=== PATIENT | female | born 1950 | race Caucasian/White ===

== ENCOUNTER 2017-01-09 20:48 | Inpatient (IN) | payer OTHER ==
[2017-01-09 20:59] VITALS: BMI 28.3
--- NOTE | 2017-01-09 22:02 | PDOC ---
History of Present Illness - History of Present Illness Initial Comments: 01/09/17 22:48 Patient is a 66 year old male from with significant medical hx of mitral valve prolapse, anemia, asthma, COPD, Hep C, multiple knee replacements, and anxiety who is presenting to the ED with three days of redness and pain to her posterior right knee. The patient developed a large, circular area of redness and pain to the skin to the back of her right knee three days ago. She characterizes her pain as sharp in quality and reports there is a heat component to the area. Today the patient woke up and noticed there was drainage to the area that began suddenly. She denies any fevers or chills. Patient was admitted to a rehab facility for three years after a knee replacement for a MRSA infection. 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 She was discharged from the [facility] within the past year. Patient is pre-op for hernia surgery (receiving sx in [place]). 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 Surgical Hx: hernia repair, appendectomy, multiple bilateral knee replacements, femur fracture PMD: Kaci Alvarez MD <Melissa Kee - Last Filed: 01/09/17 22:47> <Abimbola Zabala - Last Filed: 01/10/17 01:00> - General Chief Complaint: Wound Stated Complaint: ABCESS/WOUND Time Seen by Provider: 01/09/17 21:23 Past History <Melissa Kee - Last Filed: 01/09/17 22:47> - Past Medical History Anemia: Yes Asthma: Yes Cardiac Disorders: Yes (Mitral Valve Prolapse) COPD: Yes GI Disorders: Yes (hiatal hernia) HTN: Yes Psychiatric Problems: Yes (anxiety) Suicide Attempt (Hx): No Other medical history: adrenal insufficiency, osteoarthirits - Surgical History Abdominal Surgery: Yes (HERNIA REPAIR FOR RUPTURED HERNIA) Appendectomy: Yes Orthopedic Surgery: (FAITH KNEE REPLACEMENT) - Reproductive History Cervical CA: No Dysfunctional Uterine Bleeding: No Ectopic : No Endometrial CA: No Polycystic Ovaries: No Tubal Ligation: No - Immunization History Td Vaccination: Yes Immunization Up to Date: Yes - Psycho/Social/Smoking Cessation Hx Anxiety: No Suicidal Ideation: No Smoking Status: Yes Smoking History: Former smoker Years of Tobacco Use: 20 Have you smoked in the past 12 months: Yes Number of Cigarettes Smoked Daily: 2 If you are a former smoker, when did you quit?: may 2013 Cigars Per Day: 0 Information on smoking cessation initiated: No 'Breaking Loose' booklet given: 06/17/13 Hx Alcohol Use: No Drug/Substance Use Hx: No Substance Use Type: None Hx Substance Use Treatment: No <VjAbimbola - Last Filed: 01/10/17 01:00> - Past Medical History Allergies/Adverse Reactions: Allergies Allergy/AdvReac Type Severity Reaction Status Date / Time No Known Allergies Allergy Verified 07/10/16 15:36 Home Medications: Ambulatory Orders Escitalopram Oxalate [Lexapro -] 20 mg PO DAILY #0 tablet 07/11/13 Pantoprazole Sodium [Protonix -] 40 mg PO DAILY #0 tablet.ec 07/11/13 Lorazepam [Ativan] 1 mg PO TID PRN 10/28/13 Oxycodone HCl/Acetaminophen [Percocet 10-325 mg Tablet -] 1 - 2 tab PO Q4H PRN 10/28/13 Zolpidem Tartrate [Ambien] 10 mg PO HS PRN 10/28/13 Hydrocortisone [Cortef -] 20 mg PO DAILY 01/09/17 Metoprolol Succinate [Toprol Xl -] 25 mg PO BID 01/09/17 Review of Systems - Review of Systems Comments:: 01/09/17 22:49 CONSTITUTIONAL: Absent: fever, chills, diaphoresis, generalized weakness, malaise, loss of appetite HEENT: Absent: rhinorrhea, nasal congestion, throat pain, throat swelling, difficulty swallowing, mouth swelling, ear pain, eye pain, visual changes CARDIOVASCULAR: Absent: chest pain, syncope, palpitations, irregular heart rate, lightheadedness , peripheral edema RESPIRATORY: Absent: cough, shortness of breath, dyspnea with exertion, orthopnea, wheezing, stridor, hemoptysis GASTROINTESTINAL: Absent: abdominal pain, abdominal distension, nausea, vomiting, diarrhea, constipation, melena, hematochezia GENITOURINARY: Absent: dysuria, frequency, urgency, hesitancy, hematuria, flank pain, genital pain MUSCULOSKELETAL: Absent: myalgia, arthralgia, joint swelling SKIN: Present: pain, redness, drainage to skin posterior right knee Absent: itching, pallor HEMATOLOGIC/IMMUNOLOGIC: Absent: easy bleeding, easy bruising, lymphadenopathy, frequent infections ENDOCRINE: Absent: unexplained weight gain, unexplained weight loss, heat intolerance, cold intolerance NEUROLOGIC: Absent: headache, focal weakness or paresthesia, dizziness, unsteady gait, seizure, mental status changes, bladder or bowel incontinence. PSYCHIATRIC: Absent: anxiety, depression, suicidal or homicidal ideation, hallucinations <Melissa Kee - Last Filed: 01/09/17 22:47> *Physical Exam - Vital Signs Last Vital Signs Temp Pulse Resp BP Pulse Ox 97.8 F 67 18 102/66 97 01/09/17 20:53 01/09/17 20:53 01/09/17 20:53 01/09/17 20:53 01/09/17 20:53 - Physical Exam Comments: 01/09/17 22:50 GENERAL: Well developed, well nourished. Awake and alert. No acute distress. HEENT: Normocephalic, atraumatic. PERRLA, EOMI. No conjunctival pallor. Sclera are non- icteric. Moist mucous membranes. Oropharynx is clear. NECK: Supple. Full ROM. No JVD. Carotid pulses 2+ and symmetric, without bruits. No thyromegaly. No lymphadenopathy. CARDIOVASCULAR: Regular rate and rhythm. No murmurs, rubs, or gallops. Distal pulses are 2+ and symmetric. PULMONARY: No evidence of respiratory distress. Lungs clear to auscultation bilaterally. No wheezing, rales or rhonchi. ABDOMINAL: Soft. Non-tender. Non-distended. No rebound or guarding. No organomegaly. Normoactive bowel sounds. MUSCULOSKELETAL: Normal range of motion at all joints. No bony deformities or tenderness. No CVA tenderness. EXTREMITIES: No cyanosis. No clubbing. No edema. No calf tenderness. SKIN: Posterior right knee abscess that is by 9 x 5 cm with central area of draining purulence, erythematous, and tender. Warm and dry. Normal capillary refill. No jaundice. NEUROLOGICAL: Alert, awake, appropriate. Cranial nerves 2-12 intact. Normal speech. PSYCHIATRIC: Cooperative. Good eye contact. Appropriate mood and affect. <Melissa Kee - Last Filed: 01/09/17 22:47> - Vital Signs Last Vital Signs Temp Pulse Resp BP Pulse Ox 97.8 F 67 18 102/66 97 01/09/17 20:53 01/09/17 20:53 01/09/17 20:53 01/09/17 20:53 01/09/17 20:53 <Abimbola Zabala - Last Filed: 01/10/17 01:00> ED Treatment Course - LABORATORY CBC & Chemistry Diagram: 01/09/17 22:30 01/09/17 22:30 <Abimbola Zabala - Last Filed: 01/10/17 01:00> *DC/Admit/Observation/Transfer - Attestations Scribe Attestion: 01/09/17 22:51 Documentation prepared by Melissa Kee, acting as medical services assistant for Abimbola Zabala MD. <Melissa Kee - Last Filed: 01/09/17 22:47> - Discharge Dispostion Admit: Yes <Abimbola Zabala - Last Filed: 01/10/17 01:00> Diagnosis at time of Disposition: Cutaneous abscess Qualifiers: Site of cutaneous abscess: extremity Site of cutaneous abscess of extremity: lower extremity Laterality: right Qualified Code(s): L02.415 - Cutaneous abscess of right lower limb - Referrals Referrals: Kaci Alvarez MD [Primary Care Provider] -
[2017-01-09] MEDS ORDERED: VANCOMYCIN 1,000 MG in DEXTROSE 5%-WATER - 250 ML IVPB ONE (22:16)
[2017-01-09] MEDS ORDERED: PIPERACILLIN/TAZOB 3.375 GM 3.375 GM in DEXTROSE 5%-WATER - 50 ML IVPB ONE (22:16)
[2017-01-09] MEDS ORDERED: PIPERACILLIN/TAZOB 3.375 GM 50 ML IVPB ONE (22:48)
[2017-01-09] MEDS ORDERED: VANCOMYCIN 1 GRAM (PRE-DOCKED) 250 ML IVPB ONE (22:48)
[2017-01-09] MEDS ORDERED: morphine CARPU-JECT 2 MG/1 ML DISP.SYRIN IVPUSH ONE (22:54)
[2017-01-09 23:00] LABS: INR 1.06 (0.82-1.09); PROTHROMBIN TIME (PATIENT) 11.7 SEC (9.98-11.88)
[2017-01-09 23:03] LABS: ACTIVATED PTT 29.8 SECONDS (26.9-34.4)
[2017-01-09 23:06] LABS: BASOPHIL 0.8 % (0-2.0); EOSINOPHIL 2.8 % (0-4.5); MCH 29.1 pg (25.7-33.7); MCHC 33.2 g/dl (32.0-36.0); MEAN CELL VOLUME 87.7 fl (80-96); MEAN PLT VOLUME 7.4 fl (7.5-11.1); NEUTROPHILS 68.5 % (42.8-82.8); PLATELET COUNT 257 K/MM3 (134-434); RDW 14.9 % (11.6-15.6)
[2017-01-09] MEDS ORDERED: ONDANSETRON 4 MG/2 ML VIAL ONE (23:22)
[2017-01-09] MEDS ORDERED: morphine CARPU-JECT 2 MG/1 ML DISP.SYRIN ONE (23:22)
[2017-01-09 23:25] LABS: URINE APPEARANCE CLEAR; URINE BILIRUBIN NEGATIVE (NEGATIVE); URINE BLOOD NEGATIVE (NEGATIVE); URINE COLOR DKYELLOW; URINE GLUCOSE (UA) NEGATIVE (NEGATIVE); URINE KETONE NEGATIVE (NEGATIVE); URINE NITRITE NEGATIVE (NEGATIVE); URINE PROTEIN NEGATIVE (NEGATIVE); URINE UROBILINOGEN 4.0 E.U/dl E.U./dl (0.2-1.0)
[2017-01-09 23:28] LABS: URINE LEUK ESTERASE 1+ (NEGATIVE)
[2017-01-09 23:29] LABS: URINE HYALINE CAST 10 /lpf; URINE MUCUS RARE; URINE RBC 3 /hpf (0-3); URINE WBC 21 /hpf (3-5)
[2017-01-09] MEDS ORDERED: ONDANSETRON 4 MG/2 ML VIAL IVPUSH ONE (23:29)
[2017-01-09 23:39] LABS: ALBUMIN 3.4 g/dl (3.4-5.0); CALCIUM 9.1 mg/dL (8.5-10.1); COCKROFT - GAULT 60.588
[2017-01-09 23:41] LABS: BILIRUBIN,TOTAL 0.8 mg/dL (0.2-1.0); TOT PROT 6.9 g/dl (6.4-8.2)
--- NOTE | 2017-01-10 01:46 | HP ---
CHIEF COMPLAINT: Right knee redness, swelling, and pain. PCP: Tg Alvarez Orthoperdic surgeon: Dr. Cam Garcia, [facility] ( [address], [address], [place] [address], , ) HISTORY OF PRESENT ILLNESS: 66 year old female with pmh of multiple b/l knee replacement (last one in 2012) , MRSA septic arthritis and osteomyelitis (2012), HTN presented to the ED with complaint of right knee pain. The pain started on Sunday01/07/17 in posterior right knee, 06/05 at the most, constant, sharp, non radiating. Pt also had redness, swelling, heat in right posterior knee which was worsening and extended to ankle. The redness started to drain purulent and serosanguinous fluid and the redness receded to the right posterior calf. The patient does not know how it started, she said there was no trauma, no pimple, no skin cut that she know of. She has limited range of motion in that knee and now is unable to walk because of the pain. She denies any numbness, tingling, weakness in that leg. No fever, chills, n/v, dizziness, confusion. Pt also complained of urinary frequency for the past few days and dysuria last 2 days but no hematuria. ER course was notable for: (1) CBC, CMP, UA, Blood culture, wound cultur, urine culture (2) Xary right knee (3) Vancomycin, zosyn, Morphine, zofran Recent Travel: none PAST MEDICAL HISTORY: HTN, osteoarthritis, anxiety, gastric ulcer, adrenal insufficiency, MRSA septic arthritis and osteomyelitis (2013), Mitral valve prolapse, anxiety disorder, asthma, COPD, anemia, hepatitic C PAST SURGICAL HISTORY: Hernia repair, appendectomy, 1 total left knee replacement, 6 right knee replacement (3 total, 3 revisions over 20 years, last one was in 2012) Social History: Smoking: former smoker, quit 3 years ago, Alcohol: Drugs: Family History: Allergies No Known Allergies Allergy (Verified 07/10/16 15:36) HOME MEDICATIONS: Home Medications Medication Instructions Recorded Escitalopram Oxalate [Lexapro -] 20 mg PO DAILY #0 tablet 07/11/13 Pantoprazole Sodium [Protonix -] 40 mg PO DAILY #0 tablet.ec 07/11/13 Lorazepam [Ativan] 1 mg PO TID PRN 10/28/13 Oxycodone HCl/Acetaminophen 1 - 2 tab PO Q4H PRN 10/28/13 [Percocet 10-325 mg Tablet -] Zolpidem Tartrate [Ambien] 10 mg PO HS PRN 10/28/13 Hydrocortisone [Cortef -] 20 mg PO DAILY 01/09/17 Metoprolol Succinate [Toprol Xl -] 25 mg PO BID 01/09/17 REVIEW OF SYSTEMS CONSTITUTIONAL: Absent: fever, chills, diaphoresis, generalized weakness, malaise, loss of appetite, weight change HEENT: Absent: rhinorrhea, nasal congestion, throat pain, throat swelling, difficulty swallowing, mouth swelling, ear pain, eye pain, visual changes CARDIOVASCULAR: Absent: chest pain, syncope, palpitations, irregular heart rate, lightheadedness , peripheral edema RESPIRATORY: Absent: cough, shortness of breath, dyspnea with exertion, orthopnea, wheezing, stridor, hemoptysis GASTROINTESTINAL: Absent: abdominal pain, abdominal distension, nausea, vomiting, diarrhea, constipation, melena, hematochezia GENITOURINARY: Absent: dysuria, frequency, urgency, hesitancy, hematuria, flank pain, genital pain MUSCULOSKELETAL: arthralgia, joint swelling Absent: myalgia, back pain, neck pain SKIN: Absent: rash, itching, pallor HEMATOLOGIC/IMMUNOLOGIC: Absent: easy bleeding, easy bruising, lymphadenopathy, frequent infections ENDOCRINE: Absent: unexplained weight gain, unexplained weight loss, heat intolerance, cold intolerance NEUROLOGIC: Absent: headache, focal weakness or paresthesias, dizziness, unsteady gait, seizure, mental status changes, bladder or bowel incontinence PSYCHIATRIC: Absent: anxiety, depression, suicidal or homicidal ideation, hallucinations. PHYSICAL EXAMINATION Vital Signs - 24 hr 01/09/17 20:53 Temperature 97.8 F Pulse Rate 67 Respiratory 18 Rate Blood Pressure 102/66 O2 Sat by Pulse 97 Oximetry (%) GENERAL: Awake, alert, and fully oriented, in no acute distress. HEAD: Normal with no signs of trauma. EYES: Pupils equal, round and reactive to light, extraocular movements intact, sclera anicteric, conjunctiva clear. No lid lag. EARS, NOSE, THROAT: Ears normal, nares patent, oropharynx clear without exudates. Moist mucous membranes. NECK: Normal range of motion, supple without lymphadenopathy, JVD, or masses. LUNGS: Breath sounds equal, clear to auscultation bilaterally. No wheezes, and no crackles. No accessory muscle use. HEART: Regular rate and rhythm, normal S1 and S2 with murmur, rub or gallop. ABDOMEN: Soft, nontender, not distended, normoactive bowel sounds, no guarding, no rebound, no masses. No hepatomegaly or splenomegaly. MUSCULOSKELETAL: Normal range of motion at all joints. No bony deformities or tenderness. No CVA tenderness. UPPER EXTREMITIES: 2+ pulses, warm, well-perfused. No cyanosis. No clubbing. No peripheral edema. LOWER EXTREMITIES: 2+ pulses, warm, well-perfused. small area of anterior right knee redness and swelling, tenderness. Posterior right, keen swelling, tenderness, redness, draining minimal amount of serosanguinous fluid extending to calf/midtibia. Decreased range of motion in right knee. NEUROLOGICAL:. Normal speech. gait not observed. strength 5/5 in b/l lower ext, right knee flexion slightly limited due to pain, normal sensation to tactile stimuli. normal plantar reflex and patellar reflex b/l. PSYCHIATRIC: Cooperative. Good eye contact. Appropriate mood and affect. SKIN: Warm, dry, normal turgor, no rashes or lesions noted, normal capillary refill. Redness, swelling, warmth in rigth posterior knee extended to midtibia posteriorly. Laboratory Results - last 24 hr 01/09/17 01/09/17 01/09/17 22:30 22:30 22:30 WBC 8.0 RBC 4.04 Hgb 11.8 D Hct 35.4 MCV 87.7 MCHC 33.2 RDW 14.9 Plt Count 257 D MPV 7.4 L Neutrophils % 68.5 Lymphocytes % 16.2 D Monocytes % 11.7 H Eosinophils % 2.8 D Basophils % 0.8 INR 1.06 PTT (Actin FS) 29.8 Sodium 139 Potassium 4.2 D Chloride 101 Carbon Dioxide 24 Anion Gap 14 BUN 17 Creatinine 1.0 D Creat Clearance w eGFR 55.30 Random Glucose 84 Calcium 9.1 Total Bilirubin 0.8 D AST 20 ALT 18 D Alkaline Phosphatase 110 Total Protein 6.9 Albumin 3.4 Urine Color Urine Appearance Urine pH Urine Protein Urine Glucose (UA) Urine Ketones Urine Blood Urine Nitrite Urine Bilirubin Urine Urobilinogen Ur Leukocyte Esterase Urine RBC Urine WBC Ur Epithelial Cells Hyaline Casts Urine Mucus Blood Type Antibody Screen 01/09/17 01/09/17 22:30 23:21 WBC RBC Hgb Hct MCV MCHC RDW Plt Count MPV Neutrophils % Lymphocytes % Monocytes % Eosinophils % Basophils % INR PTT (Actin FS) Sodium Potassium Chloride Carbon Dioxide Anion Gap BUN Creatinine Creat Clearance w eGFR Random Glucose Calcium Total Bilirubin AST ALT Alkaline Phosphatase Total Protein Albumin Urine Color Dkyellow Urine Appearance Clear Urine pH 5.0 Urine Protein Negative Urine Glucose (UA) Negative Urine Ketones Negative Urine Blood Negative Urine Nitrite Negative Urine Bilirubin Negative Urine Urobilinogen 4.0 e.u/dl H Ur Leukocyte Esterase 1+ H Urine RBC 3 Urine WBC 21 Ur Epithelial Cells Rare Hyaline Casts 10 Urine Mucus Rare Blood Type O POSITIVE Antibody Screen Negative ASSESSMENT/PLAN: 66 year old female with pmh of multiple b/l knee replacement (last one in 2012) , MRSA septic arthritis and osteomyelitis (2012), HTN presented to the ED with complaint of right knee pain, redness, swelling, draining pus and serosanguinous fluid. Posterior right knee abscess/cellulitis r/o septic arthritis Pt has h/ b/l knee replacement pt has complication s/p knee replacement with MRSA sepstic arthritis Pt has redness, swelling, draining pus and serosanguinous fluid sepsis criteria not met by SIRS or Qsofa Xray right knee Consider CT right knee received vancomycin and zosyn in ed ID consult Dr Wray Consider orthopedic consult CBC in am ESR CRP Oxycodone 10mg PO q6h prn UTI pt with dysuria and frequency No suprapubic or CVA tenderness UA with positive leuk, wbc 20 Urine culture sent will follow On Zosyn HTN resume Toprol XL Anxiety disoder Lexapro Xanax Insomnia Ambien qhs prn Osteoarthtitis acetaminophen 650 po q6h prn COPD/Asthma not in exacerbation Duoneb PRN q4h FEN Fluid: NS at 75ml/h Electrolytes: NO abnormalities Nutrtion: low na diet DVT prophylaxis: heparin 5000U sq tid Disposition: Admit to [facility] Visit type - Emergency Visit Emergency Visit: Yes ED Registration Date: 01/10/17 Care time: The patient presented to the Emergency Department on the above date and was hospitalized for further evaluation of their emergent condition. - New Patient This patient is new to me today: Yes Date on this admission: 01/10/17 - Critical Care Critical Care patient: No
[2017-01-10] MEDS ORDERED: ACETAMINOPHEN 325 MG TABLET (FP) PO PRN (02:08)
[2017-01-10] MEDS ORDERED: ZOLPIDEM TARTRATE 5 MG TABLET PO PRN (02:09)
[2017-01-10] MEDS ORDERED: ALBUTEROL SO4 2.5/IPRATROPIUM 0.5 INH SOL 3 ML VIAL.NEB. NEB PRN (02:13)
[2017-01-10] MEDS ORDERED: ZOLPIDEM TARTRATE 5 MG TABLET ONE (02:15)
[2017-01-10] MEDS ORDERED: OXYCODONE/APAP 5/325MG COMBO TABLET ONE (02:15)
[2017-01-10] MEDS ORDERED: HEPARIN NA (PORCINE) 5,000 UNITS/ML 1ML VIAL ONE ×2 (02:16→14:27)
[2017-01-10] MEDS: oxyCODONE HCL 5 MG TABLET PO PRN ×3 (02:25→16:10)
--- NOTE | 2017-01-10 06:26 | PN ---
Teaching Attending Note Name of Resident: Nadeem Kim ATTENDING PHYSICIAN STATEMENT I saw and evaluated the patient. I reviewed the resident's note and discussed the case with the resident. I agree with the resident's findings and plan as documented. SUBJECTIVE: 66 year old female with history of MRSA septic arthritis/hardware infection post R knee replacement 4 years ago presents today c/o pain, swelling and redness of the right popliteal area since Sunday. Swelling and tenderness subsided after area started draining purulent material. Denies fever. PAST MEDICAL HISTORY: HTN osteoarthritis anxiety gastric ulcer adrenal insufficiency MRSA septic arthritis and osteomyelitis (2012) Mitral valve prolapse COPD anemia hepatitic C PAST SURGICAL HISTORY: Hernia repair appendectomy 1 total left knee replacement 6 right knee replacement (3 total, 3 revisions over 20 years, last one was in 2012) Social History: Smoking: former smoker, quit 3 years ago, Alcohol: Drugs: Family History: No history of premature CAD Allergies No Known Allergies Allergy (Verified 07/10/16 15:36) OBJECTIVE: Vital Signs Temperature 97.8 F 01/09/17 20:53 Pulse Rate 67 01/09/17 20:53 Respiratory Rate 18 01/09/17 20:53 Blood Pressure 102/66 01/09/17 20:53 O2 Sat by Pulse Oximetry (%) 97 01/09/17 20:53 ENERAL: Awake, alert, and fully oriented, in no acute distress. HEAD: Normal with no signs of trauma. EYES: Pupils equal, round and reactive to light, extraocular movements intact, sclera anicteric, conjunctiva clear. No lid lag. EARS, NOSE, THROAT: Ears normal, nares patent, oropharynx clear without exudates. Moist mucous membranes. NECK: Normal range of motion, supple without lymphadenopathy, JVD, or masses. LUNGS: Breath sounds equal, clear to auscultation bilaterally. No wheezes, and no crackles. No accessory muscle use. HEART: Regular rate and rhythm, normal S1 and S2 with murmur, rub or gallop. ABDOMEN: Soft, nontender, not distended, normoactive bowel sounds, no guarding, no rebound, no masses. No hepatomegaly or splenomegaly. MUSCULOSKELETAL: Normal range of motion at all joints. No bony deformities or tenderness. No CVA tenderness. UPPER EXTREMITIES: 2+ pulses, warm, well-perfused. No cyanosis. No clubbing. No peripheral edema. LOWER EXTREMITIES: 2+ pulses, warm, well-perfused. small area of anterior right knee redness and swelling, tenderness. Posterior right, keen swelling, tenderness, redness, draining minimal amount of serosanguinous fluid extending to calf/midtibia. Decreased range of motion in right knee. NEUROLOGICAL:. Normal speech. gait not observed. strength 5/5 in b/l lower ext, right knee flexion slightly limited due to pain, normal sensation to tactile stimuli. normal plantar reflex and patellar reflex b/l. PSYCHIATRIC: Cooperative. Good eye contact. Appropriate mood and affect. SKIN: Warm, dry, normal turgor, no rashes or lesions noted, normal capillary refill. Redness, swelling, warmth in rigth posterior knee extended to midtibia posteriorly. CBC, BMP 01/09/17 22:30 01/09/17 22:30 UA - positive for UTI ASSESSMENT AND PLAN: Posterior right knee abscess/cellulitis r/possible OM and risk of infected hardware. History of MRSA - Vancomycin IV - ID eval - Imaging - XR and CT if needed - Surgery eval for drainage UTI - Zosyn given - cultures are sent HTN resume Toprol XL , moitor BP DVT PPX - heparin SQ anticipated length of treatment with broad spectrum IV antibiotics is greater then 2 midnights. Admit
[2017-01-10] MEDS: HEPARIN NA (PORCINE) 5,000 UNITS/ML 1ML VIAL SQ SCH ×2 (06:31→14:30)
[2017-01-10] MEDS ORDERED: PIPERACILLIN/TAZOB 3.375 GM/50 ML PRE-DOCKED IVPB ONE (08:00)
[2017-01-10 08:23] LABS: MCH 29.5 pg (25.7-33.7); MCHC 33.3 g/dl (32.0-36.0); MEAN CELL VOLUME 88.5 fl (80-96); MEAN PLT VOLUME 7.3 fl (7.5-11.1); PLATELET COUNT 247 K/MM3 (134-434); RDW 14.8 % (11.6-15.6); WHITE BLOOD COUNT 6.3 K/mm3 (4.0-10.0)
--- NOTE | 2017-01-10 09:23 | CONSULT ---
Consult - text type - Consultation Consultation Note: FULL CONSULT DICTATED IMP: INFECTED RIGHT TOTAL KNEE REVISION PLAN: TRANSFER TO PATIENTS ORTHOPEDIST(DR HAIRSTON)
[2017-01-10] MEDS ORDERED: oxyCODONE HCL 5 MG TABLET ONE (09:59)
[2017-01-10] MEDS ORDERED: METOPROLOL SUCCINATE 25 MG TAB.SR.24H (FP) PO SCH (10:00)
[2017-01-10] MEDS ORDERED: HYDROCORTISONE 20 MG TABLET PO SCH (10:00)
[2017-01-10] MEDS ORDERED: PANTOPRAZOLE 40 MG TABLET (FP) PO SCH (10:00)
[2017-01-10] MEDS ORDERED: ESCITALOPRAM OXALATE 20 MG TABLET (FP) PO SCH (10:00)
[2017-01-10] MEDS ORDERED: LORazepam 0.5 MG TABLET ONE (10:08)
[2017-01-10] MEDS: LORazepam 1 MG TABLET PO PRN ×2 (10:08→16:09)
[2017-01-10] MEDS ORDERED: VANCOMYCIN 1 GRAM (PRE-DOCKED) 1,000 MG/250 ML BAG IVPB SCH (10:15)
--- NOTE | 2017-01-10 10:49 | CONS ---
DATE OF CONSULTATION: 01/10/2017 EMERGENCY ROOM DICTATION/[facility] Patient is a 66-year-old female with a long history of multiple surgeries to her right knee. She had a right total knee replacement arthroplasty that was infected. It had multiple surgeries and debridements, and eventually she had a revision stem placement with significant shortening of the knee. This was done over 2 years ago. Patient has been doing okay, noticed having some drainage out of the posterior aspect of the knee, and presents to our office today. Patient is alert and oriented and in no apparent distress. PHYSICAL EXAMINATION: She has a fluctuance in the posterior inferior aspect of the popliteal fossa with a draining sinus. This sinus was milked and got out approximately 40 mL of purulent material. Some of the erythema wraps around to the area of the anterior aspect of the knee, and she has some swelling there, as well. The rest of the calf is soft and nontender. She is about a few inches shorter on the right side than on the left. She has multiple surgical scars anteriorly and medially in the knee with poor range of motion of that knee, good motion hip, ankle and toes. IMAGING: X-rays show a cemented revision stem with rods up and down the femoral and tibial canals. No evidence of any fracture or obvious lucencies at this time. LABORATORY DATA: Her white count is within normal limits. Cultures are pending. 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 Her infection was at one time with methicillin-resistant staphylococcus aureus and now with recurrence of her infection. PLAN: At this point, I believe that the patient needs to be transferred back to her orthopedic surgeon in [place], whom she says is Dr. Garcia. We will contact Dr. Garcia and arrange for a transfer. Currently, patient is in no distress with no signs of sepsis. After cultures, antibiotics will be instituted in the interim, and we will arrange for transfer to her orthopedic surgeon. MASON BEONIT M.D. [id number]
[2017-01-10] MEDS ORDERED: PANTOPRAZOLE 40 MG TABLET (FP) ONE (10:53)
[2017-01-10] MEDS ORDERED: PIPERACILLIN/TAZOB 3.375 GM 50 ML IVPB ONE (10:53)
[2017-01-10] MEDS ORDERED: VANCOMYCIN 1 GRAM (PRE-DOCKED) 250 ML IVPB ONE (10:53)
--- NOTE | 2017-01-10 12:08 | CONS ---
DATE OF CONSULTATION: 01/10/2017 REQUESTING PHYSICIAN: The hospitalist service. HISTORY OF PRESENT ILLNESS: This is a 66-year-old woman with a past medical history of multiple knee surgeries. She has had six surgeries to her right knee, three total knee replacements, three revisions (the last was in 2012). She has had a left total knee replacement about 20 years ago. She reports MRSA in the knee, was on antibiotics, she thinks, for most of 2013 and I suspect 2014. She was at the [facility] until May of 2016. Since then, she has been living in a senior home. She reports acute onset on Sunday where her right leg got behind her right knee. The leg got hot and red. She had burning sensation. It traveled down to her ankle. It has now traveled around to the anterior side. She noted some oozing from the area. She denied any fevers or chills. She came to the emergency room with these complaints. She denies any insect bites. She denies any fevers or chills. In the emergency room, she had an x-ray of the knee. She had drainage from the site, which was cultured. She was started on vancomycin and Zosyn. She was given morphine for pain. She is currently resting comfortably with continued pain of the right knee. She notices now there is erythema around the anterior aspect. PAST MEDICAL HISTORY: Is notable for hypertension, osteoarthritis, anxiety, perforated gastric ulcer. She has MRSA prosthetic knee infection, mitral valve prolapse, anxiety disorder, asthma, COPD, anemia, hepatitis C (does not get treated). SURGICAL HISTORY: Is notable for appendectomy, one left total knee replacement, six right knee surgeries, three total replacements, three revisions, and she had a gastric ulcer repair. She reports hiatal hernia surgery. ALLERGIES: She has no known drug allergies. MEDICATIONS: At home include hydrocortisone, metoprolol. SOCIAL HISTORY: She is a former substance abuser, has not used anything in 40 years. She is a former smoker, quit three years ago. REVIEW OF SYSTEMS: There are no fevers or chills. She has no cough. She has no nausea, vomiting, diarrhea, or dysuria. Her symptoms are limited to her leg. Her orthopedist is Dr. Cam Garcia at [facility]. PHYSICAL EXAMINATION General: She is awake and alert. Vital signs: She has no fever. Her temperature is 98.2, her pulse is 84, blood pressure is 118/64, respiratory rate 18, she is saturating 98% on room air. HEENT: She is normocephalic. Her eyes are anicteric. Neck: Supple. Lungs: Clear to auscultation. Heart: Regular rate and rhythm. Abdomen: Soft, nontender. Extremities: Notable for a well-healed left total knee incision. Right leg is several inches shorter than the left. She has erythema around the entire back wrapping around to the front of her right knee. There is purulent drainage from the back side, from the posterior aspect of the wound. She has a good dorsalis pedis pulse DIAGNOSTIC DATA: White count is 6.3, hemoglobin 7.7, platelets are 247. INR is 1. BUN 17, creatinine 1. LFTs are normal. CRP of 4.1. Lactic acid is 1.3. UA shows 1+ leukocytes with 21 white cells. Prior culture from when her knee was drained at [facility] in 2012 showed MRSA. Cultures of the blood in the wound are pending at this time. Chest x-ray shows a large hiatal hernia, no evidence of pneumonia. SUMMARY: 1. This is a 66-year-old woman with what appears to be an abscess of her right knee. Concern is for recurrent right total knee replacement. Patient was discussed with the orthopedist, Dr. Dumont. Recommendations are for transfer back to her doctor given the fact that she has such a complicated history of knee surgery and infection. Would continue vancomycin and Zosyn as ordered until cultures are back. Would agree that transfer is probably the best option in terms of managing her leg. 2. Hiatal hernia. Would definitely postpone surgery at this time. 3. History of hepatitis C, which has not been treated. YOVANI TEJEDA M.D. [id number]
[2017-01-10 12:31] LABS: ERYTHROCYTE SEDIMENTATION RATE 30 mm/hr (0-30)
--- NOTE | 2017-01-10 14:43 | EKG ---
Test Reason : Blood Pressure : / mmHG Vent. Rate : 063 BPM Atrial Rate : 063 BPM P-R Int : 168 ms QRS Dur : 090 ms QT Int : 446 ms P-R-T Axes : 021 006 032 degrees QTc Int : 456 ms NORMAL SINUS RHYTHM SEPTAL INFARCT (CITED ON OR BEFORE 05-JUL-2013) ABNORMAL ECG WHEN COMPARED WITH ECG OF 10-JUL-2016 15:53, QRS DURATION HAS INCREASED QUESTIONABLE CHANGE IN INITIAL FORCES OF SEPTAL LEADS Confirmed by KELLY FLOOD MD ([id number]) on 01/10/2017 2:43:23 PM Referred By: Confirmed By:KELLY FLOOD MD
--- NOTE | 2017-01-10 15:22 | DS ---
Physical Exam: SUBJECTIVE: Patient seen and examined at bedside this morning. Complaints of pain over the posterior part of the knee. No other complaints. Denies chest pain , sob, cough, palpitation, abdominal pain, nausea or vomiting, fever, chills, rigors or sweating. OBJECTIVE: Vital Signs Period Temp Pulse Resp BP Sys/Xiao Pulse Ox Last 24 Hr 97.8 F-98.2 F 71-89 18-19 118-121/60-76 98-99 PHYSICAL EXAM GENERAL: Moderately built female, Awake, alert, and fully oriented, in no acute distress. HEAD: Normal with no signs of trauma. EYES: EOM intact, no pallor or icterus. EARS, NOSE, THROAT: Ears normal, nares patent, oropharynx clear without exudates. Moist mucous membranes. NECK: Normal range of motion, supple without lymphadenopathy, JVD, or masses. LUNGS: Breath sounds equal, clear to auscultation bilaterally. No wheezes, and no crackles. No accessory muscle use. HEART: Regular rate and rhythm, normal S1 and S2 with murmur, rub or gallop. ABDOMEN: Soft, nontender, not distended, normoactive bowel sounds, no guarding, no rebound, no masses. No hepatomegaly or splenomegaly. MUSCULOSKELETAL: Normal range of motion at all joints. No bony deformities or tenderness. No CVA tenderness. UPPER EXTREMITIES: 2+ pulses, warm, well-perfused. No cyanosis. No clubbing. No peripheral edema. LOWER EXTREMITIES: 2+ pulses, warm, well-perfused. small area of anterior right knee redness and swelling, tenderness. Posterior right, knee swelling, tenderness, redness, draining minimal amount of serosanguinous fluid extending to calf/mid tibia. Decreased range of motion in right knee. NEUROLOGICAL:. Normal speech. gait not observed. strength 5/5 in b/l lower ext, right knee flexion slightly limited due to pain, normal sensation to tactile stimuli. normal plantar reflex and patellar reflex b/l. PSYCHIATRIC: Cooperative. Good eye contact. Appropriate mood and affect. SKIN: Warm, dry, normal turgor, no rashes or lesions noted, normal capillary refill. Redness, swelling, warmth in rigth posterior knee extended to midtibia posteriorly. LABS Laboratory Results - last 24 hr 05/17/17 05/17/17 05/17/17 01:46 08:15 08:15 WBC 6.3 RBC 3.98 Hgb 11.7 Hct 35.2 MCV 88.5 MCHC 33.3 RDW 14.8 Plt Count 247 MPV 7.3 L ESR 30 Lactic Acid 1.340 C-Reactive Protein 4.1 H Right knee x-ray 01/10/17: Right knee: HISTORY: Abscess. 4 views of the right knee are provided. There is a constrained right knee revision arthroplasty with longstem tibial and femoral components and the tips of the tibial and femoral stems are not visualized in their entirety on the frontal view and the tibial stem is not fully imaged on the lateral view. There is lucency at the cement bone interface on the femoral side and recommend clinical correlation for loosening or infection. A linear lucency extending through the cement toward the lateral aspect of the femoral stem is also seen and recommend clinical correlation. There is soft tissue swelling. IMPRESSION: Right knee arthroplasty as above. HOSPITAL COURSE: Date of Admission:01/10/17 Date of Discharge: 01/10/17 66 year old female with pmh of multiple b/l knee replacement (last one in 2012) , MRSA septic arthritis and osteomyelitis (2012), HTN presented to the ED with complaint of right knee pain, redness, swelling, draining pus and serosanguinous fluid was admitted overnight for evaluation of posterior right knee abscess/cellulitis and to r/o septic arthritis. As per the patient, she has had multiple surgeries in the right knee (6times) and had an infection 2 years ago . Had complication s/p knee replacement with MRSA sepstic arthritis in the same knee as per the patient. On admission, she had redness, swelling, draining pus and serosanguinous fluid coming out from right popliteal fossa. Erythema later spreaded to the anterior part of the knee. On arrival, she was afebrile, hemodynamically stable and didn' t meet SIRS criteria or qSOFA. Patient was treated with IV fluids, IV Vancomycin and Zosyn. Dr Dumont ( Orthopedics) saw the patient this morning and recommended Incision and Drainage with debridement of the right knee. Patient's orthopedic surgeon Dr. Jose Levy was called at [phone] ([address]). Dr Dumont and Dr. Garcia spoke over the phone regarding the further management of the patient. Plan is to send the patient to [place] [id number] [facility] ) for surgery tomorrow. Spoke with Dr. Garcia over the phone and he accepted the patient. Spoke with his PA Mr. Cross ) who suggested to keep the patient NPO after midnight for the procedure. Spoke with the Orthopedic resident at [facility] ( Dr Yin) over the phone who is trying to arrange a bed at the hospital so we could start the process of transfer. Plan of care explained to the patient. She verbalized understanding. Case discussed with Dr. Rojas. Minutes to complete discharge: 45 Discharge Summary Reason For Visit: SKIN ABSCESS Current Active Problems Skin abscess (Acute) Condition: Stable - Instructions Diet, Activity, Other Instructions: You have an infection in the back of the knee called popliteal fossa abscess which needs to be drained and needs debridement. Spoke with Dr. Garcia over the phone and he accepted you at the [facility]. He will be operating tomorrow so you will not be given anything to eat after midnight. If you require any information regarding your health and the course of hospital stay, please feel free to contact us. Referrals: Kaci Alvarez MD [Primary Care Provider] - - Home Medications Comprehensive Discharge Medication List: Ambulatory Orders Escitalopram Oxalate [Lexapro -] 20 mg PO DAILY #0 tablet 07/11/13 Pantoprazole Sodium [Protonix -] 40 mg PO DAILY #0 tablet.ec 07/11/13 Lorazepam [Ativan] 1 mg PO TID PRN 10/28/13 Oxycodone HCl/Acetaminophen [Percocet 10-325 mg Tablet -] 1 - 2 tab PO Q4H PRN 10/28/13 Zolpidem Tartrate [Ambien] 10 mg PO HS PRN 10/28/13 Hydrocortisone [Cortef -] 20 mg PO DAILY 01/09/17 Metoprolol Succinate [Toprol Xl -] 25 mg PO BID 01/09/17 This patient is new to me today: Yes Date on this admission: 01/10/17 Emergency Visit: Yes ED Registration Date: 01/10/17 Care time: The patient presented to the Emergency Department on the above date and was hospitalized for further evaluation of their emergent condition. Critical Care patient: No - Discharge Referral Referred to [facility] Med P.C.: No
--- NOTE | 2017-01-10 16:11 | PN ---
Teaching Attending Note Name of Resident: Pauly Arevalo ATTENDING PHYSICIAN STATEMENT I saw and evaluated the patient. I reviewed the resident's note and discussed the case with the resident. I agree with the resident's findings and plan as documented. SUBJECTIVE: no fever or chills, no abd pain, increased urination but no burning or hesitancy OBJECTIVE: NAD , AAOx3 CV: RRR. lungs : CTAB abd: soft, NT< ND < NL BS Ext : RLE with erythematous area, and induration on the popliteal area. with a small opening with no drainage . DP 2+ b/l . possible R knee effusion . surgical scars on both knees anteriorly ASSESSMENT AND PLAN: 66 y/o lady with h/o adrenal insufficiency , B/l TKR, and septic joint who presented with R posterior knee pain and swelling , and was found to have a draining abscess 1- R popliteal abscess with possible involvement of the artificial joint . ( lucency at level of cement /bone junction on xray ) puss induced by ortho with squeezing - cont vanco and zosyn - blood cx and wound cx - pt is accepted for Tx to ortho at [facility] , for further mgt 2- asymptomatic pyuria . monitor . already on Abx 3- adrenal insufficiency , cont steroids daily dispo : accepted for tx to OSH
[2017-01-10] MEDS ORDERED: PIPERACILLIN/TAZOB 3.375 GM/50 ML PRE-DOCKED IVPB SCH (18:00)
[2017-01-10 18:20] VITALS: BP 106/50; PULSE 77; TEMP 98
== END 2017-01-10 20:16 | disposition short-term general hospital (02) | DRG 560 ==
LOC: JER 20:48 → JERBED 01-10 01:00 → UNDOADMIN 01-10 01:21 → JERBED 01-10 01:21 → J6S 01-10 16:02
PROVIDERS: ADMIT Internal Medicine; ATTEND Internal Medicine
DX: T84.53XA Infection and inflammatory reaction due to internal right knee prosthesis, initial encounter (principal); L02.415 Cutaneous abscess of right lower limb; N39.0 Urinary tract infection, site not specified; E27.40 Unspecified adrenocortical insufficiency; J44.9 Chronic obstructive pulmonary disease, unspecified; J45.909 Unspecified asthma, uncomplicated; D64.9 Anemia, unspecified; I34.1 Nonrheumatic mitral (valve) prolapse; K44.9 Diaphragmatic hernia without obstruction or gangrene; G47.00 Insomnia, unspecified; F41.9 Anxiety disorder, unspecified; I10 Essential (primary) hypertension; K25.9 Gastric ulcer, unspecified as acute or chronic, without hemorrhage or perforation; Z96.653 Presence of artificial knee joint, bilateral; Z87.891 Personal history of nicotine dependence; Z86.19 Personal history of other infectious and parasitic diseases; Y83.8 Other surgical procedures as the cause of abnormal reaction of the patient, or of later complication, without mention of misadventure at the time of the procedure; Y92.098 Other place in other non-institutional residence as the place of occurrence of the external cause
CPT/HCPCS: 36415; 71010-TC; 73562-TC-RT; 80053; 81003; 81015; 83605; 85025; 85027; 85610; 85651; 85730; 86140; 86850; 86900; 86901; 87040; 87070; 87086; 87186; 87205; 93005; 93010; 99284-25; J1644

== ENCOUNTER 2017-03-26 14:09 | Inpatient (IN) | payer OTHER ==
--- NOTE | 2017-03-26 14:33 | PDOC ---
History of Present Illness <Ashli Light - Last Filed: 03/26/17 18:12> - General History Source: Patient Exam Limitations: Clinical Condition - History of Present Illness Initial Comments: 03/26/17 14:37 67y F hx of anxiety, copd, osteoarthritis, HCV, recent skin infection which she is on bactrim for presents from home via EMS for complaing of persistent vomiting since satuday (x 3 days). Pt endorses epgiastric pain that is constant. Pt notes the vomiting is black colored. Pt denies any diarrhea, chest pain, shortness of breath, palpitations, fever/chills, dysuria. Pt note she does take motrin 4x daily for a while. history limited due to the pts clinical condition. The pt does endorse having a dark color stool today. PMD dr. kaci alvarez <Joselito Linder - Last Filed: 03/27/17 07:36> - General Chief Complaint: Nausea/Vomiting Stated Complaint: VOMITING Time Seen by Provider: 03/26/17 14:30 Past History <Ashli Light - Last Filed: 03/26/17 18:12> - Past Medical History Anemia: Yes Asthma: Yes Cardiac Disorders: Yes (Mitral Valve Prolapse) COPD: Yes Psychiatric Problems: Yes (anxiety) Suicide Attempt (Hx): No - Surgical History Abdominal Surgery: Yes (HERNIA REPAIR FOR RUPTURED HERNIA) Appendectomy: Yes Orthopedic Surgery: (FAITH KNEE REPLACEMENT) - Reproductive History Cervical CA: No Dysfunctional Uterine Bleeding: No Ectopic : No Endometrial CA: No Polycystic Ovaries: No Tubal Ligation: No - Immunization History Td Vaccination: Yes Immunization Up to Date: Yes - Psycho/Social/Smoking Cessation Hx Anxiety: No Suicidal Ideation: No Smoking Status: Yes Smoking History: Former smoker Years of Tobacco Use: 20 Have you smoked in the past 12 months: No Number of Cigarettes Smoked Daily: 2 If you are a former smoker, when did you quit?: may 2013 Cigars Per Day: 0 'Breaking Loose' booklet given: 06/17/13 Hx Alcohol Use: No Drug/Substance Use Hx: No Substance Use Type: None Hx Substance Use Treatment: No <Joselito Linder - Last Filed: 03/27/17 07:36> - Past Medical History Allergies/Adverse Reactions: Allergies Allergy/AdvReac Type Severity Reaction Status Date / Time No Known Allergies Allergy Verified 07/10/16 15:36 Home Medications: Ambulatory Orders Escitalopram Oxalate [Lexapro -] 20 mg PO DAILY #0 tablet 07/11/13 Pantoprazole Sodium [Protonix -] 40 mg PO DAILY #0 tablet.ec 07/11/13 Lorazepam [Ativan] 1 mg PO TID PRN 10/28/13 Oxycodone HCl/Acetaminophen [Percocet 10-325 mg Tablet] 1 - 2 tab PO Q4H PRN 12/08 Zolpidem Tartrate [Ambien] 10 mg PO HS PRN 10/28/13 Hydrocortisone [Cortef -] 10 mg PO DAILY 01/09/17 Metoprolol Succinate [Toprol XL -] 25 mg PO BID 01/09/17 Sulfamethoxazole/Trimethoprim [Bactrim Ds -] 1 tab PO DAILY 03/26/17 Review of Systems - Review of Systems Able to Perform ROS?: Yes Comments:: 03/26/17 14:41 history limited due to her clinical condition Constitutional - no reported Fever, Chills, HEENT: no reported vision changes, sore throat Respiratory: no reported cough, sob, hemoptysis Cardiac: no reported chest pain, palpitations, light headedness, leg swelling Abd/GI: +abd pain, nausea, vomiting, no reported blood per rectum, melena, diarrhea : no reported dysuria, frequency, discharge Musculskelatal - no reported back pain, joint swelling skin - no reported bruising, erythema, rash neurological: no reported headache, numbness, focal weakness, tingling, ataxia, hematologic: no reported anemia, easy bruising, easy bleeding <Joselito Linder - Last Filed: 03/27/17 07:36> *Physical Exam - Vital Signs Last Vital Signs Temp Pulse Resp BP Pulse Ox 100.4 F H 110 H 25 H 103/79 99 03/26/17 14:50 03/26/17 15:41 03/26/17 15:41 03/26/17 15:41 03/26/17 15:41 <Ashli Light - Last Filed: 03/26/17 18:12> - Physical Exam Comments: 03/26/17 14:42 GENERAL: The patient is awake, alert, and fully oriented, generally weak HEAD: Normocephalic, atraumatic. EYES: extraocular movements intact, sclera anicteric, conjunctiva clear. ENT: Normal voice, dry mucous membranes. NECK: Normal range of motion, supple LUNGS: Breath sounds equal, clear to auscultation bilaterally. No wheezes, no rhonchi, no rales. HEART: tachycardic ABDOMEN: Soft, mild epigastric tenderness, normoactive bowel sounds. No guarding, no rebound. . No CVA tenderness EXTREMITIES: Normal range of motion, no edema. No clubbing or cyanosis. No cords, erythema, or tenderness. NEUROLOGICAL: No facial assymetry, Normal speech, PSYCH: Normal mood, normal affect. SKIN: hot to touch, Dry, increased skin turgor, 03/26/17 15:00 rectal: soliman color stool, no blood/melena noted, guaaic pending <KailashJoselito - Last Filed: 03/27/17 07:36> Heart Score/ECG Review - ECG Impressions Comment:: 03/26/17 14:42 Twelve-lead EKG was performed and reviewed by me. Sinus rhythm Rate of 118 [place] is normal Nonspecific ST wave changes imp: Sinus tachycardia <KailashStevenJoselito - Last Filed: 03/27/17 07:36> ED Treatment Course - LABORATORY CBC & Chemistry Diagram: 03/26/17 14:40 03/26/17 14:40 - ADDITIONAL ORDERS Additional order review: Laboratory Results 03/26/17 03/26/17 03/26/17 14:50 14:50 14:50 INR PTT (Actin FS) VBG pH 7.48 H POC VBG pCO2 22.7 L POC VBG pO2 60.3 H Mixed VBG HCO3 16.7 L Sodium Potassium Chloride Carbon Dioxide Anion Gap BUN Creatinine Creat Clearance w eGFR Random Glucose Lactic Acid 1.9 Calcium Total Bilirubin AST ALT Alkaline Phosphatase Creatine Kinase Troponin I Total Protein Albumin Lipase Urine Color Yellow Urine Appearance Clear Urine pH 5.0 Urine Protein Negative Urine Glucose (UA) Negative Urine Ketones Negative Urine Blood Negative Urine Nitrite Negative Urine Bilirubin Negative Urine Urobilinogen Negative Ur Leukocyte Esterase Negative Stool Occult Blood Negative Blood Type Antibody Screen 03/26/17 03/26/17 03/26/17 14:50 14:49 14:40 INR 1.04 PTT (Actin FS) 23.4 L VBG pH POC VBG pCO2 POC VBG pO2 Mixed VBG HCO3 Sodium Potassium Chloride Carbon Dioxide Anion Gap BUN Creatinine Creat Clearance w eGFR Random Glucose Lactic Acid Calcium Total Bilirubin AST ALT Alkaline Phosphatase Creatine Kinase Troponin I Total Protein Albumin Lipase Urine Color Urine Appearance Urine pH Urine Protein Urine Glucose (UA) Urine Ketones Urine Blood Urine Nitrite Urine Bilirubin Urine Urobilinogen Ur Leukocyte Esterase Stool Occult Blood Blood Type O POSITIVE Antibody Screen Negative 03/26/17 03/26/17 14:40 14:40 INR PTT (Actin FS) VBG pH POC VBG pCO2 POC VBG pO2 Mixed VBG HCO3 Sodium 133 L Potassium 3.8 Chloride 101 Carbon Dioxide 20 L Anion Gap 12 BUN 58 H D Creatinine 1.0 Creat Clearance w eGFR 55.14 Random Glucose 116 H D Lactic Acid Calcium 8.7 Total Bilirubin 0.6 D AST 39 H D ALT 27 D Alkaline Phosphatase 88 Creatine Kinase 56 Troponin I 0.02 Total Protein 6.1 L Albumin 2.8 L Lipase 123 Urine Color Urine Appearance Urine pH Urine Protein Urine Glucose (UA) Urine Ketones Urine Blood Urine Nitrite Urine Bilirubin Urine Urobilinogen Ur Leukocyte Esterase Stool Occult Blood Blood Type Antibody Screen 03/26/17 14:40 RBC 4.71 MCV 83.7 MCHC 32.7 RDW 16.2 H MPV 7.5 Neutrophils % 71.8 Lymphocytes % 17.6 Monocytes % 10.0 Eosinophils % 0.2 D Basophils % 0.4 - Medications Given in the ED: ED Medications Discontinued Medications Generic Name Dose Route Start Last Admin Trade Name Robelq PRN Reason Stop Dose Admin Acetaminophen 1,000 mg 03/26/17 14:44 03/26/17 15:00 Ofirmev Injection - IVPB 03/26/17 14:45 1,000 mg ONCE ONE Administration Sodium Chloride 1,000 mls @ 1,000 mls/hr 03/26/17 14:36 03/26/17 14:59 Normal Saline - IV 03/26/17 15:35 1,000 mls/hr .Q1H ONE Administration Famotidine/Sodium Chloride 20 50 mls @ 100 mls/hr 03/26/17 14:38 03/26/17 15:55 mg/ Miscellaneous IVPB 03/26/17 15:07 100 mls/hr ONCE ONE Administration <Ashli Light - Last Filed: 03/26/17 18:12> - LABORATORY CBC & Chemistry Diagram: 03/26/17 21:45 03/26/17 18:23 <Joselito Linder - Last Filed: 03/27/17 07:36> Medical Decision Making - Medical Decision Making 03/26/17 17:27 Dr. Kaci alvarez paged via phone answering service. 03/26/17 17:29 Dr. Alvarez responded to the paged and the patient's case was discussed. 03/26/17 18:09 Dr. Burk was paged via phone answering service. 03/26/17 18:12 Dr. Burk responded to the paged and the patients case was discussed. <Ashli Light - Last Filed: 03/26/17 18:12> - Medical Decision Making 03/26/17 14:43 vomiting, potentially UGIB secondary to NSAID use vs gastroenteritis vs pancreatitis pt apperas dry, tachycardic, borderline hypotensive will fluid resusitate awaint stool guaic pt noted febrile here 03/26/17 17:22 pts labs reviewed mild leukocytosis no anemia BUN elevated relativ to cr - possible GIB vs prerenal azotemia stool guaiac negative here pts HR improved to 94s bp also improved will obtiain CT abd as pt still complianing of some abdominal pain however her abdomen is soft nontender will notify dr. Kaci alvarez to see if she has a history of GIB/ulcers. will likely need admission for furthe rhydration 03/26/17 17:33 03/26/17 17:[address] kaci alvarez (PMD) complicated history - recent admission for MRSA infection of joint was on a picc line with Vancomycin. Pt also has a large hiatal hernia that was pending surgery that was put off due to her MRSA infection. Pt also has hx of adrenal insufficinecy and is on chronic steroids. Had workup by dr. burk, s/p endoscopy w/o ulcer. Possible sources of infection include her joint, CDiff due to recent abx requests admission under hospitalist service 03/26/17 18:07 pt had episode of vomiting here that was black apperaing will start protonix gtt hr/vitals stable will notify dr. burk 03/26/17 18:08 case dw DIRECTOR OF [employer]BI[employer]ING felix Byrne with admission to [facility] for GIB workup admit under dr. Bruce service Case discussed in detail with admitting physician including history, physical exam and ancillary studies. Admitting physician has assumed care for the patient, will follow all pending diagnostics and will complete the evaluation and treatment. CRITICAL CARE DOCUMENTATION: I spent ~45 minutes of Critical Care time, excluding separately billable procedures, involving high complexity decision making to assess, manipulate and support vital system function(s) to treat single or multiple vital organ system failure and/or to prevent further life threatening deterioration of the patient' s condition. 03/26/17 18:13 dr burk notified of case. <Joselito Linder - Last Filed: 03/27/17 07:36> *DC/Admit/Observation/Transfer <Ashli Light - Last Filed: 03/26/17 18:12> - Discharge Dispostion Admit: Yes <Joselito Linder - Last Filed: 03/27/17 07:36> Diagnosis at time of Disposition: Sepsis Qualifiers: Sepsis type: sepsis due to unspecified organism Qualified Code(s): A41.9 - Sepsis, unspecified organism GIB (gastrointestinal bleeding) Qualifiers: GI bleed type/associated pathology: unspecified gastrointestinal hemorrhage type Qualified Code(s): K92.2 - Gastrointestinal hemorrhage, unspecified
[2017-03-26] MEDS ORDERED: SODIUM CHLORIDE 1,000 ML IV ONE (14:36)
[2017-03-26] MEDS ORDERED: FAMOTIDINE 20 MG/50 ML IVPB 20 MG in PREMIX 50 IVPB ONE (14:38)
[2017-03-26] MEDS ORDERED: ACETAMINOPHEN 1000 MG/100 ML VIAL (NON FORMULARY) IVPB ONE (14:44)
[2017-03-26 14:50] VITALS: BMI 25.0
[2017-03-26] MEDS ORDERED: ACETAMINOPHEN INJECTION 100 ML IVPB ONE (14:52)
[2017-03-26 14:55] LABS: VENOUS BLOOD GAS HCO3 16.7 meq/L (19-25); VENOUS PH 7.48 (7.32-7.42)
[2017-03-26 14:58] LABS: BASOPHIL 0.4 % (0-2.0); EOSINOPHIL 0.2 % (0-4.5); MCH 27.3 pg (25.7-33.7); MCHC 32.7 g/dl (32.0-36.0); MEAN CELL VOLUME 83.7 fl (80-96); MEAN PLT VOLUME 7.5 fl (7.5-11.1); NEUTROPHILS 71.8 % (42.8-82.8); PLATELET COUNT 356 K/MM3 (134-434); RDW 16.2 % (11.6-15.6); WHITE BLOOD COUNT 12.8 K/mm3 (4.0-10.0)
[2017-03-26 15:18] LABS: STOOL FOR OCCULT BLOOD NEGATIVE (NEGATIVE)
[2017-03-26 15:19] LABS: ALBUMIN 2.8 g/dl (3.4-5.0); ANION GAP 12 (8-16); BILIRUBIN,TOTAL 0.6 mg/dL (0.2-1.0); CALCIUM 8.7 mg/dL (8.5-10.1); CO2 20 mmol/L (21-32); GLUCOSE,RANDOM 116 mg/dL (74-106); SGPT/ALT 27 U/L (12-78); TOT PROT 6.1 g/dl (6.4-8.2)
[2017-03-26 15:21] LABS: ALK PHOS 88 U/L (45-117); TROPONIN I 0.02 ng/ml (0.00-0.05)
[2017-03-26 15:23] LABS: CPK 56 IU/L (26-192); SGOT/AST 39 U/L (15-37)
[2017-03-26 15:35] LABS: URINE APPEARANCE CLEAR; URINE BILIRUBIN NEGATIVE (NEGATIVE); URINE BLOOD NEGATIVE (NEGATIVE); URINE COLOR YELLOW; URINE GLUCOSE (UA) NEGATIVE (NEGATIVE); URINE KETONE NEGATIVE (NEGATIVE); URINE LEUK ESTERASE NEGATIVE (NEGATIVE); URINE NITRITE NEGATIVE (NEGATIVE); URINE PROTEIN NEGATIVE (NEGATIVE); URINE UROBILINOGEN NEGATIVE mg/dL (0.2-1.0)
[2017-03-26] MEDS ORDERED: FAMOTIDINE 20 MG/50 ML IVPB 50 ML IVPB ONE (15:50)
[2017-03-26 16:06] LABS: INR 1.04 (0.82-1.09); PROTHROMBIN TIME (PATIENT) 11.5 SEC (9.98-11.88)
[2017-03-26] MEDS ORDERED: PANTOPRAZOLE SODIUM 80 MG in SODIUM CHLORIDE 100 ML IVPB ONE (17:28)
[2017-03-26] MEDS ORDERED: PANTOPRAZOLE SODIUM 80 MG in SODIUM CHLORIDE 100 ML IVPB SCH (17:30)
[2017-03-26] MEDS ORDERED: METRONIDAZOLE 500 MG PREMIXED 100 ML IVPB ONE ×2 (17:32→17:40)
[2017-03-26] MEDS ORDERED: PANTOPRAZOLE SODIUM 40 MG VIAL ONE (17:40)
--- NOTE | 2017-03-26 17:42 | EKG ---
Test Reason : Blood Pressure : / mmHG Vent. Rate : 118 BPM Atrial Rate : 118 BPM P-R Int : 128 ms QRS Dur : 076 ms QT Int : 316 ms P-R-T Axes : 052 037 -01 degrees QTc Int : 442 ms SINUS TACHYCARDIA OTHERWISE NORMAL ECG WHEN COMPARED WITH ECG OF 10-JAN-2017 00:29, VENT. RATE HAS INCREASED BY 55 BPM Confirmed by BRISEIDA EISENBERG MD ([id number]) on 03/26/2017 5:42:27 PM Referred By: Confirmed By:BRISEIDA EISENBERG MD
[2017-03-26] MEDS ORDERED: LEVOFLOXACIN 750 MG IVPB 150 ML IVPB ONE ×2 (17:49→20:13)
[2017-03-26] MEDS: PANTOPRAZOLE SODIUM 80 MG in SODIUM CHLORIDE 100 ML IVPB SCH (18:15)
[2017-03-26] MEDS ORDERED: SODIUM CHLORIDE 1,000 ML IV SCH (18:15)
[2017-03-26] MEDS ORDERED: ONDANSETRON 4 MG/2 ML VIAL IVPB PRN (18:19)
[2017-03-26 18:30] LABS: BASOPHIL 0.6 % (0-2.0); EOSINOPHIL 0.6 % (0-4.5); MCH 26.8 pg (25.7-33.7); MCHC 32.3 g/dl (32.0-36.0); MEAN PLT VOLUME 7.9 fl (7.5-11.1); PLATELET COUNT 314 K/MM3 (134-434); RDW 16.4 % (11.6-15.6); WHITE BLOOD COUNT 11.7 K/mm3 (4.0-10.0)
[2017-03-26] MEDS ORDERED: ALBUTEROL SO4 2.5/IPRATROPIUM 0.5 INH SOL 3 ML VIAL.NEB. NEB PRN (18:30)
--- NOTE | 2017-03-26 18:39 | HP ---
CHIEF COMPLAINT: Nausea, vomiting, dark bowel movements PCP: Kaci Alvarez HISTORY OF PRESENT ILLNESS: This is a 67 year old female with PMHx of multiple b/l knee replacements, MRSA septic arthritis and osteomyelitis (2012), HTN, anxiety, COPD, HCV, hiatal hernia, GI bleeds, gastric ulcers, adrenal insufficiency, who presented to the ED with persistent vomiting x3 days. The patient states the vomitus is black, coffee ground colored. She denies any diarrhea but states that her stool is black as well. She reports taking motrin for pain, but does not report taking it recently. The patient does not want to talk further, however, she does deny chest pain, shortness of breath, fever, chills. ER course was notable for: (1) WBC 12.8, Hgb 12.9 (2) BUN 58 (3) Stool for occult blood negative (4) Chest X-ray with cardiomegaly and large hiatal hernia. No acute intrathoracic abnormality seen Recent Travel: no PAST MEDICAL HISTORY: as above Social History: Smoking: denies Alcohol: denies Drugs: denies Allergies No Known Allergies Allergy (Verified 07/10/16 15:36) HOME MEDICATIONS: Home Medications Medication Instructions Recorded Escitalopram Oxalate [Lexapro -] 20 mg PO DAILY #0 tablet 07/11/13 Pantoprazole Sodium [Protonix -] 40 mg PO DAILY #0 tablet.ec 07/11/13 Lorazepam [Ativan] 1 mg PO TID PRN 10/28/13 Oxycodone HCl/Acetaminophen 1 - 2 tab PO Q4H PRN 10/28/13 [Percocet 10-325 mg Tablet] Zolpidem Tartrate [Ambien] 10 mg PO HS PRN 10/28/13 Hydrocortisone [Cortef -] 10 mg PO DAILY 01/09/17 Metoprolol Succinate [Toprol XL -] 25 mg PO BID 01/09/17 Sulfamethoxazole/Trimethoprim 1 tab PO DAILY 03/26/17 [Bactrim Ds -] REVIEW OF SYSTEMS CONSTITUTIONAL: Absent: fever, chills, diaphoresis, generalized weakness, malaise, loss of appetite, weight change HEENT: Absent: rhinorrhea, nasal congestion, throat pain, throat swelling, difficulty swallowing, mouth swelling, ear pain, eye pain, visual changes CARDIOVASCULAR: Absent: chest pain, syncope, palpitations, irregular heart rate , lightheadedness, peripheral edema RESPIRATORY: Absent: cough, shortness of breath, dyspnea with exertion, orthopnea, wheezing, stridor, hemoptysis GASTROINTESTINAL: Nausea, vomiting x3 days. Vomitus appears black, coffee ground. Reports stool to be dark. Absent: abdominal distension, diarrhea, constipation GENITOURINARY: Absent: dysuria, frequency, urgency, hesitancy, hematuria, flank pain, genital pain MUSCULOSKELETAL: Absent: myalgia, arthralgia, joint swelling, back pain, neck pain SKIN: Absent: rash, itching, pallor ENDOCRINE:Absent: unexplained weight gain, unexplained weight loss, heat intolerance, cold intolerance NEUROLOGIC: Absent: headache, focal weakness or paresthesias, dizziness, unsteady gait, seizure, mental status changes, bladder or bowel incontinence PSYCHIATRIC: Absent: depression, suicidal or homicidal ideation, hallucinations. PHYSICAL EXAMINATION Vital Signs - 24 hr 03/26/17 03/26/17 03/26/17 14:48 14:50 15:41 Temperature 100.4 F H 100.4 F H Pulse Rate 120 H Pulse Rate [ 110 H Apical] Respiratory 20 25 H Rate Blood Pressure 99/72 Blood Pressure 103/79 [Right Arm] O2 Sat by Pulse 91 L 99 Oximetry (%) GENERAL: Awake, alert, and fully oriented. HEAD: Normal with no signs of trauma. EYES: Pupils equal, round and reactive to light, extraocular movements intact, sclera anicteric, conjunctiva clear. No lid lag. EARS, NOSE, THROAT: Ears normal NECK: Normal range of motion, supple without lymphadenopathy, or masses. LUNGS: Breath sounds equal, clear to auscultation bilaterally. No wheezes, and no crackles. No accessory muscle use. HEART: Regular rate and rhythm, normal S1 and S2 without murmur, rub or gallop. ABDOMEN: Soft, nontender, not distended, normoactive bowel sounds, no guarding, no rebound, no masses. MUSCULOSKELETAL: Normal range of motion at all joints. No bony deformities or tenderness. No CVA tenderness. UPPER EXTREMITIES: 2+ pulses, warm, well-perfused. No cyanosis. No clubbing. No peripheral edema. LOWER EXTREMITIES: 2+ pulses, warm, well-perfused. No calf tenderness. No peripheral edema. NEUROLOGICAL: Cranial nerves II-XII intact. Normal speech. PSYCHIATRIC: Cooperative. Good eye contact. SKIN: Warm, dry, normal turgor, no rashes or lesions noted, normal capillary refill. CBCD WBC 12.8 K/mm3 (4.0-10.0) H D 03/26/17 14:40 RBC 4.71 M/mm3 (3.60-5.2) 03/26/17 14:40 Hgb 12.9 GM/dL (10.7-15.3) D 03/26/17 14:40 Hct 39.4 % (32.4-45.2) 03/26/17 14:40 MCV 83.7 fl (80-96) 03/26/17 14:40 MCHC 32.7 g/dl (32.0-36.0) 03/26/17 14:40 RDW 16.2 % (11.6-15.6) H 03/26/17 14:40 Plt Count 356 K/MM3 (134-434) D 03/26/17 14:40 MPV 7.5 fl (7.5-11.1) 03/26/17 14:40 CMP Sodium 133 mmol/L (136-145) L 03/26/17 14:40 Potassium 3.8 mmol/L (3.5-5.1) 03/26/17 14:40 Chloride 101 mmol/L (98-107) 03/26/17 14:40 Carbon Dioxide 20 mmol/L (21-32) L 03/26/17 14:40 Anion Gap 12 (8-16) 03/26/17 14:40 BUN 58 mg/dL (7-18) H D 03/26/17 14:40 Creatinine 1.0 mg/dL (0.55-1.02) 03/26/17 14:40 Creat Clearance w eGFR 55.14 (>60) 03/26/17 14:40 Random Glucose 116 mg/dL (74-106) H D 03/26/17 14:40 Calcium 8.7 mg/dL (8.5-10.1) 03/26/17 14:40 Total Bilirubin 0.6 mg/dL (0.2-1.0) D 03/26/17 14:40 AST 39 U/L (15-37) H D 03/26/17 14:40 ALT 27 U/L (12-78) D 03/26/17 14:40 Alkaline Phosphatase 88 U/L (45-117) 03/26/17 14:40 Total Protein 6.1 g/dl (6.4-8.2) L 03/26/17 14:40 Albumin 2.8 g/dl (3.4-5.0) L 03/26/17 14:40 CARDIAC ENZYMES Creatine Kinase 56 IU/L (26-192) 03/26/17 14:40 Troponin I 0.02 ng/ml (0.00-0.05) 03/26/17 14:40 Assessment: This is a 67 year old female with PMHx of multiple b/l knee replacements, MRSA septic arthritis and osteomyelitis (2012), HTN, anxiety, COPD , HCV, hiatal hernia, GI bleeds, gastric ulcers, adrenal insufficiency, who presented to the ED with persistent vomiting x3 days. Plan: 1) GI: Possible upper GI bleed - Cardiac monitoring - Black, coffee ground vomitus - Send for gastric occult blood - Start on Protonix gtt - IV fluids - Zofran prn vomiting - NPO - Will place NGT if patient continues to vomit - Monitor cbc (H/H) closely - F/u GI consult 2) ID: Sepsis 2/2 GI source - Colitis, vs. gastroenteritis vs. c.diff - Tachycardia (EKG sinus tach) - F/u urine culture (UA negative) - F/u blood cultures - F/u stool cultures (not having diarrhea, c.diff may not be warranted if stool does not conform to specimen cup) - Continue IV fluids - Continue Levaquin - Continue Flagyl - F/u CTAP to evaluate for colitis 3) Pulmonary: COPD - Stable, no active issues - Duonebs prn 4) Adrenal insufficiency: - Continue Cortef 5) Anxiety: - Ativan 0.5mg IVPB prn 6) F/E/N: - Hyponatremia: 2/2 vomiting? continue to monitor - Monitor electrolytes - NPO for possible GI bleed - Dehydration, elevated BUN, IV fluids 7) Prophylaxis: - SCDs bilaterally - Hold all chemical dvt prophylaxis 2/2 possible GI bleed 8) Dispo: - Requires continued inpatient care CODE STATUS: FULL CODE Visit type - Emergency Visit Emergency Visit: Yes Care time: The patient presented to the Emergency Department on the above date and was hospitalized for further evaluation of their emergent condition. - New Patient This patient is new to me today: Yes Date on this admission: 03/26/17 - Critical Care Critical Care patient: No
[2017-03-26 19:24] LABS: ANION GAP 11 (8-16); CALCIUM 8.2 mg/dL (8.5-10.1); CO2 21 mmol/L (21-32); GLUCOSE,RANDOM 101 mg/dL (74-106)
[2017-03-26 22:05] LABS: MCH 27.1 pg (25.7-33.7); MCHC 32.6 g/dl (32.0-36.0); MEAN CELL VOLUME 82.9 fl (80-96); MEAN PLT VOLUME 7.3 fl (7.5-11.1); PLATELET COUNT 293 K/MM3 (134-434); RDW 16.8 % (11.6-15.6)
[2017-03-27] MEDS ORDERED: METRONIDAZOLE 500 MG PREMIXED 100 ML IVPB SCH (02:00)
[2017-03-27] MEDS: PANTOPRAZOLE SODIUM 80 MG in SODIUM CHLORIDE 100 ML IVPB SCH (05:00)
[2017-03-27] MEDS ORDERED: KCL 10 MEQ IVPB 100 ML IVPB SCH (08:00)
[2017-03-27 08:34] LABS: BASOPHIL 0.4 % (0-2.0); EOSINOPHIL 0.4 % (0-4.5); MCH 27.6 pg (25.7-33.7); MCHC 33.3 g/dl (32.0-36.0); MEAN CELL VOLUME 82.8 fl (80-96); NEUTROPHILS 74.8 % (42.8-82.8); PLATELET COUNT 276 K/MM3 (134-434); RDW 16.2 % (11.6-15.6); WHITE BLOOD COUNT 8.7 K/mm3 (4.0-10.0)
[2017-03-27 09:14] LABS: ALBUMIN 2.6 g/dl (3.4-5.0); ALK PHOS 74 U/L (45-117); ANION GAP 11 (8-16); BILIRUBIN,TOTAL 0.6 mg/dL (0.2-1.0); CALCIUM 8.2 mg/dL (8.5-10.1); CO2 20 mmol/L (21-32); CREATININE 0.8 mg/dL (0.55-1.02); GLUCOSE,RANDOM 114 mg/dL (74-106); SGOT/AST 24 U/L (15-37); SGPT/ALT 23 U/L (12-78); TOT PROT 5.2 g/dl (6.4-8.2)
[2017-03-27] MEDS ORDERED: SODIUM CHLORIDE 1,000 ML IV STA (09:16)
--- NOTE | 2017-03-27 09:26 | CON.GI ---
Consult Consult Specialty:: GI Referred by:: Hospitalist Reason for Consultation:: Coffee Ground Emesis - History of Present Illness Chief Complaint: I was vomiting for 3 days History of Present Illness: 67 y/o female admitted through [facility] ER for evaluation of vomiting. She has been having multiple vomiting episodes along with upper abdominal discomfort for 3 days. The vomitus was described by Ms. Lorenz as brown. She denies associated rectal bleeding / change in bowel habits, diarrhea or melena. She has a known large paraesophageal hernia that contains most of her stomach as well as colon loops and was supposed to have it repaired given previous symptomatic episodes. She last saw Dr. Marte 09/12 when this was discussed, however, she never underwent the procedure due to "MRSA in her knee". In review of [facility] it also reveals as though she had a laparotomy with repair of gastric ulcer perforation and placement of an open gastrostomy tube that was subsequently removed. A cirrhotic appearing liver was also noted. Intraoperative biopsies of the gastric ulcer revealed focal intestinal metaplasia, gastritis. H. pylori was negative. She had an upper GI series after that time revealing the large hernia. It also appears as though her last colonoscopy was in [address] Peña as well as an EGD revealing a lower esophageal ulcer, thick folds in the cardia, antral gastritis. This was performed at [facility] and pathology was currently unavailable for review. Current triage vitals revealed Temp 100.4 / P: 120 BP: 99/72. Her last vomiting episode was last night and she currently denies any abdominal pain. She complained of fevers and chills and denies any NSAID use. - History Source History Provided By: Patient, Medical Record Limitations to Obtaining History: No Limitations - Past Medical History [employer]ER[employer]: Yes: Other (anxiety) Cardio/Vascular: Yes: HTN Pulmonary: Yes: COPD Gastrointestinal: Yes: Hiatal Hernia (Large paraesophageal hernia), Peptic Ulcer Disease Hepatobiliary: Yes: Hepatitis C ...: No Infectious Disease: Yes: MRSA, Other ( ? osteomyelitis) - Past Surgical History Past Surgical History: Yes: Hysterectomy, Joint Replacement (Ttl Knee replacement x 2 right knee with 2 right knee revisions, Ttl Left knee replacement. MRSA infection) Additional Surgical History: Broken femur with post placement (right leg), left brokwn hand and wrist with pin placement and removel - Alcohol/Substance Use Hx Alcohol Use: No History of Substance Use: denies: Cocaine - Smoking History Smoking history: Former smoker Have you smoked in the past 12 months: No Aproximately how many cigarettes per day: 2 If you are a former smoker, when did you quit?: may 2013 - Social History ADL: Independent History of Recent Travel: No Home Medications - Allergies Allergies/Adverse Reactions: Allergies Allergy/AdvReac Type Severity Reaction Status Date / Time No Known Allergies Allergy Verified 07/10/16 15:36 - Home Medications Home Medications: Ambulatory Orders Escitalopram Oxalate [Lexapro -] 20 mg PO DAILY #0 tablet 07/11/13 Pantoprazole Sodium [Protonix -] 40 mg PO DAILY #0 tablet.ec 07/11/13 Lorazepam [Ativan] 1 mg PO TID PRN 10/28/13 Oxycodone HCl/Acetaminophen [Percocet 10-325 mg Tablet] 1 - 2 tab PO Q4H PRN 12/08 Zolpidem Tartrate [Ambien] 10 mg PO HS PRN 10/28/13 Hydrocortisone [Cortef -] 10 mg PO DAILY 01/09/17 Metoprolol Succinate [Toprol XL -] 25 mg PO BID 01/09/17 Sulfamethoxazole/Trimethoprim [Bactrim Ds -] 1 tab PO DAILY 03/26/17 Family Disease History - Family Disease History Other Family History: Non-contribuatory Review of Systems - Review of Systems Constitutional: reports: Chills, Fever Cardiovascular: denies: Chest Pain Respiratory: denies: SOB Physical Exam-GI Vital Signs: Vital Signs Temperature 99.5 03/27/17 06:00 Pulse Rate 106H 03/27/17 06:00 Respiratory Rate 18 03/27/17 06:00 Blood Pressure 93/62 03/27/17 06:00 O2 Sat by Pulse Oximetry (%) 96 03/26/17 21:00 Constitutional: Yes: Calm Eyes: No: Sclera Icterus Cardiovascular: Yes: Regular Rate and Rhythm, Murmur (+ systolic murmur) Respiratory: Yes: CTA Bilaterally Gastrointestinal Inspection: Yes: Scars (Midline vertical upper abdominal surgical scar) ...Auscultate: Yes: Normoactive Bowel Sounds ...Palpate: No: Guarding, Tenderness ...Percussion: No: Tympanitic ...Rectal Exam: Yes: Other (No external lesions, light brown guaiac negative stool) Edema: No Labs: CBC, BMP 03/27/17 08:26 03/27/17 08:26 INR, PTT INR 1.04 (0.82-1.09) 03/26/17 14:49 Imaging - Results Cat Scan: Report Reviewed (reviewed w/ Dr. Manning. ? organoaxial gastric volvulus, distended bladder), Image Reviewed Problem List - Problems (1) Paraesophageal hernia Assessment/Plan: Suspect Ms. Lorenz's vomiting may be from symptomatic hernia. Given low grade temps I question if a systemic infectious process could be contributing as well. I do not think she is having a primary upper GI bleed event and question the utility of guaiac of the gastric content. There has been no aisha hematemesis / melena or hematochezia reported Advise: NPO IV hydration as she appears clinically to be volume depleted Surgical consultation If vomiting persists placement of decompressive NGT Fever w/u if spikes. Temp on my exam 99.5 Code(s): K44.9 - DIAPHRAGMATIC HERNIA WITHOUT OBSTRUCTION OR GANGRENE
--- NOTE | 2017-03-27 09:38 | PN ---
Progress Note (short form) - Note Progress Note: Subjective: The patient was seen and examined at the bedside she reports feeling weak today. She states her last vomitus episode was yesterday evening. She states she is thirsty Current Medications Generic Name Dose Route Start Last Admin Trade Name Freq PRN Reason Stop Dose Admin Albuterol/Ipratropium 1 amp 03/26/17 18:30 Duoneb - NEB QIDR PRN SHORT OF BREATH/WHEEZING Hydrocortisone 10 mg 03/27/17 10:00 03/27/17 09:43 Cortef - PO Not Given DAILY ALFREDA Pantoprazole Sodium 80 mg/ 100 mls @ 10 mls/hr 03/26/17 18:15 03/27/17 05:00 Sodium Chloride IVPB 10 mls/hr Q10H ALFREDA Administration 8 MG/HR Sodium Chloride 1,000 mls @ 100 mls/hr 03/26/17 18:15 03/26/17 22:16 Normal Saline - IV 100 mls/hr ASDIR ALFREDA Administration Sodium Chloride 1,000 mls @ 500 mls/hr 03/27/17 09:16 03/27/17 09:44 Normal Saline - IV 03/27/17 11:15 500 mls/hr ASDIR STA Administration Potassium Chloride 100 mls @ 100 mls/hr 03/27/17 10:00 03/27/17 09:43 Potassium Chloride 10 Meq Premix Ivpb - IVPB 03/27/17 11:59 100 mls/hr Q60M ALFREDA Administration Lorazepam 0.5 mg 03/26/17 18:31 Ativan Injection - IVPB Q8H PRN ANXIETY Ondansetron HCl 4 mg 03/26/17 18:19 Zofran Injection IVPB Q6H PRN NAUSEA AND/OR VOMITING Objective: Vital Signs Period Temp Pulse Resp BP Sys/Xiao Pulse Ox Last 24 Hr 97.4 F-100.4 F 82-120 18-25 93-113/61-80 91-99 Physical Exam: Patient refusing at this time CBCD WBC 8.7 K/mm3 (4.0-10.0) 03/27/17 08:26 RBC 3.98 M/mm3 (3.60-5.2) 03/27/17 08:26 Hgb 11.0 GM/dL (10.7-15.3) 03/27/17 08:26 Hct 33.0 % (32.4-45.2) 03/27/17 08:26 MCV 82.8 fl (80-96) 03/27/17 08:26 MCHC 33.3 g/dl (32.0-36.0) 03/27/17 08:26 RDW 16.2 % (11.6-15.6) H 03/27/17 08:26 Plt Count 276 K/MM3 (134-434) 03/27/17 08:26 MPV 7.0 fl (7.5-11.1) L 03/27/17 08:26 CMP Sodium 138 mmol/L (136-145) 03/27/17 08:26 Potassium 3.2 mmol/L (3.5-5.1) L 03/27/17 08:26 Chloride 107 mmol/L (98-107) 03/27/17 08:26 Carbon Dioxide 20 mmol/L (21-32) L 03/27/17 08:26 Anion Gap 11 (8-16) 03/27/17 08:26 BUN 42 mg/dL (7-18) H D 03/27/17 08:26 Creatinine 0.8 mg/dL (0.55-1.02) 03/27/17 08:26 Creat Clearance w eGFR > 60 (>60) 03/27/17 08:26 Random Glucose 114 mg/dL (74-106) H 03/27/17 08:26 Calcium 8.2 mg/dL (8.5-10.1) L 03/27/17 08:26 Total Bilirubin 0.6 mg/dL (0.2-1.0) 03/27/17 08:26 AST 24 U/L (15-37) D 03/27/17 08:26 ALT 23 U/L (12-78) 03/27/17 08:26 Alkaline Phosphatase 74 U/L (45-117) 03/27/17 08:26 Total Protein 5.2 g/dl (6.4-8.2) L 03/27/17 08:26 Albumin 2.6 g/dl (3.4-5.0) L 03/27/17 08:26 CARDIAC ENZYMES Creatine Kinase 56 IU/L (26-192) 03/26/17 14:40 Troponin I 0.02 ng/ml (0.00-0.05) 03/26/17 14:40 Assessment: This is a 67 year old female with PMHx of multiple b/l knee replacements, MRSA septic arthritis and osteomyelitis (2012), HTN, anxiety, COPD , HCV, hiatal hernia, GI bleeds, gastric ulcers, adrenal insufficiency, who presented to the ED with persistent vomiting x3 days. Plan: 1) GI: Upper GI bleed - Cardiac monitoring - Black, coffee ground vomitus - Continue Protonix gtt - IV fluids - Zofran prn vomiting - NPO - Will place NGT if patient continues to vomit - Monitor cbc (H/H) closely - Appreciate GI consult Large hiatal hernia - F/u surgery consult 2) ID: febrile, tachycardia, leukocytosis - Source unknown - CTAP with no evidence of acute process, no colitis - Leukocytosis may be reactive 2/2 vomiting - Tachycardia 2/2 dehydration - Tachycardia (EKG sinus tach) - F/u urine culture (UA negative) - F/u blood cultures - F/u stool cultures (not having diarrhea, c.diff may not be warranted if stool does not conform to specimen cup) - Continue IV fluids - Will hold antibiotics for now and follow-up ID consult 3) : Acute urinary retention - Bladder scan with >700cc - Place chung catheter 4) Pulmonary: COPD - Stable, no active issues - Duonebs prn 5) Adrenal insufficiency: - Continue Cortef 6) Anxiety: - Ativan 0.5mg IVPB prn 7) F/E/N: - Hyponatremia: resolved - Monitor electrolytes - NPO - Dehydration, elevated BUN, IV fluids 8) Prophylaxis: - SCDs bilaterally - Hold all chemical dvt prophylaxis 2/2 possible GI bleed 9) Dispo: - Requires continued inpatient care CODE STATUS: FULL CODE Visit type - Emergency Visit Emergency Visit: Yes ED Registration Date: 03/26/17 Care time: The patient presented to the Emergency Department on the above date and was hospitalized for further evaluation of their emergent condition. - New Patient This patient is new to me today: No - Critical Care Critical Care patient: No
[2017-03-27] MEDS: HYDROCORTISONE 10 MG TABLET PO SCH ×2 (09:43→10:37)
[2017-03-27] MEDS: KCL 10 MEQ IVPB 100 ML IVPB SCH ×2 (09:43→10:35)
[2017-03-27] MEDS ORDERED: HYDROmorphone HCL CARPU-JECT 1 MG/1 ML DISP.SYRIN IVPB PRN (12:14)
[2017-03-27] MEDS ORDERED: SODIUM CHLORIDE 1,000 ML IV SCH ×2 (12:15→13:08)
[2017-03-27] MEDS ORDERED: ACETAMINOPHEN 1000 MG/100 ML VIAL (NON FORMULARY) IVPB SCH (12:15)
[2017-03-27] MEDS ORDERED: METOCLOPRAMIDE HCL INJECTION 10 MG/2 ML VIAL IVPB SCH (12:15)
[2017-03-27] MEDS ORDERED: ONDANSETRON 4 MG/2 ML VIAL IVPB SCH (12:15)
[2017-03-27] MEDS ORDERED: ACETAMINOPHEN 1000 MG/100 ML VIAL (NON FORMULARY) IVPB ONE ×2 (12:33→18:35)
--- NOTE | 2017-03-27 12:42 | PN ---
Progress Note (short form) - Note Progress Note: Spoke w/ Dr. Maurer. States that he saw patient and he raised concern of gastric ischemia as she complained of chest pain. Clinically she seemed improved from initial presentation as has WBC. She was tachy with elevated BUN and given that she has been vomiting over the last three days, suspect that she is volume depleted. He abdominal exam also benign. I asked if he wanted emergent endoscopy today as a preoperative measure. After discussion, attempt at decompression with NGT and transfer to ICU with medical optimization / resuscitation agreed upon. Possible EGD 03/28/17. ? need for stress dose steroids / endocrine consult given her h/o adrenal insufficiency as well. Discussed the above with Hospitalist Caty. Problem List - Problems (1) Paraesophageal hernia Code(s): K44.9 - DIAPHRAGMATIC HERNIA WITHOUT OBSTRUCTION OR GANGRENE
--- NOTE | 2017-03-27 13:19 | CONSULT ---
Consult - text type - Consultation Consultation Note: Thoracic Consultation: Called to evaluated 67F with PMH of septic arthritis, ELAP hernia/peptic ulcer repair, h/o PEG, h/o esophageal ulcer (?Jonathan leary), type 4 paraesophageal hernia who p/w N/V x 3 days. She has tachycardia and chest/abdominal pain. A CT shows a dilated intrathoracic and abdominal stomach without obvious passage of fluid into the small bowel. Her wbc and lactate are within normal limits. She was scheduled in the past for elective hernia repair but was canceled due to MRSA of her knee. Vitals significant for tachycardia Chest clear Abd: NT, large M/L scar Paraesophageal hernia with obstruction: --May need emergent surgery if does not improve. --Unclear where her obstruction is since intraabdominal stomach is dilated as well. --Recommend ICU transfer, strict I/O's with chung. --Recommend gentle placement of NGT to as far as easily passes. --If sx worsen, will need endoscopy to decompress, evaluate for ischemia. --Need to risk assess her cirrhosis as well. --No narcotics for pain as this can mask worsening disease. I have spent >1hour with >50% of time spent in counseling of this patient and coordination of care with Dr. Richard, Dr. Orta, and Dr. Posadas, including review of history, physical, and images.
--- NOTE | 2017-03-27 14:08 | PROC ---
Procedure Note Procedure: NGT insertion for large hiatal hernia. 16 fr NGT inserted into right nare without difficulty. 500ml green/dark material returned. NGT place to L[facility] and a cxr was ordered to confirm placement since the patient has a large hiatal hernia. The tube was secured at 60cm. Procedure tolerated well.
--- NOTE | 2017-03-27 14:36 | CONSULT ---
Consult Consult Specialty:: infectious diseases Reason for Consultation:: mrsa infection,abd pain - History of Present Illness Chief Complaint: abd pain,hematemesis,leukocytosis History of Present Illness: 67 year old female with PMHx of multiple b/l knee replacements, MRSA septic arthritis and osteomyelitis (2012), HTN, anxiety, COPD, HCV, hiatal hernia, GI bleeds, gastric ulcers, adrenal insufficiency, who presented to the ED with persistent vomiting x3 days. vomitus is black, coffee ground colored. She denies any diarrhea but states that her stool is black as well. She reports taking motrin for pain, but does not report taking it recently. patient daughter in the room and she mentions that patient has been on chronic bactrim for suppression for mrsa patient now with hematemsis patient has a history r of gastric ulcer perforation and placement of an open gastrostomy tube that was subsequently removed. 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 osteomyelitis) - Past Surgical History Past Surgical History: Yes: Hysterectomy, Joint Replacement (Ttl Knee replacement x 2 right knee with 2 right knee revisions, Ttl Left knee replacement. MRSA infection) Additional Surgical History: Broken femur with post placement (right leg), left brokwn hand and wrist with pin placement and removel - Alcohol/Substance Use Hx Alcohol Use: No History of Substance Use: denies: Cocaine - Smoking History Smoking history: Former smoker Have you smoked in the past 12 months: No Aproximately how many cigarettes per day: 2 If you are a former smoker, when did you quit?: may 2013 - Social History ADL: Independent History of Recent Travel: No Home Medications - Allergies Allergies/Adverse Reactions: Allergies Allergy/AdvReac Type Severity Reaction Status Date / Time No Known Allergies Allergy Verified 07/10/16 15:36 - Home Medications Home Medications: Ambulatory Orders Escitalopram Oxalate [Lexapro -] 20 mg PO DAILY #0 tablet 07/11/13 Pantoprazole Sodium [Protonix -] 40 mg PO DAILY #0 tablet.ec 07/11/13 Lorazepam [Ativan] 1 mg PO TID PRN 10/28/13 Oxycodone HCl/Acetaminophen [Percocet 10-325 mg Tablet] 1 - 2 tab PO Q4H PRN 12/08 Zolpidem Tartrate [Ambien] 10 mg PO HS PRN 10/28/13 Hydrocortisone [Cortef -] 10 mg PO DAILY 01/09/17 Metoprolol Succinate [Toprol XL -] 25 mg PO BID 01/09/17 Sulfamethoxazole/Trimethoprim [Bactrim Ds -] 1 tab PO DAILY 03/26/17 Family Disease History - Family Disease History Other Family History: Non-contribuatory Review of Systems - Review of Systems Constitutional: reports: Weakness, Other Eyes: reports: No Symptoms HENT: reports: No Symptoms Neck: reports: No Symptoms Cardiovascular: reports: No Symptoms Respiratory: reports: No Symptoms Gastrointestinal: reports: Abdominal Pain, Vomiting Blood Genitourinary: reports: No Symptoms Musculoskeletal: reports: No Symptoms Integumentary: reports: No Symptoms Neurological: reports: No Symptoms Endocrine: reports: No Symptoms Hematology/Lymphatic: reports: No Symptoms Psychiatric: reports: No Symptoms Physical Exam Vital Signs: Vital Signs Temperature 98.4 F 03/27/17 10:00 Pulse Rate 98 H 03/27/17 13:52 Respiratory Rate 20 03/27/17 10:00 Blood Pressure 102/67 03/27/17 13:52 O2 Sat by Pulse Oximetry (%) 97 03/27/17 09:00 Constitutional: Yes: Calm, Mild Distress Eyes: Yes: Conjunctiva Clear Neck: Yes: Supple Cardiovascular: Yes: Regular Rate and Rhythm Respiratory: Yes: Regular, Poor Air Entry Gastrointestinal: Yes: Soft, Hypoactive Bowel Sounds, Other (ng tube in place) Musculoskeletal: Yes: WNL Extremities: Yes: WNL Neurological: Yes: Alert, Oriented Psychiatric: Yes: Alert, Oriented Labs: CBC, BMP 03/27/17 08:26 03/27/17 08:26 Imaging - Results Chest X-ray: Report Reviewed, Image Reviewed Cat Scan: Report Reviewed, Image Reviewed Assessment/Plan patient seen discussed in detail with the family Paraesophageal hernia Bilateral knee replacements History of MRSA septic arthritis and osteomyelitis HTN Anxiety COPD HCV Hiatal hernia GI bleeds Gastric ulcers plan close watch on the patient continue to monitor hand h continue as per icu will not start on any abx hydration npo thoracic surgery on board cc time 45 min
--- NOTE | 2017-03-27 14:55 | CONSULT ---
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 osteomyelitis) - Past Surgical History Past Surgical History: Yes: Hysterectomy, Joint Replacement (Ttl Knee replacement x 2 right knee with 2 right knee revisions, Ttl Left knee replacement. MRSA infection) Additional Surgical History: Broken femur with post placement (right leg), left brokwn hand and wrist with pin placement and removel - Alcohol/Substance Use Hx Alcohol Use: No History of Substance Use: denies: Cocaine - Smoking History Smoking history: Former smoker Have you smoked in the past 12 months: No Aproximately how many cigarettes per day: 2 If you are a former smoker, when did you quit?: may 2013 - Social History ADL: Independent History of Recent Travel: No Home Medications - Allergies Allergies/Adverse Reactions: Allergies Allergy/AdvReac Type Severity Reaction Status Date / Time No Known Allergies Allergy Verified 07/10/16 15:36 - Home Medications Home Medications: Ambulatory Orders Escitalopram Oxalate [Lexapro -] 20 mg PO DAILY #0 tablet 07/11/13 Pantoprazole Sodium [Protonix -] 40 mg PO DAILY #0 tablet.ec 07/11/13 Lorazepam [Ativan] 1 mg PO TID PRN 10/28/13 Oxycodone HCl/Acetaminophen [Percocet 10-325 mg Tablet] 1 - 2 tab PO Q4H PRN 12/08 Zolpidem Tartrate [Ambien] 10 mg PO HS PRN 10/28/13 Hydrocortisone [Cortef -] 10 mg PO DAILY 01/09/17 Metoprolol Succinate [Toprol XL -] 25 mg PO BID 01/09/17 Sulfamethoxazole/Trimethoprim [Bactrim Ds -] 1 tab PO DAILY 03/26/17 Family Disease History - Family Disease History Family History: Unremarkable Other Family History: Non-contribuatory Review of Systems - Review of Systems Constitutional: denies: Chills, Fever Neck: reports: No Symptoms Cardiovascular: denies: Chest Pain Respiratory: reports: Cough, SOB on Exertion Gastrointestinal: reports: Nausea, Vomiting. denies: Abdominal Pain Neurological: denies: Change in LOC Pain Intensity: 3 Physical Exam Vital Signs: Vital Signs Temperature 98.4 F 03/27/17 10:00 Pulse Rate 98 H 03/27/17 13:52 Respiratory Rate 20 03/27/17 10:00 Blood Pressure 102/67 03/27/17 13:52 O2 Sat by Pulse Oximetry (%) 97 03/27/17 09:00 Constitutional: Yes: Calm Neck: Yes: Supple Cardiovascular: Yes: Tachycardia Respiratory: Yes: Diminished Gastrointestinal: Yes: Soft. No: Tenderness, Tenderness, Rebound Neurological: Yes: Alert, Oriented Labs: CBC, BMP 03/27/17 08:26 03/27/17 08:26 Imaging - Results Cat Scan: Report Reviewed, Image Reviewed Assessment/Plan 67 female with large hiatal hernia NG tube NPO IV fluids Seen by thoracic surgery Will discuss repair
--- NOTE | 2017-03-27 15:32 | PN ---
Progress Note (short form) - Note Progress Note: air auscultated over the epigastric region when and tube is draining dark material 200ml in canister now that the pt is in the ICU. Repeat CXR/axr to see placement of NGT. IT continue to drain GI contents.
[2017-03-27] MEDS ORDERED: ONDANSETRON 4 MG/2 ML VIAL IVPB PRN (15:39)
[2017-03-27] MEDS ORDERED: ALBUTEROL SO4 2.5/IPRATROPIUM 0.5 INH SOL 3 ML VIAL.NEB. NEB PRN (15:39)
--- NOTE | 2017-03-27 15:55 | CONSULT ---
Consult Consult Specialty:: PULM/CCM Referred by:: DESMOND Reason for Consultation:: R/O Obstruction - History of Present Illness Chief Complaint: abdominal pain History of Present Illness: 67 F, with listed medical history. Admitted via the ER due to vomiting and upper abdominal discomfort for 3 days. Imaging revealed a large paraesophageal hernia with retained material. Vomitus was apparently brown without blood. No report of rectal bleeding. The paraesophageal hernia contains most of her stomach as well as colon loops. Previous history of laparotomy with repair of gastric ulcer perforation and placement of an open gastrostomy tube that was subsequently removed. Transferred to the ICU for concern for possible gastric outlet obstruction. NGT was inserted and about about 700cc of green/dark material obtained. 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 osteomyelitis) - Past Surgical History Past Surgical History: Yes: Hysterectomy, Joint Replacement (Ttl Knee replacement x 2 right knee with 2 right knee revisions, Ttl Left knee replacement. MRSA infection) Additional Surgical History: Broken femur with post placement (right leg), left brokwn hand and wrist with pin placement and removel - Alcohol/Substance Use Hx Alcohol Use: No History of Substance Use: denies: Cocaine - Smoking History Smoking history: Former smoker Have you smoked in the past 12 months: No Aproximately how many cigarettes per day: 2 If you are a former smoker, when did you quit?: may 2013 - Social History ADL: Independent History of Recent Travel: No Home Medications - Allergies Allergies/Adverse Reactions: Allergies Allergy/AdvReac Type Severity Reaction Status Date / Time No Known Allergies Allergy Verified 07/10/16 15:36 - Home Medications Home Medications: Ambulatory Orders Escitalopram Oxalate [Lexapro -] 20 mg PO DAILY #0 tablet 07/11/13 Pantoprazole Sodium [Protonix -] 40 mg PO DAILY #0 tablet.ec 07/11/13 Lorazepam [Ativan] 1 mg PO TID PRN 10/28/13 Oxycodone HCl/Acetaminophen [Percocet 10-325 mg Tablet] 1 - 2 tab PO Q4H PRN 12/08 Zolpidem Tartrate [Ambien] 10 mg PO HS PRN 10/28/13 Hydrocortisone [Cortef -] 10 mg PO DAILY 01/09/17 Metoprolol Succinate [Toprol XL -] 25 mg PO BID 01/09/17 Sulfamethoxazole/Trimethoprim [Bactrim Ds -] 1 tab PO DAILY 03/26/17 Family Disease History - Family Disease History Other Family History: Non-contribuatory Review of Systems - Review of Systems Constitutional: reports: Loss of Appetite, Malaise. denies: Chills, Fever, Night Sweats, Unintentional Wgt. Loss, Weakness Eyes: reports: No Symptoms HENT: reports: No Symptoms Neck: reports: No Symptoms Cardiovascular: denies: Chest Pain, Edema, Palpitations, Shortness of Breath Respiratory: denies: Cough, Hemoptysis, Snoring, SOB, SOB on Exertion, Wheezing Gastrointestinal: reports: Abdominal Pain, Bloating, Indigestion, Nausea, Vomiting. denies: Diarrhea, Melena, Rectal Bleeding, Vomiting Blood Genitourinary: reports: No Symptoms Breasts: reports: No Symptoms Reported Musculoskeletal: reports: No Symptoms Integumentary: reports: No Symptoms Neurological: reports: No Symptoms Endocrine: reports: No Symptoms Hematology/Lymphatic: reports: No Symptoms Psychiatric: reports: No Symptoms Physical Exam Vital Signs: Vital Signs Temperature 98.4 F 03/27/17 10:00 Pulse Rate 98 H 03/27/17 13:52 Respiratory Rate 20 03/27/17 10:00 Blood Pressure 98/63 03/27/17 14:48 O2 Sat by Pulse Oximetry (%) 97 03/27/17 09:00 Constitutional: Yes: No Distress, Thin Eyes: Yes: WNL, Conjunctiva Clear, EOM Intact HENT: Yes: Atraumatic, Normocephalic Neck: Yes: Supple, Trachea Midline Cardiovascular: Yes: Regular Rate and Rhythm Respiratory: Yes: On Nasal O2. No: Accessory Muscle Use, Orthopnea, Rales, Rhonchi, SOB, Stridor, Tachypnea, Wheezes Gastrointestinal: Yes: Soft, Distention. No: Ascites, Hematemesis, Melena, Pulsatile Mass, Rectal Bleeding ...Rectal Exam: Yes: Deferred Renal/: Yes: WNL Musculoskeletal: Yes: WNL Extremities: Yes: WNL Edema: No Peripheral Pulses WNL: Yes Integumentary: Yes: WNL Neurological: Yes: WNL, Alert, Oriented ...Motor Strength: WNL Psychiatric: Yes: WNL, Alert, Oriented Labs: CBC, BMP 03/27/17 08:26 03/27/17 08:26 Imaging - Results Chest X-ray: Report Reviewed, Image Reviewed Cat Scan: Report Reviewed, Image Reviewed Assessment/Plan IMP: (?) Gastric outlet obstruction Paraesophageal hernia with retained material Bilateral knee replacements History of MRSA septic arthritis and osteomyelitis HTN Anxiety COPD HCV Hiatal hernia GI bleeds Gastric ulcers (?) history of adrenal insufficiency PLAN: NGT has been placed NPO Surgical consults noted O2 as needed VTE prophylaxis IVF (add dextrose) Strict I&O ICU monitoring Dr Orta Critical Care Time/MDM Note Total Critical Care Time: 35 Critical Care Statement: The care of this patient involved high complexity decision making to prevent further life threatening deterioration of the patient 's condition and/or to evalute & treat vital organ system(s) failure or risk of failure.
[2017-03-27] MEDS ORDERED: LEVOFLOXACIN 750 MG IVPB 150 ML IVPB SCH (18:00)
[2017-03-27] MEDS: D5-NS + 40 MEQ KCL - 1,000 ML IV SCH (18:05)
--- NOTE | 2017-03-27 20:25 | CONSULT ---
Consult Consult Specialty:: Endocrinology Referred by:: Cass Byrne Reason for Consultation:: Adrenal Insufficiency - History of Present Illness Chief Complaint: Nausea, vomiting History of Present Illness: This is a 67 year old female with PMHx of multiple b/l knee replacements, MRSA septic arthritis and osteomyelitis (2012), HTN, anxiety, COPD, HCV, hiatal hernia, GI bleeds, gastric ulcers, adrenal insufficiency, who presented to the ED with persistent vomiting x3 days. CT abdomen showed large fluid filled hiatal hernia. No small bowel obstruction. Pt admitted to ICU and NGT inserted now shows dark colored aspirate. Pt says she was admitted to [facility] for Rt knee surgery. Pt also had h/o abnormal TFT in November this year which has resolved . Pt had weight loss of around 30 lbs in one year. Work up to r/o Pheo showed borderline abnormal plasma epinephrine and Dopamine. 24 hr catecholamines were however normal. 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 osteomyelitis) - Past Surgical History Past Surgical History: Yes: Hysterectomy, Joint Replacement (Ttl Knee replacement x 2 right knee with 2 right knee revisions, Ttl Left knee replacement. MRSA infection) Additional Surgical History: Broken femur with post placement (right leg), left brokwn hand and wrist with pin placement and removel - Alcohol/Substance Use Hx Alcohol Use: No History of Substance Use: denies: Cocaine - Smoking History Smoking history: Former smoker Have you smoked in the past 12 months: No Aproximately how many cigarettes per day: 2 If you are a former smoker, when did you quit?: may 2013 - Social History ADL: Independent History of Recent Travel: No Home Medications - Allergies Allergies/Adverse Reactions: Allergies Allergy/AdvReac Type Severity Reaction Status Date / Time No Known Allergies Allergy Verified 07/10/16 15:36 - Home Medications Home Medications: Ambulatory Orders Escitalopram Oxalate [Lexapro -] 20 mg PO DAILY #0 tablet 07/11/13 Pantoprazole Sodium [Protonix -] 40 mg PO DAILY #0 tablet.ec 11/15/13 Lorazepam [Ativan] 1 mg PO TID PRN 10/28/13 Oxycodone HCl/Acetaminophen [Percocet 10-325 mg Tablet] 1 - 2 tab PO Q4H PRN 12/08 Zolpidem Tartrate [Ambien] 10 mg PO HS PRN 10/28/13 Hydrocortisone [Cortef -] 10 mg PO DAILY 01/09/17 Metoprolol Succinate [Toprol XL -] 25 mg PO BID 01/09/17 Sulfamethoxazole/Trimethoprim [Bactrim Ds -] 1 tab PO DAILY 03/26/17 Family Disease History - Family Disease History Other Family History: Non-contribuatory Review of Systems - Review of Systems Constitutional: reports: Malaise Eyes: reports: No Symptoms HENT: reports: No Symptoms Neck: reports: No Symptoms Cardiovascular: reports: No Symptoms Respiratory: reports: No Symptoms Gastrointestinal: reports: Nausea, Vomiting Genitourinary: reports: No Symptoms Musculoskeletal: reports: No Symptoms Neurological: reports: No Symptoms Endocrine: reports: No Symptoms Physical Exam Vital Signs: Vital Signs Temperature 98.6 F 03/27/17 18:00 Pulse Rate 95 H 03/27/17 18:00 Respiratory Rate 20 03/27/17 18:00 Blood Pressure 92/61 03/27/17 18:00 O2 Sat by Pulse Oximetry (%) 99 03/27/17 18:28 Constitutional: Yes: No Distress, Calm Eyes: Yes: Conjunctiva Clear, EOM Intact HENT: Yes: Atraumatic, Normocephalic Neck: Yes: Supple, Trachea Midline Cardiovascular: Yes: Regular Rate and Rhythm Respiratory: Yes: Regular, CTA Bilaterally Gastrointestinal: Yes: Normal Bowel Sounds, Soft Extremities: Yes: WNL Edema: No Labs: CBC, BMP 03/27/17 08:26 03/27/17 08:26 Imaging - Results Cat Scan: Report Reviewed Assessment/Plan AP: (?) history of adrenal insufficiency: Pt says she has been taking Hydrocortisone for about 6 months Start Hydrocortisone 50 mg Q 8 hrs Confirm if she was on it from her [facility], in the morning as it is currently closed. (?) Gastric outlet obstruction: S/P NGT insertion Paraesophageal hernia with retained material Bilateral knee replacements: Rt knee surgery done at [facility] in December this year as per pt. History of MRSA septic arthritis and osteomyelitis HTN Anxiety COPD HCV Hiatal hernia GI bleeds Gastric ulcers
[2017-03-27] MEDS ORDERED: morphine CARPU-JECT 4 MG/1 ML DISP.SYRIN IVPUSH PRN (20:38)
[2017-03-27] MEDS: HYDROCORTISONE SOD SUCCINATE 100 MG/2 ML VIAL IVPB SCH (21:32)
[2017-03-27] MEDS ORDERED: FAMOTIDINE 20 MG/50 ML IVPB 50 ML IVPB SCH (22:00)
[2017-03-27] MEDS ORDERED: ENOXAPARIN NA (PORCINE) 40 MG/0.4 ML DISP.SYRIN SQ SCH (22:00)
[2017-03-28] MEDS: HYDROCORTISONE SOD SUCCINATE 100 MG/2 ML VIAL IVPB SCH ×3 (01:14→17:52)
[2017-03-28] MEDS: PANTOPRAZOLE SODIUM 80 MG in SODIUM CHLORIDE 100 ML IVPB SCH ×4 (01:14→20:24)
[2017-03-28] MEDS: morphine CARPU-JECT 4 MG/1 ML DISP.SYRIN IVPUSH PRN ×3 (01:43→14:46)
[2017-03-28] MEDS: D5-NS + 40 MEQ KCL - 1,000 ML IV SCH (05:51)
[2017-03-28 06:34] LABS: BASOPHIL 0.1 % (0-2.0); EOSINOPHIL 0.1 % (0-4.5); MCHC 32.1 g/dl (32.0-36.0); MEAN CELL VOLUME 84.1 fl (80-96); MEAN PLT VOLUME 7.4 fl (7.5-11.1); NEUTROPHILS 83.8 % (42.8-82.8); PLATELET COUNT 187 K/MM3 (134-434); RDW 16.2 % (11.6-15.6); WHITE BLOOD COUNT 3.5 K/mm3 (4.0-10.0)
[2017-03-28 06:55] LABS: ALBUMIN 2.3 g/dl (3.4-5.0); ALK PHOS 62 U/L (45-117); ANION GAP 7 (8-16); BILIRUBIN,TOTAL 0.3 mg/dL (0.2-1.0); CALCIUM 7.8 mg/dL (8.5-10.1); CO2 20 mmol/L (21-32); CREATININE 0.6 mg/dL (0.55-1.02); GLUCOSE,RANDOM 142 mg/dL (74-106); SGOT/AST 17 U/L (15-37); SGPT/ALT 16 U/L (12-78); TOT PROT 4.4 g/dl (6.4-8.2)
--- NOTE | 2017-03-28 08:02 | PN ---
Progress Note (short form) - Note Progress Note: 67 yo female with type 4 paraesophageal hernia. Transferred to ICU for closer observation. A NGT was inserted yesterday and immediately drained 500mL (bilious ). States she is passing flatus. Currently, alert and HOB at 30 degrees. Denies n/v/f/c, CP or SOB. Last Vital Signs Temp Pulse Resp BP Pulse Ox 98.5 F 75 15 86/57 99 03/28/17 02:00 03/28/17 05:17 03/28/17 05:17 03/28/17 05:17 03/27/17 20:57 CBC, BMP 03/28/17 05:30 03/28/17 05:30 INR, PTT INR 1.04 (0.82-1.09) 03/26/17 14:49 Blood Type Blood Type O POSITIVE 03/26/17 14:50 AXR 03/27: ngt identified below level of diaphragm and significant decrease in fluid accumulation Gen: alert. nad. Nose: ngt 950mL bilious (since insertion) Abd: soft, nt. nd. + bowel sounds : chung to gravity 900mL LE: SCDs b/l soft. nt. Neg edema/swelling Problem List - Problems (1) Paraesophageal hernia Assessment/Plan: NPO / IVF GI / DVT PPX Monitor H/H as Hct slowly drifting down Monitor I/Os and record QH No narcotics for pain as this can mask worsening disease. Cont ICU management Above plan discussed with Dr. Maurer and agrees Code(s): K44.9 - DIAPHRAGMATIC HERNIA WITHOUT OBSTRUCTION OR GANGRENE
--- NOTE | 2017-03-28 09:34 | PN ---
GI Progress Note Subjective: No acute events No abdominal pain States feeling well NGT placed yesterday - Objective Vital Signs: Vital Signs Temperature 98.5 F 03/28/17 02:00 Pulse Rate 75 03/28/17 05:17 Respiratory Rate 15 03/28/17 05:17 Blood Pressure 86/57 03/28/17 05:17 O2 Sat by Pulse Oximetry (%) 99 03/27/17 20:57 Constitutional: Calm Eyes: No: Sclera Icterus Cardiovascular: Yes: Regular Rate and Rhythm, Murmur Respiratory: Yes: CTA Bilaterally ...Auscultate: Yes: Normoactive Bowel Sounds ...Palpate: No: Tenderness ...Percussion: No: Tympanitic Edema: No Neurological: Yes: Alert, Oriented Labs: CBC, BMP 03/28/17 05:30 03/28/17 05:30 INR, PTT INR 1.04 (0.82-1.09) 03/26/17 14:49 Problem List - Problems (1) Paraesophageal hernia Assessment/Plan: Being fluid resuscitated and I suspect the precipitous drop in H/H reflects a dilutional change. No signs of overt ongoing GI bleeding currently Monitor H/H Continue NGT decompression CT surgery following Possible EGD in AM ICU staff working on IV access Code(s): K44.9 - DIAPHRAGMATIC HERNIA WITHOUT OBSTRUCTION OR GANGRENE
[2017-03-28] MEDS ORDERED: HYDROCORTISONE 10 MG TABLET PO SCH (10:00)
--- NOTE | 2017-03-28 11:42 | PN ---
Progress Note, Physician History of Present Illness: patient seen and examined at bedside no events overnight feels anxious - Current Medication List Current Medications: Active Medications Albuterol/Ipratropium (Duoneb -) 1 amp NEB QIDR PRN PRN Reason: SHORT OF BREATH/WHEEZING Hydrocortisone Sodium Succinate (Solu-Cortef -) 50 mg IVPB Q8H-IV ALFREDA Last Admin: 03/28/17 09:52 Dose: 50 mg Pantoprazole Sodium 80 mg/ (Sodium Chloride) 100 mls @ 10 mls/hr IVPB Q10H ALFREDA PRN Reason: 8 MG/HR Last Admin: 03/28/17 05:50 Dose: 10 mls/hr Dextrose/Sodium Chloride (Dextrose 5%-Normal Saline+40 Meq Kcl -) 1,000 mls @ 100 mls/hr IV ASDIR ALFREDA Last Admin: 03/28/17 05:51 Dose: 100 mls/hr Lorazepam (Ativan Injection -) 0.5 mg IVPB Q8H PRN PRN Reason: ANXIETY Morphine Sulfate (Morphine Injection -) 2 mg IVPUSH Q2H PRN PRN Reason: PAIN Last Admin: 03/28/17 08:14 Dose: 2 mg Ondansetron HCl (Zofran Injection) 4 mg IVPB Q6H PRN PRN Reason: NAUSEA AND/OR VOMITING - Objective Vital Signs: Vital Signs Temperature 97.7 F 03/28/17 08:00 Pulse Rate 70 03/28/17 10:00 Respiratory Rate 16 03/28/17 10:00 Blood Pressure 110/71 03/28/17 10:00 O2 Sat by Pulse Oximetry (%) 99 03/27/17 20:57 Constitutional: Yes: Well Nourished, Anxious Eyes: Yes: Conjunctiva Clear HENT: Yes: Atraumatic, Normocephalic Neck: Yes: Supple, Trachea Midline Cardiovascular: Yes: Regular Rate and Rhythm Respiratory: Yes: CTA Bilaterally Gastrointestinal: Yes: Soft, Other (NG tube in place) Edema: No Neurological: Yes: Alert, Oriented Psychiatric: Yes: Alert, Oriented, Other (anxious) Labs: CBC, BMP 03/28/17 05:30 03/28/17 05:30 INR, PTT INR 1.04 (0.82-1.09) 03/26/17 14:49 - ....Imaging Chest X-ray: Report Reviewed, Image Reviewed X-ray: Report Reviewed, Image Reviewed (abdominal) Assessment/Plan 67 year old female with PMHx of multiple b/l knee replacements, MRSA septic arthritis and osteomyelitis (2012), HTN, anxiety, COPD, HCV, hiatal hernia, GI bleeds, gastric ulcers, adrenal insufficiency admitted with persistent vomiting x3 days. Plan: Upper GI bleed: EGD in AM IVF Protonix gtt hold chemical DVT PPx paraesophageal hiatal hernia: NGT for decompression NPO IVF GI consult for EGD in AM ID: No issues Acute urinary retention chung Adrenal insufficiency decrease Cortef 50mg q12h Endocrine following Anxiety - Ativan 0.5mg IVPB prn Dehydration continue fluids Hyponatremia resolved Prophylaxis SCDs Protonix gtt PT consult CCTime 35 min Transfer to telemetry
[2017-03-28 11:59] LABS: MAGNESIUM 1.9 mg/dL (1.8-2.4); PHOSPHOROUS 2.8 mg/dL (2.5-4.9)
--- NOTE | 2017-03-28 12:43 | PN ---
Physical Exam: SUBJECTIVE: Patient seen and examined in ICU. She is feeling thirsty and has pain from ngt. Denies sob, chest pain, further vomiting. OBJECTIVE: Vital Signs Period Temp Pulse Resp BP Sys/Xiao Pulse Ox Last 24 Hr 97.7 F-98.7 F 70-99 15-22 83-110/36-71 99-99 PE Neuro: alert, awake, cn 2-12intact HEENT: + NGT tube green bilious outpt Pulm: Clear anteriorly CV: s1 s2 rrr no mrg Abd: s nt nd + bs : chung Ext: warm no le edema Laboratory Results - last 24 hr 03/28/17 03/28/17 05:30 05:30 WBC 3.5 L D RBC 3.07 L D Hgb 8.3 L D Hct 25.8 L D MCV 84.1 MCH 27.0 MCHC 32.1 RDW 16.2 H Plt Count 187 D MPV 7.4 L Neutrophils % 83.8 H Lymphocytes % 11.8 D Monocytes % 4.2 Eosinophils % 0.1 Basophils % 0.1 Sodium 143 Potassium 3.9 D Chloride 116 H Carbon Dioxide 20 L Anion Gap 7 L BUN 24 H D Creatinine 0.6 D Creat Clearance w eGFR > 60 Random Glucose 142 H D Calcium 7.8 L Phosphorus 2.8 D Magnesium 1.9 Total Bilirubin 0.3 D AST 17 D ALT 16 D Alkaline Phosphatase 62 Total Protein 4.4 L Albumin 2.3 L Active Medications Generic Name Dose Route Start Last Admin Trade Name Freq PRN Reason Stop Dose Admin Albuterol/Ipratropium 1 amp 03/27/17 15:39 Duoneb - NEB QIDR PRN SHORT OF BREATH/WHEEZING Hydrocortisone Sodium Succinate 50 mg 03/27/17 21:00 03/28/17 09:52 Solu-Cortef - IVPB 50 mg Q8H-IV ALFREDA Administration Pantoprazole Sodium 80 mg/ 100 mls @ 10 mls/hr 03/28/17 00:15 03/28/17 05:50 Sodium Chloride IVPB 10 mls/hr Q10H ALFREDA Administration 8 MG/HR Dextrose/Sodium Chloride 1,000 mls @ 100 mls/hr 03/27/17 16:15 03/28/17 05:51 Dextrose 5%-Normal Saline+40 Meq Kcl - IV 100 mls/hr ASDIR ALFREDA Administration Lorazepam 0.5 mg 03/27/17 15:39 Ativan Injection - IVPB Q8H PRN ANXIETY Morphine Sulfate 2 mg 03/27/17 22:42 03/28/17 08:14 Morphine Injection - IVPUSH 2 mg Q2H PRN Administration PAIN Ondansetron HCl 4 mg 03/27/17 15:39 Zofran Injection IVPB Q6H PRN NAUSEA AND/OR VOMITING Imaging: - CTAP with no evidence of acute process, no colitis Microbiology 03/26/17 15:00 Urine - Urine Clean Catch Urine Culture - Final NO GROWTH OBTAINED 03/26/17 14:42 Blood - Peripheral Venous Blood Culture - Preliminary NO GROWTH OBTAINED AFTER 24 HOURS, INCUBATION TO CONTINUE FOR 4 DAYS. 03/26/17 14:50 Blood - Peripheral Venous Blood Culture - Preliminary NO GROWTH OBTAINED AFTER 24 HOURS, INCUBATION TO CONTINUE FOR 4 DAYS. Assessment: 67 year old female with PMHx of multiple b/l knee replacements, MRSA septic arthritis and osteomyelitis (2012), HTN, anxiety, COPD, HCV, hiatal hernia, GI bleeds, gastric ulcers, adrenal insufficiency admitted with persistent vomiting x3 days. Plan: 1. Upper GI bleed - Maintain NGT - Possible EGD tomorrow AM - Change IVF to NS 100cc/hr - Protonix gtt - NPO - Repeat CBC @1300 2. Large hiatal hernia - CT surgery and surgery to discuss repair 3. SIRS - Resolving - Keep off abx - Culture data negative to date 4. Acute urinary retention - Keep chung 5. Adrenal insufficiency - Continue Cortef 50mg q8 - Endocrine following 6. Anxiety - Ativan 0.5mg IVPB prn 7. Dehydration - Improving - Maintain fluids 8. Hyponatremia - D/t dehydration, now resolved 9. Prophylaxis - SCDs bilaterally - Hold all chemical dvt prophylaxis 2/2 possible GI bleed Visit type - Emergency Visit Emergency Visit: Yes ED Registration Date: 03/26/17 Care time: The patient presented to the Emergency Department on the above date and was hospitalized for further evaluation of their emergent condition. - New Patient This patient is new to me today: Yes Date on this admission: 03/28/17 - Critical Care Critical Care patient: No
[2017-03-28] MEDS: SODIUM CHLORIDE 1,000 ML IV SCH (13:04)
[2017-03-28 13:15] LABS: MCH 26.7 pg (25.7-33.7); MCHC 31.8 g/dl (32.0-36.0); MEAN CELL VOLUME 83.9 fl (80-96); MEAN PLT VOLUME 7.1 fl (7.5-11.1); PLATELET COUNT 190 K/MM3 (134-434); RDW 16.1 % (11.6-15.6); WHITE BLOOD COUNT 3.6 K/mm3 (4.0-10.0)
--- NOTE | 2017-03-28 15:09 | PN ---
Progress Note (short form) - Note Progress Note: S/P insertion Rt IJ line for IV access No Nausea, No BM, Passing flatus Vital Signs Period Temp Pulse Resp BP Sys/Xiao Pulse Ox Last 24 Hr 97.7 F-98.7 F 70-99 15-22 83-110/36-72 99-99 PE: AOx3 Neck: Supple, No JVD, Rt IJ line in place HEENT: EOMI Lungs: CTA Abd: Benign CVS: S1S@ EXt: No edema Neuro: No focal deficit CBC,CMP WBC 3.6 K/mm3 (4.0-10.0) L 03/28/17 12:45 RBC 3.12 M/mm3 (3.60-5.2) L 03/28/17 12:45 Hgb 8.3 GM/dL (10.7-15.3) L 03/28/17 12:45 Hct 26.2 % (32.4-45.2) L 03/28/17 12:45 MCV 83.9 fl (80-96) 03/28/17 12:45 MCH 26.7 pg (25.7-33.7) 03/28/17 12:45 MCHC 31.8 g/dl (32.0-36.0) L 03/28/17 12:45 RDW 16.1 % (11.6-15.6) H 03/28/17 12:45 Plt Count 190 K/MM3 (134-434) 03/28/17 12:45 MPV 7.1 fl (7.5-11.1) L 03/28/17 12:45 Neutrophils % 83.8 % (42.8-82.8) H 03/28/17 05:30 Lymphocytes % 11.8 % (8-40) D 03/28/17 05:30 Monocytes % 4.2 % (3.8-10.2) 03/28/17 05:30 Eosinophils % 0.1 % (0-4.5) 03/28/17 05:30 Basophils % 0.1 % (0-2.0) 03/28/17 05:30 Sodium 143 mmol/L (136-145) 03/28/17 05:30 Potassium 3.9 mmol/L (3.5-5.1) D 03/28/17 05:30 Chloride 116 mmol/L (98-107) H 03/28/17 05:30 Carbon Dioxide 20 mmol/L (21-32) L 03/28/17 05:30 Anion Gap 7 (8-16) L 03/28/17 05:30 BUN 24 mg/dL (7-18) H D 03/28/17 05:30 Creatinine 0.6 mg/dL (0.55-1.02) D 03/28/17 05:30 Creat Clearance w eGFR > 60 (>60) 03/28/17 05:30 Random Glucose 142 mg/dL (74-106) H D 03/28/17 05:30 Lactic Acid 1.9 mmol/L (0.4-2.0) 03/26/17 14:50 Calcium 7.8 mg/dL (8.5-10.1) L 03/28/17 05:30 Phosphorus 2.8 mg/dL (2.5-4.9) D 03/28/17 05:30 Magnesium 1.9 mg/dL (1.8-2.4) 03/28/17 05:30 Total Bilirubin 0.3 mg/dL (0.2-1.0) D 03/28/17 05:30 AST 17 U/L (15-37) D 03/28/17 05:30 ALT 16 U/L (12-78) D 03/28/17 05:30 Alkaline Phosphatase 62 U/L (45-117) 03/28/17 05:30 Creatine Kinase 56 IU/L (26-192) 03/26/17 14:40 Troponin I 0.02 ng/ml (0.00-0.05) 03/26/17 14:40 Total Protein 4.4 g/dl (6.4-8.2) L 03/28/17 05:30 Albumin 2.3 g/dl (3.4-5.0) L 03/28/17 05:30 Lipase 123 U/L (73-393) 03/26/17 14:40 Current Medications Generic Name Dose Route Start Last Admin Trade Name Freq PRN Reason Stop Dose Admin Albuterol/Ipratropium 1 amp 03/27/17 15:39 Duoneb - NEB QIDR PRN SHORT OF BREATH/WHEEZING Hydrocortisone Sodium Succinate 50 mg 03/27/17 21:00 03/28/17 09:52 Solu-Cortef - IVPB 50 mg Q8H-IV ALFREDA Administration Pantoprazole Sodium 80 mg/ 100 mls @ 10 mls/hr 03/28/17 00:15 03/28/17 05:50 Sodium Chloride IVPB 10 mls/hr Q10H ALFREDA Administration 8 MG/HR Sodium Chloride 1,000 mls @ 100 mls/hr 03/28/17 13:00 03/28/17 13:04 Normal Saline - IV 100 mls/hr ASDIR ALFREDA Administration Lorazepam 0.5 mg 03/27/17 15:39 Ativan Injection - IVPB Q8H PRN ANXIETY Morphine Sulfate 2 mg 03/27/17 22:42 03/28/17 14:46 Morphine Injection - IVPUSH 2 mg Q2H PRN Administration PAIN Ondansetron HCl 4 mg 03/27/17 15:39 Zofran Injection IVPB Q6H PRN NAUSEA AND/OR VOMITING AP: ? Adrenal Insufficiency: Confirmed with pt's pharmacy Jayme Castillo that pt is on Hydrocortisone 10 mg daily. Last filled in January Decrease Hydrocortisone 50mg IVPV Q12H (?) Gastric outlet obstruction: S/P NGT insertion Paraesophageal hernia with retained material Bilateral knee replacements: Rt knee surgery done at [facility] in December this year as per pt. History of MRSA septic arthritis and osteomyelitis HTN Anxiety COPD Gastric ulcers
--- NOTE | 2017-03-28 15:51 | PROC ---
<Darnell Francisco - Last Filed: 03/28/17 15:50> Central Line Insertion Indication: Poor Venous Access Risks and Benefits Explained: Yes Consent on Chart: Yes Central Line: Triple Lumen Catheter Anesthesia: 2% Lidocaine Sterile Technique: Yes Ultrasound Guided Assistance: Yes Position: Right Internal Jugular Post Insertion: Yes: Bilateral Breath Sounds, Chest X-Ray Ordered Sterile Dressing Applied: Yes <Brian Marinelli MD - Last Filed: 03/28/17 16:26> Procedure Note Procedure: I supervised and was present during the entire procedure. Brian Marinelli MD
--- NOTE | 2017-03-28 16:28 | PN ---
Teaching Attending Note Name of Resident: Darnell Francisco ATTENDING PHYSICIAN STATEMENT I saw and evaluated the patient. I reviewed the resident's note and discussed the case with the resident. I agree with the resident's findings and plan as documented. SUBJECTIVE: Pt seen and examined in the ICU. NGT placed with improvement in symptoms. Denies nausea or vomiting. +flatus. OBJECTIVE: Last Vital Signs Temp Pulse Resp BP Pulse Ox 98.3 F 76 16 110/72 99 03/28/17 14:00 03/28/17 14:00 03/28/17 14:00 03/28/17 14:00 03/28/17 09:00 Intake & Output 03/25/17 03/26/17 03/27/17 03/28/17 23:59 23:59 23:59 23:59 Intake Total 2202 770 Output Total 1800 1400 Balance 402 -630 Weight 150 lb Gen: NAD at rest Heart: RRR Lung: decreased breath sounds at the bases Abd: soft, nontender Ext: no edema CBC, BMP 03/28/17 12:45 03/28/17 05:30 Active Medications Acetaminophen (Ofirmev Injection -) 1,000 mg IVPB Q6H PRN PRN Reason: FEVER OR PAIN Stop: 03/29/17 10:10 Albuterol/Ipratropium (Duoneb -) 1 amp NEB QIDR PRN PRN Reason: SHORT OF BREATH/WHEEZING Hydrocortisone Sodium Succinate (Solu-Cortef -) 50 mg IVPB Q12H ALFREDA Pantoprazole Sodium 80 mg/ (Sodium Chloride) 100 mls @ 10 mls/hr IVPB Q10H ALFREDA PRN Reason: 8 MG/HR Last Admin: 03/28/17 05:50 Dose: 10 mls/hr Sodium Chloride (Normal Saline -) 1,000 mls @ 100 mls/hr IV ASDIR ALFREDA Last Admin: 03/28/17 13:04 Dose: 100 mls/hr Lorazepam (Ativan Injection -) 0.5 mg IVPB Q8H PRN PRN Reason: ANXIETY Ondansetron HCl (Zofran Injection) 4 mg IVPB Q6H PRN PRN Reason: NAUSEA AND/OR VOMITING ASSESSMENT AND PLAN: r/o GI Bleed r/o Bowel Obstruction Paraesophageal Hernia Adrenal Insufficiency - monitor H/H - protonix - IVF - NPO - continue hydrocortisone - for EGD tomorrow - DVT prophylaxis - can monitor on floor
[2017-03-28] MEDS: ACETAMINOPHEN 1000 MG/100 ML VIAL (NON FORMULARY) IVPB PRN ×2 (16:55→23:17)
--- NOTE | 2017-03-28 18:07 | PN ---
Progress Note, Physician History of Present Illness: patient stable feeling better for scopy tomorrow - Current Medication List Current Medications: Active Medications Acetaminophen (Ofirmev Injection -) 1,000 mg IVPB Q6H PRN PRN Reason: FEVER OR PAIN Stop: 03/29/17 10:10 Last Admin: 03/28/17 16:55 Dose: 1,000 mg Albuterol/Ipratropium (Duoneb -) 1 amp NEB QIDR PRN PRN Reason: SHORT OF BREATH/WHEEZING Hydrocortisone Sodium Succinate (Solu-Cortef -) 50 mg IVPB Q12H ALFREDA Pantoprazole Sodium 80 mg/ (Sodium Chloride) 100 mls @ 10 mls/hr IVPB Q10H ALFREDA PRN Reason: 8 MG/HR Last Admin: 03/28/17 05:50 Dose: 10 mls/hr Sodium Chloride (Normal Saline -) 1,000 mls @ 100 mls/hr IV ASDIR ALFREDA Last Admin: 03/28/17 13:04 Dose: 100 mls/hr Lorazepam (Ativan Injection -) 0.5 mg IVPB Q8H PRN PRN Reason: ANXIETY Ondansetron HCl (Zofran Injection) 4 mg IVPB Q6H PRN PRN Reason: NAUSEA AND/OR VOMITING - Objective Vital Signs: Vital Signs Temperature 98.3 F 03/28/17 14:00 Pulse Rate 76 03/28/17 14:00 Respiratory Rate 16 03/28/17 14:00 Blood Pressure 110/72 03/28/17 14:00 O2 Sat by Pulse Oximetry (%) 99 03/28/17 09:00 Constitutional: Yes: No Distress, Calm Cardiovascular: Yes: Regular Rate and Rhythm Respiratory: Yes: Regular, CTA Bilaterally Gastrointestinal: Yes: Soft, Other (ng tube in place) Genitourinary: Yes: WNL Musculoskeletal: Yes: WNL Extremities: Yes: WNL Neurological: Yes: Alert Psychiatric: Yes: Alert, Oriented Labs: CBC, BMP 03/28/17 12:45 03/28/17 05:30 INR, PTT INR 1.04 (0.82-1.09) 03/26/17 14:49 Assessment/Plan patient seen discussed in detail with the family Paraesophageal hernia Bilateral knee replacements History of MRSA septic arthritis and osteomyelitis HTN Anxiety COPD HCV Hiatal hernia GI bleeds Gastric ulcers plan close watch on the patient continue to monitor hand h continue as per icu stable for endoscopy tomorrow hydration npo thoracic surgery on board cc time 40 min
[2017-03-28] MEDS ORDERED: ONDANSETRON 4 MG/2 ML VIAL IVPB PRN (18:35)
[2017-03-28] MEDS ORDERED: ALBUTEROL SO4 2.5/IPRATROPIUM 0.5 INH SOL 3 ML VIAL.NEB. NEB PRN (18:35)
[2017-03-29] MEDS: PANTOPRAZOLE SODIUM 80 MG in SODIUM CHLORIDE 100 ML IVPB SCH (05:47)
[2017-03-29] MEDS: HYDROCORTISONE SOD SUCCINATE 100 MG/2 ML VIAL IVPB SCH ×2 (05:47→16:58)
[2017-03-29 06:30] LABS: MCH 27.4 pg (25.7-33.7); MCHC 32.8 g/dl (32.0-36.0); MEAN CELL VOLUME 83.7 fl (80-96); MEAN PLT VOLUME 7.5 fl (7.5-11.1); PLATELET COUNT 203 K/MM3 (134-434); RDW 15.9 % (11.6-15.6); WHITE BLOOD COUNT 4.3 K/mm3 (4.0-10.0)
[2017-03-29 06:49] LABS: ALBUMIN 2.3 g/dl (3.4-5.0); ANION GAP 6 (8-16); CO2 21 mmol/L (21-32); GLUCOSE,RANDOM 93 mg/dL (74-106); MAGNESIUM 1.9 mg/dL (1.8-2.4); PHOSPHOROUS 3.6 mg/dL (2.5-4.9); SGOT/AST 25 U/L (15-37); SGPT/ALT 19 U/L (12-78)
[2017-03-29 06:52] LABS: ALK PHOS 60 U/L (45-117); BILIRUBIN,TOTAL 0.2 mg/dL (0.2-1.0); CREATININE 0.7 mg/dL (0.55-1.02); TOT PROT 4.4 g/dl (6.4-8.2)
--- NOTE | 2017-03-29 09:15 | PN ---
Progress Note (short form) - Note Progress Note: Feels better No nausea NGT removed for EGD Vital Signs Period Temp Pulse Resp BP Sys/Xiao Pulse Ox Last 24 Hr 97.9 F-98.8 F 70-89 16-20 103-124/58-85 99 PE: AOx3 Neck: Supple, No JVD, Rt IJ line in place HEENT: EOMI Lungs: CTA Abd: Benign CVS: S1S@ EXt: No edema Neuro: No focal deficit CBC,CMP WBC 4.3 K/mm3 (4.0-10.0) 03/29/17 05:30 RBC 2.83 M/mm3 (3.60-5.2) L 03/29/17 05:30 Hgb 7.8 GM/dL (10.7-15.3) L 03/29/17 05:30 Hct 23.7 % (32.4-45.2) L 03/29/17 05:30 MCV 83.7 fl (80-96) 03/29/17 05:30 MCH 27.4 pg (25.7-33.7) 03/29/17 05:30 MCHC 32.8 g/dl (32.0-36.0) 03/29/17 05:30 RDW 15.9 % (11.6-15.6) H 03/29/17 05:30 Plt Count 203 K/MM3 (134-434) 03/29/17 05:30 MPV 7.5 fl (7.5-11.1) 03/29/17 05:30 Neutrophils % 83.8 % (42.8-82.8) H 03/28/17 05:30 Lymphocytes % 11.8 % (8-40) D 03/28/17 05:30 Monocytes % 4.2 % (3.8-10.2) 03/28/17 05:30 Eosinophils % 0.1 % (0-4.5) 03/28/17 05:30 Basophils % 0.1 % (0-2.0) 03/28/17 05:30 Sodium 143 mmol/L (136-145) 03/29/17 05:30 Potassium 3.8 mmol/L (3.5-5.1) 03/29/17 05:30 Chloride 116 mmol/L (98-107) H 03/29/17 05:30 Carbon Dioxide 21 mmol/L (21-32) 03/29/17 05:30 Anion Gap 6 (8-16) L 03/29/17 05:30 BUN 22 mg/dL (7-18) H 03/29/17 05:30 Creatinine 0.7 mg/dL (0.55-1.02) 03/29/17 05:30 Creat Clearance w eGFR > 60 (>60) 03/29/17 05:30 Random Glucose 93 mg/dL (74-106) D 03/29/17 05:30 Lactic Acid 1.9 mmol/L (0.4-2.0) 03/26/17 14:50 Calcium 8.0 mg/dL (8.5-10.1) L 03/29/17 05:30 Phosphorus 3.6 mg/dL (2.5-4.9) D 03/29/17 05:30 Magnesium 1.9 mg/dL (1.8-2.4) 03/29/17 05:30 Total Bilirubin 0.2 mg/dL (0.2-1.0) D 03/29/17 05:30 AST 25 U/L (15-37) D 03/29/17 05:30 ALT 19 U/L (12-78) 03/29/17 05:30 Alkaline Phosphatase 60 U/L (45-117) 03/29/17 05:30 Creatine Kinase 56 IU/L (26-192) 03/26/17 14:40 Troponin I 0.02 ng/ml (0.00-0.05) 03/26/17 14:40 Total Protein 4.4 g/dl (6.4-8.2) L 03/29/17 05:30 Albumin 2.3 g/dl (3.4-5.0) L 03/29/17 05:30 Lipase 123 U/L (73-393) 03/26/17 14:40 Current Medications Generic Name Dose Route Start Last Admin Trade Name Freq PRN Reason Stop Dose Admin Acetaminophen 1,000 mg 03/28/17 16:09 03/28/17 23:17 Ofirmev Injection - IVPB 03/29/17 10:10 1,000 mg Q6H PRN Administration FEVER OR PAIN Albuterol/Ipratropium 1 amp 03/28/17 18:35 Duoneb - NEB QIDR PRN SHORT OF BREATH/WHEEZING Hydrocortisone Sodium Succinate 50 mg 03/28/17 18:00 03/29/17 05:47 Solu-Cortef - IVPB 50 mg Q12H ALFREDA Administration Sodium Chloride 1,000 mls @ 100 mls/hr 03/28/17 13:00 03/28/17 13:04 Normal Saline - IV 100 mls/hr ASDIR ALFREDA Administration Pantoprazole Sodium 80 mg/ 100 mls @ 10 mls/hr 03/28/17 20:15 03/29/17 05:47 Sodium Chloride IVPB 10 mls/hr Q10H ALFREDA Administration 8 MG/HR Lorazepam 0.5 mg 03/28/17 18:35 Ativan Injection - IVPB Q8H PRN ANXIETY Ondansetron HCl 4 mg 03/28/17 18:35 Zofran Injection IVPB Q6H PRN NAUSEA AND/OR VOMITING AP: Adrenal Insufficiency: Confirmed with pt's pharmacy Jayme Castillo that pt is on Hydrocortisone 10 mg daily. Last filled in January Continue Hydrocortisone 50mg IVPV Q12H Drop in H/H (?) Gastric outlet obstruction: S/P NGT insertion Paraesophageal hernia with retained material Bilateral knee replacements: Rt knee surgery done at [facility] in December this year as per pt. History of MRSA septic arthritis and osteomyelitis HTN Anxiety COPD Gastric ulcers
[2017-03-29] MEDS ORDERED: PROPOFOL 20 ML ONE ×2 (10:03)
--- NOTE | 2017-03-29 10:30 | PN ---
Progress Note (short form) - Note Progress Note: EGD report placed in procedural section of physical chart and to be scanned into [employer] Problem List - Problems (1) Paraesophageal hernia Code(s): K44.9 - DIAPHRAGMATIC HERNIA WITHOUT OBSTRUCTION OR GANGRENE
[2017-03-29] MEDS: SODIUM CHLORIDE 1,000 ML IV SCH (11:02)
--- NOTE | 2017-03-29 14:15 | PN ---
Progress Note (short form) - Note Progress Note: No acute complaints S/P EGD- no gastric outlet obstruction, + large hiatal hernia Vital Signs Period Temp Pulse Resp BP Sys/Xiao Pulse Ox Last 24 Hr 97.9 F-98.8 F 72-89 16-20 92-124/56-85 99 Abd soft, NT, ND CBC, BMP 03/29/17 05:30 03/29/17 05:30 Diet as tolerated Medical optimization Would discharge home when optimized Needs further outpatient optimization prior to any hernia repair
--- NOTE | 2017-03-29 15:19 | PN ---
Progress Note, Physician History of Present Illness: patient stable feeling better endoscopy done - Current Medication List Current Medications: Active Medications Albuterol/Ipratropium (Duoneb -) 1 amp NEB QIDR PRN PRN Reason: SHORT OF BREATH/WHEEZING Hydrocortisone Sodium Succinate (Solu-Cortef -) 50 mg IVPB Q12H COUNT INCLUDES THE [facility] Last Admin: 03/29/17 05:47 Dose: 50 mg Sodium Chloride (Normal Saline -) 1,000 mls @ 100 mls/hr IV ASDIR COUNT INCLUDES THE [facility] Last Admin: 03/29/17 11:02 Dose: 100 mls/hr Lorazepam (Ativan Injection -) 0.5 mg IVPB Q8H PRN PRN Reason: ANXIETY Ondansetron HCl (Zofran Injection) 4 mg IVPB Q6H PRN PRN Reason: NAUSEA AND/OR VOMITING Pantoprazole Sodium (Protonix -) 40 mg PO DAILY COUNT INCLUDES THE [facility] - Objective Vital Signs: Vital Signs Temperature 98 F 03/29/17 11:00 Pulse Rate 80 03/29/17 14:07 Respiratory Rate 16 03/29/17 14:07 Blood Pressure 100/56 03/29/17 14:07 O2 Sat by Pulse Oximetry (%) 99 03/28/17 21:00 Constitutional: Yes: No Distress, Calm Cardiovascular: Yes: Regular Rate and Rhythm Respiratory: Yes: Regular, CTA Bilaterally Gastrointestinal: Yes: Normal Bowel Sounds, Soft Musculoskeletal: Yes: WNL Extremities: Yes: WNL Neurological: Yes: Alert, Oriented Psychiatric: Yes: Alert, Oriented Labs: CBC, BMP 03/29/17 05:30 03/29/17 05:30 INR, PTT INR 1.04 (0.82-1.09) 03/26/17 14:49 Assessment/Plan patient seen discussed in detail with the family Paraesophageal hernia Bilateral knee replacements History of MRSA septic arthritis and osteomyelitis HTN Anxiety COPD HCV Hiatal hernia GI bleeds Gastric ulcers plan continue to monitor await for all reports rest as per primary team thoracic surgery on case
[2017-03-29 15:59] LABS: MCH 27.1 pg (25.7-33.7); MCHC 31.7 g/dl (32.0-36.0); MEAN CELL VOLUME 85.4 fl (80-96); MEAN PLT VOLUME 7.3 fl (7.5-11.1); PLATELET COUNT 222 K/MM3 (134-434); RDW 16.3 % (11.6-15.6); WHITE BLOOD COUNT 5.3 K/mm3 (4.0-10.0)
--- NOTE | 2017-03-29 16:17 | PN ---
Physical Exam: SUBJECTIVE: Patient seen and examined in ICU s/p EGD well tolerated. She is eating clears, she says her hgb is around 11. no further vomiting. Has some bone pain OBJECTIVE: Vital Signs Period Temp Pulse Resp BP Sys/Xiao Pulse Ox Last 24 Hr 97.9 F-98.8 F 72-89 16-20 92-124/56-85 99 PE Neuro: alert, awake, cn 2-12intact Pulm: CTAB CV: s1 s2 rrr no mrg Abd: s nt nd + bs : chung Ext: warm no le edema Laboratory Results - last 24 hr 03/29/17 03/29/17 03/29/17 05:30 05:30 10:40 WBC 4.3 RBC 2.83 L Hgb 7.8 L Hct 23.7 L MCV 83.7 MCH 27.4 MCHC 32.8 RDW 15.9 H Plt Count 203 MPV 7.5 Sodium 143 Potassium 3.8 Chloride 116 H Carbon Dioxide 21 Anion Gap 6 L BUN 22 H Creatinine 0.7 Creat Clearance w eGFR > 60 Random Glucose 93 D Calcium 8.0 L Phosphorus 3.6 D Magnesium 1.9 Total Bilirubin 0.2 D AST 25 D ALT 19 Alkaline Phosphatase 60 Total Protein 4.4 L Albumin 2.3 L Blood Type O POSITIVE Antibody Screen Negative 03/29/17 15:55 WBC 5.3 RBC 2.91 L Hgb 7.9 L Hct 24.8 L MCV 85.4 MCH 27.1 MCHC 31.7 L RDW 16.3 H Plt Count 222 MPV 7.3 L Sodium Potassium Chloride Carbon Dioxide Anion Gap BUN Creatinine Creat Clearance w eGFR Random Glucose Calcium Phosphorus Magnesium Total Bilirubin AST ALT Alkaline Phosphatase Total Protein Albumin Blood Type Antibody Screen Active Medications Generic Name Dose Route Start Last Admin Trade Name Freq PRN Reason Stop Dose Admin Albuterol/Ipratropium 1 amp 03/28/17 18:35 Duoneb - NEB QIDR PRN SHORT OF BREATH/WHEEZING Hydrocortisone Sodium Succinate 50 mg 03/28/17 18:00 03/29/17 05:47 Solu-Cortef - IVPB 50 mg Q12H ALFREDA Administration Sodium Chloride 1,000 mls @ 100 mls/hr 03/28/17 13:00 03/29/17 11:02 Normal Saline - IV 100 mls/hr ASDIR ALFREDA Administration Lorazepam 0.5 mg 03/28/17 18:35 Ativan Injection - IVPB Q8H PRN ANXIETY Ondansetron HCl 4 mg 03/28/17 18:35 Zofran Injection IVPB Q6H PRN NAUSEA AND/OR VOMITING Oxycodone HCl 5 mg 03/29/17 16:02 Roxicodone - PO Q6H PRN PAIN Pantoprazole Sodium 40 mg 03/30/17 10:00 Protonix - PO DAILY ALFREDA Imaging: - CTAP with no evidence of acute process, no colitis Assessment: 67 year old female with PMHx of multiple b/l knee replacements, MRSA septic arthritis and osteomyelitis (2012), HTN, anxiety, COPD, HCV, hiatal hernia, GI bleeds, gastric ulcers, adrenal insufficiency admitted with persistent vomiting x3 days. Plan: 1. Upper GI bleed - EGD negative for gastric outlet obstruction, + large hiatal hernia - NGT discontinued - Tolerating clears - Change protonix 40mg daily 2. Acute blood loss anemia - Transfuse 1uprbc now - Check cbc 2 hr post infusion 3. Large hiatal hernia - D/w Surgery, pt will need to medical optimization before further plan of surgery as outpt 4. SIRS - Resolved 5. Acute urinary retention - Discontinue chung 6. Adrenal insufficiency - Continue Cortef 50mg q12 - Endocrine following 7. Anxiety - Ativan 0.5mg IVPB prn 8. Dehydration - Improving - Maintain fluids 9. Hyponatremia - D/t dehydration, now resolved 10. Prophylaxis - SCDs bilaterally - Hold all chemical dvt prophylaxis 2/2 possible GI bleed Visit type - Emergency Visit Emergency Visit: Yes ED Registration Date: 03/26/17 Care time: The patient presented to the Emergency Department on the above date and was hospitalized for further evaluation of their emergent condition. - New Patient This patient is new to me today: No - Critical Care Critical Care patient: No
[2017-03-29] MEDS: oxyCODONE HCL 5 MG TABLET PO PRN ×2 (16:57→23:05)
[2017-03-30] MEDS: HYDROCORTISONE SOD SUCCINATE 100 MG/2 ML VIAL IVPB SCH (05:19)
[2017-03-30] MEDS: oxyCODONE HCL 5 MG TABLET PO PRN ×5 (05:27→22:19)
[2017-03-30 06:05] LABS: BASOPHIL 0.1 % (0-2.0); EOSINOPHIL 0.1 % (0-4.5); MCH 27.3 pg (25.7-33.7); MCHC 32.8 g/dl (32.0-36.0); MEAN CELL VOLUME 83.3 fl (80-96); MEAN PLT VOLUME 7.3 fl (7.5-11.1); NEUTROPHILS 65.9 % (42.8-82.8); PLATELET COUNT 205 K/MM3 (134-434); RDW 15.9 % (11.6-15.6); WHITE BLOOD COUNT 5.2 K/mm3 (4.0-10.0)
[2017-03-30 06:30] LABS: ALBUMIN 2.3 g/dl (3.4-5.0); ALK PHOS 63 U/L (45-117); ANION GAP 9 (8-16); BILIRUBIN,TOTAL 0.4 mg/dL (0.2-1.0); CALCIUM 7.9 mg/dL (8.5-10.1); CO2 21 mmol/L (21-32); CREATININE 0.6 mg/dL (0.55-1.02); GLUCOSE,RANDOM 99 mg/dL (74-106); SGOT/AST 16 U/L (15-37); SGPT/ALT 18 U/L (12-78); TOT PROT 4.4 g/dl (6.4-8.2)
[2017-03-30] MEDS ORDERED: ZOLPIDEM TARTRATE 5 MG TABLET PO PRN (09:03)
--- NOTE | 2017-03-30 09:04 | PN ---
Physical Exam: SUBJECTIVE: Patient seen and examined. She feels nauseated this morning. She is tolerating clears, no vomiting. Events: - transfused 1uprbc last night OBJECTIVE: Vital Signs Period Temp Pulse Resp BP Sys/Xiao Pulse Ox Last 24 Hr 97.7 F-98.0 F 62-84 14-18 99-119/56-63 99 PE Neuro: alert, awake, cn 2-12intact HEENT: R IJ cdi Pulm: CTAB CV: s1 s2 rrr no mrg Abd: s nt nd + bs Ext: warm no le edema Laboratory Results - last 24 hr 03/29/17 03/29/17 03/30/17 10:40 15:55 05:15 WBC 5.3 5.2 RBC 2.91 L 3.11 L Hgb 7.9 L 8.5 L Hct 24.8 L 25.9 L MCV 85.4 83.3 MCH 27.1 27.3 MCHC 31.7 L 32.8 RDW 16.3 H 15.9 H Plt Count 222 205 MPV 7.3 L 7.3 L Neutrophils % 65.9 D Lymphocytes % 28.0 D Monocytes % 5.9 Eosinophils % 0.1 Basophils % 0.1 Sodium Potassium Chloride Carbon Dioxide Anion Gap BUN Creatinine Creat Clearance w eGFR Random Glucose Calcium Total Bilirubin AST ALT Alkaline Phosphatase Total Protein Albumin Blood Type O POSITIVE Antibody Screen Negative Crossmatch See Detail 03/30/17 05:15 WBC RBC Hgb Hct MCV MCH MCHC RDW Plt Count MPV Neutrophils % Lymphocytes % Monocytes % Eosinophils % Basophils % Sodium 139 Potassium 3.5 Chloride 109 H Carbon Dioxide 21 Anion Gap 9 BUN 19 H Creatinine 0.6 Creat Clearance w eGFR > 60 Random Glucose 99 Calcium 7.9 L Total Bilirubin 0.4 D AST 16 D ALT 18 Alkaline Phosphatase 63 Total Protein 4.4 L Albumin 2.3 L Blood Type Antibody Screen Crossmatch Active Medications Generic Name Dose Route Start Last Admin Trade Name Freq PRN Reason Stop Dose Admin Albuterol/Ipratropium 1 amp 03/28/17 18:35 Duoneb - NEB QIDR PRN SHORT OF BREATH/WHEEZING Hydrocortisone Sodium Succinate 50 mg 03/28/17 18:00 03/30/17 05:19 Solu-Cortef - IVPB 50 mg Q12H ALFREDA Administration Lorazepam 0.5 mg 03/28/17 18:35 03/30/17 02:02 Ativan Injection - IVPB 0.5 mg Q8H PRN Administration ANXIETY Ondansetron HCl 4 mg 03/28/17 18:35 Zofran Injection IVPB Q6H PRN NAUSEA AND/OR VOMITING Oxycodone HCl 5 mg 03/29/17 16:02 03/30/17 05:27 Roxicodone - PO 5 mg Q6H PRN Administration PAIN Pantoprazole Sodium 40 mg 03/30/17 10:00 Protonix - PO DAILY ALFREDA Zolpidem Tartrate 5 mg 03/30/17 09:03 Ambien - PO HS PRN INSOMNIA Imaging: - CTAP with no evidence of acute process, no colitis Assessment: 67 year old female with PMHx of multiple b/l knee replacements, MRSA septic arthritis and osteomyelitis (2012), HTN, anxiety, COPD, HCV, hiatal hernia, GI bleeds, gastric ulcers, adrenal insufficiency admitted with persistent vomiting x3 days. Plan: 1. Upper GI bleed - Resolving - EGD negative for gastric outlet obstruction, + large hiatal hernia - Protonix 40mg daily [id number] - Advance to soft diet 2. Acute blood loss anemia - Transfused 1uprbc 03/29 3. Large hiatal hernia - D/w Surgery, pt will need to medical optimization before further plan of surgery as outpt 4. SIRS - Resolved 5. Acute urinary retention - Resolved, voiding spontaneously 6. Adrenal insufficiency - Continue Cortef 50mg q12 - Endocrine following 7. Anxiety - Ativan 0.5mg IVPB prn - Ambien 5mg HS prn 8. Dehydration - Resolving - Encourage po intake 9. Hyponatremia - D/t dehydration, now resolved 10. Prophylaxis - SCDs bilaterally - Hold all chemical dvt prophylaxis 2/2 possible GI bleed Dispo - DC home tomorrow, daughter cannot pick her up until then Visit type - Emergency Visit Emergency Visit: Yes ED Registration Date: 03/26/17 Care time: The patient presented to the Emergency Department on the above date and was hospitalized for further evaluation of their emergent condition. - New Patient This patient is new to me today: No - Critical Care Critical Care patient: No
[2017-03-30] MEDS: PANTOPRAZOLE 40 MG TABLET (FP) PO SCH (09:40)
--- NOTE | 2017-03-30 11:43 | PATH ---
Surgical Pathology Report Patient Name: DERRICK ALFONSO [facility]. Rec. #: [id number] /Age/Gender: 1950 (Age: 67) / F Account: [id number] Location: ICU PHARMACEUTICAL SPECIALTY REPRESENTATIVE Taken: 03/29/2017 Received: 03/29/2017 Reported: 03/30/2017 Physicians: Pepe Richard D.O. Specimen(s) Received A: BX DUODENAL BULB B: BX GE JUNCTION Clinical History Abdominal pain Hiatal hernia Final Diagnosis A. DUODENAL BULB, BIOPSY: DUODENAL MUCOSA WITH FOCAL ACTIVE AND MARKED CHRONIC INFLAMMATION AND EXTENSIVE GASTRIC-TYPE METAPLASIA MOST CONSISTENT WITH PEPTIC DUODENITIS IN BACKGROUND OF GASTRIC HETEROTOPIA. B. GE JUNCTION, BIOPSY: COLUMNAR CARDIA-TYPE MUCOSA WITH ACTIVE AND CHRONIC INFLAMMATION. NO SQUAMOUS EPITHELIUM PRESENT. NO INTESTINAL METAPLASIA (VO'S ESOPHAGUS) IDENTIFIED AND EXAMINED MATERIAL. Electronically Signed Neptali Trejo M.D. Gross Description A. Received in formalin, labeled "biopsy duodenal bulb" are 5 soliman, irregular portions of soft tissue ranging from 0.1-0.4 cm in greatest dimension. The specimens are submitted in toto in one cassette. B. Received in formalin, labeled "biopsy GE junction" are 3 soliman, irregular portions of soft tissue ranging from 0.1-0.3 cm in greatest dimension. The specimens are submitted in toto in one cassette. 03/29/201703/29/2017
--- NOTE | 2017-03-30 13:37 | PN ---
GI Progress Note Subjective: No acute events Received 1 U PRBC yesterday No abdominal pain No melena / BRBPR reported - Objective Vital Signs: Vital Signs Temperature 97.9 F 03/30/17 10:09 Pulse Rate 94 H 03/30/17 10:09 Respiratory Rate 03/30/17 10:09 Blood Pressure 107/69 03/30/17 10:09 O2 Sat by Pulse Oximetry (%) 99 03/30/17 10:05 Constitutional: Calm Eyes: No: Sclera Icterus Cardiovascular: Yes: Tachycardia Respiratory: Yes: CTA Bilaterally Gastrointestinal Inspection: No: Distention ...Auscultate: Yes: Normoactive Bowel Sounds ...Palpate: No: Tenderness Neurological: Yes: Alert, Oriented Labs: CBC, BMP 03/30/17 05:15 03/30/17 05:15 INR, PTT INR 1.04 (0.82-1.09) 03/26/17 14:49 Problem List - Problems (1) Paraesophageal hernia Assessment/Plan: Clinically improved On protonix 40mg PO daily Diet advanced Seen by surgery, advised further optimization prior to surgical interventions Discussed her bactrim prophylaxis with hospitalist today. She told me today that she has been on it given her right knee infectious issues Code(s): K44.9 - DIAPHRAGMATIC HERNIA WITHOUT OBSTRUCTION OR GANGRENE
--- NOTE | 2017-03-30 13:59 | PN ---
Progress Note (short form) - Note Progress Note: Feels good No complaints Vital Signs Period Temp Pulse Resp BP Sys/Xiao Pulse Ox Last 24 Hr 97.7 F-98.0 F 62-94 14-17 100-119/56-69 99-99 PE: AOx3 Neck: Supple, No JVD, Rt IJ line in place HEENT: EOMI Lungs: CTA Abd: Benign CVS: S1S@ EXt: No edema Neuro: No focal deficit CMP Sodium 139 mmol/L (136-145) 03/30/17 05:15 Potassium 3.5 mmol/L (3.5-5.1) 03/30/17 05:15 Chloride 109 mmol/L (98-107) H 03/30/17 05:15 Carbon Dioxide 21 mmol/L (21-32) 03/30/17 05:15 Anion Gap 9 (8-16) 03/30/17 05:15 BUN 19 mg/dL (7-18) H 03/30/17 05:15 Creatinine 0.6 mg/dL (0.55-1.02) 03/30/17 05:15 Creat Clearance w eGFR > 60 (>60) 03/30/17 05:15 Random Glucose 99 mg/dL (74-106) 03/30/17 05:15 Lactic Acid 1.9 mmol/L (0.4-2.0) 03/26/17 14:50 Calcium 7.9 mg/dL (8.5-10.1) L 03/30/17 05:15 Phosphorus 3.6 mg/dL (2.5-4.9) D 03/29/17 05:30 Magnesium 1.9 mg/dL (1.8-2.4) 03/29/17 05:30 Total Bilirubin 0.4 mg/dL (0.2-1.0) D 03/30/17 05:15 AST 16 U/L (15-37) D 03/30/17 05:15 ALT 18 U/L (12-78) 03/30/17 05:15 Alkaline Phosphatase 63 U/L (45-117) 03/30/17 05:15 Creatine Kinase 56 IU/L (26-192) 03/26/17 14:40 Troponin I 0.02 ng/ml (0.00-0.05) 03/26/17 14:40 Total Protein 4.4 g/dl (6.4-8.2) L 03/30/17 05:15 Albumin 2.3 g/dl (3.4-5.0) L 03/30/17 05:15 Lipase 123 U/L (73-393) 03/26/17 14:40 Current Medications Generic Name Dose Route Start Last Admin Trade Name Freq PRN Reason Stop Dose Admin Albuterol/Ipratropium 1 amp 03/28/17 18:35 03/30/17 10:35 Duoneb - NEB 1 amp QIDR PRN Administration SHORT OF BREATH/WHEEZING Hydrocortisone Sodium Succinate 50 mg 03/28/17 18:00 03/30/17 05:19 Solu-Cortef - IVPB 50 mg Q12H ALFREDA Administration Lorazepam 0.5 mg 03/28/17 18:35 03/30/17 02:02 Ativan Injection - IVPB 0.5 mg Q8H PRN Administration ANXIETY Ondansetron HCl 4 mg 03/28/17 18:35 03/30/17 09:45 Zofran Injection IVPB 4 mg Q6H PRN Administration NAUSEA AND/OR VOMITING Oxycodone HCl 5 mg 03/30/17 11:30 03/30/17 13:55 Roxicodone - PO 5 mg Q4H PRN Administration PAIN Pantoprazole Sodium 40 mg 03/30/17 10:00 03/30/17 09:40 Protonix - PO 40 mg DAILY ALFREDA Administration Zolpidem Tartrate 5 mg 03/30/17 09:03 Ambien - PO HS PRN INSOMNIA AP: Adrenal Insufficiency: Confirmed with pt's pharmacy Jayme Castillo that pt is on Hydrocortisone 10 mg daily. Last filled in January D/C IV hydrocortisone Hydrocortisone 20 mg in the morning and 10 mg at 2 p.m. Drop in H/H Paraesophageal hernia with retained material Bilateral knee replacements: Rt knee surgery done at [facility] in December this year as per pt. History of MRSA septic arthritis and osteomyelitis HTN Anxiety COPD Gastric ulcers
--- NOTE | 2017-03-30 18:43 | PN ---
Progress Note, Physician History of Present Illness: clinically patient stable no new issues - Current Medication List Current Medications: Active Medications Albuterol/Ipratropium (Duoneb -) 1 amp NEB QIDR PRN PRN Reason: SHORT OF BREATH/WHEEZING Last Admin: 03/30/17 10:35 Dose: 1 amp Hydrocortisone (Cortef -) 20 mg PO DAILY@0800 ALFREDA Hydrocortisone (Cortef -) 10 mg PO DAILY@0800 ALFREDA Lorazepam (Ativan Injection -) 0.5 mg IVPB Q8H PRN PRN Reason: ANXIETY Last Admin: 03/30/17 15:40 Dose: 0.5 mg Ondansetron HCl (Zofran Injection) 4 mg IVPB Q6H PRN PRN Reason: NAUSEA AND/OR VOMITING Last Admin: 03/30/17 09:45 Dose: 4 mg Oxycodone HCl (Roxicodone -) 5 mg PO Q4H PRN PRN Reason: PAIN Last Admin: 03/30/17 18:24 Dose: 5 mg Pantoprazole Sodium (Protonix -) 40 mg PO DAILY ALFREDA Last Admin: 03/30/17 09:40 Dose: 40 mg Zolpidem Tartrate (Ambien -) 5 mg PO HS PRN PRN Reason: INSOMNIA - Objective Vital Signs: Vital Signs Temperature 98.6 F 03/30/17 17:57 Pulse Rate 94 H 03/30/17 17:57 Respiratory Rate 19 03/30/17 17:57 Blood Pressure 96/63 03/30/17 17:57 O2 Sat by Pulse Oximetry (%) 99 03/30/17 10:05 Constitutional: Yes: No Distress, Calm HENT: Yes: Atraumatic Cardiovascular: Yes: S1, S2 Respiratory: Yes: Regular, CTA Bilaterally Gastrointestinal: Yes: Normal Bowel Sounds, Soft Musculoskeletal: Yes: Other Extremities: Yes: WNL Neurological: Yes: Alert, Oriented Psychiatric: Yes: Alert Labs: CBC, BMP 03/30/17 05:15 03/30/17 05:15 INR, PTT INR 1.04 (0.82-1.09) 03/26/17 14:49 Assessment/Plan patient seen discussed in detail with the family Paraesophageal hernia Bilateral knee replacements History of MRSA septic arthritis and osteomyelitis HTN Anxiety COPD HCV Hiatal hernia GI bleeds Gastric ulcers plan continue curret management rest continue as per primary and other consultants
[2017-03-31] MEDS: oxyCODONE HCL 5 MG TABLET PO PRN ×3 (03:14→12:19)
[2017-03-31 06:17] LABS: BASOPHIL 0.3 % (0-2.0); EOSINOPHIL 2.3 % (0-4.5); MCH 27.3 pg (25.7-33.7); MCHC 32.3 g/dl (32.0-36.0); MEAN CELL VOLUME 84.5 fl (80-96); MEAN PLT VOLUME 7.3 fl (7.5-11.1); NEUTROPHILS 42.7 % (42.8-82.8); PLATELET COUNT 217 K/MM3 (134-434); RDW 16.4 % (11.6-15.6); WHITE BLOOD COUNT 5.1 K/mm3 (4.0-10.0)
[2017-03-31 06:44] VITALS: TEMP 98.6
[2017-03-31 06:46] LABS: ALBUMIN 2.1 g/dl (3.4-5.0); ALK PHOS 59 U/L (45-117); ANION GAP 8 (8-16); BILIRUBIN,TOTAL 0.2 mg/dL (0.2-1.0); CALCIUM 7.8 mg/dL (8.5-10.1); CO2 22 mmol/L (21-32); CREATININE 0.8 mg/dL (0.55-1.02); GLUCOSE,RANDOM 89 mg/dL (74-106); MAGNESIUM 1.6 mg/dL (1.8-2.4); SGOT/AST 19 U/L (15-37); SGPT/ALT 18 U/L (12-78); TOT PROT 4.3 g/dl (6.4-8.2)
[2017-03-31] MEDS ORDERED: HYDROCORTISONE 20 MG TABLET PO SCH (08:00)
[2017-03-31] MEDS ORDERED: PT OWN MED DRAWER 7, Y5N ONE (08:44)
[2017-03-31] MEDS: PANTOPRAZOLE 40 MG TABLET (FP) PO SCH (09:03)
[2017-03-31] MEDS ORDERED: MAGNESIUM SULF 50% (8.12 MEQ/2 ML-1 GM VIAL) IVPB ONE (09:46)
--- NOTE | 2017-03-31 09:50 | DS ---
Physical Exam: SUBJECTIVE: Patient seen and examined. She feels weak, but overall improved OBJECTIVE: Vital Signs Period Temp Pulse Resp BP Sys/Xiao Pulse Ox Last 24 Hr 97.6 F-98.6 F 82-94 16-20 95-137/53-69 95-99 PE Neuro: alert, awake, cn 2-12intact HEENT: R IJ cdi Pulm: CTAB CV: s1 s2 rrr no mrg Abd: s nt nd + bs Ext: warm, b/l knee scars healed, R knee > swelling chronically than L Laboratory Results - last 24 hr 03/31/17 03/31/17 05:45 05:45 WBC 5.1 RBC 3.18 L Hgb 8.7 L Hct 26.9 L MCV 84.5 MCH 27.3 MCHC 32.3 RDW 16.4 H Plt Count 217 MPV 7.3 L Neutrophils % 42.7 L D Lymphocytes % 45.2 H D Monocytes % 9.5 Eosinophils % 2.3 D Basophils % 0.3 Sodium 140 Potassium 3.5 Chloride 110 H Carbon Dioxide 22 Anion Gap 8 BUN 16 Creatinine 0.8 D Creat Clearance w eGFR > 60 Random Glucose 89 Calcium 7.8 L Magnesium 1.6 L Total Bilirubin 0.2 D AST 19 ALT 18 Alkaline Phosphatase 59 Total Protein 4.3 L Albumin 2.1 L HOSPITAL COURSE: Date of Admission:03/26/17 Date of Discharge: 03/31/17 Minutes to complete discharge: 36 Discharge Summary Reason For Visit: SEPSIS; GASTROINTESTINAL HEMORRHAGE Current Active Problems GIB (gastrointestinal bleeding) (Acute) Paraesophageal hernia (Acute) Sepsis (Acute) Hospital Course: Initial Hospital Course: Briefly, this 67 year old female with PMHx of multiple b/l knee replacements, MRSA septic arthritis and osteomyelitis (2012), HTN, anxiety, COPD, HCV, hiatal hernia, GI bleeds, gastric ulcers, adrenal insufficiency, presented to the ED with persistent vomiting x3 days. The the vomitus was black, coffee ground colored. She denied any diarrhea but states that her stool is black as well. She reported taking motrin for pain, but does not report taking it recently. T Imaging: - CTAP with no evidence of acute process, no colitis Subsequent Hospital Course/Progress Note/Discharge Summary by a/p: Assessment: 67 year old female with PMHx of multiple b/l knee replacements, MRSA septic arthritis and osteomyelitis (2012), HTN, anxiety, COPD, HCV, hiatal hernia, GI bleeds, gastric ulcers, adrenal insufficiency admitted with persistent vomiting x3 days. Plan: 1. Upper GI bleed - Resolved - EGD negative for gastric outlet obstruction, + large hiatal hernia - Protonix 40mg daily [id number] - GI office follow up for further optimization, consider cyber instructor rec per surgery 2. Acute blood loss anemia - Hgb stable on discharge - Transfused 1uprbc 03/29 3. Large hiatal hernia - D/w Surgery, pt will need to medical optimization before further plan of surgery as outpt 4. SIRS - Resolved 5. Acute urinary retention - Resolved s/p chung insertion 6. Adrenal insufficiency - Cortef 50mg q12 while inpt - Home with hydrocortisone 20mg @ 800 and 10mg @ 1400 - Will need to follow up with Endocrine for cont mgmt 7. multiple b/l knee replacements, MRSA septic arthritis and osteomyelitis (2012 ) - Continue daily Bactrim DS x1 tab, pt has been on this for 2 months, will follow up 8. Anxiety - Ativan 0.5mg IVPB prn - Ambien 5mg HS prn 9. Dehydration - Resolved 10. Hyponatremia - Resolved Dispo - DC home with home services, above meds and follow up - Pt aware and agrees to above plan Condition: Stable - Instructions Diet, Activity, Other Instructions: Please return to the ED for any new, persistent, or worsening symptoms. Follow up with your PCP in 1 week Take home medications as directed Continue Hydrocortisone regimen 20mg at 8:00 am and 10mg at 2pm and follow up with Endocrine Dr. Parra in 1 week Follow up with GI Dr Marte in 1 week for further management and iron studies. Continue taking protonix 40mg daily x8 weeks Referrals: Kaci Alvarez MD [Staff Physician] - Pau Kumar MD [Staff Physician] - 1 Week Alexis Marte MD [Staff Physician] - 1 Week Disposition: VNS/HOME HEALTH CARE - Home Medications Comprehensive Discharge Medication List: Ambulatory Orders Escitalopram Oxalate [Lexapro -] 20 mg PO DAILY #0 tablet 07/11/13 Pantoprazole Sodium [Protonix -] 40 mg PO DAILY #0 tablet.ec 07/11/13 Lorazepam [Ativan] 1 mg PO TID PRN 10/28/13 Oxycodone HCl/Acetaminophen [Percocet 10-325 mg Tablet] 1 - 2 tab PO Q4H PRN 12/08 Zolpidem Tartrate [Ambien] 10 mg PO HS PRN 10/28/13 Hydrocortisone [Cortef -] 10 mg PO DAILY 01/09/17 Metoprolol Succinate [Toprol XL -] 25 mg PO BID 01/09/17 Sulfamethoxazole/Trimethoprim [Bactrim DS -] 1 tab PO DAILY 03/26/17 This patient is new to me today: No Emergency Visit: Yes ED Registration Date: 03/26/17 Care time: The patient presented to the Emergency Department on the above date and was hospitalized for further evaluation of their emergent condition. Critical Care patient: No - Discharge Referral Referred to [facility] Med P.C.: No
[2017-03-31] MEDS ORDERED: SULFAMETHOXAZOLE/TRIMETHOPRIM 800MG/160MG D.S. TABLET PO SCH (10:00)
[2017-03-31 10:32] VITALS: BP 109/72; PULSE 92
[2017-03-31] MEDS ORDERED: HYDROCORTISONE 10 MG TABLET PO SCH (14:00)
[2017-04-01] MEDS ORDERED: HYDROCORTISONE 10 MG TABLET PO SCH (08:00)
== END 2017-03-31 15:04 | disposition home health service (06) | DRG 378 ==
LOC: JER 14:09 → JERBED 18:06 → J4W 20:33 → JICU 03-27 14:39 → J2W 03-28 19:23
PROVIDERS: ADMIT Internal Medicine; ATTEND Nurse Practitioner Acute Care
PROC: 0D9670Z Drainage of Stomach with Drainage Device, Via Natural or Artificial Opening (ICD-10-PCS; principal; 2017-03-27)
PROC: 05HM33Z Insertion of Infusion Device into Right Internal Jugular Vein, Percutaneous Approach (ICD-10-PCS; 2017-03-28)
PROC: 30233N1 Transfusion of Nonautologous Red Blood Cells into Peripheral Vein, Percutaneous Approach (ICD-10-PCS; 2017-03-29)
PROC: 0DB98ZX Excision of Duodenum, Via Natural or Artificial Opening Endoscopic, Diagnostic (ICD-10-PCS; 2017-03-29)
DX: K92.2 Gastrointestinal hemorrhage, unspecified (principal); E27.49 Other adrenocortical insufficiency; E87.1 Hypo-osmolality and hyponatremia; R65.10 Systemic inflammatory response syndrome (SIRS) of non-infectious origin without acute organ dysfunction; D62 Acute posthemorrhagic anemia; I10 Essential (primary) hypertension; J44.9 Chronic obstructive pulmonary disease, unspecified; F41.8 Other specified anxiety disorders; K44.9 Diaphragmatic hernia without obstruction or gangrene; E86.0 Dehydration; F14.10 Cocaine abuse, uncomplicated; R00.0 Tachycardia, unspecified; R33.8 Other retention of urine; K27.9 Peptic ulcer, site unspecified, unspecified as acute or chronic, without hemorrhage or perforation; Z87.891 Personal history of nicotine dependence; Z86.19 Personal history of other infectious and parasitic diseases; Z86.14 Personal history of Methicillin resistant Staphylococcus aureus infection; Z96.653 Presence of artificial knee joint, bilateral
CPT/HCPCS: 36415; 36430; 71010-TC; 74000-TC; 74176-TC; 80048; 80053; 81003; 82271; 82272; 82803; 83605; 83690; 83735; 84100; 84484; 85025; 85027; 85610; 85730; 86850; 86900; 86901; 86922; 87040; 87086; 88305-TC; 93005; 93010; 93306-TC; 94640; 99285-25; P9038; P9058

== ENCOUNTER 2017-09-26 15:55 | Inpatient (IN) | payer OTHER ==
--- NOTE | 2017-09-26 16:28 | PDOC ---
History of Present Illness - General History Source: Patient Exam Limitations: No Limitations - History of Present Illness Initial Comments: 09/26/17 16:52 The patient is a 67 year old female, with a significant past medical history of MRSA, chronic renal insufficiency, Hepatitis C, asthma, COPD, anxiety, anemia, osteoarthritis, and mitral valve prolapse, who presents to the emergency department accompanied by daughter s/p multiple unwitnessed falls since yesterday. As per patients daughter, the patient was last known well at approximately 17:00, when she brought her dinner. This morning when the patients home health aid arrived, the aid noticed the patient had ecchymosis around the left eye and across her hip and shoulders. Patient reports associated shoulder pain bilaterally. As per daughter, patient last took Ambien last night, and it is possible that the patient overdosed because she has not been sleeping well over the past couple of days. Since her fall patient has been ambulatory with assistance. Unknown if patient had any LOC, changes in vision, headache, dizziness, lightheadedness, neck or back pain. Patients history is limited due to clinical condition. Patient is not on any blood thinners. Allergies: NKDA Past Surgical History: Bilateral knee replacements, appendectomy, hernia repair Social History: Former smoker. No recreational drug use. PCP: Dr. Kaci Alvarez <Josefa Hernandez - Last Filed: 09/26/17 20:04> <Diamond Lion - Last Filed: 09/26/17 20:30> - General Chief Complaint: Injury Stated Complaint: FALL Time Seen by Provider: 09/26/17 16:13 Past History <Josefa Hernandez - Last Filed: 09/26/17 20:04> - Past Medical History Anemia: Yes Asthma: Yes Cardiac Disorders: Yes (Mitral Valve Prolapse) COPD: Yes GI Disorders: Yes (GASTRIC ULCER) HTN: Yes Psychiatric Problems: Yes (anxiety) - Surgical History Abdominal Surgery: Yes (HERNIA REPAIR FOR RUPTURED HERNIA) Appendectomy: Yes Orthopedic Surgery: (FAITH KNEE REPLACEMENT) - Reproductive History Cervical CA: No Dysfunctional Uterine Bleeding: No Ectopic : No Endometrial CA: No Polycystic Ovaries: No Tubal Ligation: No - Immunization History Td Vaccination: Yes Immunization Up to Date: Yes - Suicide/Smoking/Psychosocial Hx Smoking Status: Yes Smoking History: Former smoker Years of Tobacco Use: 20 Have you smoked in the past 12 months: No Number of Cigarettes Smoked Daily: 2 If you are a former smoker, when did you quit?: may 2013 Cigars Per Day: 0 'Breaking Loose' booklet given: 06/17/13 Hx Alcohol Use: No Drug/Substance Use Hx: No Substance Use Type: None Hx Substance Use Treatment: No <Diamond Lion - Last Filed: 09/26/17 20:30> - Past Medical History Allergies/Adverse Reactions: Allergies Allergy/AdvReac Type Severity Reaction Status Date / Time No Known Drug Allergies Allergy Verified 09/26/17 17:57 tape AdvReac Uncoded 09/26/17 16:27 Home Medications: Ambulatory Orders Escitalopram Oxalate [Lexapro -] 20 mg PO DAILY #0 tablet 07/11/13 Lorazepam [Ativan] 1 mg PO TID PRN 10/28/13 Oxycodone HCl/Acetaminophen [Percocet 10-325 mg Tablet] 1 - 2 tab PO Q4H PRN 12/08 Zolpidem Tartrate [Ambien] 10 mg PO HS PRN 10/28/13 Hydrocortisone [Cortef -] 10 mg PO DAILY 01/09/17 Metoprolol Succinate [Toprol XL -] 25 mg PO BID 01/09/17 Sulfamethoxazole/Trimethoprim [Bactrim DS -] 1 tab PO DAILY 03/26/17 Ondansetron HCl [Zofran] 4 mg PO Q6H #30 tablet 03/31/17 Pantoprazole Sodium [Protonix -] 40 mg PO DAILY #60 tablet.ec 03/31/17 Review of Systems - Review of Systems Able to Perform ROS?: Yes (Limited) Comments:: 09/26/17 16:52 GENERAL/CONSTITUTIONAL: No fever or chills. No weakness. HEAD, EYES, EARS, NOSE AND THROAT: Left eye ecchymosis. No change in vision. No ear pain or discharge. No sore throat. GASTROINTESTINAL: No nausea, vomiting, diarrhea or constipation. GENITOURINARY: No dysuria, frequency, or change in urination. CARDIOVASCULAR: No chest pain or shortness of breath. RESPIRATORY: No cough, wheezing, or hemoptysis. MUSCULOSKELETAL: Yes bilateral shoulder ecchymosis. No neck or back pain. SKIN: No rash NEUROLOGIC: No headache, vertigo, loss of consciousness, or change in strength/ sensation. HEMATOLOGIC/LYMPHATIC: No anemia, easy bleeding, or history of blood clots. <HernandezDeliadelvinruialida - Last Filed: 09/26/17 20:04> *Physical Exam - Vital Signs Last Vital Signs Temp Pulse Resp BP Pulse Ox 98.2 F 66 16 96/66 98 09/26/17 16:28 09/26/17 16:28 09/26/17 16:28 09/26/17 16:28 09/26/17 16:28 - Physical Exam Comments: 09/26/17 16:57 Constitutional: Awake, alert, oriented to self. Lethargic Head: Normocephalic. Eyes: Pinpoint pupils. Ecchymosis above the left eyebrow. Conjunctivae are not pale. ENT: Mucous membranes are moist and intact. Posterior pharynx without exudates or erythema. Uvula midline. Neck: Supple. Full ROM. No lymphadenopathy. Cardiovascular: Regular rate. Regular rhythm. S1, S2 regular. Distal pulses are 2+ and symmetric. Pulmonary/Chest: No evidence of respiratory distress. Clear to auscultation bilaterally No wheezing, rales or rhonchi. No chest wall tenderness. Abdominal: Soft and non-distended. There is no tenderness. No rebound, guarding or rigidity. No organomegaly. No palpable masses. Good bowel sounds. Back: No CVA tenderness. Musculoskeletal: Ecchymosis to the left shoulder and left lateral hip. No edema. No cyanosis. No clubbing. Full range of motion in all extremities. No calf tenderness. Radial/pedal pulses are intact and 2+ bilaterally Skin: Skin is warm and dry. No petechiae. Neurological: Alert and oriented to person. Cranial nerves II-XII are grossly intact. Strength is grossly symmetric. No sensory deficits. <HernandezDeliaalejandro - Last Filed: 09/26/17 20:04> ED Treatment Course - LABORATORY CBC & Chemistry Diagram: 09/26/17 17:32 09/26/17 17:32 - RADIOLOGY Radiograph Interpretation: 09/26/17 19:51 EXAM: Head CT INTERPRETED BY: Dr. Dong REVIEWED BY: Dr. Lion IMPRESSION: No acute intracranial hemorrhage, mass effects, midline shift or hydrocephalus. Mild microvascular ischemic changes in the cerebral white matter. EXAM: Cervical Spine CT INTERPRETED BY: Dr. Dong REVIEWED BY: Dr. Lion IMPRESSION:1. No cervical spine fracture. 2. Grade 1 anterolisthesis of C4 on C5 and trace retrolisthesis of C5 on C6 are presumably chronic and degenerative. 3. Cervical spondylosis as described above. 4. Mild distention of the upper esophagus with food contents could be physiologic change post recent P.O. ingestion. Please correlate clinically. A nonemergent, outpatient esophagram may be obtained to evaluate esophageal transit. <Josefa Hernandez - Last Filed: 09/26/17 20:04> - LABORATORY CBC & Chemistry Diagram: 09/26/17 17:32 09/26/17 17:32 <Diamond Lion - Last Filed: 09/26/17 20:30> Medical Decision Making - Medical Decision Making 09/26/17 19:53 First call placed to Dr. Alvarez at 19:56. Awaiting call back. Case discussed with Dr. Alvarez at 19:58. Requests patient be admitted to Dr. Ortega. First call placed to Dr. Stuart at 20:05. Awaiting call back. <Josefa Hernandez - Last Filed: 09/26/17 20:04> - Medical Decision Making 09/26/17 19:41 a/p: 67yo female with generalized weakness, falls, lethargy -poss overdose of ambien, benzos, oxycodone -will check labs, urine -xrays -ct -ekg -will monitor and reassess 09/26/17 19:42 hgb 7.2 elevated CPK - concern for mild rhabdo ivf hydration running 09/26/17 20:00 verbal consent obtained from Yesica (daughter) over the phone consent on the chart case discussed with PMD dr. montana - requests admission go to Dr. Stuart 09/26/17 20:[address] Stuart who accepts the patient to her service <Diamond Lion - Last Filed: 09/26/17 20:30> *DC/Admit/Observation/Transfer - Attestations Scribe Attestion: 09/26/17 16:54 Documentation prepared by Josefa Hernandez, acting as medical supply technician for Diamond Lion DO. <Josefa Hernandez - Last Filed: 09/26/17 20:04> - Discharge Dispostion Admit: Yes - Attestations Physician Attestion: 09/26/17 20:30 I, Dr. Diamond Lion DO, attest that this document has been prepared under my direction and personally reviewed by me in its entirety. I further attest, that it accurately reflects all work, treatment, procedures and medical decision -making performed by me. <Diamond Lion - Last Filed: 09/26/17 20:30> Diagnosis at time of Disposition: Rhabdomyolysis, Symptomatic anemia, Fall, Accidental drug overdose - Discharge Dispostion Condition at time of disposition: Fair - Referrals Referrals: Kaci Alvarez MD [Primary Care Provider] - - Patient Instructions - Post Discharge Activity
[2017-09-26] MEDS ORDERED: SODIUM CHLORIDE 0.9% 1000 ML INFUS.BAG IV ONE (16:30)
[2017-09-26 17:40] LABS: BASO % 1.1 % (0-2.0); EOS % 2.2 % (0-4.5); HEMOGLOBIN 7.3 GM/dL (10.7-15.3); MCH 22.4 pg (25.7-33.7); MCHC 30.2 g/dl (32.0-36.0); MEAN CELL VOLUME 74.3 fl (80-96); MEAN PLT VOLUME 8.1 fl (7.5-11.1); MONO % 9.1 % (3.8-10.2); NEUT % 65.6 % (42.8-82.8); PLATELET COUNT 241 K/MM3 (134-434); RBC 3.23 M/mm3 (3.60-5.2); RDW 18.8 % (11.6-15.6); WHITE BLOOD COUNT 4.2 K/mm3 (4.0-10.0)
[2017-09-26 18:00] LABS: URINE APPEARANCE CLEAR; URINE BILIRUBIN NEGATIVE (NEGATIVE); URINE BLOOD 1+ (NEGATIVE); URINE COLOR DKYELLOW; URINE GLUCOSE (UA) NEGATIVE (NEGATIVE); URINE KETONE NEGATIVE (NEGATIVE); URINE LEUK ESTERASE NEGATIVE (NEGATIVE); URINE NITRITE NEGATIVE (NEGATIVE); URINE PROTEIN NEGATIVE (NEGATIVE)
[2017-09-26 18:22] LABS: ALBUMIN 3.1 g/dl (3.4-5.0); ANION GAP 8 (8-16); BILIRUBIN,TOTAL 0.6 mg/dL (0.2-1.0); BLOOD UREA NITROGEN 20 mg/dL (7-18); CALCIUM 7.8 mg/dL (8.5-10.1); CHLORIDE 106 mmol/L (98-107); CO2 23 mmol/L (21-32); CREATININE 0.9 mg/dL (0.55-1.02); GLUCOSE,RANDOM 83 mg/dL (74-106); LIPASE 50 U/L (73-393); MAGNESIUM 1.9 mg/dL (1.8-2.4); POTASSIUM 3.9 mmol/L (3.5-5.1); SGOT/AST 151 U/L (15-37); SGPT/ALT 36 U/L (12-78); SODIUM 137 mmol/L (136-145); TOT PROT 6.2 g/dl (6.4-8.2)
[2017-09-26 18:22] LABS: URINE MUCUS RARE
[2017-09-26 18:34] LABS: ALK PHOS 83 U/L (45-117)
--- NOTE | 2017-09-26 21:33 | HP ---
Admitting History and Physical - Admission History of Present Illness: The patient is a 67 year old female, with a significant past medical history of MRSA, chronic renal insufficiency, Hepatitis C, asthma, COPD, anxiety, anemia, osteoarthritis, and mitral valve prolapse, who presents to the emergency department accompanied by daughter s/p multiple unwitnessed falls since yesterday. As per patients daughter, the patient was last known well at approximately 17:00, when she brought her dinner. This morning when the patients home health aid arrived, the aid noticed the patient had ecchymosis around the left eye and across her hip and shoulders. Patient reports associated shoulder pain bilaterally. As per daughter, patient last took Ambien last night, and it is possible that the patient overdosed because she has not been sleeping well over the past couple of days. Since her fall patient has been ambulatory with assistance. Unknown if patient had any LOC, changes in vision, headache, dizziness, lightheadedness, neck or back pain. Patients history is limited due to clinical condition. Patient is not on any blood thinners. 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 osteomyelitis) - Past Surgical History Past Surgical History: Yes: Hysterectomy, Joint Replacement (Ttl Knee replacement x 2 right knee with 2 right knee revisions, Ttl Left knee replacement. MRSA infection) - Smoking History Smoking history: Former smoker Have you smoked in the past 12 months: No Aproximately how many cigarettes per day: 2 If you are a former smoker, when did you quit?: may 2013 - Alcohol/Substance Use Hx Alcohol Use: No - Social History Usual Living Arrangement: Yes: Alone ADL: Independent History of Recent Travel: No Home Medications - Allergies Allergies/Adverse Reactions: Allergies Allergy/AdvReac Type Severity Reaction Status Date / Time No Known Drug Allergies Allergy Verified 09/26/17 17:57 tape AdvReac Uncoded 09/26/17 16:27 - Home Medications Home Medications: Ambulatory Orders Escitalopram Oxalate [Lexapro -] 20 mg PO DAILY #0 tablet 07/11/13 Lorazepam [Ativan] 1 mg PO TID PRN 10/28/13 Oxycodone HCl/Acetaminophen [Percocet 10-325 mg Tablet] 1 - 2 tab PO Q4H PRN 12/08 Zolpidem Tartrate [Ambien] 10 mg PO HS PRN 10/28/13 Hydrocortisone [Cortef -] 10 mg PO DAILY 01/09/17 Metoprolol Succinate [Toprol XL -] 25 mg PO BID 01/09/17 Sulfamethoxazole/Trimethoprim [Bactrim DS -] 1 tab PO DAILY 03/26/17 Ondansetron HCl [Zofran] 4 mg PO Q6H #30 tablet 03/31/17 Pantoprazole Sodium [Protonix -] 40 mg PO DAILY #60 tablet.ec 03/31/17 Review of Systems Findings/Remarks: patient unable to recall events found by aide this am with bruises Physical Examination Vital Signs: Vital Signs Temperature 98.2 F 09/26/17 16:28 Pulse Rate 65 09/26/17 17:47 Respiratory Rate 16 09/26/17 17:47 Blood Pressure 99/50 09/26/17 17:47 O2 Sat by Pulse Oximetry (%) 98 09/26/17 17:47 Labs: CBC, BMP 09/26/17 17:32 09/26/17 17:32 Problem List - Problems (1) Accidental drug overdose Code(s): T50.901A - POISONING BY UNSP DRUG/MEDS/BIOL SUBST, ACCIDENTAL, INIT (2) Fall Code(s): W19.XXXA - UNSPECIFIED FALL, INITIAL ENCOUNTER (3) Rhabdomyolysis Code(s): M62.82 - RHABDOMYOLYSIS (4) Symptomatic anemia Code(s): D64.9 - ANEMIA, UNSPECIFIED (5) COPD (chronic obstructive pulmonary disease) Code(s): J44.9 - CHRONIC OBSTRUCTIVE PULMONARY DISEASE, UNSPECIFIED Qualifiers: COPD type: unspecified COPD Qualified Code(s): J44.9 - Chronic obstructive pulmonary disease, unspecified (6) GIB (gastrointestinal bleeding) Code(s): K92.2 - GASTROINTESTINAL HEMORRHAGE, UNSPECIFIED Qualifiers: GI bleed type/associated pathology: unspecified gastrointestinal hemorrhage type Qualified Code(s): K92.2 - Gastrointestinal hemorrhage, unspecified
[2017-09-26] MEDS ORDERED: DOCUSATE SODIUM 100 MG CAPSULE (FP) PO ONE (22:19)
[2017-09-26] MEDS ORDERED: PANTOPRAZOLE 40 MG TABLET (FP) ONE (22:19)
[2017-09-26] MEDS: SODIUM CHLORIDE 1,000 ML IV SCH (22:21)
[2017-09-26] MEDS: PANTOPRAZOLE 40 MG TABLET (FP) PO SCH (22:21)
[2017-09-26] MEDS: DOCUSATE SODIUM 100 MG CAPSULE (FP) PO SCH (22:21)
[2017-09-27 05:22] VITALS: BMI 27.6
[2017-09-27] MEDS: SULFAMETHOXAZOLE/TRIMETHOPRIM 800MG/160MG D.S. TABLET PO SCH (09:37)
[2017-09-27] MEDS: ESCITALOPRAM OXALATE 20 MG TABLET (FP) PO SCH (09:37)
[2017-09-27] MEDS: PANTOPRAZOLE 40 MG TABLET (FP) PO SCH ×2 (09:37→22:06)
[2017-09-27] MEDS: DOCUSATE SODIUM 100 MG CAPSULE (FP) PO SCH ×2 (09:37→22:06)
--- NOTE | 2017-09-27 11:02 | EKG ---
Test Reason : Blood Pressure : / mmHG Vent. Rate : 065 BPM Atrial Rate : 065 BPM P-R Int : 142 ms QRS Dur : 084 ms QT Int : 438 ms P-R-T Axes : 006 007 030 degrees QTc Int : 455 ms NORMAL SINUS RHYTHM ANTERIOR INFARCT , AGE UNDETERMINED ABNORMAL ECG WHEN COMPARED WITH ECG OF 26-MAR-2017 14:22, VENT. RATE HAS DECREASED BY 53 BPM ANTERIOR INFARCT IS NOW PRESENT NONSPECIFIC T WAVE ABNORMALITY, IMPROVED IN INFERIOR LEADS NONSPECIFIC T WAVE ABNORMALITY NOW EVIDENT IN ANTERIOR LEADS Confirmed by GIOVANNI KENNEDY MD ([id number]) on 09/27/2017 11:01:36 AM Referred By: Confirmed By:GIOVANNI KENNEDY MD
[2017-09-27 11:19] LABS: HEMATOCRIT 25.1 % (32.4-45.2); HEMOGLOBIN 7.8 GM/dL (10.7-15.3); MCH 23.3 pg (25.7-33.7); MEAN CELL VOLUME 75.1 fl (80-96); MEAN PLT VOLUME 7.5 fl (7.5-11.1); PLATELET COUNT 229 K/MM3 (134-434); RBC 3.34 M/mm3 (3.60-5.2); RDW 18.3 % (11.6-15.6); WHITE BLOOD COUNT 3.6 K/mm3 (4.0-10.0)
[2017-09-27 11:58] LABS: ALBUMIN 2.8 g/dl (3.4-5.0); ALK PHOS 72 U/L (45-117); ANION GAP 9 (8-16); BILIRUBIN,TOTAL 0.8 mg/dL (0.2-1.0); BLOOD UREA NITROGEN 14 mg/dL (7-18); CALCIUM 7.9 mg/dL (8.5-10.1); CHLORIDE 111 mmol/L (98-107); CO2 20 mmol/L (21-32); CREATININE 0.6 mg/dL (0.55-1.02); GLUCOSE,RANDOM 78 mg/dL (74-106); POTASSIUM 3.8 mmol/L (3.5-5.1); SGOT/AST 119 U/L (15-37); SGPT/ALT 34 U/L (12-78); SODIUM 140 mmol/L (136-145); TOT PROT 5.6 g/dl (6.4-8.2)
--- NOTE | 2017-09-27 11:59 | PN ---
Progress Note (short form) - Note Progress Note: Pt found lying in bed. States that she wants to go home. No pain noted or reported. Vital Signs Period Temp Pulse Resp BP Sys/Xiao Pulse Ox Last 24 Hr 97.5 F-98.2 F 59-66 16-18 93-115/50-70 97-99 HEENT- NL. DSD intact over skin abscess on lt side of forehead. Neck- Supple Lungs- CTAB Heart- S1/S2 Abd- Soft, pos BS x 4, NT Ext- Neg LE edema CBC, BMP 09/27/17 10:55 Active Medications Acetaminophen (Tylenol -) 650 mg PO Q6H PRN PRN Reason: MILD PAIN Docusate Sodium (Colace -) 200 mg PO BID [facility] Last Admin: 09/27/17 09:37 Dose: 200 mg Escitalopram Oxalate (Lexapro -) 20 mg PO DAILY [facility] Last Admin: 09/27/17 09:37 Dose: 20 mg Hydrocortisone (Cortef -) 10 mg PO DAILY [facility] Sodium Chloride (Normal Saline -) 1,000 mls @ 150 mls/hr IV ASDIR [facility] Last Admin: 09/26/17 22:21 Dose: 150 mls/hr Lorazepam (Ativan -) 1 mg PO BID PRN PRN Reason: ANXIETY Oxycodone HCl (Roxicodone -) 10 mg PO Q6H PRN PRN Reason: PAIN LEVEL 4 - 6 Pantoprazole Sodium (Protonix -) 40 mg PO BID [facility] Last Admin: 09/27/17 09:37 Dose: 40 mg Trimethoprim/Sulfamethoxazole (Bactrim Ds -) 1 each PO DAILY [facility] Last Admin: 09/27/17 09:37 Dose: 1 each Zolpidem Tartrate (Ambien -) 5 mg PO HS PRN PRN Reason: INSOMNIA #Rhabdomylosis Monitor CK levels # Insomnia Continue Ambien 5 mg PO q hs PRN #Anxiety Continue Lorazepam 1 mg PO BID PRN #Anemia Hgb 7.8 Refer to GI for consult/ GI bleed? #Skin Abscess/ Hx of MRSA Refer to ID for consult Continue Bactrim daily Problem List - Problems (1) Accidental drug overdose Code(s): T50.901A - POISONING BY UNSP DRUG/MEDS/BIOL SUBST, ACCIDENTAL, INIT (2) Fall Code(s): W19.XXXA - UNSPECIFIED FALL, INITIAL ENCOUNTER (3) Rhabdomyolysis Code(s): M62.82 - RHABDOMYOLYSIS (4) Symptomatic anemia Code(s): D64.9 - ANEMIA, UNSPECIFIED (5) COPD (chronic obstructive pulmonary disease) Code(s): J44.9 - CHRONIC OBSTRUCTIVE PULMONARY DISEASE, UNSPECIFIED Qualifiers: COPD type: unspecified COPD Qualified Code(s): J44.9 - Chronic obstructive pulmonary disease, unspecified (6) GIB (gastrointestinal bleeding) Code(s): K92.2 - GASTROINTESTINAL HEMORRHAGE, UNSPECIFIED Qualifiers: GI bleed type/associated pathology: unspecified gastrointestinal hemorrhage type Qualified Code(s): K92.2 - Gastrointestinal hemorrhage, unspecified Laboratory Last Values WBC 3.6 K/mm3 (4.0-10.0) L 09/27/17 10:55 RBC 3.34 M/mm3 (3.60-5.2) L 09/27/17 10:55 Hgb 7.8 GM/dL (10.7-15.3) L 09/27/17 10:55 Hct 25.1 % (32.4-45.2) L 09/27/17 10:55 MCV 75.1 fl (80-96) L 09/27/17 10:55 MCH 23.3 pg (25.7-33.7) L 09/27/17 10:55 MCHC 31.0 g/dl (32.0-36.0) L 09/27/17 10:55 RDW 18.3 % (11.6-15.6) H 09/27/17 10:55 Plt Count 229 K/MM3 (134-434) 09/27/17 10:55 MPV 7.5 fl (7.5-11.1) 09/27/17 10:55 Neutrophils % 65.6 % (42.8-82.8) D 09/26/17 17:32 Lymphocytes % 22.0 % (8-40) D 09/26/17 17:32 Monocytes % 9.1 % (3.8-10.2) 09/26/17 17:32 Eosinophils % 2.2 % (0-4.5) 09/26/17 17:32 Basophils % 1.1 % (0-2.0) D 09/26/17 17:32 PTT (Actin FS) 28.0 SECONDS (26.9-34.4) 09/26/17 17:32 Sodium 140 mmol/L (136-145) 09/27/17 10:55 Potassium 3.8 mmol/L (3.5-5.1) 09/27/17 10:55 Chloride 111 mmol/L (98-107) H 09/27/17 10:55 Carbon Dioxide 20 mmol/L (21-32) L 09/27/17 10:55 Anion Gap 9 (8-16) 09/27/17 10:55 BUN 14 mg/dL (7-18) 09/27/17 10:55 Creatinine 0.6 mg/dL (0.55-1.02) 09/27/17 10:55 Creat Clearance w eGFR > 60 (>60) 09/27/17 10:55 Random Glucose 78 mg/dL (74-106) 09/27/17 10:55 Lactic Acid 0.8 mmol/L (0.0-2.0) 09/26/17 17:32 Calcium 7.9 mg/dL (8.5-10.1) L 09/27/17 10:55 Magnesium 1.9 mg/dL (1.8-2.4) 09/26/17 17:32 Total Bilirubin 0.8 mg/dL (0.2-1.0) D 09/27/17 10:55 AST 119 U/L (15-37) H 09/27/17 10:55 ALT 34 U/L (12-78) 09/27/17 10:55 Alkaline Phosphatase 72 U/L (45-117) 09/27/17 10:55 Creatine Kinase 3628 IU/L (26-192) H 09/26/17 17:32 Creatine Kinase Index 0.8 % (0.0-5.0) 09/26/17 17:32 CK-MB (CK-2) 30.270 ng/mL (0.5-3.6) H 09/26/17 17:32 Troponin I 0.02 ng/ml (0.00-0.05) 09/26/17 17:32 Total Protein 5.6 g/dl (6.4-8.2) L 09/27/17 10:55 Albumin 2.8 g/dl (3.4-5.0) L 09/27/17 10:55 Lipase 50 U/L (73-393) L 09/26/17 17:32 Urine Color Dkyellow 09/26/17 17:50 Urine Appearance Clear 09/26/17 17:50 Urine pH 5.0 (5.0-8.0) 09/26/17 17:50 Ur Specific [place] 1.019 (1.001-1.035) 09/26/17 17:50 Urine Protein Negative (NEGATIVE) 09/26/17 17:50 Urine Glucose (UA) Negative (NEGATIVE) 09/26/17 17:50 Urine Ketones Negative (NEGATIVE) 09/26/17 17:50 Urine Blood 1+ (NEGATIVE) H 09/26/17 17:50 Urine Nitrite Negative (NEGATIVE) 09/26/17 17:50 Urine Bilirubin Negative (NEGATIVE) 09/26/17 17:50 Urine Urobilinogen 2.0 mg/dL (0.2-1.0) H 09/26/17 17:50 Ur Leukocyte Esterase Negative (NEGATIVE) 09/26/17 17:50 Urine WBC (Auto) 1 /hpf (3-5) 09/26/17 17:50 Urine RBC (Auto) <1 /hpf (0-3) 09/26/17 17:50 Urine Mucus Rare 09/26/17 17:50 Blood Type O POSITIVE 09/26/17 17:32 Antibody Screen Negative 09/26/17 17:32 Crossmatch See Detail 09/26/17 17:32
[2017-09-27] MEDS: HYDROCORTISONE 10 MG TABLET PO SCH (12:25)
[2017-09-27] MEDS: oxyCODONE HCL 5 MG TABLET PO PRN (12:26)
--- NOTE | 2017-09-27 15:19 | CONSULT ---
Consult Consult Specialty:: PM&R - History of Present Illness Chief Complaint: leg buckled History of Present Illness: This is a 67 year old woman with a medical history of anxiety, MVP, asthma, COPD , hiatal hernia, PUD, HCV, chronic renal insufficiency, OA s/p B TKR, MRSA infection, anemia, who presented to the ED 09/26/17 following a fall. She reported that her L leg suddenly buckled and she fell, hitting her head. Per the chart, she had sustained multiple falls which was possibly due to sleeping pills. She was also found to have rhabdomyolysis for which she is receiving IV fluids. CT neck showed grade 1 L4 on L5 anterolisthesis; CXR showed mild pulmonary congestion, CT head showed mild chronic ischemic white matter changes without acute pathology, and L hip/ pelvic XR show chronic insufficiency fractures with B mild hip DJD. Physiatry is being reconsulted for further recommendations. 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 osteomyelitis) - Past Surgical History Past Surgical History: Yes: Hysterectomy, Joint Replacement (Ttl Knee replacement x 2 right knee with 2 right knee revisions, Ttl Left knee replacement. MRSA infection) - Alcohol/Substance Use Hx Alcohol Use: No - Smoking History Smoking history: Former smoker Have you smoked in the past 12 months: No Aproximately how many cigarettes per day: 2 If you are a former smoker, when did you quit?: may 2013 - Social History ADL: Independent (lives in senior building without stairs, ambulated with SC) History of Recent Travel: No Home Medications - Allergies Allergies/Adverse Reactions: Allergies Allergy/AdvReac Type Severity Reaction Status Date / Time No Known Drug Allergies Allergy Verified 09/26/17 17:57 tape AdvReac Uncoded 09/26/17 16:27 - Home Medications Home Medications: Ambulatory Orders Escitalopram Oxalate [Lexapro -] 20 mg PO DAILY #0 tablet 07/11/13 Lorazepam [Ativan] 1 mg PO TID PRN 10/28/13 Oxycodone HCl/Acetaminophen [Percocet 10-325 mg Tablet] 1 - 2 tab PO Q4H PRN 12/08 Zolpidem Tartrate [Ambien] 10 mg PO HS PRN 10/28/13 Hydrocortisone [Cortef -] 10 mg PO DAILY 01/09/17 Metoprolol Succinate [Toprol XL -] 25 mg PO BID 01/09/17 Sulfamethoxazole/Trimethoprim [Bactrim DS -] 1 tab PO DAILY 03/26/17 Ondansetron HCl [Zofran] 4 mg PO Q6H #30 tablet 03/31/17 Pantoprazole Sodium [Protonix -] 40 mg PO DAILY #60 tablet.ec 03/31/17 Review of Systems Findings/Remarks: denies fevers, chills, changes in vision/ hearing/ mood, CP, SOB, abdominal pain , nausea, vomiting, constipation, diarrhea, dysuria, hematuria, numbness/ paresthesias x4 extremities, or muscle/ joint pain. She notes diffuse weakness Physical Exam Vital Signs: Vital Signs Temperature 98.3 F 09/27/17 14:28 Pulse Rate 80 09/27/17 14:28 Respiratory Rate 18 09/27/17 14:28 Blood Pressure 109/62 09/27/17 14:28 O2 Sat by Pulse Oximetry (%) 97 09/27/17 05:27 Musculoskeletal: Yes: Other (General: calm elderly F lying in bed NAD on supplemental O2, AAO x3 HEENT: NC with band-aid over L eyebrow, EOMI, OP clear N/M: CN II-XII grossly Intact; B shoulder flexion to 120 degrees, 4/5 BUE / BLE except for 3/5 R KE including VMO and VLO, and 4-/5 L VMO; Pinprick decreased throughout body including facec Extremities: no BLE pitting edema, no B calf tenderness, well- healed B knee surgical/ TKR incisions) Labs: CBC, BMP 09/27/17 10:55 09/27/17 10:55 Imaging - Results Chest X-ray: Report Reviewed (as per HPI) X-ray: Report Reviewed (L hip/ pelvic as per HPI) Cat Scan: Report Reviewed (CT C-spine as per HPI) Assessment/Plan Impression: 1) Deficits mobility/ ADLs 2) Deconditioning 3) Gait abnormality 4) Multiple falls possibly 2/2 medications 5) Rhabdomyolysis on IV fluids 6) Chronic pelvic insufficiency fx 7) B hip OA and B knee OA s/p B TKR 8) Anemia 9) hx anxiety 10) hx MVP 11) hx asthma, COPD 12) hx hiatal hernia, PUD 13) hx HCV 14) Chronic renal insufficiency 15) hx MRSA infection 16) Overweight 17) Up to date flu shot/ pneumovax Recommendations: 1) PT for stretching strengthening ROM balance and functional mobility 2) Falls, safety precautions 3) Cardiopulmonary precautions 4) DVT pxx: off AC due to falls, consider SCDs 5) Denies constipation on current bowel regimen 6) Skin protection: float heels, frequent turning 7) Nutrition consult for overweight 8) Monitor CBC given anemia 9) Monitor BMP given renal function 10) Discharge planning: we discussed the possibility of short- term inpatient rehabilitation, to which she is amenable. Depending on her progress in PT, she will need to either go to [facility] versus home with home services. Thank you for this referral.
--- NOTE | 2017-09-27 17:14 | CON.GI ---
Consult Consult Specialty:: GI: Dr. Richard covering for Dr. Zamarripa Referred by:: Dr. Kelly Stuart Reason for Consultation:: Anemia - History of Present Illness Chief Complaint: Falls at home History of Present Illness: 67F admitted through [facility] for evaluation of falls at home. Ms. Lorenz is somewhat of a poor historian at times. She explains that she lost her balance, fell and believes that she lost consciousness. She was unsuyre how she got to the ER. Noted to be Anemic with Hgb of 7.3. In review of meditech she has a chronic anemia however now it appears to be microcytic. She last underwent upper endoscopy 04/12 at [facility] performed by myself that revealed a large hiatal hernia and suture material where repair of a perforated duodenal bulb ulcer was performed. Her last colonoscopy appeared to be in 2010 at [facility] by Dr. Peña however findings are not known. She denies any abdominal pain, rectal bleeding , melena, change in bowel hanbits and describes brown bowel movements. She underwent surgical repair of her paraesophageal hernia 06/[address] Maurer at [facility]. There is no family history of colorectal cancer. 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 osteomyelitis) Endocrine: Yes: Other (adrenal insufficiency) - Past Surgical History Past Surgical History: Yes: Hysterectomy, Joint Replacement (Ttl Knee replacement x 2 right knee with 2 right knee revisions, Ttl Left knee replacement. MRSA infection) Additional Surgical History: repair of paraesophageal hernia, repair of perforated duodenal bulb ulcer - Alcohol/Substance Use Hx Alcohol Use: Yes (quit 10 yrs prior) History of Substance Use: reports: None - Smoking History Smoking history: Former smoker Have you smoked in the past 12 months: No Aproximately how many cigarettes per day: 2 If you are a former smoker, when did you quit?: may 2013 - Social History ADL: Independent (lives in senior building without stairs, ambulated with SC) Place of : [facility] History of Recent Travel: No Home Medications - Allergies Allergies/Adverse Reactions: Allergies Allergy/AdvReac Type Severity Reaction Status Date / Time No Known Drug Allergies Allergy Verified 09/26/17 17:57 tape AdvReac Uncoded 09/26/17 16:27 - Home Medications Home Medications: Ambulatory Orders Escitalopram Oxalate [Lexapro -] 20 mg PO DAILY #0 tablet 07/11/13 Lorazepam [Ativan] 1 mg PO TID PRN 10/28/13 Oxycodone HCl/Acetaminophen [Percocet 10-325 mg Tablet] 1 - 2 tab PO Q4H PRN 12/08 Zolpidem Tartrate [Ambien] 10 mg PO HS PRN 10/28/13 Hydrocortisone [Cortef -] 10 mg PO DAILY 01/09/17 Metoprolol Succinate [Toprol XL -] 25 mg PO BID 01/09/17 Sulfamethoxazole/Trimethoprim [Bactrim DS -] 1 tab PO DAILY 03/26/17 Ondansetron HCl [Zofran] 4 mg PO Q6H #30 tablet 03/31/17 Pantoprazole Sodium [Protonix -] 40 mg PO DAILY #60 tablet.ec 03/31/17 Family Disease History - Family Disease History Other Family History: Non contribuatory Review of Systems - Review of Systems Constitutional: denies: Chills, Fever, Unintentional Wgt. Loss Cardiovascular: denies: Chest Pain Respiratory: denies: SOB Gastrointestinal: denies: Abdominal Pain, Melena, Nausea, Rectal Bleeding, Vomiting Physical Exam-GI Vital Signs: Vital Signs Temperature 98.3 F 09/27/17 14:28 Pulse Rate 80 09/27/17 14:28 Respiratory Rate 18 09/27/17 14:28 Blood Pressure 109/62 09/27/17 14:28 O2 Sat by Pulse Oximetry (%) 96 09/27/17 09:00 Constitutional: Yes: Calm Eyes: No: Sclera Icterus Cardiovascular: Yes: Regular Rate and Rhythm Respiratory: Yes: CTA Bilaterally Gastrointestinal Inspection: Yes: Scars (midline vertical upper abdominal surgical scar) ...Auscultate: Yes: Normoactive Bowel Sounds ...Palpate: No: Hepatomegaly, Splenomegaly, Tenderness ...Percussion: No: Tympanitic ...Rectal Exam: Yes: Other (performed by medical health researcher: brown stool / no masses. Guaiac performed with the resident: guaiac positive.) Edema: No (No LE edema) Neurological: Yes: Alert, Oriented (x person, place, partially to time) Labs: CBC, BMP 09/27/17 10:55 09/27/17 10:55 Problem List - Problems (1) Microcytic anemia Assessment/Plan: Microcytic anemia. Appears to be chronic however guaiac positive as well. When acute issues are resolved mild confusion has resolved and rhabdomyloysis treated, EGD / colonoscopy can be undertaken to assess for sources of blood loss such as recurrent PUD, polyps or cancers of the GI tract. I discussed this with Ms. Lorenz and she said that if they were necedssary she would have them performed. It is unclear if she can give her own consent for procedures so if confusion continues, this will need to be clarified PPI for now Monitor H/H and for signs of active GI bleeding Code(s): D50.9 - IRON DEFICIENCY ANEMIA, UNSPECIFIED
[2017-09-27] MEDS: SODIUM CHLORIDE 1,000 ML IV SCH (22:07)
[2017-09-28] MEDS: ZOLPIDEM TARTRATE 5 MG TABLET PO PRN ×2 (01:54→22:09)
--- NOTE | 2017-09-28 06:54 | PN ---
Progress Note (short form) - Note Progress Note: ID Consult dictated Chronically infected R TKR MRSA Continue nursing secretary antibiotic suppression with po Bactrim.
[2017-09-28 08:14] LABS: ALBUMIN 2.8 g/dl (3.4-5.0); ANION GAP 8 (8-16); BILIRUBIN,TOTAL 0.5 mg/dL (0.2-1.0); BLOOD UREA NITROGEN 7 mg/dL (7-18); CALCIUM 7.8 mg/dL (8.5-10.1); CHLORIDE 108 mmol/L (98-107); CO2 22 mmol/L (21-32); GLUCOSE,RANDOM 82 mg/dL (74-106); SGOT/AST 101 U/L (15-37); SGPT/ALT 33 U/L (12-78); SODIUM 138 mmol/L (136-145)
[2017-09-28 08:15] LABS: ALK PHOS 75 U/L (45-117); CREATININE 0.7 mg/dL (0.55-1.02); TOT PROT 5.6 g/dl (6.4-8.2)
[2017-09-28] MEDS: oxyCODONE HCL 5 MG TABLET PO PRN ×2 (08:33→14:25)
[2017-09-28] MEDS ORDERED: PT OWN MED DRAWER 7, Y5N ONE (09:19)
[2017-09-28] MEDS: DOCUSATE SODIUM 100 MG CAPSULE (FP) PO SCH ×2 (09:48→22:09)
[2017-09-28] MEDS: PANTOPRAZOLE 40 MG TABLET (FP) PO SCH ×2 (09:48→22:09)
[2017-09-28] MEDS: SULFAMETHOXAZOLE/TRIMETHOPRIM 800MG/160MG D.S. TABLET PO SCH (09:48)
[2017-09-28] MEDS: HYDROCORTISONE 10 MG TABLET PO SCH (09:48)
[2017-09-28] MEDS: ESCITALOPRAM OXALATE 20 MG TABLET (FP) PO SCH (09:48)
[2017-09-28] MEDS: LORazepam 1 MG TABLET PO PRN (09:57)
--- NOTE | 2017-09-28 10:47 | PN ---
Physical Exam: SUBJECTIVE: Patient seen and examined at bedside. NO overnight events. No new complaints. Feels much better today. No abdominal pain. She is tolerating her diet. She had BM today with no signs of bleeding. Denies CP,JAMESON, palpitations, SOB, abdominal pain, N/V. OBJECTIVE: Vital Signs Period Temp Pulse Resp BP Sys/Xiao Pulse Ox Last 24 Hr 97.7 F-98.4 F 63-80 16-18 109-137/62-76 96-98 GENERAL:AAOx2, NAD HEAD: NC , left orbit ecchymosis. EYES: sclera anicteric ENT: moist mucous membranes. LUNGS: CTAB, No wheezing or rales. HEART: RRR, NL S1S2, 3/6 KIMO RSB ABDOMEN: Soft, NT/ND, NL BS, vertical incision scar in epigastric region. No organomegally. EXTREMITIES: no edema. NEUROLOGICAL: Normal speech, gait not observed. PSYCH: Normal mood, slightly lethargic. Laboratory Results - last 24 hr 09/27/17 09/27/17 09/28/17 10:55 10:55 06:27 WBC 3.6 L RBC 3.34 L Hgb 7.8 L Hct 25.1 L MCV 75.1 L MCH 23.3 L MCHC 31.0 L RDW 18.3 H Plt Count 229 MPV 7.5 Sodium 140 138 Potassium 3.8 4.0 Chloride 111 H 108 H Carbon Dioxide 20 L 22 Anion Gap 9 8 BUN 14 7 Creatinine 0.6 0.7 Creat Clearance w eGFR > 60 > 60 Random Glucose 78 82 Calcium 7.9 L 7.8 L Total Bilirubin 0.8 D 0.5 D AST 119 H 101 H ALT 34 33 Alkaline Phosphatase 72 75 Creatine Kinase 2053 H Creatine Kinase Index 0.6 CK-MB (CK-2) 13.405 H Total Protein 5.6 L 5.6 L Albumin 2.8 L 2.8 L Active Medications Generic Name Dose Route Start Last Admin Trade Name Freq PRN Reason Stop Dose Admin Acetaminophen 650 mg 09/26/17 22:01 Tylenol - PO Q6H PRN MILD PAIN Docusate Sodium 200 mg 09/26/17 22:00 09/28/17 09:48 Colace - PO 200 mg BID ALFREDA Administration Escitalopram Oxalate 20 mg 09/27/17 10:00 09/28/17 09:48 Lexapro - PO 20 mg DAILY ALFREDA Administration Hydrocortisone 10 mg 09/27/17 10:00 09/28/17 09:48 Cortef - PO 10 mg DAILY ALFREDA Administration Sodium Chloride 1,000 mls @ 150 mls/hr 09/26/17 22:00 09/27/17 22:07 Normal Saline - IV 150 mls/hr ASDIR ALFREDA Administration Lorazepam 1 mg 09/26/17 21:42 09/28/17 09:57 Ativan - PO 1 mg BID PRN Administration ANXIETY Oxycodone HCl 10 mg 09/26/17 21:42 09/28/17 08:33 Roxicodone - PO 10 mg Q6H PRN Administration PAIN LEVEL 4 - 6 Pantoprazole Sodium 40 mg 09/26/17 22:00 09/28/17 09:48 Protonix - PO 40 mg BID ALFREDA Administration Trimethoprim/Sulfamethoxazole 1 each 09/27/17 10:00 09/28/17 09:48 Bactrim Ds - PO 1 each DAILY ALFREDA Administration Zolpidem Tartrate 5 mg 09/27/17 21:42 09/28/17 01:54 Ambien - PO 5 mg HS PRN Administration INSOMNIA ASSESSMENT: 67 yo F with history of PUD presents with microcytic anemia and guiac positive stools. Anemia: * May represent iron deficiency anemia however given guiac positive stools and h /o perforated ulcer must r/o occult bleed. * H/H stable since transfusion. * Iron studies will be invalid given she received 1 unit PRBC already. PLAN: * Will consent for possible EGD and colonoscopy on Sunday. * Will continue to trend H/H * Continue PPI * continue to monitor for signs of bleeding. Visit type - Emergency Visit Emergency Visit: Yes ED Registration Date: 09/26/17 Care time: The patient presented to the Emergency Department on the above date and was hospitalized for further evaluation of their emergent condition. - New Patient This patient is new to me today: No - Critical Care Critical Care patient: No
[2017-09-28 11:18] LABS: BASO % 0.9 % (0-2.0); EOS % 3.5 % (0-4.5); HEMATOCRIT 24.8 % (32.4-45.2); HEMOGLOBIN 7.7 GM/dL (10.7-15.3); LYMPH % 26.7 % (8-40); MCHC 30.9 g/dl (32.0-36.0); MEAN CELL VOLUME 74.5 fl (80-96); MEAN PLT VOLUME 7.4 fl (7.5-11.1); MONO % 11.9 % (3.8-10.2); PLATELET COUNT 226 K/MM3 (134-434); RBC 3.33 M/mm3 (3.60-5.2); WHITE BLOOD COUNT 3.1 K/mm3 (4.0-10.0)
--- NOTE | 2017-09-28 13:12 | CONS ---
DATE OF CONSULTATION: DATE OF DICTATION: 09/28/2017 INFECTIOUS DISEASE CONSULTATION HISTORY OF PRESENT ILLNESS: The patient is a 67-year-old female evaluated for chronically infected right total knee replacement. The patient was admitted to the hospital on September 26, 2017, after falls at home. She was found to have ecchymotic areas in the left periorbital area and hip and shoulders. Her hospital course was complicated by rhabdomyolysis. The patient has a history of MRSA septic arthritis in 2012. She has had multiple operations on her right knee including a total knee replacement and subsequent revisions. In 2012, she was hospitalized with septic arthritis of the knee and was found to have positive cultures for MRSA. Since that time, she has been maintained on chronic suppressive therapy with Bactrim. At the present time, she has no complaints referable to her knee. She denies any swelling or erythema. No fever or chills. She has been adherent to Bactrim and has been tolerating it. PAST MEDICAL HISTORY: Positive for COPD, asthma, osteoarthritis, chronic obstructive pulmonary disease, asthma, osteoarthritis, hepatitis C, chronic renal insufficiency, peptic ulcer disease, history of MRSA septic arthritis of the right knee in 2012. PAST SURGICAL HISTORY: Status post bilateral total knee replacements, left knee replaced approximately 20 years ago, right knee has been operated on 5 or 6 times for revisions. Past surgical history also includes appendectomy and hernia repair. ALLERGIES: No known drug allergies. MEDICATIONS: Include hydrocortisone for adrenal insufficiency, Bactrim Double Strength daily, Lexapro, Ambien, Ativan, Colace, oxycodone, Protonix. SOCIAL HISTORY: Former smoker. Former alcohol user. SYSTEMS REVIEW: Neurologic: No seizure activity or focal weakness. Cardiac: Negative chest pain or palpitations. Respiratory: Negative cough or sputum production. Gastrointestinal: Negative vomiting or diarrhea. Genitourinary: Negative urinary tract infection. LABORATORY DATA: White count 3.6, hematocrit 25.1, platelet count 229. BUN 14, creatinine 0.6. Urinalysis 1 white cell. PHYSICAL EXAMINATION: General: She is awake and alert. She is not acutely toxic appearing. Vital Signs: Temperature 98.3, blood pressure 109/62, pulse 80 regular, respirations 18 per minute. HEENT: Sclerae anicteric. Heart: Sounds S1, S2. Lungs: Clear. Abdomen: Soft. No mass, rebound, or rigidity. Extremities: Bilateral total knee replacement scars which are well healed. Examination of the right knee, there is no swelling, erythema, or tenderness. No evidence of infection. Left knee with healed surgical scar. 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 No evidence for recurrent active septic arthritis at this time or evidence of systemic infection. Continue long-term antibiotic suppression with oral Bactrim. Outpatient followup with primary care provider and orthopedist. Thank you for the kind referral. ARELI GOINS M.D. [id number]
--- NOTE | 2017-09-28 16:21 | PN ---
GI Progress Note Subjective: GI NOte: Denies any overt bleeding. Denies NSAID usage. NO abdominal pain. I have proposed that Petra undergo an EGD and a colonoscopy to exclude bleeding from a recurrent peptic ulcer, portal gastropathy or varices, AVMs and malignancies. I also informed her of the potential need to rubber band ligation of varices given her HCV. I have informed her of the potential for such complications as perforation and hemorrhage. After asking a few questions she is willing to consent for both - Objective Vital Signs: Vital Signs Temperature 98.1 F 09/28/17 14:00 Pulse Rate 80 09/28/17 14:00 Respiratory Rate 09/28/17 14:00 Blood Pressure 120/70 09/28/17 14:00 O2 Sat by Pulse Oximetry (%) 98 09/28/17 08:38 Laboratory Tests 09/26/17 09/28/17 17:32 10:40 Hgb 7.3 L D 7.7 L Constitutional: Calm ...Auscultate: Yes: Normoactive Bowel Sounds ...Palpate: Yes: Soft, Other (nontender) Labs: CBC, BMP 09/28/17 10:40 09/28/17 06:27 Problem List - Problems (1) GIB (gastrointestinal bleeding) Assessment/Plan: Suspect bleeding from portal gastropathy but need to exclude varices and malignancies. Will prep for colonoscopy in 10/01. Code(s): K92.2 - GASTROINTESTINAL HEMORRHAGE, UNSPECIFIED Qualifiers: GI bleed type/associated pathology: unspecified gastrointestinal hemorrhage type Qualified Code(s): K92.2 - Gastrointestinal hemorrhage, unspecified
[2017-09-28] MEDS: POLYETHYLENE GLYCOL 3350 119 GM BTL PO SCH (22:10)
[2017-09-28] MEDS: SODIUM CHLORIDE 1,000 ML IV SCH (22:13)
--- NOTE | 2017-09-28 22:24 | PN ---
Progress Note (short form) - Note Progress Note: sitting up in bed denies complaints reports needs medications and wants to go home explained need for GI evaluation and possible work up while here she is agreeable Vital Signs Period Temp Pulse Resp BP Sys/Xiao Pulse Ox Last 24 Hr 97.7 F-98.3 F 63-80 16-18 119-142/59-78 98 neck suppl e heart s1 /S2 lungs clear bilat abd soft non tender ext no edma CBC, BMP 09/28/17 10:40 09/28/17 06:27 s/p transfusion Microbiology 09/26/17 17:50 Urine - Urine - Catheterized Urine Culture - Final NO GROWTH OBTAINED Active Medications Acetaminophen (Tylenol -) 650 mg PO Q6H PRN PRN Reason: MILD PAIN Bisacodyl (Dulcolax -) 20 mg PO ONCE ONE Stop: 09/30/17 18:01 Docusate Sodium (Colace -) 200 mg PO BID ON LICENSE OF [facility] Last Admin: 09/28/17 22:09 Dose: 200 mg Escitalopram Oxalate (Lexapro -) 20 mg PO DAILY ON [facility] OF [facility] Last Admin: 09/28/17 09:48 Dose: 20 mg Hydrocortisone (Cortef -) 10 mg PO DAILY ON [facility] OF [facility] Last Admin: 09/28/17 09:48 Dose: 10 mg Sodium Chloride (Normal Saline -) 1,000 mls @ 150 mls/hr IV ASDIR ON LICENSE OF [facility] Last Admin: 09/28/17 22:13 Dose: 150 mls/hr Lorazepam (Ativan -) 1 mg PO BID PRN PRN Reason: ANXIETY Last Admin: 09/28/17 09:57 Dose: 1 mg Oxycodone HCl (Roxicodone -) 10 mg PO Q6H PRN PRN Reason: PAIN LEVEL 4 - 6 Last Admin: 09/28/17 14:25 Dose: 10 mg Pantoprazole Sodium (Protonix -) 40 mg PO BID ON LICENSE OF [facility] Last Admin: 09/28/17 22:09 Dose: 40 mg Polyethylene Glycol (Miralax (For Daily Use) -) 17 gm PO BID ON LICENSE OF [facility] Last Admin: 09/28/17 22:10 Dose: 17 gm Trimethoprim/Sulfamethoxazole (Bactrim Ds -) 1 each PO DAILY ON [facility] Last Admin: 09/28/17 09:48 Dose: 1 each Zolpidem Tartrate (Ambien -) 5 mg PO HS PRN PRN Reason: INSOMNIA Last Admin: 09/28/17 22:09 Dose: 5 mg #Rhabdomylosis Monitor CK levels continue IV fluids # anemia serial h/h transfuse as needed GI consult # Hx hep C Gi Consult GI Bleed / # Insomnia Continue Ambien 5 mg PO q hs PRN #Anxiety Lorazepam 1 mg PO BID PRN # Hx of MRSA Refer to ID for consult Continue Bactrim daily Problem List - Problems (1) Accidental drug overdose Code(s): T50.901A - POISONING BY UNSP DRUG/MEDS/BIOL SUBST, ACCIDENTAL, INIT (2) Fall Code(s): W19.XXXA - UNSPECIFIED FALL, INITIAL ENCOUNTER (3) Rhabdomyolysis Code(s): M62.82 - RHABDOMYOLYSIS (4) Symptomatic anemia Code(s): D64.9 - ANEMIA, UNSPECIFIED (5) COPD (chronic obstructive pulmonary disease) Code(s): J44.9 - CHRONIC OBSTRUCTIVE PULMONARY DISEASE, UNSPECIFIED Qualifiers: COPD type: unspecified COPD Qualified Code(s): J44.9 - Chronic obstructive pulmonary disease, unspecified (6) GIB (gastrointestinal bleeding) Code(s): K92.2 - GASTROINTESTINAL HEMORRHAGE, UNSPECIFIED Qualifiers: GI bleed type/associated pathology: unspecified gastrointestinal hemorrhage type Qualified Code(s): K92.2 - Gastrointestinal hemorrhage, unspecified
[2017-09-29 08:28] LABS: INR 1.05 (0.82-1.09); PROTHROMBIN TIME (PATIENT) 11.9 SEC (9.98-11.88)
[2017-09-29 08:35] LABS: ANION GAP 8 (8-16); BLOOD UREA NITROGEN 3 mg/dL (7-18); CALCIUM 8.1 mg/dL (8.5-10.1); CHLORIDE 110 mmol/L (98-107); CO2 22 mmol/L (21-32); CREATININE 0.6 mg/dL (0.55-1.02); GLUCOSE,RANDOM 88 mg/dL (74-106); POTASSIUM 3.6 mmol/L (3.5-5.1); SODIUM 140 mmol/L (136-145)
[2017-09-29] MEDS ORDERED: PT OWN MED DRAWER 7, Y5N ONE (08:50)
[2017-09-29] MEDS ORDERED: PEG3350/SOD SULF,BICARB,CL/KCL 4,000 ML SOLN.RECON PO ONE (09:00)
[2017-09-29] MEDS: LORazepam 1 MG TABLET PO PRN ×2 (09:04→21:11)
[2017-09-29] MEDS: ESCITALOPRAM OXALATE 20 MG TABLET (FP) PO SCH (09:04)
[2017-09-29] MEDS: PANTOPRAZOLE 40 MG TABLET (FP) PO SCH ×2 (09:04→21:11)
[2017-09-29] MEDS: SULFAMETHOXAZOLE/TRIMETHOPRIM 800MG/160MG D.S. TABLET PO SCH (09:04)
[2017-09-29] MEDS: DOCUSATE SODIUM 100 MG CAPSULE (FP) PO SCH ×2 (09:04→21:11)
[2017-09-29] MEDS: POLYETHYLENE GLYCOL 3350 119 GM BTL PO SCH ×2 (09:06→21:11)
[2017-09-29] MEDS: HYDROCORTISONE 10 MG TABLET PO SCH (09:06)
[2017-09-29 11:17] LABS: HEMATOCRIT 29.1 % (32.4-45.2); HEMOGLOBIN 8.8 GM/dL (10.7-15.3); MCH 22.9 pg (25.7-33.7); MCHC 30.3 g/dl (32.0-36.0); MEAN CELL VOLUME 75.5 fl (80-96); MEAN PLT VOLUME 7.3 fl (7.5-11.1); PLATELET COUNT 243 K/MM3 (134-434); RBC 3.86 M/mm3 (3.60-5.2); RDW 19.7 % (11.6-15.6); WHITE BLOOD COUNT 2.6 K/mm3 (4.0-10.0)
[2017-09-29 11:25] LABS: ADD RBC MORPHOLOGY YES
[2017-09-29 13:11] LABS: ANISOCYTOSIS 1+
[2017-09-29] MEDS: oxyCODONE HCL 5 MG TABLET PO PRN (21:11)
[2017-09-29] MEDS: ACETAMINOPHEN 325 MG TABLET (FP) PO PRN (21:15)
[2017-09-29] MEDS: SODIUM CHLORIDE 1,000 ML IV SCH (23:26)
--- NOTE | 2017-09-29 23:34 | PN ---
Progress Note (short form) - Note Progress Note: awake bowel prep started has been having liquid BM and currently soiled unable to get to bathroom Vital Signs Period Temp Pulse Resp BP Sys/Xiao Pulse Ox Last 24 Hr 97.7 F-98.3 F 63-80 16-18 119-142/59-78 98 neck suppl e heart s1 /S2 lungs clear bilat abd soft non tender/liquid stool / no visible blood ext no edma CBC, BMP 09/29/17 10:50 09/29/17 06:45 CK pending Microbiology 09/26/17 17:50 Urine - Urine - Catheterized Urine Culture - Final NO GROWTH OBTAINED Active Medications Acetaminophen (Tylenol -) 650 mg PO Q6H PRN PRN Reason: MILD PAIN Bisacodyl (Dulcolax -) 20 mg PO ONCE ONE Stop: 09/30/17 18:01 Docusate Sodium (Colace -) 200 mg PO BID [facility] Last Admin: 09/28/17 22:09 Dose: 200 mg Escitalopram Oxalate (Lexapro -) 20 mg PO DAILY [facility] Last Admin: 09/28/17 09:48 Dose: 20 mg Hydrocortisone (Cortef -) 10 mg PO DAILY [facility] Last Admin: 09/28/17 09:48 Dose: 10 mg Sodium Chloride (Normal Saline -) 1,000 mls @ 150 mls/hr IV ASDIR [facility] Last Admin: 09/28/17 22:13 Dose: 150 mls/hr Lorazepam (Ativan -) 1 mg PO BID PRN PRN Reason: ANXIETY Last Admin: 09/28/17 09:57 Dose: 1 mg Oxycodone HCl (Roxicodone -) 10 mg PO Q6H PRN PRN Reason: PAIN LEVEL 4 - 6 Last Admin: 09/28/17 14:25 Dose: 10 mg Pantoprazole Sodium (Protonix -) 40 mg PO BID [facility] Last Admin: 09/28/17 22:09 Dose: 40 mg Polyethylene Glycol (Miralax (For Daily Use) -) 17 gm PO BID [facility] Last Admin: 09/28/17 22:10 Dose: 17 gm Trimethoprim/Sulfamethoxazole (Bactrim Ds -) 1 each PO DAILY [facility] Last Admin: 09/28/17 09:48 Dose: 1 each Zolpidem Tartrate (Ambien -) 5 mg PO HS PRN PRN Reason: INSOMNIA Last Admin: 09/28/17 22:09 Dose: 5 mg #Rhabdomylosis Monitor CK levels continue IV fluids # anemia serial h/h - slow inc - transfuse as needed GI w/u planned now taking bowel prep # Hx hep C Gi Consult GI Bleed / # Insomnia Continue Ambien 5 mg PO q hs PRN #Anxiety Lorazepam 1 mg PO BID PRN # Hx of MRSA Refer to ID for consult Continue Bactrim daily Problem List - Problems (1) Accidental drug overdose Code(s): T50.901A - POISONING BY UNSP DRUG/MEDS/BIOL SUBST, ACCIDENTAL, INIT (2) Fall Code(s): W19.XXXA - UNSPECIFIED FALL, INITIAL ENCOUNTER (3) Rhabdomyolysis Code(s): M62.82 - RHABDOMYOLYSIS (4) Symptomatic anemia Code(s): D64.9 - ANEMIA, UNSPECIFIED (5) COPD (chronic obstructive pulmonary disease) Code(s): J44.9 - CHRONIC OBSTRUCTIVE PULMONARY DISEASE, UNSPECIFIED Qualifiers: COPD type: unspecified COPD Qualified Code(s): J44.9 - Chronic obstructive pulmonary disease, unspecified (6) GIB (gastrointestinal bleeding) Code(s): K92.2 - GASTROINTESTINAL HEMORRHAGE, UNSPECIFIED Qualifiers: GI bleed type/associated pathology: unspecified gastrointestinal hemorrhage type Qualified Code(s): K92.2 - Gastrointestinal hemorrhage, unspecified
[2017-09-30] MEDS: SODIUM CHLORIDE 0.45% 1,000 ML IV SCH (04:21)
[2017-09-30] MEDS: oxyCODONE HCL 5 MG TABLET PO PRN ×4 (04:21→22:41)
[2017-09-30] MEDS: ACETAMINOPHEN 325 MG TABLET (FP) PO PRN ×4 (04:23→22:47)
[2017-09-30 07:54] LABS: BASO % 0.8 % (0-2.0); EOS % 5.1 % (0-4.5); HEMATOCRIT 27.6 % (32.4-45.2); HEMOGLOBIN 8.6 GM/dL (10.7-15.3); LYMPH % 38.6 % (8-40); MCH 23.1 pg (25.7-33.7); MCHC 31.1 g/dl (32.0-36.0); MEAN CELL VOLUME 74.4 fl (80-96); MEAN PLT VOLUME 7.3 fl (7.5-11.1); MONO % 9.8 % (3.8-10.2); NEUT % 45.7 % (42.8-82.8); PLATELET COUNT 240 K/MM3 (134-434); RBC 3.72 M/mm3 (3.60-5.2); RDW 20.1 % (11.6-15.6); WHITE BLOOD COUNT 3.2 K/mm3 (4.0-10.0)
[2017-09-30 08:27] LABS: ANION GAP 9 (8-16); BLOOD UREA NITROGEN 4 mg/dL (7-18); CALCIUM 8.1 mg/dL (8.5-10.1); CHLORIDE 105 mmol/L (98-107); CO2 25 mmol/L (21-32); CREATININE 0.6 mg/dL (0.55-1.02); GLUCOSE,RANDOM 88 mg/dL (74-106); MAGNESIUM 1.2 mg/dL (1.8-2.4); PHOSPHOROUS 3.3 mg/dL (2.5-4.9); POTASSIUM 3.4 mmol/L (3.5-5.1); SODIUM 139 mmol/L (136-145)
[2017-09-30] MEDS ORDERED: PEG3350/SOD SULF,BICARB,CL/KCL 4,000 ML SOLN.RECON PO ONE (09:00)
[2017-09-30] MEDS ORDERED: PT OWN MED DRAWER 7, Y5N ONE (10:29)
[2017-09-30] MEDS: ESCITALOPRAM OXALATE 20 MG TABLET (FP) PO SCH (10:31)
[2017-09-30] MEDS: DOCUSATE SODIUM 100 MG CAPSULE (FP) PO SCH ×2 (10:31→21:22)
[2017-09-30] MEDS: SULFAMETHOXAZOLE/TRIMETHOPRIM 800MG/160MG D.S. TABLET PO SCH (10:31)
[2017-09-30] MEDS: HYDROCORTISONE 10 MG TABLET PO SCH (10:31)
[2017-09-30] MEDS: PANTOPRAZOLE 40 MG TABLET (FP) PO SCH ×2 (10:31→21:22)
[2017-09-30] MEDS: POLYETHYLENE GLYCOL 3350 119 GM BTL PO SCH ×2 (10:32→21:22)
[2017-09-30] MEDS ORDERED: POTASSIUM CHLORIDE TABS 20 MEQ TABLET.ER (FP) PO ONE (15:30)
[2017-09-30] MEDS ORDERED: MAGNESIUM SULF 50% (8.12 MEQ/2 ML-1 GM VIAL) IVPB ONE (15:31)
[2017-09-30] MEDS ORDERED: MAGNESIUM SULFATE IN WATER 2 GM/50 ML IVPB IVPB ONE (15:45)
[2017-09-30] MEDS ORDERED: BISACODYL 5 MG TABLET.DR (FP) PO ONE (18:00)
--- NOTE | 2017-09-30 19:00 | PN ---
Progress Note (short form) - Note Progress Note: awake bowel prep started on liquid diet tolerating well Vital Signs Period Temp Pulse Resp BP Sys/Xiao Pulse Ox Last 24 Hr 97.7 F-98.3 F 63-80 16-18 119-142/59-78 98 neck suppl e heart s1 /S2 lungs clear bilat abd soft non tender/liquid stool / no visible blood ext no edma CBC, BMP 09/30/17 06:15 09/30/17 06:15 mg 1.2 CK 348 Microbiology 09/26/17 17:50 Urine - Urine - Catheterized Urine Culture - Final NO GROWTH OBTAINED Active Medications Acetaminophen (Tylenol -) 650 mg PO Q6H PRN PRN Reason: MILD PAIN Bisacodyl (Dulcolax -) 20 mg PO ONCE ONE Stop: 09/30/17 18:01 Docusate Sodium (Colace -) 200 mg PO BID [facility] Last Admin: 09/28/17 22:09 Dose: 200 mg Escitalopram Oxalate (Lexapro -) 20 mg PO DAILY [facility] Last Admin: 09/28/17 09:48 Dose: 20 mg Hydrocortisone (Cortef -) 10 mg PO DAILY [facility] Last Admin: 09/28/17 09:48 Dose: 10 mg Sodium Chloride (Normal Saline -) 1,000 mls @ 150 mls/hr IV ASDIR [facility] Last Admin: 09/28/17 22:13 Dose: 150 mls/hr Lorazepam (Ativan -) 1 mg PO BID PRN PRN Reason: ANXIETY Last Admin: 09/28/17 09:57 Dose: 1 mg Oxycodone HCl (Roxicodone -) 10 mg PO Q6H PRN PRN Reason: PAIN LEVEL 4 - 6 Last Admin: 09/28/17 14:25 Dose: 10 mg Pantoprazole Sodium (Protonix -) 40 mg PO BID [facility] Last Admin: 09/28/17 22:09 Dose: 40 mg Polyethylene Glycol (Miralax (For Daily Use) -) 17 gm PO BID [facility] Last Admin: 09/28/17 22:10 Dose: 17 gm Trimethoprim/Sulfamethoxazole (Bactrim Ds -) 1 each PO DAILY [facility] Last Admin: 09/28/17 09:48 Dose: 1 each Zolpidem Tartrate (Ambien -) 5 mg PO HS PRN PRN Reason: INSOMNIA Last Admin: 09/28/17 22:09 Dose: 5 mg #Rhabdomylosis resolving trending CK levels continue IV fluids # anemia serial h/h - remains stable transfuse as needed GI w/u planned for am now taking bowel prep # Hx hep C Gi Consult GI Bleed / # Insomnia Continue Ambien 5 mg PO q hs PRN #Anxiety Lorazepam 1 mg PO BID PRN # Hx of MRSA Refer to ID for consult Continue Bactrim daily Problem List - Problems (1) Accidental drug overdose Code(s): T50.901A - POISONING BY UNSP DRUG/MEDS/BIOL SUBST, ACCIDENTAL, INIT (2) Fall Code(s): W19.XXXA - UNSPECIFIED FALL, INITIAL ENCOUNTER (3) Rhabdomyolysis Code(s): M62.82 - RHABDOMYOLYSIS (4) Symptomatic anemia Code(s): D64.9 - ANEMIA, UNSPECIFIED (5) COPD (chronic obstructive pulmonary disease) Code(s): J44.9 - CHRONIC OBSTRUCTIVE PULMONARY DISEASE, UNSPECIFIED Qualifiers: COPD type: unspecified COPD Qualified Code(s): J44.9 - Chronic obstructive pulmonary disease, unspecified (6) GIB (gastrointestinal bleeding) Code(s): K92.2 - GASTROINTESTINAL HEMORRHAGE, UNSPECIFIED Qualifiers: GI bleed type/associated pathology: unspecified gastrointestinal hemorrhage type Qualified Code(s): K92.2 - Gastrointestinal hemorrhage, unspecified
[2017-09-30] MEDS: LORazepam 1 MG TABLET PO PRN (21:22)
[2017-10-01] MEDS: oxyCODONE HCL 5 MG TABLET PO PRN ×3 (05:58→17:58)
[2017-10-01] MEDS: SODIUM CHLORIDE 0.45% 1,000 ML IV SCH (05:58)
[2017-10-01] MEDS: ACETAMINOPHEN 325 MG TABLET (FP) PO PRN (05:59)
[2017-10-01 06:39] LABS: EOS % 4.6 % (0-4.5); HEMATOCRIT 25.3 % (32.4-45.2); LYMPH % 38.1 % (8-40); MCH 23.5 pg (25.7-33.7); MCHC 31.7 g/dl (32.0-36.0); MEAN CELL VOLUME 74.2 fl (80-96); MEAN PLT VOLUME 7.3 fl (7.5-11.1); MONO % 6.7 % (3.8-10.2); NEUT % 49.6 % (42.8-82.8); PLATELET COUNT 250 K/MM3 (134-434); RBC 3.41 M/mm3 (3.60-5.2); RDW 20.3 % (11.6-15.6); WHITE BLOOD COUNT 3.6 K/mm3 (4.0-10.0)
[2017-10-01 07:15] LABS: ANION GAP 10 (8-16); BLOOD UREA NITROGEN 5 mg/dL (7-18); CALCIUM 8.3 mg/dL (8.5-10.1); CHLORIDE 104 mmol/L (98-107); CO2 24 mmol/L (21-32); CREATININE 0.6 mg/dL (0.55-1.02); GLUCOSE,RANDOM 81 mg/dL (74-106); MAGNESIUM 1.9 mg/dL (1.8-2.4); POTASSIUM 3.7 mmol/L (3.5-5.1); SODIUM 138 mmol/L (136-145)
[2017-10-01] MEDS ORDERED: SUCCINYLCHOLINE CHLORIDE 200 MG/10 ML VIAL ONE (08:06)
[2017-10-01] MEDS ORDERED: PROPOFOL 20 ML ONE ×2 (08:06)
[2017-10-01] MEDS ORDERED: ETOMIDATE 20 MG/10 ML AMPUL IVPUSH ONE (08:06)
--- NOTE | 2017-10-01 09:27 | PN ---
Progress Note (short form) - Note Progress Note: GI Procedures NOte: Please see scanned EGD and colonoscopy reports. EGD revealed a copious amount of retained food despite the fact that Petra last ate solids over 48 hours ago. This may reflect her relatively recent paraesophageal hernia repair. A vascular ectasia was seen in the 2nd portion of the duodenum. No varices were seen. Colonoscopy revealed diverticulosis and led to the removal of several small polyps but no source of anemia was found. Bleeding from small bowel vascular ectasias could account for Petra's microcytic anemia and referral to Dr Bailey for a capsule endoscopy should be considered. Will get a gastric emptying scan but otherwise I have no GI objections to discharge. Problem List - Problems (1) GIB (gastrointestinal bleeding) Code(s): K92.2 - GASTROINTESTINAL HEMORRHAGE, UNSPECIFIED Qualifiers: GI bleed type/associated pathology: unspecified gastrointestinal hemorrhage type Qualified Code(s): K92.2 - Gastrointestinal hemorrhage, unspecified
[2017-10-01] MEDS: POLYETHYLENE GLYCOL 3350 119 GM BTL PO SCH (10:06)
--- NOTE | 2017-10-01 10:34 | PN ---
<Jamie Hebert - Last Filed: 10/01/17 10:34> Physical Exam: SUBJECTIVE: Patient seen and examined at bedside. No overnight events. No new complaints. S/P EGD and colonoscopy this morning. Tolerated both procedures well. Denies CP,JAMESON, SOB, palpitations, Abdominal pain, N/V. OBJECTIVE: Vital Signs Period Temp Pulse Resp BP Sys/Xiao Pulse Ox Last 24 Hr 97.6 F-98.3 F 53-66 14-20 113-160/65-80 96-100 GENERAL: AAOx3, NAD HEAD: orbital ecchymosis EYES: anicteric sclera. ENT: moist mucous membranes. LUNGS: CTAB, No wheezing or rales. HEART: RRR, NL S1S2, NO m/g/r ABDOMEN: Soft, NT/ND, NL BS, vertical incision scar in epigastric region. No organomegally. EXTREMITIES: no edema. NEUROLOGICAL: Normal speech, gait not observed. PSYCH: Normal mood Laboratory Results - last 24 hr 09/29/17 09/30/17 10/01/17 06:45 06:15 05:35 WBC 3.6 L RBC 3.41 L Hgb 8.0 L Hct 25.3 L MCV 74.2 L MCH 23.5 L MCHC 31.7 L RDW 20.3 H Plt Count 250 MPV 7.3 L Neutrophils % 49.6 Lymphocytes % 38.1 Monocytes % 6.7 Eosinophils % 4.6 H Basophils % 1.0 Sodium Potassium Chloride Carbon Dioxide Anion Gap BUN Creatinine Random Glucose Calcium Magnesium Creatine Kinase Index 0.6 CK-MB (CK-2) 2.187 Tumor Marker AFP 2.8 10/01/17 05:35 WBC RBC Hgb Hct MCV MCH MCHC RDW Plt Count MPV Neutrophils % Lymphocytes % Monocytes % Eosinophils % Basophils % Sodium 138 Potassium 3.7 Chloride 104 Carbon Dioxide 24 Anion Gap 10 BUN 5 L Creatinine 0.6 Random Glucose 81 Calcium 8.3 L Magnesium 1.9 Creatine Kinase Index CK-MB (CK-2) Tumor Marker AFP Active Medications Generic Name Dose Route Start Last Admin Trade Name Freq PRN Reason Stop Dose Admin Acetaminophen 650 mg 09/26/17 22:01 10/01/17 05:59 Tylenol - PO 650 mg Q6H PRN Administration MILD PAIN Docusate Sodium 200 mg 09/26/17 22:00 09/30/17 21:22 Colace - PO 200 mg BID [facility] Administration Escitalopram Oxalate 20 mg 09/27/17 10:00 09/30/17 10:31 Lexapro - PO 20 mg DAILY [facility] Administration Hydrocortisone 10 mg 09/27/17 10:00 09/30/17 10:31 Cortef - PO 10 mg DAILY [facility] Administration Sodium Chloride 1,000 mls @ 100 mls/hr 09/30/17 04:00 10/01/17 05:58 1/2 Normal Saline IV 100 mls/hr ASDIR [facility] Administration Lorazepam 1 mg 09/26/17 21:42 09/30/17 21:22 Ativan - PO 1 mg BID PRN Administration ANXIETY Oxycodone HCl 10 mg 09/26/17 21:42 10/01/17 05:58 Roxicodone - PO 10 mg Q6H PRN Administration PAIN LEVEL 4 - 6 Pantoprazole Sodium 40 mg 10/01/17 10:00 Protonix - PO DAILY [facility] Polyethylene Glycol 17 gm 10/01/17 10:00 Miralax (For Daily Use) - PO DAILY [facility] Trimethoprim/Sulfamethoxazole 1 each 09/27/17 10:00 09/30/17 10:31 Bactrim Ds - PO 1 each DAILY [facility] Administration Zolpidem Tartrate 5 mg 09/27/17 21:42 09/28/17 22:09 Ambien - PO 5 mg HS PRN Administration INSOMNIA ASSESSMENT/PLAN: 67 yo F with history of PUD presents with microcytic anemia and guiac positive stools. Anemia: * s/p EGD and Colonoscopy today.A vascular ectasia was seen in the 2nd portion of the duodenum. No varices were seen. Colonoscopy revealed diverticulosis and led to the removal of several small polyps but no source of anemia was found. * H/H has remained stable. PLAN: * Capsule endoscopy should be considered with Dr. Bailey. * Will get gastric emptying study. * Continue PPI * From GI standpoint can be discharged with one week follow up. Visit type - Emergency Visit Emergency Visit: Yes ED Registration Date: 09/26/17 Care time: The patient presented to the Emergency Department on the above date and was hospitalized for further evaluation of their emergent condition. - New Patient This patient is new to me today: No - Critical Care Critical Care patient: No <Augustine Zamarripa - Last Filed: 10/02/17 21:15> Physical Exam: SUBJECTIVE: Patient seen and examined OBJECTIVE: Vital Signs Period Temp Pulse Resp BP Sys/Xiao Pulse Ox Last 24 Hr 97.7 F-97.9 F 57-70 18-18 138-143/69-86 98 GENERAL: The patient is awake, alert, and fully oriented, in no acute distress. HEAD: Normal with no signs of trauma. EYES: PERRL, extraocular movements intact, sclera anicteric, conjunctiva clear. No ptosis. ENT: Ears normal, nares patent, oropharynx clear without exudates, moist mucous membranes. NECK: Trachea midline, full range of motion, supple. LUNGS: Breath sounds equal, clear to auscultation bilaterally, no wheezes, no crackles, no accessory muscle use. HEART: Regular rate and rhythm, S1, S2 without murmur, rub or gallop. ABDOMEN: Soft, nontender, nondistended, normoactive bowel sounds, no guarding, no rebound, no hepatosplenomegaly, no masses. EXTREMITIES: 2+ pulses, warm, well-perfused, no edema. NEUROLOGICAL: Cranial nerves II through XII grossly intact. Normal speech, gait not observed. PSYCH: Normal mood, normal affect. SKIN: Warm, dry, normal turgor, no rashes or lesions noted Laboratory Results - last 24 hr 10/02/17 10/02/17 05:30 05:30 WBC 4.3 RBC 3.50 L Hgb 8.2 L Hct 26.5 L MCV 75.7 L MCH 23.3 L MCHC 30.8 L RDW 19.9 H Plt Count 232 MPV 7.6 Neutrophils % 53.5 Lymphocytes % 36.2 Monocytes % 6.1 Eosinophils % 3.5 Basophils % 0.7 Sodium 139 Potassium 4.6 Chloride 104 Carbon Dioxide 28 Anion Gap 7 L BUN 9 Creatinine 0.8 Random Glucose 76 Calcium 8.9 ASSESSMENT/PLAN: Discussed with Dr Hebert. Problem List - Problems (1) GIB (gastrointestinal bleeding) Code(s): K92.2 - GASTROINTESTINAL HEMORRHAGE, UNSPECIFIED Qualifiers: GI bleed type/associated pathology: unspecified gastrointestinal hemorrhage type Qualified Code(s): K92.2 - Gastrointestinal hemorrhage, unspecified
[2017-10-01] MEDS: HYDROCORTISONE 10 MG TABLET PO SCH (10:46)
[2017-10-01] MEDS: DOCUSATE SODIUM 100 MG CAPSULE (FP) PO SCH (10:48)
[2017-10-01] MEDS: ESCITALOPRAM OXALATE 20 MG TABLET (FP) PO SCH (10:48)
[2017-10-01] MEDS: SULFAMETHOXAZOLE/TRIMETHOPRIM 800MG/160MG D.S. TABLET PO SCH (10:48)
[2017-10-01] MEDS: PANTOPRAZOLE 40 MG TABLET (FP) PO SCH (10:48)
[2017-10-01] MEDS: LORazepam 1 MG TABLET PO PRN (11:01)
--- NOTE | 2017-10-01 22:58 | PN ---
Progress Note (short form) - Note Progress Note: patient s/p egd / colonoscopy still NPO - PO ordered denies abdominal pain Vital Signs Period Temp Pulse Resp BP Sys/Xiao Pulse Ox Last 24 Hr 97.7 F-98.3 F 63-80 16-18 119-142/59-78 98 neck suppl e heart s1 /S2 lungs clear bilat abd soft non tender ext no edma CBC, BMP 10/01/17 05:35 10/01/17 05:35 Microbiology 09/26/17 17:50 Urine - Urine - Catheterized Urine Culture - Final NO GROWTH OBTAINED Active Medications Acetaminophen (Tylenol -) 650 mg PO Q6H PRN PRN Reason: MILD PAIN Bisacodyl (Dulcolax -) 20 mg PO ONCE ONE Stop: 09/30/17 18:01 Docusate Sodium (Colace -) 200 mg PO BID [facility] Last Admin: 09/28/17 22:09 Dose: 200 mg Escitalopram Oxalate (Lexapro -) 20 mg PO DAILY [facility] Last Admin: 09/28/17 09:48 Dose: 20 mg Hydrocortisone (Cortef -) 10 mg PO DAILY [facility] Last Admin: 09/28/17 09:48 Dose: 10 mg Sodium Chloride (Normal Saline -) 1,000 mls @ 150 mls/hr IV ASDIR [facility] Last Admin: 09/28/17 22:13 Dose: 150 mls/hr Lorazepam (Ativan -) 1 mg PO BID PRN PRN Reason: ANXIETY Last Admin: 09/28/17 09:57 Dose: 1 mg Oxycodone HCl (Roxicodone -) 10 mg PO Q6H PRN PRN Reason: PAIN LEVEL 4 - 6 Last Admin: 09/28/17 14:25 Dose: 10 mg Pantoprazole Sodium (Protonix -) 40 mg PO BID [facility] Last Admin: 09/28/17 22:09 Dose: 40 mg Polyethylene Glycol (Miralax (For Daily Use) -) 17 gm PO BID [facility] Last Admin: 09/28/17 22:10 Dose: 17 gm Trimethoprim/Sulfamethoxazole (Bactrim Ds -) 1 each PO DAILY [facility] Last Admin: 09/28/17 09:48 Dose: 1 each Zolpidem Tartrate (Ambien -) 5 mg PO HS PRN PRN Reason: INSOMNIA Last Admin: 09/28/17 22:09 Dose: 5 mg # anemia serial h/h - remains stable transfuse as needed s/p EGD /Coloscopy thi am resume PO outpatient capsule repeat cbc in am # Hx hep C out patient follow up # Insomnia Continue Ambien 5 mg PO q hs PRN #Anxiety Lorazepam 1 mg PO BID PRN # Hx of MRSA Continue Bactrim daily Problem List - Problems (1) Accidental drug overdose Code(s): T50.901A - POISONING BY UNSP DRUG/MEDS/BIOL SUBST, ACCIDENTAL, INIT (2) Fall Code(s): W19.XXXA - UNSPECIFIED FALL, INITIAL ENCOUNTER (3) Rhabdomyolysis Code(s): M62.82 - RHABDOMYOLYSIS (4) Symptomatic anemia Code(s): D64.9 - ANEMIA, UNSPECIFIED (5) COPD (chronic obstructive pulmonary disease) Code(s): J44.9 - CHRONIC OBSTRUCTIVE PULMONARY DISEASE, UNSPECIFIED Qualifiers: COPD type: unspecified COPD Qualified Code(s): J44.9 - Chronic obstructive pulmonary disease, unspecified (6) GIB (gastrointestinal bleeding) Code(s): K92.2 - GASTROINTESTINAL HEMORRHAGE, UNSPECIFIED Qualifiers: GI bleed type/associated pathology: unspecified gastrointestinal hemorrhage type Qualified Code(s): K92.2 - Gastrointestinal hemorrhage, unspecified
[2017-10-02] MEDS: DOCUSATE SODIUM 100 MG CAPSULE (FP) PO SCH ×2 (00:27→09:21)
[2017-10-02] MEDS: LORazepam 1 MG TABLET PO PRN ×2 (00:27→09:21)
[2017-10-02] MEDS: oxyCODONE HCL 5 MG TABLET PO PRN ×2 (00:27→08:10)
[2017-10-02] MEDS: SODIUM CHLORIDE 0.45% 1,000 ML IV SCH (00:34)
[2017-10-02 06:04] VITALS: TEMP 97.7
[2017-10-02 07:33] LABS: ANION GAP 7 (8-16); BLOOD UREA NITROGEN 9 mg/dL (7-18); CALCIUM 8.9 mg/dL (8.5-10.1); CHLORIDE 104 mmol/L (98-107); CO2 28 mmol/L (21-32); CREATININE 0.8 mg/dL (0.55-1.02); GLUCOSE,RANDOM 76 mg/dL (74-106); POTASSIUM 4.6 mmol/L (3.5-5.1); SODIUM 139 mmol/L (136-145)
[2017-10-02 07:50] LABS: BASO % 0.7 % (0-2.0); EOS % 3.5 % (0-4.5); HEMATOCRIT 26.5 % (32.4-45.2); HEMOGLOBIN 8.2 GM/dL (10.7-15.3); LYMPH % 36.2 % (8-40); MCH 23.3 pg (25.7-33.7); MCHC 30.8 g/dl (32.0-36.0); MEAN CELL VOLUME 75.7 fl (80-96); MEAN PLT VOLUME 7.6 fl (7.5-11.1); MONO % 6.1 % (3.8-10.2); NEUT % 53.5 % (42.8-82.8); PLATELET COUNT 232 K/MM3 (134-434); RDW 19.9 % (11.6-15.6); WHITE BLOOD COUNT 4.3 K/mm3 (4.0-10.0)
[2017-10-02] MEDS: HYDROCORTISONE 10 MG TABLET PO SCH (09:21)
[2017-10-02] MEDS: ESCITALOPRAM OXALATE 20 MG TABLET (FP) PO SCH (09:21)
[2017-10-02] MEDS: SULFAMETHOXAZOLE/TRIMETHOPRIM 800MG/160MG D.S. TABLET PO SCH (09:21)
[2017-10-02] MEDS: PANTOPRAZOLE 40 MG TABLET (FP) PO SCH (09:21)
[2017-10-02] MEDS: POLYETHYLENE GLYCOL 3350 119 GM BTL PO SCH (09:22)
--- NOTE | 2017-10-02 09:59 | DS ---
Physical Examination Vital Signs: Vital Signs Temperature 97.7 F 10/02/17 06:00 Pulse Rate 64 10/02/17 06:00 Respiratory Rate 18 10/02/17 06:00 Blood Pressure 138/86 10/02/17 06:00 O2 Sat by Pulse Oximetry (%) 98 10/01/17 21:00 Findings/Remarks: The patient is a 67 year old female, with a significant past medical history of MRSA, chronic renal insufficiency, Hepatitis C, asthma, COPD, anxiety, anemia, osteoarthritis, and mitral valve prolapse, who presents to the emergency department accompanied by daughter s/p multiple unwitnessed falls since yesterday. As per patients daughter, the patient was last known well at approximately 17:00, when she brought her dinner. Morning of admission the patients home health aid arrived, aide noticed the patient had ecchymosis around the left eye and across her hip and shoulders. Patient reports associated shoulder pain bilaterally, apparently having sustained fall overnight. As per daughter, patient last took Ambien previous night, and it is possible that the patient overdosed because she had not been sleeping well over the last couple of days. Since her fall patient has been ambulatory with assistance. Unknown if patient had any LOC, changes in vision, headache, dizziness, lightheadedness, neck or back pain. Patients history is limited due to clinical condition on admission. Patient is not on blood thinners. She was admitted / agressively hydrated to treat rhabdomyolysis / transfused and stabilized H & H/ Medications reviewed and adjusted. She underwent EGD and Colonscopy on 10/01/2017--no acute source of bleeding per GI NOT : GI Procedures NOte: Please see scanned EGD and colonoscopy reports. EGD revealed a copious amount of retained food despite the fact that Petra last ate solids over 48 hours ago. This may reflect her relatively recent paraesophageal hernia repair. A vascular ectasia was seen in the 2nd portion of the duodenum. No varices were seen. Colonoscopy revealed diverticulosis and led to the removal of several small polyps but no source of anemia was found. Bleeding from small bowel vascular ectasias could account for Petra's microcytic anemia and referral to Dr Bailey for a capsule endoscopy should be considered. Will get a gastric emptying scan but otherwise I have no GI objections to discharge. Constitutional: Yes: Well Nourished, No Distress, Calm Eyes: Yes: Conjunctiva Clear, EOM Intact HENT: Yes: Atraumatic, Normocephalic Neck: Yes: Supple, Trachea Midline Cardiovascular: Yes: Regular Rate and Rhythm Respiratory: Yes: CTA Bilaterally Gastrointestinal: Yes: Normal Bowel Sounds, Soft Musculoskeletal: Yes: WNL Extremities: Yes: WNL Edema: No Peripheral Pulses: Left Radial: 2+, Right Radial: 2+, Left Doralis Pedis: 2+, Right Dorsalis Pedis: 2+, Left Femoral: 2+, Right Femoral: 2+ Integumentary: Yes: WNL Neurological: Yes: Alert, Oriented ...Motor Strength: WNL Psychiatric: Yes: Alert, Oriented Labs: CBC, BMP 10/02/17 05:30 10/02/17 05:30 Discharge Summary Reason For Visit: RHABDOMYOLYSIS/FALL Current Active Problems Accidental drug overdose (Acute) Fall (Acute) Microcytic anemia (Acute) Rhabdomyolysis (Acute) Symptomatic anemia (Acute) Condition: Fair - Instructions Referrals: Kaci Alvarez MD [Primary Care Provider] - Disposition: HOME - Home Medications Comprehensive Discharge Medication List: Ambulatory Orders Escitalopram Oxalate [Lexapro -] 20 mg PO DAILY #0 tablet 07/11/13 Lorazepam [Ativan] 1 mg PO TID PRN 10/28/13 Oxycodone HCl/Acetaminophen [Percocet 10-325 mg Tablet] 1 - 2 tab PO Q4H PRN 12/08 Zolpidem Tartrate [Ambien] 10 mg PO HS PRN 10/28/13 Hydrocortisone [Cortef -] 10 mg PO DAILY 01/09/17 Metoprolol Succinate [Toprol XL -] 25 mg PO BID 01/09/17 Pantoprazole Sodium [Protonix -] 40 mg PO DAILY #60 tablet.ec 03/31/17
[2017-10-02 11:16] VITALS: BP 143/69; PULSE 70
--- NOTE | 2017-10-02 14:21 | PATH ---
Surgical Pathology Report Patient Name: DERRICK ALFONSO [facility]. Rec. #: [id number] /Age/Gender: 1950 (Age: 67) / F Account: [id number] Location: 4 PEDS/ADOL Taken: 10/01/2017 Received: 10/01/2017 Reported: 10/02/2017 Physicians: Juju Chowdhury MD Specimen(s) Received A: BX DUODENUM B: BX ANTRUM C: BX GE JUNCTION D: BX POLYPS PROXiMAL TRANSVERSE COLON E: BX POLYP RIGHT COLON Clinical History Preoperative diagnoses: Anemia Postoperative diagnosis: Food bezoar, atrophic gastritis, duodenal AVM, colon polyps, diverticulosis Final Diagnosis A. DUODENUM, SECOND PORTION AND BULB, BIOPSY: DUODENAL MUCOSA WITH FOCAL ACUTE AND CHRONIC DUODENITIS. B. STOMACH, ANTRUM, BIOPSY: GASTRIC ANTRAL MUCOSA WITH MILD TO MODERATE CHRONIC GASTRITIS. IMMUNOHISTOCHEMICAL STAIN FOR H. PYLORI IS NEGATIVE. C. GASTROESOPHAGEAL (GE) JUNCTION, BIOPSY: SQUAMOUS MUCOSA WITH MODERATE REFLUX ESOPHAGITIS. NO COLUMNAR MUCOSA, INTESTINAL METAPLASIA, OR DYSPLASIA IDENTIFIED. D. PROXIMAL TRANSVERSE COLON, POLYPS, POLYPECTOMY: TUBULAR ADENOMA(S). E. COLON, RECTUM, POLYP, POLYPECTOMY: TUBULAR ADENOMA. Electronically Signed Latisha Jimenez M.D. Gross Description A. Received in formalin, labeled "biopsy second portion of duodenum and duodenal bulb" are 3 soliman, irregular portions of soft tissue ranging from 0.3-0.4 cm. in greatest dimension. The specimens are submitted in toto in one cassette. B. Received in formalin, labeled "biopsy antrum" are 2 soliman, irregular portions of soft tissue measuring 0.2 and 0.4 cm. in greatest dimension. The specimens are submitted in toto in one cassette. C. Received in formalin, labeled "biopsy GE junction" is a soliman, irregular portion of soft tissue measuring 0.5 cm. in greatest dimension. The specimen is submitted in toto in one cassette. D. Received in formalin, labeled "biopsy polyps proximal transverse colon" are 4 soliman, irregular portions of soft tissue ranging from 0.1-0.4 cm. in greatest dimension. The specimens are submitted in toto in one cassette. E. Received in formalin, labeled "biopsy polyp right colon" are 2 soliman, irregular portions of soft tissue measuring 0.2 and 0.3 cm. in greatest dimension. The specimens are submitted in toto in one cassette. 10/01/201710/01/2017
== END 2017-10-02 12:12 | disposition home or self-care (01) | DRG 558 ==
LOC: JER 15:55 → JERBED 20:30 → J4S 09-27 05:50
PROVIDERS: ADMIT Family Medicine; ATTEND Family Medicine
PROC: 30233N1 Transfusion of Nonautologous Red Blood Cells into Peripheral Vein, Percutaneous Approach (ICD-10-PCS; principal; 2017-09-26)
PROC: 0DBK8ZX Excision of Ascending Colon, Via Natural or Artificial Opening Endoscopic, Diagnostic (ICD-10-PCS; 2017-10-01)
PROC: 0DBL8ZX Excision of Transverse Colon, Via Natural or Artificial Opening Endoscopic, Diagnostic (ICD-10-PCS; 2017-10-01)
PROC: 0DD98ZX Extraction of Duodenum, Via Natural or Artificial Opening Endoscopic, Diagnostic (ICD-10-PCS; 2017-10-01)
PROC: 0DD68ZX Extraction of Stomach, Via Natural or Artificial Opening Endoscopic, Diagnostic (ICD-10-PCS; 2017-10-01)
PROC: 0DD58ZX Extraction of Esophagus, Via Natural or Artificial Opening Endoscopic, Diagnostic (ICD-10-PCS; 2017-10-01)
DX: M62.82 Rhabdomyolysis (principal); K92.2 Gastrointestinal hemorrhage, unspecified; T84.53XA Infection and inflammatory reaction due to internal right knee prosthesis, initial encounter; J44.9 Chronic obstructive pulmonary disease, unspecified; F41.8 Other specified anxiety disorders; I12.9 Hypertensive chronic kidney disease with stage 1 through stage 4 chronic kidney disease, or unspecified chronic kidney disease; N18.9 Chronic kidney disease, unspecified; I34.1 Nonrheumatic mitral (valve) prolapse; K31.819 Angiodysplasia of stomach and duodenum without bleeding; B18.2 Chronic viral hepatitis C; S05.12XA Contusion of eyeball and orbital tissues, left eye, initial encounter; S70.00XA Contusion of unspecified hip, initial encounter; S40.012A Contusion of left shoulder, initial encounter; S40.011A Contusion of right shoulder, initial encounter; M47.892 Other spondylosis, cervical region; D50.9 Iron deficiency anemia, unspecified; K44.9 Diaphragmatic hernia without obstruction or gangrene; G47.09 Other insomnia; K63.5 Polyp of colon; K64.8 Other hemorrhoids; K31.84 Gastroparesis; K29.40 Chronic atrophic gastritis without bleeding; K57.90 Diverticulosis of intestine, part unspecified, without perforation or abscess without bleeding; T50.991A Poisoning by other drugs, medicaments and biological substances, accidental (unintentional), initial encounter; M17.0 Bilateral primary osteoarthritis of knee; M16.0 Bilateral primary osteoarthritis of hip; R26.89 Other abnormalities of gait and mobility; Y93.89 Activity, other specified; Z87.11 Personal history of peptic ulcer disease; Y92.098 Other place in other non-institutional residence as the place of occurrence of the external cause; W18.39XA Other fall on same level, initial encounter; Z96.653 Presence of artificial knee joint, bilateral; Z86.14 Personal history of Methicillin resistant Staphylococcus aureus infection; Z87.891 Personal history of nicotine dependence
CPT/HCPCS: 36415; 36430; 70450-TC; 71045-TC; 72125-TC; 73523-TC-FY; 76705-TC; 80048; 80053; 81003; 81015; 82105; 82550; 82553; 82728; 83540; 83550; 83605; 83690; 83735; 84100; 84484; 85025; 85027; 85610; 85730; 86850; 86900; 86901; 86922; 87086; 88305-TC; 93005; 93010; 97116-GP; 97161-GP; 99284-25; P9038; P9058

== ENCOUNTER 2018-08-01 19:03 | Inpatient (IN) | payer OTHER ==
--- NOTE | 2018-08-01 20:03 | PDOC ---
History of Present Illness - General Chief Complaint: Vomiting/Diarrhea Stated Complaint: Vomiting/Diarrhea Time Seen by Provider: 08/01/18 20:03 - History of Present Illness Initial Comments: 08/01/18 20:46 The patient is a 68 year old female with a PMH of chronic anemia, GI bleeds, hiatal hernia (large paraesophageal hernia s/p repair 06/12), s/p duodenal perf. repair, adrenal insufficiency, Hepatitis C, asthma, COPD, anxiety, anemia , osteoarthritis, and mitral valve prolapse, who presents to the emergency department accompanied by her grand daughter. She is complaining of cough with greenish sputum, fever, sore throat, lack of appetite, weakness that started 2 weeks ago. About week and a half she started having "bilious" vomiting. She also doesn't drink or urinate often and is complaining of constipation, last BM was one week ago. She also reports constant lower abdominal pain, worse with retching. The patient also doesn't take her home medications due to her condition. PMD: Kaci Alvarez Past History - Past Medical History Allergies/Adverse Reactions: Allergies Allergy/AdvReac Type Severity Reaction Status Date / Time No Known Drug Allergies Allergy Verified 08/01/18 20:31 tape AdvReac Uncoded 08/01/18 20:31 Home Medications: Ambulatory Orders Metoprolol Succinate [Toprol XL -] 25 mg PO BID 01/09/17 Docusate Sodium [Colace -] 200 mg PO BID 08/01/18 Escitalopram Oxalate [Lexapro -] 20 mg PO DAILY 08/01/18 LORazepam [Ativan] 1 mg PO TID PRN MDD 2mg 08/01/18 Ondansetron HCl [Zofran] 4 mg PO Q6H PRN 08/01/18 Pantoprazole Sodium [Protonix -] 40 mg PO DAILY 08/01/18 Polyethylene Glycol 3350 [Miralax 119 gm Btl -] 17 gm PO DAILY PRN 08/01/18 Zolpidem Tartrate [Ambien] 10 mg PO HS PRN MDD 5mg 08/01/18 Oxycodone HCl 10 mg PO Q6H 08/02/18 Anemia: Yes Asthma: Yes Cancer: No Cardiac Disorders: Yes (Mitral Valve Prolapse) CVA: No COPD: Yes CHF: No Dementia: No Diabetes: No GI Disorders: Yes (GASTRIC ULCER) Disorders: No HTN: Yes Hypercholesterolemia: No Liver Disease: No Psychiatric Problems: Yes (anxiety) Seizures: No Thyroid Disease: No - Surgical History Abdominal Surgery: Yes (HERNIA REPAIR FOR RUPTURED HERNIA) Appendectomy: Yes Cardiac Surgery: No Cholecystectomy: No Lung Surgery: No Neurologic Surgery: No Orthopedic Surgery: No - Reproductive History Cervical CA: No Dysfunctional Uterine Bleeding: No Ectopic : No Endometrial CA: No Polycystic Ovaries: No Tubal Ligation: No - Immunization History Td Vaccination: Yes Immunization Up to Date: Yes - Suicide/Smoking/Psychosocial Hx Smoking Status: Yes Smoking History: Never smoked Years of Tobacco Use: 20 Have you smoked in the past 12 months: No Number of Cigarettes Smoked Daily: 2 If you are a former smoker, when did you quit?: may 2013 Cigars Per Day: 0 'Breaking Loose' booklet given: 06/17/13 Hx Alcohol Use: No Drug/Substance Use Hx: No Substance Use Type: None Hx Substance Use Treatment: No Review of Systems - Review of Systems Able to Perform ROS?: Yes Constitutional: Yes: Symptoms Reported, See HPI, Fever, Loss of Appetite, Malaise, Weakness HEENTM: No: Symptoms Reported Respiratory: Yes: Symptoms reported, See HPI, Cough, Productive cough. No: Hemoptysis Cardiac (ROS): No: Symptoms Reported, See HPI ABD/GI: Yes: Symptoms Reported, See HPI, Constipated, Nausea, Poor Appetite, Poor Fluid Intake, Vomiting, Other (lower abdominal pain). No: Tarry Stools : Yes: Symptoms Reported (decreased), Frequency. No: Flank Pain, Hematuria Musculoskeletal: Yes: Symptoms Reported (knee pain), Joint Pain Integumentary: No: Symptoms Reported Neurological: Yes: Symptoms reported, Weakness *Physical Exam - Vital Signs Last Vital Signs Temp Pulse Resp BP Pulse Ox 100.6 F H 80 18 102/62 96 08/01/18 19:23 08/01/18 19:23 08/01/18 19:23 08/01/18 19:23 08/01/18 19:23 - Physical Exam General Appearance: Yes: Mild Distress HEENT: positive: EOMI, MARIA TERESA, Pale Conjunctivae Respiratory/Chest: positive: Crackles, Rales (more on right side), Rhonchi. negative: Accessory Muscle Use Cardiovascular: positive: Regular Rhythm, Regular Rate, S1, S2. negative: Murmur Musculoskeletal: positive: Normal Inspection. negative: CVA Tenderness Extremity: positive: Normal Inspection. negative: Pedal Edema, Swelling Neurologic: positive: Fully Oriented, Alert Moderate Sedation - Procedure Monitoring Vital Signs: Procedure Monitoring Vital Signs Temperature 100.6 F H 08/01/18 19:23 Pulse Rate 80 08/01/18 19:23 Respiratory Rate 18 08/01/18 19:23 Blood Pressure 102/62 08/01/18 19:23 O2 Sat by Pulse Oximetry (%) 96 08/01/18 19:23 ED Treatment Course - LABORATORY CBC & Chemistry Diagram: 08/01/18 20:39 08/01/18 20:39 Medical Decision Making - Medical Decision Making 08/01/18 21:00 The patient presents with productive cough, fever, chills, abdominal pain, vomiting, nausea, decreased frequency in urination, constipation. Differential diagnosis includes pneumonia, URI, abdominal obstruction, colitis. We orseded CBC with diff, CMP, UA, urine cultures, blood cultures and sputum cultures, LA. She was given NS, Tylenol. We ordered EKG and CXR. 08/01/18 21:44 added Zofran and abdominal CT with IV contrast 08/01/18 23:33 Hypokalemia was corrected with 2 bags of KCL 08/02/18 02:21 CT chest and abdomen;positive for RUL pneumonia and possible colitis. We added Vancomycin, Zosyn and Flagyl. 08/02/18 02:22 Microblog sent for admission. Discussed earlier with Dr Snyder. *DC/Admit/Observation/Transfer Diagnosis at time of Disposition: Pneumonia, Colitis - Discharge Dispostion Condition at time of disposition: Stable Decision to Admit order: Yes - Referrals Referrals: Kaci Alvarez MD [Primary Care Provider] - - Patient Instructions - Post Discharge Activity
[2018-08-01] MEDS ORDERED: ACETAMINOPHEN 1000 MG/100 ML VIAL (NON FORMULARY) IVPB ONE (20:38)
[2018-08-01] MEDS ORDERED: SODIUM CHLORIDE 0.9% 500 ML INFUS.BAG IV ONE ×2 (20:39→22:44)
[2018-08-01] MEDS ORDERED: ACETAMINOPHEN INJECTION 100 ML IVPB ONE (21:30)
[2018-08-01 21:38] LABS: BASO % 0.5 % (0-2.0); HEMATOCRIT 35.5 % (32.4-45.2); HEMOGLOBIN 13.2 GM/dL (10.7-15.3); LYMPH % 13.9 % (8-40); MCH 31.6 pg (25.7-33.7); MCHC 37.1 g/dl (32.0-36.0); MEAN CELL VOLUME 85.2 fl (80-96); MEAN PLT VOLUME 7.5 fl (7.5-11.1); MONO % 6.3 % (3.8-10.2); NEUT % 79.3 % (42.8-82.8); PLATELET COUNT 201 K/MM3 (134-434); RBC 4.16 M/mm3 (3.60-5.2); RDW 14.9 % (11.6-15.6)
[2018-08-01] MEDS ORDERED: ONDANSETRON 4 MG/2 ML VIAL IVPUSH ONE (21:43)
[2018-08-01] MEDS ORDERED: ONDANSETRON 4 MG/2 ML VIAL ONE (21:56)
[2018-08-01 22:31] LABS: ALBUMIN 3.2 g/dl (3.4-5.0); ALK PHOS 78 U/L (45-117); ANION GAP 12 MMOL/L (8-16); BILIRUBIN,TOTAL 0.9 mg/dL (0.2-1); BLOOD UREA NITROGEN 18 mg/dL (7-18); CALCIUM 7.9 mg/dL (8.5-10.1); CHLORIDE 91 mmol/L (98-107); CO2 22 mmol/L (21-32); GLUCOSE,RANDOM 86 mg/dL (74-106); SGOT/AST 26 U/L (15-37); SGPT/ALT 11 U/L (13-61); SODIUM 125 mmol/L (136-145); TOT PROT 6.4 g/dl (6.4-8.2)
[2018-08-01] MEDS ORDERED: KCL 10 MEQ IVPB 10 MEQ/100 ML INFUS.BAG IVPB ONE (22:51)
[2018-08-01] MEDS: KCL 10 MEQ IVPB 10 MEQ/100 ML INFUS.BAG IVPB SCH (23:03)
[2018-08-01 23:17] LABS: POTASSIUM 3.2 mmol/L (3.5-5.1)
[2018-08-02] MEDS ORDERED: KCL 10 MEQ IVPB 10 MEQ/100 ML INFUS.BAG IVPB ONE (00:07)
[2018-08-02] MEDS: KCL 10 MEQ IVPB 10 MEQ/100 ML INFUS.BAG IVPB SCH ×4 (00:15→19:28)
--- NOTE | 2018-08-02 00:28 | PDOC ---
Attending Attestation - Resident Resident Name: RonaldMaryellen - ED Attending Attestation I have performed the following: I have examined & evaluated the patient, The case was reviewed & discussed with the resident, I agree w/resident's findings & plan, Exceptions are as noted - HPI HPI: 08/02/18 00:22 The patient is a 68 year old female presenting with her granddaughter, with a significant past medical history of chronic anemia, GI bleeds, extensive large hiatal hernia repair, s/p duodenal perf., adrenal insufficiency, Hepatitis C s/ p treatment, asthma, COPD, anxiety, osteoarthritis, and mitral valve prolapse who presents to the ED complaining of fever, cough, sore throat, loss of appetite, green emesis and weakness for the past 2 weeks. She notes that her fluid intake is decreased and her urine output is also decreased. She reports that her last bowel movement was 1 week ago. She notes that she has been experiencing lower abdominal pain that has been worsening during this time frame. Patient is currently non compliant with her home medications. Pt's granddaughter reports she is a nurse and has not wanted to come to the hospital. The patient denies chest pain, shortness of breath, headache, focal weakness/ numbness and dizziness. Denies chills, diarrhea, dysuria, frequency, urgency and hematuria. Allergies: Tape Past surgical history: Appendectomy, hernia repair Social History: No alcohol, tobacco or drug use reported - Physicial Exam PE: 08/02/18 00:22 agree with resident exam - Medical Decision Making 08/02/18 00:28 68yo F with multiple medical problems including multiple abd surgeries presents to the ED with fever, cough, bilious emesis, constipation, and lower abd pain. Vitals remarkable for fever. Exam with lower abd ttp. DDx includes but not limited to SBO vs LBO vs colitis vs UTI. Plan -labs -UA -pain control, antipyretics -IVF -anticipate admission
[2018-08-02 00:50] LABS: MAGNESIUM 1.8 mg/dL (1.8-2.4); PHOSPHOROUS 2.3 mg/dL (2.5-4.9)
[2018-08-02] MEDS ORDERED: VANCOMYCIN 1,500 MG in DEXTROSE 5%-WATER - 500 ML IVPB ONE (02:16)
[2018-08-02] MEDS ORDERED: PIPERACILLIN/TAZOB 4.5 GM 4.5 GM in DEXTROSE 5%-WATER 100 ML IVPB ONE (02:17)
[2018-08-02] MEDS ORDERED: SODIUM CHLORIDE 0.9% 500 ML INFUS.BAG IV ONE (02:30)
--- NOTE | 2018-08-02 03:19 | PN ---
Teaching Attending Note Name of Resident: Florentin Brunson ATTENDING PHYSICIAN STATEMENT I saw and evaluated the patient. I reviewed the resident's note and discussed the case with the resident. I agree with the resident's findings and plan as documented. SUBJECTIVE: Patient is a 68 year old woman with a PMH of chronic anemia, GI bleeds, hiatal hernia (large paraesophageal hernia s/p repair 06/12), s/p duodenal perf. repair , adrenal insufficiency, Hepatitis C, asthma, COPD, anxiety, anemia, osteoarthritis, and mitral valve prolapse, who presents to the ER with complaint of cough with greenish sputum, fever, sore throat, lack of appetite, weakness that started 2 weeks ago. She is accompanied by her grand daughter and has had "bilious" vomiting for about week and a half. She also has not been ingest liquids or urinating often and is complaining of constipation - last BM was one week ago. She also reports constant lower abdominal pain, worse with retching. The patient also has not been taking her home medications due to her condition. OBJECTIVE: Alert Vital Signs Period Temp Pulse Resp BP Sys/Xiao Pulse Ox Last 24 Hr 98.1 F-100.6 F 73-80 18 102-122/62-67 94-96 HEENT: No Jaundice, eye redness or discharge, PERRLA, EOMI. Normocephalic, atraumatic. External ears are normal and hearing is grossly intact. No nasal discharge. Neck: Supple, nontender. No palpable adenopathy or thyromegaly. No JVD Chest: Good effort. Clear to auscultation and percussion. Heart: Regular. No S3, rub or murmur Abdomen: Not distended, soft, nontender and no HSM. No rebound or guarding. Normoactive bowel sounds. Ext: Peripheral pulses intact. No leg edema. Skin: Warm and dry. No petechiae, rash or ecchymosis. Neuro: Alert. Oriented x3. CN 2-12 grossly intact. Sensation grossly intact in all four extremities and DTR are symmetric. Current Medications Generic Name Dose Route Start Last Admin Trade Name Freq PRN Reason Stop Dose Admin Vancomycin HCl 1,500 mg/ 500 mls @ 250 mls/hr 08/02/18 02:16 Dextrose IVPB 08/02/18 04:15 ONCE ONE Protocol Home Medications Medication Instructions Recorded Metoprolol Succinate [Toprol XL -] 25 mg PO BID 01/09/17 Docusate Sodium [Colace -] 200 mg PO BID 08/01/18 Escitalopram Oxalate [Lexapro -] 20 mg PO DAILY 08/01/18 LORazepam [Ativan] 1 mg PO TID PRN MDD 2mg 08/01/18 Ondansetron HCl [Zofran] 4 mg PO Q6H PRN 08/01/18 Pantoprazole Sodium [Protonix -] 40 mg PO DAILY 08/01/18 Polyethylene Glycol 3350 [Miralax 17 gm PO DAILY PRN 08/01/18 119 gm Btl -] Zolpidem Tartrate [Ambien] 10 mg PO HS PRN MDD 5mg 08/01/18 Oxycodone HCl 10 mg PO Q6H 08/02/18 Abnormal Lab Results 08/01/18 08/01/18 08/01/18 20:39 20:39 21:30 WBC 11.0 H MCHC 37.1 H Absolute Neuts (auto) 8.7 H Sodium 125 L Potassium 3.2 L Chloride 91 L Calcium 7.9 L Phosphorus 2.3 L ALT 11 L Albumin 3.2 L ASSESSMENT AND PLAN: 1. Colitis and Pneumonia - CXR shows cardiomegaly, increased interstitial markings and obscured left CP angle. CT scan shows RUL? infiltrate and possible colitis. Will send urine for legionella antigen and treat with IV Zosyn and Azithromycin. Patient has a history of right knee wound MRSA infection in December 2016 - got one dose of vancomycin in the ER today. Will send sputum for culture and consult ID about need for continued isolation (for MRSA) and whether to continue vancomycin. Will treat constipation with Miralax and Senna and refer for outpatient colonoscopy. Hyponatremia likely due to adrenal insufficiency and/or vomiting, while the latter may explain hypokalemia. As per her medical records, she is supposed to be on Hydrocortisone 10 mg po daily for adrenal insufficiency, but it is not on her current medication list. Got 2 liters IV NS in the ER for low sodium. Will repeat BMP before continuing IV NS, check Mg+ level, give KCL, zofran and IV solumedrol. Treat with neutraphos or K phospahte. Clarify with family whether she stopped taking hydrocortisone. 2. DVT prophylaxis - Lovenox 40 mg SQ q 24 hours. 3. Advance directives - Full code
[2018-08-02] MEDS ORDERED: NAPH,MB-DB/K PH,MBDB POWDER PACKET PO ONE (03:59)
[2018-08-02] MEDS ORDERED: PIPERACILLIN/TAZOB 4.5 GM 4.5 GM/100 ML BAG IVPB ONE (04:25)
--- NOTE | 2018-08-02 04:38 | HP ---
CHIEF COMPLAINT: vomiting, cough, weakness, abdominal pain 2 weeks PCP: Kaci Alvarez HISTORY OF PRESENT ILLNESS: 68 yo female with PMH of Chronic anemia, GI Bleeds, Hiatal hernia s/p repair, duodenal perf s/p repair, adrenal insufficiency, Hep C s/p treatment, Anxiety, ROSANA, MVP, admitted with complaint of 2 weeks of cough productive for green sputum, fever, sore throat, decreased PO intake, nausea, abdominal pain, bilious vomiting and no bowel movement for one week. Pt is resting comfortably and wants to sleep at this time so most of history is taken from the granddaughter who knows her history well. 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 She states that for the last two weeks these symptoms have been present but have been worsening throughout that time. The patient had initially refused to see a doctor but was convinced by the granddaughter when her symptoms worsened and her weakness was not improving. ER course was notable for: (1) CXR, CT Chest/Abdomen/Pelvis, RUL consolidation, distal descending and sigmoid colon suspicious for colitis (2) Hyponatremia, hypokalemia (3) 2L NS, Vanc/Zosyn/Metronidazole Recent Travel: none PAST MEDICAL HISTORY: Chronic anemia, GI Bleeds, Hiatal hernia s/p repair, duodenal perf s/p repair, adrenal insufficiency, Hep C s/p treatment, Anxiety, ROSANA, MVP PAST SURGICAL HISTORY: Numerous Abdominal surgeries including duodenal perforation repair, hiatal hernia repair Social History: Smoking: Denies Alcohol: Denies Drugs: Denies Family History: Allergies No Known Drug Allergies Allergy (Verified 08/01/18 20:31) tape Adverse Reaction (Uncoded 08/01/18 20:31) HOME MEDICATIONS: Home Medications Medication Instructions Recorded Metoprolol Succinate [Toprol XL -] 25 mg PO BID 01/09/17 Docusate Sodium [Colace -] 200 mg PO BID 08/01/18 Escitalopram Oxalate [Lexapro -] 20 mg PO DAILY 08/01/18 LORazepam [Ativan] 1 mg PO TID PRN MDD 2mg 08/01/18 Ondansetron HCl [Zofran] 4 mg PO Q6H PRN 08/01/18 Pantoprazole Sodium [Protonix -] 40 mg PO DAILY 08/01/18 Polyethylene Glycol 3350 [Miralax 17 gm PO DAILY PRN 08/01/18 119 gm Btl -] Zolpidem Tartrate [Ambien] 10 mg PO HS PRN MDD 5mg 08/01/18 Oxycodone HCl 10 mg PO Q6H 08/02/18 REVIEW OF SYSTEMS CONSTITUTIONAL: generalized weakness, malaise, loss of appetite, Absent: fever, chills, diaphoresis, weight change HEENT: throat pain, Absent: rhinorrhea, nasal congestion, throat swelling, difficulty swallowing, mouth swelling, ear pain, eye pain, visual changes CARDIOVASCULAR: Absent: chest pain, syncope, palpitations, irregular heart rate, lightheadedness , peripheral edema RESPIRATORY: cough, Absent: shortness of breath, dyspnea with exertion, orthopnea, wheezing, stridor, hemoptysis GASTROINTESTINAL: abdominal pain, nausea, vomiting, constipation Absent: abdominal distension, , diarrhea, melena, hematochezia GENITOURINARY: Absent: dysuria, frequency, urgency, hesitancy, hematuria, flank pain, genital pain MUSCULOSKELETAL: Absent: myalgia, arthralgia, joint swelling, back pain, neck pain SKIN: Absent: rash, itching, pallor HEMATOLOGIC/IMMUNOLOGIC: easy bruising Absent: easy bleeding, , lymphadenopathy, frequent infections ENDOCRINE: Absent: unexplained weight gain, unexplained weight loss, heat intolerance, cold intolerance NEUROLOGIC: Absent: headache, focal weakness or paresthesias, dizziness, unsteady gait, seizure, mental status changes, bladder or bowel incontinence PSYCHIATRIC: anxiety (hx, not presently a complaint on evaluation) Absent: , depression, suicidal or homicidal ideation, hallucinations. PHYSICAL EXAMINATION Vital Signs - 24 hr 08/01/18 08/01/18 19:23 23:57 Temperature 100.6 F H 98.1 F Pulse Rate 80 Pulse Rate [ 73 Left Radial] Respiratory 18 Rate Blood Pressure 102/62 Blood Pressure 122/67 [Left Arm] O2 Sat by Pulse 96 94 L Oximetry (%) GENERAL: A&O, no acute distress HEAD: Normocephalic, atraumatic. EYES: PERRL, no scleral icterus EARS, NOSE, THROAT: oropharynx clear without exudates. Moist mucous membranes. NECK: supple without lymphadenopathy LUNGS: Rhonchi in RUL, otherwise CTA HEART: Regular rate and rhythm, normal S1 and S2 without murmur ABDOMEN: Soft, nontender to palpation, normoactive bowel sounds EXTREMITIES: 2+ pulses, warm, well-perfused. No peripheral edema. b/l scar on knee from knee replacements NEUROLOGICAL: Cranial nerves II-XII grossly intact. Normal speech. PSYCHIATRIC: Cooperative. Good eye contact. Appropriate mood and affect. SKIN: Warm, dry, no rashes or lesions noted Laboratory Results - last 24 hr 08/01/18 08/01/18 08/01/18 20:39 20:39 20:39 WBC 11.0 H RBC 4.16 Hgb 13.2 Hct 35.5 D MCV 85.2 MCH 31.6 D MCHC 37.1 H RDW 14.9 D Plt Count 201 MPV 7.5 Absolute Neuts (auto) 8.7 H Neutrophils % 79.3 D Lymphocytes % 13.9 D Monocytes % 6.3 Eosinophils % 0.0 D Basophils % 0.5 Nucleated RBC % 0 Sodium 125 L Potassium 3.2 L Chloride 91 L Carbon Dioxide 22 Anion Gap 12 BUN 18 Creatinine 1.0 Creat Clearance w eGFR 54.97 Random Glucose 86 Lactic Acid 1.1 Calcium 7.9 L Phosphorus Magnesium Total Bilirubin 0.9 AST 26 ALT 11 L Alkaline Phosphatase 78 Total Protein 6.4 Albumin 3.2 L 08/01/18 21:30 WBC RBC Hgb Hct MCV MCH MCHC RDW Plt Count MPV Absolute Neuts (auto) Neutrophils % Lymphocytes % Monocytes % Eosinophils % Basophils % Nucleated RBC % Sodium Potassium Chloride Carbon Dioxide Anion Gap BUN Creatinine Creat Clearance w eGFR Random Glucose Lactic Acid Calcium Phosphorus 2.3 L Magnesium 1.8 Total Bilirubin AST ALT Alkaline Phosphatase Total Protein Albumin ASSESSMENT/PLAN: 68 yo female with PMH of Chronic anemia, GI Bleeds, Hiatal hernia s/p repair, duodenal perf s/p repair, adrenal insufficiency, Hep C s/p treatment, Anxiety, ROSANA, MVP, admitted with complaint of 2 weeks of cough productive for green sputum, fever, sore throat, decreased PO intake, nausea, abdominal pain, bilious vomiting and no bowel movement for one week. RUL Pneumonia, questionably aspiration -RUL consolidation noted on CT chest, high suspicion for aspiration pneumonia, though timeline does not fully fit with productive cough and other symptoms beginning prior to the abdominal pain and vomiting. -Will cover for Anaerobes and atypicals overnight and consult ID for further Abx recommendations -Zosyn 3.375 gm IV Q8, Azithromycin 500 mg IV daily for now Colitis and Constipation -Pt states she has not had a bowel movement in 1 week and is complaining of nausea, vomiting, and abdominal pain -No signs of small or large bowel obstruction on CT scan, though likely distal colitis noted -Will give Miralax tonight and BID in addition to Senna, hold for > 3 bowel movements daily Adrenal Insufficiency w/ HypoKalemia and HypoNatremia -Pt not currently on chronic steroids for unclear reason, though has been in her history -Could possibly be cause of electrolyte abnormalities -Will give stress dose SoluMedrol 125 mg IV followed by 40 mg IV Daily -replete lytes, though not more than 8 in 24 hours for Na -Will repeat Stat BMP as pt was given 2L NS in ED and adjust fluids as necessary with above infection in mind Anxiety -Currently stable with no signs or complaints of anxiety -Verify home dose ativan and continue PRN Chronic Anemia -Currently above baseline H/H, recently 04/21 , today -Possibly due to volume contraction, repeat CBC pending -Monitor for acute loss, if drops rapidly consider stool occult testing with hx of GI bleeds, though likely dilutional once fluid resuscitated DVT Prophylaxis -Lovenox 40 mg SQ Daily FEN -Fluids: hold until repeat BMP -Electrolytes: As above, BMP Now -Nutrition: Clear liquids, advance as tolerated Disposition Med/Surg Case discussed in its entirety with attending Visit type - Emergency Visit Emergency Visit: Yes Care time: The patient presented to the Emergency Department on the above date and was hospitalized for further evaluation of their emergent condition. - New Patient This patient is new to me today: Yes Date on this admission: 08/02/18 - Critical Care Critical Care patient: No
[2018-08-02 04:41] LABS: URINE APPEARANCE CLEAR; URINE BILIRUBIN NEGATIVE (<2.0 mg/dL); URINE COLOR LTYELLOW; URINE GLUCOSE (UA) NEGATIVE (NEGATIVE); URINE KETONE NEGATIVE (NEGATIVE); URINE LEUK ESTERASE NEGATIVE (NEGATIVE); URINE NITRITE NEGATIVE (NEGATIVE); URINE PROTEIN NEGATIVE (NEGATIVE); URINE UROBILINOGEN NEGATIVE mg/dL (0.2-1.0)
[2018-08-02] MEDS ORDERED: methylPREDNISolone NA SUCC 125 MG/2 ML VIAL IVPUSH ONE (06:44)
[2018-08-02] MEDS ORDERED: methylPREDNISolone NA SUCC 40 MG/1 ML VIAL IVPUSH SCH (10:00)
[2018-08-02] MEDS ORDERED: AZITHROMYCIN IVPB 500 MG/250 ML BAG IVPB SCH (10:00)
[2018-08-02] MEDS ORDERED: PIPERACILLIN/TAZOB 3.375 GM 3.375 GM in DEXTROSE 5%-WATER - 50 ML IVPB ONE (10:00)
[2018-08-02 10:04] LABS: ANION GAP 13 MMOL/L (8-16); BLOOD UREA NITROGEN 16 mg/dL (7-18); CHLORIDE 105 mmol/L (98-107); CO2 18 mmol/L (21-32); CREATININE 0.8 mg/dL (0.55-1.3); GLUCOSE,RANDOM 56 mg/dL (74-106); MAGNESIUM 1.9 mg/dL (1.8-2.4); PHOSPHOROUS 1.6 mg/dL (2.5-4.9); SODIUM 136 mmol/L (136-145)
[2018-08-02 10:24] LABS: BASO % 0.2 % (0-2.0); EOS % 0.1 % (0-4.5); HEMATOCRIT 33.1 % (32.4-45.2); HEMOGLOBIN 11.3 GM/dL (10.7-15.3); LYMPH % 4.4 % (8-40); MCH 29.9 pg (25.7-33.7); MCHC 34.1 g/dl (32.0-36.0); MEAN CELL VOLUME 87.5 fl (80-96); MEAN PLT VOLUME 7.3 fl (7.5-11.1); NEUT % 92.3 % (42.8-82.8); PLATELET COUNT 150 K/MM3 (134-434); RBC 3.78 M/mm3 (3.60-5.2); WHITE BLOOD COUNT 6.2 K/mm3 (4.0-10.0)
[2018-08-02 11:20] LABS: CALCIUM 6.7 mg/dL (8.5-10.1)
[2018-08-02 11:45] LABS: POTASSIUM 2.6 mmol/L (3.5-5.1)
[2018-08-02] MEDS: POLYETHYLENE GLYCOL 3350 119 GM BTL PO SCH ×2 (12:00→21:59)
[2018-08-02] MEDS: ENOXAPARIN NA (PORCINE) 40 MG/0.4 ML DISP.SYRIN SQ SCH (12:36)
[2018-08-02 13:20] LABS: ANISOCYTOSIS 0; MACROCYTOSIS 0; PLATELET ESTIMATE DECREASED
[2018-08-02] MEDS ORDERED: POTASSIUM CHLORIDE ORAL LIQUID 20 MEQ/15 ML PO ONE ×2 (14:40→17:48)
--- NOTE | 2018-08-02 15:05 | CON.ID ---
Consult Consult Specialty:: infectious diseaseses Reason for Consultation:: vomiting,pneumonia - History of Present Illness Chief Complaint: vomiting History of Present Illness: 68 year old female with past medical history of chronic anemia, GI bleeds, extensive large hiatal hernia repair, s/p duodenal perf., adrenal insufficiency , Hepatitis C s/p treatment, asthma, COPD, anxiety, osteoarthritis, and mitral valve prolapse who presents to the ED complaining of fever, cough, sore throat, loss of appetite, green emesis and weakness for the past 2 weeks. She notes that her fluid intake is decreased and her urine output is also decreased. She reports that her last bowel movement was 1 week ago. She notes that she has been experiencing lower abdominal pain that has been worsening during this time frame. Patient is currently non compliant with her home medications. The patient denies chest pain, shortness of breath, headache, focal weakness/ numbness and dizziness. Denies chills, diarrhea, dysuria, frequency, urgency and hematuria. 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 osteomyelitis) Endocrine: Yes: Other (adrenal insufficiency) - Past Surgical History Past Surgical History: Yes: Hysterectomy, Joint Replacement (Ttl Knee replacement x 2 right knee with 2 right knee revisions, Ttl Left knee replacement. MRSA infection) - Alcohol/Substance Use Hx Alcohol Use: No History of Substance Use: reports: None - Smoking History Smoking history: Never smoked Have you smoked in the past 12 months: No Aproximately how many cigarettes per day: 2 If you are a former smoker, when did you quit?: may 2013 - Social History ADL: Independent (lives in senior building without stairs, ambulated with [place]) History of Recent Travel: No Home Medications - Allergies Allergies/Adverse Reactions: Allergies Allergy/AdvReac Type Severity Reaction Status Date / Time No Known Drug Allergies Allergy Verified 08/01/18 20:31 tape AdvReac Uncoded 08/01/18 20:31 - Home Medications Home Medications: Ambulatory Orders Metoprolol Succinate [Toprol XL -] 25 mg PO BID 01/09/17 Docusate Sodium [Colace -] 200 mg PO BID 08/01/18 Escitalopram Oxalate [Lexapro -] 20 mg PO DAILY 08/01/18 LORazepam [Ativan] 1 mg PO TID PRN MDD 2mg 08/01/18 Ondansetron HCl [Zofran] 4 mg PO Q6H PRN 08/01/18 Pantoprazole Sodium [Protonix -] 40 mg PO DAILY 08/01/18 Polyethylene Glycol 3350 [Miralax 119 gm Btl -] 17 gm PO DAILY PRN 08/01/18 Zolpidem Tartrate [Ambien] 10 mg PO HS PRN MDD 5mg 08/01/18 Oxycodone HCl 10 mg PO Q6H 08/02/18 Review of Systems - Review of Systems Constitutional: reports: No Symptoms Eyes: reports: No Symptoms HENT: reports: No Symptoms Neck: reports: No Symptoms Cardiovascular: reports: No Symptoms Respiratory: reports: No Symptoms Gastrointestinal: reports: Abdominal Pain, Vomiting Genitourinary: reports: No Symptoms Musculoskeletal: reports: No Symptoms Integumentary: reports: No Symptoms Neurological: reports: No Symptoms Endocrine: reports: No Symptoms Hematology/Lymphatic: reports: No Symptoms Psychiatric: reports: No Symptoms Physical Exam Vital Signs: Vital Signs Temperature 97.2 F L 08/02/18 07:00 Pulse Rate 72 08/02/18 07:00 Respiratory Rate 18 08/02/18 07:00 Blood Pressure 121/72 08/02/18 07:00 O2 Sat by Pulse Oximetry (%) 98 08/02/18 07:00 Constitutional: Yes: Well Nourished, Calm, Mild Distress Eyes: Yes: Conjunctiva Clear HENT: Yes: Atraumatic, Normocephalic Neck: Yes: Supple, Trachea Midline Cardiovascular: Yes: Regular Rate and Rhythm Respiratory: Yes: Regular, CTA Bilaterally Gastrointestinal: Yes: Soft, Hypoactive Bowel Sounds, Tenderness, Vomiting, Other (abd scars look good) Musculoskeletal: Yes: WNL Extremities: Yes: WNL Neurological: Yes: Alert, Oriented Psychiatric: Yes: Alert, Oriented Labs: CBC, BMP 08/02/18 09:15 08/02/18 09:15 Imaging - Results Chest X-ray: Report Reviewed, Image Reviewed X-ray: Report Reviewed, Image Reviewed Assessment/Plan RUL Pneumonia Colitis/Constipation Adrenal Insufficiency HypoKalemia HypoNatremia Hypophosphatemia Anxiety Chronic Anemia plan replace electrolytes will start patient on zosyn iv fluids monitor vomiting rest as per the team replace electrolytes
[2018-08-02] MEDS ORDERED: MORPHINE SULFATE 2 MG/ML VIAL IVPUSH ONE (15:19)
[2018-08-02] MEDS ORDERED: DEXTROSE 5%-0.45% SALINE 1,000 ML IV SCH (15:30)
--- NOTE | 2018-08-02 16:09 | PN ---
Physical Exam: SUBJECTIVE: Patient seen and examined. Reports significant pain in both legs and nausea. OBJECTIVE: Vital Signs Period Temp Pulse Resp BP Sys/Xiao Pulse Ox Last 24 Hr 97.2 F-100.6 F 72-80 18-18 102-122/62-72 94-98 GENERAL: Elderly, frail, appears uncomfortable, fully oriented, HEAD: Normal with no signs of trauma. EYES: PERRL, extraocular movements intact, sclera anicteric, conjunctiva clear. No ptosis. ENT: Ears normal, nares patent, oropharynx clear without exudates, moist mucous membranes. NECK: Trachea midline, full range of motion, supple. LUNGS: Ronchorous breath sounds in ruq HEART: Regular rate and rhythm, S1, S2 without murmur, rub or gallop. ABDOMEN: Soft, diffusely TTP, nondistended, normoactive bowel sounds, no guarding, no rebound, no hepatosplenomegaly, no masses. EXTREMITIES: 2+ pulses, warm, well-perfused, no edema. NEUROLOGICAL: No facial droop, tongue midline, normal speech, gait not observed. PSYCH: Normal mood, normal affect. SKIN: Warm, dry, normal turgor, no rashes or lesions noted Laboratory Results - last 24 hr 08/01/18 08/01/18 08/01/18 11:20 20:39 20:39 WBC 11.0 H RBC 4.16 Hgb 13.2 Hct 35.5 D MCV 85.2 MCH 31.6 D MCHC 37.1 H RDW 14.9 D Plt Count 201 MPV 7.5 Absolute Neuts (auto) 8.7 H Neutrophils % 79.3 D Neutrophils % (Manual) Band Neutrophils % Lymphocytes % 13.9 D Lymphocytes % (Manual) Monocytes % 6.3 Monocytes % (Manual) Eosinophils % 0.0 D Eosinophils % (Manual) Basophils % 0.5 Basophils % (Manual) Myelocytes % (Man) Promyelocytes % (Man) Blast Cells % (Manual) Nucleated RBC % 0 Metamyelocytes Hypochromia Platelet Estimate Polychromasia Poikilocytosis Anisocytosis Microcytosis Macrocytosis Sodium 125 L Potassium 3.2 L Chloride 91 L Carbon Dioxide 22 Anion Gap 12 BUN 18 Creatinine 1.0 Creat Clearance w eGFR 54.97 Random Glucose 86 Lactic Acid Calcium 7.9 L Phosphorus Magnesium Total Bilirubin 0.9 AST 26 ALT 11 L Alkaline Phosphatase 78 Total Protein 6.4 Albumin 3.2 L Urine Color Urine Appearance Urine pH Ur Specific [place] Urine Protein Urine Glucose (UA) Urine Ketones Urine Blood Urine Nitrite Urine Bilirubin Urine Urobilinogen Ur Leukocyte Esterase Influenza A (Rapid) Negative Influenza B (Rapid) Negative 08/01/18 08/01/18 08/02/18 20:39 21:30 03:10 WBC RBC Hgb Hct MCV MCH MCHC RDW Plt Count MPV Absolute Neuts (auto) Neutrophils % Neutrophils % (Manual) Band Neutrophils % Lymphocytes % Lymphocytes % (Manual) Monocytes % Monocytes % (Manual) Eosinophils % Eosinophils % (Manual) Basophils % Basophils % (Manual) Myelocytes % (Man) Promyelocytes % (Man) Blast Cells % (Manual) Nucleated RBC % Metamyelocytes Hypochromia Platelet Estimate Polychromasia Poikilocytosis Anisocytosis Microcytosis Macrocytosis Sodium Potassium Chloride Carbon Dioxide Anion Gap BUN Creatinine Creat Clearance w eGFR Random Glucose Lactic Acid 1.1 Calcium Phosphorus 2.3 L Magnesium 1.8 Total Bilirubin AST ALT Alkaline Phosphatase Total Protein Albumin Urine Color Ltyellow Urine Appearance Clear Urine pH 6.0 Ur Specific [place] 1.012 Urine Protein Negative Urine Glucose (UA) Negative Urine Ketones Negative Urine Blood Negative Urine Nitrite Negative Urine Bilirubin Negative Urine Urobilinogen Negative Ur Leukocyte Esterase Negative Influenza A (Rapid) Influenza B (Rapid) 08/02/18 08/02/18 09:15 09:15 WBC 6.2 RBC 3.78 Hgb 11.3 Hct 33.1 MCV 87.5 MCH 29.9 MCHC 34.1 RDW 15.0 Plt Count 150 D MPV 7.3 L Absolute Neuts (auto) 5.7 Neutrophils % 92.3 H Neutrophils % (Manual) 95.0 H Band Neutrophils % 0.0 Lymphocytes % 4.4 L D Lymphocytes % (Manual) 2.0 L Monocytes % 3.0 L Monocytes % (Manual) 2 L Eosinophils % 0.1 D Eosinophils % (Manual) 0.0 Basophils % 0.2 Basophils % (Manual) 1.0 Myelocytes % (Man) 0 Promyelocytes % (Man) 0 Blast Cells % (Manual) 0 Nucleated RBC % 0 Metamyelocytes 0 Hypochromia 0 Platelet Estimate Decreased Polychromasia 0 Poikilocytosis 0 Anisocytosis 0 Microcytosis 1+ Macrocytosis 0 Sodium 136 Potassium 2.6 L* Chloride 105 Carbon Dioxide 18 L Anion Gap 13 BUN 16 Creatinine 0.8 Creat Clearance w eGFR > 60 Random Glucose 56 L Lactic Acid Calcium 6.7 L* Phosphorus 1.6 L Magnesium 1.9 Total Bilirubin AST ALT Alkaline Phosphatase Total Protein Albumin Urine Color Urine Appearance Urine pH Ur Specific [place] Urine Protein Urine Glucose (UA) Urine Ketones Urine Blood Urine Nitrite Urine Bilirubin Urine Urobilinogen Ur Leukocyte Esterase Influenza A (Rapid) Influenza B (Rapid) Active Medications Generic Name Dose Route Start Last Admin Trade Name Freq PRN Reason Stop Dose Admin Enoxaparin Sodium 40 mg 08/02/18 10:00 Lovenox - SQ DAILY ALFREDA Potassium Chloride 10 meq in 100 mls @ 100 mls/hr 08/02/18 14:45 Potassium Chloride 10 Meq Premix Ivpb - IVPB 08/02/18 17:44 Q60M ALFREDA Piperacillin Sod/Tazobactam 50 mls @ 100 mls/hr 08/02/18 18:00 Sod 3.375 gm/ Dextrose IVPB Q8H-IV ALFREDA Protocol Dextrose/Sodium Chloride 1,000 mls @ 75 mls/hr 08/02/18 15:30 D5-1/2ns - IV ASDIR ALFREDA Methylprednisolone Sodium Succinate 40 mg 08/03/18 10:00 Solu-Medrol - IVPUSH DAILY ALFREDA Polyethylene Glycol 17 gm 08/02/18 10:00 Miralax (For Daily Use) - PO BID ALFREDA Senna 1 tab 08/02/18 22:00 Senna - PO HS ALFREDA ASSESSMENT/PLAN: 68 year old female with PMH significant for anemia, GI bleed, hiatal hernia s/ p repair, duodenal perf s/p repair, adrenal insufficiency, hep C s/p treatment, anxiety, ROSANA, MVP, presented to the ED with 1 week of frequent vomiting as well as 2 weeks of cough and sore throat. CT showed RUQ consolidation, CT of abdomen negative for SBO but showed some distal colitis. Patient admitted for RUL PNA and colitis, started on IV antibiotics. RUL Pneumonia - RUL consolidation noted on CT chest - Possibly due to aspiration; one week of frequent vomiting - WBC 11 upon admission - ID specialist Dr. Conti consulted - Started on Zosyn 3.375 q8h - Solu-Medrol 40 mg IVP qday - Blood, sputum and urine cultures pending Colitis/Constipation - Abdominal CT show no signs of small or large bowel obstruction on CT scan, though likely distal colitis noted - Reports no bowel movement for 1 week - Nausea, vomiting, and abdominal pain - Miralax BID i - Senna 1 tab PO qhs Adrenal Insufficiency - Not currently on chronic steroids though has been in the past - Start IV Solu-medrol 40 mg IVP qday HypoKalemia - Worsening - 3.2 -> 2.6 - 3 runs of K ordered - Repeat BMP ordered - Zofran 4 mg IVP q6h PRN for nausea HypoNatremia - Resolved - 125 on admission, now 136 - Monitor labs Hypophosphatemia - 2.3 -> 1.6 - Start phos packets BID Anxiety - 1 mg PO q8 PRN, MDD 2 mg Chronic Anemia -Stable - H/H 11.3/33.1 - Possibly due to volume contraction - Monitor CBC for acute loss - If large decrease, consider FOB with hx of GI bleeds FEN - D5 1/2 NS @75 cc/hr - Replete as needed - Clear liquid diet Prophylaxis - DVT: Lovenox 40 mg sq qday Disp: Patient requires further inpatient monitoring FULL Code Visit type - Emergency Visit Emergency Visit: No - New Patient This patient is new to me today: Yes Date on this admission: 08/02/18 - Critical Care Critical Care patient: No
[2018-08-02] MEDS ORDERED: MORPHINE SULFATE 2 MG/ML VIAL ONE (16:26)
[2018-08-02] MEDS ORDERED: POTASSIUM CHLORIDE ORAL LIQUID 20 MEQ/15 ML ONE ×2 (16:29→18:13)
[2018-08-02] MEDS ORDERED: KCL 10 MEQ IVPB 30 MEQ/300 ML INFUS.BAG IVPB ONE (16:30)
[2018-08-02] MEDS ORDERED: AZITHROMYCIN IVPB 500 MG/250 ML BAG IVPB ONE (16:30)
[2018-08-02] MEDS ORDERED: ENOXAPARIN NA (PORCINE) 40 MG/0.4 ML DISP.SYRIN SQ ONE (16:30)
[2018-08-02] MEDS ORDERED: PIPERACILLIN/TAZOB 3.375 GM 3.375 GM/50 ML BAG IVPB ONE (16:30)
[2018-08-02] MEDS: PIPERACILLIN/TAZOB 3.375 GM 3.375 GM in DEXTROSE 5%-WATER - 50 ML IVPB SCH (17:40)
[2018-08-02] MEDS ORDERED: PIPERACILLIN/TAZOB 3.375 GM 3.375 GM in DEXTROSE 5%-WATER - 50 ML IVPB SCH (18:00)
[2018-08-02] MEDS ORDERED: LORazepam 0.5 MG TABLET ONE (19:34)
[2018-08-02] MEDS: LORazepam 1 MG TABLET PO PRN (19:37)
[2018-08-02] MEDS: D5-1/2NS+20 MEQ KCL - 20 MEQ/1,000 ML INFUS.BAG IV SCH (21:05)
[2018-08-02 21:26] LABS: ANION GAP 12 MMOL/L (8-16); BLOOD UREA NITROGEN 14 mg/dL (7-18); CALCIUM 7.4 mg/dL (8.5-10.1); CHLORIDE 106 mmol/L (98-107); CO2 17 mmol/L (21-32); CREATININE 1.2 mg/dL (0.55-1.3); POTASSIUM 3.4 mmol/L (3.5-5.1); SODIUM 134 mmol/L (136-145)
[2018-08-02 21:39] LABS: GLUCOSE,RANDOM 308 mg/dL (74-106)
[2018-08-02] MEDS: SENNOSIDES 8.6MG TABLET (FP) PO SCH (21:59)
[2018-08-02 22:10] VITALS: BMI 26.1
[2018-08-02] MEDS: NAPH,MB-DB/K PH,MBDB POWDER PACKET PO SCH (22:22)
[2018-08-03] MEDS ORDERED: ACETAMINOPHEN 325 MG TABLET (FP) PO ONE (01:09)
[2018-08-03] MEDS ORDERED: PIPERACILLIN/TAZOBACTAM 3.375 GM VIAL IVPB ONE ×2 (01:15→08:27)
[2018-08-03] MEDS ORDERED: DEXTROSE 5%-WATER - 50 ML IVPB ONE ×2 (01:15→08:27)
[2018-08-03] MEDS: LORazepam 1 MG TABLET PO PRN ×2 (04:01→16:14)
[2018-08-03] MEDS ORDERED: MORPHINE SULFATE 2 MG/ML VIAL IM ONE (04:30)
[2018-08-03] MEDS: PIPERACILLIN/TAZOB 3.375 GM 3.375 GM in DEXTROSE 5%-WATER - 50 ML IVPB SCH ×3 (04:36→17:23)
[2018-08-03 07:26] LABS: HEMATOCRIT 28.2 % (32.4-45.2); HEMOGLOBIN 9.7 GM/dL (10.7-15.3); MCH 29.9 pg (25.7-33.7); MCHC 34.4 g/dl (32.0-36.0); MEAN CELL VOLUME 86.8 fl (80-96); MEAN PLT VOLUME 7.6 fl (7.5-11.1); PLATELET COUNT 138 K/MM3 (134-434); RBC 3.25 M/mm3 (3.60-5.2); RDW 14.9 % (11.6-15.6); WHITE BLOOD COUNT 7.2 K/mm3 (4.0-10.0)
[2018-08-03 07:53] LABS: ANION GAP 12 MMOL/L (8-16); BLOOD UREA NITROGEN 14 mg/dL (7-18); CALCIUM 7.6 mg/dL (8.5-10.1); CHLORIDE 107 mmol/L (98-107); CO2 17 mmol/L (21-32); CREATININE 0.8 mg/dL (0.55-1.3); GLUCOSE,RANDOM 115 mg/dL (74-106); MAGNESIUM 1.8 mg/dL (1.8-2.4); PHOSPHOROUS 1.9 mg/dL (2.5-4.9); POTASSIUM 3.4 mmol/L (3.5-5.1); SODIUM 136 mmol/L (136-145)
[2018-08-03] MEDS ORDERED: morphine CARPU-JECT 2 MG/1 ML DISP.SYRIN IVPUSH PRN (08:44)
[2018-08-03] MEDS: POTASSIUM CHLORIDE ORAL LIQUID 20 MEQ/15 ML PO SCH (09:24)
[2018-08-03] MEDS: ENOXAPARIN NA (PORCINE) 40 MG/0.4 ML DISP.SYRIN SQ SCH (09:25)
[2018-08-03] MEDS: POLYETHYLENE GLYCOL 3350 119 GM BTL PO SCH ×3 (09:26→21:27)
[2018-08-03] MEDS: methylPREDNISolone NA SUCC 40 MG/1 ML VIAL IVPUSH SCH (09:27)
[2018-08-03] MEDS: D5-1/2NS+20 MEQ KCL - 20 MEQ/1,000 ML INFUS.BAG IV SCH ×2 (09:27→20:49)
[2018-08-03] MEDS: NAPH,MB-DB/K PH,MBDB POWDER PACKET PO SCH ×2 (09:27→21:27)
[2018-08-03] MEDS ORDERED: FLU VACCINE QUAD 60 MCG/0.5 ML (MDV 18-19) IM ONE (10:00)
--- NOTE | 2018-08-03 11:19 | PN ---
Progress Note, Physician History of Present Illness: Events noted, pt seen and examined. She is currently mildly nauseated with mild generalized abdominal pain but no recent vomiting. +cough but no respiratory distress. No BM as of yet per pt. - Current Medication List Current Medications: Active Medications Enoxaparin Sodium (Lovenox -) 40 mg SQ DAILY [facility] Last Admin: 08/03/18 09:25 Dose: 40 mg Piperacillin Sod/Tazobactam (Sod 3.375 gm/ Dextrose) 50 mls @ 100 mls/hr IVPB Q8H-IV [facility]; Protocol Last Admin: 08/03/18 09:27 Dose: 100 mls/hr Potassium Chloride/Dextrose/Sod Cl (D5-1/2ns+20 Meq Kcl -) 20 meq in 1,000 mls @ 75 mls/hr IV ASDIR [facility] Last Admin: 08/03/18 09:27 Dose: 75 mls/hr Lorazepam (Ativan -) 1 mg PO Q8H PRN PRN Reason: ANXIETY Last Admin: 08/03/18 04:01 Dose: 1 mg Methylprednisolone Sodium Succinate (Solu-Medrol -) 40 mg IVPUSH DAILY [facility] Last Admin: 08/03/18 09:27 Dose: 40 mg Morphine Sulfate (Morphine Sulfate) 0.5 mg IVPUSH Q4H PRN PRN Reason: PAIN LEVEL 6-10 Ondansetron HCl (Zofran Injection) 4 mg IVPUSH Q6H PRN PRN Reason: NAUSEA Polyethylene Glycol (Miralax (For Daily Use) -) 17 gm PO BID [facility] Last Admin: 08/03/18 10:38 Dose: 17 gm Potassium Chloride (Potassium Chloride Oral Liquid) 20 meq PO DAILY [facility] Last Admin: 08/03/18 09:24 Dose: 20 meq Potassium Phos/Sodium Phos (Phos-Nak Packet -) 1 packet PO BID [facility] Last Admin: 08/03/18 09:27 Dose: 1 packet Senna (Senna -) 1 tab PO HS [facility] Last Admin: 08/02/18 21:59 Dose: Not Given - Objective Vital Signs: Vital Signs Temperature 98.1 F 08/03/18 05:00 Pulse Rate 61 08/03/18 05:00 Respiratory Rate 20 08/03/18 05:00 Blood Pressure 120/66 08/03/18 05:00 O2 Sat by Pulse Oximetry (%) 98 08/02/18 07:00 Constitutional: Yes: No Distress, Calm Cardiovascular: Yes: Regular Rate and Rhythm Respiratory: Yes: CTA Bilaterally Gastrointestinal: Yes: Normal Bowel Sounds, Soft, Tenderness (mild generalized with deep palpation) Genitourinary: Yes: WNL Extremities: Yes: WNL Neurological: Yes: Alert, Oriented Labs: CBC, BMP 08/03/18 06:00 08/03/18 06:00 Laboratory Tests 08/01/18 08/01/18 08/01/18 11:20 20:39 20:39 WBC 11.0 H RBC 4.16 Hgb 13.2 Hct 35.5 D MCV 85.2 MCH 31.6 D MCHC 37.1 H RDW 14.9 D Plt Count 201 MPV 7.5 Absolute Neuts (auto) 8.7 H Neutrophils % 79.3 D Neutrophils % (Manual) Band Neutrophils % Lymphocytes % 13.9 D Lymphocytes % (Manual) Monocytes % 6.3 Monocytes % (Manual) Eosinophils % 0.0 D Eosinophils % (Manual) Basophils % 0.5 Basophils % (Manual) Myelocytes % (Man) Promyelocytes % (Man) Blast Cells % (Manual) Nucleated RBC % 0 Metamyelocytes Hypochromia Platelet Estimate Polychromasia Poikilocytosis Anisocytosis Microcytosis Macrocytosis Sodium 125 L Potassium 3.2 L Chloride 91 L Carbon Dioxide 22 Anion Gap 12 BUN 18 Creatinine 1.0 Creat Clearance w eGFR 54.97 Random Glucose 86 Lactic Acid Calcium 7.9 L Phosphorus Magnesium Total Bilirubin 0.9 AST 26 ALT 11 L Alkaline Phosphatase 78 Total Protein 6.4 Albumin 3.2 L Urine Color Urine Appearance Urine pH Ur Specific Sula Urine Protein Urine Glucose (UA) Urine Ketones Urine Blood Urine Nitrite Urine Bilirubin Urine Urobilinogen Ur Leukocyte Esterase Influenza A (Rapid) Negative Influenza B (Rapid) Negative 08/01/18 08/01/18 08/02/18 20:39 21:30 03:10 WBC RBC Hgb Hct MCV MCH MCHC RDW Plt Count MPV Absolute Neuts (auto) Neutrophils % Neutrophils % (Manual) Band Neutrophils % Lymphocytes % Lymphocytes % (Manual) Monocytes % Monocytes % (Manual) Eosinophils % Eosinophils % (Manual) Basophils % Basophils % (Manual) Myelocytes % (Man) Promyelocytes % (Man) Blast Cells % (Manual) Nucleated RBC % Metamyelocytes Hypochromia Platelet Estimate Polychromasia Poikilocytosis Anisocytosis Microcytosis Macrocytosis Sodium Potassium Chloride Carbon Dioxide Anion Gap BUN Creatinine Creat Clearance w eGFR Random Glucose Lactic Acid 1.1 Calcium Phosphorus 2.3 L Magnesium 1.8 Total Bilirubin AST ALT Alkaline Phosphatase Total Protein Albumin Urine Color Ltyellow Urine Appearance Clear Urine pH 6.0 Ur Specific Sula 1.012 Urine Protein Negative Urine Glucose (UA) Negative Urine Ketones Negative Urine Blood Negative Urine Nitrite Negative Urine Bilirubin Negative Urine Urobilinogen Negative Ur Leukocyte Esterase Negative Influenza A (Rapid) Influenza B (Rapid) 08/02/18 08/02/18 08/02/18 09:15 09:15 20:00 WBC 6.2 RBC 3.78 Hgb 11.3 Hct 33.1 MCV 87.5 MCH 29.9 MCHC 34.1 RDW 15.0 Plt Count 150 D MPV 7.3 L Absolute Neuts (auto) 5.7 Neutrophils % 92.3 H Neutrophils % (Manual) 95.0 H Band Neutrophils % 0.0 Lymphocytes % 4.4 L D Lymphocytes % (Manual) 2.0 L Monocytes % 3.0 L Monocytes % (Manual) 2 L Eosinophils % 0.1 D Eosinophils % (Manual) 0.0 Basophils % 0.2 Basophils % (Manual) 1.0 Myelocytes % (Man) 0 Promyelocytes % (Man) 0 Blast Cells % (Manual) 0 Nucleated RBC % 0 Metamyelocytes 0 Hypochromia 0 Platelet Estimate Decreased Polychromasia 0 Poikilocytosis 0 Anisocytosis 0 Microcytosis 1+ Macrocytosis 0 Sodium 136 134 L Potassium 2.6 L* 3.4 L Chloride 105 106 Carbon Dioxide 18 L 17 L Anion Gap 13 12 BUN 16 14 Creatinine 0.8 1.2 Creat Clearance w eGFR > 60 44.54 Random Glucose 56 L 308 H* Lactic Acid Calcium 6.7 L* 7.4 L Phosphorus 1.6 L Magnesium 1.9 Total Bilirubin AST ALT Alkaline Phosphatase Total Protein Albumin Urine Color Urine Appearance Urine pH Ur Specific Sula Urine Protein Urine Glucose (UA) Urine Ketones Urine Blood Urine Nitrite Urine Bilirubin Urine Urobilinogen Ur Leukocyte Esterase Influenza A (Rapid) Influenza B (Rapid) 08/03/18 08/03/18 06:00 06:00 WBC 7.2 RBC 3.25 L Hgb 9.7 L Hct 28.2 L MCV 86.8 MCH 29.9 MCHC 34.4 RDW 14.9 Plt Count 138 MPV 7.6 Absolute Neuts (auto) Neutrophils % Neutrophils % (Manual) Band Neutrophils % Lymphocytes % Lymphocytes % (Manual) Monocytes % Monocytes % (Manual) Eosinophils % Eosinophils % (Manual) Basophils % Basophils % (Manual) Myelocytes % (Man) Promyelocytes % (Man) Blast Cells % (Manual) Nucleated RBC % Metamyelocytes Hypochromia Platelet Estimate Polychromasia Poikilocytosis Anisocytosis Microcytosis Macrocytosis Sodium 136 Potassium 3.4 L Chloride 107 Carbon Dioxide 17 L Anion Gap 12 BUN 14 Creatinine 0.8 Creat Clearance w eGFR > 60 Random Glucose 115 H Lactic Acid Calcium 7.6 L Phosphorus 1.9 L Magnesium 1.8 Total Bilirubin AST ALT Alkaline Phosphatase Total Protein Albumin Urine Color Urine Appearance Urine pH Ur Specific Sula Urine Protein Urine Glucose (UA) Urine Ketones Urine Blood Urine Nitrite Urine Bilirubin Urine Urobilinogen Ur Leukocyte Esterase Influenza A (Rapid) Influenza B (Rapid) - ....Imaging Chest X-ray: Report Reviewed Cat Scan: Report Reviewed Problem List - Problems (1) Pneumonia Code(s): J18.9 - PNEUMONIA, UNSPECIFIED ORGANISM (2) COPD (chronic obstructive pulmonary disease) Code(s): J44.9 - CHRONIC OBSTRUCTIVE PULMONARY DISEASE, UNSPECIFIED Qualifiers: COPD type: unspecified COPD Qualified Code(s): J44.9 - Chronic obstructive pulmonary disease, unspecified (3) GIB (gastrointestinal bleeding) Code(s): K92.2 - GASTROINTESTINAL HEMORRHAGE, UNSPECIFIED Qualifiers: GI bleed type/associated pathology: unspecified gastrointestinal hemorrhage type Qualified Code(s): K92.2 - Gastrointestinal hemorrhage, unspecified (4) Hypokalemia Code(s): E87.6 - HYPOKALEMIA (5) Hyponatremia Code(s): E87.1 - HYPO-OSMOLALITY AND HYPONATREMIA Assessment/Plan 68 y.o. female with PMH of GI bleed/anemia, duodenal perforation s/p repair, adrenal insufficiency, OA s/p TKR presenting with c/o cough/fever/weakness as well as abdominal pain and persistent vomiting RUL pneumonia Constipation/colitis Hypokalemia Vomiting -- no recent vomiting, afebrile -- cont. antibiotics -- monitor electrolytes -- pt without acute respiratory distress
--- NOTE | 2018-08-03 12:22 | PN ---
Physical Exam: SUBJECTIVE: Patient seen and examined. She reports she is feeling better than yesterday, but still has nausea and leg pain and some chest congestion. She has had no episodes of vomiting. She feels as though she can start to eat regular foods. No bowel movement since she has been admitted. OBJECTIVE: Vital Signs Period Temp Pulse Resp BP Sys/Xiao Pulse Ox Last 24 Hr 97.8 F-98.2 F 61-78 20-20 105-120/66-76 GENERAL: Appears more alert than yesterday, fully oriented, HEAD: Normal with no signs of trauma. EYES: PERRL, extraocular movements intact, sclera anicteric, conjunctiva clear. No ptosis. ENT: Ears normal, nares patent, oropharynx clear without exudates, moist mucous membranes. NECK: Trachea midline, full range of motion, supple. LUNGS: Ronchorous breath sounds in ruq on expiration HEART: Regular rate and rhythm, S1, S2 without murmur, rub or gallop. ABDOMEN: Soft, diffusely TTP, nondistended, normoactive bowel sounds, no guarding, no rebound, no hepatosplenomegaly, no masses. EXTREMITIES: 2+ pulses, warm, well-perfused, no edema NEUROLOGICAL: No facial droop, tongue midline, normal speech, gait not observed. PSYCH: Normal mood, normal affect. SKIN: Warm, dry, normal turgor, no rashes or lesions noted Laboratory Results - last 24 hr 08/02/18 08/02/18 08/03/18 09:15 20:00 06:00 WBC 7.2 RBC 3.25 L Hgb 9.7 L Hct 28.2 L MCV 86.8 MCH 29.9 MCHC 34.4 RDW 14.9 Plt Count 138 MPV 7.6 Neutrophils % (Manual) 95.0 H Band Neutrophils % 0.0 Lymphocytes % (Manual) 2.0 L Monocytes % (Manual) 2 L Eosinophils % (Manual) 0.0 Basophils % (Manual) 1.0 Myelocytes % (Man) 0 Promyelocytes % (Man) 0 Blast Cells % (Manual) 0 Nucleated RBC % 0 Metamyelocytes 0 Hypochromia 0 Platelet Estimate Decreased Polychromasia 0 Poikilocytosis 0 Anisocytosis 0 Microcytosis 1+ Macrocytosis 0 Sodium 134 L Potassium 3.4 L Chloride 106 Carbon Dioxide 17 L Anion Gap 12 BUN 14 Creatinine 1.2 Creat Clearance w eGFR 44.54 Random Glucose 308 H* Calcium 7.4 L Phosphorus Magnesium 08/03/18 06:00 WBC RBC Hgb Hct MCV MCH MCHC RDW Plt Count MPV Neutrophils % (Manual) Band Neutrophils % Lymphocytes % (Manual) Monocytes % (Manual) Eosinophils % (Manual) Basophils % (Manual) Myelocytes % (Man) Promyelocytes % (Man) Blast Cells % (Manual) Nucleated RBC % Metamyelocytes Hypochromia Platelet Estimate Polychromasia Poikilocytosis Anisocytosis Microcytosis Macrocytosis Sodium 136 Potassium 3.4 L Chloride 107 Carbon Dioxide 17 L Anion Gap 12 BUN 14 Creatinine 0.8 Creat Clearance w eGFR > 60 Random Glucose 115 H Calcium 7.6 L Phosphorus 1.9 L Magnesium 1.8 Active Medications Generic Name Dose Route Start Last Admin Trade Name Freq PRN Reason Stop Dose Admin Enoxaparin Sodium 40 mg 08/02/18 10:00 08/03/18 09:25 Lovenox - SQ 40 mg DAILY [facility] Administration Piperacillin Sod/Tazobactam 50 mls @ 100 mls/hr 08/02/18 18:00 08/03/18 09:27 Sod 3.375 gm/ Dextrose IVPB 100 mls/hr Q8H-IV [facility] Administration Protocol Potassium Chloride/Dextrose/Sod Cl 20 meq in 1,000 mls @ 75 mls/hr 08/02/18 18 :00 08/03/18 09:27 D5-1/2ns+20 Meq Kcl - IV 75 mls/hr ASDIR [facility] Administration Lorazepam 1 mg 08/02/18 16:55 08/03/18 04:01 Ativan - PO 1 mg Q8H PRN Administration ANXIETY Methylprednisolone Sodium Succinate 40 mg 08/03/18 10:00 08/03/18 09:27 Solu-Medrol - IVPUSH 40 mg DAILY [facility] Administration Morphine Sulfate 0.5 mg 08/03/18 09:16 Morphine Sulfate IVPUSH Q4H PRN PAIN LEVEL 6-10 Ondansetron HCl 4 mg 08/02/18 16:46 Zofran Injection IVPUSH Q6H PRN NAUSEA Polyethylene Glycol 17 gm 08/02/18 10:00 08/03/18 10:38 Miralax (For Daily Use) - PO 17 gm BID [facility] Administration Potassium Chloride 20 meq 08/03/18 10:00 08/03/18 09:24 Potassium Chloride Oral Liquid PO 20 meq DAILY [facility] Administration Potassium Phos/Sodium Phos 1 packet 08/02/18 22:00 08/03/18 09:27 Phos-Nak Packet - PO 1 packet BID [facility] Administration Senna 1 tab 08/02/18 22:00 08/02/18 21:59 Senna - PO Not Given HS [facility] ASSESSMENT/PLAN: 68 year old female with PMH significant for anemia, GI bleed, hiatal hernia s/ p repair, duodenal perf s/p repair, adrenal insufficiency, hep C s/p treatment, anxiety, ROSANA, MVP, presented to the ED with 1 week of frequent vomiting as well as 2 weeks of cough and sore throat. CT showed RUQ consolidation, CT of abdomen negative for SBO but showed some distal colitis. Patient admitted for RUL PNA and colitis, started on IV antibiotics. RUL Pneumonia - RUL consolidation noted on CT chest - Possibly due to aspiration; one week of frequent vomiting - WBC 11 upon admission - ID specialist Dr. Conti consulted - Continue on Zosyn 3.375 q8h - Solu-Medrol 40 mg IVP qday - Urine and preliminary blood cultures negative Colitis/Constipation - Abdominal CT show no signs of small or large bowel obstruction on CT scan, though likely distal colitis noted - Reports no bowel movement for 1 week - Nausea, vomiting, and abdominal pain - Miralax BID i - Senna 1 tab PO qhs Adrenal Insufficiency - Not currently on chronic steroids though has been in the past - Start IV Solu-medrol 40 mg IVP qday HypoKalemia - Improving after 3 runs of K, 40 meq PO KCL, and IV fluid with KCL - 3.2 -> 2.6 -> 3.4 - Continue IV fluid with postassium - KCl 20 meq OP qday - Zofran 4 mg IVP q6h PRN for nausea - Monitor BMP HypoNatremia - Resolved - 125 on admission, now 136 - Monitor labs Hypophosphatemia - 2.3 -> 1.6 -> 1.9 - Continue phos packets BID Anxiety - 1 mg PO q8 PRN, MDD 2 mg Chronic Anemia -Worsening - H/H 11.3/33.1 -> 9.7/28.2 - Possibly due to volume repletion - Will order FOB - Monitor CBC for acute loss - If large decrease, consider FOB with hx of GI bleeds FEN - D5 1/2 NS @75 cc/hr - Replete as needed - Will upgrade to regular diet Prophylaxis - DVT: Lovenox 40 mg sq qday Disp: Patient requires further inpatient monitoring FULL Code Visit type - Emergency Visit Emergency Visit: No - New Patient This patient is new to me today: No - Critical Care Critical Care patient: No
[2018-08-03] MEDS: ONDANSETRON 4 MG/2 ML VIAL IVPUSH PRN (15:13)
[2018-08-03] MEDS ORDERED: ONDANSETRON 4 MG TABLET PO ONE (19:15)
[2018-08-03] MEDS: MORPHINE SULFATE 2 MG/ML VIAL IVPUSH PRN (20:49)
--- NOTE | 2018-08-03 21:22 | EKG ---
Test Reason : Blood Pressure : / mmHG Vent. Rate : 068 BPM Atrial Rate : 068 BPM P-R Int : 144 ms QRS Dur : 076 ms QT Int : 384 ms P-R-T Axes : 049 -16 -39 degrees QTc Int : 408 ms NORMAL SINUS RHYTHM NONSPECIFIC ST AND T WAVE ABNORMALITY ABNORMAL ECG WHEN COMPARED WITH ECG OF 26-SEP-2017 16:31, CRITERIA FOR ANTERIOR INFARCT ARE NO LONGER PRESENT ST NOW DEPRESSED IN INFERIOR LEADS NONSPECIFIC T WAVE ABNORMALITY, WORSE IN LATERAL LEADS Confirmed by REMIGIO WALLS, KELLY ([id number]) on 08/03/2018 9:22:17 PM Referred By: Confirmed By:KELLY FLOOD MD
[2018-08-03] MEDS: SENNOSIDES 8.6MG TABLET (FP) PO SCH (21:27)
[2018-08-04] MEDS ORDERED: DEXTROSE 5%-WATER - 50 ML IVPB ONE ×3 (01:05→16:03)
[2018-08-04] MEDS ORDERED: PIPERACILLIN/TAZOBACTAM 3.375 GM VIAL IVPB ONE ×3 (01:05→16:03)
[2018-08-04] MEDS: PIPERACILLIN/TAZOB 3.375 GM 3.375 GM in DEXTROSE 5%-WATER - 50 ML IVPB SCH ×3 (01:55→17:11)
[2018-08-04] MEDS: LORazepam 1 MG TABLET PO PRN ×3 (02:00→22:18)
[2018-08-04] MEDS ORDERED: BENZOCAINE/MENTH/CETYLPYRD CL 1 EACH LOZENGE MM PRN (02:10)
[2018-08-04 07:22] LABS: HEMATOCRIT 30.8 % (32.4-45.2); HEMOGLOBIN 10.4 GM/dL (10.7-15.3); MCH 29.9 pg (25.7-33.7); MCHC 33.6 g/dl (32.0-36.0); MEAN CELL VOLUME 88.8 fl (80-96); MEAN PLT VOLUME 7.3 fl (7.5-11.1); PLATELET COUNT 174 K/MM3 (134-434); RBC 3.47 M/mm3 (3.60-5.2); RDW 14.8 % (11.6-15.6); WHITE BLOOD COUNT 6.5 K/mm3 (4.0-10.0)
[2018-08-04 08:05] LABS: ANION GAP 11 MMOL/L (8-16); BLOOD UREA NITROGEN 12 mg/dL (7-18); CHLORIDE 110 mmol/L (98-107); CO2 18 mmol/L (21-32); CREATININE 0.9 mg/dL (0.55-1.3); GLUCOSE,RANDOM 113 mg/dL (74-106); MAGNESIUM 1.8 mg/dL (1.8-2.4); SODIUM 139 mmol/L (136-145)
[2018-08-04] MEDS: ONDANSETRON 4 MG/2 ML VIAL IVPUSH PRN ×2 (08:58→18:03)
[2018-08-04] MEDS: ENOXAPARIN NA (PORCINE) 40 MG/0.4 ML DISP.SYRIN SQ SCH (09:01)
[2018-08-04] MEDS: NAPH,MB-DB/K PH,MBDB POWDER PACKET PO SCH ×2 (09:02→22:18)
[2018-08-04] MEDS: POTASSIUM CHLORIDE ORAL LIQUID 20 MEQ/15 ML PO SCH (09:02)
[2018-08-04] MEDS: methylPREDNISolone NA SUCC 40 MG/1 ML VIAL IVPUSH SCH (09:02)
[2018-08-04] MEDS: MORPHINE SULFATE 2 MG/ML VIAL IVPUSH PRN ×2 (09:44→19:35)
[2018-08-04] MEDS: POLYETHYLENE GLYCOL 3350 119 GM BTL PO SCH ×2 (11:01→22:18)
--- NOTE | 2018-08-04 11:19 | PN ---
Progress Note, Physician History of Present Illness: Pt is alert, without c/o SOB or productive cough. Has mild abd pain with nausea but no vomiting. Had 2 BMs yesterday, none today. - Current Medication List Current Medications: Active Medications Benzocaine/Menthol (Cepacol Lozenge -) 1 each MM PRN PRN PRN Reason: SORE THROAT Last Admin: 08/04/18 02:34 Dose: 1 each Enoxaparin Sodium (Lovenox -) 40 mg SQ DAILY [facility] Last Admin: 08/04/18 09:01 Dose: 40 mg Piperacillin Sod/Tazobactam (Sod 3.375 gm/ Dextrose) 50 mls @ 100 mls/hr IVPB Q8H-IV [facility]; Protocol Last Admin: 08/04/18 09:01 Dose: 100 mls/hr Potassium Chloride/Dextrose/Sod Cl (D5-1/2ns+20 Meq Kcl -) 20 meq in 1,000 mls @ 75 mls/hr IV ASDIR [facility] Last Admin: 08/03/18 20:49 Dose: 75 mls/hr Lorazepam (Ativan -) 1 mg PO Q8H PRN PRN Reason: ANXIETY Last Admin: 08/04/18 02:00 Dose: 1 mg Methylprednisolone Sodium Succinate (Solu-Medrol -) 40 mg IVPUSH DAILY [facility] Last Admin: 08/04/18 09:02 Dose: 40 mg Morphine Sulfate (Morphine Sulfate) 0.5 mg IVPUSH Q4H PRN PRN Reason: PAIN LEVEL 6-10 Last Admin: 08/04/18 09:44 Dose: 0.5 mg Ondansetron HCl (Zofran Injection) 4 mg IVPUSH Q6H PRN PRN Reason: NAUSEA Last Admin: 08/04/18 08:58 Dose: 4 mg Polyethylene Glycol (Miralax (For Daily Use) -) 17 gm PO BID [facility] Last Admin: 08/04/18 11:01 Dose: Not Given Potassium Chloride (Potassium Chloride Oral Liquid) 20 meq PO DAILY [facility] Last Admin: 08/04/18 09:02 Dose: 20 meq Potassium Phos/Sodium Phos (Phos-Nak Packet -) 1 packet PO BID [facility] Last Admin: 08/04/18 09:02 Dose: 1 packet Senna (Senna -) 1 tab PO HS [facility] Last Admin: 08/03/18 21:27 Dose: Not Given - Objective Vital Signs: Vital Signs Temperature 98 F 08/04/18 10:00 Pulse Rate 69 08/04/18 10:00 Respiratory Rate 20 08/04/18 10:00 Blood Pressure 129/74 08/04/18 10:00 O2 Sat by Pulse Oximetry (%) 97 08/04/18 09:00 Constitutional: Yes: No Distress, Calm Neck: Yes: Supple Cardiovascular: Yes: Regular Rate and Rhythm Respiratory: Yes: Wheezes (mild exp) Gastrointestinal: Yes: Normal Bowel Sounds, Soft, Tenderness (lower abd with deep palpation) Genitourinary: Yes: WNL Neurological: Yes: Alert Labs: CBC, BMP 08/04/18 06:00 08/04/18 06:00 Microbiology 08/01/18 20:39 Blood - Peripheral Venous Blood Culture - Preliminary NO GROWTH OBTAINED AFTER 48 HOURS, INCUBATION TO CONTINUE FOR 3 DAYS. 08/01/18 20:39 Blood - Peripheral Venous Blood Culture - Preliminary NO GROWTH OBTAINED AFTER 48 HOURS, INCUBATION TO CONTINUE FOR 3 DAYS. 08/02/18 03:10 Urine - Urine Clean Catch Urine Culture - Final NO GROWTH OBTAINED Problem List - Problems (1) Pneumonia Code(s): J18.9 - PNEUMONIA, UNSPECIFIED ORGANISM (2) COPD (chronic obstructive pulmonary disease) Code(s): J44.9 - CHRONIC OBSTRUCTIVE PULMONARY DISEASE, UNSPECIFIED Qualifiers: Qualified Code(s): J44.9 - Chronic obstructive pulmonary disease, unspecified (3) GIB (gastrointestinal bleeding) Code(s): K92.2 - GASTROINTESTINAL HEMORRHAGE, UNSPECIFIED Qualifiers: Qualified Code(s): K92.2 - Gastrointestinal hemorrhage, unspecified (4) Hypokalemia Code(s): E87.6 - HYPOKALEMIA (5) Hyponatremia Code(s): E87.1 - HYPO-OSMOLALITY AND HYPONATREMIA Assessment/Plan 68 y.o. female with PMH of GI bleed/anemia, duodenal perforation s/p repair, adrenal insufficiency, OA s/p TKR presenting with c/o cough/fever/weakness as well as abdominal pain and persistent vomiting RUL pneumonia Constipation/colitis Hypokalemia Vomiting -- afebrile, no vomiting noted recently -- still with abdominal discomfort -- continue antibiotics, currently without respiratory distress
--- NOTE | 2018-08-04 12:12 | PN ---
Physical Exam: SUBJECTIVE: Patient seen and examined, she reports she feels better than yesterday, but still with some nausea after she eats. She has been eating well. She had 2 BMs yesterday OBJECTIVE: Vital Signs Period Temp Pulse Resp BP Sys/Xiao Pulse Ox Last 24 Hr 97.6 F-98.3 F 69-92 18-20 110-131/51-75 97-97 GENERAL: Appears more alert than yesterday, fully oriented, HEAD: Normal with no signs of trauma. EYES: PERRL, extraocular movements intact, sclera anicteric, conjunctiva clear. No ptosis. ENT: Ears normal, nares patent, oropharynx clear without exudates, moist mucous membranes. NECK: Trachea midline, full range of motion, supple. LUNGS: Ronchorous breath sounds in ruq on expiration, expiratory wheeze on LUQ HEART: Regular rate and rhythm, S1, S2 without murmur, rub or gallop. ABDOMEN: Soft, diffusely TTP, nondistended, normoactive bowel sounds, no guarding, no rebound, no hepatosplenomegaly, no masses. EXTREMITIES: 2+ pulses, warm, well-perfused, no edema NEUROLOGICAL: No facial droop, tongue midline, normal speech, gait not observed. PSYCH: Normal mood, normal affect. SKIN: Warm, dry, normal turgor, no rashes or lesions noted Laboratory Results - last 24 hr 08/04/18 08/04/18 06:00 06:00 WBC 6.5 RBC 3.47 L Hgb 10.4 L Hct 30.8 L MCV 88.8 MCH 29.9 MCHC 33.6 RDW 14.8 Plt Count 174 D MPV 7.3 L Sodium 139 Potassium 4.0 Chloride 110 H Carbon Dioxide 18 L Anion Gap 11 BUN 12 Creatinine 0.9 Creat Clearance w eGFR > 60 Random Glucose 113 H Calcium 8.0 L Phosphorus 2.0 L Magnesium 1.8 Active Medications Generic Name Dose Route Start Last Admin Trade Name Freq PRN Reason Stop Dose Admin Benzocaine/Menthol 1 each 08/04/18 02:10 08/04/18 02:34 Cepacol Lozenge - MM 1 each PRN PRN Administration SORE THROAT Enoxaparin Sodium 40 mg 08/02/18 10:00 08/04/18 09:01 Lovenox - SQ 40 mg DAILY [facility] Administration Piperacillin Sod/Tazobactam 50 mls @ 100 mls/hr 08/02/18 18:00 08/04/18 09:01 Sod 3.375 gm/ Dextrose IVPB 100 mls/hr Q8H-IV [facility] Administration Protocol Potassium Chloride/Dextrose/Sod Cl 20 meq in 1,000 mls @ 75 mls/hr 08/02/18 18 :00 08/03/18 20:49 D5-1/2ns+20 Meq Kcl - IV 75 mls/hr ASDIR [facility] Administration Lorazepam 1 mg 08/02/18 16:55 08/04/18 02:00 Ativan - PO 1 mg Q8H PRN Administration ANXIETY Methylprednisolone Sodium Succinate 40 mg 08/03/18 10:00 08/04/18 09:02 Solu-Medrol - IVPUSH 40 mg DAILY [facility] Administration Morphine Sulfate 0.5 mg 08/03/18 09:16 08/04/18 09:44 Morphine Sulfate IVPUSH 0.5 mg Q4H PRN Administration PAIN LEVEL 6-10 Ondansetron HCl 4 mg 08/02/18 16:46 08/04/18 08:58 Zofran Injection IVPUSH 4 mg Q6H PRN Administration NAUSEA Polyethylene Glycol 17 gm 08/02/18 10:00 08/04/18 11:01 Miralax (For Daily Use) - PO Not Given BID [facility] Potassium Chloride 20 meq 08/03/18 10:00 08/04/18 09:02 Potassium Chloride Oral Liquid PO 20 meq DAILY [facility] Administration Potassium Phos/Sodium Phos 1 packet 08/02/18 22:00 08/04/18 09:02 Phos-Nak Packet - PO 1 packet BID [facility] Administration Senna 1 tab 08/02/18 22:00 08/03/18 21:27 Senna - PO Not Given HS [facility] ASSESSMENT/PLAN: 68 year old female with PMH significant for anemia, GI bleed, hiatal hernia s/ p repair, duodenal perf s/p repair, adrenal insufficiency, hep C s/p treatment, anxiety, ROSANA, MVP, presented to the ED with 1 week of frequent vomiting as well as 2 weeks of cough and sore throat. CT showed RUQ consolidation, CT of abdomen negative for SBO but showed some distal colitis. Patient admitted for RUL PNA and colitis, started on IV antibiotics. RUL Pneumonia - RUL consolidation noted on CT chest - Possibly due to aspiration; one week of frequent vomiting - WBC 11 upon admission - ID specialist Dr. Conti - Continue on Zosyn 3.375 q8h - Solu-Medrol 40 mg IVP qday - Urine and preliminary blood cultures negative Colitis/Constipation - Abdominal CT show no signs of small or large bowel obstruction on CT scan, though likely distal colitis noted - 2 BMs yesetrday - Miralax BID i - Senna 1 tab PO qhs Adrenal Insufficiency - Not currently on chronic steroids though has been in the past - Start IV Solu-medrol 40 mg IVP qday HypoKalemia - Resolved; 4.0 today - Continue IV fluid with potassium - KCl 20 meq OP qday - Zofran 4 mg IVP q6h PRN for nausea - Monitor BMP HypoNatremia - Resolved - 125 on admission, now 139 - Monitor labs Hypophosphatemia - 2.3 -> 1.6 -> 1.9 -> 2.0 - Continue phos packets BID Anxiety - 1 mg PO q8 PRN, MDD 2 mg Chronic Anemia -Stable - H/H 11.3/33.1 -> 9.7/28.2 -> 10.4/30.8 - Possibly due to volume repletion - Monitor CBC for acute loss - If large decrease, consider FOB with hx of GI bleeds FEN - D5 1/2 NS @75 cc/hr - Replete as needed - Will upgrade to regular diet Prophylaxis - DVT: Lovenox 40 mg sq qday Disp: Patient requires further inpatient monitoring FULL Code Visit type - Emergency Visit Emergency Visit: No - New Patient This patient is new to me today: No - Critical Care Critical Care patient: No
[2018-08-04] MEDS: D5-1/2NS+20 MEQ KCL - 20 MEQ/1,000 ML INFUS.BAG IV SCH ×2 (13:48→18:02)
[2018-08-04] MEDS: SENNOSIDES 8.6MG TABLET (FP) PO SCH (22:18)
[2018-08-05] MEDS ORDERED: PIPERACILLIN/TAZOBACTAM 3.375 GM VIAL IVPB ONE ×2 (00:57→10:48)
[2018-08-05] MEDS ORDERED: DEXTROSE 5%-WATER - 50 ML IVPB ONE ×2 (00:58→10:48)
[2018-08-05] MEDS: PIPERACILLIN/TAZOB 3.375 GM 3.375 GM in DEXTROSE 5%-WATER - 50 ML IVPB SCH ×3 (01:37→18:04)
[2018-08-05] MEDS ORDERED: D5-1/2NS+20 MEQ KCL - 20 MEQ/1,000 ML INFUS.BAG IV SCH (06:08)
[2018-08-05 07:15] LABS: ANION GAP 9 MMOL/L (8-16); BLOOD UREA NITROGEN 18 mg/dL (7-18); CHLORIDE 107 mmol/L (98-107); CO2 22 mmol/L (21-32); CREATININE 0.9 mg/dL (0.55-1.3); GLUCOSE,RANDOM 100 mg/dL (74-106); MAGNESIUM 1.8 mg/dL (1.8-2.4); POTASSIUM 4.5 mmol/L (3.5-5.1); SODIUM 138 mmol/L (136-145)
[2018-08-05 07:35] LABS: HEMATOCRIT 32.3 % (32.4-45.2); HEMOGLOBIN 10.9 GM/dL (10.7-15.3); MCH 29.9 pg (25.7-33.7); MCHC 33.6 g/dl (32.0-36.0); MEAN PLT VOLUME 7.7 fl (7.5-11.1); PLATELET COUNT 183 K/MM3 (134-434); RBC 3.63 M/mm3 (3.60-5.2); RDW 14.7 % (11.6-15.6); WHITE BLOOD COUNT 5.9 K/mm3 (4.0-10.0)
--- NOTE | 2018-08-05 09:08 | PN ---
Physical Exam: SUBJECTIVE: Patient seen and examined, she reports she is feeling well today but still with some nausea, no vomiting. She had a large BM this AM. Still coughing OBJECTIVE: Vital Signs Period Temp Pulse Resp BP Sys/Xiao Pulse Ox Last 24 Hr 97.9 F-98.5 F 58-73 20-20 129-154/74-86 96 GENERAL: Awake, alert, and fully oriented, sitting up in bed eating breakfast HEAD: Normal with no signs of trauma. EYES: PERRL, extraocular movements intact, sclera anicteric, conjunctiva clear. No ptosis. ENT: Ears normal, nares patent, oropharynx clear without exudates, moist mucous membranes. NECK: Trachea midline, full range of motion, supple. LUNGS: Ronchorous breath sounds in ruq on expiration, expiratory wheeze on LUQ, cough HEART: Regular rate and rhythm, S1, S2 without murmur, rub or gallop. ABDOMEN: Soft, diffusely TTP, nondistended, normoactive bowel sounds, no guarding, no rebound, no hepatosplenomegaly, no masses. EXTREMITIES: 2+ pulses, warm, well-perfused, no edema NEUROLOGICAL: No facial droop, tongue midline, normal speech, gait not observed. PSYCH: Normal mood, normal affect. SKIN: Warm, dry, normal turgor, no rashes or lesions noted Laboratory Results - last 24 hr 08/04/18 08/05/18 08/05/18 16:00 06:00 06:00 WBC 5.9 RBC 3.63 Hgb 10.9 Hct 32.3 L MCV 89.0 MCH 29.9 MCHC 33.6 RDW 14.7 Plt Count 183 MPV 7.7 Sodium 138 Potassium 4.5 Chloride 107 Carbon Dioxide 22 Anion Gap 9 BUN 18 Creatinine 0.9 Creat Clearance w eGFR > 60 Random Glucose 100 Calcium 8.0 L Magnesium 1.8 Stool Occult Blood Negative Active Medications Generic Name Dose Route Start Last Admin Trade Name Freq PRN Reason Stop Dose Admin Benzocaine/Menthol 1 each 08/04/18 02:10 08/04/18 02:34 Cepacol Lozenge - MM 1 each PRN PRN Administration SORE THROAT Enoxaparin Sodium 40 mg 08/02/18 10:00 08/04/18 09:01 Lovenox - SQ 40 mg DAILY ALFREDA Administration Piperacillin Sod/Tazobactam 50 mls @ 100 mls/hr 08/02/18 18:00 08/05/18 01:37 Sod 3.375 gm/ Dextrose IVPB 100 mls/hr Q8H-IV ALFREDA Administration Protocol Potassium Chloride/Dextrose/Sod Cl 20 meq in 1,000 mls @ 42 mls/hr 08/05/18 06 :08 08/05/18 06:28 D5-1/2ns+20 Meq Kcl - IV 42 mls/hr ASDIR ALFREDA Administration Lorazepam 1 mg 08/02/18 16:55 08/04/18 22:18 Ativan - PO 1 mg Q8H PRN Administration ANXIETY Methylprednisolone Sodium Succinate 40 mg 08/03/18 10:00 08/04/18 09:02 Solu-Medrol - IVPUSH 40 mg DAILY ALFREDA Administration Morphine Sulfate 0.5 mg 08/03/18 09:16 08/04/18 19:35 Morphine Sulfate IVPUSH 0.5 mg Q4H PRN Administration PAIN LEVEL 6-10 Ondansetron HCl 4 mg 08/02/18 16:46 08/04/18 18:03 Zofran Injection IVPUSH 4 mg Q6H PRN Administration NAUSEA Polyethylene Glycol 17 gm 08/02/18 10:00 08/04/18 22:18 Miralax (For Daily Use) - PO 17 gm BID ALFREDA Administration Potassium Chloride 20 meq 08/03/18 10:00 08/04/18 09:02 Potassium Chloride Oral Liquid PO 20 meq DAILY ALFREDA Administration Potassium Phos/Sodium Phos 1 packet 08/02/18 22:00 08/04/18 22:18 Phos-Nak Packet - PO 1 packet BID ALFREDA Administration Senna 1 tab 08/02/18 22:00 08/04/18 22:18 Senna - PO 1 tab HS ALFREDA Administration ASSESSMENT/PLAN: 68 year old female with PMH significant for anemia, GI bleed, hiatal hernia s/p repair, duodenal perf s/p repair, adrenal insufficiency, hep C s/p treatment, anxiety, ROSANA, MVP, presented to the ED with 1 week of frequent vomiting as well as 2 weeks of cough and sore throat. CT showed RUQ consolidation, CT of abdomen negative for SBO but showed some distal colitis. Patient admitted for RUL PNA and colitis, started on IV antibiotics. RUL Pneumonia - RUL consolidation noted on CT chest - Possibly due to aspiration; one week of frequent vomiting - WBC 11 -> 6.5 today - ID specialist Dr. Conti - Continue on Zosyn 3.375 q8h - Solu-Medrol 40 mg IVP qday - Urine and preliminary blood cultures negative Colitis/Constipation - Abdominal CT show no signs of small or large bowel obstruction on CT scan, though likely distal colitis noted - Large BM today - Miralax BID - Senna 1 tab PO qhs Adrenal Insufficiency - Not currently on chronic steroids though has been in the past - Start IV Solu-medrol 40 mg IVP qday HypoKalemia - Resolved; 4.5 today - D/c IV fluid with potassium - KCl 20 meq OP qday - Zofran 4 mg IVP q6h PRN for nausea - Monitor BMP HypoNatremia - Resolved - 125 on admission, now 138 - Monitor labs Hypophosphatemia - 2.3 -> 1.6 -> 1.9 -> 2.0 - Continue phos packets BID Anxiety - 1 mg PO q8 PRN, MDD 2 mg Chronic Anemia -Stable - H/H 11.3/33.1 -> 9.7/28.2 -> 10.4/30.8 -> 10.9/32.3 - Monitor CBC for acute loss - If large decrease, consider FOB with hx of GI bleeds FEN - PO intake adequate - Replete as needed - Regular diet Prophylaxis - DVT: Lovenox 40 mg sq qday Disp: Patient requires further inpatient monitoring FULL Code Visit type - Emergency Visit Emergency Visit: No - New Patient This patient is new to me today: No - Critical Care Critical Care patient: No
[2018-08-05] MEDS: MORPHINE SULFATE 2 MG/ML VIAL IVPUSH PRN ×3 (10:56→20:44)
[2018-08-05] MEDS: ENOXAPARIN NA (PORCINE) 40 MG/0.4 ML DISP.SYRIN SQ SCH (11:00)
[2018-08-05] MEDS: ONDANSETRON 4 MG/2 ML VIAL IVPUSH PRN (11:00)
[2018-08-05] MEDS: NAPH,MB-DB/K PH,MBDB POWDER PACKET PO SCH ×2 (11:00→22:13)
[2018-08-05] MEDS: methylPREDNISolone NA SUCC 40 MG/1 ML VIAL IVPUSH SCH (11:00)
[2018-08-05] MEDS: POTASSIUM CHLORIDE ORAL LIQUID 20 MEQ/15 ML PO SCH (11:00)
[2018-08-05] MEDS: POLYETHYLENE GLYCOL 3350 119 GM BTL PO SCH ×2 (11:01→21:58)
[2018-08-05] MEDS: LORazepam 1 MG TABLET PO PRN ×2 (11:53→20:38)
--- NOTE | 2018-08-05 14:02 | PN ---
Progress Note, Physician History of Present Illness: patient stable no new issues - Current Medication List Current Medications: Active Medications Benzocaine/Menthol (Cepacol Lozenge -) 1 each MM PRN PRN PRN Reason: SORE THROAT Last Admin: 08/04/18 02:34 Dose: 1 each Enoxaparin Sodium (Lovenox -) 40 mg SQ DAILY [facility] Last Admin: 08/05/18 11:00 Dose: 40 mg Piperacillin Sod/Tazobactam (Sod 3.375 gm/ Dextrose) 50 mls @ 100 mls/hr IVPB Q8H-IV ALFREDA; Protocol Last Admin: 08/05/18 10:59 Dose: 100 mls/hr Lorazepam (Ativan -) 1 mg PO Q8H PRN PRN Reason: ANXIETY Last Admin: 08/05/18 11:53 Dose: 1 mg Methylprednisolone Sodium Succinate (Solu-Medrol -) 40 mg IVPUSH DAILY [facility] Last Admin: 08/05/18 11:00 Dose: 40 mg Morphine Sulfate (Morphine Sulfate) 0.5 mg IVPUSH Q4H PRN PRN Reason: PAIN LEVEL 6-10 Last Admin: 08/05/18 10:56 Dose: 0.5 mg Ondansetron HCl (Zofran Injection) 4 mg IVPUSH Q6H PRN PRN Reason: NAUSEA Last Admin: 08/05/18 11:00 Dose: 4 mg Polyethylene Glycol (Miralax (For Daily Use) -) 17 gm PO BID [facility] Last Admin: 08/05/18 11:01 Dose: Not Given Potassium Chloride (Potassium Chloride Oral Liquid) 20 meq PO DAILY [facility] Last Admin: 08/05/18 11:00 Dose: 20 meq Potassium Phos/Sodium Phos (Phos-Nak Packet -) 1 packet PO BID [facility] Last Admin: 08/05/18 11:00 Dose: 1 packet Senna (Senna -) 1 tab PO HS [facility] Last Admin: 08/04/18 22:18 Dose: 1 tab - Objective Vital Signs: Vital Signs Temperature 98.0 F 08/05/18 10:00 Pulse Rate 64 08/05/18 10:00 Respiratory Rate 20 08/05/18 10:00 Blood Pressure 131/72 08/05/18 10:00 O2 Sat by Pulse Oximetry (%) 96 08/04/18 21:00 Constitutional: Yes: No Distress, Calm Cardiovascular: Yes: Regular Rate and Rhythm Respiratory: Yes: Regular, CTA Bilaterally Gastrointestinal: Yes: Normal Bowel Sounds, Soft Musculoskeletal: Yes: WNL Extremities: Yes: WNL Neurological: Yes: Alert, Oriented Psychiatric: Yes: Alert, Oriented Labs: CBC, BMP 08/05/18 06:00 08/05/18 06:00 Assessment/Plan RUL Pneumonia Colitis/Constipation Adrenal Insufficiency HypoKalemia HypoNatremia Hypophosphatemia Anxiety Chronic Anemia plan continue current mgmt rest as per the team
[2018-08-05] MEDS: SENNOSIDES 8.6MG TABLET (FP) PO SCH (21:58)
[2018-08-06] MEDS ORDERED: DEXTROSE 5%-WATER - 50 ML IVPB ONE ×2 (02:39→10:08)
[2018-08-06] MEDS ORDERED: PIPERACILLIN/TAZOBACTAM 3.375 GM VIAL IVPB ONE ×2 (02:39→10:07)
[2018-08-06] MEDS: PIPERACILLIN/TAZOB 3.375 GM 3.375 GM in DEXTROSE 5%-WATER - 50 ML IVPB SCH ×3 (03:01→18:05)
[2018-08-06 07:03] LABS: HEMATOCRIT 34.8 % (32.4-45.2); HEMOGLOBIN 12.3 GM/dL (10.7-15.3); MCH 31.5 pg (25.7-33.7); MCHC 35.4 g/dl (32.0-36.0); MEAN CELL VOLUME 89.2 fl (80-96); MEAN PLT VOLUME 7.6 fl (7.5-11.1); PLATELET COUNT 228 K/MM3 (134-434); RBC 3.91 M/mm3 (3.60-5.2)
[2018-08-06 07:22] LABS: ANION GAP 9 MMOL/L (8-16); BLOOD UREA NITROGEN 15 mg/dL (7-18); CALCIUM 8.5 mg/dL (8.5-10.1); CHLORIDE 102 mmol/L (98-107); CO2 24 mmol/L (21-32); CREATININE 0.8 mg/dL (0.55-1.3); GLUCOSE,RANDOM 86 mg/dL (74-106); MAGNESIUM 1.7 mg/dL (1.8-2.4); PHOSPHOROUS 3.2 mg/dL (2.5-4.9); POTASSIUM 4.4 mmol/L (3.5-5.1); SODIUM 135 mmol/L (136-145)
[2018-08-06] MEDS: MORPHINE SULFATE 2 MG/ML VIAL IVPUSH PRN ×3 (10:37→22:06)
[2018-08-06] MEDS: LORazepam 1 MG TABLET PO PRN ×2 (10:38→18:06)
[2018-08-06] MEDS: methylPREDNISolone NA SUCC 40 MG/1 ML VIAL IVPUSH SCH (10:40)
[2018-08-06] MEDS: ENOXAPARIN NA (PORCINE) 40 MG/0.4 ML DISP.SYRIN SQ SCH (10:40)
[2018-08-06] MEDS: POTASSIUM CHLORIDE ORAL LIQUID 20 MEQ/15 ML PO SCH (10:40)
[2018-08-06] MEDS: NAPH,MB-DB/K PH,MBDB POWDER PACKET PO SCH ×2 (10:40→21:49)
[2018-08-06] MEDS: POLYETHYLENE GLYCOL 3350 119 GM BTL PO SCH ×2 (10:42→21:37)
--- NOTE | 2018-08-06 10:57 | PN ---
Physical Exam: SUBJECTIVE: Patient seen and examined, she reports she is feeling better but still with some nausea and cough. OBJECTIVE: Vital Signs Period Temp Pulse Resp BP Sys/Xiao Pulse Ox Last 24 Hr 97.3 F-97.9 F 54-74 18-20 118-155/69-79 95-95 GENERAL: Awake, alert, and fully oriented HEAD: Normal with no signs of trauma. EYES: PERRL, extraocular movements intact, sclera anicteric, conjunctiva clear. No ptosis. ENT: Ears normal, nares patent, oropharynx clear without exudates, moist mucous membranes. NECK: Trachea midline, full range of motion, supple. LUNGS: Ronchorous breath sounds in ruq on expiration, cough HEART: Regular rate and rhythm, S1, S2 without murmur, rub or gallop. ABDOMEN: Soft, diffusely TTP, nondistended, normoactive bowel sounds, no guarding, no rebound, no hepatosplenomegaly, no masses. EXTREMITIES: 2+ pulses, warm, well-perfused, no edema NEUROLOGICAL: No facial droop, tongue midline, normal speech, gait not observed. PSYCH: Normal mood, normal affect. SKIN: Warm, dry, normal turgor, no rashes or lesions noted Laboratory Results - last 24 hr 08/06/18 08/06/18 06:00 06:00 WBC 6.0 RBC 3.91 Hgb 12.3 Hct 34.8 MCV 89.2 MCH 31.5 MCHC 35.4 RDW 15.0 Plt Count 228 D MPV 7.6 Sodium 135 L Potassium 4.4 Chloride 102 Carbon Dioxide 24 Anion Gap 9 BUN 15 Creatinine 0.8 Creat Clearance w eGFR > 60 Random Glucose 86 Calcium 8.5 Phosphorus 3.2 Magnesium 1.7 L Active Medications Generic Name Dose Route Start Last Admin Trade Name Freq PRN Reason Stop Dose Admin Benzocaine/Menthol 1 each 08/04/18 02:10 08/04/18 02:34 Cepacol Lozenge - MM 1 each PRN PRN Administration SORE THROAT Enoxaparin Sodium 40 mg 08/02/18 10:00 08/06/18 10:40 Lovenox - SQ 40 mg DAILY ALFREDA Administration Piperacillin Sod/Tazobactam 50 mls @ 100 mls/hr 08/02/18 18:00 08/06/18 10:39 Sod 3.375 gm/ Dextrose IVPB 100 mls/hr Q8H-IV ALFREDA Administration Protocol Lorazepam 1 mg 08/05/18 18:03 08/06/18 10:38 Ativan - PO 1 mg Q8H PRN Administration ANXIETY Methylprednisolone Sodium Succinate 40 mg 08/03/18 10:00 08/06/18 10:40 Solu-Medrol - IVPUSH 40 mg DAILY ALFREDA Administration Morphine Sulfate 0.5 mg 08/03/18 09:16 08/06/18 10:37 Morphine Sulfate IVPUSH 0.5 mg Q4H PRN Administration PAIN LEVEL 6-10 Ondansetron HCl 4 mg 08/02/18 16:46 08/05/18 11:00 Zofran Injection IVPUSH 4 mg Q6H PRN Administration NAUSEA Polyethylene Glycol 17 gm 08/02/18 10:00 08/06/18 10:42 Miralax (For Daily Use) - PO Not Given BID ALFREDA Potassium Chloride 20 meq 08/03/18 10:00 08/06/18 10:40 Potassium Chloride Oral Liquid PO 20 meq DAILY ALFREDA Administration Potassium Phos/Sodium Phos 1 packet 08/02/18 22:00 08/06/18 10:40 Phos-Nak Packet - PO 1 packet BID ALFREDA Administration Senna 1 tab 08/02/18 22:00 08/05/18 21:58 Senna - PO 1 tab HS ALFREDA Administration ASSESSMENT/PLAN: 68 year old female with PMH significant for anemia, GI bleed, hiatal hernia s/p repair, duodenal perf s/p repair, adrenal insufficiency, hep C s/p treatment, anxiety, ROSANA, MVP, presented to the ED with 1 week of frequent vomiting as well as 2 weeks of cough and sore throat. CT showed RUQ consolidation, CT of abdomen negative for SBO but showed some distal colitis. Patient admitted for RUL PNA and colitis, started on IV antibiotics. RUL Pneumonia - RUL consolidation noted on CT chest - Possibly due to aspiration; one week of frequent vomiting - WBC 11 -> 6.0 today - ID specialist Dr. Conti - Continue on Zosyn 3.375 q8h, today last day - Tomorrow Start Augmentin x 5 days - Solu-Medrol 40 mg IVP qday - Urine and preliminary blood cultures negative Colitis/Constipation - Abdominal CT show no signs of small or large bowel obstruction on CT scan, though likely distal colitis noted - Large BM today - Miralax BID - Senna 1 tab PO qhs Adrenal Insufficiency - Not currently on chronic steroids though has been in the past - Start IV Solu-medrol 40 mg IVP qday - Endocrinology consult ordered HypoKalemia - Resolved; 4.4 today - D/c IV fluid with potassium - KCl 20 meq PO qday - Zofran 4 mg IVP q6h PRN for nausea - Monitor BMP HypoNatremia - Improving - 125 on admission, now 135 - Monitor labs Hypophosphatemia - Resolved - 2.3 -> 1.6 -> 1.9 -> 2.0 -> 3.2 - Continue phos packets BID Anxiety - 1 mg PO q8 PRN, MDD 2 mg Chronic Anemia -Stable - H/H 07/29/34.8 - Monitor CBC for acute loss - If large decrease, consider FOB with hx of GI bleeds FEN - PO intake adequate - Replete as needed - Regular diet Prophylaxis - DVT: Lovenox 40 mg sq qday Disp: Plan to d/c tomorrow on home abx. FULL Code Visit type - Emergency Visit Emergency Visit: No - New Patient This patient is new to me today: No - Critical Care Critical Care patient: No
--- NOTE | 2018-08-06 13:03 | PN ---
Progress Note, Physician History of Present Illness: patient stable no new issues - Current Medication List Current Medications: Active Medications Benzocaine/Menthol (Cepacol Lozenge -) 1 each MM PRN PRN PRN Reason: SORE THROAT Last Admin: 08/04/18 02:34 Dose: 1 each Enoxaparin Sodium (Lovenox -) 40 mg SQ DAILY [facility] Last Admin: 08/06/18 10:40 Dose: 40 mg Piperacillin Sod/Tazobactam (Sod 3.375 gm/ Dextrose) 50 mls @ 100 mls/hr IVPB Q8H-IV ALFREDA; Protocol Last Admin: 08/06/18 10:39 Dose: 100 mls/hr Lorazepam (Ativan -) 1 mg PO Q8H PRN PRN Reason: ANXIETY Last Admin: 08/06/18 10:38 Dose: 1 mg Methylprednisolone Sodium Succinate (Solu-Medrol -) 40 mg IVPUSH DAILY [facility] Last Admin: 08/06/18 10:40 Dose: 40 mg Morphine Sulfate (Morphine Sulfate) 0.5 mg IVPUSH Q4H PRN PRN Reason: PAIN LEVEL 6-10 Last Admin: 08/06/18 10:37 Dose: 0.5 mg Ondansetron HCl (Zofran Injection) 4 mg IVPUSH Q6H PRN PRN Reason: NAUSEA Last Admin: 08/05/18 11:00 Dose: 4 mg Polyethylene Glycol (Miralax (For Daily Use) -) 17 gm PO BID [facility] Last Admin: 08/06/18 10:42 Dose: Not Given Potassium Chloride (Potassium Chloride Oral Liquid) 20 meq PO DAILY [facility] Last Admin: 08/06/18 10:40 Dose: 20 meq Potassium Phos/Sodium Phos (Phos-Nak Packet -) 1 packet PO BID [facility] Last Admin: 08/06/18 10:40 Dose: 1 packet Senna (Senna -) 1 tab PO HS [facility] Last Admin: 08/05/18 21:58 Dose: 1 tab - Objective Vital Signs: Vital Signs Temperature 97.8 F 08/06/18 10:00 Pulse Rate 68 08/06/18 10:00 Respiratory Rate 18 08/06/18 10:00 Blood Pressure 117/72 08/06/18 10:00 O2 Sat by Pulse Oximetry (%) 95 08/06/18 02:18 Constitutional: Yes: No Distress, Calm Cardiovascular: Yes: Regular Rate and Rhythm Respiratory: Yes: Regular, CTA Bilaterally Gastrointestinal: Yes: Normal Bowel Sounds, Soft Musculoskeletal: Yes: WNL Extremities: Yes: WNL Neurological: Yes: Alert, Oriented Psychiatric: Yes: Alert, Oriented Labs: CBC, BMP 08/06/18 06:00 08/06/18 06:00 Assessment/Plan RUL Pneumonia Colitis/Constipation Adrenal Insufficiency HypoKalemia HypoNatremia Hypophosphatemia Anxiety Chronic Anemia plan continue current mgmt rest as per the team can stop the iv abx after today incentive mitzi switch to oral augmentin tomorrow for another 5 days
--- NOTE | 2018-08-06 15:15 | CONSULT ---
Consult Consult Specialty:: Endocrinology Referred by:: Veronica Henry Reason for Consultation:: Adrenal Insufficiency - History of Present Illness Chief Complaint: Cough, fever History of Present Illness: This is a 68 yo female with h/o anemia, GI Bleeds, Hiatal hernia s/p repair, duodenal perf s/p repair, adrenal insufficiency, Hep C s/p treatment, Anxiety, ROSANA, MVP, admitted with complaint of 2 weeks of cough productive for green sputum, fever, sore throat, decreased PO intake, nausea, abdominal pain, bilious vomiting and no bowel movement for one week. Pt found to have pneumonia and treated with IV abx. She is also being treated with Methylprednisolone IV. Pt was on Hydrocortisone 10mg daily at home. Pt feels much better. 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 osteomyelitis) Endocrine: Yes: Other (adrenal insufficiency) - Past Surgical History Past Surgical History: Yes: Hysterectomy, Joint Replacement (Ttl Knee replacement x 2 right knee with 2 right knee revisions, Ttl Left knee replacement. MRSA infection) - Alcohol/Substance Use Hx Alcohol Use: No History of Substance Use: reports: None - Smoking History Smoking history: Never smoked Have you smoked in the past 12 months: No Aproximately how many cigarettes per day: 2 If you are a former smoker, when did you quit?: may 2013 - Social History ADL: Independent (lives in senior building without stairs, ambulated with [place]) History of Recent Travel: No Home Medications - Allergies Allergies/Adverse Reactions: Allergies Allergy/AdvReac Type Severity Reaction Status Date / Time No Known Drug Allergies Allergy Verified 08/01/18 20:31 tape AdvReac Uncoded 08/01/18 20:31 - Home Medications Home Medications: Ambulatory Orders Metoprolol Succinate [Toprol XL -] 25 mg PO BID 01/09/17 Docusate Sodium [Colace -] 200 mg PO BID 08/01/18 Escitalopram Oxalate [Lexapro -] 20 mg PO DAILY 08/01/18 LORazepam [Ativan] 1 mg PO TID PRN MDD 2mg 08/01/18 Ondansetron HCl [Zofran] 4 mg PO Q6H PRN 08/01/18 Pantoprazole Sodium [Protonix -] 40 mg PO DAILY 08/01/18 Polyethylene Glycol 3350 [Miralax 119 gm Btl -] 17 gm PO DAILY PRN 08/01/18 Zolpidem Tartrate [Ambien] 10 mg PO HS PRN MDD 5mg 08/01/18 Oxycodone HCl 10 mg PO Q6H 08/02/18 Amox-Tr/K Cl [Augmentin - 875Mg Tablet] 1 tab PO BID #10 tablet 08/07/18 Guaifenesin [Mucinex] 600 mg PO Q12H #20 tab.er.12h 08/07/18 Hydrocortisone [Cortef] 10 mg PO DAILY #30 tablet 08/07/18 Hydrocortisone [Cortef] 20 mg PO AM 30 Days #30 tablet 08/07/18 Potassium Chloride 20 meq PO DAILY #30 tab.er.prt 08/07/18 Prednisone [Deltasone] See Taper PO DAILY 9 Days #9 tablet 08/07/18 Review of Systems - Review of Systems Constitutional: reports: No Symptoms Eyes: reports: No Symptoms HENT: reports: No Symptoms Neck: reports: No Symptoms Respiratory: reports: Cough, SOB Gastrointestinal: reports: No Symptoms Genitourinary: reports: No Symptoms Musculoskeletal: reports: No Symptoms Integumentary: reports: No Symptoms Neurological: reports: No Symptoms Endocrine: reports: No Symptoms Physical Exam Vital Signs: Vital Signs Temperature 97.7 F 08/06/18 14:12 Pulse Rate 89 08/06/18 14:12 Respiratory Rate 20 08/06/18 14:12 Blood Pressure 110/68 08/06/18 14:12 O2 Sat by Pulse Oximetry (%) 95 08/06/18 02:18 Constitutional: Yes: No Distress, Calm Eyes: Yes: Conjunctiva Clear, EOM Intact HENT: Yes: Atraumatic, Normocephalic Neck: Yes: Supple, Trachea Midline Cardiovascular: Yes: Regular Rate and Rhythm Respiratory: Yes: Regular, CTA Bilaterally Gastrointestinal: Yes: Normal Bowel Sounds, Soft Musculoskeletal: Yes: WNL Extremities: Yes: WNL Edema: No Neurological: Yes: Alert, Oriented Labs: CBC, BMP 08/06/18 06:00 08/06/18 06:00 Assessment/Plan AP: Pneumonia Adrenal Insufficiency Colitis Anxiety Decrease dose of Methyprednisone to 20 daily tomorrow and then 10 the day after tomorrow. Was on Hydrocortisone 10mg daily at home May restart Hyrocortisone at 20mg in the morning and 10 mg at 2 pm starting Sunday
[2018-08-06] MEDS: SENNOSIDES 8.6MG TABLET (FP) PO SCH (21:49)
[2018-08-07] MEDS: PIPERACILLIN/TAZOB 3.375 GM 3.375 GM in DEXTROSE 5%-WATER - 50 ML IVPB SCH ×2 (02:07→10:13)
[2018-08-07] MEDS ORDERED: traMADol HCL 50 MG TABLET PO ONE (03:02)
[2018-08-07] MEDS: LORazepam 1 MG TABLET PO PRN ×2 (03:19→12:22)
[2018-08-07 07:30] LABS: HEMATOCRIT 32.2 % (32.4-45.2); HEMOGLOBIN 11.7 GM/dL (10.7-15.3); MCHC 36.3 g/dl (32.0-36.0); MEAN CELL VOLUME 88.2 fl (80-96); MEAN PLT VOLUME 7.3 fl (7.5-11.1); PLATELET COUNT 265 K/MM3 (134-434); RBC 3.65 M/mm3 (3.60-5.2); RDW 14.7 % (11.6-15.6); WHITE BLOOD COUNT 8.3 K/mm3 (4.0-10.0)
[2018-08-07 08:02] LABS: ANION GAP 9 MMOL/L (8-16); BLOOD UREA NITROGEN 24 mg/dL (7-18); CALCIUM 8.3 mg/dL (8.5-10.1); CHLORIDE 102 mmol/L (98-107); CO2 24 mmol/L (21-32); CREATININE 0.8 mg/dL (0.55-1.3); GLUCOSE,RANDOM 87 mg/dL (74-106); MAGNESIUM 1.9 mg/dL (1.8-2.4); PHOSPHOROUS 3.6 mg/dL (2.5-4.9); POTASSIUM 4.5 mmol/L (3.5-5.1); SODIUM 135 mmol/L (136-145)
[2018-08-07] MEDS ORDERED: oxyCODONE HCL 5 MG TABLET PO PRN (09:27)
[2018-08-07] MEDS ORDERED: PIPERACILLIN/TAZOBACTAM 3.375 GM VIAL IVPB ONE (09:48)
[2018-08-07] MEDS ORDERED: DEXTROSE 5%-WATER - 50 ML IVPB ONE (09:48)
[2018-08-07] MEDS ORDERED: methylPREDNISolone NA SUCC 40 MG/1 ML VIAL IVPUSH SCH (10:00)
[2018-08-07] MEDS: ENOXAPARIN NA (PORCINE) 40 MG/0.4 ML DISP.SYRIN SQ SCH (10:12)
[2018-08-07] MEDS: NAPH,MB-DB/K PH,MBDB POWDER PACKET PO SCH (10:12)
[2018-08-07] MEDS: POLYETHYLENE GLYCOL 3350 119 GM BTL PO SCH (10:12)
[2018-08-07] MEDS: POTASSIUM CHLORIDE ORAL LIQUID 20 MEQ/15 ML PO SCH (10:50)
--- NOTE | 2018-08-07 11:47 | DS ---
Physical Exam: SUBJECTIVE: Patient seen and examined. Patient reports she is feeling better, still coughing. Seen by broom stitcher Dr. Parra. OBJECTIVE: Vital Signs Period Temp Pulse Resp BP Sys/Xiao Pulse Ox Last 24 Hr 97.7 F-97.9 F 73-89 18-20 110-133/68-90 96 PHYSICAL EXAM GENERAL: Awake, alert, and fully oriented HEAD: Normal with no signs of trauma. EYES: PERRL, extraocular movements intact, sclera anicteric, conjunctiva clear. No ptosis. ENT: Ears normal, nares patent, oropharynx clear without exudates, moist mucous membranes. NECK: Trachea midline, full range of motion, supple. LUNGS: Ronchorous breath sounds in ruq on expiration, cough HEART: Regular rate and rhythm, S1, S2 without murmur, rub or gallop. ABDOMEN: Soft, diffusely TTP, nondistended, normoactive bowel sounds, no guarding, no rebound, no hepatosplenomegaly, no masses. EXTREMITIES: 2+ pulses, warm, well-perfused, no edema NEUROLOGICAL: No facial droop, tongue midline, normal speech, gait not observed. PSYCH: Normal mood, normal affect. SKIN: Warm, dry, normal turgor, no rashes or lesions noted LABS Laboratory Results - last 24 hr 08/07/18 08/07/18 06:15 06:15 WBC 8.3 RBC 3.65 Hgb 11.7 Hct 32.2 L MCV 88.2 MCH 32.0 MCHC 36.3 H RDW 14.7 Plt Count 265 MPV 7.3 L Sodium 135 L Potassium 4.5 Chloride 102 Carbon Dioxide 24 Anion Gap 9 BUN 24 H Creatinine 0.8 Creat Clearance w eGFR > 60 Random Glucose 87 Calcium 8.3 L Phosphorus 3.6 Magnesium 1.9 HOSPITAL COURSE: Date of Admission:08/02/18 Date of Discharge: 08/07/18 68 year old female with PMH significant for anemia, GI bleed, hiatal hernia s/p repair, duodenal perf s/p repair, adrenal insufficiency, hep C s/p treatment, anxiety, ROSANA, MVP, presented to the ED with 1 week of frequent vomiting as well as 2 weeks of cough and sore throat. CT showed RUQ consolidation, CT of abdomen negative for SBO but showed some distal colitis. Patient admitted for RUL PNA and colitis, started on IV antibiotics. RUL Pneumonia - RUL consolidation noted on CT chest - Possibly due to aspiration; one week of frequent vomiting - WBC 11 -> 8.3today - ID specialist Dr. Conti - Completed course of Zosyn 3.375 q8h - D/c on Augmentin 875 mg BID x 5 days - Urine and blood cultures negative Colitis/Constipation - Abdominal CT showed no signs of small or large bowel obstruction on CT scan , though likely distal colitis noted - Miralax BID - Senna 1 tab PO qhs Adrenal Insufficiency -Seen by her outpatient endocrineologist Dr. Kumar - Prednisone 20 mg taper - Then start Hydrocortisone 20 mg qam and 10 mg @ 13:00 qday - Follow up in one month HypoKalemia - Resolved; 4.5 today - KCl 20 meq PO qday HypoNatremia - Improving - 125 on admission, now 135 Hypophosphatemia - Resolved - 2.3 -> 3.6 Anxiety - 1 mg PO q8 PRN, MDD 2 mg Chronic Anemia -Stable - H/H 11.7/32.2 Minutes to complete discharge: 35 Discharge Summary Reason For Visit: COLITIS,PNEUMONIA,ABD PAIN,HYPONATREMIA Current Active Problems Colitis (Acute) Pneumonia (Acute) - Instructions Diet, Activity, Other Instructions: Ms. Lorenz, You were admitted to [facility] from 08/02 -08/07/18 for pneumonia and severe vomiting. CT scan of the chest showed right uppler lobe consolidation. CT scan of abdomen some distal colitis. You were treated with IV antibiotics and steroids, and your potassium levels were brought up. You were seen by your broom stitcher Dr. Kumar who re-started you on your out patient daily steriods. Resume home medications as before with the following additions: Potassium Chloride 20 meq once a day Augmentin 875 mg every 12 hours x 5 days Prednisone taper starting TOMORROW 20 mg once a day x 2 days 10 mg once a day x 2 days 5 mg once a day x 2 days THEN Start Hydrocortisone 20 mg at 8:00 am every day and 10 mg at 1:00 PM every day It is important to follow up with your broom stitcher Dr. Kumar in ONE MONTH. Please return to the ER if you have any signs or symptoms of chest pain, shortness of breath, uncontrollable fever, chills, nausea, vomiting, numbness, tingling, or weakness in any part of your body, changes in vision, or slurred speech. [facility] [phone] Referrals: Kcai Alvarez MD [Primary Care Provider] - Pau Kumar MD [Staff Physician] - 1 Month Disposition: HOME - Home Medications Comprehensive Discharge Medication List: Ambulatory Orders Metoprolol Succinate [Toprol XL -] 25 mg PO BID 01/09/17 Docusate Sodium [Colace -] 200 mg PO BID 08/01/18 Escitalopram Oxalate [Lexapro -] 20 mg PO DAILY 08/01/18 LORazepam [Ativan] 1 mg PO TID PRN MDD 2mg 08/01/18 Ondansetron HCl [Zofran] 4 mg PO Q6H PRN 08/01/18 Pantoprazole Sodium [Protonix -] 40 mg PO DAILY 08/01/18 Polyethylene Glycol 3350 [Miralax 119 gm Btl -] 17 gm PO DAILY PRN 08/01/18 Zolpidem Tartrate [Ambien] 10 mg PO HS PRN MDD 5mg 08/01/18 Oxycodone HCl 10 mg PO Q6H 08/02/18 Amox-Tr/K Cl [Augmentin - 875Mg Tablet] 1 tab PO BID #10 tablet 08/07/18 Hydrocortisone [Cortef] 10 mg PO DAILY #30 tablet 08/07/18 Hydrocortisone [Cortef] 20 mg PO AM 30 Days #30 tablet 08/07/18 Potassium Chloride 20 meq PO DAILY #30 tab.er.prt 08/07/18 Prednisone [Deltasone] See Taper PO DAILY 9 Days #9 tablet 08/07/18 This patient is new to me today: No Emergency Visit: No Critical Care patient: No - Discharge Referral [facility]erred to [facility] No
--- NOTE | 2018-08-07 12:08 | PN ---
Progress Note, Physician History of Present Illness: stable no new issues doing well endo note noted - Current Medication List Current Medications: Active Medications Benzocaine/Menthol (Cepacol Lozenge -) 1 each MM PRN PRN PRN Reason: SORE THROAT Last Admin: 08/04/18 02:34 Dose: 1 each Enoxaparin Sodium (Lovenox -) 40 mg SQ DAILY [facility] Last Admin: 08/07/18 10:12 Dose: 40 mg Piperacillin Sod/Tazobactam (Sod 3.375 gm/ Dextrose) 50 mls @ 100 mls/hr IVPB Q8H-IV ALFREDA; Protocol Last Admin: 08/07/18 10:13 Dose: 100 mls/hr Lorazepam (Ativan -) 1 mg PO Q8H PRN PRN Reason: ANXIETY Last Admin: 08/07/18 03:19 Dose: 1 mg Methylprednisolone Sodium Succinate (Solu-Medrol -) 20 mg IVPUSH DAILY [facility] Last Admin: 08/07/18 10:51 Dose: 20 mg Methylprednisolone Sodium Succinate (Solu-Medrol -) 10 mg IVPUSH ONCE ONE Stop: 08/08/18 10:01 Ondansetron HCl (Zofran Injection) 4 mg IVPUSH Q6H PRN PRN Reason: NAUSEA Last Admin: 08/05/18 11:00 Dose: 4 mg Oxycodone HCl (Roxicodone -) 5 mg PO Q6H PRN PRN Reason: PAIN LEVEL 6-10 Last Admin: 08/07/18 10:11 Dose: 5 mg Polyethylene Glycol (Miralax (For Daily Use) -) 17 gm PO BID [facility] Last Admin: 08/07/18 10:12 Dose: Not Given Potassium Chloride (Potassium Chloride Oral Liquid) 20 meq PO DAILY [facility] Last Admin: 08/07/18 10:50 Dose: 20 meq Potassium Phos/Sodium Phos (Phos-Nak Packet -) 1 packet PO BID [facility] Last Admin: 08/07/18 10:12 Dose: 1 packet Senna (Senna -) 1 tab PO HS [facility] Last Admin: 08/06/18 21:49 Dose: Not Given - Objective Vital Signs: Vital Signs Temperature 97.7 F 08/07/18 06:00 Pulse Rate 73 08/07/18 06:00 Respiratory Rate 18 08/07/18 06:00 Blood Pressure 133/90 08/07/18 06:00 O2 Sat by Pulse Oximetry (%) 96 08/06/18 21:00 Constitutional: Yes: No Distress, Calm Cardiovascular: Yes: Regular Rate and Rhythm Respiratory: Yes: Regular, CTA Bilaterally Gastrointestinal: Yes: Normal Bowel Sounds, Soft Musculoskeletal: Yes: WNL Extremities: Yes: WNL Neurological: Yes: Alert, Oriented Psychiatric: Yes: Alert, Oriented Labs: CBC, BMP 08/07/18 06:15 08/07/18 06:15 Assessment/Plan RUL Pneumonia Colitis/Constipation Adrenal Insufficiency HypoKalemia HypoNatremia Hypophosphatemia Anxiety Chronic Anemia plan continue current mgmt rest as per the team incentive mitzi switch to oral augmentin for another 5 days
[2018-08-07 14:52] VITALS: BP 112/58; PULSE 104; TEMP 97.7
[2018-08-08] MEDS ORDERED: methylPREDNISolone NA SUCC 40 MG/1 ML VIAL IVPUSH ONE (10:00)
== END 2018-08-07 16:58 | disposition home or self-care (01) | DRG 178 ==
LOC: JER 19:03 → JERBED 08-02 02:24 → J7W 08-02 21:45
PROVIDERS: ADMIT Internal Medicine; ATTEND Nurse Practitioner Adult Health
DX: J69.0 Pneumonitis due to inhalation of food and vomit (principal); E87.1 Hypo-osmolality and hyponatremia; E27.40 Unspecified adrenocortical insufficiency; K52.9 Noninfective gastroenteritis and colitis, unspecified; E87.6 Hypokalemia; E83.39 Other disorders of phosphorus metabolism; F41.9 Anxiety disorder, unspecified; D64.9 Anemia, unspecified; K59.00 Constipation, unspecified
CPT/HCPCS: 36415; 71045-TC-FY; 71260-TC; 74177-TC; 80048; 80053; 81003; 82272; 83605; 83735; 84100; 85025; 85027; 87040; 87081; 87086; 87804; 93005; 93010; 99284-25; J0131

== ENCOUNTER 2019-02-18 12:49 | Emergency (ER) | payer OTHER ==
[2019-02-18] MEDS ORDERED: KETOROLAC TROMETHAMINE 30 MG/1 ML VIAL IM ONE (13:21)
[2019-02-18] MEDS ORDERED: KETOROLAC TROMETHAMINE 30 MG/1 ML VIAL ONE (13:26)
--- NOTE | 2019-02-18 13:27 | PDOC ---
History of Present Illness - General Chief Complaint: Wound Stated Complaint: RT. ARM WOUND Time Seen by Provider: 02/18/19 13:08 History Source: Patient Exam Limitations: Clinical Condition - History of Present Illness Initial Comments: 02/18/19 13:22 Patient with no significant past medical history present with complaint of one- week history of right lateral forearm abscess with diffuse redness around abscess and drainage from site. Patient denies fever, chills, numbness or tingling sensation. Reported pain to abscess site. Timing/Duration: reports: week (1) Past History - Past Medical History Allergies/Adverse Reactions: Allergies Allergy/AdvReac Type Severity Reaction Status Date / Time No Known Drug Allergies Allergy Verified 08/01/18 20:31 tape AdvReac Uncoded 08/01/18 20:31 Home Medications: Ambulatory Orders Metoprolol Succinate [Toprol XL -] 25 mg PO BID 01/09/17 Docusate Sodium [Colace -] 200 mg PO BID 08/01/18 Escitalopram Oxalate [Lexapro -] 20 mg PO DAILY 08/01/18 LORazepam [Ativan] 1 mg PO TID PRN MDD 2mg 08/01/18 Ondansetron HCl [Zofran] 4 mg PO Q6H PRN 08/01/18 Pantoprazole Sodium [Protonix -] 40 mg PO DAILY 08/01/18 Polyethylene Glycol 3350 [Miralax 119 gm Btl -] 17 gm PO DAILY PRN 08/01/18 Zolpidem Tartrate [Ambien] 10 mg PO HS PRN MDD 5mg 08/01/18 Oxycodone HCl 10 mg PO Q6H 08/02/18 Amox-Tr/K Cl [Augmentin - 875Mg Tablet] 1 tab PO BID #10 tablet 08/07/18 Guaifenesin [Mucinex] 600 mg PO Q12H #20 tab.er.12h 08/07/18 Hydrocortisone [Cortef] 10 mg PO DAILY #30 tablet 08/07/18 Hydrocortisone [Cortef] 20 mg PO AM 30 Days #30 tablet 08/07/18 Potassium Chloride 20 meq PO DAILY #30 tab.er.prt 08/07/18 Prednisone [Deltasone] See Taper PO DAILY 9 Days #9 tablet 08/07/18 Cephalexin Monohydrate [Keflex -] 500 mg PO BID 7 Days #14 capsule 02/18/19 Ibuprofen 800 mg PO Q8H PRN #20 tablet 02/18/19 Mupirocin Ointment [Bactroban 2% Ointment -] 1 applic TP BID #1 tube 02/18/19 Sulfamethoxazole/Trimethoprim [Bactrim Ds -] 1 tab PO BID #14 tablet 02/18/19 Anemia: Yes Asthma: Yes Cancer: No Cardiac Disorders: Yes (Mitral Valve Prolapse) CVA: No COPD: Yes CHF: No Dementia: No Diabetes: No GI Disorders: Yes (GASTRIC ULCER) Disorders: No HTN: Yes Hypercholesterolemia: No Liver Disease: No Psychiatric Problems: Yes (anxiety) Seizures: No Thyroid Disease: No - Surgical History Abdominal Surgery: Yes (HERNIA REPAIR FOR RUPTURED HERNIA (2)) Appendectomy: Yes Cardiac Surgery: No Cholecystectomy: No Lung Surgery: No Neurologic Surgery: No Orthopedic Surgery: Yes (Bilateral knee replacement (3 in right left, 1 in left) ) - Reproductive History Cervical CA: No Dysfunctional Uterine Bleeding: No Ectopic : No Endometrial CA: No Polycystic Ovaries: No Tubal Ligation: No - Immunization History Td Vaccination: Yes Immunization Up to Date: Yes - Suicide/Smoking/Psychosocial Hx Smoking Status: Yes Smoking History: Never smoked Years of Tobacco Use: 20 Have you smoked in the past 12 months: No Number of Cigarettes Smoked Daily: 2 If you are a former smoker, when did you quit?: may 2013 Cigars Per Day: 0 Information on smoking cessation initiated: No 'Breaking Loose' booklet given: 06/17/13 Hx Alcohol Use: No Drug/Substance Use Hx: No Substance Use Type: None Hx Substance Use Treatment: No Review of Systems - Review of Systems Able to Perform ROS?: Yes Is the patient limited Polish proficient: No Constitutional: No: Chills, Fever, Malaise HEENTM: No: Symptoms Reported Respiratory: No: Symptoms reported Cardiac (ROS): No: Symptoms Reported Musculoskeletal: Yes: Symptoms Reported, See HPI, Muscle Pain (right lateral distal forearm) Integumentary: Yes: Symptoms Reported, See HPI, Erythema (left forearm), Lumps ( abscess) Neurological: No: Numbness, Paresthesia, Tingling All Other Systems: Reviewed and Negative *Physical Exam - Vital Signs Last Vital Signs Temp Pulse Resp BP Pulse Ox 98.7 F 66 16 134/87 96 02/18/19 13:05 02/18/19 13:05 02/18/19 13:05 02/18/19 13:05 02/18/19 13:05 - Physical Exam Comments: 02/18/19 13:30 GENERAL: Well developed, well nourished. Awake and alert in mild acute distress. NECK: Supple. Full ROM. CARDIOVASCULAR: Regular rate and rhythm. No murmurs, rubs, or gallops. Distal pulses are 2+ and symmetric. PULMONARY: No evidence of respiratory distress. MUSCULOSKELETAL Normal range of motion at all joints. moderate tenderness over right forearm abscess with moderate skin erythema. FROM of elbow, arm and wrist. Normal strength to RUE. SKIN: Warm and dry. Normal capillary refill. 3cm abscess to right radial-dorsal aspect of right distal forearm with 5cm area of surrounding erythema NEUROLOGICAL: Alert, awake, appropriate. Gait is normal without ataxia. PSYCHIATRIC: Cooperative. Good eye contact. Appropriate mood General Appearance: Yes: Nourished, Appropriately Dressed. No: Apparent Distress Medical Decision Making - Medical Decision Making 02/18/19 13:22 Patient with no significant past medical history present with complaint of one- week history of right lateral forearm abscess with diffuse redness around abscess and drainage from site. Patient denies fever, chills, numbness or tingling sensation. Reported pain to abscess site. Exam significant for 3 cm abscess to radiodorsal aspect of distal right forearm with 5 cm area of diffuse erythema around abscess. Tiny opening to absent with mild drainage. Free range of motion of right wrist and forearm. Toradol 30 mg IM given for pain. Patient is stable for outpatient management with Bactrim and Keflex antibiotics with topical Bactroban for abscess and ibuprofen as needed for pain. Patient advised to apply hot compress the abscess twice a day and follow-up with PCP few days for reassessment. Patient is stable for discharge *DC/Admit/Observation/Transfer Diagnosis at time of Disposition: Abscess of right forearm - Discharge Dispostion Disposition: HOME Condition at time of disposition: Stable Decision to Admit order: No - Prescriptions Prescriptions: Cephalexin Monohydrate [Keflex -] 500 mg PO BID 7 Days #14 capsule Ibuprofen 800 mg PO Q8H PRN #20 tablet PRN Reason: pain Mupirocin Ointment [Bactroban 2% Ointment -] 1 applic TP BID #1 tube Sulfamethoxazole/Trimethoprim [Bactrim Ds -] 1 tab PO BID #14 tablet - Referrals Referrals: Missy Larry MD [Staff Physician] - - Patient Instructions Printed Discharge Instructions: DI for Wound Infection Additional Instructions: Take medications as prescribed. Apply hot compresses 2-3 times a day for 5-10 minutes as needed for swelling. Take prescribed Motrin as needed for pain. Follow-up with PCP in 4 days or referred dermatology for reassessment. - Post Discharge Activity
[2019-02-18 13:34] VITALS: BP 134/87; PULSE 66; TEMP 98.7; BMI 28.3
== END 2019-02-18 13:45 | disposition home or self-care (01) ==
LOC: JERFT 12:49
PROC: 3E0233Z Introduction of Anti-inflammatory into Muscle, Percutaneous Approach (ICD-10-PCS; principal; 2019-02-18)
DX: L02.413 Cutaneous abscess of right upper limb (principal); I10 Essential (primary) hypertension; J45.909 Unspecified asthma, uncomplicated; D64.9 Anemia, unspecified; F41.9 Anxiety disorder, unspecified
CPT/HCPCS: 96372; 99281-25

== ENCOUNTER 2019-05-03 18:49 | Inpatient (IN) | payer OTHER ==
--- NOTE | 2019-05-03 19:18 | PDOC ---
History of Present Illness - General History Source: Patient Exam Limitations: No Limitations - History of Present Illness Initial Comments: Pt is a 69 yo F, with PMH of anemia, GI bleed, esophageal hernia repair, duodenal perforation, Hep C, and COPD, who is presenting with diffuse upper abdominal pain x5 days, associated with persistent nausea and vomiting. Pt states the pain is sharp and constant, worse with moving. Pt states she had loose stools 4-5 days ago, but has not had any BMs and has had decreased urination since her PO intake has decreased. Pt was having normal BMs prior to that point. Pt has not been able to tolerate any PO intake over the past few days, and has been vomiting throughout the day. Pt denies any fevers, headache, vision changes, syncope, chest pain, palpitations, SOB, urinary symptoms, or leg swelling. Allergies: NKDA PCP: Dr. Kaci Alvarez Surgeon: Dr. Maurer ([facility]) Social: Pt denies any cigarette, alcohol, or drug use. Pt denies any recent travel or sick contacts. Surgical: duodenal perforation and esophageal hernia repair. Family: no relevant history. 05/03/19 21:54 05/03/19 21:57 <Natalie Long - Last Filed: 05/03/19 23:47> <Charles Stanley - Last Filed: 05/04/19 01:38> - General Chief Complaint: Nausea/Vomiting Stated Complaint: ABDOMINAL PAIN Time Seen by Provider: 05/03/19 19:17 Past History - Travel Traveled outside of the country in the last 30 days: No Close contact w/someone who was outside of country & ill: No - Past Medical History Anemia: Yes Asthma: Yes Cancer: No Cardiac Disorders: Yes (Mitral Valve Prolapse) CVA: No COPD: Yes CHF: No Dementia: No Diabetes: No GI Disorders: Yes (GASTRIC ULCER) Disorders: No HTN: Yes Hypercholesterolemia: No Liver Disease: No Psychiatric Problems: Yes (anxiety) Seizures: No Thyroid Disease: No - Surgical History Abdominal Surgery: Yes (HERNIA REPAIR FOR RUPTURED HERNIA (2)) Appendectomy: Yes Cardiac Surgery: No Cholecystectomy: No Lung Surgery: No Neurologic Surgery: No Orthopedic Surgery: Yes (Bilateral knee replacement (3 in right left, 1 in left) ) - Reproductive History Cervical CA: No Dysfunctional Uterine Bleeding: No Ectopic : No Endometrial CA: No Polycystic Ovaries: No Tubal Ligation: No - Immunization History Td Vaccination: Yes Immunization Up to Date: Yes - Suicide/Smoking/Psychosocial Hx Smoking Status: Yes Smoking History: Never smoked Years of Tobacco Use: 20 Have you smoked in the past 12 months: No Number of Cigarettes Smoked Daily: 2 If you are a former smoker, when did you quit?: may 2013 Cigars Per Day: 0 'Breaking Loose' booklet given: 06/17/13 Hx Alcohol Use: No Drug/Substance Use Hx: No Substance Use Type: None Hx Substance Use Treatment: No <Natalie Long - Last Filed: 05/03/19 23:47> <Charles Stanley - Last Filed: 05/04/19 01:38> - Past Medical History Allergies/Adverse Reactions: Allergies Allergy/AdvReac Type Severity Reaction Status Date / Time No Known Drug Allergies Allergy Verified 05/03/19 19:11 tape AdvReac Uncoded 05/03/19 19:11 Home Medications: Ambulatory Orders Metoprolol Succinate [Toprol XL -] 25 mg PO BID 01/09/17 Docusate Sodium [Colace -] 200 mg PO BID 08/01/18 Escitalopram Oxalate [Lexapro -] 20 mg PO DAILY 08/01/18 LORazepam [Ativan] 1 mg PO TID PRN MDD 2mg 08/01/18 Ondansetron HCl [Zofran] 4 mg PO Q6H PRN 08/01/18 Pantoprazole Sodium [Protonix -] 40 mg PO DAILY 08/01/18 Polyethylene Glycol 3350 [Miralax 119 gm Btl -] 17 gm PO DAILY PRN 08/01/18 Zolpidem Tartrate [Ambien] 10 mg PO HS PRN MDD 5mg 08/01/18 Oxycodone HCl 10 mg PO Q6H 08/02/18 Amox-Tr/K Cl [Augmentin - 875Mg Tablet] 1 tab PO BID #10 tablet 08/07/18 Guaifenesin [Mucinex] 600 mg PO Q12H #20 tab.er.12h 08/07/18 Hydrocortisone [Cortef] 10 mg PO DAILY #30 tablet 08/07/18 Hydrocortisone [Cortef] 20 mg PO AM 30 Days #30 tablet 08/07/18 Potassium Chloride 20 meq PO DAILY #30 tab.er.prt 08/07/18 Prednisone [Deltasone] See Taper PO DAILY 9 Days #9 tablet 08/07/18 Cephalexin Monohydrate [Keflex -] 500 mg PO BID 7 Days #14 capsule 02/18/19 Ibuprofen 800 mg PO Q8H PRN #20 tablet 02/18/19 Mupirocin Ointment [Bactroban 2% Ointment -] 1 applic TP BID #1 tube 02/18/19 Sulfamethoxazole/Trimethoprim [Bactrim Ds -] 1 tab PO BID #14 tablet 02/18/19 Abd/GI Specific PMHX - Complaint Specific PMHX Colitis: No Diverticulitis: No Gall Bladder Disease: No GERD: No Hepatitis: Yes Irritable Bowel Synd (IBS): No Pancreatitis: No GI Ulcer Disease: No Other History: duodenal perf <aNtalie Long - Last Filed: 05/03/19 23:47> Review of Systems - Review of Systems Able to Perform ROS?: Yes Is the patient limited Solomon Islander proficient: No Constitutional: Yes: Loss of Appetite, Weight Stable. No: Chills, Diaphoresis, Fever, Malaise, Weakness HEENTM: No: Recent change in vision, Nose Congestion, Throat Pain, Throat Swelling, Difficulty Swallowing Respiratory: No: Cough, Orthopnea, Shortness of Breath Cardiac (ROS): No: Chest Pain, Edema, Irregular Heart Rate, Lightheadedness, Palpitations, Syncope, Chest Tightness ABD/GI: Yes: Diarrhea, Nausea, Poor Appetite, Poor Fluid Intake, Vomiting. No: Abdominal Distended, Blood Streaked Bowels, Constipated, Difficulty Swallowing, Rectal Bleeding, Abdominal cramping, Tarry Stools : No: Burning, Dysuria, Frequency, Pain, Urgency Musculoskeletal: No: Back Pain, Joint Pain, Muscle Pain, Muscle Weakness Integumentary: No: Rash Neurological: No: Headache, Numbness, Weakness, Unsteady Gait, Dizziness Psychiatric: No: Sleep Pattern Change, Change in Appetite Endocrine: No: Increased Urine, Change in Weight Hematologic/Lymphatic: Yes: Anemia. No: Blood Clots, Easy Bleeding, Easy Bruising All Other Systems: Reviewed and Negative <Natalie Long - Last Filed: 05/03/19 23:47> *Physical Exam - Vital Signs Last Vital Signs Temp Pulse Resp BP Pulse Ox 114 H 20 126/79 100 05/03/19 19:09 05/03/19 19:09 05/03/19 19:09 05/03/19 19:09 - Physical Exam Comments: Pt tachycardic, pt hypothermic (97 rectal). Pt actively vomiting brown emesis on exam. Normal body habitus. Pt alert and oriented x3. survey worker generally intact, muscular strength and sensation intact. No midline spinal tenderness, step-offs, or crepitus. Head normocephalic, atraumatic. Eyes PERRLA, EOMI. Oropharynx without erythema or exudates, no LAD b/l. No nasal congestion, hearing intact. Clear heart sounds, S1/S2, no JVD, b/l pedal edema, or heart murmur. Clear lung sounds, no respiratory distress, wheezes, crackles, or accessory muscle use. Diffuse upper abdominal TTP, worst in epigastric area. Guarding to palpation, with no rebound. No CVA TTP. Abdomen soft, non-distended, and with normoactive bowel sounds. Skin without jaundice or rash. 05/03/19 22:01 <Natalie Long - Last Filed: 05/03/19 23:47> - Vital Signs Last Vital Signs Temp Pulse Resp BP Pulse Ox 97.5 F L 88 20 132/79 99 05/03/19 19:19 05/04/19 01:04 05/04/19 01:04 05/04/19 01:04 05/04/19 01:04 <Charles Stanley - Last Filed: 05/04/19 01:38> ED Treatment Course - LABORATORY CBC & Chemistry Diagram: 05/03/19 21:40 05/03/19 21:40 <Natalie Long - Last Filed: 05/03/19 23:47> - LABORATORY CBC & Chemistry Diagram: 05/03/19 21:40 05/03/19 21:40 - ADDITIONAL ORDERS Additional order review: Laboratory Results 05/03/19 05/03/19 21:40 21:40 Sodium 129 L Potassium 3.1 L Chloride 94 L Carbon Dioxide 20 L Anion Gap 16 BUN 68.2 H Creatinine 2.8 H Est GFR (CKD-EPI)AfAm 19.04 Est GFR (CKD-EPI)NonAf 16.43 Random Glucose 106 Lactic Acid 1.5 Calcium 9.3 Phosphorus 4.4 Magnesium 1.7 L Total Bilirubin 0.8 AST 24 ALT 13 Alkaline Phosphatase 113 Creatine Kinase 237 H Creatine Kinase Index 0.9 CK-MB (CK-2) 2.3 Troponin I 0.05 Total Protein 7.4 Albumin 4.1 Lipase 181 05/03/19 21:40 RBC 4.97 MCV 87.0 MCHC 34.1 RDW 15.3 MPV 7.6 Neutrophils % 70.7 Lymphocytes % 18.0 Monocytes % 10.6 H Eosinophils % 0.2 Basophils % 0.5 - RADIOLOGY Radiology Studies Ordered: Category Date Time Status ABDOMEN & PELVIS CT W/O CONTR [CT] Stat CT Scan 05/04/19 00:18 Taken - Medications Given in the ED: ED Medications Discontinued Medications Generic Name Dose Route Start Last Admin Trade Name Freq PRN Reason Stop Dose Admin Acetaminophen 1,000 mg 05/03/19 19:31 05/03/19 20:31 Ofirmev Injection - IVPB 05/03/19 19:32 1,000 mg ONCE ONE Administration Sodium Chloride 1,000 mls @ 1,000 mls/hr 05/03/19 19:31 05/03/19 20:48 Normal Saline - IV 05/03/19 20:30 Not Given ASDIR STA Potassium Chloride 10 meq in 100 mls @ 100 mls/hr 05/03/19 23:00 05/03/19 23: 47 Potassium Chloride 10 Meq Premix Ivpb - IVPB 05/04/19 00:59 Not Given Q60M ALFREDA Sodium Chloride 1,000 mls @ 1,000 mls/hr 05/03/19 23:30 05/04/19 00:24 Normal Saline - IV 05/04/19 00:29 Not Given ASDIR STA Lactated Ringer's 1,000 ml 05/03/19 20:09 05/03/19 20:31 Lactated Ringers Solution IV 05/03/19 20:10 1,000 ml ONCE STA Administration Lactated Ringer's 1,000 ml 05/04/19 00:15 05/04/19 00:23 Lactated Ringers Solution IV 05/04/19 00:16 1,000 ml ONCE STA Administration Morphine Sulfate 4 mg 05/03/19 21:09 05/03/19 22:00 Morphine Injection - IVPUSH 05/03/19 21:10 4 mg ONCE ONE Administration Morphine Sulfate 4 mg 05/03/19 23:39 05/03/19 23:53 Morphine Injection - IVPUSH 05/03/19 23:40 4 mg ONCE ONE Administration Ondansetron HCl 4 mg 05/03/19 19:31 05/03/19 19:58 Zofran Injection IVPUSH 05/03/19 19:32 Not Given ONCE ONE Ondansetron HCl 4 mg 05/03/19 19:56 05/03/19 20:08 Zofran Injection IM 05/03/19 19:57 4 mg ONCE STA Administration Ondansetron HCl 4 mg 05/03/19 20:56 05/03/19 20:31 Zofran Injection IVPUSH 05/03/19 20:57 4 mg ONCE ONE Administration Pantoprazole Sodium 40 mg 05/03/19 19:31 05/03/19 20:31 Protonix Iv IVPUSH 05/03/19 19:32 40 mg ONCE ONE Administration Potassium Chloride 40 meq 05/03/19 23:34 05/03/19 23:53 K-Dur - PO 05/03/19 23:35 Not Given ONCE ONE <Charles Stanley - Last Filed: 05/04/19 01:38> Medical Decision Making - Medical Decision Making Pt was seen at bedside, also will be seen by attending Dr. Stanley. Pt presenting with diffuse upper abdominal pain, presenting with emesis, and is tachycardic and hypothermic. Will proceed with sepsis w/u, chest x-ray and abdominal series to evaluate for free air/SBO, will likely need CT scan to evaluate for perforation, pancreatitis, colitis. Provided protonix, IV and IM zofran, 4 mg IV morphine, 1 L IV LR for improvement of pain control and hydration. Will continue to reassess pt and monitor for symptomatic improvement. ECG: Sinus tachycardia with PACs (HR 111, SD 122, QRS 78, QTc 489). No TWIs or significant ST segment changes. No significant changes from prior ECG. 05/03/19 22:03 Pt very [address] to [address] IV line due to dehydration. Was able to send some labs for evaluation via arterial stick. Pt taken for x-ray. PT improved after zofran and morphine. 05/03/19 22:06 CBC WNL; H/H stable CMP: Na 129, K 3.1, Cl 94, BUN/Cr 68/2.8 -- providing IVF and KCl IV riders Trop .05 Abdominal x-rays showed abnormal gas pattern -- will obtain CT abd/pelvis with PO contrast 05/03/19 22:57 Pt drinking PO contrast now. Will obtain CT ~1:00am. 05/03/19 23:18 Pt requesting additional pain medication -- providing 4 mg IV morphine (8 mg total) Pt endorsed to night team 05/03/19 23:47 <Natalie Long - Last Filed: 05/03/19 23:47> *DC/Admit/Observation/Transfer <Natalie Long - Last Filed: 05/03/19 23:47> - Discharge Dispostion Decision to Admit order: Yes <Charles Stanley - Last Filed: 05/04/19 01:38> Diagnosis at time of Disposition: YOLANDA (acute kidney injury), Hypokalemia, Hyponatremia, Hypomagnesemia Abdominal pain Qualifiers: Abdominal location: upper abdomen, unspecified Qualified Code(s): R10.10 - Upper abdominal pain, unspecified Nausea and vomiting Qualifiers: Vomiting type: unspecified Vomiting Intractability: non-intractable Qualified Code(s): R11.2 - Nausea with vomiting, unspecified - Discharge Dispostion Condition at time of disposition: Fair - Referrals Referrals: Kaci Alvarez MD [Primary Care Provider] -
[2019-05-03] MEDS ORDERED: ONDANSETRON 4 MG/2 ML VIAL IVPUSH ONE ×2 (19:31→20:56)
[2019-05-03] MEDS ORDERED: ACETAMINOPHEN 1000 MG/100 ML VIAL (NON FORMULARY) IVPB ONE (19:31)
[2019-05-03] MEDS ORDERED: SODIUM CHLORIDE 1,000 ML IV STA ×2 (19:31→23:30)
[2019-05-03] MEDS ORDERED: PANTOPRAZOLE SODIUM 40 MG VIAL IVPUSH ONE (19:31)
[2019-05-03] MEDS ORDERED: ONDANSETRON 4 MG/2 ML VIAL ONE ×3 (19:37→20:58)
[2019-05-03] MEDS ORDERED: ACETAMINOPHEN INJECTION 100 ML IVPB ONE (19:37)
[2019-05-03] MEDS ORDERED: PANTOPRAZOLE SODIUM 40 MG/100 ML BAG IVPB ONE (19:37)
[2019-05-03] MEDS ORDERED: ONDANSETRON 4 MG/2 ML VIAL IM STA (19:56)
[2019-05-03] MEDS ORDERED: LACTATED RINGERS SOLUTION 1000 ML INFUS.BAG IV STA (20:09)
[2019-05-03] MEDS ORDERED: morphine CARPU-JECT 4 MG/1 ML DISP.SYRIN IVPUSH ONE ×2 (21:09→23:39)
[2019-05-03] MEDS ORDERED: morphine SULFATE 4 MG/ML VIAL ONE ×2 (21:25→23:48)
[2019-05-03] MEDS ORDERED: LIDOCAINE 1%/EPI 1:100000 (20 ML MULTI DOSE VIAL) ONE (21:28)
--- NOTE | 2019-05-03 21:57 | PDOC ---
Attending Attestation - Resident Resident Name: MercedesNatalie - ED Attending Attestation I have performed the following: I have examined & evaluated the patient, The case was reviewed & discussed with the resident, I agree w/resident's findings & plan, Exceptions are as noted - HPI HPI: 05/03/19 21:54 69 y/o female with multiple previous abd surgeries c/o persisant nausea and numerous episodes of non-bloody, non-bilious vomiting for 5 days - Physicial Exam PE: 05/03/19 21:54 pt is awake, alert, wel nourished, actively vomiting, in moderate distress nc, atr perrla, eomi, no sclreal icterus mm-dry cta rrr, tachycardic abd-soft, nd, + diffuse epigastric and luq tp wtih volunt guarding, no rebound, bs-nl - Medical Decision Making 05/03/19 21:56 69 y/o female with multiple previous surgeries, hypertension, peptic ulcer disease, presents with severe epigastric and left upper quadrant pain and persistent nausea with nonbloody nonbilious vomiting 5 days. Patient's tachycardic and hypertensive. Mucous membranes are dry. There is no evidence of scleral icterus. Differential diagnoses includes perforated viscus versus pancreatitis versus SBO versus ileus. Chest x-ray reveals no evidence of free air under the diaphragm. Will hydrate, we'll administer H2 blockers and antiemetics. Will obtain abdominal series x-ray to rule out SBO. Will consider CT. 05/04/19 00:19 patient with continuous pain requiring IV narcotics. Will obtain CT with by mouth contrast. Patient also noted to have achy I with elevated BUN/creatinine likely prerenal in nature. Will continue resuscitating with LR. 05/04/19 01:34 ct abd-pelvis shows no evidence of acute surgical pathology. cbd is dialated to 1.2cm. thickened gastric mucosa is noted. no biliary or renal pathology identified. pts K is noted to be 3.1 with Mg-1.7 currently replenishing both iv and po. will admit.
[2019-05-03 22:19] LABS: BASO % 0.5 % (0-2.0); EOS % 0.2 % (0-4.5); HEMATOCRIT 43.3 % (32.4-45.2); HEMOGLOBIN 14.8 GM/dL (10.7-15.3); MCH 29.7 pg (25.7-33.7); MCHC 34.1 g/dl (32.0-36.0); MEAN PLT VOLUME 7.6 fl (7.5-11.1); MONO % 10.6 % (3.8-10.2); NEUT % 70.7 % (42.8-82.8); PLATELET COUNT 350 K/MM3 (134-434); RBC 4.97 M/mm3 (3.60-5.2); RDW 15.3 % (11.6-15.6); WHITE BLOOD COUNT 9.2 K/mm3 (4.0-10.0)
[2019-05-03 22:31] LABS: ALBUMIN 4.1 g/dl (3.4-5.0); BILIRUBIN,TOTAL 0.8 mg/dL (0.2-1); BLOOD UREA NITROGEN 68.2 mg/dL (7-18); CALCIUM 9.3 mg/dL (8.5-10.1); CREATININE 2.8 mg/dL (0.55-1.3); POTASSIUM 3.1 mmol/L (3.5-5.1); TOT PROT 7.4 g/dl (6.4-8.2)
[2019-05-03] MEDS ORDERED: KCL 10 MEQ IVPB 10 MEQ/100 ML INFUS.BAG IVPB SCH (23:00)
[2019-05-03] MEDS ORDERED: KCL 10 MEQ IVPB 10 MEQ/100 ML INFUS.BAG IVPB ONE (23:31)
[2019-05-03] MEDS ORDERED: POTASSIUM CHLORIDE TABS 20 MEQ TABLET.ER (FP) PO ONE ×2 (23:34→23:48)
[2019-05-03] MEDS ORDERED: POTASSIUM CHLORIDE ORAL LIQUID 20 MEQ/15 ML ONE (23:54)
[2019-05-04] MEDS ORDERED: LACTATED RINGERS SOLUTION 1000 ML INFUS.BAG IV STA (00:15)
--- NOTE | 2019-05-04 00:24 | PDOC ---
*Physical Exam - Vital Signs Last Vital Signs Temp Pulse Resp BP Pulse Ox 97.5 F L 114 H 20 126/79 100 05/03/19 19:19 05/03/19 19:09 05/03/19 19:09 05/03/19 19:09 05/03/19 19:09 ED Treatment Course - LABORATORY CBC & Chemistry Diagram: 05/03/19 21:40 05/03/19 21:40 - ADDITIONAL ORDERS Additional order review: Laboratory Results 05/03/19 05/03/19 21:40 21:40 Sodium 129 L Potassium 3.1 L Chloride 94 L Carbon Dioxide 20 L Anion Gap 16 BUN 68.2 H Creatinine 2.8 H Est GFR (CKD-EPI)AfAm 19.04 Est GFR (CKD-EPI)NonAf 16.43 Random Glucose 106 Lactic Acid 1.5 Calcium 9.3 Total Bilirubin 0.8 AST 24 ALT 13 Alkaline Phosphatase 113 Creatine Kinase 237 H Creatine Kinase Index 0.9 CK-MB (CK-2) 2.3 Troponin I 0.05 Total Protein 7.4 Albumin 4.1 Lipase 181 05/03/19 21:40 RBC 4.97 MCV 87.0 MCHC 34.1 RDW 15.3 MPV 7.6 Neutrophils % 70.7 Lymphocytes % 18.0 Monocytes % 10.6 H Eosinophils % 0.2 Basophils % 0.5 - Medications Given in the ED: ED Medications Discontinued Medications Generic Name Dose Route Start Last Admin Trade Name Kristen PRN Reason Stop Dose Admin Acetaminophen 1,000 mg 05/03/19 19:31 05/03/19 20:31 Ofirmev Injection - IVPB 05/03/19 19:32 1,000 mg ONCE ONE Administration Sodium Chloride 1,000 mls @ 1,000 mls/hr 05/03/19 19:31 05/03/19 20:48 Normal Saline - IV 05/03/19 20:30 Not Given ASDIR STA Potassium Chloride 10 meq in 100 mls @ 100 mls/hr 05/03/19 23:00 05/03/19 23: 47 Potassium Chloride 10 Meq Premix Ivpb - IVPB 05/04/19 00:59 Not Given Q60M ALFREDA Lactated Ringer's 1,000 ml 05/03/19 20:09 05/03/19 20:31 Lactated Ringers Solution IV 05/03/19 20:10 1,000 ml ONCE STA Administration Morphine Sulfate 4 mg 05/03/19 21:09 05/03/19 22:00 Morphine Injection - IVPUSH 05/03/19 21:10 4 mg ONCE ONE Administration Morphine Sulfate 4 mg 05/03/19 23:39 05/03/19 23:53 Morphine Injection - IVPUSH 05/03/19 23:40 4 mg ONCE ONE Administration Ondansetron HCl 4 mg 05/03/19 19:31 05/03/19 19:58 Zofran Injection IVPUSH 05/03/19 19:32 Not Given ONCE ONE Ondansetron HCl 4 mg 05/03/19 19:56 05/03/19 20:08 Zofran Injection IM 05/03/19 19:57 4 mg ONCE STA Administration Ondansetron HCl 4 mg 05/03/19 20:56 05/03/19 20:31 Zofran Injection IVPUSH 05/03/19 20:57 4 mg ONCE ONE Administration Pantoprazole Sodium 40 mg 05/03/19 19:31 05/03/19 20:31 Protonix Iv IVPUSH 05/03/19 19:32 40 mg ONCE ONE Administration Potassium Chloride 40 meq 05/03/19 23:34 05/03/19 23:53 K-Dur - PO 05/03/19 23:35 Not Given ONCE ONE Medical Decision Making - Medical Decision Making Pt signed out to me by Dr. Long. 69 year old female with PMH duodenal ulcer, duodenal perfoation, GIB, esophageal hernia repair, HCV, COPD, who is presenting with diffuse upper abdominal pain x5 days, associated with persistent nausea/vomiting, loose stools 4-5 days ago. Pt admitted to decreased PO intake. Initial Vital Signs Pulse Resp BP Pulse Ox 114 H 20 126/79 100 05/03/19 19:09 05/03/19 19:09 05/03/19 19:09 05/03/19 19:09 Tachycardic. No tachypnea. No hypotension. No hypoxia on room air. EKG performed at 1936: rate 111, regular rhythm, normal axis, normal intervals, no acute ST changes. CBC WBC 9.2 K/mm3 (4.0-10.0) 05/03/19 21:40 RBC 4.97 M/mm3 (3.60-5.2) 05/03/19 21:40 Hgb 14.8 GM/dL (10.7-15.3) 05/03/19 21:40 Hct 43.3 % (32.4-45.2) D 05/03/19 21:40 MCV 87.0 fl (80-96) 05/03/19 21:40 MCH 29.7 pg (25.7-33.7) 05/03/19 21:40 MCHC 34.1 g/dl (32.0-36.0) 05/03/19 21:40 RDW 15.3 % (11.6-15.6) 05/03/19 21:40 Plt Count 350 K/MM3 (134-434) D 05/03/19 21:40 MPV 7.6 fl (7.5-11.1) 05/03/19 21:40 Absolute Neuts (auto) 6.5 K/mm3 (1.5-8.0) 05/03/19 21:40 Neutrophils % 70.7 % (42.8-82.8) 05/03/19 21:40 Lymphocytes % 18.0 % (8-40) 05/03/19 21:40 Monocytes % 10.6 % (3.8-10.2) H 05/03/19 21:40 Eosinophils % 0.2 % (0-4.5) 05/03/19 21:40 Basophils % 0.5 % (0-2.0) 05/03/19 21:40 Nucleated RBC % 0 % (0-0) 05/03/19 21:40 No leukocytosis. No anemia. CMP Sodium 129 mmol/L (136-145) L 05/03/19 21:40 Potassium 3.1 mmol/L (3.5-5.1) L 05/03/19 21:40 Chloride 94 mmol/L (98-107) L 05/03/19 21:40 Carbon Dioxide 20 mmol/L (21-32) L 05/03/19 21:40 Anion Gap 16 MMOL/L (8-16) 05/03/19 21:40 BUN 68.2 mg/dL (7-18) H 05/03/19 21:40 Creatinine 2.8 mg/dL (0.55-1.3) H 05/03/19 21:40 Est GFR (CKD-EPI)AfAm 19.04 05/03/19 21:40 Est GFR (CKD-EPI)NonAf 16.43 05/03/19 21:40 Random Glucose 106 mg/dL (74-106) 05/03/19 21:40 Lactic Acid 1.5 mmol/L (0.4-2.0) 05/03/19 21:40 Calcium 9.3 mg/dL (8.5-10.1) 05/03/19 21:40 Total Bilirubin 0.8 mg/dL (0.2-1) 05/03/19 21:40 AST 24 U/L (15-37) 05/03/19 21:40 ALT 13 U/L (13-61) 05/03/19 21:40 Alkaline Phosphatase 113 U/L (45-117) 05/03/19 21:40 Creatine Kinase 237 U/L (26-192) H 05/03/19 21:40 Creatine Kinase Index 0.9 % (0.0-5.0) 05/03/19 21:40 CK-MB (CK-2) 2.3 ng/mL (0.5-3.6) 05/03/19 21:40 Troponin I 0.05 ng/ml (0.00-0.05) 05/03/19 21:40 Total Protein 7.4 g/dl (6.4-8.2) 05/03/19 21:40 Albumin 4.1 g/dl (3.4-5.0) 05/03/19 21:40 Lipase 181 U/L (73-393) 05/03/19 21:40 Hyonatremia Hypokalemia YOLANDA IVF running Medications ordered: KCL 40 mEq IV x2, KCL 40 mEq PO once Lab called to add on magnesium. Pending CT abdomen/pelvis. 05/04/19 01:24 CT reported no acute pathology, no SBO. Magnesium low Medications ordered: Magnesium 2g IV ocne Pt to be admitted for N/V causing YOLANDA/hyponatremia/hypokalemia/hypomagnesium 05/04/19 01:51 Dr. Stanley spoke with admitting team. Pending admission. *DC/Admit/Observation/Transfer Diagnosis at time of Disposition: YOLANDA (acute kidney injury), Hypokalemia, Hyponatremia, Hypomagnesemia Abdominal pain Qualifiers: Abdominal location: upper abdomen, unspecified Qualified Code(s): R10.10 - Upper abdominal pain, unspecified Nausea and vomiting Qualifiers: Vomiting type: unspecified Vomiting Intractability: non-intractable Qualified Code(s): R11.2 - Nausea with vomiting, unspecified - Discharge Dispostion Condition at time of disposition: Fair Decision to Admit order: Yes - Referrals - Patient Instructions - Post Discharge Activity
[2019-05-04] MEDS ORDERED: KCL 10 MEQ IVPB 10 MEQ/100 ML INFUS.BAG IVPB ONE (01:00)
[2019-05-04 01:13] LABS: MAGNESIUM 1.7 mg/dL (1.8-2.4); PHOSPHOROUS 4.4 mg/dL (2.5-4.9)
[2019-05-04] MEDS ORDERED: MAGNESIUM SULF 50% (8.12 MEQ/2 ML-1 GM VIAL) IVPB ONE (01:21)
[2019-05-04] MEDS ORDERED: FOLIC ACID INJECTION - 1 MG, THIAMINE HCL 100 MG, MULTIVIT INJECTION ADULT 10 ML in SOD... IVPB ONE (01:31)
[2019-05-04] MEDS ORDERED: MAGNESIUM SULF 50% (8.12 MEQ/2 ML-1 GM VIAL) ONE (01:44)
--- NOTE | 2019-05-04 04:05 | HP ---
CHIEF COMPLAINT: Abdominal Pain, nausea and vomiting PCP: Dr. Kaci Alvarez HISTORY OF PRESENT ILLNESS: Pt. is a 69 y.o. F w/ PMHx. of Adrenal insufficiency , GI bleed, Hep C(untreated?), COPD, MVP, and ROSANA presents with abdominal pain for 4 days. Pt. states that the day before the pain (most prominent in epigastrium and RUQ) started she was having NBNB emesis. Pt. states that she felt something rip in the RUQ. Over the course of the 5 days Pt. vomited up to 20 times per day. The emesis was brown. Pt. also had loose BMs for 2 days when the nausea started and then has not had a BM since and has not passed gas since. On the day the symptoms started the Pt. endorses eating a wedge of bread that she never ate before. Other family members had the same bread and did not become sick. Pt. denies any other changes in food before the events started. Of note Pt. has had multiple episodes of nausea and vomiting in the past. Pt.'s last hospitalization had a similar presentation of adrenal insufficiency, hypokalemia, hyponatremia, hypomagnesimia associated with nausea and vomiting. Pt. was started on hydrocortisone at that time. Pt. states her Hydrocortisone was increased to 20mg from 10 mg in the AM around November/December. Pt. endorses dizziness, lightheadedness, and weakness that is exacerbated by standing. Pt. denies any fever or chills. ER course was notable for: (1)CBC, CMP, CXR (2)CTAP (3)Morphine, Zofran, Tylenol, Protonix, IVF, KCl Recent Travel: No PAST MEDICAL HISTORY: As per HPI PAST SURGICAL HISTORY: As per HPI Social History: Smoking: Quit 7 7 years ago, relapsed and then quit again 3 years ago Alcohol: Denies Drugs: Marijuana about 1/ 2 months Allergies No Known Drug Allergies Allergy (Verified 05/03/19 19:11) tape Adverse Reaction (Uncoded 05/03/19 19:11) HOME MEDICATIONS: Home Medications Medication Instructions Recorded Metoprolol Succinate [Toprol XL -] 25 mg PO BID 01/09/17 Docusate Sodium [Colace -] 200 mg PO BID 08/01/18 Escitalopram Oxalate [Lexapro -] 20 mg PO DAILY 08/01/18 LORazepam [Ativan] 1 mg PO TID PRN MDD 2mg 08/01/18 Ondansetron HCl [Zofran] 4 mg PO Q6H PRN 08/01/18 Pantoprazole Sodium [Protonix -] 40 mg PO DAILY 08/01/18 Polyethylene Glycol 3350 [Miralax 17 gm PO DAILY PRN 08/01/18 119 gm Btl -] Zolpidem Tartrate [Ambien] 10 mg PO HS PRN MDD 5mg 08/01/18 Oxycodone HCl 10 mg PO Q6H 08/02/18 Amox-Tr/K Cl [Augmentin - 875Mg 1 tab PO BID #10 tablet 08/07/18 Tablet] Guaifenesin [Mucinex] 600 mg PO Q12H #20 tab.er.12h 08/07/18 Hydrocortisone [Cortef] 10 mg PO DAILY #30 tablet 08/07/18 Hydrocortisone [Cortef] 20 mg PO AM 30 Days #30 tablet 08/07/18 Potassium Chloride 20 meq PO DAILY #30 tab.er.prt 08/07/18 Prednisone [Deltasone] See Taper PO DAILY 9 Days #9 tablet 08/07/18 Cephalexin Monohydrate [Keflex -] 500 mg PO BID 7 Days #14 capsule 02/18/19 Ibuprofen 800 mg PO Q8H PRN #20 tablet 02/18/19 Mupirocin Ointment [Bactroban 2% 1 applic TP BID #1 tube 02/18/19 Ointment -] Sulfamethoxazole/Trimethoprim 1 tab PO BID #14 tablet 02/18/19 [Bactrim Ds -] REVIEW OF SYSTEMS As per HPI PHYSICAL EXAMINATION Vital Signs - 24 hr 05/03/19 05/03/19 05/04/19 19:09 19:19 01:04 Temperature 97.5 F L Pulse Rate 114 H Pulse Rate [ 88 Left Apical] Respiratory 20 20 Rate Blood Pressure 126/79 Blood Pressure 132/79 [Right Arm] O2 Sat by Pulse 100 99 Oximetry (%) 05/04/19 03:23 Temperature Pulse Rate Pulse Rate [ 82 Left Apical] Respiratory 19 Rate Blood Pressure Blood Pressure 142/83 [Right Arm] O2 Sat by Pulse 99 Oximetry (%) GENERAL: Awake, alert, and fully oriented, in no acute distress. HEAD: Normal with no signs of trauma. EYES: Pupils equal, round and reactive to light, extraocular movements intact, sclera anicteric, conjunctiva clear. No lid lag. EARS, NOSE, THROAT: Ears normal, nares patent, oropharynx clear without exudates. Moist mucous membranes. NECK: Normal range of motion, supple without lymphadenopathy, JVD, or masses. LUNGS: Breath sounds equal, clear to auscultation bilaterally. No wheezes, and no crackles. No accessory muscle use. HEART: Regular rate and rhythm, normal S1 and S2 without murmur, rub or gallop. ABDOMEN: Soft, nontender, not distended, normoactive bowel sounds, no guarding, no rebound, no masses. No hepatomegaly or splenomegaly. MUSCULOSKELETAL: Normal range of motion at all joints. No bony deformities or tenderness. No CVA tenderness. UPPER EXTREMITIES: 2+ pulses, warm, well-perfused. No cyanosis. No clubbing. No peripheral edema. LOWER EXTREMITIES: 2+ pulses, warm, well-perfused. No calf tenderness. No peripheral edema. NEUROLOGICAL: Cranial nerves II-XII intact. Normal speech. Normal gait. PSYCHIATRIC: Cooperative. Good eye contact. Appropriate mood and affect. SKIN: Warm, dry, normal turgor, no rashes or lesions noted, normal capillary refill. Laboratory Results - last 24 hr 05/03/19 05/03/19 05/03/19 21:40 21:40 21:40 WBC 9.2 RBC 4.97 Hgb 14.8 Hct 43.3 D MCV 87.0 MCH 29.7 MCHC 34.1 RDW 15.3 Plt Count 350 D MPV 7.6 Absolute Neuts (auto) 6.5 Neutrophils % 70.7 Lymphocytes % 18.0 Monocytes % 10.6 H Eosinophils % 0.2 Basophils % 0.5 Nucleated RBC % 0 Sodium 129 L Potassium 3.1 L Chloride 94 L Carbon Dioxide 20 L Anion Gap 16 BUN 68.2 H Creatinine 2.8 H Est GFR (CKD-EPI)AfAm 19.04 Est GFR (CKD-EPI)NonAf 16.43 Random Glucose 106 Lactic Acid 1.5 Calcium 9.3 Phosphorus 4.4 Magnesium 1.7 L Total Bilirubin 0.8 AST 24 ALT 13 Alkaline Phosphatase 113 Creatine Kinase 237 H Creatine Kinase Index 0.9 CK-MB (CK-2) 2.3 Troponin I 0.05 Total Protein 7.4 Albumin 4.1 Lipase 181 Blood Type Antibody Screen 05/04/19 01:10 WBC RBC Hgb Hct MCV MCH MCHC RDW Plt Count MPV Absolute Neuts (auto) Neutrophils % Lymphocytes % Monocytes % Eosinophils % Basophils % Nucleated RBC % Sodium Potassium Chloride Carbon Dioxide Anion Gap BUN Creatinine Est GFR (CKD-EPI)AfAm Est GFR (CKD-EPI)NonAf Random Glucose Lactic Acid Calcium Phosphorus Magnesium Total Bilirubin AST ALT Alkaline Phosphatase Creatine Kinase Creatine Kinase Index CK-MB (CK-2) Troponin I Total Protein Albumin Lipase Blood Type O POSITIVE Antibody Screen Negative ASSESSMENT/PLAN: ATTENDING PHYSICIAN STATEMENT I saw and evaluated the patient. I reviewed the resident's note and discussed the case with the resident. I agree with the resident's findings and plan as documented. SUBJECTIVE: OBJECTIVE: ASSESSMENT AND PLAN:
--- NOTE | 2019-05-04 04:23 | PN ---
Teaching Attending Note Name of Resident: Coleman Avalos ATTENDING PHYSICIAN STATEMENT I saw and evaluated the patient. Chart, data, imaging reviewed I reviewed the resident's note and discussed the case with the resident. I agree with the resident's findings and plan as documented. SUBJECTIVE: 68 year woman with chronic anemia, GI bleeds, extensive large hiatal hernia repair, s/p duodenal perf., adrenal insufficiency, Hepatitis C s/p treatment, asthma, COPD, anxiety, osteoarthritis, and mitral valve prolapse, presents with multiple episodes of vomiting for the last 5 days, vomits brownish to clear material, denied presence of blood. Noted to have recurrent episodes of vomiting. OBJECTIVE: Last Vital Signs Temp Pulse Resp BP Pulse Ox 97.5 F L 82 19 142/83 99 05/03/19 19:19 05/04/19 03:23 05/04/19 03:23 05/04/19 03:23 05/04/19 03:23 general- nad, aaox3 heent -at, nc, moist mucous membranes neck supple cv -s1+s2+rrr chest clear abdomen -soft, epigastric tenderness to palpation ext - no pedal edema Abnormal Lab Results 05/03/19 05/03/19 21:40 21:40 Monocytes % 10.6 H Sodium 129 L Potassium 3.1 L Chloride 94 L Carbon Dioxide 20 L BUN 68.2 H Creatinine 2.8 H Magnesium 1.7 L Creatine Kinase [address] noted for enlarged pancreatic head, dilated cbd ASSESSMENT AND PLAN: #nausea, intractable vomiting - may be secondary to possible cholecystitis, as cbd dilated, epigastric pain present. Should r/o uncontrolled adrenal insufficiency. Electrolyte disturbances including hypochloremia, hyponatremia, hypokalemia, hypomag likely secondary to vomiting. -med/surg -IV fluid hydration NS with KCL -replace mg -repeat chemistry and mg -zofran prn if nausea/vomit -surgery eval for CBD dilatation and possible cholecystectomy as well as pancreatic head enlargement #Epigastric pain could be secondary to vomiting, gastritis vs cholecystitis. No free intraperitoneal free air noted. Troponin was wnl -empiric tx with protonix 40mg IV -pain control with morphine IV prn #Adrenal insufficiency - possible uncontrolled -c/w with home dose hydrocortisone for now 20mg po am, 10mg po pm dosing - endocrine eval for possible hydrcortisone dose adjustment #dvt ppx heparin sc
[2019-05-04] MEDS: SODIUM CHLORIDE 1,000 ML with POTASSIUM CHLORIDE 40 MEQ IVPB SCH ×2 (04:45→06:30)
[2019-05-04] MEDS: morphine SULFATE 4 MG/ML VIAL IVPUSH PRN (06:37)
[2019-05-04] MEDS ORDERED: HYDROCORTISONE 20 MG TABLET PO SCH (07:00)
[2019-05-04] MEDS ORDERED: HYDROCORTISONE SOD SUCCINATE 100 MG/2 ML VIAL IVPUSH ONE (08:18)
--- NOTE | 2019-05-04 08:26 | PN ---
Progress Note (short form) - Note Progress Note: Thoracic: CT reviewed. No obstruction. No evidence of recurrence. Has had multiple surgeries in abdomen but no obvious obstruction on CT. Pt can f/u in clinic. She has not followed up despite multiple attempts in 2 years.
[2019-05-04] MEDS ORDERED: PT OWN MED DRAWER 7, Y5N ONE (09:15)
[2019-05-04 09:52] LABS: HEMATOCRIT 41.2 % (32.4-45.2); MEAN CELL VOLUME 88.4 fl (80-96); MEAN PLT VOLUME 7.3 fl (7.5-11.1); PLATELET COUNT 319 K/MM3 (134-434); RBC 4.66 M/mm3 (3.60-5.2); RDW 15.4 % (11.6-15.6); WHITE BLOOD COUNT 8.3 K/mm3 (4.0-10.0)
[2019-05-04] MEDS ORDERED: PANTOPRAZOLE SODIUM 40 MG VIAL IVPUSH SCH (10:00)
[2019-05-04] MEDS ORDERED: HEPARIN NA (PORCINE) 5,000 UNITS/ML 1ML VIAL SQ SCH (10:00)
[2019-05-04] MEDS ORDERED: ESCITALOPRAM OXALATE 10 MG TABLET (FP) PO SCH (10:15)
[2019-05-04] MEDS ORDERED: PROCHLORPERAZINE INJECTION 10 MG/2 ML VIAL IVPB PRN (10:19)
--- NOTE | 2019-05-04 10:20 | PN ---
Progress Note (short form) - Note Progress Note: Subjective: no fever or chills. feels alittle better . stillhas upper abd pain in R and L but maily in L side. no hematemesis or hematochezia or melena. n o UOP in 2 days per her. no sick contact . has not been able to hold her hydrocortisone down since Sunday Objective: Vital Signs: Last Vital Signs Temp Pulse Resp BP Pulse Ox 97.6 F 92 H 18 147/90 95 05/04/19 04:29 05/04/19 04:29 05/04/19 05:32 05/04/19 04:29 05/04/19 05:32 Laboratory Results - last 24 hr 05/03/19 05/03/19 05/03/19 21:40 21:40 21:40 WBC 9.2 RBC 4.97 Hgb 14.8 Hct 43.3 D MCV 87.0 MCH 29.7 MCHC 34.1 RDW 15.3 Plt Count 350 D MPV 7.6 Absolute Neuts (auto) 6.5 Neutrophils % 70.7 Lymphocytes % 18.0 Monocytes % 10.6 H Eosinophils % 0.2 Basophils % 0.5 Nucleated RBC % 0 Sodium 129 L Potassium 3.1 L Chloride 94 L Carbon Dioxide 20 L Anion Gap 16 BUN 68.2 H Creatinine 2.8 H Est GFR (CKD-EPI)AfAm 19.04 Est GFR (CKD-EPI)NonAf 16.43 Random Glucose 106 Lactic Acid 1.5 Calcium 9.3 Phosphorus 4.4 Magnesium 1.7 L Total Bilirubin 0.8 AST 24 ALT 13 Alkaline Phosphatase 113 Creatine Kinase 237 H Creatine Kinase Index 0.9 CK-MB (CK-2) 2.3 Troponin I 0.05 Total Protein 7.4 Albumin 4.1 Lipase 181 Blood Type Antibody Screen 05/04/19 05/04/19 01:10 09:15 WBC 8.3 RBC 4.66 Hgb 14.0 Hct 41.2 MCV 88.4 MCH 30.0 MCHC 34.0 RDW 15.4 Plt Count 319 MPV 7.3 L Absolute Neuts (auto) Neutrophils % Lymphocytes % Monocytes % Eosinophils % Basophils % Nucleated RBC % Sodium Potassium Chloride Carbon Dioxide Anion Gap BUN Creatinine Est GFR (CKD-EPI)AfAm Est GFR (CKD-EPI)NonAf Random Glucose Lactic Acid Calcium Phosphorus Magnesium Total Bilirubin AST ALT Alkaline Phosphatase Creatine Kinase Creatine Kinase Index CK-MB (CK-2) Troponin I Total Protein Albumin Lipase Blood Type O POSITIVE Antibody Screen Negative Physical Exam: NAD , awake, alert., pleasant, dry MM, no JVD CV: RRR, no MRG Lungs; CTAB ext : no edema or erythema or hyperpigmentation . R leg is shorter than L . No fungal infection among toes Abd: soft, ND, TTP in epigastric area and LUQ,. and to a minimal extent RUQ. neg Watt's with no rebound tenderness . NL BS . Imaging: CT report and cxray reviewed. Assessment/Plan: 69 y/o lady with h/o adrenal insufficiency, b/l TKR, septic joint, hiatal hernia , anxiety,, insomnia, anemia, GI bleed, Treated Hep C, asthma, duodenal perforation , MVP, OA , and chronic pain, who presented with N/V and abd pain 1- N/V/Abd pain, suspect viral gastroenteritis VS gastritis. doubt adrenal crisis due to Nl BP, low K, tachycardia, and other findings. But for sure she is at risk of having adrenal crisis if she cont not to tolerate her hydrocortisone . Abd pain could be due to above process. Initial CT with prelim read showed CBD of 1.2 cm , but final read reports it is prominant. No significant tenderness in RUQ and nL LFTS , doubt biliary process. the main tendernessis in RUQ, possibly gastritis. - will cont PPI IV - start IVF - monitor electrolytes ( pending ) - MRCP , - start liquid diet and see if she tolerates - Dr. Maurer d/w RN , regarding no need for any intervention or inpatient evaluation - QTC 487, avoid zofran and give compazine 2- YOLANDA : likely due to prerenal azotemia. CT with no hydro - cont IVF 3- H/o Adrenal insufficiency. doubt crisis but at risk - - hold po hydrocortisone - start IV hydro , give 100 mg now then 50 q6 h - endocrine consult pending 4- hyponatremia, hypokalemia, hypomagnesemia. repeat labs are pending. will follow 5- start DVT px Visit type - Emergency Visit Emergency Visit: Yes ED Registration Date: 05/04/19 Care time: The patient presented to the Emergency Department on the above date and was hospitalized for further evaluation of their emergent condition. - New Patient This patient is new to me today: Yes Date on this admission: 05/04/19 - Critical Care Critical Care patient: No
[2019-05-04 10:28] LABS: ALBUMIN 3.9 g/dl (3.4-5.0); BILIRUBIN,TOTAL 0.7 mg/dL (0.2-1); BLOOD UREA NITROGEN 57.5 mg/dL (7-18); CALCIUM 9.3 mg/dL (8.5-10.1); CREATININE 2.1 mg/dL (0.55-1.3); PHOSPHOROUS 5.1 mg/dL (2.5-4.9); POTASSIUM 3.9 mmol/L (3.5-5.1); TOT PROT 7.1 g/dl (6.4-8.2)
[2019-05-04] MEDS: oxyCODONE HCL 5 MG TABLET PO PRN ×2 (10:29→19:01)
[2019-05-04 11:06] LABS: EPI CELLS 11.3 /HPF (0-5/HPF); HYALINE CASTS 52 /lpf (0-8); URINE APPEARANCE CLOUDY; URINE BACTERIA 128.4 /hpf (NEGATIVE); URINE BILIRUBIN NEGATIVE (NEGATIVE); URINE COLOR YELLOW; URINE GLUCOSE (UA) NEGATIVE (NEGATIVE); URINE KETONE NEGATIVE (NEGATIVE); URINE LEUK ESTERASE 2+ (NEGATIVE); URINE NITRITE NEGATIVE (NEGATIVE); URINE PROTEIN 2+ (NEGATIVE); URINE UROBILINOGEN 0.2 mg/dL (0.2-1.0); URINE WBC 62 /hpf (0-5)
[2019-05-04 12:03] LABS: URINE RBC 4.3 /hpf (0-4)
--- NOTE | 2019-05-04 12:49 | CONSULT ---
Consult Consult Specialty:: Endocrinology Referred by:: Dr Avalos Reason for Consultation:: Adrenal Insufficiency - History of Present Illness Chief Complaint: Nausea, vomiting for 5 days History of Present Illness: This is a 69 yo F, with h/o anemia, GI bleed, esophageal hernia repair, duodenal perforation, Hep C, and COPD, Adrenal Insufficiency on Hydrocortisone 20mg in the morning as 10mg in the afternoon presented with c/O diffuse upper abdominal pain x5 days, associated with persistent nausea and vomiting. Pt states the pain is sharp and constant, worse with moving. Pt states she had loose stools 4-5 days ago, but has not had any BMs and has had decreased urination since her PO intake has decreased. Pt was having normal BMs prior to that point. Pt has not been able to tolerate any PO intake over the past few days, and has been vomiting throughout the day. Pt denies any fevers, headache, vision changes, syncope, chest pain, palpitations, SOB, urinary symptoms, or leg swelling. Denies eating out or being in contact with any sick person recently. Pt referred for evaluation of Adrenal Insufficieny as pt unable to tolerate oral meds. - History Source History Provided By: Patient, Medical Record - Past Medical History [employer]: Yes: Other (anxiety) Cardio/Vascular: Yes: HTN Pulmonary: Yes: COPD Gastrointestinal: Yes: Hiatal Hernia (Large paraesophageal hernia s/p repair ), Peptic Ulcer Disease (s/p surgical repair) Hepatobiliary: Yes: Hepatitis C (untreated) ...: No Infectious Disease: Yes: MRSA, Other ( ? osteomyelitis) Endocrine: Yes: Other (adrenal insufficiency) - Past Surgical History Past Surgical History: Yes: Hysterectomy, Joint Replacement (Ttl Knee replacement x 2 right knee with 2 right knee revisions, Ttl Left knee replacement. MRSA infection) - Alcohol/Substance Use Hx Alcohol Use: No History of Substance Use: reports: None - Smoking History Smoking history: Former smoker Have you smoked in the past 12 months: No Aproximately how many cigarettes per day: 2 If you are a former smoker, when did you quit?: may 2013 - Social History ADL: Independent (lives in senior building without stairs, ambulated with SC) History of Recent Travel: No Home Medications - Allergies Allergies/Adverse Reactions: Allergies Allergy/AdvReac Type Severity Reaction Status Date / Time No Known Drug Allergies Allergy Verified 05/03/19 19:11 tape AdvReac Uncoded 05/03/19 19:11 - Home Medications Home Medications: Ambulatory Orders Metoprolol Succinate [Toprol XL -] 25 mg PO BID 01/09/17 Escitalopram Oxalate [Lexapro -] 10 mg PO DAILY 08/01/18 LORazepam [Ativan] 1 mg PO TID PRN MDD 2mg 08/01/18 Pantoprazole Sodium [Protonix -] 40 mg PO DAILY 08/01/18 Zolpidem Tartrate [Ambien] 10 mg PO HS PRN MDD 5mg 08/01/18 Oxycodone HCl 10 mg PO TID PRN 08/02/18 Hydrocortisone [Cortef] 10 mg PO DAILY #30 tablet 08/07/18 Hydrocortisone [Cortef] 20 mg PO AM 30 Days #30 tablet 08/07/18 Review of Systems - Review of Systems Constitutional: reports: Loss of Appetite, Malaise Eyes: reports: No Symptoms HENT: reports: No Symptoms Neck: reports: No Symptoms Cardiovascular: reports: No Symptoms Respiratory: reports: No Symptoms Gastrointestinal: reports: Abdominal Pain, Nausea, Vomiting Genitourinary: reports: No Symptoms Breasts: reports: No Symptoms Reported Musculoskeletal: reports: No Symptoms Integumentary: reports: No Symptoms Neurological: reports: No Symptoms Endocrine: reports: No Symptoms Physical Exam Vital Signs: Vital Signs Temperature 97.6 F 05/04/19 10:32 Pulse Rate 84 05/04/19 10:32 Respiratory Rate 18 05/04/19 10:32 Blood Pressure 118/76 05/04/19 10:32 O2 Sat by Pulse Oximetry (%) 95 05/04/19 05:32 Constitutional: Yes: No Distress, Calm Eyes: Yes: Conjunctiva Clear, EOM Intact HENT: Yes: Atraumatic, Normocephalic Neck: Yes: Supple, Trachea Midline Cardiovascular: Yes: Regular Rate and Rhythm Respiratory: Yes: Regular, CTA Bilaterally Gastrointestinal: Yes: Soft, Tenderness (mild over whole abd, more LUQ, NO rebound) Extremities: Yes: WNL Edema: No Neurological: Yes: Alert, Oriented Labs: CBC, BMP 05/04/19 09:15 05/04/19 09:15 Imaging - Results Cat Scan: Report Reviewed Problem List - Problems (1) Adrenal insufficiency Code(s): E27.40 - UNSPECIFIED ADRENOCORTICAL INSUFFICIENCY (2) YOLANDA (acute kidney injury) Code(s): N17.9 - ACUTE KIDNEY FAILURE, UNSPECIFIED (3) Abdominal pain Code(s): R10.9 - UNSPECIFIED ABDOMINAL PAIN Qualifiers: Abdominal location: upper abdomen, unspecified Qualified Code(s): R10.10 - Upper abdominal pain, unspecified Assessment/Plan AP; Abd pain with [place] YOLANDA Adrenal Insufficieny COPD IV hydration Diet as tolerated. Will continue IV Hydrocortisone until pt is able to tolerate oral meds Hydrocortisone 50mg Q8H Decrease to 25mg Q8H tomorrow if Pt remains stable. Will f/u
[2019-05-04] MEDS ORDERED: HYDROCORTISONE 10 MG TABLET PO SCH (13:00)
--- NOTE | 2019-05-04 13:51 | CON.GI ---
Consult Consult Specialty:: Gastroenterology Referred by:: Coleman Avalos MD Reason for Consultation:: Abdominal pain - History of Present Illness Chief Complaint: Abdominal pain and vomitnig and unable to eat since 04/29 History of Present Illness: 69F developed epigastric pain, nausea, vomiting, diarrhea and coryza on 04/30/19. The diarrhea has resolved but pain and vomiting persist. No hematemesis. She did recently take NSAIDs. Her CT reveals mild dilation of the CBD which is new since her 08/13 CT scan. She denies weight loss or loss of appetite. On 10/01/17 she had an EGD and a colonoscopy with me. EGD revealed food residual in her stomach and a small angiodysplastic lesion in the 2nd portion of the duodenum. No varices were seen. She also had 2 transverse colon adenomas and an ascending colon adenoma removed. Mild universal diverticulosis was noted. She has new azotemia. She tells me that her HCV was cured by Dr Marte. 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 osteomyelitis) Psych: Yes: Anxiety Endocrine: Yes: Other (adrenal insufficiency) - Past Surgical History Past Surgical History: Yes: Appendectomy (open and complicated by postop infection), Breast Biopsy (bilateral benign), Colonoscopy, Hysterectomy (TAHBSO for fibroids), Joint Replacement (Ttl Knee replacement x 2 right knee with 2 right knee revisions, Ttl Left knee replacement. MRSA infection), Upper Endoscopy Additional Surgical History: Perforated peptic ulcer surgery. 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 Place of : [facility] History of Recent Travel: No Home Medications - Allergies Allergies/Adverse Reactions: Allergies Allergy/AdvReac Type Severity Reaction Status Date / Time No Known Drug Allergies Allergy Verified 05/03/19 19:11 tape AdvReac Uncoded 05/03/19 19:11 - Home Medications Home Medications: Ambulatory Orders Metoprolol Succinate [Toprol XL -] 25 mg PO BID 01/09/17 Escitalopram Oxalate [Lexapro -] 10 mg PO DAILY 08/01/18 LORazepam [Ativan] 1 mg PO TID PRN MDD 2mg 08/01/18 Pantoprazole Sodium [Protonix -] 40 mg PO DAILY 08/01/18 Zolpidem Tartrate [Ambien] 10 mg PO HS PRN MDD 5mg 08/01/18 Oxycodone HCl 10 mg PO TID PRN 08/02/18 Hydrocortisone [Cortef] 10 mg PO DAILY #30 tablet 08/07/18 Hydrocortisone [Cortef] 20 mg PO AM 30 Days #30 tablet 08/07/18 Family Disease History - Family Disease History Family Disease History: Heart Disease: Father ( 89 CHF), CA: Mother ( 43 breast cancer) Review of Systems - Review of Systems Constitutional: reports: Chills, Malaise, Weakness Eyes: reports: No Symptoms HENT: reports: No Symptoms Neck: reports: No Symptoms Cardiovascular: reports: No Symptoms Respiratory: reports: No Symptoms Gastrointestinal: reports: Abdominal Pain, Diarrhea, Nausea, Vomiting Physical Exam-GI Vital Signs: Vital Signs Temperature 97.6 F 05/04/19 10:32 Pulse Rate 84 05/04/19 10:32 Respiratory Rate 18 05/04/19 10:32 Blood Pressure 118/76 05/04/19 10:32 O2 Sat by Pulse Oximetry (%) 95 05/04/19 05:32 CBC,CMP WBC 8.3 K/mm3 (4.0-10.0) 05/04/19 09:15 RBC 4.66 M/mm3 (3.60-5.2) 05/04/19 09:15 Hgb 14.0 GM/dL (10.7-15.3) 05/04/19 09:15 Hct 41.2 % (32.4-45.2) 05/04/19 09:15 MCV 88.4 fl (80-96) 05/04/19 09:15 MCH 30.0 pg (25.7-33.7) 05/04/19 09:15 MCHC 34.0 g/dl (32.0-36.0) 05/04/19 09:15 RDW 15.4 % (11.6-15.6) 05/04/19 09:15 Plt Count 319 K/MM3 (134-434) 05/04/19 09:15 MPV 7.3 fl (7.5-11.1) L 05/04/19 09:15 Absolute Neuts (auto) 6.5 K/mm3 (1.5-8.0) 05/03/19 21:40 Neutrophils % 70.7 % (42.8-82.8) 05/03/19 21:40 Lymphocytes % 18.0 % (8-40) 05/03/19 21:40 Monocytes % 10.6 % (3.8-10.2) H 05/03/19 21:40 Eosinophils % 0.2 % (0-4.5) 05/03/19 21:40 Basophils % 0.5 % (0-2.0) 05/03/19 21:40 Nucleated RBC % 0 % (0-0) 05/03/19 21:40 Sodium 132 mmol/L (136-145) L 05/04/19 09:15 Potassium 3.9 mmol/L (3.5-5.1) 05/04/19 09:15 Chloride 96 mmol/L (98-107) L 05/04/19 09:15 Carbon Dioxide 29 mmol/L (21-32) 05/04/19 09:15 Anion Gap 8 MMOL/L (8-16) 05/04/19 09:15 BUN 57.5 mg/dL (7-18) H 05/04/19 09:15 Creatinine 2.1 mg/dL (0.55-1.3) H 05/04/19 09:15 Est GFR (CKD-EPI)AfAm 26.96 05/04/19 09:15 Est GFR (CKD-EPI)NonAf 23.26 05/04/19 09:15 Random Glucose 84 mg/dL (74-106) 05/04/19 09:15 Lactic Acid 1.5 mmol/L (0.4-2.0) 05/03/19 21:40 Calcium 9.3 mg/dL (8.5-10.1) 05/04/19 09:15 Phosphorus 5.1 mg/dL (2.5-4.9) H 05/04/19 09:15 Magnesium 3.0 mg/dL (1.8-2.4) H 05/04/19 09:15 Total Bilirubin 0.7 mg/dL (0.2-1) 05/04/19 09:15 AST 21 U/L (15-37) 05/04/19 09:15 ALT 13 U/L (13-61) 05/04/19 09:15 Alkaline Phosphatase 108 U/L (45-117) 05/04/19 09:15 Creatine Kinase 194 U/L (26-192) H 05/04/19 09:15 Creatine Kinase Index 1.4 % (0.0-5.0) 05/04/19 09:15 CK-MB (CK-2) 2.9 ng/mL (0.5-3.6) 05/04/19 09:15 Troponin I 0.05 ng/ml (0.00-0.05) 05/04/19 09:15 Total Protein 7.1 g/dl (6.4-8.2) 05/04/19 09:15 Albumin 3.9 g/dl (3.4-5.0) 05/04/19 09:15 Lipase 181 U/L (73-393) 05/03/19 21:40 TSH 1.08 uIU/ml (0.358-3.74) 05/04/19 09:15 Current Medications Generic Name Dose Route Start Last Admin Trade Name Freq PRN Reason Stop Dose Admin Escitalopram Oxalate 10 mg 05/04/19 10:15 05/04/19 10:30 Lexapro - PO 10 mg DAILY ALFREDA Administration Heparin Sodium (Porcine) 5,000 unit 05/04/19 14:00 Heparin - SQ TID ALFREDA Hydrocortisone Sodium Succinate 50 mg 05/04/19 15:30 Solu-Cortef - IVPUSH Q8H-IV ALFREDA Potassium Chloride 40 meq/ 1,020 mls @ 83 mls/hr 05/04/19 03:45 05/04/19 06: 30 Sodium Chloride IVPB 05/04/19 16:03 83 mls/hr ASDIR ALFREDA Administration Sodium Chloride 1,000 mls @ 100 mls/hr 05/04/19 17:00 Normal Saline - IV ASDIR ALFREDA Lorazepam 1 mg 05/04/19 10:07 Ativan - PO Q8H PRN ANXIETY Metoprolol Succinate 25 mg 05/04/19 22:00 Toprol Xl - PO BID ALFREDA Morphine Sulfate 4 mg 05/04/19 05:13 05/04/19 06:37 Morphine Sulfate IVPUSH 4 mg Q6H PRN Administration PAIN LEVEL 7 - 10 Oxycodone HCl 10 mg 05/04/19 10:08 05/04/19 10:29 Roxicodone - PO 10 mg Q8H PRN Administration PAIN LEVEL 6-10 Pantoprazole Sodium 40 mg 05/04/19 10:00 05/04/19 10:16 Protonix Iv IVPUSH 40 mg DAILY ALFREDA Administration Prochlorperazine Edisylate 10 mg 05/04/19 10:19 05/04/19 12:53 Compazine Injection - IVPB 10 mg Q6H PRN Administration NAUSEA AND/OR VOMITING Zolpidem Tartrate 10 mg 05/04/19 10:07 Ambien - PO HS PRN INSOMNIA Constitutional: Yes: Anxious Eyes: Yes: Conjunctiva Clear HENT: Yes: Atraumatic Neck: Yes: Trachea Midline Cardiovascular: Yes: Regular Rate and Rhythm Respiratory: Yes: CTA Bilaterally, Other (left thoracotomy incision) Gastrointestinal Inspection: Yes: Scars (long upper vertical midline, Pfannensteil and right suprapubic paramedian incisions) ...Auscultate: Yes: Normoactive Bowel Sounds ...Palpate: Yes: Soft, Other (nontender) ...Percussion: Yes: Tympanitic ...Rectal Exam: Yes: Guaiac Negative (brown soft g negative stool) Edema: No Neurological: Yes: Alert, Oriented Labs: CBC, BMP 05/04/19 09:15 05/04/19 09:15 Imaging - Results Cat Scan: Report Reviewed ( Final Report CT ABDOMEN & PELVIS CT W/O CONTR Show Printer-Friendly Version Patient Name: Petra Aflonso : 1950 ID: [id number] Study Date: 04-May-2019 00:27 Homermaribeth Gonzalez Name: PETRA ALFONSO DEPARTMENT OF RADIOLOGY Phys: Charles Stanley MD : 1950 Age: 69 Sex: F [facility] Acct: [id number] Loc: [address] Exam Date: 05/04/19 Status: [place] [address] Unit Number: [id number] EXAM#: TYPE/EXAM: RESULT: [id number] CT/ABDOMEN PELVIS CT W/O CONTR HISTORY PROVIDED: Abdominal pain, rule out SBO TECHNIQUE: Sequential axial images were obtained from the domes of the diaphragm through the symphysis pubis following the administration of oral contrast material. Evaluation of the lung bases demonstrates chronic lung changes without evidence of acute infiltrates or pleural effusions. There is a deformity of the left lateral rib cage consistent with old trauma. A hiatal hernia is also noted in the retrocardiac space. The liver, spleen, pancreas, adrenal glands and kidneys demonstrate no significant abnormalities. There is prominence of the distal CBD without obvious obstruction. MRCP follow-up is recommended, if clinically indicated. There is no evidence of intra- abdominal or retroperitoneal lymphadenopathy or fluid collections. There is no evidence of pneumoperitoneum, bowel obstruction or intra-abdominal abscess. There is no CT evidence of acute appendicitis or diverticulitis. Examination of the pelvis demonstrates no evidence of pelvic masses, fluid collections or lymphadenopathy. The urinary bladder is somewhat distended. There is no evidence of acute bony pathology. There are old pelvic fractures present. IMPRESSION: 1. Prominent CBD without obvious obstruction. MRCP follow-up recommended. 2. No acute pathology within the abdomen or pelvis. Please see above discussion. Reported By: Kostas Loomis MD 05/04/19926 Technologist: Yue Topete Transcribed Date/Time: 04/14 Rewinder Operator: Kostas Loomis Printed Date/Time: By: Signed by: Kostas Loomis Signed on: 04-May-2019 09:28) MRI: Image Reviewed (reviewed with Dr Bermudez- No CBD stones or strictures. Dilation suggests a choledochal cyst ?) Problem List - Problems (1) Nausea and vomiting Assessment/Plan: Given it's association with chills, coryza, brief diarrhea I suspect viral gastroenteritis and now with a postviral gastroparesis and perhaps nausea due to azotemia which I suspect reflects NSAID injury compounded by dehydration from nausea and vomiting . Her pain may reflect the resultant gastric distension. Given her NSAID usage an ulcer cannot be excluded Code(s): R11.2 - NAUSEA WITH VOMITING, UNSPECIFIED Qualifiers: Vomiting type: unspecified Vomiting Intractability: non-intractable Qualified Code(s): R11.2 - Nausea with vomiting, unspecified (2) Dilated bile duct Code(s): K83.8 - OTHER SPECIFIED DISEASES OF BILIARY TRACT (3) History of adenomatous polyp of colon Code(s): Z86.010 - PERSONAL HISTORY OF COLONIC POLYPS (4) Hepatitis C virus infection cured after antiviral drug therapy Code(s): Z86.19 - PERSONAL HISTORY OF OTHER INFECTIOUS AND PARASITIC DISEASES (5) Diverticulosis Code(s): K57.90 - DVRTCLOS OF INTEST, PART UNSP, W/O PERF OR ABSCESS W/O BLEED (6) Status post repair of paraesophageal diaphragmatic hernia Code(s): Z98.890 - OTHER SPECIFIED POSTPROCEDURAL STATES; Z87.19 - PERSONAL HISTORY OF OTHER DISEASES OF THE DIGESTIVE SYSTEM (7) Perforated peptic ulcer Code(s): K27.5 - CHRONIC OR UNSP PEPTIC ULCER, SITE UNSP, WITH PERFORATION (8) Vascular ectasia of duodenum Code(s): K31.89 - OTHER DISEASES OF STOMACH AND DUODENUM (9) YOLANDA (acute kidney injury) Code(s): N17.9 - ACUTE KIDNEY FAILURE, UNSPECIFIED (10) Abdominal pain Code(s): R10.9 - UNSPECIFIED ABDOMINAL PAIN Qualifiers: Abdominal location: upper abdomen, unspecified Qualified Code(s): R10.10 - Upper abdominal pain, unspecified (11) Adrenal insufficiency Code(s): E27.40 - UNSPECIFIED ADRENOCORTICAL INSUFFICIENCY (12) COPD (chronic obstructive pulmonary disease) Code(s): J44.9 - CHRONIC OBSTRUCTIVE PULMONARY DISEASE, UNSPECIFIED Qualifiers: COPD type: unspecified COPD Qualified Code(s): J44.9 - Chronic obstructive pulmonary disease, unspecified Assessment/Plan Assessment: - Given it's association with chills, coryza, brief diarrhea I suspect viral gastroenteritis and now with a postviral gastroparesis and perhaps nausea due to azotemia which I suspect reflects NSAID injury compounded by dehydration from nausea and vomiting . Her pain may reflect the resultant gastric distension. Given her NSAID usage an ulcer cannot be excluded, particularly given her personal h/o peptic ulcer perforation - Personal h/o colon adenomas and not yet due for surveillance - Hepatitis C cured - Diverticulosis Plan: -- IV rehydration -- Reglan -- PPI --EGD if pain persists -- Will ultimately need an MRI with contrast ( pancreatic protocol) to more definitively exclude an underlying pancreatic head mass if/when her renal function permits. I have discussed this with her.
[2019-05-04] MEDS ORDERED: HYDROCORTISONE SOD SUCCINATE 100 MG/2 ML VIAL IVPUSH SCH (15:00)
[2019-05-04] MEDS: HYDROCORTISONE SOD SUCCINATE 100 MG/2 ML VIAL IVPUSH SCH (15:10)
[2019-05-04] MEDS: HEPARIN NA (PORCINE) 5,000 UNITS/ML 1ML VIAL SQ SCH ×2 (15:11→22:37)
--- NOTE | 2019-05-04 16:24 | EKG ---
Test Reason : Blood Pressure : / mmHG Vent. Rate : 090 BPM Atrial Rate : 090 BPM P-R Int : 130 ms QRS Dur : 076 ms QT Int : 470 ms P-R-T Axes : 049 -14 -03 degrees QTc Int : 574 ms NORMAL SINUS RHYTHM NONSPECIFIC T WAVE ABNORMALITY PROLONGED QT ABNORMAL ECG WHEN COMPARED WITH ECG OF 04-MAY-2019 10:34, QT HAS LENGTHENED Confirmed by LITTLE SOLER MD ([id number]) on 05/04/2019 4:23:53 PM Referred By: Manpreet RENNER Confirmed By:LITTLE SOLER MD
--- NOTE | 2019-05-04 16:27 | EKG ---
Test Reason : Blood Pressure : / mmHG Vent. Rate : 079 BPM Atrial Rate : 079 BPM P-R Int : 134 ms QRS Dur : 076 ms QT Int : 396 ms P-R-T Axes : 059 -10 017 degrees QTc Int : 454 ms NORMAL SINUS RHYTHM T WAVE ABNORMALITY, CONSIDER LATERAL ISCHEMIA ABNORMAL ECG WHEN COMPARED WITH ECG OF 03-MAY-2019 19:36, PREMATURE ATRIAL COMPLEXES ARE NO LONGER PRESENT CRITERIA FOR ANTEROSEPTAL INFARCT ARE NO LONGER PRESENT NONSPECIFIC T WAVE ABNORMALITY NOW EVIDENT IN INFERIOR LEADS T WAVE INVERSION NOW EVIDENT IN ANTEROLATERAL LEADS Confirmed by LITTLE SOLER MD ([id number]) on 05/04/2019 4:27:37 PM Referred By: Reny RODRIGUEZ Confirmed By:LITTLE SOLER MD
--- NOTE | 2019-05-04 16:40 | EKG ---
Test Reason : Blood Pressure : / mmHG Vent. Rate : 111 BPM Atrial Rate : 111 BPM P-R Int : 122 ms QRS Dur : 078 ms QT Int : 360 ms P-R-T Axes : 057 -16 054 degrees QTc Int : 489 ms SINUS TACHYCARDIA WITH PREMATURE ATRIAL COMPLEXES POSSIBLE LEFT ATRIAL ENLARGEMENT ANTEROSEPTAL INFARCT , AGE UNDETERMINED ABNORMAL ECG WHEN COMPARED WITH ECG OF 02-AUG-2018 18:15, PREMATURE ATRIAL COMPLEXES ARE NOW PRESENT VENT. RATE HAS INCREASED BY 43 BPM ANTEROSEPTAL INFARCT IS NOW PRESENT NONSPECIFIC T WAVE ABNORMALITY NO LONGER EVIDENT IN INFERIOR LEADS NONSPECIFIC T WAVE ABNORMALITY, IMPROVED IN ANTEROLATERAL LEADS Confirmed by LITTLE SOLER MD ([id number]) on 05/04/2019 4:40:38 PM Referred By: Confirmed By:LITTLE SOLER MD
[2019-05-04] MEDS: PANTOPRAZOLE SODIUM 40 MG VIAL IVPUSH SCH (22:27)
[2019-05-04] MEDS: metoPROLOL SUCCINATE 25 MG TAB.SR.24H (FP) PO SCH (22:27)
[2019-05-04] MEDS: ZOLPIDEM TARTRATE 5 MG TABLET PO PRN (22:27)
[2019-05-05] MEDS: SODIUM CHLORIDE 1,000 ML IV SCH ×4 (01:32→22:35)
[2019-05-05] MEDS: HYDROCORTISONE SOD SUCCINATE 100 MG/2 ML VIAL IVPUSH SCH ×3 (01:32→17:42)
[2019-05-05] MEDS: HEPARIN NA (PORCINE) 5,000 UNITS/ML 1ML VIAL SQ SCH ×3 (05:59→22:31)
[2019-05-05] MEDS: oxyCODONE HCL 5 MG TABLET PO PRN ×3 (06:13→18:58)
[2019-05-05 07:58] LABS: BLOOD UREA NITROGEN 36.8 mg/dL (7-18); CREATININE 1.1 mg/dL (0.55-1.3); MAGNESIUM 2.5 mg/dL (1.8-2.4)
[2019-05-05 08:44] LABS: AMYLASE 52 U/L (25-115); LIPASE 130 U/L (73-393)
[2019-05-05] MEDS ORDERED: NAPH,MB-DB/K PH,MBDB POWDER PACKET PO ONE (08:45)
[2019-05-05 08:48] LABS: ALBUMIN 3.4 g/dl (3.4-5.0); BILIRUBIN,DIRECT 0.2 mg/dL (0.0-0.2); BILIRUBIN,TOTAL 0.6 mg/dL (0.2-1); TOT PROT 6.2 g/dl (6.4-8.2)
[2019-05-05] MEDS: PANTOPRAZOLE SODIUM 40 MG VIAL IVPUSH SCH (09:47)
[2019-05-05] MEDS: metoPROLOL SUCCINATE 25 MG TAB.SR.24H (FP) PO SCH ×2 (09:55→22:31)
[2019-05-05] MEDS ORDERED: PROCHLORPERAZINE INJECTION 10 MG/2 ML VIAL IVPB PRN (11:36)
--- NOTE | 2019-05-05 11:37 | PN.GI ---
GI Progress Note Subjective: GI NOte: Still has epigastric pain but no viomting and is hungry. Renal function us improving. LFTs remain normal as is amylase and lipase. I discussed the need for a contrast MRI to exclude an underlying pancreatic neoplasm once her renal function allows for this. Her brother had pancreatic cancer. MRCP reveals no obvious tumor or pancreatic ductal dilation - Objective Vital Signs: Vital Signs Temperature 98 F 05/05/19 04:00 Pulse Rate 80 05/05/19 04:00 Respiratory Rate 17 05/05/19 04:00 Blood Pressure 130/71 05/05/19 04:00 O2 Sat by Pulse Oximetry (%) 95 05/04/19 05:32 Laboratory Tests 09/11/18 05/03/19 05/03/19 12:02 21:40 21:40 WBC 9.2 Hgb 14.8 BUN Creatinine 0.8 2.8 H Total Bilirubin Direct Bilirubin GGT AST ALT Alkaline Phosphatase Total Amylase Lipase Tumor Marker AFP CA 19-9 Antigen 05/04/19 05/04/19 05/05/19 09:15 09:15 06:00 WBC 8.3 Hgb 14.0 BUN 57.5 H Creatinine 2.1 H Total Bilirubin Direct Bilirubin GGT AST ALT Alkaline Phosphatase Total Amylase 52 Lipase 130 Tumor Marker AFP CA 19-9 Antigen 05/05/19 05/05/19 05/05/19 06:45 08:00 08:00 WBC Hgb BUN 36.8 H Creatinine 1.1 Total Bilirubin 0.6 Direct Bilirubin 0.2 GGT 23 AST 17 ALT 14 Alkaline Phosphatase 92 Total Amylase Lipase Tumor Marker AFP Pending CA 19-9 Antigen Pending Constitutional: Anxious ...Auscultate: Yes: Normoactive Bowel Sounds ...Palpate: Yes: Soft, Other (mild epigastirc tenderness) Labs: CBC, BMP 05/04/19 09:15 05/05/19 06:45 Assessment/Plan Assessment: - Given it's association with chills, coryza, brief diarrhea I suspect viral gastroenteritis and now with a postviral gastroparesis and perhaps nausea due to azotemia which I suspect reflects NSAID injury compounded by dehydration from nausea and vomiting . Her pain may reflect the resultant gastric distension. Given her NSAID usage an ulcer cannot be excluded, particularly given her personal h/o peptic ulcer perforation - Personal h/o colon adenomas and not yet due for surveillance - Hepatitis C cured - Diverticulosis Plan: -- IV rehydration -- Reglan -- PPI --EGD if pain persists -- Will ultimately need an MRI with contrast ( pancreatic protocol) to more definitively exclude an underlying pancreatic head mass if/when her renal function permits. I have discussed this with her. Problem List - Problems (1) Nausea and vomiting Code(s): R11.2 - NAUSEA WITH VOMITING, UNSPECIFIED Qualifiers: Vomiting type: unspecified Vomiting Intractability: non-intractable Qualified Code(s): R11.2 - Nausea with vomiting, unspecified (2) Dilated bile duct Code(s): K83.8 - OTHER SPECIFIED DISEASES OF BILIARY TRACT (3) History of adenomatous polyp of colon Code(s): Z86.010 - PERSONAL HISTORY OF COLONIC POLYPS (4) Hepatitis C virus infection cured after antiviral drug therapy Code(s): Z86.19 - PERSONAL HISTORY OF OTHER INFECTIOUS AND PARASITIC DISEASES (5) Diverticulosis Code(s): K57.90 - DVRTCLOS OF INTEST, PART UNSP, W/O PERF OR ABSCESS W/O BLEED (6) Status post repair of paraesophageal diaphragmatic hernia Code(s): Z98.890 - OTHER SPECIFIED POSTPROCEDURAL STATES; Z87.19 - PERSONAL HISTORY OF OTHER DISEASES OF THE DIGESTIVE SYSTEM (7) Perforated peptic ulcer Code(s): K27.5 - CHRONIC OR UNSP PEPTIC ULCER, SITE UNSP, WITH PERFORATION (8) Vascular ectasia of duodenum Code(s): K31.89 - OTHER DISEASES OF STOMACH AND DUODENUM (9) YOLANDA (acute kidney injury) Code(s): N17.9 - ACUTE KIDNEY FAILURE, UNSPECIFIED (10) Abdominal pain Code(s): R10.9 - UNSPECIFIED ABDOMINAL PAIN Qualifiers: Abdominal location: upper abdomen, unspecified Qualified Code(s): R10.10 - Upper abdominal pain, unspecified (11) Adrenal insufficiency Code(s): E27.40 - UNSPECIFIED ADRENOCORTICAL INSUFFICIENCY (12) COPD (chronic obstructive pulmonary disease) Code(s): J44.9 - CHRONIC OBSTRUCTIVE PULMONARY DISEASE, UNSPECIFIED Qualifiers: COPD type: unspecified COPD Qualified Code(s): J44.9 - Chronic obstructive pulmonary disease, unspecified
--- NOTE | 2019-05-05 11:48 | PN ---
Teaching Attending Note Name of Resident: Palma Andrew ATTENDING PHYSICIAN STATEMENT I saw and evaluated the patient. I reviewed the resident's note and discussed the case with the resident. I agree with the resident's findings and plan as documented. SUBJECTIVE: feels a little better today , still feels dry , has no diarrhea , has upper abd pain. no dysuria or hematuria. OBJECTIVE: NAD , awake, alert., pleasant, dry MM. CV: RRR, no MRG, NO JVD Lungs; CTAB Ext: no edema or erythema or hyperpigmentation . R leg is shorter than L. Abd: soft, ND, TTP in epigastric area and LUQ. with no rebound tenderness. NL BS. Assessment/Plan: 69 y/o lady with h/o adrenal insufficiency, b/l TKR, septic joint, hiatal hernia , anxiety,, insomnia, anemia, GI bleed, Treated Hep C, asthma, duodenal perforation , MVP, OA , and chronic pain, who presented with N/V and abd pain 1- N/V/Abd pain, suspect viral gastroenteritis VS gastritis. doubt UTI despite pyuria , as no urinary sx and localized pain in epigastric and LUQ areas - cont IVF - make PPI daily instead of BID - MRCP reviewed, no stones or obstruction but prominent CBD. Will advise out pZt MRCP with contrast - appreciate ZDr. Zamarripa input . possible EGD - advance diet to full liquids - cont compazine - if urine cx is positive will treat for UTI 2- YOLANDA: due to volume depletion . cr improved - cont IVF 3- H/o Adrenal insufficiency - decrease hydrocortizone to 25 mg q 8 H - endocrine consult appreciated 4- Monitor and repelte electrolytes as needed 5- DVT px : heparin sq
[2019-05-05] MEDS: ESCITALOPRAM OXALATE 20 MG TABLET (FP) PO SCH (12:16)
[2019-05-05] MEDS: morphine SULFATE 4 MG/ML VIAL IVPUSH PRN ×2 (12:16→23:45)
--- NOTE | 2019-05-05 16:23 | PN ---
Physical Exam: SUBJECTIVE: Patient seen and examined at the bedside, no acute events overnight but still feeling nauseated. Dry heaving during interview. Still endorsing upper abdominal pain, nausea, and chills. Patient denies fevers, diarrhea, dysuria, and hematuria. OBJECTIVE: Vital Signs Period Temp Pulse Resp BP Sys/Xiao Pulse Ox Last 24 Hr 97.4 F-98.6 F 70-83 17-20 122-148/60-71 GENERAL: The patient is awake, alert, and fully oriented, in no acute distress. HEAD: Normal with no signs of trauma. EYES: PERRL, extraocular movements intact, sclera anicteric, conjunctiva clear. No ptosis. ENT: Ears normal, nares patent, oropharynx clear without exudates, dry mucous membranes. NECK: Trachea midline, full range of motion, supple. LUNGS: Breath sounds equal, clear to auscultation bilaterally, no wheezes, no crackles, no accessory muscle use. HEART: Regular rate and rhythm, S1, S2 without murmur, rub or gallop. ABDOMEN: Soft, tender to light palpation LUQ>RUQ, normoactive bowel sounds, no guarding, no rebound EXTREMITIES: 2+ pulses, warm, well-perfused, no edema. R leg is shorter than L. NEUROLOGICAL: Cranial nerves II through XII grossly intact. Normal speech, gait not observed. PSYCH: Normal mood, normal affect. SKIN: Warm, dry, normal turgor. Laboratory Results - last 24 hr 05/04/19 05/05/19 05/05/19 16:52 06:00 06:45 Sodium 134 L Potassium 4.0 Chloride 103 Carbon Dioxide 23 Anion Gap 9 BUN 36.8 H Creatinine 1.1 Est GFR (CKD-EPI)AfAm 58.91 Est GFR (CKD-EPI)NonAf 50.83 Random Glucose 87 Calcium 9.0 Phosphorus 3.0 Magnesium 2.5 H Total Bilirubin Direct Bilirubin GGT AST ALT Alkaline Phosphatase Creatine Kinase 163 Creatine Kinase Index 1.5 CK-MB (CK-2) 2.6 Troponin I 0.02 C-Reactive Protein < 0.3 Total Protein Albumin Total Amylase 52 Lipase 130 05/05/19 08:00 Sodium Potassium Chloride Carbon Dioxide Anion Gap BUN Creatinine Est GFR (CKD-EPI)AfAm Est GFR (CKD-EPI)NonAf Random Glucose Calcium Phosphorus Magnesium Total Bilirubin 0.6 Direct Bilirubin 0.2 GGT 23 AST 17 ALT 14 Alkaline Phosphatase 92 Creatine Kinase Creatine Kinase Index CK-MB (CK-2) Troponin I C-Reactive Protein Total Protein 6.2 L Albumin 3.4 Total Amylase Lipase Active Medications Generic Name Dose Route Start Last Admin Trade Name Freq PRN Reason Stop Dose Admin Escitalopram Oxalate 20 mg 05/05/19 11:45 05/05/19 12:16 Lexapro - PO 20 mg DAILY ALFREDA Administration Heparin Sodium (Porcine) 5,000 unit 05/04/19 14:00 05/05/19 15:29 Heparin - SQ 5,000 unit TID ALFREDA Administration Hydrocortisone Sodium Succinate 25 mg 05/05/19 10:37 Solu-Cortef - IVPUSH Q8H-IV ALFREDA Sodium Chloride 1,000 mls @ 100 mls/hr 05/04/19 17:00 05/05/19 12:26 Normal Saline - IV 100 mls/hr ASDIR ALFREDA Administration Lorazepam 1 mg 05/04/19 10:07 Ativan - PO Q8H PRN ANXIETY Metoprolol Succinate 25 mg 05/04/19 22:00 05/05/19 09:55 Toprol Xl - PO 25 mg BID ALFREDA Administration Morphine Sulfate 4 mg 05/04/19 05:13 05/05/19 12:16 Morphine Sulfate IVPUSH 4 mg Q6H PRN Administration PAIN LEVEL 7 - 10 Oxycodone HCl 10 mg 05/04/19 10:08 05/05/19 15:28 Roxicodone - PO 10 mg Q8H PRN Administration PAIN LEVEL 6-10 Pantoprazole Sodium 40 mg 05/06/19 10:00 Protonix Iv IVPUSH DAILY [facility] Prochlorperazine Edisylate 10 mg 05/05/19 11:36 05/05/19 12:20 Compazine Injection - IVPB 10 mg Q6H PRN Administration NAUSEA AND/OR VOMITING Zolpidem Tartrate 10 mg 05/04/19 10:07 05/04/19 22:27 Ambien - PO 10 mg HS PRN Administration INSOMNIA ASSESSMENT/PLAN: Patient is a 69y old woman with pmhx of adrenal insufficiency, mitral valve prolapse, bilateral total knee replacement, septic joint, hiatal hernia, anemia , GI bleed, duodenal perforation, hepatits C (treated), and COPD who presented to the ED on 05/04 with nausea, vomiting, and diffuse persistent upper abdominal pain for 5 days duration. # N/V/Abd pain- suspect viral gastroenteritis VS gastritis. UA suspicious for UTI however, patient has no urinary sx and pain is localized to the epigastric and LUQ regions. - F/U results of Ucx, if positive will treat for UTI - cont IVF - Protonix 40 daily - MRCP reviewed, no stones or obstruction but prominent CBD. - per GI patient will need outpatient MRI with contrast ( pancreatic protocol ) to more definitively exclude an underlying pancreatic head mass when her renal function permits - EGD if pain persists - GI following, appreciate recommendatins (Dr. Zamarripa) - Diet - full liquids - Continue compazine # YOLANDA: due to volume depletion - BUN/Cr 36.8/1.1, improved from 57.5/2.1 yesterday - cont IVF # H/o Adrenal insufficiency - decrease hydrocortizone to 25 mg q 8 H - endocrine consult appreciated #Hyponatremia - Na improved to 134 - Continue IVF # Hypermagnesemia - Patient was hypomagnesemic and repleated, now hypermag - continue to follow #FEN NS 100cc/r Monitor and repelte electrolytes as needed Full liquid diet DVT px : heparin sq Visit type - Emergency Visit Emergency Visit: Yes ED Registration Date: 05/04/19 Care time: The patient presented to the Emergency Department on the above date and was hospitalized for further evaluation of their emergent condition. - New Patient This patient is new to me today: Yes Date on this admission: 05/05/19 - Critical Care Critical Care patient: No - Discharge Referral Referred to [facility] Med P.C.: No ATTENDING PHYSICIAN STATEMENT I saw and evaluated the patient. I reviewed the resident's note and discussed the case with the resident. I agree with the resident's findings and plan as documented. SUBJECTIVE: OBJECTIVE: ASSESSMENT AND PLAN:
[2019-05-05] MEDS: ZOLPIDEM TARTRATE 5 MG TABLET PO PRN (22:31)
[2019-05-05] MEDS: LORazepam 1 MG TABLET PO PRN (22:35)
[2019-05-06] MEDS: HYDROCORTISONE SOD SUCCINATE 100 MG/2 ML VIAL IVPUSH SCH ×3 (01:22→18:30)
[2019-05-06] MEDS: HEPARIN NA (PORCINE) 5,000 UNITS/ML 1ML VIAL SQ SCH ×3 (05:37→21:27)
[2019-05-06] MEDS: oxyCODONE HCL 5 MG TABLET PO PRN ×3 (05:37→21:24)
[2019-05-06] MEDS: morphine SULFATE 4 MG/ML VIAL IVPUSH PRN ×2 (08:50→18:46)
[2019-05-06] MEDS: PANTOPRAZOLE SODIUM 40 MG VIAL IVPUSH SCH (09:00)
[2019-05-06] MEDS: metoPROLOL SUCCINATE 25 MG TAB.SR.24H (FP) PO SCH ×2 (09:00→21:24)
[2019-05-06] MEDS: ESCITALOPRAM OXALATE 20 MG TABLET (FP) PO SCH (09:00)
[2019-05-06 09:26] LABS: ANION GAP 11 MMOL/L (8-16); BLOOD UREA NITROGEN 16.8 mg/dL (7-18); CHLORIDE 103 mmol/L (98-107); CO2 26 mmol/L (21-32); CREATININE 0.9 mg/dL (0.55-1.3); GLUCOSE,RANDOM 88 mg/dL (74-106); MAGNESIUM 2.1 mg/dL (1.8-2.4); PHOSPHOROUS 2.3 mg/dL (2.5-4.9); POTASSIUM 3.9 mmol/L (3.5-5.1); SODIUM 140 mmol/L (136-145)
[2019-05-06 09:37] LABS: BASO % 0.2 % (0-2.0); EOS % 0.1 % (0-4.5); HEMATOCRIT 32.2 % (32.4-45.2); HEMOGLOBIN 10.9 GM/dL (10.7-15.3); LYMPH % 23.6 % (8-40); MCH 29.9 pg (25.7-33.7); MEAN PLT VOLUME 7.5 fl (7.5-11.1); MONO % 5.8 % (3.8-10.2); NEUT % 70.3 % (42.8-82.8); PLATELET COUNT 205 K/MM3 (134-434); RBC 3.66 M/mm3 (3.60-5.2); RDW 15.2 % (11.6-15.6); WHITE BLOOD COUNT 4.3 K/mm3 (4.0-10.0)
[2019-05-06] MEDS: SODIUM CHLORIDE 1,000 ML IV SCH ×3 (11:14→21:32)
[2019-05-06 13:07] LABS: TRANSGLUTAMINASE IGA < 2 U/mL (0-3); TRANSGLUTAMINASE IGG < 2 U/mL (0-5)
[2019-05-06] MEDS: LORazepam 1 MG TABLET PO PRN ×2 (13:24→21:25)
[2019-05-06 13:33] VITALS: BMI 26.9
--- NOTE | 2019-05-06 14:52 | PN ---
Physical Exam: SUBJECTIVE: Patient examined at bedside. Nursing reported patient has been asking for more pain medication. Patient states she still has upper abdominal pain and has urinated three times since last night. Patient denies fevers, chills, nausea, diarrhea, dysuria, and hematuria. OBJECTIVE: Vital Signs Period Temp Pulse Resp BP Sys/Xiao Pulse Ox Last 24 Hr 97.5 F-98.1 F 57-67 17-18 112-145/54-86 98-98 GENERAL: The patient is awake, alert, and fully oriented, in no acute distress. HEAD: Normal with no signs of trauma. EYES: PERRL, extraocular movements intact, sclera anicteric, conjunctiva clear. No ptosis. ENT: Ears normal, nares patent, oropharynx clear without exudates, moist mucous membranes. NECK: Trachea midline, full range of motion, supple. LUNGS: Breath sounds equal, clear to auscultation bilaterally, no wheezes, no crackles, no accessory muscle use. HEART: Regular rate and rhythm, S1, S2, systolic ejection murmur. ABDOMEN: normoactive bowel sounds; tender to light palpation in LUQ; no rebound tenderness or guarding EXTREMITIES: 2+ pulses, warm, well-perfused, no edema. NEUROLOGICAL: Cranial nerves II through XII grossly intact. Normal speech, gait not observed. PSYCH: Normal mood, normal affect. SKIN: Warm, dry, normal turgor, no rashes or lesions noted Laboratory Results - last 24 hr 05/05/19 05/06/19 05/06/19 08:00 08:22 08:22 WBC 4.3 RBC 3.66 Hgb 10.9 Hct 32.2 L D MCV 88.0 MCH 29.9 MCHC 34.0 RDW 15.2 Plt Count 205 D MPV 7.5 Absolute Neuts (auto) 3.0 Neutrophils % 70.3 Lymphocytes % 23.6 D Monocytes % 5.8 Eosinophils % 0.1 Basophils % 0.2 Nucleated RBC % 0 Sodium 140 Potassium 3.9 Chloride 103 Carbon Dioxide 26 Anion Gap 11 BUN 16.8 Creatinine 0.9 Est GFR (CKD-EPI)AfAm 75.08 Est GFR (CKD-EPI)NonAf 64.78 Random Glucose 88 Calcium 9.0 Phosphorus 2.3 L Magnesium 2.1 C-Reactive Protein < 0.3 Tumor Marker AFP 2.9 CA 19-9 Antigen 16 Tiss Transglutamin IgG < 2 Tiss Transglutamin IgA < 2 Active Medications Generic Name Dose Route Start Last Admin Trade Name Freq PRN Reason Stop Dose Admin Escitalopram Oxalate 20 mg 05/05/19 11:45 05/06/19 09:00 Lexapro - PO 20 mg DAILY ALFREDA Administration Heparin Sodium (Porcine) 5,000 unit 05/04/19 14:00 05/06/19 13:25 Heparin - SQ 5,000 unit TID ALFREDA Administration Hydrocortisone Sodium Succinate 25 mg 05/05/19 10:37 05/06/19 09:00 Solu-Cortef - IVPUSH 25 mg Q8H-IV ALFREDA Administration Sodium Chloride 1,000 mls @ 100 mls/hr 05/04/19 17:00 05/06/19 11:14 Normal Saline - IV 100 mls/hr ASDIR ALFREDA Administration Lorazepam 1 mg 05/04/19 10:07 05/06/19 13:24 Ativan - PO 1 mg Q8H PRN Administration ANXIETY Metoprolol Succinate 25 mg 05/04/19 22:00 05/06/19 09:00 Toprol Xl - PO 25 mg BID ALFREDA Administration Morphine Sulfate 4 mg 05/04/19 05:13 05/06/19 08:50 Morphine Sulfate IVPUSH 4 mg Q6H PRN Administration PAIN LEVEL 7 - 10 Oxycodone HCl 10 mg 05/04/19 10:08 05/06/19 13:20 Roxicodone - PO 10 mg Q8H PRN Administration PAIN LEVEL 6-10 Pantoprazole Sodium 40 mg 05/06/19 10:00 05/06/19 09:00 Protonix Iv IVPUSH 40 mg DAILY ALFREDA Administration Prochlorperazine Edisylate 10 mg 05/05/19 11:36 05/05/19 12:20 Compazine Injection - IVPB 10 mg Q6H PRN Administration NAUSEA AND/OR VOMITING Zolpidem Tartrate 10 mg 05/04/19 10:07 05/05/19 22:31 Ambien - PO 10 mg HS PRN Administration INSOMNIA ASSESSMENT/PLAN: Patient is a 69-year-old female with PMHx of adrenal insufficiency, mitral valve prolapse, bilateral total knee replacement, septic joint, hiatal hernia, anemia, GI bleed, duodenal perforation, hepatitis C, and COPD who presented to the ED on 05/04 with nausea, vomiting, and diffuse persistent upper abdominal pain of 5 days duration. # Viral gastroenteritis v. gastritis - Continue IV fluids - Continue PPI - Continue Compazine - Patient getting EGD tomorrow per GI, NPO after midnight # YOLANDA due to volume depletion - BUN/Cr 16.8/.9, improved from 36.8/1.1 yesterday - Continue to monitor # History of Adrenal Insufficiency - Continue hydrocortisone to 25 mg q8hrs # Hyponatremia, resolved - Sodium level 140, improved from 134 yesterday - Continue to monitor # Hypermagnesemia - Patient initially hypomagnesemic, was repleted and had hypermagnesemia - Magnesium 2.1, improved from 2.5 yesterday - Continue to monitor # DVT Prophylaxis - Continue heparin 5,000 units subq tid Visit type - Emergency Visit Emergency Visit: Yes ED Registration Date: 05/04/19 Care time: The patient presented to the Emergency Department on the above date and was hospitalized for further evaluation of their emergent condition. - New Patient This patient is new to me today: Yes Date on this admission: 05/06/19 - Critical Care Critical Care patient: No - Discharge Referral Referred to [facility] Med P.C.: No ATTENDING PHYSICIAN STATEMENT I saw and evaluated the patient. I reviewed the resident's note and discussed the case with the resident. I agree with the resident's findings and plan as documented. SUBJECTIVE: OBJECTIVE: ASSESSMENT AND PLAN:
--- NOTE | 2019-05-06 17:17 | PN.GI ---
GI Progress Note Subjective: GI NOte: Pain persists and is requiring narcotics yet wants to eat, CRP unremarkable. Renal function has normalized. - Objective Vital Signs: Vital Signs Temperature 97.5 F L 05/06/19 14:40 Pulse Rate 57 L 05/06/19 14:40 Respiratory Rate 18 05/06/19 14:40 Blood Pressure 124/72 05/06/19 14:40 O2 Sat by Pulse Oximetry (%) 98 05/06/19 09:00 Laboratory Tests 05/03/19 05/04/19 05/05/19 21:40 09:15 06:45 WBC Hgb 14.8 14.0 BUN 36.8 H Creatinine 1.1 C-Reactive Protein 05/06/19 05/06/19 08:22 08:22 WBC 4.3 Hgb 10.9 BUN 16.8 Creatinine 0.9 C-Reactive Protein < 0.3 Constitutional: No Distress ...Auscultate: Yes: Hypoactive Bowel Sounds ...Palpate: Yes: Soft, Other (mild LUQ tendernes) Labs: CBC, BMP 05/06/19 08:22 05/06/19 08:22 Assessment/Plan Assessment: - The source of pain is not readily evident. It may reflect gastric distension as she had a stomach with retained food at her last EGD. She may have had a vagotomy at the time of her ulcer surgery affecting gastric emptying. Narcotics will be aggravating this. Her Reglan was stopped. She could alternatively have an underlying pancreatic neoplasm missed by noncontrast MRCP. - Personal h/o colon adenomas and not yet due for surveillance - Hepatitis C cured - Diverticulosis - pancreatic cancer Plan: -- I have discussed EGD in in detail including informing Petra of the potential for such complications as perforation and hemorrhage. She has granted an infromed consent. I will keep her NPO until then to minimize chances of aspiration. -- Will order an MRI with contrast ( pancreatic protocol) to more definitively exclude an underlying pancreatic head mass. I have discussed this with her. Discussed case with the residency and nursing staff Problem List - Problems (1) Nausea and vomiting Code(s): R11.2 - NAUSEA WITH VOMITING, UNSPECIFIED Qualifiers: Vomiting type: unspecified Vomiting Intractability: non-intractable Qualified Code(s): R11.2 - Nausea with vomiting, unspecified (2) Dilated bile duct Code(s): K83.8 - OTHER SPECIFIED DISEASES OF BILIARY TRACT (3) History of adenomatous polyp of colon Code(s): Z86.010 - PERSONAL HISTORY OF COLONIC POLYPS (4) Hepatitis C virus infection cured after antiviral drug therapy Code(s): Z86.19 - PERSONAL HISTORY OF OTHER INFECTIOUS AND PARASITIC DISEASES (5) Diverticulosis Code(s): K57.90 - DVRTCLOS OF INTEST, PART UNSP, W/O PERF OR ABSCESS W/O BLEED (6) Status post repair of paraesophageal diaphragmatic hernia Code(s): Z98.890 - OTHER SPECIFIED POSTPROCEDURAL STATES; Z87.19 - PERSONAL HISTORY OF OTHER DISEASES OF THE DIGESTIVE SYSTEM (7) Perforated peptic ulcer Code(s): K27.5 - CHRONIC OR UNSP PEPTIC ULCER, SITE UNSP, WITH PERFORATION (8) Vascular ectasia of duodenum Code(s): K31.89 - OTHER DISEASES OF STOMACH AND DUODENUM (9) YOLANDA (acute kidney injury) Code(s): N17.9 - ACUTE KIDNEY FAILURE, UNSPECIFIED (10) Abdominal pain Code(s): R10.9 - UNSPECIFIED ABDOMINAL PAIN Qualifiers: Abdominal location: upper abdomen, unspecified Qualified Code(s): R10.10 - Upper abdominal pain, unspecified (11) Adrenal insufficiency Code(s): E27.40 - UNSPECIFIED ADRENOCORTICAL INSUFFICIENCY (12) COPD (chronic obstructive pulmonary disease) Code(s): J44.9 - CHRONIC OBSTRUCTIVE PULMONARY DISEASE, UNSPECIFIED Qualifiers: COPD type: unspecified COPD Qualified Code(s): J44.9 - Chronic obstructive pulmonary disease, unspecified
--- NOTE | 2019-05-06 18:50 | PN ---
Teaching Attending Note Name of Resident: Keyana Woodward ATTENDING PHYSICIAN STATEMENT I saw and evaluated the patient. I reviewed the resident's note and discussed the case with the resident. I agree with the resident's findings and plan as documented. SUBJECTIVE: No fever or chills. has painin epigastric area and LUQ. no SOB or CP . no diarrhea OBJECTIVE: NAD, awake, alert. pleasant,MMM CV: RRR, no MRG, NO JVD Lungs; CTAB Ext: no edema or erythema R leg is shorter than L. Abd: soft, ND, TTP in epigastric area and LUQ. with no rebound tenderness. NL BS. Assessment/Plan: 69 y/o lady with h/o adrenal insufficiency, b/l TKR, septic joint, hiatal hernia , anxiety,, insomnia, anemia, GI bleed, Treated Hep C, asthma, duodenal perforation , MVP, OA , and chronic pain, who presented with N/V and abd pain 1- N/V/Abd pain, viral gastroenteritis VS gastritis Vs peptic ulcer . Urine cx neg - cont IVF - cont PPI - appreciate Dr. Zamarripa input . EGD and MRCP with contrast -NPO now - cont compazine 2- YOLANDA: due to volume depletion. resolved 3- H/o Adrenal insufficiency - cont hydrocortizone at 25 mg q 8 H - After EGD ,and if oral intake improves, then might be able to place back on home dose of po hydrocortisone 4- Monitor and replete electrolytes as needed 5- DVT px : heparin sq . hold after MN for EGD tomorrow ASSESSMENT AND PLAN:
[2019-05-06 20:08] LABS: HEP B CORE AB, TOT Negative (Negative)
[2019-05-06] MEDS: ZOLPIDEM TARTRATE 5 MG TABLET PO PRN (21:24)
[2019-05-07] MEDS: HYDROCORTISONE SOD SUCCINATE 100 MG/2 ML VIAL IVPUSH SCH ×3 (02:31→17:51)
[2019-05-07] MEDS: morphine SULFATE 4 MG/ML VIAL IVPUSH PRN (02:34)
[2019-05-07] MEDS: LORazepam 1 MG TABLET PO PRN ×2 (06:36→18:54)
[2019-05-07] MEDS: oxyCODONE HCL 5 MG TABLET PO PRN (06:36)
[2019-05-07] MEDS: SODIUM CHLORIDE 1,000 ML IV SCH (06:39)
[2019-05-07 07:42] LABS: BASO % 0.2 % (0-2.0); EOS % 0.4 % (0-4.5); HEMOGLOBIN 11.1 GM/dL (10.7-15.3); LYMPH % 25.5 % (8-40); MCH 29.9 pg (25.7-33.7); MCHC 33.7 g/dl (32.0-36.0); MEAN CELL VOLUME 88.8 fl (80-96); MEAN PLT VOLUME 7.4 fl (7.5-11.1); MONO % 6.1 % (3.8-10.2); NEUT % 67.8 % (42.8-82.8); PLATELET COUNT 193 K/MM3 (134-434); RBC 3.71 M/mm3 (3.60-5.2); RDW 15.1 % (11.6-15.6); RETICULOCYTES 1.18 % (0.5-1.5); WHITE BLOOD COUNT 3.4 K/mm3 (4.0-10.0)
[2019-05-07 08:14] LABS: ALBUMIN 3.1 g/dl (3.4-5.0); BILIRUBIN,TOTAL 0.4 mg/dL (0.2-1); BLOOD UREA NITROGEN 11.4 mg/dL (7-18); CALCIUM 8.7 mg/dL (8.5-10.1); CREATININE 0.8 mg/dL (0.55-1.3); POTASSIUM 3.7 mmol/L (3.5-5.1); TOT PROT 5.9 g/dl (6.4-8.2)
--- NOTE | 2019-05-07 09:38 | PN ---
Teaching Attending Note Name of Resident: Keyana Woodward ATTENDING PHYSICIAN STATEMENT I saw and evaluated the patient. I reviewed the resident's note and discussed the case with the resident. I agree with the resident's findings and plan as documented. SUBJECTIVE: Patient is c/o having abdomial pain, LUQ pain. OBJECTIVE: Vital Signs Temperature 97.7 F 05/07/19 06:00 Pulse Rate 55 L 05/07/19 06:00 Respiratory Rate 18 05/07/19 06:00 Blood Pressure 156/77 05/07/19 06:00 O2 Sat by Pulse Oximetry (%) 98 05/06/19 21:00 GENERAL: The patient is awake, alert, and fully oriented, in no acute distress. HEAD: Normal with no signs of trauma. EYES: PERRL, extraocular movements intact, sclera anicteric, conjunctiva clear. ENT: Ears normal, oropharynx clear without exudates, moist mucous membranes. NECK: Trachea midline, full range of motion, supple. LUNGS: Breath sounds equal, clear to auscultation bilaterally, no wheezes, no crackles, no accessory muscle use. HEART: Regular rate and rhythm, S1, S2 without murmur, rub or gallop. ABDOMEN: Soft, LUQ tenderness on palpation, mild diffuse abdominal pain. ND, +BS , no guarding, no rebound, no hepatosplenomegaly, no masses. EXTREMITIES: 2+ pulses, warm, well-perfused, no edema. NEUROLOGICAL: Cranial nerves II through XII grossly intact. Normal speech, gait not observed. PSYCH: Normal mood, normal affect. SKIN: Warm, dry, normal turgor, no rashes or lesions noted CBCD WBC 3.4 K/mm3 (4.0-10.0) L 05/07/19 05:30 RBC 3.71 M/mm3 (3.60-5.2) 05/07/19 05:30 Hgb 11.1 GM/dL (10.7-15.3) 05/07/19 05:30 Hct 33.0 % (32.4-45.2) 05/07/19 05:30 MCV 88.8 fl (80-96) 05/07/19 05:30 MCHC 33.7 g/dl (32.0-36.0) 05/07/19 05:30 RDW 15.1 % (11.6-15.6) 05/07/19 05:30 Plt Count 193 K/MM3 (134-434) 05/07/19 05:30 MPV 7.4 fl (7.5-11.1) L 05/07/19 05:30 CMP Sodium 136 mmol/L (136-145) 05/07/19 05:30 Potassium 3.7 mmol/L (3.5-5.1) 05/07/19 05:30 Chloride 102 mmol/L (98-107) 05/07/19 05:30 Carbon Dioxide 26 mmol/L (21-32) 05/07/19 05:30 Anion Gap 9 MMOL/L (8-16) 05/07/19 05:30 BUN 11.4 mg/dL (7-18) 05/07/19 05:30 Creatinine 0.8 mg/dL (0.55-1.3) 05/07/19 05:30 Random Glucose 87 mg/dL (74-106) 05/07/19 05:30 Calcium 8.7 mg/dL (8.5-10.1) 05/07/19 05:30 Total Bilirubin 0.4 mg/dL (0.2-1) 05/07/19 05:30 AST 15 U/L (15-37) 05/07/19 05:30 ALT 12 U/L (13-61) L 05/07/19 05:30 Alkaline Phosphatase 83 U/L (45-117) 05/07/19 05:30 Total Protein 5.9 g/dl (6.4-8.2) L 05/07/19 05:30 Albumin 3.1 g/dl (3.4-5.0) L 05/07/19 05:30 CARDIAC ENZYMES Creatine Kinase 163 U/L (26-192) 05/04/19 16:52 Troponin I 0.02 ng/ml (0.00-0.05) 05/04/19 16:52 Current Medications Generic Name Dose Route Start Last Admin Trade Name Freq PRN Reason Stop Dose Admin Escitalopram Oxalate 20 mg 05/05/19 11:45 05/06/19 09:00 Lexapro - PO 20 mg DAILY ALFREDA Administration Heparin Sodium (Porcine) 5,000 unit 05/04/19 14:00 05/06/19 21:27 Heparin - SQ Not Given TID ALFREDA Hydrocortisone Sodium Succinate 25 mg 05/05/19 10:37 05/07/19 02:31 Solu-Cortef - IVPUSH 25 mg Q8H-IV ALFREDA Administration Sodium Chloride 1,000 mls @ 100 mls/hr 05/04/19 17:00 05/07/19 06:39 Normal Saline - IV 100 mls/hr ASDIR ALFREDA Administration Lorazepam 1 mg 05/04/19 10:07 05/07/19 06:36 Ativan - PO 1 mg Q8H PRN Administration ANXIETY Metoprolol Succinate 25 mg 05/04/19 22:00 05/06/19 21:24 Toprol Xl - PO 25 mg BID ALFREDA Administration Morphine Sulfate 4 mg 05/04/19 05:13 05/07/19 02:34 Morphine Sulfate IVPUSH 4 mg Q6H PRN Administration PAIN LEVEL 7 - 10 Oxycodone HCl 10 mg 05/04/19 10:08 05/07/19 06:36 Roxicodone - PO 10 mg Q8H PRN Administration PAIN LEVEL 6-10 Pantoprazole Sodium 40 mg 05/06/19 10:00 05/06/19 09:00 Protonix Iv IVPUSH 40 mg DAILY ALFREDA Administration Prochlorperazine Edisylate 10 mg 05/05/19 11:36 05/05/19 12:20 Compazine Injection - IVPB 10 mg Q6H PRN Administration NAUSEA AND/OR VOMITING Zolpidem Tartrate 10 mg 05/04/19 10:07 05/06/19 21:24 Ambien - PO 10 mg HS PRN Administration INSOMNIA Home Medications Medication Instructions Recorded Metoprolol Succinate [Toprol XL -] 25 mg PO BID 01/09/17 Escitalopram Oxalate [Lexapro -] 10 mg PO DAILY 08/01/18 LORazepam [Ativan] 1 mg PO TID PRN MDD 2mg 08/01/18 Pantoprazole Sodium [Protonix -] 40 mg PO DAILY 08/01/18 Zolpidem Tartrate [Ambien] 10 mg PO HS PRN MDD 5mg 08/01/18 Oxycodone HCl 10 mg PO TID PRN 08/02/18 Hydrocortisone [Cortef] 10 mg PO DAILY #30 tablet 08/07/18 Hydrocortisone [Cortef] 20 mg PO AM 30 Days #30 tablet 08/07/18 ASSESSMENT AND PLAN: Pain is a 69 y/o female with PMHx of adrenal insufficiency, b/l TKR, septic joint, hiatal hernia, anxiety,, insomnia, anemia, GI bleed, Treated Hep C, asthma, duodenal perforation , MVP, OA , and chronic pain, who presented with N/ V and abd pain # Acute intractable nausea and vomiting with abdominal pain s/p for EGD today; Retained food and fluid in stomach with reflux esophagitis with ulcer, Bx result is pending, on Protonix and reglan as per GI. MRCP with contrast ordered by # YOLANDA: due to volume depletion. resolved # H/o Adrenal insufficiency: as per Endocrine to continue with 20mg po am and 10mg at 2pm , starting in am , with protonix 40mg po bid # Monitor and replete electrolytes as needed DVT px : SCDs for now. possible dc in am if tolerates diet.
--- NOTE | 2019-05-07 10:13 | PN ---
Physical Exam: SUBJECTIVE: Patient seen and examined at the bedside, patient states she is still feeling nauseous but has not been vomiting. Is NPO today for EGD study. OBJECTIVE: Vital Signs Period Temp Pulse Resp BP Sys/Xiao Pulse Ox Last 24 Hr 97.5 F-98.4 F 53-59 17-18 117-156/70-79 98 GENERAL: The patient is awake, alert, and fully oriented, in no acute distress. HEAD: Normal with no signs of trauma. EYES: PERRL, extraocular movements intact, sclera anicteric, conjunctiva clear. No ptosis. ENT: Ears normal, nares patent, oropharynx clear without exudates, moist mucous membranes. NECK: Trachea midline, full range of motion, supple. LUNGS: Breath sounds equal, clear to auscultation bilaterally, no wheezes, no crackles, no accessory muscle use. HEART: Regular rate and rhythm, S1, S2, systolic ejection murmur. ABDOMEN: normoactive bowel sounds; tender to light palpation in LUQ; no rebound tenderness or guarding EXTREMITIES: 2+ pulses, warm, well-perfused, no edema. NEUROLOGICAL: Cranial nerves II through XII grossly intact. Normal speech, gait not observed. PSYCH: Normal mood, normal affect. SKIN: Warm, dry, normal turgor, no rashes or lesions noted Laboratory Results - last 24 hr 05/05/19 05/07/19 05/07/19 08:00 05:30 05:30 WBC 3.4 L RBC 3.71 Hgb 11.1 Hct 33.0 MCV 88.8 MCH 29.9 MCHC 33.7 RDW 15.1 Plt Count 193 MPV 7.4 L Absolute Neuts (auto) 2.3 Neutrophils % 67.8 Lymphocytes % 25.5 Monocytes % 6.1 Eosinophils % 0.4 D Basophils % 0.2 Nucleated RBC % 0 Retic Count 1.18 Sodium 136 Potassium 3.7 Chloride 102 Carbon Dioxide 26 Anion Gap 9 BUN 11.4 Creatinine 0.8 Est GFR (CKD-EPI)AfAm 86.57 Est GFR (CKD-EPI)NonAf 74.70 Random Glucose 87 Calcium 8.7 Iron TIBC Iron Saturation Unsaturated IBC Ferritin Total Bilirubin 0.4 AST 15 ALT 12 L Alkaline Phosphatase 83 Total Protein 5.9 L Albumin 3.1 L Vitamin B12 Serum Folate 13 ADRIEN Screen Negative Tiss Transglutamin IgG < 2 Tiss Transglutamin IgA < 2 Hep A IgM Ab Confirm Negative Hepatitis A Ab Total Negative Hep Bs Antigen Negative Hep Bs Antibody Reactive Hep B Core Total Ab Negative Hep B Core IgM Ab Negative Hepatitis Be Antibody Negative Hepatitis Be Antigen Negative 05/07/19 05:30 WBC RBC Hgb Hct MCV MCH MCHC RDW Plt Count MPV Absolute Neuts (auto) Neutrophils % Lymphocytes % Monocytes % Eosinophils % Basophils % Nucleated RBC % Retic Count Sodium Potassium Chloride Carbon Dioxide Anion Gap BUN Creatinine Est GFR (CKD-EPI)AfAm Est GFR (CKD-EPI)NonAf Random Glucose Calcium Iron 131 TIBC 278 Iron Saturation 47 H Unsaturated IBC 147 L Ferritin 117.9 Total Bilirubin AST ALT Alkaline Phosphatase Total Protein Albumin Vitamin B12 515 Serum Folate ADRIEN Screen Tiss Transglutamin IgG Tiss Transglutamin IgA Hep A IgM Ab Confirm Hepatitis A Ab Total Hep Bs Antigen Hep Bs Antibody Hep B Core Total Ab Hep B Core IgM Ab Hepatitis Be Antibody Hepatitis Be Antigen Active Medications Generic Name Dose Route Start Last Admin Trade Name Freq PRN Reason Stop Dose Admin Escitalopram Oxalate 20 mg 05/05/19 11:45 05/06/19 09:00 Lexapro - PO 20 mg DAILY ALFREDA Administration Heparin Sodium (Porcine) 5,000 unit 05/04/19 14:00 05/06/19 21:27 Heparin - SQ Not Given TID ALFREDA Hydrocortisone Sodium Succinate 25 mg 05/05/19 10:37 05/07/19 02:31 Solu-Cortef - IVPUSH 25 mg Q8H-IV ALFREDA Administration Sodium Chloride 1,000 mls @ 100 mls/hr 05/04/19 17:00 05/07/19 06:39 Normal Saline - IV 100 mls/hr ASDIR ALFREDA Administration Lorazepam 1 mg 05/04/19 10:07 05/07/19 06:36 Ativan - PO 1 mg Q8H PRN Administration ANXIETY Metoprolol Succinate 25 mg 05/04/19 22:00 05/06/19 21:24 Toprol Xl - PO 25 mg BID ALFREDA Administration Morphine Sulfate 4 mg 05/04/19 05:13 05/07/19 02:34 Morphine Sulfate IVPUSH 4 mg Q6H PRN Administration PAIN LEVEL 7 - 10 Oxycodone HCl 10 mg 05/04/19 10:08 05/07/19 06:36 Roxicodone - PO 10 mg Q8H PRN Administration PAIN LEVEL 6-10 Pantoprazole Sodium 40 mg 05/06/19 10:00 05/06/19 09:00 Protonix Iv IVPUSH 40 mg DAILY ALFREDA Administration Prochlorperazine Edisylate 10 mg 05/05/19 11:36 05/05/19 12:20 Compazine Injection - IVPB 10 mg Q6H PRN Administration NAUSEA AND/OR VOMITING Zolpidem Tartrate 10 mg 05/04/19 10:07 05/06/19 21:24 Ambien - PO 10 mg HS PRN Administration INSOMNIA ASSESSMENT/PLAN: Patient is a 69-year-old female with PMHx of adrenal insufficiency, mitral valve prolapse, bilateral total knee replacement, septic joint, hiatal hernia, anemia, GI bleed, duodenal perforation, hepatitis C, and COPD who presented to the ED on 05/04 with nausea, vomiting, and diffuse persistent upper abdominal pain of 5 days duration. # Viral gastroenteritis v. gastritis - Continue IV fluids - Continue PPI - Continue Compazine - Patient got EGD today. - Per Dr. Zamarripa, there was copious amounts of retained food and fluid in the stomach leading to severe reflux esophagitis with an ulcer which is causing pain. Florid Latia gland polyposis was seen in her bulb and biopsied extensively to exclude adenomatous polyps. Dr. Zamarripa explained that she is at risk for aspiration pneumonia or bleeding/perforation from/of the esophageal ulceration. Patient needs to avoid agents that inhibit gastric contractility ( NO NARCOTICS). - Recommends reglan 10mg 1/2hr ac - implement antireflux measures including elevation of HOB - If diet can be tolerated patient can be discharged. # YOLANDA resolved # History of Adrenal Insufficiency - Continue hydrocortisone to 25 mg q8hrs # Hyponatremia, resolved # Hypermagnesemia resolved # DVT Prophylaxis - Continue heparin 5,000 units subq tid, holding for now, will resume tomorrow. Dispo: If diet can be tolerated patient can be discharged. Visit type - Emergency Visit Emergency Visit: Yes ED Registration Date: 05/04/19 Care time: The patient presented to the Emergency Department on the above date and was hospitalized for further evaluation of their emergent condition. - New Patient This patient is new to me today: No - Critical Care Critical Care patient: No - Discharge Referral Referred to [facility] No ATTENDING PHYSICIAN STATEMENT I saw and evaluated the patient. I reviewed the resident's note and discussed the case with the resident. I agree with the resident's findings and plan as documented. SUBJECTIVE: OBJECTIVE: ASSESSMENT AND PLAN:
--- NOTE | 2019-05-07 12:39 | PN ---
Progress Note (short form) - Note Progress Note: GI Procedure NOte: Please see scanned EGD report. ED revealed copious amounts of retained food and fluid in the stomach leading to severe reflux esophagitis with an ulcer. This is the source of her pain. Florid Ltaia gland polyposis was seen in her bulb and biopsied extensively to exclude adenomatous polyps. I explained to Petra that she is at risk for aspiration pneumonia or bleeding/ perforation from/of the esophageal ulceration and need to avoid agents that inhibit her gastric contractility, more specifically narcotics. I have advised Reglan 10mg 1/2hr ac and informed her of t he risks of neurological side effects including tardive dyskinesia. I also informed her of the need to implement antireflux measures including elevation of the head of her bed with a brick beneath each headpost. I also told her that Reglan conflicts with her Lexapro and that she will need to discuss an alternative drug with her PMD. Will stop all narcotics and Lexapro and start Reglan. If diet is tolerated she can be discharged. Problem List - Problems (1) Nausea and vomiting Code(s): R11.2 - NAUSEA WITH VOMITING, UNSPECIFIED Qualifiers: Vomiting type: unspecified Vomiting Intractability: non-intractable Qualified Code(s): R11.2 - Nausea with vomiting, unspecified (2) Dilated bile duct Code(s): K83.8 - OTHER SPECIFIED DISEASES OF BILIARY TRACT (3) History of adenomatous polyp of colon Code(s): Z86.010 - PERSONAL HISTORY OF COLONIC POLYPS (4) Hepatitis C virus infection cured after antiviral drug therapy Code(s): Z86.19 - PERSONAL HISTORY OF OTHER INFECTIOUS AND PARASITIC DISEASES (5) Diverticulosis Code(s): K57.90 - DVRTCLOS OF INTEST, PART UNSP, W/O PERF OR ABSCESS W/O BLEED (6) Status post repair of paraesophageal diaphragmatic hernia Code(s): Z98.890 - OTHER SPECIFIED POSTPROCEDURAL STATES; Z87.19 - PERSONAL HISTORY OF OTHER DISEASES OF THE DIGESTIVE SYSTEM (7) Perforated peptic ulcer Code(s): K27.5 - CHRONIC OR UNSP PEPTIC ULCER, SITE UNSP, WITH PERFORATION (8) Vascular ectasia of duodenum Code(s): K31.89 - OTHER DISEASES OF STOMACH AND DUODENUM (9) YOLANDA (acute kidney injury) Code(s): N17.9 - ACUTE KIDNEY FAILURE, UNSPECIFIED (10) Abdominal pain Code(s): R10.9 - UNSPECIFIED ABDOMINAL PAIN Qualifiers: Abdominal location: upper abdomen, unspecified Qualified Code(s): R10.10 - Upper abdominal pain, unspecified (11) Adrenal insufficiency Code(s): E27.40 - UNSPECIFIED ADRENOCORTICAL INSUFFICIENCY (12) COPD (chronic obstructive pulmonary disease) Code(s): J44.9 - CHRONIC OBSTRUCTIVE PULMONARY DISEASE, UNSPECIFIED Qualifiers: COPD type: unspecified COPD Qualified Code(s): J44.9 - Chronic obstructive pulmonary disease, unspecified
[2019-05-07] MEDS ORDERED: MAG HYDROX/AL HYDROX/SIMETH 30 ML UNIT-DOSE CUP PO PRN (12:41)
[2019-05-07] MEDS: PANTOPRAZOLE SODIUM 40 MG VIAL IVPUSH SCH (12:55)
[2019-05-07] MEDS: ESCITALOPRAM OXALATE 20 MG TABLET (FP) PO SCH (12:55)
[2019-05-07] MEDS: metoPROLOL SUCCINATE 25 MG TAB.SR.24H (FP) PO SCH ×2 (12:55→21:15)
[2019-05-07] MEDS: METOCLOPRAMIDE HCL INJECTION 10 MG/2 ML VIAL IVPUSH SCH ×2 (12:56→17:53)
[2019-05-07] MEDS ORDERED: ACETAMINOPHEN 1000 MG/100 ML VIAL (NON FORMULARY) IVPB ONE (18:00)
[2019-05-07] MEDS: PANTOPRAZOLE 40 MG TABLET (FP) PO SCH (21:15)
[2019-05-07] MEDS: ZOLPIDEM TARTRATE 5 MG TABLET PO PRN (21:15)
[2019-05-07] MEDS ORDERED: ACETAMINOPHEN 325 MG TABLET (FP) PO ONE (22:09)
[2019-05-08] MEDS: METOCLOPRAMIDE HCL INJECTION 10 MG/2 ML VIAL IVPUSH SCH ×3 (00:29→12:02)
[2019-05-08] MEDS: HYDROCORTISONE SOD SUCCINATE 100 MG/2 ML VIAL IVPUSH SCH ×2 (02:17→09:07)
[2019-05-08] MEDS: HEPARIN NA (PORCINE) 5,000 UNITS/ML 1ML VIAL SQ SCH ×2 (05:53→15:08)
[2019-05-08] MEDS: LORazepam 1 MG TABLET PO PRN (06:04)
[2019-05-08 08:14] LABS: HEMATOCRIT 31.8 % (32.4-45.2); HEMOGLOBIN 10.8 GM/dL (10.7-15.3); MCH 29.8 pg (25.7-33.7); MCHC 33.9 g/dl (32.0-36.0); MEAN CELL VOLUME 87.7 fl (80-96); MEAN PLT VOLUME 7.3 fl (7.5-11.1); PLATELET COUNT 167 K/MM3 (134-434); RBC 3.62 M/mm3 (3.60-5.2); RDW 15.4 % (11.6-15.6); WHITE BLOOD COUNT 4.3 K/mm3 (4.0-10.0)
[2019-05-08 08:30] LABS: BLOOD UREA NITROGEN 15.2 mg/dL (7-18); CALCIUM 8.7 mg/dL (8.5-10.1); CREATININE 0.8 mg/dL (0.55-1.3); POTASSIUM 3.2 mmol/L (3.5-5.1)
[2019-05-08] MEDS ORDERED: POTASSIUM CHLORIDE TABS 20 MEQ TABLET.ER (FP) PO ONE (08:49)
[2019-05-08] MEDS: metoPROLOL SUCCINATE 25 MG TAB.SR.24H (FP) PO SCH (09:07)
[2019-05-08] MEDS: PANTOPRAZOLE 40 MG TABLET (FP) PO SCH (09:07)
--- NOTE | 2019-05-08 11:30 | PN ---
Progress Note (short form) - Note Progress Note: Still with nausea, No vomiting Vital Signs Period Temp Pulse Resp BP Sys/Xiao Pulse Ox Last 24 Hr 97.4 F-98.5 F 50-67 16-20 108-157/65-89 95-100 PE: AOx3 Neck: supple, No JVD HEENT: EOMI Lungs: CTA CVS: S1S2 Abd: Benign, +BS EXt: No edema Neuro: No focal deficit CMP Sodium 137 mmol/L (136-145) 05/08/19 07:10 Potassium 3.2 mmol/L (3.5-5.1) L 05/08/19 07:10 Chloride 101 mmol/L (98-107) 05/08/19 07:10 Carbon Dioxide 28 mmol/L (21-32) 05/08/19 07:10 Anion Gap 8 MMOL/L (8-16) 05/08/19 07:10 BUN 15.2 mg/dL (7-18) 05/08/19 07:10 Creatinine 0.8 mg/dL (0.55-1.3) 05/08/19 07:10 Est GFR (CKD-EPI)AfAm 86.57 05/08/19 07:10 Est GFR (CKD-EPI)NonAf 74.70 05/08/19 07:10 Random Glucose 94 mg/dL (74-106) 05/08/19 07:10 Lactic Acid 1.5 mmol/L (0.4-2.0) 05/03/19 21:40 Calcium 8.7 mg/dL (8.5-10.1) 05/08/19 07:10 Phosphorus 2.3 mg/dL (2.5-4.9) L 05/06/19 08:22 Magnesium 2.1 mg/dL (1.8-2.4) 05/06/19 08:22 Iron 131 ug/dL (50-175) 05/07/19 05:30 TIBC 278 ug/dL (250-450) 05/07/19 05:30 Iron Saturation 47 % (17.5-39) H 05/07/19 05:30 Unsaturated IBC 147 ug/dL (200-275) L 05/07/19 05:30 Ferritin 117.9 ng/ml (8-388) 05/07/19 05:30 Total Bilirubin 0.4 mg/dL (0.2-1) 05/07/19 05:30 Direct Bilirubin 0.2 mg/dL (0.0-0.2) 05/05/19 08:00 GGT 23 U/L (5-85) 05/05/19 08:00 AST 15 U/L (15-37) 05/07/19 05:30 ALT 12 U/L (13-61) L 05/07/19 05:30 Alkaline Phosphatase 83 U/L (45-117) 05/07/19 05:30 Creatine Kinase 163 U/L (26-192) 05/04/19 16:52 Creatine Kinase Index 1.5 % (0.0-5.0) 05/04/19 16:52 CK-MB (CK-2) 2.6 ng/mL (0.5-3.6) 05/04/19 16:52 Troponin I 0.02 ng/ml (0.00-0.05) 05/04/19 16:52 C-Reactive Protein < 0.3 MG/DL (0.00-0.3) 05/06/19 08:22 Total Protein 5.9 g/dl (6.4-8.2) L 05/07/19 05:30 Albumin 3.1 g/dl (3.4-5.0) L 05/07/19 05:30 Total Amylase 52 U/L (25-115) 05/05/19 06:00 Lipase 130 U/L (73-393) 05/05/19 06:00 Tumor Marker AFP 2.9 ng/ml (0.0-8.3) 05/05/19 08:00 CA 19-9 Antigen 16 U/mL (0-35) 05/05/19 08:00 Vitamin B12 515 pg/ml (193-986) 05/07/19 05:30 Serum Folate 13 ng/mL (3.1-17.5) 05/07/19 05:30 TSH 1.08 uIU/ml (0.358-3.74) 05/04/19 09:15 Current Medications Generic Name Dose Route Start Last Admin Trade Name Freq PRN Reason Stop Dose Admin Al Hydroxide/Mg Hydroxide 30 ml 05/07/19 12:41 05/08/19 09:07 Mylanta Oral Suspension - PO 30 ml Q6H PRN Administration DYSPEPSIA Heparin Sodium (Porcine) 5,000 unit 05/04/19 14:00 05/08/19 05:53 Heparin - SQ 5,000 unit TID ALFREDA Administration Hydrocortisone Sodium Succinate 25 mg 05/05/19 10:37 05/08/19 09:07 Solu-Cortef - IVPUSH 25 mg Q8H-IV ALFREDA Administration Lorazepam 1 mg 05/04/19 10:07 05/08/19 06:04 Ativan - PO 1 mg Q8H PRN Administration ANXIETY Metoclopramide HCl 10 mg 05/07/19 12:45 05/08/19 05:53 Reglan Injection - IVPUSH 10 mg Q6H ALFREDA Administration Metoprolol Succinate 25 mg 05/04/19 22:00 05/08/19 09:07 Toprol Xl - PO 25 mg BID ALFREDA Administration Pantoprazole Sodium 40 mg 05/07/19 22:00 05/08/19 09:07 Protonix - PO 40 mg BID ALFREDA Administration Zolpidem Tartrate 10 mg 05/04/19 10:07 05/07/19 21:15 Ambien - PO 10 mg HS PRN Administration INSOMNIA AP; Abd pain with NV YOLANDA Adrenal Insufficieny COPD Esophagitis with ulcer IV hydration Diet as tolerated. Will continue IV Hydrocortisone until pt is able to tolerate oral meds Hydrocortisone 50mg Q8H Decrease to 25mg Q8H Will f/u Problem List - Problems (1) Adrenal insufficiency Code(s): E27.40 - UNSPECIFIED ADRENOCORTICAL INSUFFICIENCY (2) YOLANDA (acute kidney injury) Code(s): N17.9 - ACUTE KIDNEY FAILURE, UNSPECIFIED (3) Abdominal pain Code(s): R10.9 - UNSPECIFIED ABDOMINAL PAIN Qualifiers: Abdominal location: upper abdomen, unspecified Qualified Code(s): R10.10 - Upper abdominal pain, unspecified
[2019-05-08 12:12] VITALS: TEMP 97.6
[2019-05-08 15:07] VITALS: BP 117/75; PULSE 64
--- NOTE | 2019-05-08 16:25 | PATH ---
Surgical Pathology Report Patient Name: DERRICK ALFONSO [facility]. Rec. #: [id number] /Age/Gender: 1950 (Age: 69) / F Account: [id number] Location: [facility] MED/SURG Taken: 05/07/2019 Received: 05/07/2019 Reported: 05/08/2019 Physicians: Augustine Zamarripa M.D. Specimen(s) Received A: DUODENUM, SECOND PORTION AND BULB B: ANTRUM C: GE JUNCTION Clinical History Abdominal pain Postoperative diagnosis: Hiatal hernia, GERD, polypoid duodenal bulb, ? Latia's gland hyperplasia Final Diagnosis A. DUODENUM, SECOND PORTION AND BULB, BIOPSY: DUODENAL MUCOSA WITH MILD TO MODERATE CHRONIC DUODENITIS AND GASTRIC HETEROTOPIA. B. STOMACH, ANTRUM, BIOPSY: GASTRIC ANTRAL MUCOSA WITH MILD CHRONIC GASTRITIS. IMMUNOHISTOCHEMICAL STAIN FOR H. PYLORI IS NEGATIVE. C. GE JUNCTION, BIOPSY: SQUAMOCOLUMNAR MUCOSA WITH MILD ACUTE AND CHRONIC INFLAMMATION AND CHANGES OF MODERATE TO SEVERE REFLUX ESOPHAGITIS. NO INTESTINAL METAPLASIA OR DYSPLASIA IDENTIFIED. Electronically Signed Latisha Jimenez M.D. Gross Description A. Received in formalin, labeled "second portion and bulb duodenum" are 10 soliman, irregular portions of soft tissue ranging in size from 0.1-0.3 cm. in greatest dimension. The specimens are submitted in toto in one cassette. B. Received in formalin, labeled "antrum" are 4 soilman, irregular portions of soft tissue ranging in size from 0.1-0.3 cm. in greatest dimension. The specimens are submitted in toto in one cassette. C. Received in formalin, labeled "GE junction" is a soliman, irregular portion of soft tissue measuring 0.6 cm. in greatest dimension. The specimen is submitted in toto in one cassette. MLSZ/05/07/2019 sanml/05/07/2019
--- NOTE | 2019-05-08 18:14 | DS ---
Physical Exam: SUBJECTIVE: Patient seen and examined OBJECTIVE: Vital Signs Period Temp Pulse Resp BP Sys/Xiao Pulse Ox Last 24 Hr 97.6 F-98.5 F 50-64 17-18 112-157/70-75 95-95 PHYSICAL EXAM GENERAL: The patient is awake, alert, and fully oriented, in no acute distress. HEAD: Normal with no signs of trauma. EYES: PERRL, extraocular movements intact, sclera anicteric, conjunctiva clear. ENT: Ears normal, nares patent, oropharynx clear without exudates, moist mucous membranes. NECK: Trachea midline, full range of motion, supple. LUNGS: Breath sounds equal, clear to auscultation bilaterally, no wheezes, no crackles, no accessory muscle use. HEART: Regular rate and rhythm, S1, S2 without murmur, rub or gallop. ABDOMEN: Soft, nontender, nondistended, normoactive bowel sounds, no guarding, no rebound, no hepatosplenomegaly, no masses. EXTREMITIES: 2+ pulses, warm, well-perfused, no edema. NEUROLOGICAL: Cranial nerves II through XII grossly intact. Normal speech, gait not observed. PSYCH: Normal mood, normal affect. SKIN: Warm, dry, normal turgor, no rashes or lesions noted. LABS Laboratory Results - last 24 hr 05/08/19 05/08/19 07:10 07:10 WBC 4.3 RBC 3.62 Hgb 10.8 Hct 31.8 L MCV 87.7 MCH 29.8 MCHC 33.9 RDW 15.4 Plt Count 167 MPV 7.3 L Sodium 137 Potassium 3.2 L Chloride 101 Carbon Dioxide 28 Anion Gap 8 BUN 15.2 Creatinine 0.8 Est GFR (CKD-EPI)AfAm 86.57 Est GFR (CKD-EPI)NonAf 74.70 Random Glucose 94 Calcium 8.7 HOSPITAL COURSE: Date of Admission:05/04/19 Date of Discharge: 05/08/19 Minutes to complete discharge: 40 Discharge Summary Reason For Visit: ACUTE KIDNEY INJURY,NASEA AND VOMITING, HYPOMAGNES Condition: Stable - Instructions Diet, Activity, Other Instructions: You were in the hospital because you were having abdominal pain that was associated with nausea, and diarrhea. While you were here you were seen by Dr. Zamarripa, a GI doctor, who preformed an endoscopy. He found that you had reflux esophagitis with an ulcer in addition to some Latia gland polyposis which was biopsied for further evaluation. You will need to follow up with Dr. Zamarripa as an outpatient for further treatment of your condition. Please continue taking all of your home medications as prescribed with the following changes: Medicines need to continue: - Reglan 10mg by mouth every 6 hours for 2 weeks, you need to be on this medication for 3 months as per , please follow up with GI doctor and call the office for further medication refill. - Hydrocotisone 20mg in the morning and 10mg at 2pm daily - Protonix, 40mg twice per day 30 minutes before you take the hydrocortisone - Carafate 1g every 6 hours STOP: All narcotic pain medications For pain, please follow up with Dr. Kaci Alvarez about what medicines you can try. We are avoiding narcotic pain medicine because it can slow down the movement in your GI system which can worsen your ulcer and make your pain worse and prolonged. Also need to see your psychiatrist or your agriculturist for change of Lexapro since there is an interaction with Reglan. Please follow up with the following Doctors within 2 weeks of discharge from the hospital: - Dr. Zamarripa, GI doctor - Dr. Alvarez, your primary care doctor - Follow up with If you continue having abdominal pain, nausea, vomiting that is bloody or black in color, or bowel movements that are black or bloody, please come back to the emergency room immediately. Referrals: Augustine Zamarripa MD [Staff Physician] - 1 Week Kaci Alvarez MD [Primary Care Provider] - 1 Week Disposition: HOME - Home Medications Comprehensive Discharge Medication List: Ambulatory Orders Escitalopram Oxalate [Lexapro -] 10 mg PO DAILY 08/01/18 LORazepam [Ativan] 1 mg PO TID PRN MDD 2mg 08/01/18 Zolpidem Tartrate [Ambien] 10 mg PO HS PRN MDD 5mg 08/01/18 Gabapentin 300 mg PO TID 05/08/19 Hydrocortisone [Cortef] 10 mg PO HS #30 tablet 05/08/19 Hydrocortisone [Cortef] 20 mg PO AM #30 tablet 05/08/19 Metoclopramide HCl [Reglan] 10 mg PO Q6H #60 tablet 05/08/19 Metoprolol Tartrate 25 mg PO BID 05/08/19 Pantoprazole Sodium [Protonix -] 40 mg PO BID #60 tablet.ec 05/08/19 Sucralfate [Carafate -] 1 gm PO Q6H #120 tablet 05/08/19 This patient is new to me today: No Emergency Visit: Yes ED Registration Date: 05/04/19 Care time: The patient presented to the Emergency Department on the above date and was hospitalized for further evaluation of their emergent condition. Critical Care patient: No - Discharge Referral Referred to [facility] No ATTENDING PHYSICIAN STATEMENT I saw and evaluated the patient. I reviewed the resident's note and discussed the case with the resident. I agree with the resident's findings and plan as documented. SUBJECTIVE: OBJECTIVE: ASSESSMENT AND PLAN:
--- NOTE | 2019-05-08 19:15 | PN ---
Teaching Attending Note Name of Resident: Keyana Woodward ATTENDING PHYSICIAN STATEMENT I saw and evaluated the patient. I reviewed the resident's note and discussed the case with the resident. I agree with the resident's findings and plan as documented. SUBJECTIVE: Patient tolerated the diet well. c/o generalized pain. OBJECTIVE: Vital Signs Temperature 97.6 F 05/08/19 15:06 Pulse Rate 64 05/08/19 15:06 Respiratory Rate 18 05/08/19 15:06 Blood Pressure 117/75 05/08/19 15:06 O2 Sat by Pulse Oximetry (%) 95 05/08/19 09:00 GENERAL: The patient is awake, alert, and fully oriented, in no acute distress. HEAD: Normal with no signs of trauma. EYES: PERRL, extraocular movements intact, sclera anicteric, conjunctiva clear. ENT: Ears normal, oropharynx clear without exudates, moist mucous membranes. NECK: Trachea midline, full range of motion, supple. LUNGS: Breath sounds equal, clear to auscultation bilaterally, no wheezes, no crackles, no accessory muscle use. HEART: Regular rate and rhythm, S1, S2 without murmur, rub or gallop. ABDOMEN: Soft, NT, ND, +BS, no guarding, no rebound, no hepatosplenomegaly, no masses. EXTREMITIES: 2+ pulses, warm, well-perfused, no edema. NEUROLOGICAL: Cranial nerves II through XII grossly intact. Normal speech, gait not observed. PSYCH: Normal mood, normal affect. SKIN: Warm, dry, normal turgor, no rashes or lesions noted CBCD WBC 4.3 K/mm3 (4.0-10.0) 05/08/19 07:10 RBC 3.62 M/mm3 (3.60-5.2) 05/08/19 07:10 Hgb 10.8 GM/dL (10.7-15.3) 05/08/19 07:10 Hct 31.8 % (32.4-45.2) L 05/08/19 07:10 MCV 87.7 fl (80-96) 05/08/19 07:10 MCHC 33.9 g/dl (32.0-36.0) 05/08/19 07:10 RDW 15.4 % (11.6-15.6) 05/08/19 07:10 Plt Count 167 K/MM3 (134-434) 05/08/19 07:10 MPV 7.3 fl (7.5-11.1) L 05/08/19 07:10 CMP Sodium 137 mmol/L (136-145) 05/08/19 07:10 Potassium 3.2 mmol/L (3.5-5.1) L 05/08/19 07:10 Chloride 101 mmol/L (98-107) 05/08/19 07:10 Carbon Dioxide 28 mmol/L (21-32) 05/08/19 07:10 Anion Gap 8 MMOL/L (8-16) 05/08/19 07:10 BUN 15.2 mg/dL (7-18) 05/08/19 07:10 Creatinine 0.8 mg/dL (0.55-1.3) 05/08/19 07:10 Random Glucose 94 mg/dL (74-106) 05/08/19 07:10 Calcium 8.7 mg/dL (8.5-10.1) 05/08/19 07:10 Total Bilirubin 0.4 mg/dL (0.2-1) 05/07/19 05:30 AST 15 U/L (15-37) 05/07/19 05:30 ALT 12 U/L (13-61) L 05/07/19 05:30 Alkaline Phosphatase 83 U/L (45-117) 05/07/19 05:30 Total Protein 5.9 g/dl (6.4-8.2) L 05/07/19 05:30 Albumin 3.1 g/dl (3.4-5.0) L 05/07/19 05:30 CARDIAC ENZYMES Creatine Kinase 163 U/L (26-192) 05/04/19 16:52 Troponin I 0.02 ng/ml (0.00-0.05) 05/04/19 16:52 Home Medications Medication Instructions Recorded RX: Escitalopram Oxalate [Lexapro 10 mg PO DAILY 08/01/18 -] RX: LORazepam [Ativan] 1 mg PO TID PRN MDD 2mg 08/01/18 RX: Zolpidem Tartrate [Ambien] 10 mg PO HS PRN MDD 5mg 08/01/18 Hydrocortisone [Cortef] 10 mg PO HS #30 tablet 05/08/19 Hydrocortisone [Cortef] 20 mg PO AM #30 tablet 05/08/19 Metoclopramide HCl [Reglan] 10 mg PO Q6H #60 tablet 05/08/19 RX: Gabapentin 300 mg PO TID 05/08/19 RX: Metoprolol Tartrate 25 mg PO BID 05/08/19 RX: Pantoprazole Sodium [Protonix 40 mg PO BID #60 tablet.ec 05/08/19 -] Sucralfate [Carafate -] 1 gm PO Q6H #120 tablet 05/08/19 ASSESSMENT AND PLAN: Pain is a 69 y/o female with PMHx of adrenal insufficiency, b/l TKR, septic joint, hiatal hernia, anxiety,, insomnia, anemia, GI bleed, Treated Hep C, asthma, duodenal perforation , MVP, OA , and chronic pain, who presented with N/ V and abd pain # Acute intractable nausea and vomiting with abdominal pain improved s/p for EGD with findings: Retained food and fluid in stomach with reflux esophagitis with ulcer, Bx result is pending, Discussed with GI; Dr. Cleveland to continue Protonix 40mg po bid and reglan 10mg every 6hr, for total of 9 months, patient was explained that nursing home use of reglan will cause Tardive Dyskinesia ( the meaning of it was explained to the patient) and was suggested not to take Narcotics since can worsen the gastroperesis that the patient has. s/p MRCP report noted. Patient was discharged on protonix 40mg po bid and Reglan 10mg every 6hr for 2 weeks with follow up visit with Dr. Cleveland, also prescribed Carafate 1gm qid x30 days. # YOLANDA: due to volume depletion. resolved # H/o Adrenal insufficiency: as per Endocrine to continue with 20mg po am and 10mg at 2pm , with protonix 40mg po bid dc patient home, discussed with dr. cleveland and suggested to the patient not to take Narcotics due to worsening gastroparesis,, patient understands.
== END 2019-05-08 17:18 | disposition home or self-care (01) | DRG 392 ==
LOC: JER 18:49 → JERBED 05-04 01:38 → J7W 05-04 04:11
PROVIDERS: ADMIT Internal Medicine; ATTEND Internal Medicine
PROC: 0DD78ZX Extraction of Stomach, Pylorus, Via Natural or Artificial Opening Endoscopic, Diagnostic (ICD-10-PCS; 2019-05-07)
PROC: 0DD28ZX Extraction of Middle Esophagus, Via Natural or Artificial Opening Endoscopic, Diagnostic (ICD-10-PCS; 2019-05-07)
PROC: 0DB98ZX Excision of Duodenum, Via Natural or Artificial Opening Endoscopic, Diagnostic (ICD-10-PCS; 2019-05-07)
PROC: 0DD98ZX Extraction of Duodenum, Via Natural or Artificial Opening Endoscopic, Diagnostic (ICD-10-PCS; principal; 2019-05-07 10:15)
DX: K21.0 Gastro-esophageal reflux disease with esophagitis (principal); N17.9 Acute kidney failure, unspecified; E87.1 Hypo-osmolality and hyponatremia; E27.40 Unspecified adrenocortical insufficiency; K22.10 Ulcer of esophagus without bleeding; E83.42 Hypomagnesemia; E87.6 Hypokalemia; K31.84 Gastroparesis; K31.89 Other diseases of stomach and duodenum; R00.0 Tachycardia, unspecified; I95.9 Hypotension, unspecified; E86.0 Dehydration; I10 Essential (primary) hypertension; J44.9 Chronic obstructive pulmonary disease, unspecified; D64.9 Anemia, unspecified; F41.9 Anxiety disorder, unspecified; Z96.653 Presence of artificial knee joint, bilateral; Z87.891 Personal history of nicotine dependence; R68.0 Hypothermia, not associated with low environmental temperature; Z87.11 Personal history of peptic ulcer disease; I45.81 Long QT syndrome; Z86.19 Personal history of other infectious and parasitic diseases; Z86.010 Personal history of colon polyps; K83.8 Other specified diseases of biliary tract; K57.30 Diverticulosis of large intestine without perforation or abscess without bleeding; E83.41 Hypermagnesemia; E86.9 Volume depletion, unspecified
CPT/HCPCS: 36415; 71045-TC-FY; 74019-TC-FY; 74176-TC; 74181-TC; 80048; 80053; 80076; 81003; 82105; 82150; 82550; 82553; 82607; 82728; 82746; 82977; 83516; 83540; 83550; 83605; 83690; 83735; 84100; 84443; 84484; 85025; 85027; 85044; 86038; 86140; 86301; 86704; 86706; 86707; 86708; 86709; 86850; 86900; 86901; 87086; 87340; 87522; 88305-TC; 93005; 93010; 97116-GP; 97162-GP; 99283-25; J0131; J1644; J7030

== ENCOUNTER 2019-08-09 11:18 | Inpatient (IN) | payer OTHER ==
[2019-08-09] MEDS ORDERED: ACETAMINOPHEN 1000 MG/100 ML VIAL (NON FORMULARY) IVPB ONE (12:14)
--- NOTE | 2019-08-09 12:32 | PDOC ---
History of Present Illness - General Chief Complaint: Injury Stated Complaint: FALL Time Seen by Provider: 08/09/19 11:28 History Source: Patient Exam Limitations: No Limitations - History of Present Illness Initial Comments: 08/14/19 06:53 HPI: 69F PMH COPD, HTN, MVP BIBEMS after syncopal episode early in the AM when she got up to use the bathroom. Pt felt dizzy before falling but denies chest pain, palpitations, sob, n/v, warmth. +LOC, +headstrike. c/o occipital head pain and left wrist pain. Mild left sided back and hip pain. Mild knee pain. States pain is different than that of her arthritis. Denies f/c, dysuria, frequency, blood in stool, diarrhea. Normal eating and drinking. Pt not on AC. Poor historian. Unknown last tetanus shot. PMH as above; GIB, anemia, HCV s/p cure PCP Dr. Kaci VERDE Past History - Past Medical History Allergies/Adverse Reactions: Allergies Allergy/AdvReac Type Severity Reaction Status Date / Time No Known Drug Allergies Allergy Verified 08/09/19 11:39 tape AdvReac Uncoded 08/09/19 11:39 Home Medications: Ambulatory Orders Escitalopram Oxalate [Lexapro -] 10 mg PO DAILY 08/01/18 Gabapentin 300 mg PO TID 05/08/19 Hydrocortisone [Cortef] 10 mg PO HS #30 tablet 05/08/19 Hydrocortisone [Cortef] 20 mg PO AM #30 tablet 05/08/19 Metoprolol Tartrate 25 mg PO BID 05/08/19 Pantoprazole Sodium [Protonix -] 40 mg PO BID #60 tablet.ec 05/08/19 Sucralfate [Carafate -] 1 gm PO Q6H #120 tablet 05/08/19 LORazepam [Ativan] 0.5 mg PO TID PRN tablet MDD 0.5 08/12/19 Zolpidem Tartrate [Ambien] 5 mg PO HS PRN tablet MDD 5 08/12/19 oxyCODONE HCL [Roxicodone -] 10 mg PO Q8H PRN tablet MDD 30mg 08/12/19 Anemia: Yes Asthma: Yes Cancer: No Cardiac Disorders: Yes (Mitral Valve Prolapse) CVA: No COPD: Yes CHF: No Dementia: No Diabetes: No GI Disorders: Yes (GASTRIC ULCER) Disorders: No HTN: Yes Hypercholesterolemia: No Liver Disease: No Psychiatric Problems: Yes (anxiety) Seizures: No Thyroid Disease: No - Surgical History Abdominal Surgery: Yes (HERNIA REPAIR FOR RUPTURED HERNIA (2)) Appendectomy: Yes Cardiac Surgery: No Cholecystectomy: No Lung Surgery: No Neurologic Surgery: No Orthopedic Surgery: Yes (Bilateral knee replacement (3 in right left, 1 in left) ) - Reproductive History Cervical CA: No Dysfunctional Uterine Bleeding: No Ectopic : No Endometrial CA: No Polycystic Ovaries: No Tubal Ligation: No - Immunization History Td Vaccination: Yes Immunization Up to Date: Yes - Psycho Social/Smoking Cessation Hx Smoking Status: Yes Smoking History: Former smoker Years of Tobacco Use: 20 Have you smoked in the past 12 months: No Number of Cigarettes Smoked Daily: 2 If you are a former smoker, when did you quit?: 1989 Cigars Per Day: 0 Information on smoking cessation initiated: No 'Breaking Loose' booklet given: 06/17/13 Hx Alcohol Use: No Drug/Substance Use Hx: No Substance Use Type: None Hx Substance Use Treatment: No Review of Systems - Review of Systems Comments:: 08/14/19 06:53 ROS: CONSTITUTIONAL: Denies F / C HEENT: Endorses occipital headache. Endorse prodromal lightheadedness. Denies changes in vision / hearing RESP: Denies SOB, cough CARD: Denies chest pain, palpitations GI: Denies N / V / D, abdominal pain, bloody stool, inability to tolerate PO : Denies dysuria, frequency SKIN: Denies rashes NEURO: Denies numbness, tingling, weakness MSK: Endorses back pain, left wrist pain; mild left hip pain, b/l mild knee pain to touch *Physical Exam - Vital Signs Last Vital Signs Temp Pulse Resp BP Pulse Ox 97.9 F 83 18 97/66 96 08/09/19 11:20 08/09/19 11:20 08/09/19 11:20 08/09/19 11:20 08/09/19 11:20 - Physical Exam 08/14/19 06:53 PE: GEN: NAD, comfortable. AAOx3 HEENT: 1cm laceration midline occiput w/o active bleeding. no hematomas or obvious deformities. No granados sign or raccoon eyes. CN II-XII grossly intact, EOMI, PERRLA. No facial asymmetry. Normal voice. Supple neck w/ FROM. No midline TTP of the c-spine. CV: S1/S2, RRR, +systolic murmur LUNG: CTAB, no wheezes, crackles, rales, rhonchi. GI: soft, ndnt, +BS, no guarding, no rebound. EXTREMITIES: 2+ distal pulses. No LE edema. No obvious deformities of all extremities. No TTP of the elbows. +TTP of the left ulnar wrist. limited ROM of the left wrist 2/2 pain. Normal capillary refill b/l. symmetric sensation. Moving fingers well b/l. SKIN: warm, dry, normal turgor PSYCH: normal mood and affect NEURO: Moving all extremities well. 5/5 strength UE and LE except left wrist and hand where exam was limited by pain. Symmetric sensation. BACK: +TTP paraspinally govind. thoracic region. No obvious deformities, no step offs, no midline TTP. No signs of trauma. Procedures - Splinting Splint Location: Left: Wrist Pre-Proc Neuro Vasc Exam: normal Hand-Made Type: orthoglass Splint Type: Yes: Volar Post-Proc Neuro Vasc Exam: normal Sling: No Complications: No Post splint xray: No Progress: 08/09/19 17:40 volar splint applied to the left wrist in slight extension josseline bandage used to secure neurovascularally intact pre and post patient tolerated well - Laceration/Wound Repair Right Posterior Head Wound Length: to 2.5 cm Wound's Depth, Shape: superficial, linear Irrigated w/ Saline: Yes Betadine Prep: No Anesthesia: 1% Lidocaine Wound Debrided: minimal Wound Repaired With: Emanuel (5) Layer Closure: No Sterile Dressing Applied: No Splint Applied: No Sling Applied: No Progress: 08/09/19 17:10 Wound area cleansed with hydrogen peroxide approxiamtely 1cm linear laceration to the posterior scalp revealed; no active bleeding area was pressure irrigated with water approximately 1cc of lidocaine applied for local anesthetic 5 emanuel were placed with good approximation Patient tolerated procedure well ED Treatment Course - LABORATORY CBC & Chemistry Diagram: 08/12/19 06:22 08/12/19 06:22 - RADIOLOGY Radiology Studies Ordered: Category Date Time Status CERVICAL SPINE CT W/O CONTR [CT] Stat CT Scan 08/09/19 12:[address] WITHOUT CONTRAST [CT] Stat CT Scan 08/09/19 12:07 Ordered CHEST - PA [RAD] Stat Radiology 08/09/19 12:09 Ordered ELBOW-LEFT [RAD] Stat Radiology 08/09/19 12:09 Ordered HIP & PELVIS-LEFT [RAD] Stat Radiology 08/09/19 12:09 Ordered KNEE 2 POS-LEFT [RAD] Stat Radiology 08/09/19 12:09 Ordered KNEE 2 POS-RIGHT [RAD] Stat Radiology 08/09/19 12:09 Ordered WRIST W/HAND-LEFT* [RAD] Stat Radiology 08/09/19 12:09 Ordered Medical Decision Making - Medical Decision Making 08/09/19 12:15 MDM: 69F BIBEMS s/p syncopal episode; +LOC +headstrike. c/o posterior head pain, left wrist pain, mild left hip pain, b/l mild knee pain. +laceration, +TTP of the left wrist w/ limited ROM. DDx - arrhythmia, lytes abnormality, dehydration, anemia. unlikely infectious, embolic, or hemorrhagic cause. - CBC, CMP, Cardiac, Coags - UA - EKG - CT head and neck - CXR; XR L elbow, wrist, and hand; XR pelvis and L hip; XR b/l knees - cardiac monitoring - Pain Ctrl - Boostrix - laceration to be cleaned and likely repaired - likely tele-obs EKG 12:05 HR 78 MN 130 QRS 82 QTc 460 NSR 08/09/19 14:42 CT head and neck report reviewed - degenerative changes w/o acute findings 08/09/19 16:27 XRs are negative for acute pathology 08/09/19 17:13 scalp laceration repaired w/ 5 emanuel; see procedure note patient endorsed to inpatient attending; admitted to tele 08/09/19 17:41 volar splint applied to the left wrist; see procedure note // ADMITTED Discharge - Discharge Information Problems reviewed: Yes Clinical Impression/Diagnosis: Syncope Qualifiers: Syncope type: unspecified Qualified Code(s): R55 - Syncope and collapse Scalp laceration Qualifiers: Encounter type: initial encounter Qualified Code(s): S01.01XA - Laceration without foreign body of scalp, initial encounter Condition: Improved Disposition: HOME - Admission Yes - Follow up/Referral - Patient Discharge Instructions - Post Discharge Activity
[2019-08-09] MEDS ORDERED: DIPHTH,PERTUSS(ACELL),TET 0.5 ML DISP.SYRIN IM ONE ×2 (12:33→17:07)
[2019-08-09] MEDS ORDERED: SODIUM CHLORIDE 0.9% 500 ML INFUS.BAG IV ONE (14:27)
[2019-08-09 14:47] LABS: BASO % 1.1 % (0-2.0); EOS % 4.6 % (0-4.5); LYMPH % 27.8 % (8-40); MCH 27.7 pg (25.7-33.7); MCHC 32.2 g/dl (32.0-36.0); MEAN CELL VOLUME 86.1 fl (80-96); MEAN PLT VOLUME 7.4 fl (7.5-11.1); MONO % 7.4 % (3.8-10.2); NEUT % 59.1 % (42.8-82.8); PLATELET COUNT 317 K/MM3 (134-434); RDW 15.5 % (11.6-15.6); WHITE BLOOD COUNT 4.3 K/mm3 (4.0-10.0)
[2019-08-09 15:04] LABS: ALBUMIN 3.8 g/dl (3.4-5.0); ALK PHOS 114 U/L (45-117); ANION GAP 8 MMOL/L (8-16); BILIRUBIN,TOTAL 0.2 mg/dL (0.2-1); BLOOD UREA NITROGEN 15.6 mg/dL (7-18); CALCIUM 9.1 mg/dL (8.5-10.1); CHLORIDE 107 mmol/L (98-107); CO2 23 mmol/L (21-32); GLUCOSE,RANDOM 82 mg/dL (74-106); POTASSIUM 3.9 mmol/L (3.5-5.1); SGOT/AST 16 U/L (15-37); SGPT/ALT 12 U/L (13-61); SODIUM 139 mmol/L (136-145); TOT PROT 7.2 g/dl (6.4-8.2)
[2019-08-09] MEDS ORDERED: ACETAMINOPHEN 500 MG TABLET (FP) PO ONE (15:07)
[2019-08-09] MEDS ORDERED: ACETAMINOPHEN 325 MG TABLET (FP) ONE (15:14)
--- NOTE | 2019-08-09 15:48 | PDOC ---
Documentation entered by Luz Elena Moran SCRIBE, acting as scribe for Katty Fish MD. Katty Fish MD: This documentation has been prepared by the Luisa telles Adrianna, SCRIBE, under my direction and personally reviewed by me in its entirety. I confirm that the documentation accurately reflects all work, treatment, procedures, and medical decision making performed by me. Attending Attestation - Resident Resident Name: Coleman Paul - ED Attending Attestation I have performed the following: I have examined & evaluated the patient, The case was reviewed & discussed with the resident, I agree w/resident's findings & plan, Exceptions are as noted - HPI HPI: The patient is a 69 year old female, with a significant PMH of anemia, mitral valve prolapse, GI bleed, esophageal hernia repair, duodenal perforation, Hep C , asthma, HTN, COPD, and anxiety, who presents to the ED for evaluation s/p syncope. Patient reports feeling dizzy when going to use the bathroom this morning, followed by her falling and passing out. She endorses hitting her head during the fall. Patient complains of headache at the occipital region, left wrist pain, mild left-sided back/hip pain, and mild left knee pain. Patient is not on AC at this time. pt states she was getting up from the toilet, and suddenly had loc. Allergies: Tape, NKDA Surgical History: Esophageal hernia repair, bilateral total knee replacements, appendectomy Social History: Former smoker (quit 6 years ago). Denies EtOH or illicit drug use PCP: Dr. Kaci Alvarez Surgeon: Dr. Maurer ([facility]) 08/09/19 15:50 - Physicial Exam PE: 08/09/19 15:50 awake alert lungs very dry mucous membranes, crusted lips clear heart rrr no mrg abd soft nt nd ext wwp . no edema. right wrist ttp. positive snuff box tenderness. n/v intact. right knee small abrasion. FROM knee, ankle and hip. nuero alert oriented x 3. - Medical Decision Making 08/09/19 15:52 69 yo F s/p syncope after urination, dry mucous membranes on exam. post scalp small abrasion, no active bleeding. differential ; anemia dehydration, infection such as uti, pneumonai dysrthymia, head trauma. plan ct head. labs ekg xray wrist, right knee, cxr. pt will require iv hydration. 08/09/19 15:58 ct head negative c spine degenerative changes. labs normal. cxr negative. xrays wrist knee and hips negative. labs unremarkable. wlil admit to tele for syncope.
--- NOTE | 2019-08-09 18:31 | HP ---
CHIEF COMPLAINT:syncope PCP:Kaci Alvarez HISTORY OF PRESENT ILLNESS: Petra Lorenz is a 69F PMH COPD, HTN, MVP BIBEMS after syncopal episode early in the AM when she got up to use the bathroom. Pt felt dizzy before falling but denies chest pain, palpitations, sob, n/v, warmth. +LOC, +headstrike. c/o occipital head pain and left wrist pain. Mild left sided back and hip pain. Mild knee pain. pt seen in ED, pt denies dizziness currently, feels sore all over, pt reports she went to a [employer] party Sunday evening, had dinner and drank soda, denies use of alcohol. pt falling asleep during conversation. ER course was notable for: (1)laceration to occiptal area- 5 cally (2)CT spine, head no acute findings-degenerative (3) Recent Travel: PAST MEDICAL HISTORY: COPD, HTN, MVP PAST SURGICAL HISTORY: B/L knee replacement Hernia repair Appendectomy Social History: Smoking:former smoker Alcohol:denies Drugs: denies Allergies No Known Drug Allergies Allergy (Verified 08/09/19 11:39) tape Adverse Reaction (Uncoded 08/09/19 11:39) HOME MEDICATIONS: Home Medications Medication Instructions Recorded Escitalopram Oxalate [Lexapro -] 10 mg PO DAILY 08/01/18 LORazepam [Ativan] 1 mg PO TID PRN MDD 2mg 08/01/18 Zolpidem Tartrate [Ambien] 10 mg PO HS PRN MDD 5mg 08/01/18 Gabapentin 300 mg PO TID 05/08/19 Hydrocortisone [Cortef] 10 mg PO HS #30 tablet 05/08/19 Hydrocortisone [Cortef] 20 mg PO AM #30 tablet 05/08/19 Metoclopramide HCl [Reglan] 10 mg PO Q6H #60 tablet 05/08/19 Metoprolol Tartrate 25 mg PO BID 05/08/19 Pantoprazole Sodium [Protonix -] 40 mg PO BID #60 tablet.ec 05/08/19 Sucralfate [Carafate -] 1 gm PO Q6H #120 tablet 05/08/19 REVIEW OF SYSTEMS CONSTITUTIONAL: generalized pain, Absent: fever, chills, diaphoresis, generalized weakness, malaise, loss of appetite, weight change HEENT: Absent: rhinorrhea, nasal congestion, throat pain, throat swelling, difficulty swallowing, mouth swelling, ear pain, eye pain, visual changes CARDIOVASCULAR: Absent: chest pain, syncope, palpitations, irregular heart rate, lightheadedness , peripheral edema RESPIRATORY: Absent: cough, shortness of breath, dyspnea with exertion, orthopnea, wheezing, stridor, hemoptysis GASTROINTESTINAL: Absent: abdominal pain, abdominal distension, nausea, vomiting, diarrhea, constipation, melena, hematochezia GENITOURINARY: Absent: dysuria, frequency, urgency, hesitancy, hematuria, flank pain, genital pain MUSCULOSKELETAL: Absent: myalgia, arthralgia, joint swelling, back pain, neck pain SKIN: Absent: rash, itching, pallor HEMATOLOGIC/IMMUNOLOGIC: Absent: easy bleeding, easy bruising, lymphadenopathy, frequent infections ENDOCRINE: Absent: unexplained weight gain, unexplained weight loss, heat intolerance, cold intolerance NEUROLOGIC: Absent: headache, focal weakness or paresthesias, dizziness, unsteady gait, seizure, mental status changes, bladder or bowel incontinence PSYCHIATRIC: Absent: anxiety, depression, suicidal or homicidal ideation, hallucinations. PHYSICAL EXAMINATION Vital Signs - 24 hr 08/09/19 11:20 Temperature 97.9 F Pulse Rate 83 Respiratory 18 Rate Blood Pressure 97/66 O2 Sat by Pulse 96 Oximetry (%) GENERAL: Awake, alert, and fully oriented, in no acute distress. HEAD: laceration to occipital area, 5 calyl intact, no bleeding, Normal with no signs of trauma. EYES: Pupils equal, round and reactive to light, extraocular movements intact, sclera anicteric, conjunctiva clear. No lid lag. EARS, NOSE, THROAT: Ears normal, nares patent, oropharynx clear without exudates. Moist mucous membranes. NECK: Normal range of motion, supple without lymphadenopathy, JVD, or masses. LUNGS: Breath sounds equal, clear to auscultation bilaterally. No wheezes, and no crackles. No accessory muscle use. HEART: Regular rate and rhythm, normal S1 and S2 without murmur, rub or gallop. ABDOMEN: Soft, nontender, not distended, normoactive bowel sounds, no guarding, no rebound, no masses. No hepatomegaly or splenomegaly. MUSCULOSKELETAL: Normal range of motion at all joints. No bony deformities or tenderness. No CVA tenderness. UPPER EXTREMITIES: 2+ pulses, warm, well-perfused. No cyanosis. No clubbing. No peripheral edema. LOWER EXTREMITIES: 2+ pulses, warm, well-perfused. No calf tenderness. No peripheral edema. NEUROLOGICAL: Cranial nerves II-XII intact. Normal speech. Normal gait. PSYCHIATRIC: Cooperative. Good eye contact. Appropriate mood and affect. SKIN: Warm, dry, normal turgor, no rashes or lesions noted, normal capillary refill. Laboratory Results - last 24 hr 08/09/19 08/09/19 14:24 14:24 WBC 4.3 RBC 3.60 Hgb 10.0 L Hct 31.0 L MCV 86.1 MCH 27.7 MCHC 32.2 RDW 15.5 Plt Count 317 D MPV 7.4 L Absolute Neuts (auto) 2.5 Neutrophils % 59.1 Lymphocytes % 27.8 Monocytes % 7.4 Eosinophils % 4.6 H D Basophils % 1.1 D Nucleated RBC % 0 Sodium 139 Potassium 3.9 Chloride 107 Carbon Dioxide 23 Anion Gap 8 BUN 15.6 Creatinine 1.0 Est GFR (CKD-EPI)AfAm 66.10 Est GFR (CKD-EPI)NonAf 57.03 Random Glucose 82 Calcium 9.1 Total Bilirubin 0.2 AST 16 ALT 12 L Alkaline Phosphatase 114 Creatine Kinase 199 H Creatine Kinase Index 1.5 CK-MB (CK-2) 3.0 Troponin I < 0.02 Total Protein 7.2 Albumin 3.8 ASSESSMENT/PLAN: Petra Lorenz is a 69F PMH COPD, HTN, MVP admitted under observation for Admitting Diagnosis Syncope Chronic Conditions COPD HTN MVP Insomnia A/P: #Syncope with collapse -tele obs -IVF -Echo -cardio consult -EKG -XR L elbow, wrist, and hand; XR pelvis and L hip; XR b/l knees-no acute findings -hold ambien, ativan tonight -carotid doppler -no infectious process noted #s/p fall, +LOC, +Laceration -laceration to occiptal area -cally intact -keep area clean -CT head unremarkable #COPD -no use of inhalers #HTN #MVP -c/w home meds #Insomnia #Depression -c/w Lexapro -hold ambien Full Code PT eval in AM Visit type - Emergency Visit Emergency Visit: Yes ED Registration Date: 08/09/19 Care time: The patient presented to the Emergency Department on the above date and was hospitalized for further evaluation of their emergent condition. - New Patient This patient is new to me today: Yes Date on this admission: 08/09/19 - Critical Care Critical Care patient: No
[2019-08-09] MEDS: SUCRALFATE 1 GM TABLET (FP) PO SCH (18:35)
[2019-08-09] MEDS ORDERED: HEPARIN NA (PORCINE) 5,000 UNITS/ML 1ML VIAL ONE (23:11)
[2019-08-09] MEDS ORDERED: GABAPENTIN 100 MG CAPSULE (FP) ONE (23:11)
[2019-08-09] MEDS ORDERED: PANTOPRAZOLE 40 MG TABLET (FP) ONE (23:11)
[2019-08-09] MEDS ORDERED: METOPROLOL TARTRATE 25 MG TABLET (FP) ONE (23:11)
[2019-08-09] MEDS: HEPARIN NA (PORCINE) 5,000 UNITS/ML 1ML VIAL SQ SCH (23:21)
[2019-08-09] MEDS: METOPROLOL TARTRATE 25 MG TABLET (FP) PO SCH (23:21)
[2019-08-09] MEDS: PANTOPRAZOLE 40 MG TABLET (FP) PO SCH (23:22)
[2019-08-09] MEDS: GABAPENTIN 300 MG CAPSULE (FP) PO SCH (23:22)
[2019-08-09] MEDS: HYDROCORTISONE 10 MG TABLET PO SCH (23:37)
[2019-08-10] MEDS: SUCRALFATE 1 GM TABLET (FP) PO SCH ×4 (01:00→18:35)
[2019-08-10 01:50] VITALS: BMI 27.3
[2019-08-10] MEDS: GABAPENTIN 300 MG CAPSULE (FP) PO SCH ×3 (06:27→21:43)
[2019-08-10 06:43] LABS: BASO % 0.9 % (0-2.0); EOS % 4.7 % (0-4.5); HEMATOCRIT 26.6 % (32.4-45.2); HEMOGLOBIN 8.8 GM/dL (10.7-15.3); LYMPH % 34.8 % (8-40); MCH 28.1 pg (25.7-33.7); MCHC 33.1 g/dl (32.0-36.0); MEAN CELL VOLUME 84.8 fl (80-96); MEAN PLT VOLUME 7.3 fl (7.5-11.1); MONO % 8.9 % (3.8-10.2); NEUT % 50.7 % (42.8-82.8); PLATELET COUNT 271 K/MM3 (134-434); RBC 3.14 M/mm3 (3.60-5.2); RDW 15.5 % (11.6-15.6); WHITE BLOOD COUNT 3.8 K/mm3 (4.0-10.0)
[2019-08-10 07:03] LABS: ALBUMIN 3.1 g/dl (3.4-5.0); BILIRUBIN,TOTAL 0.3 mg/dL (0.2-1); BLOOD UREA NITROGEN 12.2 mg/dL (7-18); CREATININE 0.8 mg/dL (0.55-1.3); MAGNESIUM 2.1 mg/dL (1.8-2.4); POTASSIUM 4.2 mmol/L (3.5-5.1); TOT PROT 6.2 g/dl (6.4-8.2)
[2019-08-10] MEDS: HYDROCORTISONE 20 MG TABLET PO SCH (07:33)
[2019-08-10] MEDS: ESCITALOPRAM OXALATE 10 MG TABLET (FP) PO SCH (09:13)
[2019-08-10] MEDS: METOPROLOL TARTRATE 25 MG TABLET (FP) PO SCH ×2 (09:13→21:43)
[2019-08-10] MEDS: PANTOPRAZOLE 40 MG TABLET (FP) PO SCH ×2 (09:13→21:43)
[2019-08-10] MEDS: HEPARIN NA (PORCINE) 5,000 UNITS/ML 1ML VIAL SQ SCH ×2 (09:14→21:43)
--- NOTE | 2019-08-10 10:15 | EKG ---
Test Reason : Blood Pressure : / mmHG Vent. Rate : 078 BPM Atrial Rate : 078 BPM P-R Int : 130 ms QRS Dur : 082 ms QT Int : 404 ms P-R-T Axes : 049 -09 024 degrees QTc Int : 460 ms NORMAL SINUS RHYTHM NORMAL ECG WHEN COMPARED WITH ECG OF 04-MAY-2019 12:47, T WAVE INVERSION NO LONGER EVIDENT IN ANTERIOR LEADS QT HAS SHORTENED Confirmed by MARCIA WALLS, GIOVANNI ([id number]) on 08/10/2019 10:15:00 AM Referred By: Confirmed By:GIOVANNI KENNEDY MD
--- NOTE | 2019-08-10 12:54 | PN ---
Progress Note, Physician History of Present Illness: seen and examined at bedside. no events on telemetry. Patient states she tripped and fell over a shoe in her way and did not syncopize or lose consciousness. Denies nausea vomiting fever chills chest pain or SOB. Denies diarrhea or constipation. States she feels foggy. Doesn't think Ambien and Atvan she is on contributed to fall. - Current Medication List Current Medications: Active Medications Escitalopram Oxalate (Lexapro -) 10 mg PO DAILY [facility] Last Admin: 08/10/19 09:13 Dose: 10 mg Gabapentin (Neurontin -) 300 mg PO TID [facility] Last Admin: 08/10/19 06:27 Dose: 300 mg Heparin Sodium (Porcine) (Heparin -) 5,000 unit SQ BID [facility] Last Admin: 08/10/19 09:14 Dose: 5,000 unit Hydrocortisone (Cortef -) 10 mg PO HS [facility] Last Admin: 08/09/19 23:37 Dose: 10 mg Hydrocortisone (Cortef -) 20 mg PO AM [facility] Last Admin: 08/10/19 07:33 Dose: 20 mg Metoprolol Tartrate (Lopressor -) 25 mg PO BID [facility] Last Admin: 08/10/19 09:13 Dose: 25 mg Pantoprazole Sodium (Protonix -) 40 mg PO BID [facility] Last Admin: 08/10/19 09:13 Dose: 40 mg Sucralfate (Carafate -) 1 gm PO Q6H [facility] Last Admin: 08/10/19 11:39 Dose: 1 gm - Objective Vital Signs: Vital Signs Temperature 98.4 F 08/10/19 10:00 Pulse Rate 67 08/10/19 10:00 Respiratory Rate 20 08/10/19 10:00 Blood Pressure 131/75 08/10/19 10:00 O2 Sat by Pulse Oximetry (%) 99 08/10/19 08:50 Constitutional: Yes: No Distress, Calm Eyes: Yes: EOM Intact HENT: Yes: Other (back of head cally C/D/I) Cardiovascular: Yes: Regular Rate and Rhythm Respiratory: Yes: Other (crackles bilaterally) Gastrointestinal: Yes: Soft. No: Tenderness, Rebound Genitourinary: Yes: Other (no suprapubic tenderness). No: CVA Tenderness - Left , CVA Tenderness - Right Edema: Yes Edema: LLE: Trace, RLE: Trace Wound/Incision: Yes: Clean/Dry, Open to air Neurological: Yes: Alert, Oriented (oriented to place and self knows its july but thoght it was 1998 when i redirected her to 2019 she said thas what she meant), Cran Nerves II-XII Intact. No: Weakness Labs: CBC, BMP 08/10/19 05:15 08/10/19 05:15 Impression/Plan Impression/Plan: Petra Lorenz is a 69F PMH COPD, HTN, MVP admitted for syncope vs mechanical fall. Problem List: Syncope vs mechanical fall COPD HTN MVP Insomnia anxiety depression head laceration adrenal insufficiency Plan: so far all work up including Xrays telemetry cultures carotid duplex negative symptomatic UTI will start ceftriaxone continue tele f/u Cards consult-discussed with Dr. Garcia send UA/UCx echo ordered continue home meds metoprolol and hydrocortisone except ativan and ambien for now continue hydrocortisone for adrenal insufficiency BP controlled and not orthostatic PT Eval continue lexapro and gabapentin Visit type - Emergency Visit Emergency Visit: Yes ED Registration Date: 08/09/19 Care time: The patient presented to the Emergency Department on the above date and was hospitalized for further evaluation of their emergent condition. - New Patient This patient is new to me today: Yes Date on this admission: 08/10/19 - Critical Care Critical Care patient: No
[2019-08-10] MEDS ORDERED: CEFTRIAXONE 1,000 MG in DEXTROSE 5%-WATER - 50 ML IVPB SCH (13:00)
--- NOTE | 2019-08-10 14:18 | CON.CARD ---
Consult Consult Specialty:: cardiology Reason for Consultation:: syncope - History of Present Illness Chief Complaint: Pt A&OX3; denies chest pain, palpitations, dizziness, dyspnea. 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 Patient reports feeling dizzy when going to use the bathroom this morning, followed by her falling and passing out. She endorses hitting her head during the fall. Patient complains of headache at the occipital region, left wrist pain, mild left-sided back/hip pain, and mild left knee pain. Patient is not on AC at this time. pt states she was getting up from the toilet, and suddenly had loc (later, pt says she did not faint, but stumbled due to chronic knee problems). Allergies: Tape, NKDA Surgical History: Esophageal hernia repair, bilateral total knee replacements, appendectomy Social History: Former smoker (quit 6 years ago). Denies EtOH; smokes marijuana. PCP: Dr. Kaci Alvarez Surgeon: Dr. Maurer ([facility]) - History Source History Provided By: Patient, Medical Record Limitations to Obtaining History: Other (mildly lethargic) - Past Medical History MEDICAL ORDERLY: Yes: Other (anxiety) Cardio/Vascular: Yes: HTN Pulmonary: Yes: COPD Gastrointestinal: Yes: Diverticulosis, Hiatal Hernia (Large paraesophageal hernia s/p repair 06/12 at [facility]), Peptic Ulcer Disease (s/p surgical repair of a perforated ulcer), Other (colon [facility] 10/14) Hepatobiliary: Yes: Hepatitis C (treated) Reproductive: Yes: Postmenopausal ...: No Infectious Disease: Yes: MRSA, Other ( ? osteomyelitis) Psych: Yes: Anxiety Endocrine: Yes: Other (adrenal insufficiency) - Past Surgical History Past Surgical History: Yes: Appendectomy (open and complicated by postop infection), Breast Biopsy (bilateral benign), Colonoscopy, Hysterectomy (TAHBSO for fibroids), Joint Replacement (Ttl Knee replacement x 2 right knee with 2 right knee revisions, Ttl Left knee replacement. 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 History of Recent Travel: No Home Medications - Allergies Allergies/Adverse Reactions: Allergies Allergy/AdvReac Type Severity Reaction Status Date / Time No Known Drug Allergies Allergy Verified 08/09/19 11:39 tape AdvReac Uncoded 08/09/19 11:39 - Home Medications Home Medications: Ambulatory Orders Escitalopram Oxalate [Lexapro -] 10 mg PO DAILY 08/01/18 LORazepam [Ativan] 1 mg PO TID PRN MDD 2mg 08/01/18 Zolpidem Tartrate [Ambien] 10 mg PO HS PRN MDD 5mg 08/01/18 Gabapentin 300 mg PO TID 05/08/19 Hydrocortisone [Cortef] 10 mg PO HS #30 tablet 05/08/19 Hydrocortisone [Cortef] 20 mg PO AM #30 tablet 05/08/19 Metoclopramide HCl [Reglan] 10 mg PO Q6H #60 tablet 05/08/19 Metoprolol Tartrate 25 mg PO BID 05/08/19 Pantoprazole Sodium [Protonix -] 40 mg PO BID #60 tablet.ec 05/08/19 Sucralfate [Carafate -] 1 gm PO Q6H #120 tablet 05/08/19 Vital Signs: Vital Signs Temperature 98.4 F 08/10/19 10:00 Pulse Rate 67 08/10/19 10:00 Respiratory Rate 20 08/10/19 10:00 Blood Pressure 131/75 08/10/19 10:00 O2 Sat by Pulse Oximetry (%) 99 08/10/19 08:50 - Other Data Labs, Other Data: CBC, BMP 08/10/19 05:15 08/10/19 05:15 Troponin, BNP 08/09/19 14:24 Troponin I < 0.02 Troponin, BNP 08/09/19 14:24 Troponin I < 0.02 Problem List - Problems (1) History of bilateral knee replacement Assessment/Plan: unsteady gait. Hx falls; denies syncope. Code(s): Z96.653 - PRESENCE OF ARTIFICIAL KNEE JOINT, BILATERAL (2) COPD (chronic obstructive pulmonary disease) Code(s): J44.9 - CHRONIC OBSTRUCTIVE PULMONARY DISEASE, UNSPECIFIED Qualifiers: COPD type: unspecified COPD Qualified Code(s): J44.9 - Chronic obstructive pulmonary disease, unspecified (3) Fall Assessment/Plan: Described as syncope in ER, though pt now denies fainting during that episode ( and denies hx syncope). She says her knees (kay TKR) and subsequent MRSA resulted in gait disturbance, LE weakness, and have made her prone to falling. She is also a regular smoker of marijuana. TNI < 0.02 EKG: NSR; normal study. TSH WNL. Plan: Avoid dehydration. Orthostratic vital signs. ECHO for LVEF, valve status (hx aortic regurgitation, MVP). Physical therapy, evaluation of knees. Pt denies hx CAD/NV. She says she had a stress test relatively recently at her [employer] office. Code(s): W19.XXXA - UNSPECIFIED FALL, INITIAL ENCOUNTER (4) Hepatitis C virus infection cured after antiviral drug therapy Code(s): Z86.19 - PERSONAL HISTORY OF OTHER INFECTIOUS AND PARASITIC DISEASES (5) Perforated peptic ulcer Code(s): K27.5 - CHRONIC OR UNSP PEPTIC ULCER, SITE UNSP, WITH PERFORATION (6) Elevated HDL Assessment/Plan: HDL >100 mg/dL; LDL in 60s. Code(s): E78.89 - OTHER LIPOPROTEIN METABOLISM DISORDERS (7) Anemia Code(s): D64.9 - ANEMIA, UNSPECIFIED
[2019-08-10] MEDS ORDERED: PT OWN MED DRAWER 7, Y5N ONE (21:42)
[2019-08-10] MEDS: HYDROCORTISONE 10 MG TABLET PO SCH (21:43)
[2019-08-11] MEDS: SUCRALFATE 1 GM TABLET (FP) PO SCH ×5 (00:24→17:33)
[2019-08-11] MEDS: GABAPENTIN 300 MG CAPSULE (FP) PO SCH ×2 (05:26→13:07)
[2019-08-11] MEDS: HYDROCORTISONE 20 MG TABLET PO SCH (06:03)
[2019-08-11 06:58] LABS: BASO % 0.6 % (0-2.0); EOS % 2.7 % (0-4.5); HEMATOCRIT 26.3 % (32.4-45.2); HEMOGLOBIN 8.9 GM/dL (10.7-15.3); LYMPH % 27.2 % (8-40); MCH 28.4 pg (25.7-33.7); MCHC 33.9 g/dl (32.0-36.0); MEAN CELL VOLUME 83.9 fl (80-96); MEAN PLT VOLUME 7.2 fl (7.5-11.1); NEUT % 60.5 % (42.8-82.8); PLATELET COUNT 282 K/MM3 (134-434); RBC 3.14 M/mm3 (3.60-5.2); RDW 15.6 % (11.6-15.6); WHITE BLOOD COUNT 3.7 K/mm3 (4.0-10.0)
--- NOTE | 2019-08-11 10:16 | ECHO ---
Name: DERRICK ALFONSO Exam:Adult Echocardiogram Study Date: 08/11/2019 08:48 AM Age: 69 yrs Reason For Study: SYNCOPE Height: 65 in Weight: 160 lb BSA: 1.8 m2 MMode/2D Measurements & Calculations IVSd: 1.1 cm Ao root diam: 3.1 cm LVIDd: 3.9 cm LA dimension: 3.4 cm LVIDs: 2.8 cm ACS: 1.8 cm LVPWd: 1.2 cm EDV(Teich): 67.0 ml LVOT diam: 1.8 cm ESV(Teich): 28.3 ml RV S Arias: 14.9 cm/sec Doppler Measurements & Calculations MV E max arias: 94.3 cm/sec Ao V2 max: 202.1 cm/sec MV A max arias: 88.4 cm/sec Ao max P.3 mmHg MV E/A: 1.1 Ao V2 mean: 137.9 cm/sec MV dec time: 0.21 sec Ao mean P.6 mmHg Ao V2 VTI: 46.6 cm AI P1/2t: 754.5 msec DEMETRIS(V,D): 1.6 cm2 AI max arias: 326.8 cm/sec LV V1 max P.7 mmHg AI max P.0 mmHg LV V1 max: 119.0 cm/sec AI dec slope: 126.9 cm/sec2 MR max arias: 460.5 cm/sec TR max arias: 259.0 cm/sec MR max P.1 mmHg TR max P.0 mmHg PI end-d arias: 96.4 cm/sec Med Peak E' Arias: 6.1 cm/sec Med E/e': 15.4 Lat Peak E' Arias: 7.5 cm/sec Lat E/e': 12.6 Procedure A complete two-dimensional transthoracic echocardiogram was performed (2D, M-mode, Doppler and color flow Doppler). Left Ventricle The left ventricle is normal in size. Left ventricular systolic function is normal. Ejection Fraction = 60- 65%. Diastolic dysfunction, Grade II (pseudonormalization pattern). Ratio E/E'= 15. No regional wall motion abnormalities noted. Right Ventricle The right ventricle is normal size. The right ventricular systolic function is normal. RV systolic TD I is 15 cm/s. Atria The left atrial size is normal. Right atrial size is normal. Mitral Valve There is mild mitral annular calcification. There is mild mitral regurgitation. Tricuspid Valve The tricuspid valve is normal in structure and function. There is mild tricuspid regurgitation. Pulmo nary artery systolic pressure is at least 36 mmHg if RA pressure is asssumed 3 mmHg. Aortic Valve There is mild aortic sclerosis.;. Mild aortic regurgitation. Pulmonic Valve The pulmonic valve is not well visualized. Mild pulmonic valvular regurgitation. Great Vessels The aortic root is normal size. Pericardium/Pleura There is no pericardial effusion. Interpretation Summary The left ventricle is normal in size. Left ventricular systolic function is normal. No regional wall motion abnormalities noted. Ejection Fraction = 60-65%. Diastolic dysfunction, Grade II (pseudonormalization pattern). Ratio E/E'= 15 The right ventricular systolic function is normal. The left atrial size is normal. Right atrial size is normal. There is mild mitral annular calcification. There is mild mitral regurgitation. There is mild tricuspid regurgitation. Pulmonary artery systolic pressure is at least 36 mmHg if RA pressure is asssumed 3 mmHg There is mild aortic sclerosis. Mild aortic regurgitation. Mild pulmonic valvular regurgitation. There is no pericardial effusion. Stone Yates MD 08/11/2019 10:16 AM
[2019-08-11] MEDS ORDERED: PT OWN MED DRAWER 7, Y5N ONE ×2 (10:36→22:50)
[2019-08-11] MEDS: ESCITALOPRAM OXALATE 10 MG TABLET (FP) PO SCH (10:40)
[2019-08-11] MEDS: PANTOPRAZOLE 40 MG TABLET (FP) PO SCH ×2 (10:40→22:57)
[2019-08-11] MEDS: METOPROLOL TARTRATE 25 MG TABLET (FP) PO SCH ×2 (10:40→22:57)
[2019-08-11] MEDS: HEPARIN NA (PORCINE) 5,000 UNITS/ML 1ML VIAL SQ SCH ×2 (10:40→22:57)
[2019-08-11] MEDS ORDERED: ACETAMINOPHEN 325 MG TABLET (FP) PO ONE (11:57)
--- NOTE | 2019-08-11 12:17 | PN ---
Progress Note, Physician Chief Complaint: Events noted Not in distress History of Present Illness: Patient was seen and examined. Awake and alert. Chart was reviewed Does not remember syncopal episode, but currently denies chest pain, SOB or palpitations - Current Medication List Current Medications: Active Medications Escitalopram Oxalate (Lexapro -) 10 mg PO DAILY [facility] Last Admin: 08/11/19 10:40 Dose: 10 mg Gabapentin (Neurontin -) 300 mg PO TID [facility] Last Admin: 08/11/19 05:26 Dose: 300 mg Heparin Sodium (Porcine) (Heparin -) 5,000 unit SQ BID [facility] Last Admin: 08/11/19 10:40 Dose: 5,000 unit Hydrocortisone (Cortef -) 10 mg PO HS [facility] Last Admin: 08/10/19 21:43 Dose: 10 mg Hydrocortisone (Cortef -) 20 mg PO AM [facility] Last Admin: 08/11/19 06:03 Dose: 20 mg Metoprolol Tartrate (Lopressor -) 25 mg PO BID [facility] Last Admin: 08/11/19 10:40 Dose: 25 mg Pantoprazole Sodium (Protonix -) 40 mg PO BID [facility] Last Admin: 08/11/19 10:40 Dose: 40 mg Sucralfate (Carafate -) 1 gm PO Q6H [facility] Last Admin: 08/11/19 06:03 Dose: 1 gm - Objective Vital Signs: Vital Signs Temperature 98.1 F 08/11/19 05:46 Pulse Rate 66 08/11/19 05:46 Respiratory Rate 18 08/11/19 05:46 Blood Pressure 120/71 08/11/19 05:46 O2 Sat by Pulse Oximetry (%) 94 L 08/10/19 21:00 Eyes: Yes: PERRL HENT: Yes: Atraumatic Neck: Yes: Supple Cardiovascular: Yes: Regular Rate and Rhythm, S1, S2 Respiratory: Yes: CTA Bilaterally Gastrointestinal: Yes: Normal Bowel Sounds, Soft. No: Tenderness Edema: No Additional Findings/Remarks: Review of Systems Constitutional: denies: Chills or Fever Cardiovascular: denies: chest pain, SOB, palpitations Respiratory: denies: Cough or Sputum Production Gastrointestinal: denies: Nausea, Vomiting, Diarrhea, Constipation or Abdominal Pain Genitourinary: denies: Dysuria Musculoskeletal: denies: Joint Pain Neurological: denies: Dizziness or Headache Labs: CBC, BMP 08/11/19 05:35 08/10/19 05:15 Problem List - Problems (1) HTN (hypertension) Code(s): I10 - ESSENTIAL (PRIMARY) HYPERTENSION (2) Syncope Code(s): R55 - SYNCOPE AND COLLAPSE (3) Anemia Code(s): D64.9 - ANEMIA, UNSPECIFIED (4) History of bilateral knee replacement Code(s): Z96.653 - PRESENCE OF ARTIFICIAL KNEE JOINT, BILATERAL (5) COPD (chronic obstructive pulmonary disease) Code(s): J44.9 - CHRONIC OBSTRUCTIVE PULMONARY DISEASE, UNSPECIFIED Qualifiers: COPD type: unspecified COPD Qualified Code(s): J44.9 - Chronic obstructive pulmonary disease, unspecified (6) Status post repair of paraesophageal diaphragmatic hernia Code(s): Z98.890 - OTHER SPECIFIED POSTPROCEDURAL STATES; Z87.19 - PERSONAL HISTORY OF OTHER DISEASES OF THE DIGESTIVE SYSTEM Assessment/Plan 1. Syncope, ? etiology 2. History of MVP 3. ? PAF but currently no on anticoagulation 4. History of esophageal hernia repair and history of duodenal perforation 5. HTN 6. COPD PLAN: 1. Continue Metoprolol ER 25 mg QD 2. Echocardiography reviewed 3. Neurosurgery input to follow regarding cervical spine 4. DVT and GI prophylaxis 5. Bronchodilator Monitor on telemetry Further plans are to follow Stone Yates MD
[2019-08-11] MEDS ORDERED: LORazepam 0.5 MG TABLET PO PRN (13:56)
[2019-08-11] MEDS ORDERED: ZOLPIDEM TARTRATE 5 MG TABLET PO PRN (13:57)
--- NOTE | 2019-08-11 14:46 | CONSULT ---
Consult - text type - Consultation Consultation Note: NEUROSURGERY CONSULTATION Patient is a 69 year old female who presented to the [facility] ED after a fall where she tripped. She denies balance difficulties or loss of consciousness, although she did sustain an occipital laceration which was sutured in the ED. Head CT was unremarkable for traumatic pathology. Cervical spine CT demonstrates Cervical spondylosis with suggestion of C12 instability with widening of the C12 articular facets and soft tissue pannus which elevates the tectorial membrane and appears to efface the Ventral CSF space at the craniocervical junction with mild mass effect on the upper cervical cord. There are osteophytes and disc bulges which are worst at C45 and C56 where there are grade one spondylolistheses. The patient has mild numbness and tingling in the hands. It would be reasonable to evaluate further with MRI Cervical spine to include the craniocervical junction.
--- NOTE | 2019-08-11 16:30 | PN ---
Progress Note (short form) - Note Progress Note: Hospitalist Medicine Resting in bed. C/o pain in her R posterior neck, w/ radiation to the right shoulder. States she experienced mechanical fall, d/t instability concerning her R knee. Has had multiple sx on it. Vitals 08/11/19 14:00 Temperature 98.6 F Pulse Rate 67 Respiratory 20 Rate Blood Pressure 111/67 Physical Exam general:resting in bed , in NAD. pleasant HEENT: +cally over occipital area. moist MM neck: supple, pain with flexion, extension cardio: S1, S2, RRR. no r/m/g pulm: CTA b/l abdomen: obese, nontender, nondistended neuro: hedis abstractor 2-12 grossly intact LE: 2+ pulses, no edema. +R knee: vertical sx scar. crepitus Laboratory Tests 08/11/19 05:35 WBC 3.7 L Hgb 8.9 L Hct 26.3 L Plt Count 282 Microbiology UA : requested, ordered Imaging 08/09/19: CTH - moderate atrophy, no evidence of lesion or hemorrhage. moderate DJD C4-C5, mild broad-based disc bulge and bilateral uncovertebral hypertrophy, moderately narrowing the right foramen likely impinging the R C5 nerve root. C5- C6 moderate degenerative disc disease mainly on the left with mild mainly left uncovertebral hypertrophy moderately narrowing the left foramen likely impinging the left C6 nerve root. Mild emphysema 08/09/19: CXR: acute process not seen. healed fx deformity of the proximal L humerus w/ arthritic changes and partial resection of the distal L clavicle. 08/09/19: L Elbow XR: no fx or subluxation. 07/1419: L hand/wrist XR: wrist calcification, loss of bone density 08/09/19: hip, pelvis XR: no acute path appreciated. old R pubic rami fractures similar to those seen before on 05/04/2019 08/09/19: L knee XR: vascular calcifications, soft tissue calcifications, upper portion of the L patella is fragmented but looks old as if it were corticated. 08/09/19: R knee XR: knee replacement with old soft tissue calcifications and bone fragments. vascular calcifications. acute process not seen. 08/09/19: Carotid sono: mild intimal thickening and tiny plaques at the common carotid bifurcation/bulb, bilaterally without evidence of hemodynamically significant stenosis. 08/11/19: ECHO: LVSF normal, EF 60-65%, mild MR, TR. mild Assessment/Plan 69 y/o F with PMH COPD, HTN, MVP admitted for mechanical fall. #s/p fall; likely mechanical #R/o syncope -ECHO without acute abnormality, carotid (-) -tele monitoring -orthostatic (-) -likely 2/2 mechanical; f/u ortho eval of R knee -if d/t polypharmacy, sedative med dosing halved (ambien) -f/u UA -PT, gait training -Cardio: Dr. Garcia -Ortho: Dr. Ann #Cervical spondylosis w/osteophytes -f/u MRI c-spine -neurosx consulted: Dr. Donovan Pearson #COPD -not in exacerbation -not requiring 02 -started on duonebs RQID, ventolin PRN #Anxiety, insomnia -c/w ambien (dose halved), ativan (halved), roxicodone (halved) -on lexapro #Adrenal insufficiency -c/w solucortef AM, PM dosing #Radiculopathy, neuropathic pain -switched from gabapentin to lyrica 75mg BID #F/E/N not requiring IVF at this time continue to follow lytes na controlled diet #PPX DVT: hep sq #Dispo monitoring on tele pending neurosx, ortho recs
[2019-08-11] MEDS ORDERED: ALBUTEROL SO4 0.083% IH SOL 2.5 MG/3 ML VIAL.NEB. NEB PRN (16:53)
[2019-08-11] MEDS: ALBUTEROL SO4 2.5/IPRATROPIUM 0.5 INH SOL 3 ML VIAL.NEB. NEB SCH (20:18)
[2019-08-11] MEDS: oxyCODONE HCL 5 MG TABLET PO PRN (20:54)
[2019-08-11] MEDS: PREGABALIN 75 MG CAPSULE PO SCH (22:57)
[2019-08-11] MEDS: HYDROCORTISONE 10 MG TABLET PO SCH (22:58)
[2019-08-12] MEDS: SUCRALFATE 1 GM TABLET (FP) PO SCH ×3 (01:16→12:26)
[2019-08-12] MEDS: oxyCODONE HCL 5 MG TABLET PO PRN (05:55)
[2019-08-12] MEDS: HYDROCORTISONE 20 MG TABLET PO SCH (06:00)
[2019-08-12 06:48] LABS: BASO % 0.8 % (0-2.0); EOS % 3.5 % (0-4.5); HEMATOCRIT 25.6 % (32.4-45.2); HEMOGLOBIN 8.5 GM/dL (10.7-15.3); LYMPH % 33.8 % (8-40); MCHC 33.3 g/dl (32.0-36.0); MEAN CELL VOLUME 84.2 fl (80-96); MEAN PLT VOLUME 6.9 fl (7.5-11.1); MONO % 7.7 % (3.8-10.2); NEUT % 54.2 % (42.8-82.8); PLATELET COUNT 236 K/MM3 (134-434); RBC 3.04 M/mm3 (3.60-5.2); RDW 15.5 % (11.6-15.6)
--- NOTE | 2019-08-12 07:24 | PN ---
Progress Note (short form) - Note Progress Note: Chief Complaint: Events noted, notes reviewed, denies any chest discomfort, denies any dyspnea History of Present Illness: Seen and examined on telemetry. Events noted, notes reviewed, denies any chest discomfort, denies any dyspnea Echocardiography revealed normal left ventricular size and systolic function with estimated LVEF between 60-65%, grade II diastolic dysfunction, normal right ventricular size and systolic function, mild mitral valve regurgitation, mild aortic valve regurgitation, mild tricuspid valve regurgitation - Current Medication List Current Medications Albuterol Sulfate (Ventolin 0.083% Nebulizer Soln -) 1 amp NEB Q4H PRN PRN Reason: SHORT OF BREATH/WHEEZING Albuterol/Ipratropium (Duoneb -) 1 amp NEB RQID [facility] Last Admin: 08/11/19 20:18 Dose: 1 amp Escitalopram Oxalate (Lexapro -) 10 mg PO DAILY [facility] Last Admin: 08/11/19 10:40 Dose: 10 mg Heparin Sodium (Porcine) (Heparin -) 5,000 unit SQ BID [facility] Last Admin: 08/11/19 22:57 Dose: 5,000 unit Hydrocortisone (Cortef -) 10 mg PO HS [facility] Last Admin: 08/11/19 22:58 Dose: 10 mg Hydrocortisone (Cortef -) 20 mg PO AM [facility] Last Admin: 08/12/19 06:00 Dose: 20 mg Lorazepam (Ativan -) 0.5 mg PO TID PRN PRN Reason: ANXIETY Metoprolol Tartrate (Lopressor -) 25 mg PO BID [facility] Last Admin: 08/11/19 22:57 Dose: 25 mg Oxycodone HCl (Roxicodone -) 10 mg PO Q8H PRN PRN Reason: PAIN LEVEL 6-10 Last Admin: 08/12/19 05:55 Dose: 10 mg Pantoprazole Sodium (Protonix -) 40 mg PO BID [facility] Last Admin: 08/11/19 22:57 Dose: 40 mg Pregabalin (Lyrica -) 75 mg PO BID [facility] Last Admin: 08/11/19 22:57 Dose: 75 mg Sucralfate (Carafate -) 1 gm PO Q6H [facility] Last Admin: 08/12/19 05:55 Dose: 1 gm Zolpidem Tartrate (Ambien -) 5 mg PO HS PRN PRN Reason: INSOMNIA Last Admin: 08/11/19 22:58 Dose: 5 mg Review of Systems Constitutional: denies: Chills or Fever Cardiovascular: as noted above Respiratory: denies: Cough or Sputum Production Gastrointestinal: denies: Nausea, Vomiting, Diarrhea, Constipation or Abdominal Pain Genitourinary: denies: Dysuria Musculoskeletal: denies: Joint Pain Neurological: denies: Dizziness or Headache - Objective Vital Signs: Last Vital Signs Temp Pulse Resp BP Pulse Ox 97.9 F 63 20 149/87 97 08/12/19 02:00 08/12/19 02:00 08/12/19 02:00 08/12/19 02:00 08/11/19 21:00 Intake & Output 08/09/19 08/10/19 08/11/19 08/12/19 23:59 23:59 23:59 23:59 Intake Total 700 220 Balance 700 220 Weight 160 lb 164 lb Neck: Supple Negative JVD No Bruit Respiratory: Scattered Rhonchi Bilaterally Cardiovascular: S1 S2 Regular Rate Rhythm Gastrointestinal: Soft Benign Normal Bowel Sounds Ext: Negative Edema Labs: CBC, BMP 08/12/19 06:22 Hepatic Panel Total Bilirubin 0.3 mg/dL (0.2-1) 08/10/19 05:15 AST 15 U/L (15-37) 08/10/19 05:15 ALT 10 U/L (13-61) L 08/10/19 05:15 Alkaline Phosphatase 97 U/L (45-117) 08/10/19 05:15 Albumin 3.1 g/dl (3.4-5.0) L 08/10/19 05:15 Assessment/Plan ASSESSMENT: 1. Syncope etiology of which is to be determined 2. History of mitral valve redundancy/prolapse syndrome 3. History of questionable paroxysmal atrial fibrillation [id number] score of 2 , currently on no anticoagulation therapy 4. Hypertension 5. Degenerative cervical disc disease 6. History of chronic obstructive pulmonary disease 7. History of esophageal hernia repair PLAN: 1. Continue Toprol-XL 2. Extended ambulatory monitor/outpatient monitor is recommended for further evaluation of the above-noted presentation/syncope and in addition further evaluation of the above-noted questionable history of paroxysmal atrial fibrillation 3. Further cardiovascular evaluation is recommended including pharmacologic Lexiscan myocardial perfusion imaging study/outpatient testing 4. Patient can be discharged home from the cardiovascular point of view and advise to follow-up with her front end assistant/[facility] or in our office Ezio Galindo M.D.
[2019-08-12 07:25] LABS: BLOOD UREA NITROGEN 10.5 mg/dL (7-18); CALCIUM 9.2 mg/dL (8.5-10.1); CREATININE 0.8 mg/dL (0.55-1.3); PHOSPHOROUS 4.1 mg/dL (2.5-4.9)
[2019-08-12] MEDS: ALBUTEROL SO4 2.5/IPRATROPIUM 0.5 INH SOL 3 ML VIAL.NEB. NEB SCH (08:40)
[2019-08-12] MEDS: ESCITALOPRAM OXALATE 10 MG TABLET (FP) PO SCH (09:28)
[2019-08-12] MEDS: HEPARIN NA (PORCINE) 5,000 UNITS/ML 1ML VIAL SQ SCH (09:28)
[2019-08-12] MEDS: PREGABALIN 75 MG CAPSULE PO SCH (09:28)
[2019-08-12] MEDS: METOPROLOL TARTRATE 25 MG TABLET (FP) PO SCH (09:28)
[2019-08-12] MEDS: PANTOPRAZOLE 40 MG TABLET (FP) PO SCH (09:29)
[2019-08-12 10:26] VITALS: BP 120/68; PULSE 70; TEMP 97.9
--- NOTE | 2019-08-12 11:30 | DS ---
Physical Exam: SUBJECTIVE: Patient seen and examined at bedside. Ready to leave. Improved ambulation OBJECTIVE: Vital Signs Period Temp Pulse Resp BP Sys/Xiao Pulse Ox Last 24 Hr 97.4 F-98.6 F 63-73 18-20 103-149/59-87 97-98 Physical Exam general:resting in bed , in NAD. pleasant HEENT: +cally over occipital area. moist MM neck: supple, pain with flexion, extension cardio: S1, S2, RRR. no r/m/g pulm: CTA b/l abdomen: obese, nontender, nondistended neuro: interlocker 2-12 grossly intact LE: 2+ pulses, no edema. +R knee: vertical sx scar. crepitus LABS Laboratory Results - last 24 hr 08/12/19 08/12/19 06:22 06:22 WBC 3.0 L RBC 3.04 L Hgb 8.5 L Hct 25.6 L MCV 84.2 MCH 28.0 MCHC 33.3 RDW 15.5 Plt Count 236 MPV 6.9 L Absolute Neuts (auto) 1.6 Neutrophils % 54.2 Lymphocytes % 33.8 D Monocytes % 7.7 Eosinophils % 3.5 Basophils % 0.8 Nucleated RBC % 0 Sodium 140 Potassium 4.0 Chloride 108 H Carbon Dioxide 22 Anion Gap 9 BUN 10.5 Creatinine 0.8 Est GFR (CKD-EPI)AfAm 86.57 Est GFR (CKD-EPI)NonAf 74.70 Random Glucose 102 Calcium 9.2 Phosphorus 4.1 Magnesium 2.0 Imaging 08/09/19: CTH - moderate atrophy, no evidence of lesion or hemorrhage. moderate DJD C4-C5, mild broad-based disc bulge and bilateral uncovertebral hypertrophy, moderately narrowing the right foramen likely impinging the R C5 nerve root. C5- C6 moderate degenerative disc disease mainly on the left with mild mainly left uncovertebral hypertrophy moderately narrowing the left foramen likely impinging the left C6 nerve root. Mild emphysema 08/09/19: CXR: acute process not seen. healed fx deformity of the proximal L humerus w/ arthritic changes and partial resection of the distal L clavicle. 08/09/19: L Elbow XR: no fx or subluxation. 07/1419: L hand/wrist XR: wrist calcification, loss of bone density 08/09/19: hip, pelvis XR: no acute path appreciated. old R pubic rami fractures similar to those seen before on 05/04/2019 08/09/19: L knee XR: vascular calcifications, soft tissue calcifications, upper portion of the L patella is fragmented but looks old as if it were corticated. 08/09/19: R knee XR: knee replacement with old soft tissue calcifications and bone fragments. vascular calcifications. acute process not seen. 08/09/19: Carotid sono: mild intimal thickening and tiny plaques at the common carotid bifurcation/bulb, bilaterally without evidence of hemodynamically significant stenosis. 08/11/19: ECHO: LVSF normal, EF 60-65%, mild MR, TR. mild 08/12/19: MRI C-spine: normal signal intensity spinal cord, multilevel facet jt arthropathy. minimal degenerative anterolisthesis of C3 on C4, C4 on C5. no evidence of disc herniation HOSPITAL COURSE: Date of Admission:08/09/19 Date of Discharge: 08/12/19 69 y/o F with PMH COPD, HTN, MVP admitted for mechanical fall. #s/p fall; likely mechanical #R/o syncope -ECHO without acute abnormality, carotid (-) -tele monitoring; without acute events. for cardio f/u on d/c for holter monitoring -orthostatic (-) -likely 2/2 mechanical; ortho outpt f/u , per pt's request -if d/t polypharmacy, sedative med dosing halved (ambien) -PT, gait training -to have cally removed (head) by PCP, discussed w/ pt on d/c. #Cervical spondylosis w/osteophytes -MRI c-spine noted as above -neurosx consulted: Dr. Donovan Pearson; can cont w/ outpt f/u -rheum consulted for outpt f/u; Dr. Thao #COPD -not in exacerbation -not requiring 02 -started on duonebs RQID, ventolin PRN #Anxiety, insomnia -c/w ambien (dose halved), ativan (halved), roxicodone (halved) -on lexapro #Adrenal insufficiency -c/w solucortef AM, PM dosing #Radiculopathy, neuropathic pain -c/w gabapentin on d/c Minutes to complete discharge: 45 Discharge Summary Problems reviewed: Yes Reason For Visit: SYNCOPE AND COLLAPSE LACERATION OF HEAD FALL Current Active Problems Anemia (Acute) Fall (Acute) HTN (hypertension) (Acute) History of bilateral knee replacement (Acute) Condition: Improved - Instructions Diet, Activity, Other Instructions: You were in the hospital because you fell. While you were here, you were ruled out for a syncopal event (passing out). Your ECHO (picture of your heart)was normal, you were seen by a gasoline attendant and and evaluated. You improved and are being sent home. While you were here, you were also seen by a neurosurgeon and found to have problems with your cervical spine, osteophytes, and arthritis that may be triggering your symptoms. You can continue to follow up with him as an outpatient. Medications You have not been started on any new medications Please continue your old ones; however we recommend that you discuss with your primary care doctor about halving the doses of your ativan and ambien since these are sedating medications and can increase the occurrence of falls. We also recommend that you halve the dosage of your roxicodone, since this can cause constipation. Care Please be careful to avoid falls, and continue strengthening exercises at home. You can continue to use a walker at home, if you feel it is needed for your strength and mobility. Testing Cardiology team recommends you have the following testing done as an outpatient: -Extended ambulatory monitor/outpatient monitor -pharmacologic Lexiscan myocardial perfusion imaging study/outpatient testing Follow up appointments Please follow up with the following doctors upon your discharge: -Dr. Karolyn Alvarez - in 3-5 days to discuss your visit -Dr. Manpreet Pearson, the neurosurgeon who saw you in the hospital to follow up - 1 week -Dr. Dumont, an orthopedic doctor/surgeon - 1 week if you would like to follow up concerning your Right knee -Dr. Thao, a director of speech pathology - if you would like to discuss your R shoulder arthritis - 1 week -Dr. Galindo , a gasoline attendant that saw you in the hospital - 1 week to discuss above; need for outpatient ambulatory cardiac monitoring and stress test ; myocardial perfusion imaging study. Referrals: Ezio Galindo MD [Staff Physician] - 1 Week Truong Pearson MD, [facility] [Staff Physician] - 1 Week Armando Thao MD [Staff Physician] - 1 Week Stone Yates MD [Staff Physician] - 1 Week Coleman Dumont MD [Staff Physician] - 1 Week Kaci Alvarez MD [Primary Care Provider] - 08/15/19 Disposition: HOME - Home Medications Comprehensive Discharge Medication List: Ambulatory Orders Escitalopram Oxalate [Lexapro -] 10 mg PO DAILY 08/01/18 Gabapentin 300 mg PO TID 05/08/19 Hydrocortisone [Cortef] 10 mg PO HS #30 tablet 05/08/19 Hydrocortisone [Cortef] 20 mg PO AM #30 tablet 05/08/19 Metoprolol Tartrate 25 mg PO BID 05/08/19 Pantoprazole Sodium [Protonix -] 40 mg PO BID #60 tablet.ec 05/08/19 Sucralfate [Carafate -] 1 gm PO Q6H #120 tablet 05/08/19 LORazepam [Ativan] 0.5 mg PO TID PRN tablet MDD 0.5 08/12/19 Zolpidem Tartrate [Ambien] 5 mg PO HS PRN tablet MDD 5 08/12/19 oxyCODONE HCL [Roxicodone -] 10 mg PO Q8H PRN tablet MDD 30mg 08/12/19 This patient is new to me today: No Emergency Visit: No Critical Care patient: No - Discharge Referral Referred to [facility] No
== END 2019-08-12 13:02 | disposition home or self-care (01) | DRG 552 ==
LOC: JER 11:18 → JERBED 16:53 → J4W 08-10 01:28
PROVIDERS: ADMIT Internal Medicine; ATTEND Internal Medicine
PROC: 0HQ0XZZ Repair Scalp Skin, External Approach (ICD-10-PCS; principal; 2019-08-09)
DX: M47.22 Other spondylosis with radiculopathy, cervical region (principal); K27.7 Chronic peptic ulcer, site unspecified, without hemorrhage or perforation; S01.01XA Laceration without foreign body of scalp, initial encounter; R55 Syncope and collapse; J44.9 Chronic obstructive pulmonary disease, unspecified; G47.00 Insomnia, unspecified; D64.9 Anemia, unspecified; F41.8 Other specified anxiety disorders; I10 Essential (primary) hypertension; W19.XXXA Unspecified fall, initial encounter; Y93.9 Activity, unspecified; Y92.89 Other specified places as the place of occurrence of the external cause; Y99.9 Unspecified external cause status
CPT/HCPCS: 36415; 70450-TC; 71045-TC-FY; 72125-TC; 72141-TC; 73070-TC-LT-FY; 73110-TC-LT-FY; 73130-TC-LT-FY; 73523-TC-FY; 73560-TC-LT-FY; 73560-TC-RT-FY; 80048; 80053; 82550; 82553; 83735; 84100; 84484; 85025; 90715; 93005; 93010; 93306-TC; 93880-TC; 94640; 97116-GP; 97161-GP; 99283-25; J1644

== ENCOUNTER 2021-01-24 09:57 | Inpatient (IN) | payer OTHER ==
[2021-01-24] MEDS ORDERED: LACTATED RINGERS SOLUTION 1000 ML INFUS.BAG IV ONE ×2 (10:21→12:45)
[2021-01-24] MEDS ORDERED: ACETAMINOPHEN INJECTION 100 ML IVPB ONE (10:31)
[2021-01-24] MEDS ORDERED: ACETAMINOPHEN 1000 MG/100 ML VIAL (NON FORMULARY) IVPB ONE (10:31)
[2021-01-24 11:14] LABS: PH,URINE 5.5 (5.0-8.0); URINE APPEARANCE CLEAR; URINE BILIRUBIN NEGATIVE (NEGATIVE); URINE COLOR YELLOW; URINE GLUCOSE (UA) NEGATIVE (NEGATIVE); URINE KETONE NEGATIVE (NEGATIVE); URINE LEUK ESTERASE NEGATIVE (NEGATIVE); URINE NITRITE NEGATIVE (NEGATIVE); URINE PROTEIN NEGATIVE (NEGATIVE); URINE UROBILINOGEN 0.2 mg/dL (0.2-1.0)
[2021-01-24] MEDS ORDERED: VANCOMYCIN HCL 1,500 MG in DEXTROSE 5%-WATER - 500 ML IVPB ONE (11:35)
[2021-01-24] MEDS ORDERED: PIPERACILLIN/TAZOB 4.5 GM 4.5 GM in DEXTROSE 5%-WATER 100 ML IVPB ONE (11:35)
[2021-01-24 11:39] LABS: BASO % 0.7 % (0-2.0); HEMATOCRIT 28.8 % (32.4-45.2); LYMPH % 3.7 % (8-40); MCH 22.1 pg (25.7-33.7); MCHC 31.3 g/dl (32.0-36.0); MEAN CELL VOLUME 70.5 fl (80-96); MEAN PLT VOLUME 7.1 fl (7.5-11.1); MONO % 5.8 % (3.8-10.2); NEUT % 89.8 % (42.8-82.8); PLATELET COUNT 335 K/MM3 (134-434); RBC 4.09 M/mm3 (3.60-5.2); RDW 19.4 % (11.6-15.6)
[2021-01-24 11:48] LABS: INR 1.13 (0.83-1.09); PROTHROMBIN TIME (PATIENT) 13.6 SEC (9.7-13.0)
[2021-01-24 11:51] LABS: ACTIVATED PTT 28.5 SECONDS (25.2-36.5)
[2021-01-24 11:54] LABS: BLOOD UREA NITROGEN 20.7 mg/dL (7-18); CALCIUM 9.8 mg/dL (8.5-10.1)
[2021-01-24 11:57] LABS: CREATININE 1.5 mg/dL (0.55-1.3)
[2021-01-24 11:59] LABS: BILIRUBIN,TOTAL 0.5 mg/dL (0.2-1); LACTIC ACID 2.3 mmol/L (0.4-2.0); TOT PROT 7.4 g/dl (6.4-8.2)
[2021-01-24] MEDS ORDERED: AZITHROMYCIN IVPB 500 MG in DEXTROSE 5%-WATER - 250 ML IVPB ONE (14:25)
[2021-01-24] MEDS ORDERED: AZITHROMYCIN IVPB 500 MG/250 ML BAG IVPB ONE (14:50)
[2021-01-24] MEDS ORDERED: PANTOPRAZOLE 40 MG TABLET ONE (17:02)
[2021-01-24] MEDS: PANTOPRAZOLE 40 MG TABLET PO SCH (17:07)
[2021-01-24] MEDS: HEPARIN NA (PORCINE) 5,000 UNITS/ML 1ML VIAL SQ SCH (21:54)
[2021-01-25] MEDS ORDERED: SODIUM CHLORIDE 1,000 ML IV SCH (03:45)
[2021-01-25 08:06] LABS: SARS-CoV-2 NAA Not Detected (Not Detected)
[2021-01-25] MEDS: SODIUM CHLORIDE 1,000 ML IV SCH ×2 (10:04→17:36)
[2021-01-25] MEDS: HEPARIN NA (PORCINE) 5,000 UNITS/ML 1ML VIAL SQ SCH ×2 (10:07→22:56)
[2021-01-25] MEDS: PANTOPRAZOLE 40 MG TABLET PO SCH ×2 (10:57→22:58)
[2021-01-25] MEDS: BUDESONIDE/FORMETEROL FUMARATE 160/4.5 mcg INHALER IH SCH ×2 (11:30→22:59)
[2021-01-25] MEDS: METOCLOPRAMIDE HCL 10 MG TABLET (FP) PO SCH ×2 (11:30→17:36)
[2021-01-25] MEDS ORDERED: PT OWN MED DRAWER 7, Y5N ONE ×2 (12:26→21:28)
[2021-01-25] MEDS ORDERED: HYDROCORTISONE 20 MG TABLET PO ONE (13:17)
[2021-01-25 13:54] LABS: BASO % 0.8 % (0-2.0); EOS % 0.9 % (0-4.5); HEMOGLOBIN 7.2 GM/dL (10.7-15.3); LYMPH % 9.5 % (8-40); MCH 22.3 pg (25.7-33.7); MCHC 31.5 g/dl (32.0-36.0); MEAN CELL VOLUME 70.7 fl (80-96); MEAN PLT VOLUME 6.9 fl (7.5-11.1); MONO % 4.8 % (3.8-10.2); PLATELET COUNT 239 K/MM3 (134-434); RBC 3.25 M/mm3 (3.60-5.2); RDW 20.3 % (11.6-15.6); WHITE BLOOD COUNT 7.7 K/mm3 (4.0-10.0)
[2021-01-25 14:20] LABS: CALCIUM 8.9 mg/dL (8.5-10.1)
[2021-01-25 14:21] LABS: BLOOD UREA NITROGEN 12.7 mg/dL (7-18)
[2021-01-25 14:22] LABS: ALBUMIN 3.2 g/dl (3.4-5.0)
[2021-01-25 14:24] LABS: CREATININE 0.8 mg/dL (0.55-1.3)
[2021-01-25 14:25] LABS: BILIRUBIN,TOTAL 0.4 mg/dL (0.2-1)
[2021-01-25] MEDS: ZOLPIDEM TARTRATE 5 MG TABLET PO PRN (22:55)
[2021-01-25] MEDS: METOPROLOL TARTRATE 25 MG TABLET (FP) PO SCH (22:58)
[2021-01-25] MEDS: HYDROCORTISONE 10 MG TABLET PO SCH (22:58)
[2021-01-26] MEDS: METOCLOPRAMIDE HCL 10 MG TABLET (FP) PO SCH ×3 (07:08→18:45)
[2021-01-26 08:06] LABS: MCHC 31.8 g/dl (32.0-36.0); MEAN CELL VOLUME 69.2 fl (80-96); MEAN PLT VOLUME 7.4 fl (7.5-11.1); PLATELET COUNT 222 K/MM3 (134-434); RDW 19.8 % (11.6-15.6); WHITE BLOOD COUNT 5.1 K/mm3 (4.0-10.0)
[2021-01-26 08:18] LABS: CALCIUM 8.5 mg/dL (8.5-10.1)
[2021-01-26 08:19] LABS: BLOOD UREA NITROGEN 10.9 mg/dL (7-18)
[2021-01-26 08:22] LABS: CREATININE 0.7 mg/dL (0.55-1.3)
[2021-01-26 08:33] LABS: HEMOGLOBIN 6.4 GM/dL (10.7-15.3)
[2021-01-26 08:34] LABS: HEMATOCRIT 20.1 % (32.4-45.2)
[2021-01-26] MEDS ORDERED: PT OWN MED DRAWER 7, Y5N ONE ×2 (08:47→21:22)
[2021-01-26] MEDS ORDERED: ESCITALOPRAM OXALATE 20 MG TABLET PO SCH (10:00)
[2021-01-26] MEDS: HEPARIN NA (PORCINE) 5,000 UNITS/ML 1ML VIAL SQ SCH (10:03)
[2021-01-26] MEDS: METOPROLOL TARTRATE 25 MG TABLET (FP) PO SCH ×2 (10:03→21:46)
[2021-01-26] MEDS: HYDROCORTISONE 20 MG TABLET PO SCH (10:03)
[2021-01-26] MEDS: PANTOPRAZOLE 40 MG TABLET PO SCH ×2 (10:03→21:45)
[2021-01-26] MEDS: BUDESONIDE/FORMETEROL FUMARATE 160/4.5 mcg INHALER IH SCH ×2 (10:04→21:46)
[2021-01-26] MEDS ORDERED: IRON SUCROSE INJECTION 200 MG in SODIUM CHLORIDE 90 ML IVPB ONE (12:45)
[2021-01-26] MEDS: oxyCODONE HCL 5 MG TABLET PO PRN ×2 (13:48→21:49)
[2021-01-26] MEDS: HYDROCORTISONE 10 MG TABLET PO SCH (21:46)
[2021-01-26] MEDS: ZOLPIDEM TARTRATE 5 MG TABLET PO PRN (21:49)
[2021-01-27 06:55] LABS: HEMATOCRIT 24.8 % (32.4-45.2); HEMOGLOBIN 7.9 GM/dL (10.7-15.3); LYMPH % 19.7 % (8-40); MCH 22.9 pg (25.7-33.7); MCHC 31.8 g/dl (32.0-36.0); MEAN CELL VOLUME 72.1 fl (80-96); MEAN PLT VOLUME 7.2 fl (7.5-11.1); NEUT % 69.3 % (42.8-82.8); PLATELET COUNT 230 K/MM3 (134-434); RBC 3.43 M/mm3 (3.60-5.2); RDW 21.1 % (11.6-15.6); WHITE BLOOD COUNT 4.6 K/mm3 (4.0-10.0)
[2021-01-27] MEDS: HYDROCORTISONE 20 MG TABLET PO SCH (06:55)
[2021-01-27] MEDS: METOCLOPRAMIDE HCL 10 MG TABLET (FP) PO SCH ×3 (06:55→18:02)
[2021-01-27 07:23] LABS: CALCIUM 8.6 mg/dL (8.5-10.1)
[2021-01-27 07:24] LABS: BLOOD UREA NITROGEN 6.7 mg/dL (7-18)
[2021-01-27 07:27] LABS: CREATININE 0.7 mg/dL (0.55-1.3)
[2021-01-27 07:29] LABS: BILIRUBIN,TOTAL 0.7 mg/dL (0.2-1); TOT PROT 5.9 g/dl (6.4-8.2)
[2021-01-27] MEDS ORDERED: PT OWN MED DRAWER 7, Y5N ONE (09:16)
[2021-01-27 09:27] LABS: ANISOCYTOSIS 1+; MACROCYTOSIS 0; OVALOCYTE 1+; PLATELET ESTIMATE NORMAL; TARGET CELLS 1+; TEAR DROP CELLS 1+
[2021-01-27] MEDS: BUDESONIDE/FORMETEROL FUMARATE 160/4.5 mcg INHALER IH SCH ×3 (10:00→23:02)
[2021-01-27] MEDS: PANTOPRAZOLE 40 MG TABLET PO SCH ×2 (10:00→22:05)
[2021-01-27] MEDS: METOPROLOL TARTRATE 25 MG TABLET (FP) PO SCH ×2 (10:00→22:05)
[2021-01-27] MEDS: oxyCODONE HCL 5 MG TABLET PO PRN ×2 (14:10→22:10)
[2021-01-27] MEDS: HYDROCORTISONE 10 MG TABLET PO SCH (22:01)
[2021-01-27] MEDS: ZOLPIDEM TARTRATE 5 MG TABLET PO PRN (22:02)
[2021-01-28] VITALS: BMI 29.2
[2021-01-28] MEDS: HYDROCORTISONE 20 MG TABLET PO SCH (06:08)
[2021-01-28] MEDS: METOCLOPRAMIDE HCL 10 MG TABLET (FP) PO SCH ×2 (06:08→11:19)
[2021-01-28] MEDS ORDERED: IRON SUCROSE INJECTION 200 MG in SODIUM CHLORIDE 90 ML IVPB ONE (07:00)
[2021-01-28 07:18] LABS: BASO % 0.9 % (0-2.0); EOS % 2.7 % (0-4.5); HEMATOCRIT 26.9 % (32.4-45.2); HEMOGLOBIN 8.6 GM/dL (10.7-15.3); LYMPH % 23.4 % (8-40); MEAN CELL VOLUME 71.7 fl (80-96); MEAN PLT VOLUME 7.3 fl (7.5-11.1); MONO % 9.5 % (3.8-10.2); NEUT % 63.5 % (42.8-82.8); PLATELET COUNT 256 K/MM3 (134-434); RBC 3.76 M/mm3 (3.60-5.2); RDW 20.9 % (11.6-15.6); WHITE BLOOD COUNT 4.6 K/mm3 (4.0-10.0)
[2021-01-28] MEDS: oxyCODONE HCL 5 MG TABLET PO PRN ×3 (07:41→23:07)
[2021-01-28 07:47] LABS: CALCIUM 9.5 mg/dL (8.5-10.1)
[2021-01-28 07:48] LABS: BLOOD UREA NITROGEN 8.6 mg/dL (7-18)
[2021-01-28 07:50] LABS: CREATININE 0.8 mg/dL (0.55-1.3)
[2021-01-28] MEDS: MULTIVITAMINS (DAILY MVI) TABLET (FP) PO SCH (09:04)
[2021-01-28] MEDS: BUDESONIDE/FORMETEROL FUMARATE 160/4.5 mcg INHALER IH SCH ×2 (09:04→21:21)
[2021-01-28] MEDS: PANTOPRAZOLE 40 MG TABLET PO SCH ×2 (09:04→21:19)
[2021-01-28] MEDS: METOPROLOL TARTRATE 25 MG TABLET (FP) PO SCH ×2 (09:04→21:19)
[2021-01-28] MEDS: POLYETHYLENE GLYCOL 3350 119 GM BTL PO SCH ×2 (13:24→21:20)
[2021-01-28] MEDS: METOCLOPRAMIDE HCL INJECTION 10 MG/2 ML VIAL IVPUSH SCH ×2 (13:24→21:19)
[2021-01-28] MEDS: HYDROCORTISONE 10 MG TABLET PO SCH (21:19)
[2021-01-28] MEDS ORDERED: ZOLPIDEM TARTRATE 5 MG TABLET PO ONE (23:57)
[2021-01-29] MEDS: METOCLOPRAMIDE HCL INJECTION 10 MG/2 ML VIAL IVPUSH SCH ×4 (02:00→20:51)
[2021-01-29] MEDS: POLYETHYLENE GLYCOL 3350 119 GM BTL PO SCH ×3 (05:37→21:03)
[2021-01-29 07:45] LABS: BASO % 1.1 % (0-2.0); EOS % 3.3 % (0-4.5); HEMATOCRIT 28.8 % (32.4-45.2); HEMOGLOBIN 9.2 GM/dL (10.7-15.3); LYMPH % 24.8 % (8-40); MCH 22.8 pg (25.7-33.7); MCHC 31.8 g/dl (32.0-36.0); MEAN CELL VOLUME 71.6 fl (80-96); MEAN PLT VOLUME 6.8 fl (7.5-11.1); MONO % 12.8 % (3.8-10.2); PLATELET COUNT 272 K/MM3 (134-434); RBC 4.02 M/mm3 (3.60-5.2); RETICULOCYTES 2.18 % (0.5-1.5); WHITE BLOOD COUNT 4.4 K/mm3 (4.0-10.0)
[2021-01-29 08:10] LABS: BLOOD UREA NITROGEN 6.5 mg/dL (7-18); CALCIUM 9.3 mg/dL (8.5-10.1)
[2021-01-29 08:13] LABS: CREATININE 0.7 mg/dL (0.55-1.3)
[2021-01-29] MEDS: METOPROLOL TARTRATE 25 MG TABLET (FP) PO SCH ×2 (09:31→21:01)
[2021-01-29] MEDS: MULTIVITAMINS (DAILY MVI) TABLET (FP) PO SCH (09:31)
[2021-01-29] MEDS: oxyCODONE HCL 5 MG TABLET PO PRN ×3 (09:31→22:44)
[2021-01-29] MEDS: PANTOPRAZOLE 40 MG TABLET PO SCH ×2 (09:31→21:03)
[2021-01-29] MEDS: HYDROCORTISONE 20 MG TABLET PO SCH (09:32)
[2021-01-29] MEDS: BUDESONIDE/FORMETEROL FUMARATE 160/4.5 mcg INHALER IH SCH ×2 (11:58→22:48)
[2021-01-29] MEDS: Methylnaltrexone Bromide 12 MG/0.6 ML KIT SQ SCH (11:58)
[2021-01-29] MEDS: HYDROCORTISONE 10 MG TABLET PO SCH (21:02)
[2021-01-29] MEDS ORDERED: ZOLPIDEM TARTRATE 5 MG TABLET PO ONE (22:26)
[2021-01-30] MEDS: METOCLOPRAMIDE HCL INJECTION 10 MG/2 ML VIAL IVPUSH SCH ×5 (04:03→20:32)
[2021-01-30] MEDS: POLYETHYLENE GLYCOL 3350 119 GM BTL PO SCH ×3 (06:10→21:34)
[2021-01-30] MEDS: HYDROCORTISONE 20 MG TABLET PO SCH (06:12)
[2021-01-30] MEDS: oxyCODONE HCL 5 MG TABLET PO PRN ×3 (06:13→18:44)
[2021-01-30 07:22] LABS: BASO % 0.8 % (0-2.0); EOS % 1.7 % (0-4.5); HEMATOCRIT 27.5 % (32.4-45.2); HEMOGLOBIN 8.9 GM/dL (10.7-15.3); LYMPH % 23.1 % (8-40); MCH 23.3 pg (25.7-33.7); MCHC 32.5 g/dl (32.0-36.0); MEAN CELL VOLUME 71.8 fl (80-96); MONO % 11.2 % (3.8-10.2); NEUT % 63.2 % (42.8-82.8); PLATELET COUNT 285 K/MM3 (134-434); RBC 3.83 M/mm3 (3.60-5.2); RDW 21.2 % (11.6-15.6); WHITE BLOOD COUNT 6.3 K/mm3 (4.0-10.0)
[2021-01-30 08:07] LABS: ALBUMIN 3.3 g/dl (3.4-5.0); CALCIUM 9.2 mg/dL (8.5-10.1)
[2021-01-30 08:10] LABS: CREATININE 0.8 mg/dL (0.55-1.3)
[2021-01-30 08:11] LABS: BILIRUBIN,TOTAL 0.4 mg/dL (0.2-1); TOT PROT 6.2 g/dl (6.4-8.2)
[2021-01-30] MEDS ORDERED: PT OWN MED DRAWER 7, Y5N ONE ×2 (08:53→09:48)
[2021-01-30] MEDS ORDERED: PEG 3350/NA SULF BICARB CL/KCL 4000 ML SOLN.RECON PO ONE (09:00)
[2021-01-30] MEDS: PANTOPRAZOLE 40 MG TABLET PO SCH ×2 (09:45→21:32)
[2021-01-30] MEDS: MULTIVITAMINS (DAILY MVI) TABLET (FP) PO SCH (09:45)
[2021-01-30] MEDS: METOPROLOL TARTRATE 25 MG TABLET (FP) PO SCH ×2 (09:45→21:32)
[2021-01-30] MEDS: BUDESONIDE/FORMETEROL FUMARATE 160/4.5 mcg INHALER IH SCH ×2 (09:47→22:18)
[2021-01-30 10:59] LABS: ANISOCYTOSIS 1+; MACROCYTOSIS 1+; PLATELET ESTIMATE NORMAL
[2021-01-30] MEDS: Methylnaltrexone Bromide 12 MG/0.6 ML KIT SQ SCH ×2 (16:50→17:01)
[2021-01-30] MEDS ORDERED: BISACODYL 5 MG TABLET.DR (FP) PO ONE ×2 (17:00→18:00)
[2021-01-30] MEDS ORDERED: ZOLPIDEM TARTRATE 5 MG TABLET PO ONE (22:06)
[2021-01-30] MEDS: HYDROCORTISONE 10 MG TABLET PO SCH (22:17)
[2021-01-31] MEDS: oxyCODONE HCL 5 MG TABLET PO PRN ×3 (01:19→20:58)
[2021-01-31] MEDS: METOCLOPRAMIDE HCL INJECTION 10 MG/2 ML VIAL IVPUSH SCH ×4 (02:02→20:58)
[2021-01-31] MEDS: POLYETHYLENE GLYCOL 3350 119 GM BTL PO SCH ×3 (05:00→21:00)
[2021-01-31] MEDS: HYDROCORTISONE 20 MG TABLET PO SCH (06:11)
[2021-01-31 07:42] LABS: BASO % 0.9 % (0-2.0); EOS % 1.4 % (0-4.5); HEMATOCRIT 27.4 % (32.4-45.2); HEMOGLOBIN 8.8 GM/dL (10.7-15.3); LYMPH % 17.9 % (8-40); MCH 23.7 pg (25.7-33.7); MCHC 32.3 g/dl (32.0-36.0); MEAN CELL VOLUME 73.6 fl (80-96); NEUT % 70.8 % (42.8-82.8); PLATELET COUNT 304 K/MM3 (134-434); RBC 3.72 M/mm3 (3.60-5.2); RDW 21.4 % (11.6-15.6)
[2021-01-31 07:59] LABS: ALBUMIN 3.2 g/dl (3.4-5.0)
[2021-01-31 08:03] LABS: BLOOD UREA NITROGEN 8.8 mg/dL (7-18); CREATININE 0.8 mg/dL (0.55-1.3)
[2021-01-31 08:08] LABS: TOT PROT 6.1 g/dl (6.4-8.2)
[2021-01-31 08:11] LABS: BILIRUBIN,TOTAL 0.8 mg/dL (0.2-1)
[2021-01-31] MEDS ORDERED: IRON SUCROSE INJECTION 100 MG in SODIUM CHLORIDE 95 ML IVPB ONE (09:00)
[2021-01-31] MEDS: METOPROLOL TARTRATE 25 MG TABLET (FP) PO SCH ×2 (09:44→21:00)
[2021-01-31] MEDS: Methylnaltrexone Bromide 12 MG/0.6 ML KIT SQ SCH (09:44)
[2021-01-31] MEDS: PANTOPRAZOLE 40 MG TABLET PO SCH ×2 (09:44→21:00)
[2021-01-31] MEDS: MULTIVITAMINS (DAILY MVI) TABLET (FP) PO SCH (09:45)
[2021-01-31] MEDS: BUDESONIDE/FORMETEROL FUMARATE 160/4.5 mcg INHALER IH SCH ×2 (09:45→21:00)
[2021-01-31] MEDS ORDERED: FLUCONAZOLE 400 MG/NS 200 ML IVPB ONE (16:00)
[2021-01-31] MEDS ORDERED: NS IVPB SCH (16:30)
[2021-01-31] MEDS ORDERED: FLUCONAZOLE IVPB SCH (16:30)
[2021-01-31] MEDS ORDERED: FLUCONAZOLE 100 MG TABLET (UD) PO ONE (16:59)
[2021-01-31] MEDS ORDERED: PT OWN MED DRAWER 7, Y5N ONE (20:37)
[2021-01-31] MEDS: HYDROCORTISONE 10 MG TABLET PO SCH (21:01)
[2021-01-31] MEDS ORDERED: ZOLPIDEM TARTRATE 5 MG TABLET PO ONE (23:25)
[2021-02-01] MEDS: METOCLOPRAMIDE HCL INJECTION 10 MG/2 ML VIAL IVPUSH SCH ×3 (02:10→16:41)
[2021-02-01] MEDS: POLYETHYLENE GLYCOL 3350 119 GM BTL PO SCH ×2 (05:47→16:23)
[2021-02-01] MEDS: HYDROCORTISONE 20 MG TABLET PO SCH (06:51)
[2021-02-01] MEDS: oxyCODONE HCL 5 MG TABLET PO PRN (08:54)
[2021-02-01 09:15] LABS: BASO % 1.1 % (0-2.0); EOS % 2.2 % (0-4.5); HEMATOCRIT 29.2 % (32.4-45.2); HEMOGLOBIN 9.3 GM/dL (10.7-15.3); LYMPH % 23.7 % (8-40); MCH 23.5 pg (25.7-33.7); MCHC 31.9 g/dl (32.0-36.0); MEAN CELL VOLUME 73.7 fl (80-96); MEAN PLT VOLUME 7.2 fl (7.5-11.1); MONO % 8.7 % (3.8-10.2); NEUT % 64.3 % (42.8-82.8); PLATELET COUNT 301 K/MM3 (134-434); RBC 3.96 M/mm3 (3.60-5.2); WHITE BLOOD COUNT 4.9 K/mm3 (4.0-10.0)
[2021-02-01 09:34] LABS: CALCIUM 9.1 mg/dL (8.5-10.1)
[2021-02-01 09:35] LABS: ALBUMIN 3.2 g/dl (3.4-5.0)
[2021-02-01 09:38] LABS: CREATININE 0.8 mg/dL (0.55-1.3)
[2021-02-01 09:39] LABS: BILIRUBIN,TOTAL 0.4 mg/dL (0.2-1)
[2021-02-01 09:40] LABS: TOT PROT 6.1 g/dl (6.4-8.2)
[2021-02-01] MEDS ORDERED: FLUCONAZOLE 100 MG TABLET (UD) PO SCH (10:00)
[2021-02-01] MEDS: PANTOPRAZOLE 40 MG TABLET PO SCH (10:19)
[2021-02-01] MEDS: MULTIVITAMINS (DAILY MVI) TABLET (FP) PO SCH (10:19)
[2021-02-01] MEDS: BUDESONIDE/FORMETEROL FUMARATE 160/4.5 mcg INHALER IH SCH (10:19)
[2021-02-01] MEDS: METOPROLOL TARTRATE 25 MG TABLET (FP) PO SCH (10:20)
[2021-02-01 14:38] VITALS: BP 131/70; PULSE 66; TEMP 98.6
== END 2021-02-01 20:13 | disposition home or self-care (01) | DRG 369 ==
LOC: JER 09:57 → JERBED 10:39 → J7W 17:59
PROVIDERS: ADMIT Internal Medicine; ATTEND Internal Medicine
PROC: 30233N1 Transfusion of Nonautologous Red Blood Cells into Peripheral Vein, Percutaneous Approach (ICD-10-PCS; 2021-01-26)
PROC: 0DB68ZX Excision of Stomach, Via Natural or Artificial Opening Endoscopic, Diagnostic (ICD-10-PCS; 2021-01-28)
PROC: 0DC98ZZ Extirpation of Matter from Duodenum, Via Natural or Artificial Opening Endoscopic (ICD-10-PCS; 2021-01-28)
PROC: 0DB58ZX Excision of Esophagus, Via Natural or Artificial Opening Endoscopic, Diagnostic (ICD-10-PCS; 2021-01-31)
PROC: 0W3P8ZZ Control Bleeding in Gastrointestinal Tract, Via Natural or Artificial Opening Endoscopic (ICD-10-PCS; 2021-01-31)
PROC: 0DJD8ZZ Inspection of Lower Intestinal Tract, Via Natural or Artificial Opening Endoscopic (ICD-10-PCS; 2021-01-31)
PROC: 0DB98ZX Excision of Duodenum, Via Natural or Artificial Opening Endoscopic, Diagnostic (ICD-10-PCS; principal; 2021-01-31 11:00)
DX: B37.81 Candidal esophagitis (principal); N17.9 Acute kidney failure, unspecified; E87.2 Acidosis; A09 Infectious gastroenteritis and colitis, unspecified; E27.40 Unspecified adrenocortical insufficiency; K86.2 Cyst of pancreas; D62 Acute posthemorrhagic anemia; K31.819 Angiodysplasia of stomach and duodenum without bleeding; T18.198A Other foreign object in esophagus causing other injury, initial encounter; J44.9 Chronic obstructive pulmonary disease, unspecified; I10 Essential (primary) hypertension; I34.1 Nonrheumatic mitral (valve) prolapse; R11.2 Nausea with vomiting, unspecified; K22.70 Barrett's esophagus without dysplasia; R50.9 Fever, unspecified; K31.84 Gastroparesis; F41.8 Other specified anxiety disorders; Z96.653 Presence of artificial knee joint, bilateral; E86.0 Dehydration; G89.29 Other chronic pain; R00.0 Tachycardia, unspecified; D50.9 Iron deficiency anemia, unspecified; G47.00 Insomnia, unspecified; K64.8 Other hemorrhoids; K83.8 Other specified diseases of biliary tract; K21.9 Gastro-esophageal reflux disease without esophagitis; K57.90 Diverticulosis of intestine, part unspecified, without perforation or abscess without bleeding; Z86.19 Personal history of other infectious and parasitic diseases; Z87.11 Personal history of peptic ulcer disease; Z86.010 Personal history of colon polyps
CPT/HCPCS: 36415; 36430; 71045-TC-FY; 74177-TC; 76705-TC; 80048; 80053; 81003; 82105; 82150; 82378; 82728; 83036; 83540; 83550; 83605; 83690; 84484; 85025; 85027; 85045; 85610; 85730; 86140; 86301; 86850; 86900; 86901; 86922; 87040; 87086; 87804; 87899; 88305-TC; 93005; 93010; 97116-GP; 97162-GP; 99285-25; C9803; J0131; J1644; J1756; P9058; U0003; U0005

== ENCOUNTER 2021-02-11 09:37 | Inpatient (IN) | payer OTHER ==
[2021-02-11 11:04] LABS: BASO % 0.4 % (0-2.0); EOS % 3.9 % (0-4.5); HEMATOCRIT 30.2 % (32.4-45.2); HEMOGLOBIN 9.8 GM/dL (10.7-15.3); LYMPH % 24.4 % (8-40); MCH 24.3 pg (25.7-33.7); MCHC 32.4 g/dl (32.0-36.0); MEAN CELL VOLUME 75.1 fl (80-96); MEAN PLT VOLUME 6.7 fl (7.5-11.1); MONO % 9.4 % (3.8-10.2); NEUT % 61.9 % (42.8-82.8); PLATELET COUNT 359 10^3/uL (134-434); RBC 4.03 M/mm3 (3.60-5.2); RDW 27.2 % (11.6-15.6); WHITE BLOOD COUNT 3.5 K/mm3 (4.0-10.0)
[2021-02-11 11:28] LABS: CHLORIDE 108 mmol/L (98-107); SODIUM 139 mmol/L (136-145)
[2021-02-11 11:30] LABS: CALCIUM 9.6 mg/dL (8.5-10.1)
[2021-02-11 11:31] LABS: ALBUMIN 3.5 g/dl (3.4-5.0); ANION GAP 9 MMOL/L (8-16); BLOOD UREA NITROGEN 9.4 mg/dL (7-18); CO2 23 mmol/L (21-32); GLUCOSE,RANDOM 84 mg/dL (74-106); MAGNESIUM 1.9 mg/dL (1.8-2.4)
[2021-02-11 11:33] LABS: CREATININE 0.7 mg/dL (0.55-1.3); PHOSPHOROUS 3.6 mg/dL (2.5-4.9); SGOT/AST 30 U/L (15-37); SGPT/ALT 13 U/L (13-61)
[2021-02-11 11:35] LABS: BILIRUBIN,TOTAL 0.6 mg/dL (0.2-1); TOT PROT 6.5 g/dl (6.4-8.2)
[2021-02-11 11:37] LABS: ALK PHOS 75 U/L (45-117)
[2021-02-11 12:24] LABS: ANISOCYTOSIS 1+; MACROCYTOSIS 0; OVALOCYTE 1+; PLATELET ESTIMATE NORMAL; TARGET CELLS 1+; TEAR DROP CELLS 1+
[2021-02-11] MEDS ORDERED: SODIUM CHLORIDE 1,000 ML IV STA (13:40)
[2021-02-11 14:01] LABS: EPI CELLS 13 /uL (0-25.1); HYALINE CASTS 2 /uL (0-3.1); PH,URINE 6.5 (5.0-8.0); URINE APPEARANCE TURBID; URINE BACTERIA >9,000 /uL (0-1359); URINE BILIRUBIN NEGATIVE (NEGATIVE); URINE COLOR YELLOW; URINE GLUCOSE (UA) NEGATIVE (NEGATIVE); URINE KETONE NEGATIVE (NEGATIVE); URINE LEUK ESTERASE 3+ (NEGATIVE); URINE NITRITE POSITIVE (NEGATIVE); URINE PROTEIN TRACE (NEGATIVE); URINE RBC 72 /uL (0-23.9); URINE UROBILINOGEN 0.2 mg/dL (0.2-1.0); URINE WBC 6687 /uL (0-25.8)
[2021-02-11] MEDS ORDERED: CEFTRIAXONE 1 GM in DEXTROSE 5%-WATER - 100 ML IVPB ONE (14:12)
[2021-02-11] MEDS ORDERED: CEFTRIAXONE 1 GM/50 ML BAG ONE (14:17)
[2021-02-12 02:45] VITALS: BMI 28.5
[2021-02-12] MEDS ORDERED: cefTRIAXone SODIUM 1 GM VIAL ONE (08:58)
[2021-02-12] MEDS ORDERED: DEXTROSE 5%-WATER - 50 ML IVPB ONE (08:58)
[2021-02-12] MEDS: METOPROLOL TARTRATE 25 MG TABLET (FP) PO SCH ×2 (09:11→21:02)
[2021-02-12] MEDS: PANTOPRAZOLE 40 MG TABLET PO SCH (09:11)
[2021-02-12] MEDS: ENOXAPARIN NA (PORCINE) 40 MG/0.4 ML DISP.SYRIN SQ SCH (09:11)
[2021-02-12] MEDS: CEFTRIAXONE 1 GM in DEXTROSE 5%-WATER - 50 ML IVPB SCH (09:11)
[2021-02-12] MEDS: ACETAMINOPHEN 325 MG TABLET (FP) PO PRN ×3 (09:12→22:02)
[2021-02-12 10:10] LABS: SARS-CoV-2 NAA Not Detected (Not Detected)
[2021-02-12] MEDS ORDERED: LORazepam 0.5 MG TABLET PO PRN (17:59)
[2021-02-12] MEDS ORDERED: oxyCODONE HCL 5 MG TABLET PO PRN (18:04)
[2021-02-12] MEDS: GABAPENTIN 300 MG CAPSULE PO SCH (21:02)
[2021-02-12] MEDS: BUDESONIDE/FORMETEROL FUMARATE 160/4.5 mcg INHALER IH SCH (21:04)
[2021-02-12] MEDS ORDERED: MELATONIN 5 MG TABLETS PO SCH (22:00)
[2021-02-12] MEDS ORDERED: HYDROCORTISONE 10 MG TABLET PO SCH (22:00)
[2021-02-13] MEDS: GABAPENTIN 300 MG CAPSULE PO SCH ×2 (05:44→14:10)
[2021-02-13] MEDS: ACETAMINOPHEN 325 MG TABLET (FP) PO PRN (08:30)
[2021-02-13] MEDS ORDERED: PT OWN MED DRAWER 7, Y5N ONE (08:52)
[2021-02-13] MEDS ORDERED: DEXTROSE 5%-WATER - 50 ML IVPB ONE (08:53)
[2021-02-13] MEDS ORDERED: cefTRIAXone SODIUM 1 GM VIAL ONE (08:53)
[2021-02-13] MEDS: CEFTRIAXONE 1 GM in DEXTROSE 5%-WATER - 50 ML IVPB SCH (09:12)
[2021-02-13] MEDS: METOPROLOL TARTRATE 25 MG TABLET (FP) PO SCH (09:12)
[2021-02-13] MEDS: PANTOPRAZOLE 40 MG TABLET PO SCH (09:12)
[2021-02-13] MEDS: ENOXAPARIN NA (PORCINE) 40 MG/0.4 ML DISP.SYRIN SQ SCH (09:13)
[2021-02-13] MEDS: BUDESONIDE/FORMETEROL FUMARATE 160/4.5 mcg INHALER IH SCH (09:14)
[2021-02-13] MEDS ORDERED: HYDROCORTISONE 20 MG TABLET PO SCH (10:00)
[2021-02-13] MEDS ORDERED: ESCITALOPRAM OXALATE 10 MG TABLET PO SCH (10:00)
[2021-02-13 10:42] VITALS: PULSE 70
[2021-02-13 11:50] LABS: HEMATOCRIT 33.3 % (32.4-45.2); HEMOGLOBIN 10.6 GM/dL (10.7-15.3); MCH 23.8 pg (25.7-33.7); MCHC 31.7 g/dl (32.0-36.0); MEAN CELL VOLUME 75.1 fl (80-96); MEAN PLT VOLUME 6.7 fl (7.5-11.1); PLATELET COUNT 370 10^3/uL (134-434); RBC 4.43 M/mm3 (3.60-5.2)
[2021-02-13 12:13] LABS: CALCIUM 9.6 mg/dL (8.5-10.1)
[2021-02-13 12:14] LABS: ALBUMIN 3.5 g/dl (3.4-5.0)
[2021-02-13 12:17] LABS: CREATININE 0.8 mg/dL (0.55-1.3)
[2021-02-13 12:19] LABS: BILIRUBIN,TOTAL 0.4 mg/dL (0.2-1); TOT PROT 6.8 g/dl (6.4-8.2)
[2021-02-13] MEDS ORDERED: POTASSIUM CHLORIDE TABS 20 MEQ TABLET.ER (FP) PO ONE ×2 (13:52→13:53)
[2021-02-13] MEDS ORDERED: KCL 10 MEQ IVPB 10 MEQ/100 ML INFUS.BAG IVPB SCH (14:00)
[2021-02-13] MEDS ORDERED: amLODIPine BESYLATE 5 MG TABLET (FP) PO SCH (14:00)
[2021-02-13 14:23] VITALS: BP 134/78; TEMP 97.7
== END 2021-02-13 18:10 | disposition home health service (06) | DRG 690 ==
LOC: JER 09:37 → JERBED 15:07 → J8W 02-12 01:17
PROVIDERS: ATTEND Internal Medicine
DX: N39.0 Urinary tract infection, site not specified (principal); K52.1 Toxic gastroenteritis and colitis; I10 Essential (primary) hypertension; F41.8 Other specified anxiety disorders; G47.00 Insomnia, unspecified; G89.29 Other chronic pain; T47.2X5A Adverse effect of stimulant laxatives, initial encounter; F17.210 Nicotine dependence, cigarettes, uncomplicated; I34.1 Nonrheumatic mitral (valve) prolapse; J44.9 Chronic obstructive pulmonary disease, unspecified; B96.20 Unspecified Escherichia coli [E. coli] as the cause of diseases classified elsewhere; Z96.653 Presence of artificial knee joint, bilateral
CPT/HCPCS: 36415; 70450-TC; 71045-TC-FY; 72125-TC; 72170-TC-FY; 80053; 81003; 82962; 83605; 83735; 84100; 84484; 85025; 85027; 87086; 87186; 87324; 87449; 87804; 93005; 93010; 99285-25; C9803; U0003; U0005

== ENCOUNTER 2021-09-02 15:31 | Inpatient (IN) | payer OTHER ==
[2021-09-02 16:02] VITALS: BMI 30.1
[2021-09-02] MEDS ORDERED: SODIUM CHLORIDE 0.9% 500 ML INFUS.BAG IV ONE ×2 (16:25→17:10)
[2021-09-02 16:57] LABS: BASO % 1.1 % (0-2.0); EOS % 1.5 % (0-4.5); HEMATOCRIT 38.6 % (32.4-45.2); HEMOGLOBIN 12.7 GM/dL (10.7-15.3); LYMPH % 18.2 % (8-40); MCHC 32.9 g/dl (32.0-36.0); MEAN CELL VOLUME 85.1 fl (80-96); MONO % 7.4 % (3.8-10.2); NEUT % 71.8 % (42.8-82.8); PLATELET COUNT 382 10^3/uL (134-434); RBC 4.54 M/mm3 (3.60-5.2); RDW 16.1 % (11.6-15.6); VENOUS BASE EXCESS -6.1 mmol/L (-2-2); VENOUS O2 SATURATION 47.8 % (70-80); VENOUS PCO2 31.6 mmHg (38-52); VENOUS PH 7.374 (7.310-7.410); WHITE BLOOD COUNT 6.8 K/mm3 (4.0-10.0)
[2021-09-02 16:59] LABS: PH,URINE 5.5 (5.0-8.0); URINE APPEARANCE CLEAR; URINE BILIRUBIN NEGATIVE (NEGATIVE); URINE COLOR DK YELLOW; URINE GLUCOSE (UA) NEGATIVE (NEGATIVE); URINE KETONE TRACE (NEGATIVE); URINE LEUK ESTERASE NEGATIVE (NEGATIVE); URINE NITRITE NEGATIVE (NEGATIVE); URINE PROTEIN TRACE (NEGATIVE); URINE UROBILINOGEN 0.2 mg/dL (0.2-1.0)
[2021-09-02] MEDS ORDERED: ACETAMINOPHEN 1000 MG/100 ML BAG IVPB ONE (17:01)
[2021-09-02 17:06] LABS: INR 1.09 (0.83-1.09); PROTHROMBIN TIME (PATIENT) 12.5 SEC (9.7-13.0)
[2021-09-02 17:08] LABS: ACTIVATED PTT 26.8 SECONDS (25.2-36.5)
[2021-09-02] MEDS ORDERED: ACETAMINOPHEN INJECTION 100 ML IVPB ONE (17:08)
[2021-09-02 17:19] LABS: CHLORIDE 99 mmol/L (98-107); SODIUM 134 mmol/L (136-145)
[2021-09-02 17:21] LABS: CALCIUM 9.4 mg/dL (8.5-10.1)
[2021-09-02 17:22] LABS: ALBUMIN 3.9 g/dl (3.4-5.0); ANION GAP 13 MMOL/L (8-16); BLOOD UREA NITROGEN 38.1 mg/dL (7-18); CO2 22 mmol/L (21-32); GLUCOSE,RANDOM 86 mg/dL (74-106); MAGNESIUM 2.3 mg/dL (1.8-2.4)
[2021-09-02 17:25] LABS: CREATININE 1.9 mg/dL (0.55-1.3); SGOT/AST 16 U/L (15-37); SGPT/ALT 14 U/L (13-61)
[2021-09-02 17:26] LABS: BILIRUBIN,TOTAL 0.6 mg/dL (0.2-1)
[2021-09-02 17:27] LABS: TOT PROT 7.4 g/dl (6.4-8.2)
[2021-09-02 17:28] LABS: ALK PHOS 106 U/L (45-117)
[2021-09-02 17:30] LABS: N-TERMINAL BNP 1420.1 pg/ml (5-125)
[2021-09-02] MEDS ORDERED: POTASSIUM CHLORIDE TABS 20 MEQ TABLET.ER (FP) PO ONE ×2 (17:41→17:57)
[2021-09-02 20:03] LABS: PHOSPHOROUS 6.2 mg/dL (2.5-4.9)
[2021-09-02] MEDS ORDERED: ALBUTEROL SO4 HFA INHALER IH PRN (22:01)
[2021-09-02] MEDS: SODIUM CHLORIDE 0.9%/KCL 20 MEQ/1,000 ML INFUS.BAG IV SCH (23:36)
[2021-09-02] MEDS: METOPROLOL TARTRATE 25 MG TABLET (FP) PO SCH (23:37)
[2021-09-02] MEDS: NYSTATIN 100,000 UNIT/GM TOPICAL CREAM 15 GM TUBE TP SCH (23:37)
[2021-09-02] MEDS: BUDESONIDE/FORMETEROL FUMARATE 160/4.5 mcg INHALER IH SCH (23:37)
[2021-09-02] MEDS: HYDROCORTISONE 10 MG TABLET PO SCH (23:37)
[2021-09-03] MEDS ORDERED: MELATONIN 5 MG TABLETS PO PRN (01:38)
[2021-09-03] MEDS: oxyCODONE HCL 5 MG TABLET PO PRN ×3 (05:30→21:15)
[2021-09-03] MEDS: HEPARIN NA (PORCINE) 5,000 UNITS/ML 1ML VIAL SQ SCH ×3 (05:32→21:15)
[2021-09-03] MEDS ORDERED: PT OWN MED DRAWER 7, Y5N ONE ×5 (07:00→20:52)
[2021-09-03] MEDS: HYDROCORTISONE 20 MG TABLET PO SCH (07:02)
[2021-09-03 08:31] LABS: BASO % 0.8 % (0-2.0); EOS % 1.7 % (0-4.5); HEMATOCRIT 36.6 % (32.4-45.2); HEMOGLOBIN 12.1 GM/dL (10.7-15.3); MCH 28.3 pg (25.7-33.7); MCHC 33.1 g/dl (32.0-36.0); MEAN CELL VOLUME 85.5 fl (80-96); MEAN PLT VOLUME 6.9 fl (7.5-11.1); MONO % 5.7 % (3.8-10.2); NEUT % 77.8 % (42.8-82.8); PLATELET COUNT 342 10^3/uL (134-434); RBC 4.28 M/mm3 (3.60-5.2); RDW 15.7 % (11.6-15.6); WHITE BLOOD COUNT 4.6 K/mm3 (4.0-10.0)
[2021-09-03 08:56] LABS: CALCIUM 8.9 mg/dL (8.5-10.1)
[2021-09-03 08:57] LABS: ALBUMIN 3.5 g/dl (3.4-5.0); BLOOD UREA NITROGEN 31.1 mg/dL (7-18); MAGNESIUM 2.1 mg/dL (1.8-2.4)
[2021-09-03 09:00] LABS: CREATININE 1.2 mg/dL (0.55-1.3); PHOSPHOROUS 4.1 mg/dL (2.5-4.9)
[2021-09-03 09:01] LABS: BILIRUBIN,TOTAL 0.6 mg/dL (0.2-1); TOT PROT 6.8 g/dl (6.4-8.2)
[2021-09-03] MEDS: ESCITALOPRAM OXALATE 20 MG TABLET PO SCH (10:11)
[2021-09-03] MEDS: PANTOPRAZOLE 40 MG TABLET PO SCH (10:11)
[2021-09-03] MEDS: METOPROLOL TARTRATE 25 MG TABLET (FP) PO SCH ×2 (10:11→21:15)
[2021-09-03] MEDS: POTASSIUM CHLORIDE TABS 10 MEQ TABLET.ER (FP) PO SCH (10:11)
[2021-09-03] MEDS: BUDESONIDE/FORMETEROL FUMARATE 160/4.5 mcg INHALER IH SCH ×2 (10:12→21:20)
[2021-09-03] MEDS: NYSTATIN 100,000 UNIT/GM TOPICAL CREAM 15 GM TUBE TP SCH ×2 (10:13→21:16)
[2021-09-03] MEDS: HYDROCORTISONE 10 MG TABLET PO SCH ×4 (12:14→21:15)
[2021-09-03] MEDS: SODIUM CHLORIDE 0.9%/KCL 20 MEQ/1,000 ML INFUS.BAG IV SCH ×2 (17:05→21:14)
[2021-09-03] MEDS: ACETAMINOPHEN 325 MG TABLET (FP) PO PRN (19:48)
[2021-09-04] MEDS ORDERED: PT OWN MED DRAWER 7, Y5N ONE ×3 (05:17→21:35)
[2021-09-04] MEDS: HEPARIN NA (PORCINE) 5,000 UNITS/ML 1ML VIAL SQ SCH ×3 (05:18→21:38)
[2021-09-04] MEDS: HYDROCORTISONE 20 MG TABLET PO SCH (05:18)
[2021-09-04] MEDS: oxyCODONE HCL 5 MG TABLET PO PRN ×3 (05:25→21:38)
[2021-09-04] MEDS: POTASSIUM CHLORIDE TABS 10 MEQ TABLET.ER (FP) PO SCH (09:03)
[2021-09-04] MEDS: METOPROLOL TARTRATE 25 MG TABLET (FP) PO SCH ×2 (09:03→21:38)
[2021-09-04] MEDS: PANTOPRAZOLE 40 MG TABLET PO SCH (09:03)
[2021-09-04] MEDS: ESCITALOPRAM OXALATE 20 MG TABLET PO SCH (09:03)
[2021-09-04] MEDS: NYSTATIN 100,000 UNIT/GM TOPICAL CREAM 15 GM TUBE TP SCH ×2 (09:04→21:38)
[2021-09-04] MEDS: BUDESONIDE/FORMETEROL FUMARATE 160/4.5 mcg INHALER IH SCH ×2 (09:04→22:00)
[2021-09-04] MEDS: ACETAMINOPHEN 325 MG TABLET (FP) PO PRN ×2 (09:04→17:39)
[2021-09-04] MEDS: HYDROCORTISONE 10 MG TABLET PO SCH ×4 (09:06→21:37)
[2021-09-04] MEDS: SODIUM CHLORIDE 0.9%/KCL 20 MEQ/1,000 ML INFUS.BAG IV SCH ×2 (11:12→21:51)
[2021-09-05] MEDS ORDERED: PT OWN MED DRAWER 7, Y5N ONE ×2 (05:28→21:49)
[2021-09-05] MEDS: HEPARIN NA (PORCINE) 5,000 UNITS/ML 1ML VIAL SQ SCH ×3 (05:31→21:48)
[2021-09-05] MEDS: HYDROCORTISONE 20 MG TABLET PO SCH (05:31)
[2021-09-05] MEDS: oxyCODONE HCL 5 MG TABLET PO PRN ×3 (05:32→21:53)
[2021-09-05 09:13] LABS: HEMATOCRIT 31.4 % (32.4-45.2); HEMOGLOBIN 9.9 GM/dL (10.7-15.3); MCHC 31.4 g/dl (32.0-36.0); MEAN PLT VOLUME 7.4 fl (7.5-11.1); PLATELET COUNT 267 10^3/uL (134-434); RBC 3.52 M/mm3 (3.60-5.2); RDW 15.9 % (11.6-15.6); WHITE BLOOD COUNT 5.6 K/mm3 (4.0-10.0)
[2021-09-05 09:14] LABS: CALCIUM 8.9 mg/dL (8.5-10.1); CREATININE 0.9 mg/dL (0.55-1.3)
[2021-09-05] MEDS: POTASSIUM CHLORIDE TABS 10 MEQ TABLET.ER (FP) PO SCH (09:38)
[2021-09-05] MEDS: METOPROLOL TARTRATE 25 MG TABLET (FP) PO SCH ×2 (09:38→21:48)
[2021-09-05] MEDS: PANTOPRAZOLE 40 MG TABLET PO SCH (09:38)
[2021-09-05] MEDS: ESCITALOPRAM OXALATE 20 MG TABLET PO SCH (09:38)
[2021-09-05] MEDS: SODIUM CHLORIDE 0.9%/KCL 20 MEQ/1,000 ML INFUS.BAG IV SCH (09:40)
[2021-09-05] MEDS: HYDROCORTISONE 10 MG TABLET PO SCH ×4 (09:41→21:50)
[2021-09-05] MEDS: ACETAMINOPHEN 325 MG TABLET (FP) PO PRN (10:53)
[2021-09-05] MEDS: NYSTATIN 100,000 UNIT/GM TOPICAL CREAM 15 GM TUBE TP SCH ×2 (11:12→21:48)
[2021-09-05] MEDS: BUDESONIDE/FORMETEROL FUMARATE 160/4.5 mcg INHALER IH SCH ×2 (11:12→21:49)
[2021-09-06] MEDS ORDERED: oxyCODONE HCL 5 MG TABLET PO ONE (05:42)
[2021-09-06] MEDS ORDERED: PT OWN MED DRAWER 7, Y5N ONE (06:13)
[2021-09-06] MEDS: HEPARIN NA (PORCINE) 5,000 UNITS/ML 1ML VIAL SQ SCH ×3 (06:14→13:20)
[2021-09-06] MEDS: HYDROCORTISONE 20 MG TABLET PO SCH (06:14)
[2021-09-06] MEDS: METOPROLOL TARTRATE 25 MG TABLET (FP) PO SCH (09:09)
[2021-09-06] MEDS: POTASSIUM CHLORIDE TABS 10 MEQ TABLET.ER (FP) PO SCH (09:09)
[2021-09-06] MEDS: PANTOPRAZOLE 40 MG TABLET PO SCH (09:09)
[2021-09-06] MEDS: ESCITALOPRAM OXALATE 20 MG TABLET PO SCH (09:09)
[2021-09-06] MEDS: HYDROCORTISONE 10 MG TABLET PO SCH ×2 (09:10→13:17)
[2021-09-06] MEDS: BUDESONIDE/FORMETEROL FUMARATE 160/4.5 mcg INHALER IH SCH (09:12)
[2021-09-06] MEDS: NYSTATIN 100,000 UNIT/GM TOPICAL CREAM 15 GM TUBE TP SCH (09:12)
[2021-09-06 09:17] VITALS: BP 144/76; PULSE 62; TEMP 98.3
[2021-09-06] MEDS: ACETAMINOPHEN 325 MG TABLET (FP) PO PRN (12:46)
== END 2021-09-06 14:57 | disposition home health service (06) | DRG 392 ==
LOC: JER 15:31 → JERBED 16:22 → J7W 21:21
PROVIDERS: ADMIT Hospitalist; ATTEND Internal Medicine
DX: A08.4 Viral intestinal infection, unspecified (principal); E87.1 Hypo-osmolality and hyponatremia; N17.9 Acute kidney failure, unspecified; E87.3 Alkalosis; I10 Essential (primary) hypertension; E27.40 Unspecified adrenocortical insufficiency; J44.9 Chronic obstructive pulmonary disease, unspecified; E87.6 Hypokalemia; I95.1 Orthostatic hypotension; I34.1 Nonrheumatic mitral (valve) prolapse; F41.8 Other specified anxiety disorders; Z96.653 Presence of artificial knee joint, bilateral; R11.2 Nausea with vomiting, unspecified; R53.1 Weakness
CPT/HCPCS: 36415; 70450-TC; 71045-TC-FY; 72125-TC; 72128-TC; 73030-TC-RT-FY; 73060-TC-RT-FY; 73523-TC-FY; 76775-TC; 80048; 80053; 81003; 82550; 82570; 82803; 83605; 83690; 83735; 83880; 84100; 84300; 84443; 84484; 85025; 85027; 85610; 85730; 86850; 86900; 86901; 87040; 87086; 87804; 87807; 93005; 93010; 97116-GP; 97161-GP; 99285-25; C9803-CS; J1644; U0003; U0005

== ENCOUNTER 2021-09-28 13:34 | Inpatient (IN) | payer OTHER ==
[2021-09-28 14:16] VITALS: BMI 30.1
[2021-09-28 16:30] LABS: BASO % 1.5 % (0-2.0); EOS % 1.2 % (0-4.5); LYMPH % 21.1 % (8-40); MCH 27.7 pg (25.7-33.7); MCHC 32.5 g/dl (32.0-36.0); MEAN CELL VOLUME 85.4 fl (80-96); MEAN PLT VOLUME 6.7 fl (7.5-11.1); MONO % 10.9 % (3.8-10.2); NEUT % 65.3 % (42.8-82.8); PLATELET COUNT 328 10^3/uL (134-434); RBC 4.34 M/mm3 (3.60-5.2); RDW 16.6 % (11.6-15.6)
[2021-09-28 16:40] LABS: CALCIUM 9.9 mg/dL (8.5-10.1)
[2021-09-28 16:41] LABS: ALBUMIN 3.9 g/dl (3.4-5.0); BLOOD UREA NITROGEN 33.8 mg/dL (7-18)
[2021-09-28 16:44] LABS: CREATININE 1.5 mg/dL (0.55-1.3); PHOSPHOROUS 4.4 mg/dL (2.5-4.9)
[2021-09-28 16:46] LABS: BILIRUBIN,TOTAL 0.3 mg/dL (0.2-1); TOT PROT 7.6 g/dl (6.4-8.2)
[2021-09-28] MEDS ORDERED: SODIUM CHLORIDE 0.9% 500 ML INFUS.BAG IV ONE (17:20)
[2021-09-28] MEDS ORDERED: SODIUM CHLORIDE 1,000 ML IV SCH (21:00)
[2021-09-28] MEDS ORDERED: LOPERAMIDE HCL 2 MG CAPSULE PO PRN (21:01)
[2021-09-28] MEDS ORDERED: ACETAMINOPHEN 325 MG TABLET (FP) PO PRN (21:01)
[2021-09-28] MEDS ORDERED: HEPARIN NA (PORCINE) 5,000 UNITS/ML 1ML VIAL SQ SCH (22:00)
[2021-09-29] MEDS ORDERED: PANTOPRAZOLE SODIUM 40 MG VIAL IVPUSH SCH ×2 (02:50→10:00)
[2021-09-29] MEDS ORDERED: ONDANSETRON 4 MG/2 ML VIAL IVPUSH ONE (02:54)
[2021-09-29 03:43] LABS: HEMATOCRIT 33.1 % (32.4-45.2); MCH 28.2 pg (25.7-33.7); MCHC 33.4 g/dl (32.0-36.0); MEAN CELL VOLUME 84.4 fl (80-96); MEAN PLT VOLUME 6.8 fl (7.5-11.1); PLATELET COUNT 308 10^3/uL (134-434); RBC 3.92 M/mm3 (3.60-5.2); RDW 16.4 % (11.6-15.6); WHITE BLOOD COUNT 4.5 K/mm3 (4.0-10.0)
[2021-09-29] MEDS ORDERED: FAMOTIDINE 20 MG/50 ML IVPB 20 MG/50 ML MG IVPB SCH (03:45)
[2021-09-29 03:51] LABS: INR 1.07 (0.83-1.09); PROTHROMBIN TIME (PATIENT) 12.3 SEC (9.7-13.0)
[2021-09-29 04:05] LABS: BLOOD UREA NITROGEN 28.3 mg/dL (7-18)
[2021-09-29 04:09] LABS: CREATININE 1.1 mg/dL (0.55-1.3)
[2021-09-29] MEDS: ACETAMINOPHEN 1000 MG/100 ML BAG IVPB PRN ×3 (04:41→17:59)
[2021-09-29] MEDS ORDERED: TRIMETHOBENZAMIDE HCL 200MG/2ML INJ IM ONE (04:41)
[2021-09-29] MEDS: SODIUM CHLORIDE 1,000 ML IV SCH ×2 (04:42→20:39)
[2021-09-29 07:37] LABS: HEMATOCRIT 32.8 % (32.4-45.2); HEMOGLOBIN 10.7 GM/dL (10.7-15.3); MCH 28.1 pg (25.7-33.7); MCHC 32.6 g/dl (32.0-36.0); PLATELET COUNT 300 10^3/uL (134-434); RBC 3.81 M/mm3 (3.60-5.2); WHITE BLOOD COUNT 4.6 K/mm3 (4.0-10.0)
[2021-09-29 07:45] LABS: MAGNESIUM 1.9 mg/dL (1.8-2.4)
[2021-09-29 07:46] LABS: BLOOD UREA NITROGEN 26.1 mg/dL (7-18); CALCIUM 9.6 mg/dL (8.5-10.1)
[2021-09-29 07:47] LABS: ALBUMIN 3.6 g/dl (3.4-5.0)
[2021-09-29 07:48] LABS: CREATININE 1.1 mg/dL (0.55-1.3)
[2021-09-29 07:49] LABS: PHOSPHOROUS 3.9 mg/dL (2.5-4.9)
[2021-09-29 07:50] LABS: TOT PROT 6.7 g/dl (6.4-8.2)
[2021-09-29 07:51] LABS: BILIRUBIN,TOTAL 0.3 mg/dL (0.2-1)
[2021-09-29 10:38] LABS: RETICULOCYTES 1.21 % (0.5-1.5)
[2021-09-29 11:02] LABS: EPI CELLS 26 /uL (0-25.1); HYALINE CASTS 3 /uL (0-3.1); PH,URINE 5.5 (5.0-8.0); URINE APPEARANCE TURBID; URINE BACTERIA 7877 /uL (0-1359); URINE BILIRUBIN NEGATIVE (NEGATIVE); URINE COLOR YELLOW; URINE GLUCOSE (UA) NEGATIVE (NEGATIVE); URINE KETONE NEGATIVE (NEGATIVE); URINE LEUK ESTERASE 3+ (NEGATIVE); URINE NITRITE POSITIVE (NEGATIVE); URINE PROTEIN 1+ (NEGATIVE); URINE RBC 167 /uL (0-23.9); URINE UROBILINOGEN 0.2 mg/dL (0.2-1.0); URINE WBC 11600 /uL (0-25.8)
[2021-09-29] MEDS: HYDROCORTISONE SOD SUCCINATE 100 MG/2 ML VIAL IVPUSH SCH ×5 (11:21→20:22)
[2021-09-29] MEDS ORDERED: CEFTRIAXONE 1 GM in DEXTROSE 5%-WATER - 50 ML IVPB ONE (15:57)
[2021-09-29] MEDS ORDERED: ONDANSETRON 4 MG/2 ML VIAL IVPUSH PRN (16:01)
[2021-09-29] MEDS ORDERED: cefTRIAXone SODIUM 1 GM VIAL ONE (16:39)
[2021-09-29] MEDS ORDERED: DEXTROSE 5%-WATER - 50 ML IVPB ONE (16:40)
[2021-09-29 19:44] LABS: HEMOGLOBIN 10.2 GM/dL (10.7-15.3); MCH 27.9 pg (25.7-33.7); MCHC 31.9 g/dl (32.0-36.0); MEAN CELL VOLUME 87.6 fl (80-96); MEAN PLT VOLUME 7.3 fl (7.5-11.1); PLATELET COUNT 278 10^3/uL (134-434); RBC 3.66 M/mm3 (3.60-5.2); RDW 16.2 % (11.6-15.6); WHITE BLOOD COUNT 3.6 K/mm3 (4.0-10.0)
[2021-09-29 20:32] LABS: ANISOCYTOSIS 3+; MACROCYTOSIS 0; PLATELET ESTIMATE NORMAL; TEAR DROP CELLS 1+
[2021-09-30] MEDS: ZOLPIDEM TARTRATE 5 MG TABLET PO PRN ×2 (00:31→21:17)
[2021-09-30] MEDS: ACETAMINOPHEN 1000 MG/100 ML BAG IVPB PRN ×2 (05:09→18:52)
[2021-09-30 08:28] LABS: BASO % 0.5 % (0-2.0); EOS % 0.9 % (0-4.5); HEMOGLOBIN 9.4 GM/dL (10.7-15.3); LYMPH % 20.3 % (8-40); MCH 28.6 pg (25.7-33.7); MCHC 33.7 g/dl (32.0-36.0); MEAN CELL VOLUME 84.7 fl (80-96); MEAN PLT VOLUME 6.7 fl (7.5-11.1); MONO % 9.9 % (3.8-10.2); NEUT % 68.4 % (42.8-82.8); PLATELET COUNT 247 10^3/uL (134-434); RDW 15.9 % (11.6-15.6); WHITE BLOOD COUNT 4.4 K/mm3 (4.0-10.0)
[2021-09-30] MEDS: SODIUM CHLORIDE 1,000 ML IV SCH (08:43)
[2021-09-30 08:47] LABS: CALCIUM 8.9 mg/dL (8.5-10.1)
[2021-09-30 08:48] LABS: ALBUMIN 3.1 g/dl (3.4-5.0); BLOOD UREA NITROGEN 13.8 mg/dL (7-18)
[2021-09-30 08:50] LABS: BILIRUBIN,DIRECT 0.1 mg/dL (0.0-0.2)
[2021-09-30 08:51] LABS: CREATININE 0.9 mg/dL (0.55-1.3)
[2021-09-30 08:52] LABS: BILIRUBIN,TOTAL 0.4 mg/dL (0.2-1)
[2021-09-30] MEDS: HYDROCORTISONE SOD SUCCINATE 100 MG/2 ML VIAL IVPUSH SCH ×5 (10:00→21:10)
[2021-09-30] MEDS ORDERED: PANTOPRAZOLE SODIUM 40 MG VIAL IVPUSH SCH (10:00)
[2021-09-30] MEDS ORDERED: DEXTROSE 5%-WATER - 50 ML IVPB ONE (12:02)
[2021-09-30] MEDS ORDERED: cefTRIAXone SODIUM 1 GM VIAL ONE (12:02)
[2021-09-30] MEDS: CEFTRIAXONE 1 GM in DEXTROSE 5%-WATER - 50 ML IVPB SCH (12:05)
[2021-09-30] MEDS: PANTOPRAZOLE 40 MG TABLET PO SCH (12:08)
[2021-09-30] MEDS ORDERED: IRON SUCROSE INJECTION 200 MG in SODIUM CHLORIDE 90 ML IVPB ONE (15:00)
[2021-10-01 08:51] LABS: BASO % 0.1 % (0-2.0); EOS % 0.1 % (0-4.5); HEMATOCRIT 29.6 % (32.4-45.2); HEMOGLOBIN 9.8 GM/dL (10.7-15.3); LYMPH % 17.5 % (8-40); MCH 27.8 pg (25.7-33.7); MCHC 33.1 g/dl (32.0-36.0); MEAN PLT VOLUME 6.9 fl (7.5-11.1); MONO % 7.2 % (3.8-10.2); NEUT % 75.1 % (42.8-82.8); PLATELET COUNT 275 10^3/uL (134-434); RBC 3.52 M/mm3 (3.60-5.2); WHITE BLOOD COUNT 5.2 K/mm3 (4.0-10.0)
[2021-10-01 09:12] LABS: BLOOD UREA NITROGEN 10.6 mg/dL (7-18)
[2021-10-01 09:16] LABS: CREATININE 0.8 mg/dL (0.55-1.3)
[2021-10-01] MEDS ORDERED: DEXTROSE 5%-WATER - 50 ML IVPB ONE (09:24)
[2021-10-01] MEDS ORDERED: cefTRIAXone SODIUM 1 GM VIAL ONE (09:24)
[2021-10-01] MEDS: ACETAMINOPHEN 500 MG TABLET (FP) PO PRN ×2 (09:25→14:42)
[2021-10-01] MEDS: PANTOPRAZOLE 40 MG TABLET PO SCH (09:26)
[2021-10-01] MEDS: CEFTRIAXONE 1 GM in DEXTROSE 5%-WATER - 50 ML IVPB SCH (09:26)
[2021-10-01] MEDS: HYDROCORTISONE SOD SUCCINATE 100 MG/2 ML VIAL IVPUSH SCH ×6 (09:27→21:05)
[2021-10-01] MEDS: oxyCODONE HCL 5 MG TABLET PO PRN ×3 (10:14→21:07)
[2021-10-01] MEDS: ZOLPIDEM TARTRATE 5 MG TABLET PO PRN (21:08)
[2021-10-02] MEDS: oxyCODONE HCL 5 MG TABLET PO PRN ×3 (04:59→18:35)
[2021-10-02 08:17] LABS: BASO % 0.3 % (0-2.0); EOS % 0.2 % (0-4.5); HEMATOCRIT 31.2 % (32.4-45.2); HEMOGLOBIN 10.3 GM/dL (10.7-15.3); LYMPH % 24.4 % (8-40); MCH 27.9 pg (25.7-33.7); MCHC 32.9 g/dl (32.0-36.0); MEAN CELL VOLUME 84.9 fl (80-96); MEAN PLT VOLUME 7.1 fl (7.5-11.1); NEUT % 66.1 % (42.8-82.8); PLATELET COUNT 254 10^3/uL (134-434); RBC 3.68 M/mm3 (3.60-5.2); RDW 15.7 % (11.6-15.6); WHITE BLOOD COUNT 4.7 K/mm3 (4.0-10.0)
[2021-10-02 08:33] LABS: BLOOD UREA NITROGEN 14.3 mg/dL (7-18); CALCIUM 9.4 mg/dL (8.5-10.1)
[2021-10-02 08:37] LABS: CREATININE 0.9 mg/dL (0.55-1.3)
[2021-10-02] MEDS: HYDROCORTISONE SOD SUCCINATE 100 MG/2 ML VIAL IVPUSH SCH ×2 (09:17→09:30)
[2021-10-02] MEDS: PANTOPRAZOLE 40 MG TABLET PO SCH (09:31)
[2021-10-02] MEDS: ACETAMINOPHEN 500 MG TABLET (FP) PO PRN (16:59)
[2021-10-03] MEDS: ACETAMINOPHEN 500 MG TABLET (FP) PO PRN ×4 (00:40→18:37)
[2021-10-03] MEDS: oxyCODONE HCL 5 MG TABLET PO PRN ×4 (00:41→18:36)
[2021-10-03 08:51] LABS: BASO % 0.9 % (0-2.0); EOS % 1.3 % (0-4.5); HEMATOCRIT 33.2 % (32.4-45.2); HEMOGLOBIN 11.2 GM/dL (10.7-15.3); LYMPH % 38.1 % (8-40); MCH 28.4 pg (25.7-33.7); MCHC 33.7 g/dl (32.0-36.0); MEAN CELL VOLUME 84.4 fl (80-96); MEAN PLT VOLUME 6.5 fl (7.5-11.1); NEUT % 50.7 % (42.8-82.8); PLATELET COUNT 268 10^3/uL (134-434); RBC 3.93 M/mm3 (3.60-5.2); RDW 15.7 % (11.6-15.6); WHITE BLOOD COUNT 4.6 K/mm3 (4.0-10.0)
[2021-10-03 09:06] LABS: BLOOD UREA NITROGEN 17.8 mg/dL (7-18); CALCIUM 9.2 mg/dL (8.5-10.1)
[2021-10-03] MEDS ORDERED: HYDROCORTISONE SOD SUCCINATE 100 MG/2 ML VIAL IVPUSH ONE (10:00)
[2021-10-03] MEDS: PANTOPRAZOLE 40 MG TABLET PO SCH (10:08)
[2021-10-03] MEDS ORDERED: POTASSIUM CHLORIDE TABS 10 MEQ TABLET.ER (FP) PO ONE ×2 (16:55→22:00)
[2021-10-03] MEDS: HYDROCORTISONE 10 MG TABLET PO SCH (22:15)
[2021-10-04] MEDS: oxyCODONE HCL 5 MG TABLET PO PRN ×4 (00:39→20:08)
[2021-10-04] MEDS: ACETAMINOPHEN 500 MG TABLET (FP) PO PRN ×4 (00:40→20:09)
[2021-10-04 08:44] LABS: BASO % 0.5 % (0-2.0); EOS % 0.9 % (0-4.5); HEMATOCRIT 34.8 % (32.4-45.2); HEMOGLOBIN 11.8 GM/dL (10.7-15.3); MCH 28.7 pg (25.7-33.7); MCHC 33.9 g/dl (32.0-36.0); MEAN CELL VOLUME 84.8 fl (80-96); MEAN PLT VOLUME 6.8 fl (7.5-11.1); MONO % 7.1 % (3.8-10.2); NEUT % 71.5 % (42.8-82.8); PLATELET COUNT 294 10^3/uL (134-434); RDW 15.9 % (11.6-15.6); WHITE BLOOD COUNT 5.7 K/mm3 (4.0-10.0)
[2021-10-04 10:12] LABS: CALCIUM 9.3 mg/dL (8.5-10.1)
[2021-10-04 10:13] LABS: ALBUMIN 3.5 g/dl (3.4-5.0); BLOOD UREA NITROGEN 17.5 mg/dL (7-18)
[2021-10-04 10:16] LABS: CREATININE 0.9 mg/dL (0.55-1.3)
[2021-10-04 10:18] LABS: BILIRUBIN,TOTAL 0.3 mg/dL (0.2-1); TOT PROT 6.4 g/dl (6.4-8.2)
[2021-10-04] MEDS: PANTOPRAZOLE 40 MG TABLET PO SCH (10:43)
[2021-10-04] MEDS: METOCLOPRAMIDE HCL INJECTION 10 MG/2 ML VIAL IVPUSH SCH ×3 (10:44→21:33)
[2021-10-04] MEDS: HYDROCORTISONE 10 MG TABLET PO SCH ×2 (11:36→21:52)
[2021-10-05] MEDS: METOCLOPRAMIDE HCL INJECTION 10 MG/2 ML VIAL IVPUSH SCH ×2 (03:31→08:39)
[2021-10-05] MEDS: ACETAMINOPHEN 500 MG TABLET (FP) PO PRN (06:03)
[2021-10-05] MEDS: oxyCODONE HCL 5 MG TABLET PO PRN (06:04)
[2021-10-05 08:43] VITALS: BP 147/81; PULSE 72; TEMP 97.7
[2021-10-05] MEDS: HYDROCORTISONE 10 MG TABLET PO SCH (09:03)
[2021-10-05] MEDS: PANTOPRAZOLE 40 MG TABLET PO SCH (09:04)
[2021-10-05 09:21] LABS: BASO % 0.7 % (0-2.0); EOS % 1.3 % (0-4.5); HEMATOCRIT 35.9 % (32.4-45.2); HEMOGLOBIN 11.6 GM/dL (10.7-15.3); LYMPH % 28.9 % (8-40); MCH 27.8 pg (25.7-33.7); MCHC 32.3 g/dl (32.0-36.0); MEAN CELL VOLUME 85.8 fl (80-96); MONO % 6.7 % (3.8-10.2); NEUT % 62.4 % (42.8-82.8); PLATELET COUNT 317 10^3/uL (134-434); RBC 4.18 M/mm3 (3.60-5.2); WHITE BLOOD COUNT 5.5 K/mm3 (4.0-10.0)
[2021-10-05 09:58] LABS: CALCIUM 9.2 mg/dL (8.5-10.1)
[2021-10-05 10:02] LABS: CREATININE 0.9 mg/dL (0.55-1.3)
== END 2021-10-05 13:56 | disposition home or self-care (01) | DRG 392 ==
LOC: JER 13:34 → JERBED 18:36 → J4S 21:51
PROVIDERS: ADMIT Internal Medicine; ATTEND Internal Medicine
PROC: 0DB68ZX Excision of Stomach, Via Natural or Artificial Opening Endoscopic, Diagnostic (ICD-10-PCS; 2021-10-04)
PROC: 0DB58ZX Excision of Esophagus, Via Natural or Artificial Opening Endoscopic, Diagnostic (ICD-10-PCS; 2021-10-04)
PROC: 0DB98ZX Excision of Duodenum, Via Natural or Artificial Opening Endoscopic, Diagnostic (ICD-10-PCS; principal; 2021-10-04 09:00)
DX: K31.84 Gastroparesis (principal); K92.2 Gastrointestinal hemorrhage, unspecified; E27.40 Unspecified adrenocortical insufficiency; N17.9 Acute kidney failure, unspecified; B37.81 Candidal esophagitis; K52.89 Other specified noninfective gastroenteritis and colitis; J44.9 Chronic obstructive pulmonary disease, unspecified; I10 Essential (primary) hypertension; I34.1 Nonrheumatic mitral (valve) prolapse; D64.9 Anemia, unspecified; J45.909 Unspecified asthma, uncomplicated; R26.81 Unsteadiness on feet; K21.9 Gastro-esophageal reflux disease without esophagitis; K57.90 Diverticulosis of intestine, part unspecified, without perforation or abscess without bleeding; K22.70 Barrett's esophagus without dysplasia; M41.9 Scoliosis, unspecified; K82.8 Other specified diseases of gallbladder; K44.9 Diaphragmatic hernia without obstruction or gangrene; D12.6 Benign neoplasm of colon, unspecified; R10.9 Unspecified abdominal pain; R11.10 Vomiting, unspecified; F41.8 Other specified anxiety disorders; R19.7 Diarrhea, unspecified; G89.29 Other chronic pain; R82.71 Bacteriuria; Z87.11 Personal history of peptic ulcer disease; Z96.653 Presence of artificial knee joint, bilateral
CPT/HCPCS: 36415; 70450-TC; 71045-TC-FY; 72125-TC; 72170-TC-FY; 74176-TC; 74177-TC; 76705-TC; 80048; 80053; 80076; 81003; 82150; 82272; 82533; 82550; 82607; 82977; 83540; 83550; 83615; 83631; 83690; 83735; 84100; 84439; 84443; 84484; 85025; 85027; 85045; 85610; 85730; 86850; 86900; 86901; 87045; 87046; 87086; 87177; 87186; 87209; 87324; 87449; 87798; 88104; 88305-TC; 93005; 93010; 97116-GP; 99285-25; C9803; J0131; J1644; J1756; Q9967; U0003; U0005

== ENCOUNTER 2021-10-26 10:07 | Inpatient (IN) | payer OTHER ==
[2021-10-26 11:11] VITALS: BMI 62.4
[2021-10-26 11:48] LABS: BASO % 1.3 % (0-2.0); EOS % 1.5 % (0-4.5); HEMATOCRIT 38.2 % (32.4-45.2); HEMOGLOBIN 12.4 GM/dL (10.7-15.3); LYMPH % 33.8 % (8-40); MCH 27.6 pg (25.7-33.7); MCHC 32.4 g/dl (32.0-36.0); MEAN CELL VOLUME 85.2 fl (80-96); MEAN PLT VOLUME 6.4 fl (7.5-11.1); MONO % 9.8 % (3.8-10.2); NEUT % 53.6 % (42.8-82.8); PLATELET COUNT 262 10^3/uL (134-434); RBC 4.48 M/mm3 (3.60-5.2); RDW 17.2 % (11.6-15.6); WHITE BLOOD COUNT 4.9 K/mm3 (4.0-10.0)
[2021-10-26 12:06] LABS: CHLORIDE 101 mmol/L (98-107); SODIUM 133 mmol/L (136-145)
[2021-10-26 12:08] LABS: ALBUMIN 3.7 g/dl (3.4-5.0); ANION GAP 8 MMOL/L (8-16); BLOOD UREA NITROGEN 36.4 mg/dL (7-18); CALCIUM 9.3 mg/dL (8.5-10.1); CO2 23 mmol/L (21-32); GLUCOSE,RANDOM 89 mg/dL (74-106); MAGNESIUM 2.3 mg/dL (1.8-2.4)
[2021-10-26 12:11] LABS: CREATININE 1.3 mg/dL (0.55-1.3); SGOT/AST 17 U/L (15-37); SGPT/ALT 14 U/L (13-61)
[2021-10-26 12:13] LABS: BILIRUBIN,TOTAL 0.4 mg/dL (0.2-1)
[2021-10-26 12:14] LABS: ALK PHOS 129 U/L (45-117)
[2021-10-26 14:06] LABS: URINE APPEARANCE CLEAR; URINE BILIRUBIN NEGATIVE (NEGATIVE); URINE COLOR YELLOW; URINE GLUCOSE (UA) NEGATIVE (NEGATIVE); URINE KETONE NEGATIVE (NEGATIVE); URINE LEUK ESTERASE NEGATIVE (NEGATIVE); URINE NITRITE NEGATIVE (NEGATIVE); URINE PROTEIN NEGATIVE (NEGATIVE); URINE UROBILINOGEN 0.2 mg/dL (0.2-1.0)
[2021-10-26] MEDS ORDERED: ACETAMINOPHEN 325 MG TABLET (FP) ONE (17:04)
[2021-10-26] MEDS: ACETAMINOPHEN 325 MG TABLET (FP) PO PRN (17:09)
[2021-10-26] MEDS ORDERED: METOCLOPRAMIDE HCL 10 MG TABLET (FP) PO ONE (17:48)
[2021-10-26] MEDS: METOCLOPRAMIDE HCL 10 MG TABLET (FP) PO SCH (17:50)
[2021-10-26] MEDS ORDERED: HYDROCORTISONE 20 MG TABLET PO ONE (19:11)
[2021-10-26] MEDS ORDERED: HYDROCORTISONE SOD SUCCINATE 100 MG/2 ML VIAL IVPUSH ONE (19:20)
[2021-10-26] MEDS ORDERED: HYDROCORTISONE PO ONE (19:30)
[2021-10-26 19:47] LABS: BASO % 0.8 % (0-2.0); EOS % 0.7 % (0-4.5); HEMATOCRIT 34.5 % (32.4-45.2); HEMOGLOBIN 11.3 GM/dL (10.7-15.3); LYMPH % 38.4 % (8-40); MCH 27.6 pg (25.7-33.7); MCHC 32.6 g/dl (32.0-36.0); MEAN CELL VOLUME 84.6 fl (80-96); MEAN PLT VOLUME 6.4 fl (7.5-11.1); NEUT % 48.1 % (42.8-82.8); PLATELET COUNT 304 10^3/uL (134-434); RBC 4.08 M/mm3 (3.60-5.2); WHITE BLOOD COUNT 5.7 K/mm3 (4.0-10.0)
[2021-10-26] MEDS ORDERED: SODIUM CHLORIDE 1,000 ML IV STA ×2 (20:07→20:10)
[2021-10-26 20:09] LABS: BLOOD UREA NITROGEN 44.5 mg/dL (7-18)
[2021-10-26 20:12] LABS: CREATININE 1.8 mg/dL (0.55-1.3)
[2021-10-26] MEDS: HYDROCORTISONE PO SCH (21:15)
[2021-10-26] MEDS: METOPROLOL TARTRATE 25 MG TABLET (FP) PO SCH (21:49)
[2021-10-26] MEDS ORDERED: HYDROCORTISONE 5 MG TABLET PO SCH (22:00)
[2021-10-26] MEDS ORDERED: GABAPENTIN 300 MG CAPSULE PO SCH (22:00)
[2021-10-26] MEDS: BUDESONIDE/FORMETEROL FUMARATE 160/4.5 mcg INHALER IH SCH (22:18)
[2021-10-26] MEDS ORDERED: SODIUM CHLORIDE 500 ML IV STA (22:50)
[2021-10-27] MEDS: ACETAMINOPHEN 325 MG TABLET (FP) PO PRN ×2 (05:40→09:28)
[2021-10-27] MEDS: METOCLOPRAMIDE HCL 10 MG TABLET (FP) PO SCH ×3 (06:00→16:56)
[2021-10-27 08:58] LABS: URINE UREA NITROGEN 821 mg/dL (350-1000)
[2021-10-27] MEDS: METOPROLOL TARTRATE 25 MG TABLET (FP) PO SCH ×2 (09:51→21:38)
[2021-10-27] MEDS: PANTOPRAZOLE 40 MG TABLET PO SCH (10:02)
[2021-10-27] MEDS: ESCITALOPRAM OXALATE 10 MG TABLET PO SCH (10:03)
[2021-10-27] MEDS: HYDROCORTISONE PO SCH (10:03)
[2021-10-27] MEDS: BUDESONIDE/FORMETEROL FUMARATE 160/4.5 mcg INHALER IH SCH ×2 (10:05→21:37)
[2021-10-27] MEDS ORDERED: HYDROCORTISONE 20 MG TABLET PO SCH (10:21)
[2021-10-27] MEDS ORDERED: HYDROCORTISONE 20 MG TABLET PO ONE (11:00)
[2021-10-27 12:48] LABS: BASO % 0.2 % (0-2.0); EOS % 0.4 % (0-4.5); HEMOGLOBIN 9.6 GM/dL (10.7-15.3); LYMPH % 14.7 % (8-40); MCH 27.4 pg (25.7-33.7); MCHC 32.1 g/dl (32.0-36.0); MEAN CELL VOLUME 85.4 fl (80-96); MEAN PLT VOLUME 6.8 fl (7.5-11.1); MONO % 8.5 % (3.8-10.2); NEUT % 76.2 % (42.8-82.8); PLATELET COUNT 247 10^3/uL (134-434); RBC 3.52 M/mm3 (3.60-5.2); RDW 16.9 % (11.6-15.6); WHITE BLOOD COUNT 6.6 K/mm3 (4.0-10.0)
[2021-10-27 13:19] LABS: BLOOD UREA NITROGEN 33.6 mg/dL (7-18); CALCIUM 8.8 mg/dL (8.5-10.1)
[2021-10-27 13:23] LABS: CREATININE 1.1 mg/dL (0.55-1.3)
[2021-10-27] MEDS ORDERED: ALBUTEROL SO4 HFA INHALER IH PRN (13:51)
[2021-10-27] MEDS: ENOXAPARIN NA (PORCINE) 40 MG/0.4 ML DISP.SYRIN SQ SCH (14:15)
[2021-10-27] MEDS: ACETAMINOPHEN 1000 MG/100 ML BAG IVPB PRN ×2 (14:15→21:38)
[2021-10-27] MEDS: oxyCODONE HCL 5 MG TABLET PO PRN (21:55)
[2021-10-28] MEDS: oxyCODONE HCL 5 MG TABLET PO PRN ×3 (05:16→19:40)
[2021-10-28] MEDS: ACETAMINOPHEN 1000 MG/100 ML BAG IVPB PRN ×2 (05:16→09:58)
[2021-10-28] MEDS: METOCLOPRAMIDE HCL 10 MG TABLET (FP) PO SCH ×3 (06:33→15:55)
[2021-10-28 09:47] LABS: HEMATOCRIT 29.7 % (32.4-45.2); HEMOGLOBIN 9.8 GM/dL (10.7-15.3); MCH 27.9 pg (25.7-33.7); MCHC 33.1 g/dl (32.0-36.0); MEAN CELL VOLUME 84.2 fl (80-96); MEAN PLT VOLUME 6.8 fl (7.5-11.1); PLATELET COUNT 217 10^3/uL (134-434); RBC 3.52 M/mm3 (3.60-5.2); RDW 16.3 % (11.6-15.6); WHITE BLOOD COUNT 5.4 K/mm3 (4.0-10.0)
[2021-10-28 09:58] LABS: CALCIUM 8.7 mg/dL (8.5-10.1)
[2021-10-28 09:59] LABS: BLOOD UREA NITROGEN 22.8 mg/dL (7-18); MAGNESIUM 2.3 mg/dL (1.8-2.4)
[2021-10-28] MEDS: METOPROLOL TARTRATE 25 MG TABLET (FP) PO SCH ×2 (09:59→21:09)
[2021-10-28] MEDS: ESCITALOPRAM OXALATE 10 MG TABLET PO SCH (09:59)
[2021-10-28] MEDS ORDERED: DOCUSATE SODIUM 100 MG CAPSULE (FP) PO ONE (10:00)
[2021-10-28] MEDS: ENOXAPARIN NA (PORCINE) 40 MG/0.4 ML DISP.SYRIN SQ SCH (10:00)
[2021-10-28] MEDS: PANTOPRAZOLE 40 MG TABLET PO SCH (10:00)
[2021-10-28 10:02] LABS: PHOSPHOROUS 2.8 mg/dL (2.5-4.9)
[2021-10-28 10:03] LABS: CREATININE 0.9 mg/dL (0.55-1.3)
[2021-10-28] MEDS: HYDROCORTISONE SOD SUCCINATE 100 MG/2 ML VIAL IVPB SCH ×2 (10:03→21:09)
[2021-10-28] MEDS: BUDESONIDE/FORMETEROL FUMARATE 160/4.5 mcg INHALER IH SCH ×2 (10:08→21:09)
[2021-10-28] MEDS: GABAPENTIN 100 MG CAPSULE PO SCH ×2 (13:20→21:09)
[2021-10-28] MEDS: ACETAMINOPHEN 325 MG TABLET (FP) PO PRN (17:26)
[2021-10-29] MEDS: oxyCODONE HCL 5 MG TABLET PO PRN ×4 (02:30→21:09)
[2021-10-29] MEDS: GABAPENTIN 100 MG CAPSULE PO SCH ×3 (06:14→21:08)
[2021-10-29] MEDS: METOCLOPRAMIDE HCL 10 MG TABLET (FP) PO SCH ×3 (06:14→16:42)
[2021-10-29] MEDS: ACETAMINOPHEN 325 MG TABLET (FP) PO PRN ×2 (06:17→21:09)
[2021-10-29 08:33] LABS: HEMATOCRIT 26.9 % (32.4-45.2); MCH 28.1 pg (25.7-33.7); MCHC 33.4 g/dl (32.0-36.0); MEAN PLT VOLUME 6.6 fl (7.5-11.1); PLATELET COUNT 203 10^3/uL (134-434); RDW 16.5 % (11.6-15.6); WHITE BLOOD COUNT 4.7 K/mm3 (4.0-10.0)
[2021-10-29 08:49] LABS: BLOOD UREA NITROGEN 14.6 mg/dL (7-18); CALCIUM 8.5 mg/dL (8.5-10.1); MAGNESIUM 2.2 mg/dL (1.8-2.4)
[2021-10-29 08:53] LABS: CREATININE 0.7 mg/dL (0.55-1.3)
[2021-10-29] MEDS: METOPROLOL TARTRATE 25 MG TABLET (FP) PO SCH ×2 (09:10→21:11)
[2021-10-29] MEDS: PANTOPRAZOLE 40 MG TABLET PO SCH (09:11)
[2021-10-29] MEDS: ENOXAPARIN NA (PORCINE) 40 MG/0.4 ML DISP.SYRIN SQ SCH (09:11)
[2021-10-29] MEDS: ESCITALOPRAM OXALATE 10 MG TABLET PO SCH (09:11)
[2021-10-29] MEDS: HYDROCORTISONE SOD SUCCINATE 100 MG/2 ML VIAL IVPB SCH (09:12)
[2021-10-29] MEDS: BUDESONIDE/FORMETEROL FUMARATE 160/4.5 mcg INHALER IH SCH ×2 (09:14→21:19)
[2021-10-29] MEDS: NAPH,MB-DB/K PH,MBDB POWDER PACKET PO SCH ×2 (13:12→21:08)
[2021-10-29] MEDS: POLYETHYLENE GLYCOL (HEALTHYLAX) 3350 17 GM PACKET PO SCH (14:55)
[2021-10-29] MEDS: HYDROCORTISONE 20 MG TABLET PO SCH (21:11)
[2021-10-30] MEDS: oxyCODONE HCL 5 MG TABLET PO PRN ×4 (03:26→22:25)
[2021-10-30] MEDS: ACETAMINOPHEN 325 MG TABLET (FP) PO PRN ×4 (03:26→22:26)
[2021-10-30] MEDS: GABAPENTIN 100 MG CAPSULE PO SCH ×3 (06:04→21:28)
[2021-10-30] MEDS: METOCLOPRAMIDE HCL 10 MG TABLET (FP) PO SCH ×3 (06:04→16:16)
[2021-10-30 08:37] LABS: HEMOGLOBIN 9.4 GM/dL (10.7-15.3); IRON SERUM 42 ug/dL (50-175); MCH 28.9 pg (25.7-33.7); MCHC 33.7 g/dl (32.0-36.0); MEAN CELL VOLUME 85.7 fl (80-96); MEAN PLT VOLUME 7.1 fl (7.5-11.1); PLATELET COUNT 207 10^3/uL (134-434); RBC 3.26 M/mm3 (3.60-5.2); RDW 16.6 % (11.6-15.6)
[2021-10-30 08:45] LABS: TOTAL IRON BINDING CAPACITY 361 ug/dL (250-450)
[2021-10-30 08:49] LABS: BLOOD UREA NITROGEN 23.4 mg/dL (7-18); CALCIUM 8.3 mg/dL (8.5-10.1)
[2021-10-30 08:53] LABS: PHOSPHOROUS 2.4 mg/dL (2.5-4.9)
[2021-10-30] MEDS: ENOXAPARIN NA (PORCINE) 40 MG/0.4 ML DISP.SYRIN SQ SCH (09:04)
[2021-10-30] MEDS: ESCITALOPRAM OXALATE 10 MG TABLET PO SCH (09:04)
[2021-10-30] MEDS: NAPH,MB-DB/K PH,MBDB POWDER PACKET PO SCH ×2 (09:04→21:25)
[2021-10-30] MEDS: POLYETHYLENE GLYCOL (HEALTHYLAX) 3350 17 GM PACKET PO SCH (09:04)
[2021-10-30] MEDS: METOPROLOL TARTRATE 25 MG TABLET (FP) PO SCH ×2 (09:04→21:27)
[2021-10-30] MEDS: PANTOPRAZOLE 40 MG TABLET PO SCH (09:05)
[2021-10-30] MEDS: HYDROCORTISONE 20 MG TABLET PO SCH (09:05)
[2021-10-30] MEDS: BUDESONIDE/FORMETEROL FUMARATE 160/4.5 mcg INHALER IH SCH ×2 (09:09→21:29)
[2021-10-30] MEDS ORDERED: SODIUM PHOSPHATE - 30 MM in SODIUM CHLORIDE 500 ML IVPB ONE (12:00)
[2021-10-30] MEDS ORDERED: HYDROCORTISONE 20 MG TABLET PO SCH (12:44)
[2021-10-31] MEDS: ACETAMINOPHEN 325 MG TABLET (FP) PO PRN ×3 (04:44→16:31)
[2021-10-31] MEDS: oxyCODONE HCL 5 MG TABLET PO PRN ×3 (04:44→16:30)
[2021-10-31] MEDS: GABAPENTIN 100 MG CAPSULE PO SCH ×2 (06:15→13:31)
[2021-10-31] MEDS: METOCLOPRAMIDE HCL 10 MG TABLET (FP) PO SCH ×2 (06:15→10:46)
[2021-10-31] MEDS ORDERED: HYDROCORTISONE PO SCH (07:00)
[2021-10-31] MEDS ORDERED: HYDROCORTISONE 20 MG TABLET PO SCH ×2 (07:00→22:00)
[2021-10-31 07:09] LABS: HEMATOCRIT 28.1 % (32.4-45.2); HEMOGLOBIN 9.1 GM/dL (10.7-15.3); MCH 27.5 pg (25.7-33.7); MCHC 32.3 g/dl (32.0-36.0); MEAN CELL VOLUME 85.3 fl (80-96); MEAN PLT VOLUME 7.3 fl (7.5-11.1); PLATELET COUNT 207 10^3/uL (134-434); RDW 16.5 % (11.6-15.6); WHITE BLOOD COUNT 5.3 K/mm3 (4.0-10.0)
[2021-10-31 07:25] LABS: CALCIUM 8.6 mg/dL (8.5-10.1); MAGNESIUM 2.1 mg/dL (1.8-2.4)
[2021-10-31 07:28] LABS: PHOSPHOROUS 2.6 mg/dL (2.5-4.9)
[2021-10-31 07:29] LABS: CREATININE 0.9 mg/dL (0.55-1.3)
[2021-10-31] MEDS: NAPH,MB-DB/K PH,MBDB POWDER PACKET PO SCH (09:24)
[2021-10-31] MEDS: METOPROLOL TARTRATE 25 MG TABLET (FP) PO SCH (09:25)
[2021-10-31] MEDS: ENOXAPARIN NA (PORCINE) 40 MG/0.4 ML DISP.SYRIN SQ SCH (09:25)
[2021-10-31] MEDS: PANTOPRAZOLE 40 MG TABLET PO SCH (09:25)
[2021-10-31] MEDS: POLYETHYLENE GLYCOL (HEALTHYLAX) 3350 17 GM PACKET PO SCH (09:25)
[2021-10-31] MEDS: ESCITALOPRAM OXALATE 10 MG TABLET PO SCH (09:25)
[2021-10-31] MEDS ORDERED: IRON SUCROSE INJECTION 200 MG in SODIUM CHLORIDE 90 ML IVPB ONE (11:15)
[2021-10-31 14:55] VITALS: BP 122/65; PULSE 54; TEMP 98.1
== END 2021-10-31 18:11 | disposition home or self-care (01) | DRG 563 ==
LOC: JER 10:07 → JERBED 15:00 → J4S 18:37
PROVIDERS: ADMIT Internal Medicine; ATTEND Internal Medicine
DX: S82.101A Unspecified fracture of upper end of right tibia, initial encounter for closed fracture (principal); E27.2 Addisonian crisis; N17.9 Acute kidney failure, unspecified; E87.1 Hypo-osmolality and hyponatremia; S82.831A Other fracture of upper and lower end of right fibula, initial encounter for closed fracture; M79.605 Pain in left leg; J44.9 Chronic obstructive pulmonary disease, unspecified; I10 Essential (primary) hypertension; K21.9 Gastro-esophageal reflux disease without esophagitis; W19.XXXA Unspecified fall, initial encounter; Y93.9 Activity, unspecified; Y92.89 Other specified places as the place of occurrence of the external cause; Y99.9 Unspecified external cause status
CPT/HCPCS: 36415; 70450-TC; 71046-TC-FY; 72125-TC; 72170-TC-FY; 73590-TC-RT-FY; 73610-TC-RT-FY; 73630-TC-RT-FY; 80048; 80053; 81003; 82024; 82436; 82533; 82550; 82553; 82962; 83540; 83550; 83735; 84100; 84133; 84300; 84484; 84540; 85025; 85027; 87086; 93005; 93010; 97116-GP; 97161-GP; 99285-25; C9803; J1756; U0003; U0005

== ENCOUNTER 2021-11-11 09:35 | Inpatient (IN) | payer OTHER ==
[2021-11-11] MEDS ORDERED: ONDANSETRON 4 MG/2 ML VIAL IVPUSH ONE (10:01)
[2021-11-11] MEDS ORDERED: ACETAMINOPHEN 1000 MG/100 ML BAG IVPB ONE ×2 (10:01→23:44)
[2021-11-11] MEDS ORDERED: FAMOTIDINE 20 MG/50 ML IVPB 20 MG/50 ML MG IVPB ONE ×2 (10:01→10:59)
[2021-11-11] MEDS ORDERED: LACTATED RINGERS SOLUTION 1000 ML INFUS.BAG IV ONE (10:01)
[2021-11-11] MEDS ORDERED: HYDROCORTISONE SOD SUCCINATE 100 MG/2 ML VIAL IVPUSH ONE (10:06)
[2021-11-11] MEDS ORDERED: ACETAMINOPHEN INJECTION 100 ML IVPB ONE (10:58)
[2021-11-11] MEDS ORDERED: ONDANSETRON 4 MG/2 ML VIAL ONE (10:58)
[2021-11-11] MEDS ORDERED: HYDROCORTISONE SOD SUCCINATE 100 MG/2 ML VIAL ONE (10:59)
[2021-11-11 11:27] LABS: BASO % 0.9 % (0-2.0); EOS % 0.4 % (0-4.5); HEMATOCRIT 42.4 % (32.4-45.2); HEMOGLOBIN 14.3 GM/dL (10.7-15.3); LYMPH % 12.8 % (8-40); MCH 27.9 pg (25.7-33.7); MCHC 33.6 g/dl (32.0-36.0); MEAN CELL VOLUME 83.1 fl (80-96); MEAN PLT VOLUME 6.8 fl (7.5-11.1); MONO % 7.9 % (3.8-10.2); PLATELET COUNT 429 10^3/uL (134-434); RDW 18.7 % (11.6-15.6); WHITE BLOOD COUNT 11.2 K/mm3 (4.0-10.0)
[2021-11-11 11:33] LABS: INR 1.03 (0.83-1.09); PROTHROMBIN TIME (PATIENT) 11.9 SEC (9.7-13.0)
[2021-11-11 11:36] LABS: ACTIVATED PTT 17.8 SECONDS (25.2-36.5)
[2021-11-11 11:49] LABS: ALBUMIN 4.8 g/dl (3.4-5.0); MAGNESIUM 2.5 mg/dL (1.8-2.4)
[2021-11-11 11:52] LABS: CREATININE 1.6 mg/dL (0.55-1.3)
[2021-11-11 11:53] LABS: TOT PROT 8.5 g/dl (6.4-8.2)
[2021-11-11 11:54] LABS: BILIRUBIN,TOTAL 1.1 mg/dL (0.2-1)
[2021-11-11 11:57] LABS: BLOOD UREA NITROGEN 57.4 mg/dL (7-18); CALCIUM 10.7 mg/dL (8.5-10.1)
[2021-11-11] MEDS ORDERED: SODIUM CHLORIDE 0.9% 1000 ML INFUS.BAG IV ONE (16:47)
[2021-11-11] MEDS ORDERED: TRIMETHOBENZAMIDE HCL 200MG/2ML INJ IM PRN (18:24)
[2021-11-11] MEDS: SODIUM CHLORIDE 1,000 ML IV SCH ×2 (19:17→22:49)
[2021-11-11 19:40] LABS: EPI CELLS 8 /uL (0-25.1); HYALINE CASTS 1 /uL (0-3.1); URINE APPEARANCE CLOUDY; URINE BACTERIA >9,000 /uL (0-1359); URINE BILIRUBIN NEGATIVE (NEGATIVE); URINE COLOR YELLOW; URINE GLUCOSE (UA) NEGATIVE (NEGATIVE); URINE KETONE TRACE (NEGATIVE); URINE LEUK ESTERASE 1+ (NEGATIVE); URINE NITRITE NEGATIVE (NEGATIVE); URINE PROTEIN 1+ (NEGATIVE); URINE RBC 6 /uL (0-23.9); URINE UROBILINOGEN 0.2 mg/dL (0.2-1.0); URINE WBC 296 /uL (0-25.8)
[2021-11-11] MEDS: METOPROLOL TARTRATE 25 MG TABLET (FP) PO SCH (22:45)
[2021-11-11] MEDS: HEPARIN NA (PORCINE) 5,000 UNITS/ML 1ML VIAL SQ SCH (22:45)
[2021-11-11] MEDS ORDERED: DEXTROSE 5%-WATER - 50 ML IVPB ONE (22:51)
[2021-11-11] MEDS ORDERED: cefTRIAXone SODIUM 1 GM VIAL ONE (22:51)
[2021-11-11] MEDS: CEFTRIAXONE 1 GM in DEXTROSE 5%-WATER - 50 ML IVPB SCH (22:52)
[2021-11-12] MEDS: HEPARIN NA (PORCINE) 5,000 UNITS/ML 1ML VIAL SQ SCH ×3 (06:32→21:30)
[2021-11-12 08:37] LABS: BASO % 0.6 % (0-2.0); EOS % 1.2 % (0-4.5); HEMATOCRIT 33.5 % (32.4-45.2); HEMOGLOBIN 11.3 GM/dL (10.7-15.3); MCH 28.6 pg (25.7-33.7); MCHC 33.8 g/dl (32.0-36.0); MEAN CELL VOLUME 84.6 fl (80-96); MEAN PLT VOLUME 6.4 fl (7.5-11.1); MONO % 8.5 % (3.8-10.2); NEUT % 69.7 % (42.8-82.8); PLATELET COUNT 316 10^3/uL (134-434); RBC 3.95 M/mm3 (3.60-5.2); RDW 18.4 % (11.6-15.6); WHITE BLOOD COUNT 7.6 K/mm3 (4.0-10.0)
[2021-11-12 09:03] LABS: BLOOD UREA NITROGEN 47.5 mg/dL (7-18); CREATININE 1.2 mg/dL (0.55-1.3); MAGNESIUM 2.3 mg/dL (1.8-2.4); PHOSPHOROUS 3.6 mg/dL (2.5-4.9)
[2021-11-12 09:06] LABS: BILIRUBIN,TOTAL 0.6 mg/dL (0.2-1)
[2021-11-12 09:26] LABS: ALBUMIN 3.4 g/dl (3.4-5.0); CALCIUM 8.7 mg/dL (8.5-10.1); TOT PROT 6.5 g/dl (6.4-8.2)
[2021-11-12] MEDS ORDERED: cefTRIAXone SODIUM 1 GM VIAL ONE (09:58)
[2021-11-12] MEDS ORDERED: DEXTROSE 5%-WATER - 50 ML IVPB ONE (09:58)
[2021-11-12] MEDS ORDERED: HYDROCORTISONE SOD SUCCINATE 100 MG/2 ML VIAL IVPUSH SCH ×2 (10:00)
[2021-11-12] MEDS ORDERED: HYDROCORTISONE 20 MG TABLET PO SCH (10:00)
[2021-11-12] MEDS: CEFTRIAXONE 1 GM in DEXTROSE 5%-WATER - 50 ML IVPB SCH (10:16)
[2021-11-12] MEDS: PANTOPRAZOLE 40 MG TABLET PO SCH (10:17)
[2021-11-12] MEDS: METOPROLOL TARTRATE 25 MG TABLET (FP) PO SCH ×2 (10:17→21:31)
[2021-11-12] MEDS ORDERED: ALBUTEROL SO4 HFA INHALER IH PRN (12:36)
[2021-11-12] MEDS ORDERED: PATIENT'S OWN MEDICATION (NON-FORMULARY) (Walker [Ultra-Light Rollator] 1 EACH Each) MC SCH (12:45)
[2021-11-12] MEDS ORDERED: SODIUM CHLORIDE 1,000 ML IV SCH (12:55)
[2021-11-12] MEDS: oxyCODONE HCL 5 MG TABLET PO PRN ×2 (13:50→21:31)
[2021-11-12] MEDS: BANATROL PLUS POWDER PACKET PO SCH ×2 (14:37→21:38)
[2021-11-12] MEDS: GABAPENTIN 300 MG CAPSULE PO SCH ×2 (14:38→21:31)
[2021-11-12] MEDS: SODIUM CHLORIDE 1,000 ML IV SCH (16:34)
[2021-11-12 16:53] VITALS: BMI 29.7
[2021-11-12] MEDS: AMINO ACIDS/PROTEIN HYDROLYS 30 ML LIQUID.PKT PO SCH (17:57)
[2021-11-12] MEDS: HYDROCORTISONE SOD SUCCINATE 100 MG/2 ML VIAL IVPUSH SCH (21:29)
[2021-11-12] MEDS: BUDESONIDE/FORMETEROL FUMARATE 160/4.5 mcg INHALER IH SCH (21:39)
[2021-11-13] MEDS: GABAPENTIN 300 MG CAPSULE PO SCH ×3 (06:07→21:14)
[2021-11-13] MEDS: BANATROL PLUS POWDER PACKET PO SCH ×3 (06:07→21:13)
[2021-11-13] MEDS: HEPARIN NA (PORCINE) 5,000 UNITS/ML 1ML VIAL SQ SCH ×3 (06:07→21:14)
[2021-11-13] MEDS: oxyCODONE HCL 5 MG TABLET PO PRN ×3 (06:08→21:37)
[2021-11-13] MEDS ORDERED: cefTRIAXone SODIUM 1 GM VIAL ONE (09:06)
[2021-11-13] MEDS ORDERED: DEXTROSE 5%-WATER - 50 ML IVPB ONE (09:06)
[2021-11-13] MEDS: SODIUM CHLORIDE 1,000 ML IV SCH ×2 (09:44→17:55)
[2021-11-13] MEDS: HYDROCORTISONE SOD SUCCINATE 100 MG/2 ML VIAL IVPUSH SCH ×2 (09:44→21:14)
[2021-11-13] MEDS: CEFTRIAXONE 1 GM in DEXTROSE 5%-WATER - 50 ML IVPB SCH (09:44)
[2021-11-13] MEDS: MULTIVITAMINS (DAILY MVI) TABLET (FP) PO SCH (09:45)
[2021-11-13] MEDS: METOPROLOL TARTRATE 25 MG TABLET (FP) PO SCH ×2 (09:45→21:14)
[2021-11-13] MEDS: AMINO ACIDS/PROTEIN HYDROLYS 30 ML LIQUID.PKT PO SCH ×2 (09:45→17:52)
[2021-11-13] MEDS: ESCITALOPRAM OXALATE 20 MG TABLET PO SCH (09:45)
[2021-11-13] MEDS: PANTOPRAZOLE 40 MG TABLET PO SCH (09:45)
[2021-11-13] MEDS: FOLIC ACID 1 MG TABLET (FP) PO SCH (09:45)
[2021-11-13] MEDS: BUDESONIDE/FORMETEROL FUMARATE 160/4.5 mcg INHALER IH SCH ×2 (09:46→21:22)
[2021-11-13 11:09] LABS: BASO % 0.8 % (0-2.0); EOS % 1.1 % (0-4.5); HEMATOCRIT 31.5 % (32.4-45.2); HEMOGLOBIN 10.2 GM/dL (10.7-15.3); LYMPH % 27.6 % (8-40); MCH 28.2 pg (25.7-33.7); MCHC 32.6 g/dl (32.0-36.0); MEAN CELL VOLUME 86.7 fl (80-96); MEAN PLT VOLUME 6.6 fl (7.5-11.1); MONO % 9.2 % (3.8-10.2); NEUT % 61.3 % (42.8-82.8); PLATELET COUNT 253 10^3/uL (134-434); RBC 3.63 M/mm3 (3.60-5.2); RDW 18.4 % (11.6-15.6); WHITE BLOOD COUNT 4.7 K/mm3 (4.0-10.0)
[2021-11-13 11:27] LABS: CALCIUM 8.2 mg/dL (8.5-10.1); MAGNESIUM 1.9 mg/dL (1.8-2.4)
[2021-11-13 11:29] LABS: PHOSPHOROUS 2.6 mg/dL (2.5-4.9)
[2021-11-13 11:31] LABS: CREATININE 0.9 mg/dL (0.55-1.3)
[2021-11-13 11:32] LABS: BILIRUBIN,TOTAL 0.3 mg/dL (0.2-1); TOT PROT 5.8 g/dl (6.4-8.2)
[2021-11-13 11:58] LABS: BLOOD UREA NITROGEN 22.2 mg/dL (7-18)
[2021-11-13] MEDS ORDERED: POTASSIUM CHLORIDE TABS 20 MEQ TABLET.ER (FP) PO ONE (17:25)
[2021-11-14] MEDS: GABAPENTIN 300 MG CAPSULE PO SCH ×3 (05:15→21:39)
[2021-11-14] MEDS: BANATROL PLUS POWDER PACKET PO SCH ×3 (05:15→21:46)
[2021-11-14] MEDS: HEPARIN NA (PORCINE) 5,000 UNITS/ML 1ML VIAL SQ SCH ×3 (05:15→21:39)
[2021-11-14] MEDS: oxyCODONE HCL 5 MG TABLET PO PRN ×3 (05:16→21:39)
[2021-11-14] MEDS ORDERED: cefTRIAXone SODIUM 1 GM VIAL ONE (07:47)
[2021-11-14] MEDS ORDERED: DEXTROSE 5%-WATER - 50 ML IVPB ONE (07:47)
[2021-11-14] MEDS: FOLIC ACID 1 MG TABLET (FP) PO SCH (09:20)
[2021-11-14] MEDS: MULTIVITAMINS (DAILY MVI) TABLET (FP) PO SCH (09:20)
[2021-11-14] MEDS: ESCITALOPRAM OXALATE 20 MG TABLET PO SCH (09:20)
[2021-11-14] MEDS: METOPROLOL TARTRATE 25 MG TABLET (FP) PO SCH ×2 (09:20→21:39)
[2021-11-14] MEDS: CEFTRIAXONE 1 GM in DEXTROSE 5%-WATER - 50 ML IVPB SCH (09:20)
[2021-11-14] MEDS: PANTOPRAZOLE 40 MG TABLET PO SCH (09:20)
[2021-11-14] MEDS: BUDESONIDE/FORMETEROL FUMARATE 160/4.5 mcg INHALER IH SCH ×2 (09:21→21:42)
[2021-11-14] MEDS: AMINO ACIDS/PROTEIN HYDROLYS 30 ML LIQUID.PKT PO SCH ×2 (09:22→16:55)
[2021-11-14 09:39] LABS: BASO % 0.7 % (0-2.0); EOS % 0.9 % (0-4.5); LYMPH % 30.4 % (8-40); MCH 28.2 pg (25.7-33.7); MCHC 32.4 g/dl (32.0-36.0); MEAN CELL VOLUME 87.1 fl (80-96); MEAN PLT VOLUME 6.6 fl (7.5-11.1); MONO % 6.7 % (3.8-10.2); NEUT % 61.3 % (42.8-82.8); PLATELET COUNT 256 10^3/uL (134-434); WHITE BLOOD COUNT 4.8 K/mm3 (4.0-10.0)
[2021-11-14 10:04] LABS: CALCIUM 8.3 mg/dL (8.5-10.1)
[2021-11-14 10:06] LABS: BLOOD UREA NITROGEN 15.6 mg/dL (7-18); MAGNESIUM 1.9 mg/dL (1.8-2.4)
[2021-11-14 10:09] LABS: CREATININE 0.8 mg/dL (0.55-1.3)
[2021-11-14 10:10] LABS: BILIRUBIN,TOTAL 0.2 mg/dL (0.2-1); TOT PROT 5.8 g/dl (6.4-8.2)
[2021-11-14] MEDS: HYDROCORTISONE 10 MG TABLET PO SCH ×2 (10:20→21:43)
[2021-11-14] MEDS: SODIUM CHLORIDE 1,000 ML IV SCH (11:06)
[2021-11-14] MEDS: COD LIVER OIL/ZINC OXIDE PASTE 56 GM TUBE TP PRN (11:07)
[2021-11-14] MEDS: SODIUM CHLORIDE 0.45% 1,000 ML IV SCH (14:54)
[2021-11-15] MEDS: SODIUM CHLORIDE 0.45% 1,000 ML IV SCH (05:25)
[2021-11-15] MEDS: GABAPENTIN 300 MG CAPSULE PO SCH ×3 (05:26→21:48)
[2021-11-15] MEDS: HEPARIN NA (PORCINE) 5,000 UNITS/ML 1ML VIAL SQ SCH ×3 (05:26→21:48)
[2021-11-15] MEDS: oxyCODONE HCL 5 MG TABLET PO PRN ×3 (05:27→22:06)
[2021-11-15] MEDS: BANATROL PLUS POWDER PACKET PO SCH ×3 (05:27→21:52)
[2021-11-15] MEDS: AMINO ACIDS/PROTEIN HYDROLYS 30 ML LIQUID.PKT PO SCH ×2 (09:03→16:31)
[2021-11-15] MEDS: PANTOPRAZOLE 40 MG TABLET PO SCH (09:04)
[2021-11-15] MEDS: BUDESONIDE/FORMETEROL FUMARATE 160/4.5 mcg INHALER IH SCH ×3 (09:04→21:59)
[2021-11-15] MEDS: MULTIVITAMINS (DAILY MVI) TABLET (FP) PO SCH (09:04)
[2021-11-15] MEDS: FOLIC ACID 1 MG TABLET (FP) PO SCH (09:05)
[2021-11-15] MEDS: HYDROCORTISONE 10 MG TABLET PO SCH ×2 (09:05→21:51)
[2021-11-15] MEDS: METOPROLOL TARTRATE 25 MG TABLET (FP) PO SCH ×2 (09:05→22:09)
[2021-11-15] MEDS: ESCITALOPRAM OXALATE 20 MG TABLET PO SCH (09:06)
[2021-11-15] MEDS: DOCUSATE SODIUM 100 MG CAPSULE (FP) PO SCH (13:37)
[2021-11-15 14:34] LABS: BASO % 0.8 % (0-2.0); EOS % 0.5 % (0-4.5); HEMATOCRIT 37.5 % (32.4-45.2); LYMPH % 12.4 % (8-40); MCH 28.2 pg (25.7-33.7); MEAN PLT VOLUME 7.4 fl (7.5-11.1); MONO % 5.7 % (3.8-10.2); NEUT % 80.6 % (42.8-82.8); PLATELET COUNT 262 10^3/uL (134-434); RBC 4.27 M/mm3 (3.60-5.2); RDW 18.6 % (11.6-15.6); WHITE BLOOD COUNT 7.2 K/mm3 (4.0-10.0)
[2021-11-15 14:46] LABS: CALCIUM 9.1 mg/dL (8.5-10.1)
[2021-11-15 14:47] LABS: ALBUMIN 3.4 g/dl (3.4-5.0); BLOOD UREA NITROGEN 13.4 mg/dL (7-18); MAGNESIUM 1.9 mg/dL (1.8-2.4)
[2021-11-15 14:50] LABS: CREATININE 0.8 mg/dL (0.55-1.3)
[2021-11-15 14:51] LABS: BILIRUBIN,TOTAL 0.3 mg/dL (0.2-1)
[2021-11-15 14:55] LABS: TOT PROT 6.5 g/dl (6.4-8.2)
[2021-11-16] MEDS: COD LIVER OIL/ZINC OXIDE PASTE 56 GM TUBE TP PRN (02:02)
[2021-11-16] MEDS: HEPARIN NA (PORCINE) 5,000 UNITS/ML 1ML VIAL SQ SCH ×2 (05:55→13:55)
[2021-11-16] MEDS: GABAPENTIN 300 MG CAPSULE PO SCH ×2 (05:56→13:53)
[2021-11-16] MEDS: BANATROL PLUS POWDER PACKET PO SCH ×2 (05:56→13:54)
[2021-11-16] MEDS: oxyCODONE HCL 5 MG TABLET PO PRN ×2 (06:07→13:54)
[2021-11-16 08:55] LABS: BASO % 0.5 % (0-2.0); EOS % 0.7 % (0-4.5); HEMATOCRIT 31.6 % (32.4-45.2); HEMOGLOBIN 10.3 GM/dL (10.7-15.3); MCH 28.1 pg (25.7-33.7); MCHC 32.5 g/dl (32.0-36.0); MEAN CELL VOLUME 86.4 fl (80-96); MEAN PLT VOLUME 7.1 fl (7.5-11.1); MONO % 6.1 % (3.8-10.2); NEUT % 70.7 % (42.8-82.8); PLATELET COUNT 230 10^3/uL (134-434); RBC 3.66 M/mm3 (3.60-5.2); RDW 18.6 % (11.6-15.6); WHITE BLOOD COUNT 4.5 K/mm3 (4.0-10.0)
[2021-11-16 09:20] LABS: CALCIUM 8.7 mg/dL (8.5-10.1)
[2021-11-16 09:21] LABS: ALBUMIN 3.2 g/dl (3.4-5.0); BLOOD UREA NITROGEN 14.8 mg/dL (7-18); MAGNESIUM 2.1 mg/dL (1.8-2.4)
[2021-11-16 09:24] LABS: CREATININE 0.8 mg/dL (0.55-1.3)
[2021-11-16 09:25] LABS: BILIRUBIN,TOTAL 0.3 mg/dL (0.2-1); TOT PROT 5.8 g/dl (6.4-8.2)
[2021-11-16] MEDS: MULTIVITAMINS (DAILY MVI) TABLET (FP) PO SCH (10:25)
[2021-11-16] MEDS: AMINO ACIDS/PROTEIN HYDROLYS 30 ML LIQUID.PKT PO SCH (10:25)
[2021-11-16] MEDS: DOCUSATE SODIUM 100 MG CAPSULE (FP) PO SCH (10:25)
[2021-11-16] MEDS: FOLIC ACID 1 MG TABLET (FP) PO SCH (10:25)
[2021-11-16] MEDS: PANTOPRAZOLE 40 MG TABLET PO SCH (10:25)
[2021-11-16] MEDS: METOPROLOL TARTRATE 25 MG TABLET (FP) PO SCH (10:25)
[2021-11-16] MEDS: ESCITALOPRAM OXALATE 20 MG TABLET PO SCH (10:25)
[2021-11-16] MEDS: HYDROCORTISONE 10 MG TABLET PO SCH (10:34)
[2021-11-16] MEDS: BUDESONIDE/FORMETEROL FUMARATE 160/4.5 mcg INHALER IH SCH (10:35)
[2021-11-16 13:17] VITALS: BP 151/73; PULSE 63; TEMP 97.9
== END 2021-11-16 15:02 | disposition home health service (06) | DRG 644 ==
LOC: JER 09:35 → JERBED 16:49 → J7W 20:39
PROVIDERS: ADMIT Internal Medicine; ATTEND Internal Medicine
DX: E27.2 Addisonian crisis (principal); N39.0 Urinary tract infection, site not specified; N17.9 Acute kidney failure, unspecified; E87.1 Hypo-osmolality and hyponatremia; E27.1 Primary adrenocortical insufficiency; J44.9 Chronic obstructive pulmonary disease, unspecified; I10 Essential (primary) hypertension; D64.9 Anemia, unspecified; K22.70 Barrett's esophagus without dysplasia; E86.0 Dehydration; E86.1 Hypovolemia; F17.200 Nicotine dependence, unspecified, uncomplicated; K57.90 Diverticulosis of intestine, part unspecified, without perforation or abscess without bleeding; D72.829 Elevated white blood cell count, unspecified; R11.2 Nausea with vomiting, unspecified; R19.7 Diarrhea, unspecified; K21.9 Gastro-esophageal reflux disease without esophagitis
CPT/HCPCS: 36415; 71045-TC-FY; 74176-TC; 74177-TC; 76705-TC; 80053; 81003; 82024; 82436; 82533; 82962; 83605; 83690; 83735; 83930; 84100; 84133; 84300; 84439; 84443; 84479; 84484; 85025; 85610; 85730; 86850; 86900; 86901; 87045; 87046; 87086; 87186; 87324; 87449; 93005; 93010; 97116-GP; 97161-GP; 99285-25; C9803-CS; J1644; Q9967; U0003; U0005

== ENCOUNTER 2022-10-03 12:43 | Inpatient (IN) | payer OTHER ==
[2022-10-03 13:48] VITALS: BMI 32.3
[2022-10-03] MEDS ORDERED: ONDANSETRON *ODT* 4 MG TABLET SL ONE (15:19)
[2022-10-03] MEDS ORDERED: ONDANSETRON 4 MG/2 ML VIAL IVPUSH ONE ×2 (15:26→20:09)
[2022-10-03 15:41] LABS: URINE APPEARANCE CLEAR; URINE BILIRUBIN NEGATIVE (NEGATIVE); URINE COLOR YELLOW; URINE GLUCOSE (UA) NEGATIVE (NEGATIVE); URINE KETONE TRACE (NEGATIVE)
[2022-10-03 15:42] LABS: PH,URINE 5.5 (5.0-8.0); URINE LEUK ESTERASE NEGATIVE (NEGATIVE); URINE NITRITE NEGATIVE (NEGATIVE); URINE PROTEIN 1+ (NEGATIVE); URINE UROBILINOGEN 0.2 mg/dL (0.2-1.0)
[2022-10-03] MEDS ORDERED: ONDANSETRON 4 MG/2 ML VIAL ONE ×2 (15:43→20:13)
[2022-10-03 15:58] LABS: VENOUS BASE EXCESS -3.7 mmol/L (-2-2); VENOUS O2 SATURATION 70.2 % (70-80); VENOUS PCO2 36.6 mmHg (38-52); VENOUS PH 7.375 (7.310-7.410)
[2022-10-03 16:04] LABS: INR 1.22 (0.83-1.09); PROTHROMBIN TIME (PATIENT) 14.1 SEC (9.7-13.0)
[2022-10-03 16:09] LABS: CALCIUM 9.5 mg/dL (8.5-10.1)
[2022-10-03 16:10] LABS: ALBUMIN 3.2 g/dl (3.4-5.0); BLOOD UREA NITROGEN 26.3 mg/dL (7-18)
[2022-10-03 16:13] LABS: CREATININE 0.8 mg/dL (0.55-1.3)
[2022-10-03 16:14] LABS: TOT PROT 6.7 g/dl (6.4-8.2)
[2022-10-03 16:15] LABS: BILIRUBIN,TOTAL 0.6 mg/dL (0.2-1)
[2022-10-03 16:16] LABS: BASO % 0.2 % (0-2.0); EOS % 0.7 % (0-4.5); HEMATOCRIT 37.3 % (32.4-45.2); HEMOGLOBIN 12.3 GM/dL (10.7-15.3); LYMPH % 3.6 % (8-40); MCH 27.2 pg (25.7-33.7); MEAN CELL VOLUME 82.6 fl (80-96); MEAN PLT VOLUME 7.1 fl (7.5-11.1); MONO % 5.4 % (3.8-10.2); NEUT % 90.1 % (42.8-82.8); PLATELET COUNT 258 10^3/uL (134-434); RBC 4.51 M/mm3 (3.60-5.2); RDW 19.7 % (11.6-15.6); WHITE BLOOD COUNT 8.9 K/mm3 (4.0-10.0)
[2022-10-03] MEDS ORDERED: SODIUM CHLORIDE 0.9% 500 ML INFUS.BAG IV ONE (17:49)
[2022-10-03] MEDS: HYDROCORTISONE SOD SUCCINATE 100 MG/2 ML VIAL IVPUSH SCH (22:57)
[2022-10-03] MEDS: SODIUM CHLORIDE 1,000 ML IV SCH (22:57)
[2022-10-03] MEDS: TRIMETHOBENZAMIDE HCL 200MG/2ML INJ IM PRN (22:58)
[2022-10-04] MEDS: PANTOPRAZOLE SODIUM 40 MG VIAL IVPUSH SCH ×2 (00:24→11:11)
[2022-10-04] MEDS: METOPROLOL TARTRATE 5 MG/5 ML VIAL IVPB SCH ×2 (00:24→11:12)
[2022-10-04] MEDS: BUDESONIDE/FORMETEROL FUMARATE 160/4.5 mcg INHALER IH SCH ×3 (01:08→21:59)
[2022-10-04] MEDS: HYDROCORTISONE SOD SUCCINATE 100 MG/2 ML VIAL IVPUSH SCH ×3 (05:31→16:04)
[2022-10-04] MEDS: SODIUM CHLORIDE 1,000 ML IV SCH (06:36)
[2022-10-04 09:04] LABS: HEMATOCRIT 33.3 % (32.4-45.2); HEMOGLOBIN 10.8 GM/dL (10.7-15.3); MCH 27.3 pg (25.7-33.7); MCHC 32.4 g/dl (32.0-36.0); MEAN PLT VOLUME 7.3 fl (7.5-11.1); PLATELET COUNT 248 10^3/uL (134-434); RBC 3.97 M/mm3 (3.60-5.2); WHITE BLOOD COUNT 6.1 K/mm3 (4.0-10.0)
[2022-10-04 09:26] LABS: ALBUMIN 2.7 g/dl (3.4-5.0); BLOOD UREA NITROGEN 24.5 mg/dL (7-18); CALCIUM 8.8 mg/dL (8.5-10.1); MAGNESIUM 2.2 mg/dL (1.8-2.4)
[2022-10-04 09:29] LABS: CREATININE 0.8 mg/dL (0.55-1.3)
[2022-10-04 09:31] LABS: BILIRUBIN,TOTAL 0.4 mg/dL (0.2-1)
[2022-10-04] MEDS: ENOXAPARIN NA (PORCINE) 40 MG/0.4 ML DISP.SYRIN SQ SCH (11:11)
[2022-10-04] MEDS: TRIMETHOBENZAMIDE HCL 200MG/2ML INJ IM PRN (11:13)
[2022-10-04] MEDS ORDERED: SODIUM CHLORIDE 1,000 ML IV SCH (11:33)
[2022-10-04] MEDS ORDERED: ERGOCALCIFEROL (VIT D2) 50,000 UNIT (1.25 MG) CAPSULE PO SCH (14:45)
[2022-10-04] MEDS ORDERED: METOCLOPRAMIDE HCL INJECTION 10 MG/2 ML VIAL IVPUSH PRN (14:51)
[2022-10-04] MEDS: POTASSIUM CHLORIDE TABS 10 MEQ TABLET.ER (FP) PO SCH (15:10)
[2022-10-04] MEDS: FOLIC ACID 1 MG TABLET (FP) PO SCH (15:10)
[2022-10-04] MEDS: GABAPENTIN 300 MG CAPSULE PO SCH ×2 (15:10→21:53)
[2022-10-04] MEDS: ESCITALOPRAM OXALATE 10 MG TABLET PO SCH (15:11)
[2022-10-04] MEDS: oxyCODONE HCL 5 MG TABLET PO PRN ×2 (15:49→21:53)
[2022-10-04] MEDS: SUCRALFATE 1 GM TABLET (FP) PO SCH (15:49)
[2022-10-04] MEDS ORDERED: METOCLOPRAMIDE HCL INJECTION 10 MG/2 ML VIAL IVPUSH SCH (16:30)
[2022-10-04] MEDS: ASPIRIN 81 MG CHEWABLE TABLETS PO SCH (21:52)
[2022-10-04] MEDS: ZOLPIDEM TARTRATE 5 MG TABLET PO PRN (21:53)
[2022-10-04] MEDS: METOPROLOL TARTRATE 25 MG TABLET (FP) PO SCH (21:54)
[2022-10-05] MEDS: GABAPENTIN 300 MG CAPSULE PO SCH ×3 (05:49→21:50)
[2022-10-05] MEDS: oxyCODONE HCL 5 MG TABLET PO PRN ×2 (05:50→21:50)
[2022-10-05] MEDS: HYDROCORTISONE SOD SUCCINATE 100 MG/2 ML VIAL IVPUSH SCH ×5 (06:07→21:49)
[2022-10-05 10:26] LABS: HEMOGLOBIN 9.9 GM/dL (10.7-15.3); MCH 27.4 pg (25.7-33.7); MEAN CELL VOLUME 83.3 fl (80-96); MEAN PLT VOLUME 6.9 fl (7.5-11.1); PLATELET COUNT 225 10^3/uL (134-434); RDW 19.1 % (11.6-15.6); WHITE BLOOD COUNT 5.6 K/mm3 (4.0-10.0)
[2022-10-05] MEDS: METOPROLOL TARTRATE 25 MG TABLET (FP) PO SCH ×2 (10:40→21:50)
[2022-10-05] MEDS: ESCITALOPRAM OXALATE 10 MG TABLET PO SCH (10:41)
[2022-10-05] MEDS: SUCRALFATE 1 GM TABLET (FP) PO SCH (10:41)
[2022-10-05] MEDS: PANTOPRAZOLE 40 MG TABLET PO SCH (10:41)
[2022-10-05] MEDS: ENOXAPARIN NA (PORCINE) 40 MG/0.4 ML DISP.SYRIN SQ SCH (10:41)
[2022-10-05] MEDS: ASPIRIN 81 MG CHEWABLE TABLETS PO SCH ×2 (10:41→21:50)
[2022-10-05] MEDS: FOLIC ACID 1 MG TABLET (FP) PO SCH (10:41)
[2022-10-05] MEDS: POTASSIUM CHLORIDE TABS 10 MEQ TABLET.ER (FP) PO SCH (10:41)
[2022-10-05] MEDS: BUDESONIDE/FORMETEROL FUMARATE 160/4.5 mcg INHALER IH SCH ×2 (10:46→21:51)
[2022-10-05 11:00] LABS: CALCIUM 8.9 mg/dL (8.5-10.1)
[2022-10-05 11:01] LABS: ALBUMIN 2.7 g/dl (3.4-5.0); BLOOD UREA NITROGEN 26.6 mg/dL (7-18); MAGNESIUM 2.1 mg/dL (1.8-2.4)
[2022-10-05 11:04] LABS: CREATININE 1.1 mg/dL (0.55-1.3); PHOSPHOROUS 2.6 mg/dL (2.5-4.9)
[2022-10-05 11:05] LABS: BILIRUBIN,TOTAL 0.3 mg/dL (0.2-1); TOT PROT 5.9 g/dl (6.4-8.2)
[2022-10-05] MEDS ORDERED: SODIUM CHLORIDE 1,000 ML IV SCH (12:45)
[2022-10-05] MEDS ORDERED: HYDROCORTISONE SOD SUCCINATE 100 MG/2 ML VIAL IVPUSH SCH (13:00)
[2022-10-05] MEDS: guaiFENesin 600 MG TABLET.ER (FP) PO SCH ×2 (16:00→21:50)
[2022-10-05] MEDS: ZOLPIDEM TARTRATE 5 MG TABLET PO PRN (21:50)
[2022-10-06] MEDS: HYDROCORTISONE SOD SUCCINATE 100 MG/2 ML VIAL IVPUSH SCH ×5 (06:10→21:21)
[2022-10-06] MEDS: GABAPENTIN 300 MG CAPSULE PO SCH ×3 (06:11→21:29)
[2022-10-06 07:28] LABS: HEMATOCRIT 28.6 % (32.4-45.2); HEMOGLOBIN 9.3 GM/dL (10.7-15.3); MCH 27.2 pg (25.7-33.7); MCHC 32.7 g/dl (32.0-36.0); MEAN CELL VOLUME 83.1 fl (80-96); MEAN PLT VOLUME 7.3 fl (7.5-11.1); PLATELET COUNT 224 10^3/uL (134-434); RBC 3.44 M/mm3 (3.60-5.2); RDW 18.4 % (11.6-15.6); WHITE BLOOD COUNT 4.5 K/mm3 (4.0-10.0)
[2022-10-06 08:28] LABS: CALCIUM 8.8 mg/dL (8.5-10.1)
[2022-10-06 08:29] LABS: ALBUMIN 2.5 g/dl (3.4-5.0); BLOOD UREA NITROGEN 22.2 mg/dL (7-18); MAGNESIUM 2.2 mg/dL (1.8-2.4)
[2022-10-06 08:32] LABS: CREATININE 0.9 mg/dL (0.55-1.3)
[2022-10-06 08:34] LABS: BILIRUBIN,TOTAL 0.4 mg/dL (0.2-1); PHOSPHOROUS 2.4 mg/dL (2.5-4.9)
[2022-10-06 08:36] LABS: TOT PROT 5.4 g/dl (6.4-8.2)
[2022-10-06 08:43] LABS: INR 0.93 (0.83-1.09); PROTHROMBIN TIME (PATIENT) 10.8 SEC (9.7-13.0)
[2022-10-06] MEDS ORDERED: LIDOCAINE VISCOUS 2% ORAL/TOP 15 ML UNIT-DOSE CUP ONE (09:59)
[2022-10-06] MEDS ORDERED: NAPH,MB-DB/K PH,MBDB POWDER PACKET PO ONE (10:34)
[2022-10-06 11:09] VITALS: RESP 18
[2022-10-06] MEDS: METOPROLOL TARTRATE 25 MG TABLET (FP) PO SCH ×2 (11:36→21:28)
[2022-10-06] MEDS: FOLIC ACID 1 MG TABLET (FP) PO SCH (11:36)
[2022-10-06] MEDS: POTASSIUM CHLORIDE TABS 10 MEQ TABLET.ER (FP) PO SCH (11:36)
[2022-10-06] MEDS: PANTOPRAZOLE 40 MG TABLET PO SCH (11:37)
[2022-10-06] MEDS: ESCITALOPRAM OXALATE 10 MG TABLET PO SCH (11:37)
[2022-10-06] MEDS: guaiFENesin 600 MG TABLET.ER (FP) PO SCH ×2 (11:37→21:28)
[2022-10-06] MEDS: oxyCODONE HCL 5 MG TABLET PO PRN ×2 (11:41→21:29)
[2022-10-06] MEDS: SUCRALFATE 1 GM/10 ML UNIT DOSE CUPS PO SCH ×3 (11:41→21:29)
[2022-10-06] MEDS: BUDESONIDE/FORMETEROL FUMARATE 160/4.5 mcg INHALER IH SCH ×2 (11:45→21:20)
[2022-10-06] MEDS: SUCRALFATE 1 GM TABLET (FP) PO SCH (15:29)
[2022-10-06] MEDS: METOCLOPRAMIDE HCL INJECTION 10 MG/2 ML VIAL IVPUSH SCH ×2 (17:22→21:28)
[2022-10-06] MEDS: ZOLPIDEM TARTRATE 5 MG TABLET PO PRN (21:29)
[2022-10-06] MEDS: POLYETHYLENE GLYCOL (HEALTHYLAX) 3350 17 GM PACKET PO SCH (21:30)
[2022-10-07] MEDS: oxyCODONE HCL 5 MG TABLET PO PRN (06:28)
[2022-10-07] MEDS: HYDROCORTISONE SOD SUCCINATE 100 MG/2 ML VIAL IVPUSH SCH ×2 (06:28→09:37)
[2022-10-07] MEDS: SUCRALFATE 1 GM/10 ML UNIT DOSE CUPS PO SCH (06:28)
[2022-10-07] MEDS: GABAPENTIN 300 MG CAPSULE PO SCH (06:28)
[2022-10-07] MEDS: METOCLOPRAMIDE HCL INJECTION 10 MG/2 ML VIAL IVPUSH SCH (06:28)
[2022-10-07 07:46] LABS: HEMATOCRIT 31.7 % (32.4-45.2); HEMOGLOBIN 10.6 GM/dL (10.7-15.3); MCH 27.7 pg (25.7-33.7); MCHC 33.3 g/dl (32.0-36.0); MEAN CELL VOLUME 83.1 fl (80-96); MEAN PLT VOLUME 6.9 fl (7.5-11.1); PLATELET COUNT 230 10^3/uL (134-434); RBC 3.82 M/mm3 (3.60-5.2); RDW 18.4 % (11.6-15.6); WHITE BLOOD COUNT 5.6 K/mm3 (4.0-10.0)
[2022-10-07 08:24] LABS: BLOOD UREA NITROGEN 24.8 mg/dL (7-18)
[2022-10-07 08:25] LABS: ALBUMIN 2.6 g/dl (3.4-5.0); MAGNESIUM 2.1 mg/dL (1.8-2.4)
[2022-10-07 08:27] LABS: PHOSPHOROUS 2.3 mg/dL (2.5-4.9)
[2022-10-07 08:29] LABS: BILIRUBIN,TOTAL 0.2 mg/dL (0.2-1); TOT PROT 5.6 g/dl (6.4-8.2)
[2022-10-07] MEDS: FOLIC ACID 1 MG TABLET (FP) PO SCH (09:38)
[2022-10-07] MEDS: guaiFENesin 600 MG TABLET.ER (FP) PO SCH (09:38)
[2022-10-07] MEDS: ESCITALOPRAM OXALATE 10 MG TABLET PO SCH (09:38)
[2022-10-07] MEDS: POTASSIUM CHLORIDE TABS 10 MEQ TABLET.ER (FP) PO SCH (09:38)
[2022-10-07] MEDS: METOPROLOL TARTRATE 25 MG TABLET (FP) PO SCH (09:38)
[2022-10-07] MEDS: PANTOPRAZOLE 40 MG TABLET PO SCH (09:38)
[2022-10-07] MEDS: BUDESONIDE/FORMETEROL FUMARATE 160/4.5 mcg INHALER IH SCH (09:39)
[2022-10-07] MEDS: POLYETHYLENE GLYCOL (HEALTHYLAX) 3350 17 GM PACKET PO SCH (09:40)
[2022-10-07 11:03] VITALS: BP 144/87; PULSE 64; TEMP 98.7
[2022-10-07] MEDS ORDERED: NAPH,MB-DB/K PH,MBDB POWDER PACKET PO ONE (11:25)
== END 2022-10-07 13:00 | disposition home or self-care (01) | DRG 392 ==
LOC: JER 12:43 → JERBED 15:39 → J4S 21:17 → OBSVTOIN 22:41 → JERBED 22:41
PROVIDERS: ADMIT Internal Medicine; ATTEND Internal Medicine
PROC: 0DB68ZX Excision of Stomach, Via Natural or Artificial Opening Endoscopic, Diagnostic (ICD-10-PCS; 2022-10-06)
PROC: 0DB58ZX Excision of Esophagus, Via Natural or Artificial Opening Endoscopic, Diagnostic (ICD-10-PCS; 2022-10-06)
PROC: 0DB98ZX Excision of Duodenum, Via Natural or Artificial Opening Endoscopic, Diagnostic (ICD-10-PCS; principal; 2022-10-06 10:00)
DX: K29.70 Gastritis, unspecified, without bleeding (principal); E27.40 Unspecified adrenocortical insufficiency; B37.81 Candidal esophagitis; E87.1 Hypo-osmolality and hyponatremia; K31.84 Gastroparesis; E86.0 Dehydration; R55 Syncope and collapse; I34.1 Nonrheumatic mitral (valve) prolapse; F41.9 Anxiety disorder, unspecified; I10 Essential (primary) hypertension; J44.9 Chronic obstructive pulmonary disease, unspecified; S00.83XA Contusion of other part of head, initial encounter; R11.2 Nausea with vomiting, unspecified; K21.9 Gastro-esophageal reflux disease without esophagitis; E66.9 Obesity, unspecified; Z68.32 Body mass index [BMI] 32.0-32.9, adult; K44.9 Diaphragmatic hernia without obstruction or gangrene; K22.70 Barrett's esophagus without dysplasia; K57.30 Diverticulosis of large intestine without perforation or abscess without bleeding; K83.8 Other specified diseases of biliary tract; W18.30XA Fall on same level, unspecified, initial encounter; Y92.098 Other place in other non-institutional residence as the place of occurrence of the external cause; Z87.11 Personal history of peptic ulcer disease
CPT/HCPCS: 0241U-QW; 36415; 70450-TC; 71045-TC-FY; 71260-TC; 72125-TC; 74177-TC; 74220-TC-FY; 74240-TC-FY; 80053; 81003; 82550; 82553; 82803; 83036; 83605; 83735; 84100; 84484; 85025; 85027; 85610; 85730; 86850; 86900; 86901; 87040; 87086; 88305-TC; 93005; 93010; 93306-TC; 94761; 97116-GP; 97161-GP; 99285-25; G0378; Q9967

== ENCOUNTER 2023-01-10 10:10 | Inpatient (IN) | payer OTHER ==
[2023-01-10] MEDS ORDERED: ONDANSETRON 4 MG/2 ML VIAL IVPUSH ONE ×2 (10:32→13:08)
[2023-01-10] MEDS ORDERED: PANTOPRAZOLE SODIUM 40 MG VIAL IVPUSH ONE (10:32)
[2023-01-10] MEDS ORDERED: PANTOPRAZOLE SODIUM 80 MG/200 ML BAG IVPB ONE (10:35)
[2023-01-10] MEDS ORDERED: SODIUM CHLORIDE 0.9% 500 ML INFUS.BAG IV ONE ×3 (10:35→18:35)
[2023-01-10] MEDS ORDERED: ONDANSETRON 4 MG/2 ML VIAL ONE ×2 (10:35→13:12)
[2023-01-10] MEDS ORDERED: ACETAMINOPHEN 1000 MG/100 ML BAG IVPB ONE ×2 (10:35→18:26)
[2023-01-10] MEDS ORDERED: VANCOMYCIN 1 GM in D5W (PRE-DOCKED) 1,000 MG/250 ML (RESTRICTED TO ID ONLY IVPB ONE (10:45)
[2023-01-10] MEDS ORDERED: PIPERACILLIN/TAZOB 4.5 GM 4.5 GM in DEXTROSE 5%-WATER 100 ML IVPB ONE (10:45)
[2023-01-10] MEDS ORDERED: ACETAMINOPHEN INJECTION 100 ML IVPB ONE ×2 (11:41→18:58)
[2023-01-10] MEDS ORDERED: VANCOMYCIN/WATER FOR INJ (PEG) 1,000 MG/200 ML BAG IVPB ONE (11:42)
[2023-01-10] MEDS ORDERED: PIPERACILLIN/TAZOB 4.5 GM 4.5 GM/100 ML BAG IVPB ONE (11:42)
[2023-01-10 11:45] LABS: BASO % 0.7 % (0-2.0); EOS % 0.9 % (0-4.5); HEMATOCRIT 44.1 % (32.4-45.2); HEMOGLOBIN 15.2 GM/dL (10.7-15.3); LYMPH % 20.2 % (8-40); MCH 29.6 pg (25.7-33.7); MCHC 34.5 g/dl (32.0-36.0); MEAN CELL VOLUME 85.7 fl (80-96); MEAN PLT VOLUME 6.9 fl (7.5-11.1); MONO % 8.5 % (3.8-10.2); NEUT % 69.7 % (42.8-82.8); PLATELET COUNT 496 10^3/uL (134-434); RBC 5.15 M/mm3 (3.60-5.2); RDW 15.9 % (11.6-15.6); VENOUS BASE EXCESS -0.6 mmol/L (-2-2); VENOUS O2 SATURATION 69.9 % (70-80); VENOUS PCO2 24.9 mmHg (38-52); VENOUS PH 7.525 (7.310-7.410); WHITE BLOOD COUNT 12.7 K/mm3 (4.0-10.0)
[2023-01-10 11:53] LABS: INR 1.06 (0.83-1.09); PROTHROMBIN TIME (PATIENT) 12.3 SEC (9.7-13.0)
[2023-01-10 11:56] LABS: ACTIVATED PTT 28.9 SECONDS (25.2-36.5)
[2023-01-10 11:58] LABS: POTASSIUM 3.7 mmol/L (3.5-5.1)
[2023-01-10 11:59] LABS: CALCIUM 10.5 mg/dL (8.5-10.1)
[2023-01-10 12:00] LABS: ALBUMIN 4.4 g/dl (3.4-5.0); BLOOD UREA NITROGEN 43.4 mg/dL (7-18)
[2023-01-10 12:02] LABS: CREATININE 2.3 mg/dL (0.55-1.3)
[2023-01-10 12:04] LABS: BILIRUBIN,TOTAL 0.8 mg/dL (0.2-1); LACTIC ACID 4.3 mmol/L (0.4-2.0); TOT PROT 8.2 g/dl (6.4-8.2)
[2023-01-10] MEDS: PANTOPRAZOLE SODIUM 160 MG in SODIUM CHLORIDE 290 ML IVPB SCH (13:11)
[2023-01-10 14:13] LABS: LACTIC ACID 2.9 mmol/L (0.4-2.0)
[2023-01-10] MEDS ORDERED: METOCLOPRAMIDE HCL INJECTION 10 MG/2 ML VIAL IVPB ONE (15:06)
[2023-01-10] MEDS ORDERED: METOCLOPRAMIDE HCL INJECTION 10 MG/2 ML VIAL ONE (15:07)
[2023-01-10 15:11] LABS: BASO % 0.7 % (0-2.0); EOS % 1.1 % (0-4.5); HEMATOCRIT 38.8 % (32.4-45.2); HEMOGLOBIN 12.9 GM/dL (10.7-15.3); LYMPH % 13.9 % (8-40); MCH 29.2 pg (25.7-33.7); MCHC 33.2 g/dl (32.0-36.0); MEAN CELL VOLUME 87.9 fl (80-96); MEAN PLT VOLUME 6.5 fl (7.5-11.1); MONO % 12.2 % (3.8-10.2); NEUT % 72.1 % (42.8-82.8); PLATELET COUNT 294 10^3/uL (134-434); RBC 4.41 M/mm3 (3.60-5.2); RDW 15.9 % (11.6-15.6); WHITE BLOOD COUNT 11.5 K/mm3 (4.0-10.0)
[2023-01-10 15:15] LABS: EPI CELLS 9 /uL (0-25.1); HYALINE CASTS 1 /uL (0-3.1); PH,URINE 5.5 (5.0-8.0); URINE APPEARANCE CLOUDY; URINE BACTERIA 4063 /uL (0-1359); URINE BILIRUBIN NEGATIVE (NEGATIVE); URINE COLOR YELLOW; URINE GLUCOSE (UA) NEGATIVE (NEGATIVE); URINE KETONE TRACE (NEGATIVE); URINE LEUK ESTERASE NEGATIVE (NEGATIVE); URINE NITRITE NEGATIVE (NEGATIVE); URINE PROTEIN 1+ (NEGATIVE); URINE RBC 4 /uL (0-23.9); URINE UROBILINOGEN 0.2 mg/dL (0.2-1.0); URINE WBC 25 /uL (0-25.8)
[2023-01-10] MEDS ORDERED: ONDANSETRON 4 MG/2 ML VIAL IVPUSH PRN (18:36)
[2023-01-10] MEDS ORDERED: HYDROCORTISONE SOD SUCCINATE 100 MG/2 ML VIAL IVPUSH SCH (18:45)
[2023-01-10] MEDS ORDERED: HYDROCORTISONE SOD SUCCINATE 100 MG/2 ML VIAL ONE (18:58)
[2023-01-10] MEDS: SODIUM CHLORIDE 1,000 ML IV SCH (18:59)
[2023-01-10 20:19] LABS: BASO % 0.5 % (0-2.0); EOS % 1.5 % (0-4.5); LYMPH % 13.9 % (8-40); MEAN PLT VOLUME 6.4 fl (7.5-11.1); MONO % 10.4 % (3.8-10.2); NEUT % 73.7 % (42.8-82.8); PLATELET COUNT 358 10^3/uL (134-434); RBC 4.66 M/mm3 (3.60-5.2); RDW 16.2 % (11.6-15.6); WHITE BLOOD COUNT 10.7 K/mm3 (4.0-10.0)
[2023-01-10 23:54] LABS: HEMATOCRIT 36.4 % (32.4-45.2); HEMOGLOBIN 12.3 GM/dL (10.7-15.3); MCH 29.6 pg (25.7-33.7); MCHC 33.9 g/dl (32.0-36.0); MEAN CELL VOLUME 87.3 fl (80-96); MEAN PLT VOLUME 6.5 fl (7.5-11.1); PLATELET COUNT 305 10^3/uL (134-434); RBC 4.17 M/mm3 (3.60-5.2); RDW 16.1 % (11.6-15.6); WHITE BLOOD COUNT 10.1 K/mm3 (4.0-10.0)
[2023-01-11 00:03] LABS: INR 1.09 (0.83-1.09); PROTHROMBIN TIME (PATIENT) 12.6 SEC (9.7-13.0)
[2023-01-11 00:05] LABS: ACTIVATED PTT 25.7 SECONDS (25.2-36.5)
[2023-01-11 00:13] LABS: POTASSIUM 3.6 mmol/L (3.5-5.1)
[2023-01-11 00:15] LABS: BLOOD UREA NITROGEN 43.9 mg/dL (7-18)
[2023-01-11 00:19] LABS: CREATININE 1.7 mg/dL (0.55-1.3)
[2023-01-11] MEDS: HYDROCORTISONE SOD SUCCINATE 100 MG/2 ML VIAL IVPUSH SCH ×2 (00:24→05:47)
[2023-01-11 00:25] LABS: CALCIUM 8.6 mg/dL (8.5-10.1)
[2023-01-11 06:11] LABS: ANISOCYTOSIS 3+; MACROCYTOSIS 0; ROULEAU 1+
[2023-01-11 06:37] LABS: HEMATOCRIT 37.3 % (32.4-45.2); HEMOGLOBIN 12.8 GM/dL (10.7-15.3); MCHC 34.4 g/dl (32.0-36.0); MEAN CELL VOLUME 87.2 fl (80-96); MEAN PLT VOLUME 6.9 fl (7.5-11.1); PLATELET COUNT 322 10^3/uL (134-434); RBC 4.28 M/mm3 (3.60-5.2); RDW 15.7 % (11.6-15.6); WHITE BLOOD COUNT 8.3 K/mm3 (4.0-10.0)
[2023-01-11] MEDS: PANTOPRAZOLE SODIUM 160 MG in SODIUM CHLORIDE 290 ML IVPB SCH (06:56)
[2023-01-11 06:59] LABS: CALCIUM 8.6 mg/dL (8.5-10.1)
[2023-01-11 07:00] LABS: BLOOD UREA NITROGEN 32.5 mg/dL (7-18)
[2023-01-11 07:03] LABS: CREATININE 1.6 mg/dL (0.55-1.3)
[2023-01-11] MEDS: SODIUM CHLORIDE 1,000 ML IV SCH (08:50)
[2023-01-11] MEDS: CEFTRIAXONE 1 GM in DEXTROSE 5%-WATER - 50 ML IVPB SCH (09:11)
[2023-01-11] MEDS ORDERED: PANTOPRAZOLE SODIUM 40 MG VIAL IVPUSH SCH (10:00)
[2023-01-11 10:25] LABS: ANISOCYTOSIS 2+; MACROCYTOSIS 0; OVALOCYTE 2+; TEAR DROP CELLS 1+
[2023-01-11] MEDS ORDERED: ACETAMINOPHEN 1000 MG/100 ML BAG IVPB ONE (11:18)
[2023-01-11] MEDS ORDERED: METOCLOPRAMIDE HCL INJECTION 10 MG/2 ML VIAL IVPB SCH (12:15)
[2023-01-11] MEDS ORDERED: METOPROLOL TARTRATE 25 MG TABLET (FP) PO SCH ×2 (16:03→22:00)
[2023-01-11] MEDS ORDERED: METOPROLOL TARTRATE 25 MG TABLET (FP) PO ONE (16:12)
[2023-01-11 16:51] LABS: MAGNESIUM 1.9 mg/dL (1.8-2.4)
[2023-01-11 16:59] LABS: N-TERMINAL BNP 2971.6 pg/ml (5-125)
[2023-01-11] MEDS: METOPROLOL TARTRATE 25 MG TABLET (FP) PO SCH (21:38)
[2023-01-12] MEDS: ACETAMINOPHEN 1000 MG/100 ML BAG IVPB PRN ×3 (00:07→16:19)
[2023-01-12] MEDS: HYDROCORTISONE SOD SUCCINATE 100 MG/2 ML VIAL IVPB SCH (06:03)
[2023-01-12 07:15] LABS: HEMATOCRIT 25.6 % (32.4-45.2); HEMOGLOBIN 8.8 GM/dL (10.7-15.3); MCH 30.3 pg (25.7-33.7); MCHC 34.5 g/dl (32.0-36.0); MEAN CELL VOLUME 87.7 fl (80-96); PLATELET COUNT 204 10^3/uL (134-434); RBC 2.92 M/mm3 (3.60-5.2); RDW 15.5 % (11.6-15.6); WHITE BLOOD COUNT 5.9 K/mm3 (4.0-10.0)
[2023-01-12 07:38] LABS: POTASSIUM 3.1 mmol/L (3.5-5.1)
[2023-01-12 07:40] LABS: CALCIUM 7.7 mg/dL (8.5-10.1)
[2023-01-12 07:41] LABS: BLOOD UREA NITROGEN 25.7 mg/dL (7-18); MAGNESIUM 1.7 mg/dL (1.8-2.4)
[2023-01-12 07:44] LABS: CREATININE 0.8 mg/dL (0.55-1.3); PHOSPHOROUS 2.4 mg/dL (2.5-4.9)
[2023-01-12 07:46] LABS: BILIRUBIN,TOTAL 0.3 mg/dL (0.2-1)
[2023-01-12 07:49] LABS: ALBUMIN 2.6 g/dl (3.4-5.0); TOT PROT 4.8 g/dl (6.4-8.2)
[2023-01-12] MEDS: METOPROLOL TARTRATE 25 MG TABLET (FP) PO SCH ×2 (09:14→21:01)
[2023-01-12] MEDS: CEFTRIAXONE 1 GM in DEXTROSE 5%-WATER - 50 ML IVPB SCH (09:14)
[2023-01-12] MEDS ORDERED: PANTOPRAZOLE SODIUM 40 MG VIAL IVPUSH SCH (10:00)
[2023-01-12] MEDS ORDERED: MAGNESIUM SULF 50% (8.12 MEQ/2 ML-1 GM VIAL) IVPB ONE (10:23)
[2023-01-12] MEDS ORDERED: POTASSIUM CHLORIDE ORAL LIQUID 20 MEQ/15 ML PO ONE (10:45)
[2023-01-12] MEDS: KCL 10 MEQ IVPB 10 MEQ/100 ML INFUS.BAG IVPB SCH ×3 (10:52→15:05)
[2023-01-12] MEDS ORDERED: METOCLOPRAMIDE HCL INJECTION 10 MG/2 ML VIAL IVPUSH ONE (10:57)
[2023-01-12 17:58] LABS: HEMATOCRIT 30.4 % (32.4-45.2); MCH 29.3 pg (25.7-33.7); MCHC 32.8 g/dl (32.0-36.0); MEAN CELL VOLUME 89.3 fl (80-96); MEAN PLT VOLUME 6.8 fl (7.5-11.1); PLATELET COUNT 226 10^3/uL (134-434); RBC 3.41 M/mm3 (3.60-5.2); RDW 15.7 % (11.6-15.6); WHITE BLOOD COUNT 8.1 K/mm3 (4.0-10.0)
[2023-01-12 18:15] LABS: POTASSIUM 4.5 mmol/L (3.5-5.1)
[2023-01-12 18:17] LABS: CALCIUM 8.5 mg/dL (8.5-10.1)
[2023-01-12 18:18] LABS: ALBUMIN 2.9 g/dl (3.4-5.0); MAGNESIUM 2.1 mg/dL (1.8-2.4)
[2023-01-12 18:21] LABS: CREATININE 0.8 mg/dL (0.55-1.3); PHOSPHOROUS 1.8 mg/dL (2.5-4.9)
[2023-01-12 18:22] LABS: BILIRUBIN,TOTAL 0.2 mg/dL (0.2-1)
[2023-01-12 18:23] LABS: TOT PROT 5.4 g/dl (6.4-8.2)
[2023-01-12] MEDS: MELATONIN 5 MG TABLETS PO SCH (21:01)
[2023-01-12] MEDS: SODIUM CHLORIDE 1,000 ML IV SCH (21:01)
[2023-01-12] MEDS: PANTOPRAZOLE 40 MG TABLET PO SCH (21:01)
[2023-01-12] MEDS ORDERED: MELATONIN 5 MG TABLETS PO SCH (22:00)
[2023-01-13] MEDS ORDERED: ACETAMINOPHEN 1000 MG/100 ML BAG IVPB PRN (07:09)
[2023-01-13] MEDS: HYDROCORTISONE SOD SUCCINATE 100 MG/2 ML VIAL IVPB SCH (07:16)
[2023-01-13 07:34] LABS: HEMOGLOBIN 9.7 GM/dL (10.7-15.3); MCH 30.4 pg (25.7-33.7); MCHC 34.5 g/dl (32.0-36.0); MEAN CELL VOLUME 88.1 fl (80-96); MEAN PLT VOLUME 7.1 fl (7.5-11.1); PLATELET COUNT 204 10^3/uL (134-434); RBC 3.18 M/mm3 (3.60-5.2); RDW 15.3 % (11.6-15.6); WHITE BLOOD COUNT 4.9 K/mm3 (4.0-10.0)
[2023-01-13 08:04] LABS: POTASSIUM 4.1 mmol/L (3.5-5.1)
[2023-01-13 08:13] LABS: CALCIUM 8.8 mg/dL (8.5-10.1)
[2023-01-13 08:14] LABS: ALBUMIN 2.9 g/dl (3.4-5.0); BLOOD UREA NITROGEN 13.2 mg/dL (7-18); MAGNESIUM 1.8 mg/dL (1.8-2.4)
[2023-01-13 08:17] LABS: CREATININE 0.7 mg/dL (0.55-1.3); PHOSPHOROUS 2.4 mg/dL (2.5-4.9)
[2023-01-13 08:18] LABS: BILIRUBIN,TOTAL 0.3 mg/dL (0.2-1); TOT PROT 5.3 g/dl (6.4-8.2)
[2023-01-13] MEDS ORDERED: ACETAMINOPHEN 325 MG TABLET (FP) PO PRN (09:26)
[2023-01-13] MEDS ORDERED: HEPARIN NA (PORCINE) 5,000 UNITS/ML 1ML VIAL SQ SCH (10:00)
[2023-01-13] MEDS: ENOXAPARIN NA (PORCINE) 40 MG/0.4 ML DISP.SYRIN SQ SCH (10:55)
[2023-01-13] MEDS: BUDESONIDE/FORMETEROL FUMARATE 160/4.5 mcg INHALER IH SCH ×2 (10:55→21:17)
[2023-01-13] MEDS: HYDROCORTISONE 20 MG TABLET PO SCH (10:56)
[2023-01-13] MEDS: METOPROLOL TARTRATE 25 MG TABLET (FP) PO SCH ×2 (10:56→21:16)
[2023-01-13] MEDS: LOPERAMIDE HCL 2 MG CAPSULE PO PRN ×2 (10:56→21:16)
[2023-01-13] MEDS: PANTOPRAZOLE 40 MG TABLET PO SCH ×2 (11:17→21:16)
[2023-01-13] MEDS: oxyCODONE HCL 5 MG TABLET PO PRN ×3 (11:22→23:19)
[2023-01-13] MEDS ORDERED: NAPH,MB-DB/K PH,MBDB POWDER PACKET PO ONE (16:27)
[2023-01-13] MEDS: MELATONIN 5 MG TABLETS PO SCH (21:16)
[2023-01-13] MEDS: ATORVASTATIN CA 80 MG TABLET (FP) PO SCH (21:16)
[2023-01-14 07:43] LABS: POTASSIUM 3.2 mmol/L (3.5-5.1)
[2023-01-14 07:45] LABS: BLOOD UREA NITROGEN 6.8 mg/dL (7-18); MAGNESIUM 1.5 mg/dL (1.8-2.4)
[2023-01-14 07:48] LABS: CREATININE 0.7 mg/dL (0.55-1.3); PHOSPHOROUS 2.4 mg/dL (2.5-4.9)
[2023-01-14 07:50] LABS: BILIRUBIN,TOTAL 0.2 mg/dL (0.2-1); TOT PROT 5.8 g/dl (6.4-8.2)
[2023-01-14] MEDS: oxyCODONE HCL 5 MG TABLET PO PRN ×2 (07:58→14:15)
[2023-01-14 08:20] LABS: BASO % 0.5 % (0-2.0); EOS % 3.3 % (0-4.5); HEMATOCRIT 29.9 % (32.4-45.2); HEMOGLOBIN 10.6 GM/dL (10.7-15.3); LYMPH % 26.6 % (8-40); MCH 30.7 pg (25.7-33.7); MCHC 35.6 g/dl (32.0-36.0); MEAN CELL VOLUME 86.4 fl (80-96); MEAN PLT VOLUME 7.2 fl (7.5-11.1); MONO % 8.7 % (3.8-10.2); NEUT % 60.9 % (42.8-82.8); PLATELET COUNT 232 10^3/uL (134-434); RBC 3.45 M/mm3 (3.60-5.2); RDW 15.2 % (11.6-15.6); WHITE BLOOD COUNT 5.1 K/mm3 (4.0-10.0)
[2023-01-14] MEDS: ENOXAPARIN NA (PORCINE) 40 MG/0.4 ML DISP.SYRIN SQ SCH (09:23)
[2023-01-14] MEDS: HYDROCORTISONE 20 MG TABLET PO SCH (09:23)
[2023-01-14] MEDS: METOPROLOL TARTRATE 25 MG TABLET (FP) PO SCH ×2 (09:23→21:39)
[2023-01-14] MEDS: BUDESONIDE/FORMETEROL FUMARATE 160/4.5 mcg INHALER IH SCH ×2 (09:23→21:39)
[2023-01-14] MEDS: PANTOPRAZOLE 40 MG TABLET PO SCH ×2 (09:23→21:39)
[2023-01-14] MEDS ORDERED: ESCITALOPRAM OXALATE 10 MG TABLET PO SCH (10:00)
[2023-01-14] MEDS ORDERED: ACETAMINOPHEN 1000 MG/100 ML BAG IVPB PRN (10:40)
[2023-01-14] MEDS ORDERED: MAGNESIUM 1GM/D5W 100ML - 100 ML IVPB IVPB ONE (12:19)
[2023-01-14] MEDS: GABAPENTIN 300 MG CAPSULE PO SCH ×2 (14:15→21:39)
[2023-01-14] MEDS: ATORVASTATIN CA 80 MG TABLET (FP) PO SCH (21:39)
[2023-01-14] MEDS: MELATONIN 5 MG TABLETS PO SCH (21:39)
[2023-01-15] MEDS: oxyCODONE HCL 5 MG TABLET PO PRN ×4 (02:05→22:11)
[2023-01-15] MEDS: GABAPENTIN 300 MG CAPSULE PO SCH ×3 (05:23→22:11)
[2023-01-15] MEDS ORDERED: POTASSIUM CHLORIDE ORAL LIQUID 20 MEQ/15 ML PO ONE (09:10)
[2023-01-15] MEDS: POLYETHYLENE GLYCOL (HEALTHYLAX) 3350 17 GM PACKET PO SCH (10:10)
[2023-01-15] MEDS: ESCITALOPRAM OXALATE 10 MG TABLET PO SCH (10:10)
[2023-01-15] MEDS: ENOXAPARIN NA (PORCINE) 40 MG/0.4 ML DISP.SYRIN SQ SCH (10:10)
[2023-01-15] MEDS: BUDESONIDE/FORMETEROL FUMARATE 160/4.5 mcg INHALER IH SCH ×2 (10:11→22:16)
[2023-01-15] MEDS: METOPROLOL TARTRATE 25 MG TABLET (FP) PO SCH ×2 (10:11→22:12)
[2023-01-15] MEDS: PANTOPRAZOLE 40 MG TABLET PO SCH ×2 (10:11→22:12)
[2023-01-15] MEDS: HYDROCORTISONE 20 MG TABLET PO SCH (10:12)
[2023-01-15 22:07] LABS: POTASSIUM 4.9 mmol/L (3.5-5.1)
[2023-01-15] MEDS: MELATONIN 5 MG TABLETS PO SCH (22:10)
[2023-01-15] MEDS: ATORVASTATIN CA 80 MG TABLET (FP) PO SCH (22:11)
[2023-01-15 22:13] LABS: BLOOD UREA NITROGEN 15.1 mg/dL (7-18)
[2023-01-15 22:17] LABS: ALBUMIN 3.1 g/dl (3.4-5.0); CALCIUM 8.8 mg/dL (8.5-10.1)
[2023-01-15 22:23] LABS: BILIRUBIN,TOTAL 0.5 mg/dL (0.2-1)
[2023-01-15 22:25] LABS: TOT PROT 5.9 g/dl (6.4-8.2)
[2023-01-16] MEDS: oxyCODONE HCL 5 MG TABLET PO PRN ×3 (05:18→21:57)
[2023-01-16] MEDS: GABAPENTIN 300 MG CAPSULE PO SCH ×3 (05:19→21:56)
[2023-01-16 08:57] LABS: POTASSIUM 4.3 mmol/L (3.5-5.1)
[2023-01-16 09:09] LABS: ALBUMIN 2.9 g/dl (3.4-5.0); CALCIUM 9.1 mg/dL (8.5-10.1); MAGNESIUM 1.9 mg/dL (1.8-2.4)
[2023-01-16 09:11] LABS: BLOOD UREA NITROGEN 14.7 mg/dL (7-18)
[2023-01-16 09:12] LABS: CREATININE 0.9 mg/dL (0.55-1.3)
[2023-01-16 09:14] LABS: BILIRUBIN,TOTAL 0.6 mg/dL (0.2-1); TOT PROT 5.6 g/dl (6.4-8.2)
[2023-01-16] MEDS: BUDESONIDE/FORMETEROL FUMARATE 160/4.5 mcg INHALER IH SCH ×2 (10:19→21:55)
[2023-01-16] MEDS: ESCITALOPRAM OXALATE 10 MG TABLET PO SCH (10:39)
[2023-01-16] MEDS: HYDROCORTISONE 20 MG TABLET PO SCH (10:39)
[2023-01-16] MEDS: PANTOPRAZOLE 40 MG TABLET PO SCH ×2 (10:40→21:56)
[2023-01-16] MEDS: METOPROLOL TARTRATE 25 MG TABLET (FP) PO SCH ×2 (13:26→21:56)
[2023-01-16] MEDS: ENOXAPARIN NA (PORCINE) 40 MG/0.4 ML DISP.SYRIN SQ SCH (13:27)
[2023-01-16] MEDS: POLYETHYLENE GLYCOL (HEALTHYLAX) 3350 17 GM PACKET PO SCH (14:26)
[2023-01-16] MEDS: MELATONIN 5 MG TABLETS PO SCH (21:56)
[2023-01-16] MEDS: ATORVASTATIN CA 80 MG TABLET (FP) PO SCH (21:56)
[2023-01-17] MEDS: GABAPENTIN 300 MG CAPSULE PO SCH ×2 (06:33→13:40)
[2023-01-17] MEDS: oxyCODONE HCL 5 MG TABLET PO PRN ×2 (06:36→12:48)
[2023-01-17 08:58] VITALS: RESP 18
[2023-01-17] MEDS: BUDESONIDE/FORMETEROL FUMARATE 160/4.5 mcg INHALER IH SCH (09:01)
[2023-01-17] MEDS: METOPROLOL TARTRATE 25 MG TABLET (FP) PO SCH (09:01)
[2023-01-17] MEDS ORDERED: REGADENOSON 0.4 MG/5 ML PRE-FILLED SYRINGE IVPUSH ONE ×2 (09:21→10:00)
[2023-01-17] MEDS: ENOXAPARIN NA (PORCINE) 40 MG/0.4 ML DISP.SYRIN SQ SCH (10:58)
[2023-01-17] MEDS: HYDROCORTISONE 20 MG TABLET PO SCH (10:59)
[2023-01-17] MEDS: ESCITALOPRAM OXALATE 10 MG TABLET PO SCH (10:59)
[2023-01-17] MEDS: PANTOPRAZOLE 40 MG TABLET PO SCH (10:59)
[2023-01-17] MEDS: POLYETHYLENE GLYCOL (HEALTHYLAX) 3350 17 GM PACKET PO SCH (10:59)
[2023-01-17 11:06] VITALS: BMI 31.6
[2023-01-17 14:31] VITALS: BP 145/76; PULSE 68; TEMP 98.2
== END 2023-01-17 14:39 | disposition home or self-care (01) | DRG 377 ==
LOC: JER 10:10 → JERBED 18:00 → JICU 20:52 → UNDODISIN 01-11 17:15 → J7W 01-15 02:00
PROVIDERS: ADMIT Internal Medicine; ATTEND Internal Medicine
PROC: 0DB68ZX Excision of Stomach, Via Natural or Artificial Opening Endoscopic, Diagnostic (ICD-10-PCS; 2023-01-12)
PROC: 0DB58ZX Excision of Esophagus, Via Natural or Artificial Opening Endoscopic, Diagnostic (ICD-10-PCS; principal; 2023-01-12 14:00)
DX: K92.2 Gastrointestinal hemorrhage, unspecified (principal); K20.91 Esophagitis, unspecified with bleeding; R57.1 Hypovolemic shock; E27.40 Unspecified adrenocortical insufficiency; N17.9 Acute kidney failure, unspecified; D62 Acute posthemorrhagic anemia; I10 Essential (primary) hypertension; J44.9 Chronic obstructive pulmonary disease, unspecified; I34.1 Nonrheumatic mitral (valve) prolapse; K44.9 Diaphragmatic hernia without obstruction or gangrene; E86.0 Dehydration; I95.9 Hypotension, unspecified; R00.0 Tachycardia, unspecified; R19.7 Diarrhea, unspecified; K22.70 Barrett's esophagus without dysplasia; K21.9 Gastro-esophageal reflux disease without esophagitis; K57.90 Diverticulosis of intestine, part unspecified, without perforation or abscess without bleeding; R11.2 Nausea with vomiting, unspecified; R33.9 Retention of urine, unspecified; K29.60 Other gastritis without bleeding; Z87.11 Personal history of peptic ulcer disease; E87.6 Hypokalemia
CPT/HCPCS: 0241U-QW; 36415; 71045-TC-FY; 71250-TC; 73562-TC-LT-FY; 73562-TC-RT-FY; 74176-TC; 76775-TC; 78452-TC; 80048; 80053; 80061; 81003; 82272; 82550; 82553; 82570; 82803; 82962; 83051; 83605; 83735; 83880; 84100; 84156; 84300; 84439; 84443; 84484; 85025; 85027; 85610; 85730; 86850; 86900; 86901; 87040; 87086; 88305-TC; 93005; 93010; 93017; 94010; 97116-GP; 97161-GP; 99291; A9502; J2785

== ENCOUNTER 2023-03-26 09:37 | Inpatient (IN) | payer OTHER ==
[2023-03-26] MEDS ORDERED: ONDANSETRON *ODT* 4 MG TABLET ONE (10:20)
[2023-03-26] MEDS ORDERED: FAMOTIDINE 20 MG/50 ML IVPB 20 MG/50 ML MG IVPB ONE ×2 (10:56→11:08)
[2023-03-26] MEDS ORDERED: ONDANSETRON 4 MG/2 ML VIAL IVPB ONE (10:56)
[2023-03-26] MEDS ORDERED: ONDANSETRON 4 MG/2 ML VIAL ONE (11:08)
[2023-03-26 11:59] LABS: BASO % 0.9 % (0-2.0); EOS % 0.8 % (0-4.5); HEMATOCRIT 41.4 % (32.4-45.2); HEMOGLOBIN 13.9 GM/dL (10.7-15.3); LYMPH % 20.2 % (8-40); MCH 28.3 pg (25.7-33.7); MCHC 33.7 g/dl (32.0-36.0); MEAN PLT VOLUME 6.8 fl (7.5-11.1); MONO % 9.1 % (3.8-10.2); PLATELET COUNT 515 10^3/uL (134-434); RBC 4.93 M/mm3 (3.60-5.2); WHITE BLOOD COUNT 13.4 K/mm3 (4.0-10.0)
[2023-03-26 12:15] LABS: INR 1.03 (0.83-1.09)
[2023-03-26 12:18] LABS: ACTIVATED PTT 24.1 SECONDS (25.2-36.5)
[2023-03-26 12:21] LABS: POTASSIUM 3.7 mmol/L (3.5-5.1)
[2023-03-26 12:23] LABS: CALCIUM 10.1 mg/dL (8.5-10.1)
[2023-03-26 12:24] LABS: ALBUMIN 4.2 g/dl (3.4-5.0); BLOOD UREA NITROGEN 22.5 mg/dL (7-18); LACTIC ACID 3.6 mmol/L (0.4-2.0)
[2023-03-26 12:27] LABS: CREATININE 1.6 mg/dL (0.55-1.3)
[2023-03-26 12:28] LABS: BILIRUBIN,TOTAL 0.6 mg/dL (0.2-1)
[2023-03-26 12:29] LABS: TOT PROT 7.7 g/dl (6.4-8.2)
[2023-03-26] MEDS ORDERED: SODIUM CHLORIDE 0.9% 500 ML INFUS.BAG IV ONE (14:01)
[2023-03-26 21:30] LABS: BASO % 0.9 % (0-2.0); EOS % 1.7 % (0-4.5); HEMATOCRIT 41.1 % (32.4-45.2); HEMOGLOBIN 13.8 GM/dL (10.7-15.3); LYMPH % 19.9 % (8-40); MCHC 33.6 g/dl (32.0-36.0); MEAN CELL VOLUME 83.3 fl (80-96); MEAN PLT VOLUME 6.4 fl (7.5-11.1); MONO % 10.6 % (3.8-10.2); NEUT % 66.9 % (42.8-82.8); PLATELET COUNT 476 10^3/uL (134-434); RBC 4.93 M/mm3 (3.60-5.2); RDW 18.4 % (11.6-15.6); WHITE BLOOD COUNT 10.6 K/mm3 (4.0-10.0)
[2023-03-26] MEDS ORDERED: ONDANSETRON 4 MG/2 ML VIAL IVPUSH ONE (21:41)
[2023-03-26] MEDS ORDERED: TRIMETHOBENZAMIDE HCL 200MG/2ML INJ IM ONE ×2 (21:42→22:03)
[2023-03-26] MEDS ORDERED: morphine CARPU-JECT 2 MG/1 ML DISP.SYRIN IVPUSH PRN (22:11)
[2023-03-26] MEDS ORDERED: SODIUM CHLORIDE 1,000 ML IV SCH (22:15)
[2023-03-26 22:31] LABS: EPI CELLS 19 /uL (0-25.1); HYALINE CASTS 2 /uL (0-3.1); PH,URINE 5.5 (5.0-8.0); URINE APPEARANCE CLOUDY; URINE BACTERIA >9,000 /uL (0-1359); URINE BILIRUBIN NEGATIVE (NEGATIVE); URINE COLOR YELLOW; URINE GLUCOSE (UA) NEGATIVE (NEGATIVE); URINE KETONE TRACE (NEGATIVE); URINE LEUK ESTERASE NEGATIVE (NEGATIVE); URINE NITRITE NEGATIVE (NEGATIVE); URINE PROTEIN 2+ (NEGATIVE); URINE RBC 4 /uL (0-23.9); URINE UROBILINOGEN 0.2 mg/dL (0.2-1.0); URINE WBC 33 /uL (0-25.8)
[2023-03-27 09:21] LABS: HEMATOCRIT 40.1 % (32.4-45.2); HEMOGLOBIN 13.8 GM/dL (10.7-15.3); MCH 28.8 pg (25.7-33.7); MCHC 34.3 g/dl (32.0-36.0); MEAN CELL VOLUME 83.8 fl (80-96); MEAN PLT VOLUME 6.5 fl (7.5-11.1); PLATELET COUNT 389 10^3/uL (134-434); RBC 4.79 M/mm3 (3.60-5.2); WHITE BLOOD COUNT 8.1 K/mm3 (4.0-10.0)
[2023-03-27 09:42] LABS: POTASSIUM 3.9 mmol/L (3.5-5.1)
[2023-03-27 09:46] LABS: ALBUMIN 3.8 g/dl (3.4-5.0); CALCIUM 9.9 mg/dL (8.5-10.1)
[2023-03-27 09:47] LABS: BLOOD UREA NITROGEN 39.9 mg/dL (7-18)
[2023-03-27 09:50] LABS: MAGNESIUM 1.8 mg/dL (1.8-2.4)
[2023-03-27 09:53] LABS: BILIRUBIN,TOTAL 0.6 mg/dL (0.2-1); CREATININE 2.6 mg/dL (0.55-1.3); PHOSPHOROUS 5.3 mg/dL (2.5-4.9)
[2023-03-27 09:54] LABS: TOT PROT 7.1 g/dl (6.4-8.2)
[2023-03-27] MEDS ORDERED: PANTOPRAZOLE 40 MG TABLET PO SCH (10:30)
[2023-03-27] MEDS ORDERED: SODIUM CHLORIDE 1,000 ML IV STA (10:42)
[2023-03-27] MEDS ORDERED: INSULIN (NOVOLOG) ASPART 100 UNITS/ML 10ML VIAL ONE (11:19)
[2023-03-27] MEDS: INSULIN SLIDING SCALE (NOVOLOG) 1 VIAL SQ SCH ×2 (11:31→16:53)
[2023-03-27] MEDS: SODIUM CHLORIDE 1,000 ML IV SCH (14:10)
[2023-03-27] MEDS: GABAPENTIN 300 MG CAPSULE PO SCH ×2 (14:10→22:00)
[2023-03-27] MEDS: HYDROCORTISONE 10 MG TABLET PO SCH ×3 (15:05→22:00)
[2023-03-27] MEDS: SUCRALFATE 1 GM/10 ML UNIT DOSE CUPS PO SCH (16:47)
[2023-03-27 21:21] LABS: POTASSIUM 3.8 mmol/L (3.5-5.1)
[2023-03-27 21:23] LABS: BLOOD UREA NITROGEN 40.2 mg/dL (7-18)
[2023-03-27 21:24] LABS: ALBUMIN 3.1 g/dl (3.4-5.0)
[2023-03-27 21:27] LABS: CREATININE 2.2 mg/dL (0.55-1.3)
[2023-03-27 21:28] LABS: BILIRUBIN,TOTAL 0.3 mg/dL (0.2-1); TOT PROT 5.8 g/dl (6.4-8.2)
[2023-03-27 21:40] LABS: CALCIUM 8.3 mg/dL (8.5-10.1)
[2023-03-27] MEDS: PANTOPRAZOLE 40 MG TABLET PO SCH (22:00)
[2023-03-27] MEDS: METOPROLOL TARTRATE 25 MG TABLET (FP) PO SCH (22:00)
[2023-03-28] MEDS: BUDESONIDE/FORMETEROL FUMARATE 160/4.5 mcg INHALER IH SCH ×3 (00:06→21:15)
[2023-03-28] MEDS: INSULIN SLIDING SCALE (NOVOLOG) 1 VIAL SQ SCH ×5 (00:06→21:15)
[2023-03-28] MEDS ORDERED: TRIMETHOBENZAMIDE HCL 200MG/2ML INJ IM ONE (02:04)
[2023-03-28] MEDS: HYDROCORTISONE 20 MG TABLET PO SCH (06:09)
[2023-03-28] MEDS: GABAPENTIN 300 MG CAPSULE PO SCH ×3 (06:10→21:11)
[2023-03-28] MEDS: SUCRALFATE 1 GM/10 ML UNIT DOSE CUPS PO SCH ×3 (07:18→17:06)
[2023-03-28] MEDS: TAMSULOSIN HCL 0.4 MG CAP PO SCH (07:53)
[2023-03-28] MEDS: HYDROCORTISONE 10 MG TABLET PO SCH ×3 (10:19→23:54)
[2023-03-28] MEDS: FOLIC ACID 1 MG TABLET (FP) PO SCH (10:19)
[2023-03-28] MEDS: PANTOPRAZOLE 40 MG TABLET PO SCH ×2 (10:19→21:11)
[2023-03-28] MEDS: METOPROLOL TARTRATE 25 MG TABLET (FP) PO SCH ×2 (10:19→21:11)
[2023-03-28] MEDS: ESCITALOPRAM OXALATE 10 MG TABLET PO SCH (10:19)
[2023-03-28] MEDS: SODIUM CHLORIDE 1,000 ML IV SCH (10:56)
[2023-03-28 10:59] LABS: BASO % 0.5 % (0-2.0); EOS % 1.3 % (0-4.5); HEMATOCRIT 31.3 % (32.4-45.2); HEMOGLOBIN 10.1 GM/dL (10.7-15.3); LYMPH % 10.3 % (8-40); MCH 27.7 pg (25.7-33.7); MCHC 32.2 g/dl (32.0-36.0); MEAN PLT VOLUME 7.1 fl (7.5-11.1); MONO % 7.1 % (3.8-10.2); NEUT % 80.8 % (42.8-82.8); PLATELET COUNT 310 10^3/uL (134-434); RBC 3.64 M/mm3 (3.60-5.2); RDW 17.8 % (11.6-15.6); WHITE BLOOD COUNT 6.8 K/mm3 (4.0-10.0)
[2023-03-28 11:19] LABS: POTASSIUM 3.4 mmol/L (3.5-5.1)
[2023-03-28 11:26] LABS: CALCIUM 8.2 mg/dL (8.5-10.1)
[2023-03-28 11:27] LABS: ALBUMIN 2.9 g/dl (3.4-5.0); MAGNESIUM 1.6 mg/dL (1.8-2.4)
[2023-03-28 11:29] LABS: CREATININE 1.5 mg/dL (0.55-1.3); PHOSPHOROUS 3.2 mg/dL (2.5-4.9)
[2023-03-28 11:31] LABS: BILIRUBIN,TOTAL 0.2 mg/dL (0.2-1); TOT PROT 5.3 g/dl (6.4-8.2)
[2023-03-28] MEDS ORDERED: MAGNESIUM SULF 50% (8.12 MEQ/2 ML-1 GM VIAL) IVPB ONE (14:40)
[2023-03-28] MEDS ORDERED: POTASSIUM CHLORIDE ORAL LIQUID 20 MEQ/15 ML PO ONE (14:41)
[2023-03-29] MEDS: ZOLPIDEM TARTRATE 5 MG TABLET PO PRN ×2 (00:01→21:41)
[2023-03-29] MEDS: HYDROCORTISONE 20 MG TABLET PO SCH (05:30)
[2023-03-29] MEDS: GABAPENTIN 300 MG CAPSULE PO SCH ×3 (05:30→21:35)
[2023-03-29] MEDS: SUCRALFATE 1 GM/10 ML UNIT DOSE CUPS PO SCH ×3 (06:24→16:49)
[2023-03-29] MEDS: INSULIN SLIDING SCALE (NOVOLOG) 1 VIAL SQ SCH ×4 (06:25→20:59)
[2023-03-29 09:56] LABS: BASO % 0.6 % (0-2.0); EOS % 3.2 % (0-4.5); HEMATOCRIT 28.4 % (32.4-45.2); HEMOGLOBIN 9.2 GM/dL (10.7-15.3); LYMPH % 13.3 % (8-40); MCHC 32.6 g/dl (32.0-36.0); MEAN CELL VOLUME 85.8 fl (80-96); MEAN PLT VOLUME 7.3 fl (7.5-11.1); MONO % 7.5 % (3.8-10.2); NEUT % 75.4 % (42.8-82.8); PLATELET COUNT 262 10^3/uL (134-434); RDW 17.5 % (11.6-15.6); WHITE BLOOD COUNT 5.1 K/mm3 (4.0-10.0)
[2023-03-29 10:15] LABS: POTASSIUM 4.1 mmol/L (3.5-5.1)
[2023-03-29 10:18] LABS: ALBUMIN 2.9 g/dl (3.4-5.0); CALCIUM 8.7 mg/dL (8.5-10.1)
[2023-03-29] MEDS: PANTOPRAZOLE 40 MG TABLET PO SCH ×2 (10:19→21:35)
[2023-03-29] MEDS: TAMSULOSIN HCL 0.4 MG CAP PO SCH (10:19)
[2023-03-29] MEDS: FOLIC ACID 1 MG TABLET (FP) PO SCH (10:19)
[2023-03-29] MEDS: ESCITALOPRAM OXALATE 10 MG TABLET PO SCH (10:19)
[2023-03-29] MEDS: METOPROLOL TARTRATE 25 MG TABLET (FP) PO SCH ×2 (10:19→21:35)
[2023-03-29] MEDS: HYDROCORTISONE 10 MG TABLET PO SCH ×4 (10:20→21:36)
[2023-03-29 10:21] LABS: PHOSPHOROUS 2.9 mg/dL (2.5-4.9)
[2023-03-29] MEDS: BUDESONIDE/FORMETEROL FUMARATE 160/4.5 mcg INHALER IH SCH ×2 (10:21→21:39)
[2023-03-29 10:23] LABS: BILIRUBIN,TOTAL 0.3 mg/dL (0.2-1); TOT PROT 5.4 g/dl (6.4-8.2)
[2023-03-29 12:57] VITALS: BMI 31.9
[2023-03-30] MEDS: GABAPENTIN 300 MG CAPSULE PO SCH ×3 (05:54→21:20)
[2023-03-30] MEDS: HYDROCORTISONE 20 MG TABLET PO SCH (05:54)
[2023-03-30] MEDS: INSULIN SLIDING SCALE (NOVOLOG) 1 VIAL SQ SCH ×4 (06:27→21:21)
[2023-03-30] MEDS: SUCRALFATE 1 GM/10 ML UNIT DOSE CUPS PO SCH ×3 (06:44→17:51)
[2023-03-30] MEDS: TAMSULOSIN HCL 0.4 MG CAP PO SCH ×2 (08:01→09:25)
[2023-03-30] MEDS: FOLIC ACID 1 MG TABLET (FP) PO SCH (09:25)
[2023-03-30] MEDS: PANTOPRAZOLE 40 MG TABLET PO SCH ×2 (09:25→21:20)
[2023-03-30] MEDS: HYDROCORTISONE 10 MG TABLET PO SCH ×4 (09:25→21:20)
[2023-03-30] MEDS: METOPROLOL TARTRATE 25 MG TABLET (FP) PO SCH ×2 (09:25→21:20)
[2023-03-30] MEDS: ESCITALOPRAM OXALATE 10 MG TABLET PO SCH (09:25)
[2023-03-30] MEDS: BUDESONIDE/FORMETEROL FUMARATE 160/4.5 mcg INHALER IH SCH ×2 (09:27→21:21)
[2023-03-30 10:06] LABS: BASO % 0.5 % (0-2.0); EOS % 2.2 % (0-4.5); HEMATOCRIT 26.6 % (32.4-45.2); HEMOGLOBIN 8.6 GM/dL (10.7-15.3); LYMPH % 17.2 % (8-40); MCH 27.9 pg (25.7-33.7); MCHC 32.5 g/dl (32.0-36.0); MEAN CELL VOLUME 85.8 fl (80-96); MEAN PLT VOLUME 7.3 fl (7.5-11.1); MONO % 9.5 % (3.8-10.2); NEUT % 70.6 % (42.8-82.8); PLATELET COUNT 226 10^3/uL (134-434); RBC 3.09 M/mm3 (3.60-5.2); RDW 17.4 % (11.6-15.6); WHITE BLOOD COUNT 4.3 K/mm3 (4.0-10.0)
[2023-03-30 10:35] LABS: POTASSIUM 4.1 mmol/L (3.5-5.1)
[2023-03-30 10:43] LABS: CALCIUM 8.9 mg/dL (8.5-10.1)
[2023-03-30 10:44] LABS: ALBUMIN 2.9 g/dl (3.4-5.0); BLOOD UREA NITROGEN 14.7 mg/dL (7-18)
[2023-03-30 10:46] LABS: BILIRUBIN,TOTAL 0.3 mg/dL (0.2-1); CREATININE 0.9 mg/dL (0.55-1.3); PHOSPHOROUS 2.4 mg/dL (2.5-4.9)
[2023-03-30 10:48] LABS: TOT PROT 5.4 g/dl (6.4-8.2)
[2023-03-30] MEDS ORDERED: NAPH,MB-DB/K PH,MBDB POWDER PACKET PO ONE (11:42)
[2023-03-30] MEDS ORDERED: LIDOCAINE VISCOUS 2% ORAL/TOP 15 ML UNIT-DOSE CUP ONE (12:41)
[2023-03-30 14:37] VITALS: RESP 18
[2023-03-30] MEDS: ZOLPIDEM TARTRATE 5 MG TABLET PO PRN (22:49)
[2023-03-31 03:06] VITALS: BP 128/71; PULSE 67; TEMP 98.2
[2023-03-31] MEDS: HYDROCORTISONE 20 MG TABLET PO SCH (05:41)
[2023-03-31] MEDS: GABAPENTIN 300 MG CAPSULE PO SCH ×2 (05:41→13:31)
[2023-03-31] MEDS: INSULIN SLIDING SCALE (NOVOLOG) 1 VIAL SQ SCH ×2 (06:50→11:51)
[2023-03-31] MEDS: SUCRALFATE 1 GM/10 ML UNIT DOSE CUPS PO SCH ×2 (06:50→11:45)
[2023-03-31] MEDS: TAMSULOSIN HCL 0.4 MG CAP PO SCH (08:48)
[2023-03-31] MEDS: PANTOPRAZOLE 40 MG TABLET PO SCH (09:01)
[2023-03-31] MEDS: METOPROLOL TARTRATE 25 MG TABLET (FP) PO SCH (09:01)
[2023-03-31] MEDS: HYDROCORTISONE 10 MG TABLET PO SCH ×2 (09:01→13:31)
[2023-03-31] MEDS: FOLIC ACID 1 MG TABLET (FP) PO SCH (09:01)
[2023-03-31] MEDS: ESCITALOPRAM OXALATE 10 MG TABLET PO SCH (09:01)
[2023-03-31] MEDS: BUDESONIDE/FORMETEROL FUMARATE 160/4.5 mcg INHALER IH SCH (09:02)
[2023-03-31 10:09] LABS: EOS % 1.4 % (0-4.5); HEMATOCRIT 26.7 % (32.4-45.2); HEMOGLOBIN 9.1 GM/dL (10.7-15.3); LYMPH % 18.6 % (8-40); MCH 29.2 pg (25.7-33.7); MCHC 34.2 g/dl (32.0-36.0); MEAN CELL VOLUME 85.3 fl (80-96); MEAN PLT VOLUME 7.5 fl (7.5-11.1); MONO % 10.6 % (3.8-10.2); NEUT % 68.4 % (42.8-82.8); RBC 3.13 M/mm3 (3.60-5.2); RDW 17.7 % (11.6-15.6); WHITE BLOOD COUNT 4.8 K/mm3 (4.0-10.0)
[2023-03-31 10:21] LABS: POTASSIUM 4.2 mmol/L (3.5-5.1)
[2023-03-31 10:32] LABS: CALCIUM 9.2 mg/dL (8.5-10.1)
[2023-03-31 10:33] LABS: BLOOD UREA NITROGEN 12.4 mg/dL (7-18); MAGNESIUM 1.9 mg/dL (1.8-2.4)
[2023-03-31 10:36] LABS: CREATININE 0.9 mg/dL (0.55-1.3); PHOSPHOROUS 2.2 mg/dL (2.5-4.9)
[2023-03-31 10:37] LABS: BILIRUBIN,TOTAL 0.4 mg/dL (0.2-1); TOT PROT 5.5 g/dl (6.4-8.2)
[2023-03-31 10:58] LABS: PLATELET COUNT 209 10^3/uL (134-434)
[2023-04-01] MEDS ORDERED: ERGOCALCIFEROL (VIT D2) 50,000 UNIT (1.25 MG) CAPSULE PO SCH (10:00)
== END 2023-03-31 16:29 | disposition home or self-care (01) | DRG 392 ==
LOC: SUPCPDRO 09:37 → JER 09:37 → JERBED 19:00 → J6S 03-27 02:36
PROVIDERS: ADMIT Internal Medicine; ATTEND Internal Medicine
PROC: 0DJ08ZZ Inspection of Upper Intestinal Tract, Via Natural or Artificial Opening Endoscopic (ICD-10-PCS; principal; 2023-03-30 13:00)
DX: K31.84 Gastroparesis (principal); K92.0 Hematemesis; N17.9 Acute kidney failure, unspecified; E27.40 Unspecified adrenocortical insufficiency; I10 Essential (primary) hypertension; K20.90 Esophagitis, unspecified without bleeding; J44.9 Chronic obstructive pulmonary disease, unspecified; G89.29 Other chronic pain; K59.00 Constipation, unspecified; K44.9 Diaphragmatic hernia without obstruction or gangrene; F17.200 Nicotine dependence, unspecified, uncomplicated; K29.60 Other gastritis without bleeding; K57.90 Diverticulosis of intestine, part unspecified, without perforation or abscess without bleeding; D72.829 Elevated white blood cell count, unspecified; Z91.81 History of falling; Z87.11 Personal history of peptic ulcer disease; R73.03 Prediabetes
CPT/HCPCS: 36415; 71045-TC-FY; 74176-TC; 80048; 80053; 81003; 82272; 82962; 83036; 83605; 83690; 83735; 84100; 84484; 85025; 85027; 85610; 85730; 86850; 86900; 86901; 87086; 93005; 93010; 99285-25

== ENCOUNTER 2023-07-02 09:38 | Inpatient (IN) | payer OTHER ==
[2023-07-02] MEDS ORDERED: LACTATED RINGERS SOLUTION 1000 ML INFUS.BAG IV ONE ×2 (10:18→14:00)
[2023-07-02] MEDS ORDERED: PANTOPRAZOLE SODIUM 40 MG VIAL IVPUSH ONE (10:18)
[2023-07-02] MEDS ORDERED: ONDANSETRON 4 MG/2 ML VIAL IVPUSH ONE (10:29)
[2023-07-02] MEDS ORDERED: morphine CARPU-JECT 4 MG/1 ML DISP.SYRIN IVPUSH ONE (10:37)
[2023-07-02] MEDS ORDERED: PANTOPRAZOLE SODIUM 40 MG VIAL ONE (11:21)
[2023-07-02] MEDS ORDERED: morphine SULFATE 4 MG/ML VIAL ONE (11:21)
[2023-07-02] MEDS ORDERED: ONDANSETRON 4 MG/2 ML VIAL ONE (11:21)
[2023-07-02 13:04] LABS: BASO % 0.6 % (0-2.0); EOS % 1.5 % (0-4.5); HEMATOCRIT 41.3 % (32.4-45.2); HEMOGLOBIN 13.3 GM/dL (10.7-15.3); LYMPH % 13.4 % (8-40); MCH 25.3 pg (25.7-33.7); MCHC 32.2 g/dl (32.0-36.0); MEAN CELL VOLUME 78.5 fl (80-96); MEAN PLT VOLUME 6.6 fl (7.5-11.1); MONO % 7.5 % (3.8-10.2); PLATELET COUNT 703 10^3/uL (134-434); RBC 5.26 M/mm3 (3.60-5.2); RDW 18.4 % (11.6-15.6); WHITE BLOOD COUNT 11.6 K/mm3 (4.0-10.0)
[2023-07-02 13:13] LABS: INR 1.08 (0.83-1.09); PROTHROMBIN TIME (PATIENT) 12.5 SEC (9.7-13.0)
[2023-07-02 13:21] LABS: POTASSIUM 5.3 mmol/L (3.5-5.1)
[2023-07-02 13:23] LABS: CALCIUM 10.1 mg/dL (8.5-10.1)
[2023-07-02 13:24] LABS: ALBUMIN 4.2 g/dl (3.4-5.0); MAGNESIUM 1.8 mg/dL (1.8-2.4)
[2023-07-02 13:27] LABS: PHOSPHOROUS 3.7 mg/dL (2.5-4.9)
[2023-07-02 13:29] LABS: BILIRUBIN,TOTAL 0.9 mg/dL (0.2-1)
[2023-07-02 13:37] LABS: LACTIC ACID 3.5 mmol/L (0.4-2.0)
[2023-07-02] MEDS ORDERED: METOCLOPRAMIDE HCL INJECTION 10 MG/2 ML VIAL IVPUSH ONE (14:35)
[2023-07-02] MEDS ORDERED: ASPIRIN 81 MG CHEWABLE TABLETS PO ONE (17:03)
[2023-07-02] MEDS ORDERED: METOCLOPRAMIDE HCL INJECTION 10 MG/2 ML VIAL ONE (17:11)
[2023-07-02] MEDS ORDERED: ASPIRIN 81 MG CHEWABLE TABLETS ONE (17:20)
[2023-07-02] MEDS ORDERED: DEXTROSE 5%-0.45% SALINE 1,000 ML IV SCH (18:30)
[2023-07-02 21:22] LABS: LACTIC ACID 2.7 mmol/L (0.4-2.0)
[2023-07-02 22:09] LABS: BASO % 0.8 % (0-2.0); HEMATOCRIT 35.1 % (32.4-45.2); HEMOGLOBIN 10.9 GM/dL (10.7-15.3); LYMPH % 18.8 % (8-40); MCH 25.3 pg (25.7-33.7); MCHC 31.2 g/dl (32.0-36.0); MEAN CELL VOLUME 81.1 fl (80-96); MEAN PLT VOLUME 6.6 fl (7.5-11.1); MONO % 9.4 % (3.8-10.2); PLATELET COUNT 532 10^3/uL (134-434); RBC 4.33 M/mm3 (3.60-5.2); WHITE BLOOD COUNT 8.3 K/mm3 (4.0-10.0)
[2023-07-02 22:49] VITALS: BMI 27.4
[2023-07-02] MEDS: METOPROLOL TARTRATE 25 MG TABLET (FP) PO SCH (22:58)
[2023-07-02] MEDS: HYDROCORTISONE 10 MG TABLET PO SCH (22:58)
[2023-07-02] MEDS: GABAPENTIN 300 MG CAPSULE PO SCH (22:58)
[2023-07-03] MEDS: ACETAMINOPHEN 1000 MG/100 ML BAG IVPB PRN ×2 (02:00→17:57)
[2023-07-03] MEDS: GABAPENTIN 300 MG CAPSULE PO SCH ×3 (06:06→21:14)
[2023-07-03 08:40] LABS: BASO % 0.7 % (0-2.0); EOS % 3.1 % (0-4.5); HEMATOCRIT 32.1 % (32.4-45.2); LYMPH % 16.2 % (8-40); MCH 25.3 pg (25.7-33.7); MCHC 31.3 g/dl (32.0-36.0); MEAN CELL VOLUME 81.1 fl (80-96); MEAN PLT VOLUME 6.6 fl (7.5-11.1); MONO % 8.4 % (3.8-10.2); NEUT % 71.6 % (42.8-82.8); PLATELET COUNT 467 10^3/uL (134-434); RBC 3.96 M/mm3 (3.60-5.2); RDW 18.4 % (11.6-15.6); WHITE BLOOD COUNT 7.7 K/mm3 (4.0-10.0)
[2023-07-03 08:52] LABS: CHLORIDE 99 mmol/L (98-107); SODIUM 136 mmol/L (136-145)
[2023-07-03 09:03] LABS: SGPT/ALT 10 U/L (13-61)
[2023-07-03 09:06] LABS: BLOOD UREA NITROGEN 34.7 mg/dL (7-18); CO2 27 mmol/L (21-32); GLUCOSE,RANDOM 117 mg/dL (74-106)
[2023-07-03 09:07] LABS: MAGNESIUM 1.7 mg/dL (1.8-2.4)
[2023-07-03 09:09] LABS: CREATININE 3.4 mg/dL (0.55-1.3); PHOSPHOROUS 5.5 mg/dL (2.5-4.9)
[2023-07-03 09:10] LABS: ALK PHOS 82 U/L (45-117); SGOT/AST 17 U/L (15-37)
[2023-07-03 09:11] LABS: BILIRUBIN,TOTAL 0.5 mg/dL (0.2-1)
[2023-07-03 09:12] LABS: ALBUMIN 3.2 g/dl (3.4-5.0); ANION GAP 10 mmol/L (4-13); CALCIUM 8.5 mg/dL (8.5-10.1); POTASSIUM 2.9 mmol/L (3.5-5.1); TOT PROT 5.7 g/dl (6.4-8.2)
[2023-07-03] MEDS ORDERED: MAGNESIUM SULF 50% (8.12 MEQ/2 ML-1 GM VIAL) IVPB ONE (09:30)
[2023-07-03] MEDS: METOPROLOL TARTRATE 25 MG TABLET (FP) PO SCH ×2 (10:10→21:14)
[2023-07-03] MEDS: PANTOPRAZOLE SODIUM 40 MG VIAL IVPUSH SCH ×2 (10:10→21:15)
[2023-07-03] MEDS: HYDROCORTISONE 10 MG TABLET PO SCH ×4 (10:12→21:14)
[2023-07-03] MEDS ORDERED: KCL 10 MEQ IVPB 10 MEQ/100 ML INFUS.BAG IVPB SCH (10:15)
[2023-07-03] MEDS: D5-1/2NS+20 MEQ KCL - 20 MEQ/1,000 ML INFUS.BAG IV SCH ×2 (11:48→23:22)
[2023-07-03] MEDS: METOCLOPRAMIDE HCL INJECTION 10 MG/2 ML VIAL IVPUSH SCH ×3 (11:52→23:22)
[2023-07-03 20:06] LABS: EPI CELLS 14 /uL (0-25.1); HYALINE CASTS 1 /uL (0-3.1); URINE APPEARANCE CLOUDY; URINE BACTERIA 4105 /uL (0-1359); URINE BILIRUBIN NEGATIVE (NEGATIVE); URINE COLOR YELLOW; URINE GLUCOSE (UA) NEGATIVE (NEGATIVE); URINE KETONE TRACE (NEGATIVE); URINE LEUK ESTERASE TRACE (NEGATIVE); URINE NITRITE NEGATIVE (NEGATIVE); URINE PROTEIN 2+ (NEGATIVE); URINE RBC 3 /uL (0-23.9); URINE UROBILINOGEN 0.2 mg/dL (0.2-1.0); URINE WBC 20 /uL (0-25.8)
[2023-07-03] MEDS ORDERED: POTASSIUM CHLORIDE ORAL LIQUID 20 MEQ/15 ML PO ONE (20:21)
[2023-07-03] MEDS: KCL 10 MEQ IVPB 10 MEQ/100 ML INFUS.BAG IVPB SCH ×2 (21:15→22:26)
[2023-07-03 21:44] LABS: POTASSIUM 2.9 mmol/L (3.5-5.1)
[2023-07-04] MEDS: METOCLOPRAMIDE HCL INJECTION 10 MG/2 ML VIAL IVPUSH SCH ×2 (05:42→10:51)
[2023-07-04] MEDS: GABAPENTIN 300 MG CAPSULE PO SCH ×3 (05:42→21:52)
[2023-07-04 10:04] LABS: BASO % 0.5 % (0-2.0); EOS % 3.5 % (0-4.5); HEMATOCRIT 31.4 % (32.4-45.2); HEMOGLOBIN 9.8 GM/dL (10.7-15.3); LYMPH % 19.2 % (8-40); MCH 25.6 pg (25.7-33.7); MCHC 31.3 g/dl (32.0-36.0); MEAN CELL VOLUME 81.8 fl (80-96); MEAN PLT VOLUME 7.2 fl (7.5-11.1); NEUT % 68.8 % (42.8-82.8); PLATELET COUNT 417 10^3/uL (134-434); RBC 3.83 M/mm3 (3.60-5.2); RDW 17.9 % (11.6-15.6); WHITE BLOOD COUNT 5.3 K/mm3 (4.0-10.0)
[2023-07-04] MEDS ORDERED: D5-1/2NS+20 MEQ KCL - 20 MEQ/1,000 ML INFUS.BAG IV SCH (10:30)
[2023-07-04 10:36] LABS: POTASSIUM 3.5 mmol/L (3.5-5.1)
[2023-07-04] MEDS: METOPROLOL TARTRATE 25 MG TABLET (FP) PO SCH ×3 (10:51→21:58)
[2023-07-04] MEDS: PANTOPRAZOLE SODIUM 40 MG VIAL IVPUSH SCH (10:51)
[2023-07-04] MEDS: HYDROCORTISONE 10 MG TABLET PO SCH ×4 (10:51→21:52)
[2023-07-04] MEDS: D5-NS + 20 MEQ KCL - 20 MEQ/1,000 ML INFUS.BAG IV SCH (10:52)
[2023-07-04 11:18] LABS: CREATININE 2.1 mg/dL (0.55-1.3)
[2023-07-04 11:23] LABS: ALBUMIN 3.3 g/dl (3.4-5.0); BLOOD UREA NITROGEN 31.6 mg/dL (7-18); CALCIUM 7.8 mg/dL (8.5-10.1)
[2023-07-04 11:24] LABS: MAGNESIUM 1.9 mg/dL (1.8-2.4)
[2023-07-04 11:26] LABS: PHOSPHOROUS 3.5 mg/dL (2.5-4.9)
[2023-07-04 11:28] LABS: BILIRUBIN,TOTAL 0.4 mg/dL (0.2-1); TOT PROT 6.2 g/dl (6.4-8.2)
[2023-07-04] MEDS: ACETAMINOPHEN 325 MG TABLET (FP) PO PRN (13:54)
[2023-07-05] MEDS: D5-NS + 20 MEQ KCL - 20 MEQ/1,000 ML INFUS.BAG IV SCH (05:41)
[2023-07-05] MEDS: GABAPENTIN 300 MG CAPSULE PO SCH ×3 (05:41→21:40)
[2023-07-05] MEDS: ACETAMINOPHEN 325 MG TABLET (FP) PO PRN ×2 (06:13→11:54)
[2023-07-05 07:27] LABS: BASO % 0.4 % (0-2.0); EOS % 2.1 % (0-4.5); HEMATOCRIT 26.3 % (32.4-45.2); HEMOGLOBIN 8.3 GM/dL (10.7-15.3); MCH 25.6 pg (25.7-33.7); MCHC 31.6 g/dl (32.0-36.0); MEAN CELL VOLUME 81.1 fl (80-96); MEAN PLT VOLUME 7.1 fl (7.5-11.1); MONO % 8.8 % (3.8-10.2); NEUT % 70.7 % (42.8-82.8); PLATELET COUNT 335 10^3/uL (134-434); RBC 3.24 M/mm3 (3.60-5.2); RDW 18.2 % (11.6-15.6); WHITE BLOOD COUNT 4.6 K/mm3 (4.0-10.0)
[2023-07-05 07:36] LABS: POTASSIUM 3.7 mmol/L (3.5-5.1)
[2023-07-05 07:42] LABS: CALCIUM 8.1 mg/dL (8.5-10.1)
[2023-07-05 07:43] LABS: ALBUMIN 2.8 g/dl (3.4-5.0); BLOOD UREA NITROGEN 21.6 mg/dL (7-18); MAGNESIUM 1.5 mg/dL (1.8-2.4)
[2023-07-05 07:46] LABS: CREATININE 1.4 mg/dL (0.55-1.3)
[2023-07-05 07:47] LABS: BILIRUBIN,TOTAL 0.7 mg/dL (0.2-1); TOT PROT 5.2 g/dl (6.4-8.2)
[2023-07-05] MEDS ORDERED: MAGNESIUM SULF 50% (8.12 MEQ/2 ML-1 GM VIAL) IVPB ONE (10:10)
[2023-07-05] MEDS ORDERED: D5-NS + 20 MEQ KCL - 20 MEQ/1,000 ML INFUS.BAG IV SCH (10:11)
[2023-07-05] MEDS: HYDROCORTISONE 10 MG TABLET PO SCH ×4 (10:12→21:40)
[2023-07-05] MEDS: D5-1/2NS+20 MEQ KCL - 20 MEQ/1,000 ML INFUS.BAG IV SCH (10:13)
[2023-07-05] MEDS: METOPROLOL TARTRATE 25 MG TABLET (FP) PO SCH (10:13)
[2023-07-05] MEDS: PANTOPRAZOLE 40 MG TABLET PO SCH (10:13)
[2023-07-05] MEDS: oxyCODONE HCL 5 MG TABLET PO PRN ×2 (13:49→21:39)
[2023-07-06] MEDS: oxyCODONE HCL 5 MG TABLET PO PRN ×3 (05:41→21:17)
[2023-07-06] MEDS: GABAPENTIN 300 MG CAPSULE PO SCH ×3 (05:42→21:19)
[2023-07-06] MEDS ORDERED: METOCLOPRAMIDE HCL INJECTION 10 MG/2 ML VIAL IVPUSH PRN (09:02)
[2023-07-06 09:50] LABS: POTASSIUM 4.3 mmol/L (3.5-5.1)
[2023-07-06 09:52] LABS: ALBUMIN 3.3 g/dl (3.4-5.0); BASO % 0.2 % (0-2.0); BLOOD UREA NITROGEN 17.4 mg/dL (7-18); CALCIUM 8.8 mg/dL (8.5-10.1); EOS % 1.4 % (0-4.5); HEMATOCRIT 27.2 % (32.4-45.2); HEMOGLOBIN 9.1 GM/dL (10.7-15.3); LYMPH % 17.2 % (8-40); MCH 26.8 pg (25.7-33.7); MCHC 33.5 g/dl (32.0-36.0); MEAN CELL VOLUME 80.1 fl (80-96); MEAN PLT VOLUME 7.6 fl (7.5-11.1); MONO % 9.9 % (3.8-10.2); NEUT % 71.3 % (42.8-82.8); RDW 18.2 % (11.6-15.6)
[2023-07-06 09:56] LABS: CREATININE 0.9 mg/dL (0.55-1.3)
[2023-07-06 09:57] LABS: BILIRUBIN,TOTAL 0.3 mg/dL (0.2-1); TOT PROT 6.2 g/dl (6.4-8.2); WHITE BLOOD COUNT 8.1 K/mm3 (4.0-10.0)
[2023-07-06] MEDS: TAMSULOSIN HCL 0.4 MG CAP PO SCH (09:57)
[2023-07-06] MEDS: HYDROCORTISONE 10 MG TABLET PO SCH ×4 (09:58→21:19)
[2023-07-06] MEDS: PANTOPRAZOLE 40 MG TABLET PO SCH (09:58)
[2023-07-06 10:47] LABS: PLATELET COUNT 328 10^3/uL (134-434)
[2023-07-06] MEDS ORDERED: METOCLOPRAMIDE HCL 10 MG TABLET (FP) PO SCH (11:00)
[2023-07-06] MEDS: HEPARIN NA (PORCINE) 5,000 UNITS/ML 1ML VIAL SQ SCH ×2 (12:13→21:19)
[2023-07-06] MEDS ORDERED: METOCLOPRAMIDE HCL 10 MG TABLET (FP) PO PRN (12:35)
[2023-07-07] MEDS: oxyCODONE HCL 5 MG TABLET PO PRN ×3 (05:49→21:58)
[2023-07-07] MEDS: GABAPENTIN 300 MG CAPSULE PO SCH ×3 (05:49→21:15)
[2023-07-07] MEDS: ACETAMINOPHEN 325 MG TABLET (FP) PO PRN (08:32)
[2023-07-07] MEDS: TAMSULOSIN HCL 0.4 MG CAP PO SCH (08:34)
[2023-07-07] MEDS: HYDROCORTISONE 10 MG TABLET PO SCH ×4 (10:30→21:15)
[2023-07-07] MEDS: HEPARIN NA (PORCINE) 5,000 UNITS/ML 1ML VIAL SQ SCH ×2 (10:30→21:15)
[2023-07-07] MEDS: PANTOPRAZOLE 40 MG TABLET PO SCH (10:30)
[2023-07-07] MEDS ORDERED: ALBUTEROL SO4 HFA INHALER IH PRN (14:33)
[2023-07-07] MEDS ORDERED: METOCLOPRAMIDE HCL 10 MG TABLET (FP) PO PRN (15:47)
[2023-07-07] MEDS: MELATONIN 5 MG TABLETS PO PRN (21:15)
[2023-07-07] MEDS: BUDESONIDE/FORMETEROL FUMARATE 160/4.5 mcg INHALER IH SCH (22:31)
[2023-07-08] MEDS: GABAPENTIN 300 MG CAPSULE PO SCH ×3 (05:53→21:49)
[2023-07-08] MEDS: oxyCODONE HCL 5 MG TABLET PO PRN ×3 (06:03→22:27)
[2023-07-08 09:55] LABS: BASO % 1.2 % (0-2.0); EOS % 1.9 % (0-4.5); HEMATOCRIT 29.9 % (32.4-45.2); HEMOGLOBIN 9.4 GM/dL (10.7-15.3); LYMPH % 19.6 % (8-40); MCH 25.9 pg (25.7-33.7); MCHC 31.5 g/dl (32.0-36.0); MEAN CELL VOLUME 82.2 fl (80-96); MEAN PLT VOLUME 7.2 fl (7.5-11.1); MONO % 8.7 % (3.8-10.2); NEUT % 68.6 % (42.8-82.8); PLATELET COUNT 292 10^3/uL (134-434); RBC 3.64 M/mm3 (3.60-5.2); RDW 18.1 % (11.6-15.6); WHITE BLOOD COUNT 5.2 K/mm3 (4.0-10.0)
[2023-07-08] MEDS: TAMSULOSIN HCL 0.4 MG CAP PO SCH (10:00)
[2023-07-08] MEDS: PANTOPRAZOLE 40 MG TABLET PO SCH (10:00)
[2023-07-08] MEDS: HYDROCORTISONE 10 MG TABLET PO SCH ×4 (10:00→21:49)
[2023-07-08] MEDS: HEPARIN NA (PORCINE) 5,000 UNITS/ML 1ML VIAL SQ SCH ×2 (10:01→21:49)
[2023-07-08 10:12] LABS: POTASSIUM 4.4 mmol/L (3.5-5.1)
[2023-07-08 10:15] LABS: CALCIUM 9.1 mg/dL (8.5-10.1)
[2023-07-08 10:16] LABS: BLOOD UREA NITROGEN 19.2 mg/dL (7-18)
[2023-07-08] MEDS: BUDESONIDE/FORMETEROL FUMARATE 160/4.5 mcg INHALER IH SCH ×2 (11:02→21:48)
[2023-07-08 15:39] VITALS: RESP 18
[2023-07-08] MEDS: ACETAMINOPHEN 325 MG TABLET (FP) PO PRN (16:40)
[2023-07-08] MEDS: MELATONIN 5 MG TABLETS PO PRN (22:27)
[2023-07-09] MEDS: ACETAMINOPHEN 325 MG TABLET (FP) PO PRN (04:33)
[2023-07-09] MEDS: GABAPENTIN 300 MG CAPSULE PO SCH (05:15)
[2023-07-09 06:25] VITALS: BP 150/74; PULSE 69; TEMP 97.6
[2023-07-09] MEDS: oxyCODONE HCL 5 MG TABLET PO PRN (06:33)
[2023-07-09] MEDS: PANTOPRAZOLE 40 MG TABLET PO SCH (09:02)
[2023-07-09] MEDS: HYDROCORTISONE 10 MG TABLET PO SCH (09:02)
[2023-07-09] MEDS: TAMSULOSIN HCL 0.4 MG CAP PO SCH (09:02)
[2023-07-09] MEDS: HEPARIN NA (PORCINE) 5,000 UNITS/ML 1ML VIAL SQ SCH (09:02)
[2023-07-09] MEDS: BUDESONIDE/FORMETEROL FUMARATE 160/4.5 mcg INHALER IH SCH (09:03)
[2023-07-09 09:20] LABS: URINE APPEARANCE Clear; URINE BILIRUBIN Negative (NEGATIVE); URINE COLOR Yellow; URINE GLUCOSE (UA) Negative (NEGATIVE); URINE KETONE Negative (NEGATIVE); URINE LEUK ESTERASE Negative (NEGATIVE); URINE NITRITE Negative (NEGATIVE); URINE PROTEIN Negative (NEGATIVE); URINE UROBILINOGEN 0.2 mg/dL (0.2-1.0)
== END 2023-07-09 12:47 | disposition home health service (06) | DRG 392 ==
LOC: JER 09:38 → JERBED 15:39 → J4S 20:49 → J8W 07-07 15:43
PROVIDERS: ADMIT Internal Medicine; ATTEND Family Medicine
DX: K31.84 Gastroparesis (principal); E27.40 Unspecified adrenocortical insufficiency; N17.9 Acute kidney failure, unspecified; J44.9 Chronic obstructive pulmonary disease, unspecified; I10 Essential (primary) hypertension; R29.6 Repeated falls; K59.00 Constipation, unspecified; K44.9 Diaphragmatic hernia without obstruction or gangrene; E87.6 Hypokalemia; D64.9 Anemia, unspecified; R50.9 Fever, unspecified; R00.0 Tachycardia, unspecified; K21.9 Gastro-esophageal reflux disease without esophagitis; G89.29 Other chronic pain; K64.8 Other hemorrhoids; E86.0 Dehydration; Z96.659 Presence of unspecified artificial knee joint; Z87.11 Personal history of peptic ulcer disease
CPT/HCPCS: 0241U-QW; 36415; 71045-TC-FY; 71250-TC; 74176-TC; 76775-TC; 80048; 80053; 81003; 82272; 82436; 82570; 82728; 83540; 83550; 83605; 83735; 84100; 84132; 84133; 84300; 84484; 85025; 85045; 85610; 85730; 86850; 86900; 86901; 87040; 87086; 93005; 93010; 97116-GP; 97162-GP; 99285-25; J1644

== ENCOUNTER 2024-09-06 14:11 | Inpatient (IN) | payer OTHER ==
[2024-09-06 14:38] VITALS: BMI 35.4
[2024-09-06] MEDS ORDERED: ONDANSETRON 4 MG/2 ML VIAL ONE (15:27)
[2024-09-06] MEDS ORDERED: PANTOPRAZOLE SODIUM 40 MG VIAL ONE ×2 (15:28→16:46)
[2024-09-06 16:41] LABS: BASO % 0.2 % (0-2.0); EOS % 0.1 % (0-4.5); HEMATOCRIT 48.4 % (32.4-45.2); HEMOGLOBIN 16.2 GM/dL (10.7-15.3); LYMPH % 5.6 % (8-40); MCH 31.5 pg (25.7-33.7); MCHC 33.5 g/dl (32.0-36.0); MEAN CELL VOLUME 94.3 fl (80-96); MONO % 5.2 % (3.8-10.2); NEUT % 88.9 % (42.8-82.8); PLATELET COUNT 228 10^3/uL (134-434); RBC 5.14 M/mm3 (3.60-5.2); WHITE BLOOD COUNT 14.2 K/mm3 (4.0-10.0)
[2024-09-06] MEDS: ONDANSETRON 4 MG/2 ML VIAL IVPB ONE (16:45)
[2024-09-06] MEDS: PANTOPRAZOLE SODIUM 40 MG VIAL IVPUSH ONE ×2 (16:45→16:55)
[2024-09-06] MEDS: SODIUM CHLORIDE 0.9% 500 ML INFUS.BAG IV ONE (16:55)
[2024-09-06 17:02] LABS: ALBUMIN 3.7 g/dl (3.4-5.0); CALCIUM 9.8 mg/dL (8.5-10.1)
[2024-09-06 17:04] LABS: BLOOD UREA NITROGEN 86.8 mg/dL (7-18); MAGNESIUM 2.2 mg/dL (1.8-2.4)
[2024-09-06 17:07] LABS: CREATININE 5.8 mg/dL (0.55-1.3)
[2024-09-06 17:08] LABS: BILIRUBIN,TOTAL 0.8 mg/dL (0.2-1); TOT PROT 7.9 g/dl (6.4-8.2)
[2024-09-06 17:12] LABS: LACTIC ACID 4.3 mmol/L (0.4-2.0)
[2024-09-06] MEDS: SODIUM CHLORIDE 1,000 ML IV STA ×2 (17:38→18:06)
[2024-09-06 17:59] LABS: HIV INTERPRETATION NEGATIVE (NEGATIVE)
[2024-09-06] MEDS ORDERED: ACETAMINOPHEN INJECTION 100 ML ONE (19:42)
[2024-09-06 19:57] LABS: EPI CELLS 11 /uL (0-25.1); HYALINE CASTS 6 /uL (0-3.1); URINE APPEARANCE CLOUDY; URINE BACTERIA >9,000 /uL (0-1359); URINE BILIRUBIN NEGATIVE (NEGATIVE); URINE COLOR DK YELLOW; URINE GLUCOSE (UA) NEGATIVE (NEGATIVE); URINE KETONE TRACE (NEGATIVE); URINE LEUK ESTERASE 2+ (NEGATIVE); URINE NITRITE NEGATIVE (NEGATIVE); URINE PROTEIN 3+ (NEGATIVE); URINE UROBILINOGEN 0.2 mg/dL (0.2-1.0); URINE WBC 942 /uL (0-25.8)
[2024-09-06] MEDS: ACETAMINOPHEN 1000 MG/100 ML BAG IVPB ONE (20:32)
[2024-09-06] MEDS ORDERED: CEFTRIAXONE 1 G/50 ML PREMIX 50 ML IVPB ONE (20:34)
[2024-09-06 20:48] LABS: INR 1.08 (0.83-1.09); PROTHROMBIN TIME (PATIENT) 12.4 SEC (9.7-13.0)
[2024-09-06 20:58] LABS: POTASSIUM 3.9 mmol/L (3.5-5.1)
[2024-09-06 21:01] LABS: BLOOD UREA NITROGEN 85.3 mg/dL (7-18)
[2024-09-06 21:04] LABS: CREATININE 5.3 mg/dL (0.55-1.3)
[2024-09-06 21:05] LABS: ALBUMIN 2.8 g/dl (3.4-5.0); BILIRUBIN,TOTAL 0.5 mg/dL (0.2-1); CALCIUM 7.9 mg/dL (8.5-10.1)
[2024-09-06 21:07] LABS: LACTIC ACID 2.5 mmol/L (0.4-2.0); TOT PROT 5.9 g/dl (6.4-8.2)
[2024-09-06 22:26] LABS: URINE RBC 26.2 /uL (0-23.9); YEAST FEW (NEGATIVE)
[2024-09-07] MEDS ORDERED: LIDOCAINE 5% TOPICAL PATCH ONE (00:05)
[2024-09-07] MEDS: LIDOCAINE 5% TOPICAL PATCH TP ONE (00:10)
[2024-09-07] MEDS: LACTATED RINGERS SOLUTION 1000 ML INFUS.BAG IV ONE (00:14)
[2024-09-07] MEDS: SODIUM CHLORIDE 1,000 ML IV SCH (03:08)
[2024-09-07] MEDS: REMDESIVIR 200 MG in SODIUM CHLORIDE 250 ML IVPB ONE (03:11)
[2024-09-07] MEDS: ACETAMINOPHEN 1000 MG/100 ML BAG IVPB PRN (04:38)
[2024-09-07] MEDS: DEXTROSE 50%-WATER 25 GM/50 ML DISP.SYRIN IVPUSH ONE (06:53)
[2024-09-07 07:07] LABS: ARTERIAL BLOOD GAS BASE EXCESS -11.6 mmol/L (-2-2); ARTERIAL BLOOD GAS PO2 90.2 mmHg (80-100); ARTERIAL BLOOD GAS pH 7.276 (7.350-7.450)
[2024-09-07 07:08] LABS: ALLENS TEST POSITIVE
[2024-09-07 08:23] LABS: BASO % 0.1 % (0-2.0); EOS % 0.1 % (0-4.5); HEMATOCRIT 34.5 % (32.4-45.2); HEMOGLOBIN 12.1 GM/dL (10.7-15.3); LYMPH % 5.7 % (8-40); MCH 32.6 pg (25.7-33.7); MCHC 34.9 g/dl (32.0-36.0); MEAN CELL VOLUME 93.5 fl (80-96); MEAN PLT VOLUME 7.3 fl (7.5-11.1); MONO % 4.3 % (3.8-10.2); NEUT % 89.8 % (42.8-82.8); PLATELET COUNT 148 10^3/uL (134-434); RDW 14.8 % (11.6-15.6)
[2024-09-07 08:45] LABS: POTASSIUM 3.4 mmol/L (3.5-5.1)
[2024-09-07 09:06] LABS: ALBUMIN 2.4 g/dl (3.4-5.0); BLOOD UREA NITROGEN 87.5 mg/dL (7-18); CALCIUM 7.9 mg/dL (8.5-10.1)
[2024-09-07 09:09] LABS: CREATININE 4.4 mg/dL (0.55-1.3)
[2024-09-07 09:10] LABS: BILIRUBIN,TOTAL 0.3 mg/dL (0.2-1)
[2024-09-07 09:11] LABS: TOT PROT 5.2 g/dl (6.4-8.2)
[2024-09-07] MEDS ORDERED: ALBUTEROL SO4 2.5/IPRATROPIUM 0.5 INH SOL 3 ML VIAL.NEB. NEB PRN (09:35)
[2024-09-07] MEDS ORDERED: PANTOPRAZOLE SODIUM 40 MG VIAL IVPUSH SCH (10:00)
[2024-09-07] MEDS ORDERED: ENOXAPARIN NA (PORCINE) 30 MG/0.3 ML DISP.SYRIN SQ SCH (10:00)
[2024-09-07] MEDS: PANTOPRAZOLE SODIUM 40 MG VIAL IVPUSH SCH (10:37)
[2024-09-07] MEDS: SODIUM CHLORIDE 500 ML IV STA (10:38)
[2024-09-07] MEDS: POTASSIUM CHLORIDE ORAL LIQUID 20 MEQ/15 ML PO ONE (10:40)
[2024-09-07] MEDS: ESCITALOPRAM OXALATE 10 MG TABLET PO SCH (10:40)
[2024-09-07] MEDS: DEXAMETHASONE SOD PHOSPHATE 10 MG/1 ML VIAL IVPUSH SCH (10:40)
[2024-09-07] MEDS: CEFTRIAXONE 1 G/50 ML PREMIX 50 ML IVPB SCH (10:41)
[2024-09-07] MEDS: SODIUM CHLORIDE 0.9% 1000 ML INFUS.BAG IV ONE (10:42)
[2024-09-07] MEDS ORDERED: LACTATED RINGERS SOLUTION 1,000 ML/1,000 ML INFUS.BAG IV SCH (11:15)
[2024-09-07 12:07] LABS: BASO % 0.2 % (0-2.0); EOS % 0.2 % (0-4.5); HEMATOCRIT 37.4 % (32.4-45.2); HEMOGLOBIN 12.7 GM/dL (10.7-15.3); LYMPH % 5.6 % (8-40); MCH 31.8 pg (25.7-33.7); MCHC 33.8 g/dl (32.0-36.0); MEAN CELL VOLUME 94.1 fl (80-96); MEAN PLT VOLUME 7.8 fl (7.5-11.1); MONO % 4.7 % (3.8-10.2); NEUT % 89.3 % (42.8-82.8); PLATELET COUNT 163 10^3/uL (134-434); RBC 3.98 M/mm3 (3.60-5.2); RDW 14.9 % (11.6-15.6)
[2024-09-07] MEDS: LIDOCAINE PATCH REMOVAL MC ONE (13:35)
[2024-09-07] MEDS: GABAPENTIN 300 MG CAPSULE PO SCH (13:36)
[2024-09-07] MEDS: DEXTROSE 5%-0.45% SALINE 1,000 ML IV SCH (17:14)
[2024-09-07] MEDS: guaiFENesin 200 MG/10 ML 10 ML UNIT-DOSE CUPS PO PRN (22:02)
[2024-09-08] MEDS: ACETAMINOPHEN 325 MG TABLET (FP) PO PRN (06:42)
[2024-09-08 08:44] LABS: HEMATOCRIT 33.8 % (32.4-45.2); HEMOGLOBIN 11.8 GM/dL (10.7-15.3); MCH 32.7 pg (25.7-33.7); MCHC 34.9 g/dl (32.0-36.0); MEAN CELL VOLUME 93.7 fl (80-96); MEAN PLT VOLUME 7.7 fl (7.5-11.1); PLATELET COUNT 153 10^3/uL (134-434); RBC 3.61 M/mm3 (3.60-5.2); RDW 14.8 % (11.6-15.6); WHITE BLOOD COUNT 10.3 K/mm3 (4.0-10.0)
[2024-09-08 09:03] LABS: POTASSIUM 3.8 mmol/L (3.5-5.1)
[2024-09-08 09:04] LABS: CALCIUM 8.9 mg/dL (8.5-10.1)
[2024-09-08 09:05] LABS: ALBUMIN 2.6 g/dl (3.4-5.0); BLOOD UREA NITROGEN 81.8 mg/dL (7-18)
[2024-09-08 09:07] LABS: CREATININE 2.5 mg/dL (0.55-1.3)
[2024-09-08 09:09] LABS: BILIRUBIN,TOTAL 0.2 mg/dL (0.2-1); TOT PROT 5.9 g/dl (6.4-8.2)
[2024-09-08 09:42] LABS: ANISOCYTOSIS 0; MACROCYTOSIS 0
[2024-09-08] MEDS: REMDESIVIR 100 MG in SODIUM CHLORIDE 250 ML IVPB SCH (12:28)
[2024-09-09 08:35] LABS: BASO % 0.1 % (0-2.0); HEMATOCRIT 31.6 % (32.4-45.2); LYMPH % 3.7 % (8-40); MCH 32.2 pg (25.7-33.7); MCHC 34.8 g/dl (32.0-36.0); MEAN CELL VOLUME 92.4 fl (80-96); MEAN PLT VOLUME 7.4 fl (7.5-11.1); MONO % 5.3 % (3.8-10.2); NEUT % 90.9 % (42.8-82.8); PLATELET COUNT 167 10^3/uL (134-434); RBC 3.42 M/mm3 (3.60-5.2); RDW 14.8 % (11.6-15.6)
[2024-09-09 09:23] LABS: POTASSIUM 3.6 mmol/L (3.5-5.1)
[2024-09-09 09:27] LABS: CALCIUM 8.8 mg/dL (8.5-10.1)
[2024-09-09 09:29] LABS: ALBUMIN 2.6 g/dl (3.4-5.0); BLOOD UREA NITROGEN 62.6 mg/dL (7-18)
[2024-09-09 09:31] LABS: CREATININE 1.4 mg/dL (0.55-1.3)
[2024-09-09 09:32] LABS: BILIRUBIN,TOTAL 0.3 mg/dL (0.2-1); TOT PROT 5.6 g/dl (6.4-8.2)
[2024-09-09 17:05] LABS: N-TERMINAL BNP 7126.5 pg/ml (5-450)
[2024-09-10] MEDS: MELATONIN 5 MG TABLETS PO PRN (01:21)
[2024-09-10 07:07] LABS: EOS % 0.1 % (0-4.5); HEMOGLOBIN 10.7 GM/dL (10.7-15.3); LYMPH % 6.1 % (8-40); MCH 31.8 pg (25.7-33.7); MCHC 34.5 g/dl (32.0-36.0); MEAN CELL VOLUME 92.1 fl (80-96); MEAN PLT VOLUME 7.3 fl (7.5-11.1); MONO % 8.7 % (3.8-10.2); NEUT % 85.1 % (42.8-82.8); PLATELET COUNT 170 10^3/uL (134-434); RBC 3.37 M/mm3 (3.60-5.2); RDW 14.3 % (11.6-15.6)
[2024-09-10 07:26] LABS: POTASSIUM 3.7 mmol/L (3.5-5.1)
[2024-09-10 07:30] LABS: CALCIUM 8.6 mg/dL (8.5-10.1)
[2024-09-10 07:31] LABS: ALBUMIN 2.6 g/dl (3.4-5.0); BLOOD UREA NITROGEN 45.9 mg/dL (7-18)
[2024-09-10 07:34] LABS: CREATININE 1.1 mg/dL (0.55-1.3)
[2024-09-10 07:35] LABS: BILIRUBIN,TOTAL 0.3 mg/dL (0.2-1); TOT PROT 5.2 g/dl (6.4-8.2)
[2024-09-10] MEDS: DEXTROSE 5%-0.45% SALINE 1,000 ML IV SCH (21:56)
[2024-09-10] MEDS: ZOLPIDEM TARTRATE 5 MG TABLET PO ONE (23:10)
[2024-09-11 08:55] LABS: EOS % 0.1 % (0-4.5); HEMATOCRIT 33.8 % (32.4-45.2); HEMOGLOBIN 11.5 GM/dL (10.7-15.3); MCHC 34.1 g/dl (32.0-36.0); MEAN CELL VOLUME 93.9 fl (80-96); MEAN PLT VOLUME 7.5 fl (7.5-11.1); MONO % 13.1 % (3.8-10.2); NEUT % 74.8 % (42.8-82.8); PLATELET COUNT 188 10^3/uL (134-434); RBC 3.61 M/mm3 (3.60-5.2); RDW 14.5 % (11.6-15.6); WHITE BLOOD COUNT 5.3 K/mm3 (4.0-10.0)
[2024-09-11 09:16] LABS: POTASSIUM 3.8 mmol/L (3.5-5.1)
[2024-09-11 09:46] LABS: ALBUMIN 2.6 g/dl (3.4-5.0)
[2024-09-11 09:47] LABS: CALCIUM 8.6 mg/dL (8.5-10.1)
[2024-09-11 09:50] LABS: BILIRUBIN,TOTAL 0.6 mg/dL (0.2-1); TOT PROT 5.3 g/dl (6.4-8.2)
[2024-09-11] MEDS: BANATROL PLUS POWDER PACKET PO SCH (13:45)
[2024-09-12 08:26] LABS: HEMATOCRIT 33.2 % (32.4-45.2); HEMOGLOBIN 11.3 GM/dL (10.7-15.3); RBC 3.54 M/mm3 (3.60-5.2); WHITE BLOOD COUNT 5.9 K/mm3 (4.0-10.0)
[2024-09-12 08:27] LABS: MCH 31.9 pg (25.7-33.7); MEAN CELL VOLUME 93.8 fl (80-96); MEAN PLT VOLUME 7.1 fl (7.5-11.1); PLATELET COUNT 205 10^3/uL (134-434); RDW 14.3 % (11.6-15.6)
[2024-09-12 08:42] LABS: POTASSIUM 3.5 mmol/L (3.5-5.1)
[2024-09-12 08:45] LABS: CALCIUM 8.4 mg/dL (8.5-10.1)
[2024-09-12 08:46] LABS: ALBUMIN 2.2 g/dl (3.4-5.0); BLOOD UREA NITROGEN 30.9 mg/dL (7-18)
[2024-09-12 08:49] LABS: CREATININE 0.9 mg/dL (0.55-1.3)
[2024-09-12 08:50] LABS: BILIRUBIN,TOTAL 0.3 mg/dL (0.2-1)
[2024-09-12 08:51] LABS: TOT PROT 4.7 g/dl (6.4-8.2)
[2024-09-12 09:12] LABS: ANISOCYTOSIS 0; MACROCYTOSIS 0
[2024-09-12 11:06] VITALS: BP 103/60; PULSE 72; RESP 20; TEMP 97.9
== END 2024-09-12 14:42 | disposition home health service (06) | DRG 871 ==
LOC: JER 14:11 → JERBED 20:28 → J4S 09-07 02:07
PROVIDERS: ADMIT Internal Medicine; ATTEND Internal Medicine
PROC: XW033E5 Introduction of Remdesivir Anti-infective into Peripheral Vein, Percutaneous Approach, New Technology Group 5 (ICD-10-PCS; principal; 2024-09-07)
DX: A41.9 Sepsis, unspecified organism (principal); U07.1 COVID-19; E87.1 Hypo-osmolality and hyponatremia; N17.9 Acute kidney failure, unspecified; N39.0 Urinary tract infection, site not specified; E87.20 Acidosis, unspecified; I24.89 Other forms of acute ischemic heart disease; I10 Essential (primary) hypertension; J44.9 Chronic obstructive pulmonary disease, unspecified; K21.9 Gastro-esophageal reflux disease without esophagitis; E86.0 Dehydration; D64.9 Anemia, unspecified; K74.60 Unspecified cirrhosis of liver
CPT/HCPCS: 0241U-QW; 36415; 36600; 71045-TC-FY; 71250-TC; 74176-TC; 76604; 76775-TC; 80053; 80061; 81003; 82272; 82803; 82962; 83036; 83605; 83735; 83880; 84439; 84443; 84484; 85025; 85610; 86140; 86803; 87045; 87046; 87086; 87186; 87205; 87324; 87389; 87449; 87522; 93005; 93010; 93306-TC; 93308; 97162-GP; 99291; J0131; J0248; J1100

== ENCOUNTER 2024-11-22 12:28 | Inpatient (IN) | payer OTHER ==
[2024-11-22] MEDS ORDERED: PANTOPRAZOLE SODIUM 40 MG VIAL ONE (14:12)
[2024-11-22] MEDS ORDERED: ACETAMINOPHEN INJECTION 100 ML ONE ×2 (14:12→21:29)
[2024-11-22] MEDS ORDERED: ONDANSETRON 4 MG/2 ML VIAL ONE (14:12)
[2024-11-22] MEDS ORDERED: FAMOTIDINE 20 MG/50 ML IVPB 20 MG/50 ML MG IVPB ONE (14:29)
[2024-11-22 14:35] LABS: ABSOLUTE IMMATURE GRANULOCYTES 0.07 x10^3/uL (0.0-0.031); BASOPHILS # 0.06 x10^3/uL (0.01-0.08); EOSINOPHIL % 0.4 % (0.7-5.8); EOSINOPHILS # 0.04 x10^3/uL (0.04-0.36); HEMATOCRIT 43.4 % (34.1-44.9); HEMOGLOBIN 14.7 g/dL (11.2-15.7); MCHC 33.9 g/dl (32.2-35.5); MEAN CELL VOLUME 90.4 fl (79.4-94.8); MEAN PLT VOLUME 8.6 fl (9.4-12.3); MONOCYTE % 10.6 % (4.7-12.5); PLATELET COUNT 390 x10^3/uL (182-369)
[2024-11-22 14:42] LABS: INR 1.02 (0.83-1.09); PROTHROMBIN TIME (PATIENT) 11.1 SEC (9.7-13.0)
[2024-11-22 14:45] LABS: ACTIVATED PTT 26.6 SECONDS (25.2-36.5)
[2024-11-22 15:02] LABS: LACTIC ACID 2.3 mmol/L (0.4-2.0)
[2024-11-22 15:03] LABS: POTASSIUM 3.1 mmol/L (3.5-5.1)
[2024-11-22 15:05] LABS: CALCIUM 10.4 mg/dL (8.5-10.1)
[2024-11-22 15:06] LABS: ALBUMIN 4.3 g/dl (3.4-5.0); BLOOD UREA NITROGEN 20.7 mg/dL (7-18); MAGNESIUM 1.7 mg/dL (1.8-2.4)
[2024-11-22 15:09] LABS: CREATININE 1.2 mg/dL (0.55-1.3); PHOSPHOROUS 3.1 mg/dL (2.5-4.9)
[2024-11-22 15:10] LABS: BILIRUBIN,TOTAL 0.5 mg/dL (0.2-1); TOT PROT 7.6 g/dl (6.4-8.2)
[2024-11-22] MEDS: FAMOTIDINE 20 MG/50 ML IVPB 20 MG/50 ML MG IVPB ONE (15:31)
[2024-11-22] MEDS: ONDANSETRON 4 MG/2 ML VIAL IVPUSH ONE (15:31)
[2024-11-22] MEDS: SODIUM CHLORIDE 1,000 ML IV STA (15:31)
[2024-11-22] MEDS: ACETAMINOPHEN 1000 MG/100 ML BAG IVPB ONE (15:32)
[2024-11-22] MEDS ORDERED: KCL 10 MEQ IVPB 10 MEQ/100 ML INFUS.BAG IVPB ONE ×2 (15:40→19:26)
[2024-11-22] MEDS ORDERED: MORPHINE SULFATE 2 MG/ML SYRINGE ONE (16:48)
[2024-11-22] MEDS: PANTOPRAZOLE SODIUM 40 MG VIAL IVPUSH ONE (17:18)
[2024-11-22] MEDS: KCL 10 MEQ IVPB 10 MEQ/100 ML INFUS.BAG IVPB SCH (17:40)
[2024-11-22] MEDS: morphine CARPU-JECT 2 MG/1 ML DISP.SYRIN IVPUSH ONE (17:40)
[2024-11-22 17:47] LABS: EPI CELLS 2 /uL (0-25.1); HYALINE CASTS 1 /uL (0-3.1); URINE APPEARANCE CLEAR; URINE BACTERIA 2236 /uL (0-1359); URINE BILIRUBIN NEGATIVE (NEGATIVE); URINE COLOR YELLOW; URINE GLUCOSE (UA) NEGATIVE (NEGATIVE); URINE KETONE NEGATIVE (NEGATIVE); URINE LEUK ESTERASE NEGATIVE (NEGATIVE); URINE NITRITE NEGATIVE (NEGATIVE); URINE PROTEIN 3+ (NEGATIVE); URINE RBC 8 /uL (0-23.9); URINE UROBILINOGEN 0.2 mg/dL (0.2-1.0)
[2024-11-22] MEDS: MAGNESIUM SULF 50% (8.12 MEQ/2 ML-1 GM VIAL) IVPB ONE (19:08)
[2024-11-22] MEDS ORDERED: DOCUSATE SODIUM 100 MG CAPSULE (FP) PO PRN (19:36)
[2024-11-22] MEDS: INSULIN ASPART SLIDING SCALE (NOVOLOG) 1 VIAL SQ SCH (20:32)
[2024-11-22] MEDS: ACETAMINOPHEN 1000 MG/100 ML BAG IVPB PRN (21:20)
[2024-11-22 23:00] LABS: URINE WBC 124.8 /uL (0-25.8)
[2024-11-22] MEDS: POTASSIUM CHLORIDE ORAL LIQUID 20 MEQ/15 ML PO ONE (23:20)
[2024-11-22 23:49] VITALS: BMI 32.8
[2024-11-23] MEDS: D5-NS + 20 MEQ KCL - 20 MEQ/1,000 ML INFUS.BAG IV SCH (00:42)
[2024-11-23] MEDS ORDERED: ALBUTEROL SO4 HFA INHALER IH PRN (01:48)
[2024-11-23] MEDS: oxyCODONE HCL 5 MG TABLET PO PRN (02:11)
[2024-11-23] MEDS: ZOLPIDEM TARTRATE 5 MG TABLET PO PRN (04:22)
[2024-11-23] MEDS: GABAPENTIN 100 MG CAPSULE PO SCH (05:58)
[2024-11-23 08:23] LABS: HEMATOCRIT 38.6 % (34.1-44.9); HEMOGLOBIN 12.9 g/dL (11.2-15.7); MCHC 33.4 g/dl (32.2-35.5); MEAN CELL VOLUME 91.5 fl (79.4-94.8); MEAN PLT VOLUME 8.6 fl (9.4-12.3); PLATELET COUNT 317 x10^3/uL (182-369)
[2024-11-23 08:31] LABS: POTASSIUM 3.5 mmol/L (3.5-5.1)
[2024-11-23 08:37] LABS: CALCIUM 9.2 mg/dL (8.5-10.1); MAGNESIUM 1.7 mg/dL (1.8-2.4)
[2024-11-23 08:38] LABS: ALBUMIN 3.7 g/dl (3.4-5.0)
[2024-11-23 08:40] LABS: CREATININE 1.2 mg/dL (0.55-1.3); PHOSPHOROUS 4.3 mg/dL (2.5-4.9)
[2024-11-23 08:41] LABS: BILIRUBIN,TOTAL 0.5 mg/dL (0.2-1)
[2024-11-23 08:42] LABS: TOT PROT 6.5 g/dl (6.4-8.2)
[2024-11-23] MEDS: HYDROCORTISONE 10 MG TABLET PO SCH (09:16)
[2024-11-23] MEDS: PANTOPRAZOLE 40 MG TABLET PO SCH (09:16)
[2024-11-23] MEDS: METOPROLOL TARTRATE 25 MG TABLET (FP) PO SCH (09:17)
[2024-11-23] MEDS ORDERED: FLUTICASONE PROP 0.05% 16 GM NASAL SPRAY NS PRN (10:00)
[2024-11-23] MEDS: ESCITALOPRAM OXALATE 10 MG TABLET PO SCH (11:19)
[2024-11-23] MEDS: ALPRAZolam 0.25 MG TABLET PO ONE (14:22)
[2024-11-23] MEDS: LIDOCAINE 5% TOPICAL PATCH TP SCH (15:52)
[2024-11-23] MEDS ORDERED: ONDANSETRON 4 MG/2 ML VIAL IVPUSH PRN (15:53)
[2024-11-23] MEDS: LIDOCAINE PATCH REMOVAL MC SCH (21:24)
[2024-11-24 07:21] LABS: ABSOLUTE IMMATURE GRANULOCYTES 0.04 x10^3/uL (0.0-0.031); BASOPHILS # 0.03 x10^3/uL (0.01-0.08); EOSINOPHIL % 6.3 % (0.7-5.8); EOSINOPHILS # 0.33 x10^3/uL (0.04-0.36); HEMATOCRIT 33.4 % (34.1-44.9); HEMOGLOBIN 10.8 g/dL (11.2-15.7); MCHC 32.3 g/dl (32.2-35.5); MEAN CELL VOLUME 93.8 fl (79.4-94.8); MEAN PLT VOLUME 8.4 fl (9.4-12.3); MONOCYTE # 0.47 x10^3/uL (0.24-0.86); PLATELET COUNT 225 x10^3/uL (182-369); RDW 14.3 % (12.4-16.6)
[2024-11-24 07:43] LABS: POTASSIUM 3.8 mmol/L (3.5-5.1)
[2024-11-24 07:58] LABS: CALCIUM 8.3 mg/dL (8.5-10.1)
[2024-11-24 07:59] LABS: BLOOD UREA NITROGEN 24.8 mg/dL (7-18)
[2024-11-24 08:02] LABS: CREATININE 1.2 mg/dL (0.55-1.3)
[2024-11-24 08:03] LABS: BILIRUBIN,TOTAL 0.4 mg/dL (0.2-1)
[2024-11-24 08:04] LABS: TOT PROT 5.4 g/dl (6.4-8.2)
[2024-11-24] MEDS: oxyCODONE HCL 5 MG TABLET PO ONE (10:50)
[2024-11-24] MEDS ORDERED: SENNOSIDES 8.6MG TABLET (FP) PO PRN (15:07)
[2024-11-24] MEDS: POLYETHYLENE GLYCOL (HEALTHYLAX) 3350 17 GM PACKET PO SCH (15:22)
[2024-11-24] MEDS: morphine SULFATE 4 MG/ML VIAL IVPUSH PRN (15:23)
[2024-11-24] MEDS: DOCUSATE SODIUM 100 MG CAPSULE (FP) PO SCH (21:19)
[2024-11-25] MEDS: morphine SULFATE 4 MG/ML VIAL IVPUSH ONE (02:05)
[2024-11-25] MEDS: GABAPENTIN 100 MG CAPSULE PO SCH (06:41)
[2024-11-25 10:55] LABS: ABSOLUTE IMMATURE GRANULOCYTES 0.02 x10^3/uL (0.0-0.031); BASOPHILS # 0.02 x10^3/uL (0.01-0.08); EOSINOPHIL % 4.6 % (0.7-5.8); EOSINOPHILS # 0.19 x10^3/uL (0.04-0.36); HEMATOCRIT 38.3 % (34.1-44.9); HEMOGLOBIN 11.8 g/dL (11.2-15.7); MCHC 30.8 g/dl (32.2-35.5); MEAN CELL VOLUME 97.2 fl (79.4-94.8); MEAN PLT VOLUME 8.8 fl (9.4-12.3); MONOCYTE # 0.25 x10^3/uL (0.24-0.86); PLATELET COUNT 277 x10^3/uL (182-369); RDW 13.8 % (12.4-16.6)
[2024-11-25 11:21] LABS: POTASSIUM 4.3 mmol/L (3.5-5.1)
[2024-11-25 11:23] LABS: AMYLASE 40 U/L (25-115)
[2024-11-25 11:25] LABS: ALBUMIN 3.5 g/dl (3.4-5.0); CALCIUM 8.5 mg/dL (8.5-10.1)
[2024-11-25 11:26] LABS: BLOOD UREA NITROGEN 19.7 mg/dL (7-18)
[2024-11-25 11:29] LABS: CREATININE 1.1 mg/dL (0.55-1.3)
[2024-11-25 11:30] LABS: BILIRUBIN,TOTAL 0.7 mg/dL (0.2-1); TOT PROT 6.4 g/dl (6.4-8.2)
[2024-11-25] MEDS: ALPRAZolam 1 MG TABLET PO ONE (16:33)
[2024-11-26 07:43] LABS: ABSOLUTE IMMATURE GRANULOCYTES 0.01 x10^3/uL (0.0-0.031); BASOPHILS # 0.02 x10^3/uL (0.01-0.08); EOSINOPHIL % 4.7 % (0.7-5.8); HEMATOCRIT 31.5 % (34.1-44.9); HEMOGLOBIN 9.7 g/dL (11.2-15.7); MCHC 30.8 g/dl (32.2-35.5); MEAN CELL VOLUME 96.9 fl (79.4-94.8); MEAN PLT VOLUME 8.9 fl (9.4-12.3); MONOCYTE # 0.42 x10^3/uL (0.24-0.86); PLATELET COUNT 212 x10^3/uL (182-369); RDW 13.7 % (12.4-16.6)
[2024-11-26 08:04] LABS: POTASSIUM 4.5 mmol/L (3.5-5.1)
[2024-11-26 08:14] LABS: CALCIUM 8.5 mg/dL (8.5-10.1)
[2024-11-26 08:15] LABS: ALBUMIN 2.9 g/dl (3.4-5.0)
[2024-11-26 08:20] LABS: BILIRUBIN,TOTAL 0.6 mg/dL (0.2-1); TOT PROT 5.1 g/dl (6.4-8.2)
[2024-11-26] MEDS: traMADol HCL 50 MG TABLET PO ONE (22:00)
[2024-11-27] MEDS: traMADol HCL 50 MG TABLET PO ONE (06:46)
[2024-11-27] MEDS: KETOROLAC TROMETHAMINE 10 MG TABLET PO PRN (17:30)
[2024-11-27] MEDS: ZOLPIDEM TARTRATE 5 MG TABLET PO PRN (22:35)
[2024-11-28] MEDS: LIDOCAINE 4% PATCH TP SCH (12:21)
[2024-11-28] MEDS: ACETAMINOPHEN 325 MG TABLET (FP) PO PRN (13:50)
[2024-11-28] MEDS: traMADol HCL 50 MG TABLET PO PRN (16:52)
[2024-11-29 09:45] LABS: ABSOLUTE IMMATURE GRANULOCYTES 0.02 x10^3/uL (0.0-0.031); BASOPHILS # 0.03 x10^3/uL (0.01-0.08); EOSINOPHIL % 4.3 % (0.7-5.8); HEMOGLOBIN 11.2 g/dL (11.2-15.7); MEAN CELL VOLUME 95.9 fl (79.4-94.8); MEAN PLT VOLUME 9.2 fl (9.4-12.3); MONOCYTE # 0.35 x10^3/uL (0.24-0.86); MONOCYTE % 7.4 % (4.7-12.5); PLATELET COUNT 231 x10^3/uL (182-369); RDW 13.8 % (12.4-16.6)
[2024-11-29 10:11] LABS: POTASSIUM 4.2 mmol/L (3.5-5.1)
[2024-11-29 10:15] LABS: ALBUMIN 3.2 g/dl (3.4-5.0); BLOOD UREA NITROGEN 18.7 mg/dL (7-18)
[2024-11-29 10:18] LABS: CREATININE 1.1 mg/dL (0.55-1.3)
[2024-11-29 10:19] LABS: BILIRUBIN,TOTAL 0.5 mg/dL (0.2-1); TOT PROT 5.8 g/dl (6.4-8.2)
[2024-11-30 08:14] LABS: ABSOLUTE IMMATURE GRANULOCYTES 0.01 x10^3/uL (0.0-0.031); BASOPHILS # 0.03 x10^3/uL (0.01-0.08); EOSINOPHIL % 2.9 % (0.7-5.8); EOSINOPHILS # 0.13 x10^3/uL (0.04-0.36); HEMOGLOBIN 9.9 g/dL (11.2-15.7); MCHC 31.9 g/dl (32.2-35.5); MEAN CELL VOLUME 96.3 fl (79.4-94.8); MEAN PLT VOLUME 9.3 fl (9.4-12.3); MONOCYTE # 0.54 x10^3/uL (0.24-0.86); MONOCYTE % 11.9 % (4.7-12.5); PLATELET COUNT 220 x10^3/uL (182-369); RDW 13.8 % (12.4-16.6)
[2024-11-30 08:31] LABS: POTASSIUM 4.4 mmol/L (3.5-5.1)
[2024-11-30 08:34] LABS: CALCIUM 8.8 mg/dL (8.5-10.1)
[2024-11-30 08:35] LABS: BLOOD UREA NITROGEN 17.5 mg/dL (7-18)
[2024-11-30 08:38] LABS: CREATININE 1.1 mg/dL (0.55-1.3)
[2024-11-30 08:39] LABS: BILIRUBIN,TOTAL 0.2 mg/dL (0.2-1); TOT PROT 5.2 g/dl (6.4-8.2)
[2024-12-01 07:42] VITALS: TEMP 97.9
[2024-12-01 12:47] VITALS: RESP 18
[2024-12-01 13:39] VITALS: BP 117/69; PULSE 73
== END 2024-12-01 17:15 | disposition home health service (06) | DRG 445 ==
LOC: JER 12:28 → JERBED 17:16 → INTOOBSV 17:16 → J7W 22:11 → OBSVTOIN 11-23 12:32 → UNDODISIN 12-01 11:02
PROVIDERS: ADMIT Internal Medicine; ATTEND Internal Medicine
DX: K80.20 Calculus of gallbladder without cholecystitis without obstruction (principal); E87.20 Acidosis, unspecified; E27.40 Unspecified adrenocortical insufficiency; E87.6 Hypokalemia; K83.8 Other specified diseases of biliary tract; I10 Essential (primary) hypertension; J44.9 Chronic obstructive pulmonary disease, unspecified; K21.9 Gastro-esophageal reflux disease without esophagitis; F32.A Depression, unspecified; D64.9 Anemia, unspecified
CPT/HCPCS: 0241U-QW; 36415; 71046-TC-FY; 71101-TC-LT-FY; 72040-TC; 72100-TC-FY; 72148-TC; 74177-TC; 74181-TC; 80053; 81003; 82150; 82962; 83605; 83690; 83735; 84100; 84484; 85025; 85027; 85610; 85730; 86850; 86900; 86901; 87086; 93005; 93010; 99285-25; G0378; J0131; Q9967